=== PATIENT | male | born 1940 | race Caucasian/White ===

== ENCOUNTER 2016-05-06 09:00 | Outpatient (RCR) | payer MEDICARE ==
--- OUTSIDE RECORDS SUMMARY | 2016-03-03 15:03 | XMS REPORT | Continuity of Care Document ---
Author Author [facility] Organization [facility] Address Unknown Phone Unavailable Care Team Providers Care Plant Buyer Name Role Phone KALPANA ESTES MD PCP Insurance Providers Payer Name Policy Number Subscriber Name Relationship Wps Medicare [id number] Mikel Coronel 18 Self / Same As Patient [employer] Supp [id number] Mikel Coronel 18 Self / Same As Patient Advance Directives Directive Response Recorded Date/Time Advance Directives Yes 07/07/15 5:20am Health Care Power of Histologist Y LITTLE -- 07/07/15 5:20am Organ Donor No 07/07/15 5:20am Resuscitation Status Full Code 07/07/15 5:20am Chief Complaint and Reason for Visit Chief Complaint DILANTIN TOXICITY Reason for Visit Seizure disorder Problems Active Problems Medical Problem Onset Date Status Altered mental status Unknown Acute Chest wall pain Unknown Acute Leukocytosis Unknown Acute Leukocytosis Unknown Acute Malaise and fatigue Unknown Acute Nausea Unknown Acute Renal colic Unknown Acute Seizure disorder Unknown Acute Medications Current Home Medications Medication Dose Units Route Directions Days/Qty Instructions Start Date Sertraline Hcl 100 Mg 100 Mg Oral Daily 06/28/11 Docusate Sodium 100 Mg 100 Mg Oral Bedtime 02/21/14 Aspirin 81 Mg 81 Mg Oral Daily 02/14/15 Levetiracetam 500 Mg 500 Mg Oral Daily 02/14/15 Multivitamin W-Minerals/Lutein 1 Each 1 Each Oral Daily 02/14/15 Losartan Potassium 100 Mg 100 Mg Oral Daily 02/14/15 Lisinopril/Hydrochlorothiazide 1 Each 1 Each Oral Daily 02/14/15 Atorvastatin Calcium 20 Mg 20 Mg Oral Daily 30 07/07/15 Haloperidol 0.5 Mg 0.5 Mg Oral Twice A Day 180 07/07/15 Ranitidine Hcl (Ranitidine) 150 Mg 150 Mg Oral Daily as needed for Abdominal Pain 30 07/07/15 Lorazepam 1 Mg 1 Mg Oral Twice A Day 180 07/07/15 Phenytoin Sodium Extended 100 Mg 100 Mg Oral Twice A Day 30 Days 07/07 Past Home Medications Medication Directions Ordered Status Amoxicillin/Clavulanate Potassium 1 Tab Tablet, 1 Tab Oral Twice A Day Discontinued [Meloxican] , 11/20/10 Discontinued [Simvastatin ] , 11/20/10 Discontinued [Lisinpril] , 11/20/10 Discontinued Aspirin 325 Mg Tab, 325 Mg Oral Daily 06/28/11 Discontinued Clopidogrel Bisulfate 75 Mg Tablet, 75 Mg Oral Daily 06/28/11 Discontinued Acetaminophen/Hydrocodone Bitart 1 Ea Tab, 1 Ea Oral Q4hr Prn 06/28/11 Discontinued Ibuprofen 200 Mg Tab, 600 Mg Oral Bedtime 06/28/11 Discontinued Lorazepam 0.5 Mg Tablet, 1 Each Oral Q8hr Prn 06/28/11 Discontinued Mirtazapine 15 Mg Tab, 15 Mg Oral Bedtime 06/28/11 Discontinued Multivitamins W-Minerals 1 Each Tablet, 1 Tab Oral Daily 06/28/11 Discontinued Phenytoin 50 Mg Tab.chew, 200 Mg Oral Daily @ 0800 06/28/11 Discontinued Phenytoin 50 Mg Tab.chew, 300 Mg Oral Bedtime 06/28/11 Discontinued Hctz/Lisinopril (Zestoretic) 1 Tab Tablet, 20-25 Mg Oral Daily 06/28/11 Discontinued Nebivolol Hcl 20 Mg Tablet, 20 Mg Oral Daily 06/28/11 Discontinued Lorazepam (Ativan) 1 Mg Tablet, 1 Mg Oral Every 8HRS as needed for Anxiety Discontinued Phenytoin Sodium 100 Mg Cap, 200 Mg Oral Twice A Day 06/08/12 Discontinued Phenytoin Sodium 100 Mg Cap, 300 Mg Oral Bedtime 06/08/12 Discontinued Hydrocodone Bit/Acetaminophen 1 Tab Tablet, 1-2 Tab Oral Every 4HRS as needed for Pain 11/16/13 Discontinued Metoprolol Succinate 50 Mg Tab.sr.24h, 50 Mg Oral Daily 02/20/14 Discontinued Metoprolol Succinate (Toprol Xl) 50 Mg Tab.sr.24h, 50 Mg Oral Daily 02/21/14 Discontinued [I-Caps] , 1 Tab Oral Bedtime 02/21/14 Discontinued Potassium Gluconate 99 Mg Tablet.er, 99 Mg Oral Daily 02/21/14 Discontinued [Fluticasone Propionate] 1 [place] Naspr, 0 [place] Nasal Daily 02/24/14 Discontinued Levetiracetam 500 Mg Tab, 500 Mg Oral Twice A Day 02/24/14 Discontinued Haloperidol 0.5 Mg Tablet, 0.5 Mg Oral Twice A Day 07/07/15 Discontinued Ranitidine Hcl (Ranitidine) 150 Mg Tablet, 150 Mg Oral Daily for Abdominal Pain 07/07/15 Discontinued Social History Social History Problem Response Recorded Date/Time Alcohol Use Denies Use 07/07/2015 5:20am Recreational Drug Use No 07/07/2015 5:20am Recent Foreign Travel No 11/16/2013 1:56pm Recent Infectious Disease Exposure No 11/16/2013 1:56pm Hospitalization with Isolation Denies 11/16/2013 1:56pm Sexually Transmitted Disease No 07/07/2015 5:20am HIV/AIDS No 07/07/2015 5:20am Smoking Status Former Smoker 07/07/2015 5:20am Do you dip or chew tobacco? No 07/07/2015 2:30am Query Response Start Date Stop Date Smoking Status Former Smoker 02/14/2011 Hospital Discharge Instructions Patient Instructions Physician Instructions Patient Instructions/FollowUp: Follow PT/OT recommendations for fall risk prevention Patient Problems: Dilantin toxicity Falls Seizure d/o Dementia [facility] [place] DISCHARGE ORDERS Height (Feet): 5 Height (Inches): 11.00 Weight (Pounds): 240 Weight (Ounces): 3.0 Reason Pt Homebound Difficulty ambulating and fall risk I Have Seen Pt [id number]: Yes Date of Face to Face: July 08, 2015 Discharged To: Home Diagnosis/Conditions HH Order: Med administration PT/OT *I certify that based on my findings, the following services are medically necessary Home Health Services: Services: Nursing Services, Cake Winder-Evaluate & Treat, Physical Therapy-Evaluate & Treat My clinical findings support the need for the above services; see Diagnosis. Dicharge Diet: No Restrictions Daily Activity as Tolerated: Yes New, Converted, or Re-newed RX: Other (No new Rxes) I certify that this patient is under my care and that I, a nurse practitioner or a physician; a surgical services assistant working with me, had a face to face encounter that - meets the physician face to face encounter requirements with this patient as dated. Care Plan Patient Instructions:: Follow PT/OT recommendations for fall risk prevention Patient Problems: Dilantin toxicityFallsSeizure d/oDementiaHOH Plan of Care Discharge Date 07/08/15 12:46pm Disposition 01 HOME, SELF-CARE Instructions/Education Provided Epilepsy (GEN) Prescriptions See Medication Section Care Plan and Goals See Discharge Instructions Section Functional Status Query Response Date Recorded Patient Orientation Normal For Age July 07, 2015 11:04am Patient Orientation Person Place Situation July 08, 2015 12:50pm Comprehension Ability Understands Concepts July 08, 2015 8:00am Allergies, Adverse Reactions, Alerts No known allergies. Immunizations Name Given Type Date of Pneumonia Vaccine 06/10/12 Historical Hepatitis A No Historical Hepatitis B No Historical Tetanus Booster (TDap) Unknown Historical Vital Signs Acute Vital Signs Vital Response Date/Time Temperature (Fahrenheit) 97.5 degrees F (97.6 - 99.5) 07/08/2015 12:46pm Temperature (Calculated Celsius) 36.55557 degrees C (36.4 - 37.5) 07/08/2015 10:00am Temperature Source Tympanic 07/08/2015 12:46pm Pulse Rate (adult) 90 bpm (60 - 90) 07/08/2015 12:46pm Respiratory Rate 20 bpm (12 - 24) 07/08/2015 12:46pm O2 Sat by Pulse Oximetry 98 % (88 - 100) 07/08/2015 12:46pm Blood Pressure 117/74 mm Hg 07/08/2015 12:46pm Blood Pressure Mean 88 mm Hg 07/08/2015 10:00am Pain Pain Intensity 0 07/08/2015 10:00am Height (Feet) 5 feet 07/07/2015 5:20am Height (Inches) 11.00 inches 07/07/2015 5:20am Height (Calculated Centimeters) 180.130443 cm 07/07/2015 5:20am Weight (Pounds) 240 pounds 07/07/2015 5:20am Weight (Ounces) 3.0 oz 07/07/2015 5:20am Weight (Calculated Grams) 871442.218 gm 07/07/2015 5:20am Weight (Calculated Kilograms) 108.427617 kilograms 07/07/2015 5:20am Calculated BMI 33.5 07/07/2015 5:20am Results Laboratory Results Test Name Result Units Flags Reference Collection Date/Time Result Date/ Time Comments White Blood Count 10.4 10^3/uL 4.3-11.0 07/08/2015 5:08am 07/08/2015 5: 44am Red Blood Count 4.20 10^6/uL L 4.35-5.85 07/08/2015 5:08am 07/08/2015 5: 44am Hemoglobin 13.1 G/DL L 13.3-17.7 07/08/2015 5:08am 07/08/2015 5:44am Hematocrit 39 % L 40-54 07/08/2015 5:08am 07/08/2015 5:44am Mean Corpuscular Volume 92 FL 80-99 07/08/2015 5:08am 07/08/2015 5: 44am Mean Corpuscular Hemoglobin 31 PG 25-34 07/08/2015 5:08am 07/08/2015 5: 44am Mean Corpuscular Hemoglobin Concent 34 G/DL 32-36 07/08/2015 5:08am 5:44am Red Cell Distribution Width 13.4 % 10.0-14.5 07/08/2015 5:08am 2015 5:44am Platelet Count 179 10^3/uL 130-400 07/08/2015 5:08am 07/08/2015 5:44am Mean Platelet Volume 9.6 FL 7.4-10.4 07/08/2015 5:08am 07/08/2015 5: 44am Neutrophils (%) (Auto) 58 % 42-75 07/08/2015 5:08am 07/08/2015 5:44am Lymphocytes (%) (Auto) 22 % 12-44 07/08/2015 5:08am 07/08/2015 5:44am Monocytes (%) (Auto) 17 % H 0-12 07/08/2015 5:0807/08/2015 5:44am Eosinophils (%) (Auto) 4 % 0-10 07/08/2015 5:08am 07/08/2015 5:44am Basophils (%) (Auto) 0 % 0-10 07/08/2015 5:0807/08/2015 5:44am Neutrophils # (Auto) 6.0 X 10^3 1.8-7.8 07/08/2015 5:0807/08/2015 5: 44am Lymphocytes # (Auto) 2.3 X 10^3 1.0-4.0 07/08/2015 5:07/08/2015 5: 44am Monocytes # (Auto) 1.8 X 10^3 H 0.0-1.0 07/08/2015 5:07/08/2015 5: 44am Eosinophils # (Auto) 0.4 10^3/uL H 0.0-0.3 07/08/2015 5:07/08/2015 5 :44am Basophils # (Auto) 0.0 10^3/uL 0.0-0.1 07/08/2015 5:07/08/2015 5: 44am Neutrophils % (Manual) 83 % 07/07/2015 2:07/07/2015 2:53am Band Neutrophils 3 % 07/07/2015 2:07/07/2015 2:53am Lymphocytes % (Manual) 4 % 07/07/2015 2:07/07/2015 2:53am Monocytes % (Manual) 6 % 07/07/2015 2:07/07/2015 2:53am Eosinophils % (Manual) 0 % 07/07/2015 2:07/07/2015 2:53am Basophils % (Manual) 0 % 07/07/2015 2:07/07/2015 2:53am Reactive Lymphocytes 4 % 07/07/2015 2:07/07/2015 2:53am Blood Morphology Comment NORMAL 07/07/2015 2:07/07/2015 2: 53am Urine Color YELLOW 07/07/2015 4:00am 07/07/2015 4:21am Urine Clarity CLEAR 07/07/2015 4:00am 07/07/2015 4:21am Urine pH 5 5-9 07/07/2015 4:00am 07/07/2015 4:21am Urine Specific [place] 1.015 * 1.016-1.022 07/07/2015 4:00am 2015 4:21am Urine Protein NEGATIVE NEGATIVE 07/07/2015 4:00am 07/07/2015 4:21am Urine Glucose (UA) NEGATIVE NEGATIVE 07/07/2015 4:00am 07/07/2015 4: 21am Urine RBC (Auto) 2+ * NEGATIVE 07/07/2015 4:00am 07/07/2015 4:21am Urine Ketones NEGATIVE NEGATIVE 07/07/2015 4:00am 07/07/2015 4:21am Urine Nitrite NEGATIVE NEGATIVE 07/07/2015 4:00am 07/07/2015 4:21am Urine Bilirubin NEGATIVE NEGATIVE 07/07/2015 4:00am 07/07/2015 4: 21am Urine Urobilinogen NORMAL MG/DL NORMAL 07/07/2015 4:00am 07/07/2015 4: 21am Urine Leukocyte Esterase NEGATIVE NEGATIVE 07/07/2015 4:00am 2015 4:21am Urine RBC RARE /HPF 07/07/2015 4:00am 07/07/2015 4:21am Urine WBC NONE /HPF 07/07/2015 4:00am 07/07/2015 4:21am Urine Bacteria NEGATIVE /HPF 07/07/2015 4:00am 07/07/2015 4:21am Urine Squamous Epithelial Cells RARE /HPF 07/07/2015 4:00am 2015 4:21am Urine Crystals NONE /LPF 07/07/2015 4:00am 07/07/2015 4:21am Urine Casts NONE /LPF 07/07/2015 4:00am 07/07/2015 4:21am Urine Mucus NEGATIVE /LPF 07/07/2015 4:00am 07/07/2015 4:21am Urine Culture Indicated NO 07/07/2015 4:00am 07/07/2015 4:21am Sodium Level 139 MMOL/L 135-145 07/08/2015 5:08am 07/08/2015 6:53am Potassium Level 3.3 MMOL/L L 3.6-5.0 07/08/2015 5:08am 07/08/2015 6:53am Chloride Level 104 MMOL/L 98-107 07/08/2015 5:0807/08/2015 6:53am Carbon Dioxide Level 25 MMOL/L 21-32 07/08/2015 5:0807/08/2015 6: 53am Anion Gap 10 MMOL/L 5-14 07/08/2015 5:0807/08/2015 6:53am Blood Urea Nitrogen 14 MG/DL 7-18 07/08/2015 5:0807/08/2015 6:53am Creatinine 0.69 MG/DL 0.60-1.30 07/08/2015 5:0807/08/2015 6:53am BUN/Creatinine Ratio 20 07/08/2015 5:0807/08/2015 6:53am Estimat Glomerular Filtration Rate > 60 07/08/2015 5:082015 6:53am GFR INTERPRETIVE DATA UNITS FOR ESTIMATED GFR (eGFR): mL/min/1.73 M2 REFERENCE RANGE FOR ESTIMATED GFR (eGFR) eGFR NORMAL eGFR >60 MODERATELY DECREASED eGFR 30-59 SEVERLY DECREASED eGFR 15-29 KIDNEY FAILURE <15 (OR DIALYSIS) Glucose Level 122 MG/DL H 70-105 07/08/2015 5:0807/08/2015 6:53am Calcium Level 8.2 MG/DL L 8.5-10.1 07/08/2015 5:0807/08/2015 6:53am Total Bilirubin 0.5 MG/DL 0.1-1.0 07/08/2015 5:07/08/2015 6:53am Alkaline Phosphatase 115 U/L 40-136 07/08/2015 5:0807/08/2015 6: 53am Aspartate Amino Transf (AST/SGOT) 18 U/L 5-34 07/08/2015 5:082015 6:53am Alanine Aminotransferase (ALT/SGPT) 15 U/L 0-55 07/08/2015 5:0807/07 6:53am Total Protein 6.7 G/DL 6.4-8.2 07/08/2015 5:0807/08/2015 6:53am Albumin 3.9 G/DL 3.2-4.5 07/08/2015 5:0807/08/2015 6:53am Phenytoin (Dilantin) Level 15.2 UG/ML 10.0-20.0 07/08/2015 5:08am 07/07 6:53am Procedures No known history of procedures. Encounters Encounter Location Arrival/Admit Date Discharge/Depart Date Attending Provider Discharged Inpatient (obs) [facility] 07/07/15 4:35am 12:46pm SUNNI JENNINGS DO Recent Diagnosis Seizure disorder
[~2016-05-06 09:00] MED LIST: ACET-2267 PO; AGM875T PO; AMOX1TAB12 PO; ASP325T PO; ASPI81TA42 PO; ATOR20TA49 PO; ATOR20TA66 PO; CLOP75TA PO; CLPD75T PO; DCS100C PO; DIPH25TA65 PO; EYE VITAMINS; Fluticasone Propionate NS; HALO0.5T PO; HERB; HYDR-1231 PO; HYDR-2890 PO; HYDR-3720 PO; I-CAPS PO; IBP200T PO; LEVE500T PO; LEVE500T6 PO; LISI1TAB10 PO; LISINPRIL; LORA-794 PO; LORA1TAB PO; LOSA100T28 PO; MAGN400T6 PO; MELOXICAN; MENT396L TP; METO-272 PO; MIRT15TA6 PO; MRTZ15T PO; MULT-142 PO; MULT1TAB12 PO; NEBI20TA2 PO; OMG1KC PO; ONDA4TAB11 PO; PHEN-633 PO; PHEN100C11 PO; PHEN100C4 PO; PHEN50TA PO; PHN100C; POTA99TA13 PO; POTA99TA18 PO; RANI150T11 PO; RANI150T90 PO; SERT100T8 PO; SIMVASTATIN; SRTR100T PO; TAMS0.4C98 PO; [UNRECOGNIZED DRUG - OTHER]; [UNRECOGNIZED DRUG - OTHER]
== END 2016-06-01 | disposition home or self-care (01) ==
LOC: PULM 09:00
PROVIDERS: ATTEND Nurse Practitioner Family
DX: R06.02 Shortness of breath (principal)
CPT/HCPCS: 99211

== ENCOUNTER 2016-08-08 10:38 | Day surgery (SDC) | payer MEDICARE ==
[~2016-08-08] VITALS: Ht 180.3 cm; Wt 104.3 kg
--- OUTSIDE RECORDS SUMMARY | 2016-08-08 10:45 | XMS REPORT | Continuity of Care Document ---
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, COGNITIVE 10/01/2010 Ot 438.7 DISTURBANCES OF VISION 10/01/2010 Ot 719.41 JOINT PAIN-SHLDER 10/01/2010 Ot 780.39 OTHER CONVULSIONS 10/01/2010 Ot V57.1 PHYSICAL THERAPY NEC 10/01/2010 Ot V57.21 ENCOUNTER FOR OCCUPATIONAL THERAPY 10/01/2010 Ot V57.3 CARE INVOLVING SPEECH-LANGUAGE THERAPY 10/01/2010 Ot V58.69 OTH MED,LT,CURRENT USE 11/20/2010 Ot 272.4 HYPERLIPIDEMIA NEC/NOS 11/20/2010 Ot 368.8 VISUAL DISTURBANCES NEC 11/20/2010 Ot 401.9 HYPERTENSION NOS 11/20/2010 Ot 780.39 OTHER CONVULSIONS 11/20/2010 Ot 780.4 DIZZINESS AND GIDDINESS 11/20/2010 Ot V12.59 HX-CIRCULATORY SYST DIS,NEC 11/20/2010 Ot V58.69 OTH MED,LT,CURRENT USE 11/20/2010 Ot V76.44 SCREEN MAL NEOP-PROSTATE 01/01/2011 Ot 368.8 VISUAL DISTURBANCES NEC 01/01/2011 Ot 401.9 HYPERTENSION NOS 01/01/2011 Ot 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, COGNITIVE 01/01/2011 Ot 438.7 DISTURBANCES OF VISION 01/01/2011 Ot 719.41 JOINT PAIN-SHLDER 01/01/2011 Ot 780.39 OTHER CONVULSIONS 01/01/2011 Ot V57.1 PHYSICAL THERAPY NEC 01/01/2011 Ot V57.21 ENCOUNTER FOR OCCUPATIONAL THERAPY 01/01/2011 Ot V57.3 CARE INVOLVING SPEECH-LANGUAGE THERAPY 01/01/2011 Ot V58.69 OTH MED,LT,CURRENT USE 02/07/2011 Ot 368.8 VISUAL DISTURBANCES NEC 02/07/2011 Ot 401.9 HYPERTENSION NOS 02/07/2011 Ot 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, COGNITIVE 02/07/2011 Ot 438.7 DISTURBANCES OF VISION 02/07/2011 Ot 719.41 JOINT PAIN-SHLDER 02/07/2011 Ot 780.39 OTHER CONVULSIONS 02/07/2011 Ot V57.1 PHYSICAL THERAPY NEC 02/07/2011 Ot V57.21 ENCOUNTER FOR OCCUPATIONAL THERAPY 02/07/2011 Ot V57.3 CARE INVOLVING SPEECH-LANGUAGE THERAPY 02/07/2011 Ot V58.69 OTH MED,LT,CURRENT USE 06/26/2011 Ot 276.51 DEHYDRATION 06/26/2011 Ot 345.90 EPILEPSY UNSPEC W/O MENTION INTRACTABLE 06/26/2011 Ot 414.01 CORONARY ATHEROSCLEROSIS OF [place] CORON 06/26/2011 Ot 458.9 HYPOTENSION NOS 06/26/2011 Ot 719.46 JOINT PAIN-L/LEG 06/26/2011 Ot 780.79 OTH MALAISE FATIGUE 06/26/2011 Ot V03.82 PROPHYLACTIC VACC AGAINST STREPTOCOCCUS 06/26/2011 Ot V12.54 PERSONAL HX OF TIA, CEREBRAL INFARCTION 06/26/2011 Ot V15.82 HISTORY OF TOBACCO USE 06/26/2011 Ot V45.82 PERCUTANEOUS TRANSLUM CORON ANGIOPLASTY 06/28/2011 Ot 305.1 TOBACCO USE DISORDER 06/28/2011 Ot 311 DEPRESSIVE DISORDER NEC 06/28/2011 Ot 345.90 EPILEPSY UNSPEC W/O MENTION INTRACTABLE 06/28/2011 Ot 359.4 TOXIC MYOPATHY 06/28/2011 Ot 369.9 VISUAL LOSS NOS 06/28/2011 Ot 401.9 HYPERTENSION NOS 06/28/2011 Ot 414.01 CORONARY ATHEROSCLEROSIS OF [place] CORON 06/28/2011 Ot 438.7 DISTURBANCES OF VISION 06/28/2011 Ot 458.29 OTHER IATROGENIC HYPOTENSION 06/28/2011 Ot 562.10 DIVERTICULOSIS COLON (W/O MENT OF HEMORR 06/28/2011 Ot 715.36 LOC OSTEOARTH NOS-L/LEG 06/28/2011 Ot 780.79 OTH MALAISE FATIGUE 06/28/2011 Ot E942.2 ADV EFF ANTILIPEMICS 06/28/2011 Ot V45.82 PERCUTANEOUS TRANSLUM CORON ANGIOPLASTY 06/28/2011 Ot V57.1 PHYSICAL THERAPY NEC 06/28/2011 Ot V57.21 ENCOUNTER FOR OCCUPATIONAL THERAPY 06/12/2012 MEERA BROWN, KALPANA Mcdermott Ot 311 DEPRESSIVE DISORDER NEC 06/12/2012 KALPANA ESTES MD Ot 345.90 EPILEPSY UNSPEC W/O MENTION INTRACTABLE 06/12/2012 KALPANA ESTES MD Ot 401.9 HYPERTENSION NOS 06/12/2012 KALPANA ESTES MD Ot 414.01 CORONARY ATHEROSCLEROSIS OF [place] CORON 06/12/2012 KALPANA ESTES MD Ot 438.89 OTH LATE EFFECT-CEREBROVASCULAR DISEASE 06/12/2012 KALPANA ESTES MD Ot 486 PNEUMONIA, ORGANISM NOS 06/12/2012 KALPANA ESTES MD Ot 496 CHR AIRWAY OBSTRUCT NEC 06/12/2012 KALPANA ESTES MD Ot 518.0 PULMONARY COLLAPSE 06/12/2012 KALPANA ESTES MD Ot 781.99 NERV/MUSCULOSKEL SYS SYMP NEC 06/12/2012 KALPANA ESTES MD Ot V03.82 PROPHYLACTIC VACC AGAINST STREPTOCOCCUS 06/12/2012 KALPANA ESTES MD Ot V15.82 HISTORY OF TOBACCO USE 06/12/2012 KALPANA ESTES MD Ot V45.82 PERCUTANEOUS TRANSLUM CORON ANGIOPLASTY 11/16/2013 CLIFF ELI MD Ot 786.50 CHEST PAIN NOS 11/16/2013 CLIFF ELI MD Ot 786.52 PAINFUL RESPIRATION 02/23/2014 KALPANA ESTES MD Ot 272.0 02/23/2014 KALPANA ESTES MD Ot 278.00 02/23/2014 KALPANA ESTES MD Ot 293.0 02/23/2014 KALPANA ESTES MD Ot 294.20 02/23/2014 KALPANA ESTES MD Ot 311 02/23/2014 KALPANA ESETS MD Ot 345.90 02/23/2014 KALPANA ESTES MD Ot 366.9 02/23/2014 MEERA BROWN, KALPANA Mcdermott Ot 389.9 02/23/2014 MEERA BROWN, KALPANA Mcdermott Ot 401.9 02/23/2014 KALPANA ESTES MD Ot 414.01 02/23/2014 KALPANA ESTES MD Ot 496 02/23/2014 KALPANA ESTES MD Ot 602.9 02/23/2014 KALPANA ESTES MD Ot 696.1 02/23/2014 MEERA MD, KALPANA J Ot 715.36 02/23/2014 MEERA BROWN, KALPANA J Ot 788.30 02/23/2014 MEERA BROWN, KALPANA J Ot 995.93 02/23/2014 MEERA BROWN, KALPANA J Ot V12.54 02/23/2014 MEERA BROWN, KALPANA J Ot V12.79 02/23/2014 MEERA BROWN, KALPANA J Ot V15.52 02/23/2014 MEERA BROWN, KALPANA J Ot V15.82 02/23/2014 MEERA BROWN, KALPANA J Ot V45.82 02/23/2014 MEERA BROWN, KALPANA J Ot V45.89 02/23/2014 MEERA BROWN, KALPANA J Ot V85.31 02/24/2014 MEERA BROWN, KALPANA J Ot 272.0 02/24/2014 MEERA BROWN, KALPANA J Ot 278.00 02/24/2014 MEERA BROWN, KALPANA J Ot 293.0 02/24/2014 MEERA BROWN, KALPANA J Ot 294.20 02/24/2014 MEERA BROWN, KALPANA J Ot 311 02/24/2014 MEERA BROWN, KALPANA J Ot 345.90 02/24/2014 MEERA BROWN, KALPANA J Ot 366.9 02/24/2014 MEERA BROWN, KALPANA J Ot 389.9 02/24/2014 MEERA BROWN, KALPANA J Ot 401.9 02/24/2014 MEERA BROWN, KALPANA J Ot 414.01 02/24/2014 MEERA BROWN, KALPANA J Ot 496 02/24/2014 MEERA BROWN, KALPANA J Ot 602.9 02/24/2014 MEERA BROWN, KALPANA J Ot 696.1 02/24/2014 MEERA BROWN, KALPANA J Ot 715.36 02/24/2014 MEERA BROWN, KALPANA J Ot 788.30 02/24/2014 MEERA BROWN, KALPANA J Ot 995.93 02/24/2014 MEERA BROWN, KALPANA J Ot V12.54 02/24/2014 MEERA BROWN, KALPANA J Ot V12.79 02/24/2014 MEERA BROWN, KALPANA J Ot V15.52 02/24/2014 MEERA BROWN, KALPANA J Ot V15.82 02/24/2014 MEERA BROWN, KALPANA J Ot V45.82 02/24/2014 MEERA BROWN, KALPANA J Ot V45.89 02/24/2014 MEERA BROWN, KALPANA J Ot V85.31 02/24/2014 MEERA BROWN, KALPANA J Ot 272.0 PURE HYPERCHOLESTEROLEM 02/24/2014 KALPANA ESTES MD Ot 278.00 OBESITY, NOS 02/24/2014 KALPANA ESTES MD Ot 293.0 DELIRIUM DUE TO CONDITIONS CLASSIFIED EL 02/24/2014 KALPANA ESTES MD Ot 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, UNSPECIFIED, 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 02/24/2014 KALPANA ESTES MD Ot 311 DEPRESSIVE DISORDER NEC 02/24/2014 KALPANA ESTES MD Ot 345.90 EPILEPSY UNSPEC W/O MENTION INTRACTABLE 02/24/2014 KALPANA ESTES MD Ot 366.9 CATARACT NOS 02/24/2014 KALPANA ESTES MD Ot 389.9 HEARING LOSS NOS 02/24/2014 KALPANA ESTES MD Ot 401.9 HYPERTENSION NOS 02/24/2014 KALPANA ESTES MD Ot 414.01 CORONARY ATHEROSCLEROSIS OF [place] CORON 02/24/2014 KALPANA ESTES MD Ot 496 CHR AIRWAY OBSTRUCT NEC 02/24/2014 KALPANA ESTES MD Ot 602.9 PROSTATIC DISORDER NOS 02/24/2014 KALPANA ESTES MD Ot 696.1 OTHER PSORIASIS 02/24/2014 KALPANA ESTES MD Ot 715.36 LOC OSTEOARTH NOS-L/LEG 02/24/2014 KALPANA ESTES MD Ot 788.30 UNSPECIFIED URINARY INCONTINENCE 02/24/2014 KALPANA ESTES MD Ot 995.93 SIRS DUE TO NONINFECTIOUS PROCESS W/O AC 02/24/2014 KALPANA ESTES MD Ot V12.54 PERSONAL HX OF TIA, CEREBRAL INFARCTION 02/24/2014 KALPANA ESTES MD Ot V12.79 PERSONAL HISTORY OTH SPEC DIGESTIVE SYST 02/24/2014 KALPANA ESTES MD Ot V15.52 PERSONAL HISTORY OF TRAUMATIC BRAIN INJU 02/24/2014 KALPANA ESTES MD Ot V15.82 HISTORY OF TOBACCO USE 02/24/2014 KALPANA ESTES MD Ot V45.82 PERCUTANEOUS TRANSLUM CORON ANGIOPLASTY 02/24/2014 KALPANA ESTES MD Ot V45.89 POSTSURGICAL STATES NEC 02/24/2014 KALPANA ESTES MD Ot V85.31 BODY MASS INDEX 31.0-31.9, ADULT 07/17/2014 PAUL MCQUEEN ON AWAKE COUNSELOR Ot 780.79 OTH MALAISE FATIGUE 07/17/2014 PAUL MCQUEEN ON AWAKE COUNSELOR Ot 787.01 NAUSEA WITH VOMITING 08/02/2014 KALPANA ETSES MD Ot 345.90 08/02/2014 KALPANA ESTES MD Ot 780.79 08/02/2014 MEERA BROWN, KALPANA Mcdermott Ot 959.01 08/02/2014 MEERA BROWN, KALPANA Baldemar Ot E849.0 08/02/2014 MEERA BROWN, KALPANA Mcdermott Ot E888.9 08/04/2014 MEERA BROWN, KALPANA Mcdermott Ot 345.90 08/04/2014 MEERA BROWN, KALPANA Mcdermott Ot 780.79 08/04/2014 MEERA BROWN, KALPANA Mcdermott Ot 959.01 08/04/2014 MEERA BROWN, KALPANA Mcdermott Ot E849.0 08/04/2014 MEERA BROWN, KALPANA Mcdermott Ot E888.9 01/08/2015 MEERA BROWN, KALPANA Mcdermott Ot R06.00 01/08/2015 MEERA BROWN, KALPANA Mcdermott Ot R10.11 01/08/2015 MEERA BROWN, KALPANA Mcdermott Ot R11.0 01/08/2015 MEERA BROWN, KALPANA Mcdermott Ot R12 01/08/2015 KALPANA ESTES MD Ot R53.1 01/11/2015 MEERA BROWN, KALPANA Mcdermott Ot R06.00 01/11/2015 MEERA BROWN, KALPANA Mcdermott Ot R10.11 01/11/2015 MEERA BROWN, KALPANA Mcdermott Ot R11.0 01/11/2015 KALPANA ESTES MD Ot R12 01/11/2015 KALPANA ESTES MD Ot R53.1 01/12/2015 Ot 250.00 01/12/2015 Ot 401.9 01/12/2015 Ot 602.9 01/12/2015 Ot 780.4 01/12/2015 Ot 781.3 01/12/2015 Ot 785.0 01/12/2015 Ot 345.90 01/12/2015 Ot 401.9 01/12/2015 Ot 429.3 01/12/2015 Ot 518.0 01/12/2015 Ot 786.50 01/12/2015 Ot V12.54 01/12/2015 Ot V58.69 01/12/2015 Ot 397.0 01/12/2015 Ot 401.9 01/12/2015 Ot 424.0 01/12/2015 Ot 429.3 01/12/2015 Ot 401.9 01/12/2015 Ot 473.9 01/12/2015 Ot 368.9 01/12/2015 Ot 780.39 01/12/2015 Ot 780.4 01/12/2015 Ot V12.54 01/12/2015 Ot 272.4 01/12/2015 Ot 345.90 01/12/2015 Ot 401.9 01/12/2015 Ot 434.91 01/12/2015 Ot V58.69 01/12/2015 Ot V58.83 01/12/2015 Ot V76.44 01/12/2015 Ot 433.10 01/12/2015 Ot 434.91 01/12/2015 MEERA BROWN, KALPANA Mcdermott Ot 550.90 01/12/2015 MEERA BROWN, KALPANA Mcdermott Ot 562.10 01/12/2015 MEERA BROWN, KALPANA Mcdermott Ot 780.93 01/12/2015 MEERA BROWN, KALPANA Mcdermott Ot 786.2 01/12/2015 MEERA BROWN, KALPANA Mcdermott Ot 345.90 01/12/2015 MEERA BROWN, KALPANA Mcdermott Ot 780.79 01/12/2015 MEERA BROWN, KALPANA Mcdermott Ot 959.01 01/12/2015 MEERA BROWN, KALPANA Mcdermott Ot E849.0 01/12/2015 MEERA BROWN, KALPANA Mcdermott Ot E888.9 01/12/2015 MEERA BROWN, KALPANA Mcdermott Ot R06.00 01/12/2015 MEERA BROWN, KALPANA Mcdermott Ot R10.11 01/12/2015 MEERA BROWN, KALPANA Mcdermott Ot R11.0 01/12/2015 KALPANA ESTES MD Ot R12 01/12/2015 MEERA BROWN, KALPANA Mcdermott Ot R53.1 02/01/2015 KESHAV DERAS MD Ot I08.1 02/01/2015 KESHAV DERAS MD Ot I10 02/01/2015 KESHAV DERAS MD Ot I63.9 02/01/2015 KESHAV DERAS MD Ot I65.23 02/01/2015 KESHAV DERAS MD Ot R06.02 02/01/2015 KESHAV DERAS MD Ot R56.9 02/01/2015 KESHAV DERAS MD Ot R94.31 02/12/2015 KESHAV DERAS MD Ot I08.1 02/12/2015 KESHAV DERAS MD Ot I10 02/12/2015 KESHAV DERAS MD Ot I63.9 02/12/2015 KESHAV DERAS MD Ot I65.23 02/12/2015 KESHAV DERAS MD Ot R06.02 02/12/2015 KESHAV DERAS MD Ot R56.9 02/12/2015 KESHVA DERAS MD Ot R94.31 02/14/2015 KESHAV DERAS MD Ot I10 02/14/2015 KESHAV DERAS MD Ot I63.9 02/14/2015 KESHAV DERAS MD Ot R06.02 02/14/2015 KESHAV DERAS MD Ot R56.9 02/14/2015 KESHAV DERAS MD Ot R94.31 02/14/2015 KESHAV DERAS MD Ot E78.5 HYPERLIPIDEMIA, UNSPECIFIED 02/14/2015 KESHAV DERAS MD Ot H53.8 OTHER VISUAL DISTURBANCES 02/14/2015 KESHAV DERAS MD Ot I10 ESSENTIAL (PRIMARY) HYPERTENSION 02/14/2015 KESHAV DERAS MD Ot I25.10 ATHSCL HEART DISEASE OF [place] CORONARY 02/14/2015 KESHAV DERAS MD Ot 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 02/14/2015 KESHAV DERAS MD Ot I69.398 OTHER SEQUELAE OF CEREBRAL INFARCTION 02/14/2015 KESHAV DERAS MD Ot I70.201 UNSP ATHSCL [place] ARTERIES OF [facility] 02/14/2015 KESHAV DERAS MD Ot R94.39 ABNORMAL RESULT OF OTHER CARDIOVASCULAR 02/14/2015 KESHAV DERAS MD Ot Z79.899 OTHER CUSTODIAL (CURRENT) DRUG THERAPY 02/14/2015 KESHAV DERAS MD Ot Z87.891 PERSONAL HISTORY OF NICOTINE DEPENDENCE 02/14/2015 KESHAV DERAS MD Ot Z98.61 CORONARY ANGIOPLASTY STATUS 02/14/2015 KESHAV DERAS MD Ot I10 02/14/2015 KESHAV DERAS MD Ot I63.9 02/14/2015 KESHAV DERAS MD Ot R06.02 02/14/2015 KESHAV DERAS MD Ot R56.9 02/14/2015 KESHAV DERAS MD Ot R94.31 03/20/2015 Ot 250.00 03/20/2015 Ot 401.9 03/20/2015 Ot 602.9 03/20/2015 Ot 780.4 03/20/2015 Ot 781.3 03/20/2015 Ot 785.0 03/20/2015 Ot 345.90 03/20/2015 Ot 401.9 03/20/2015 Ot 429.3 03/20/2015 Ot 518.0 03/20/2015 Ot 786.50 03/20/2015 Ot V12.54 03/20/2015 Ot V58.69 03/20/2015 Ot 397.0 03/20/2015 Ot 401.9 03/20/2015 Ot 424.0 03/20/2015 Ot 429.3 03/20/2015 Ot 401.9 03/20/2015 Ot 473.9 03/20/2015 Ot 368.9 03/20/2015 Ot 780.39 03/20/2015 Ot 780.4 03/20/2015 Ot V12.54 03/20/2015 Ot 272.4 03/20/2015 Ot 345.90 03/20/2015 Ot 401.9 03/20/2015 Ot 434.91 03/20/2015 Ot V58.69 03/20/2015 Ot V58.83 03/20/2015 Ot V76.44 03/20/2015 Ot 433.10 03/20/2015 Ot 434.91 03/20/2015 MEERA BROWN, [facility] Ot 550.90 03/20/2015 MEERA BROWN, [facility] Ot 562.10 03/20/2015 MEERA BROWN, [facility] Ot 780.93 03/20/2015 MEERA BROWN, [facility] Ot 786.2 03/20/2015 MEERA BROWN, [facility] Ot 345.90 03/20/2015 MEERA BROWN, [facility] Ot 780.79 03/20/2015 MEERA BROWN, [facility] Ot 959.01 03/20/2015 MEERA BROWN, [facility] Ot E849.0 03/20/2015 MEERA BROWN, [facility] Ot E888.9 03/20/2015 MEERA BROWN, [facility] Ot R06.00 03/20/2015 MEERA BROWN, [facility] Ot R10.11 03/20/2015 MEERA BROWN, [facility] Ot R11.0 03/20/2015 MEERA BROWN, KALPANA J Ot R12 03/20/2015 MEERA BROWN, [facility] Ot R53.1 03/20/2015 BRAEDEN BROWN, KESHAV Mcdermott Ot I08.1 03/20/2015 BRAEDEN BROWN, KESHAV Mcdermott Ot I10 03/20/2015 KESHAV DERAS MD Ot I63.9 03/20/2015 KESHAV DERAS MD Ot I65.23 03/20/2015 KESHAV DERAS MD Ot R06.02 03/20/2015 BRAEDEN BROWN, KESHAV Mcdermott Ot R56.9 03/20/2015 BRAEDEN BROWN, KESHAV Mcdermott Ot R94.31 03/20/2015 BRAEDEN BROWN, KESHAV Mcdermott Ot I10 03/20/2015 BRAEDEN BROWN, KESHAV Mcdermott Ot I63.9 03/20/2015 BRAEDEN BROWN, KESHAV Mcdermott Ot R06.02 03/20/2015 BRAEDEN BROWN, KESHAV Mcdermott Ot R56.9 03/20/2015 BRAEDEN BROWN, KESHAV Mcdermott Ot R94.31 03/20/2015 GRISELDA RAMIREZ DO Ot G47.10 HYPERSOMNIA, UNSPECIFIED 03/20/2015 GRISELDA RAMIREZ DO Ot R06.83 SNORING 03/20/2015 GRISELDA RAMIREZ DO Ot Z86.73 PRSNL HX OF TIA (TIA), AND CEREB INFRC W 07/08/2015 SUNNI JENNINGS DO Ot E78.5 HYPERLIPIDEMIA, UNSPECIFIED 07/08/2015 SUNNI JENNINGS DO Ot F03.90 UNSPECIFIED DEMENTIA 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L 07/08/2015 SUNNI JENNINSG DO Ot G40.909 EPILEPSY, UNSP, NOT INTRACTABLE, WITHOUT 07/08/2015 SUNNI JENNINGS DO Ot I10 ESSENTIAL (PRIMARY) HYPERTENSION 07/08/2015 SUNNI JENNINGS DO Ot I25.10 ATHSCL HEART DISEASE OF [place] CORONARY 07/08/2015 SUNNI JENNINGS DO Ot R40.0 SOMNOLENCE 07/08/2015 SUNNI JENNINGS DO Ot R41.0 DISORIENTATION, UNSPECIFIED 07/08/2015 SUNNI JENNINGS DO Ot T42.0X5A ADVERSE EFFECT OF HYDANTOIN DERIVATIVES, 07/08/2015 SUNNI JENNINGS DO Ot Z95.5 PRESENCE OF CORONARY ANGIOPLASTY IMPLANT 09/12/2015 Ot 345.90 EPILEPSY UNSPEC W/O MENTION INTRACTABLE 09/12/2015 Ot 401.9 HYPERTENSION NOS 09/12/2015 Ot 429.3 CARDIOMEGALY 09/12/2015 Ot 518.0 PULMONARY COLLAPSE 09/12/2015 Ot 786.50 CHEST PAIN NOS 09/12/2015 Ot V12.54 PERSONAL HX OF TIA, CEREBRAL INFARCTION 09/12/2015 Ot V58.69 OTH MED,LT,CURRENT USE 09/12/2015 Ot 368.9 VISUAL DISTURBANCE NOS 09/12/2015 Ot 780.39 OTHER CONVULSIONS 09/12/2015 Ot 780.4 DIZZINESS AND GIDDINESS 09/12/2015 Ot V12.54 PERSONAL HX OF TIA, CEREBRAL INFARCTION 09/12/2015 Ot 272.4 HYPERLIPIDEMIA NEC/NOS 09/12/2015 Ot 345.90 EPILEPSY UNSPEC W/O MENTION INTRACTABLE 09/12/2015 Ot 401.9 HYPERTENSION NOS 09/12/2015 Ot 434.91 CEREBRAL ART OCCLUSION NOS W CEREBRAL IN 09/12/2015 Ot V58.69 OTH MED,LT,CURRENT USE 09/12/2015 Ot V58.83 ENCOUNTER FOR THERAPEUTIC DRUG MONITORIN 09/12/2015 Ot V76.44 SCREEN MAL NEOP-PROSTATE 09/12/2015 Ot 433.10 CAROTID ARTERY OCCLUSION W O CEREBRAL IN 09/12/2015 Ot 434.91 CEREBRAL ART OCCLUSION NOS W CEREBRAL IN 09/12/2015 MEERA BROWN, KALPANA Mcdermott Ot 550.90 UNILAT INGUINAL HERNIA 09/12/2015 KALPANA ESTES MD Ot 562.10 DIVERTICULOSIS COLON (W/O MENT OF HEMORR 09/12/2015 KALPANA ESTES MD Ot 780.93 MEMORY LOSS 09/12/2015 KALPANA ESTES MD Ot 786.2 COUGH 09/12/2015 KALPANA ESTES MD Ot 345.90 EPILEPSY UNSPEC W/O MENTION INTRACTABLE 09/12/2015 KALPANA ESTES MD Ot 780.79 OTH MALAISE FATIGUE 09/12/2015 MEERA BROWN, KALPANA Mcdermott Ot 959.01 HEAD INJURY, NOS 09/12/2015 KALPANA ESTES MD Ot E849.0 ACCIDENT IN HOME 09/12/2015 KALPANA ESTES MD Ot E888.9 FALL NOS 09/12/2015 KALPANA ESTES MD Ot R06.00 DYSPNEA, UNSPECIFIED 09/12/2015 KALPANA ESTES MD Ot R10.11 RIGHT UPPER QUADRANT PAIN 09/12/2015 KALPANA ESTES MD Ot R11.0 NAUSEA 09/12/2015 KALPANA ESTES MD Ot R12 HEARTBURN 09/12/2015 KALPANA ESTES MD Ot R53.1 WEAKNESS 09/12/2015 KESHAV DERAS MD Ot I08.1 RHEUMATIC DISORDERS OF BOTH [place] AND T 09/12/2015 KESHAV DERAS MD Ot I10 ESSENTIAL (PRIMARY) HYPERTENSION 09/12/2015 KESHAV DERAS MD Ot I63.9 CEREBRAL INFARCTION, UNSPECIFIED 09/12/2015 KESHAV DERAS MD Ot I65.23 OCCLUSION AND STENOSIS OF BILATERAL BLUE 09/12/2015 KESHAV DERAS MD Ot R06.02 SHORTNESS OF BREATH 09/12/2015 KESHAV DERAS MD Ot R56.9 UNSPECIFIED CONVULSIONS 09/12/2015 KESHAV DERAS MD Ot R94.31 ABNORMAL ELECTROCARDIOGRAM [ECG] [EKG] 09/12/2015 KESHAV DERAS MD Ot I10 ESSENTIAL (PRIMARY) HYPERTENSION 09/12/2015 KESHAV DERAS MD Ot I63.9 CEREBRAL INFARCTION, UNSPECIFIED 09/12/2015 KESHAV DERAS MD Ot R06.02 SHORTNESS OF BREATH 09/12/2015 KESHAV DERAS MD Ot R56.9 UNSPECIFIED CONVULSIONS 09/12/2015 KESHAV DERAS MD Ot R94.31 ABNORMAL ELECTROCARDIOGRAM [ECG] [EKG] 10/05/2015 GRISELDA RAMIREZ DO Ot R06.02 SHORTNESS OF BREATH 10/11/2015 GRISELDA RAMIREZ DO Ot R06.02 SHORTNESS OF BREATH 01/23/2016 Ot 345.90 EPILEPSY UNSPEC W/O MENTION INTRACTABLE 01/23/2016 Ot 401.9 HYPERTENSION NOS 01/23/2016 Ot 429.3 CARDIOMEGALY 01/23/2016 Ot 518.0 PULMONARY COLLAPSE 01/23/2016 Ot 786.50 CHEST PAIN NOS 01/23/2016 Ot V12.54 PERSONAL HX OF TIA, CEREBRAL INFARCTION 01/23/2016 Ot V58.69 OTH MED,LT,CURRENT USE 01/23/2016 Ot 368.9 VISUAL DISTURBANCE NOS 01/23/2016 Ot 780.39 OTHER CONVULSIONS 01/23/2016 Ot 780.4 DIZZINESS AND GIDDINESS 01/23/2016 Ot V12.54 PERSONAL HX OF TIA, CEREBRAL INFARCTION 01/23/2016 Ot 272.4 HYPERLIPIDEMIA NEC/NOS 01/23/2016 Ot 345.90 EPILEPSY UNSPEC W/O MENTION INTRACTABLE 01/23/2016 Ot 401.9 HYPERTENSION NOS 01/23/2016 Ot 434.91 CEREBRAL ART OCCLUSION NOS W CEREBRAL IN 01/23/2016 Ot V58.69 OTH MED,LT,CURRENT USE 01/23/2016 Ot V58.83 ENCOUNTER FOR THERAPEUTIC DRUG MONITORIN 01/23/2016 Ot V76.44 SCREEN MAL NEOP-PROSTATE 01/23/2016 Ot 433.10 CAROTID ARTERY OCCLUSION W O CEREBRAL IN 01/23/2016 Ot 434.91 CEREBRAL ART OCCLUSION NOS W CEREBRAL IN 01/23/2016 KALPANA ESTES MD Ot 550.90 UNILAT INGUINAL HERNIA 01/23/2016 KALPANA ESTES MD Ot 562.10 DIVERTICULOSIS COLON (W/O MENT OF HEMORR 01/23/2016 KALPANA ESTES MD Ot 780.93 MEMORY LOSS 01/23/2016 KALPANA ESTES MD Ot 786.2 COUGH 01/23/2016 KALPANA ESTES MD Ot 345.90 EPILEPSY UNSPEC W/O MENTION INTRACTABLE 01/23/2016 KALPANA ESTES MD Ot 780.79 OTH MALAISE FATIGUE 01/23/2016 KALPANA ESTES MD Ot 959.01 HEAD INJURY, NOS 01/23/2016 KALPANA ESTES MD Ot E849.0 ACCIDENT IN HOME 01/23/2016 KALPANA ESTES MD Ot E888.9 FALL NOS 01/23/2016 KALPANA ESTES MD Ot R06.00 DYSPNEA, UNSPECIFIED 01/23/2016 KALPANA ESTES MD Ot R10.11 RIGHT UPPER QUADRANT PAIN 01/23/2016 KALPANA ESTES MD Ot R11.0 NAUSEA 01/23/2016 KALPANA ESTES MD Ot R12 HEARTBURN 01/23/2016 KALPANA ESTES MD Ot R53.1 WEAKNESS 01/23/2016 KESHAV DERAS MD Ot I08.1 RHEUMATIC DISORDERS OF BOTH MITRAL AND T 01/23/2016 KESHAV DERAS MD Ot I10 ESSENTIAL (PRIMARY) HYPERTENSION 01/23/2016 KESHAV DERAS MD Ot I63.9 CEREBRAL INFARCTION, UNSPECIFIED 01/23/2016 KESHAV DERAS MD Ot I65.23 OCCLUSION AND STENOSIS OF BILATERAL BLUE 01/23/2016 KESHAV DERAS MD Ot R06.02 SHORTNESS OF BREATH 01/23/2016 KESHAV DERAS MD Ot R56.9 UNSPECIFIED CONVULSIONS 01/23/2016 KESHAV DERAS MD Ot R94.31 ABNORMAL ELECTROCARDIOGRAM [ECG] [EKG] 01/23/2016 KESHAV DERAS MD Ot I10 ESSENTIAL (PRIMARY) HYPERTENSION 01/23/2016 KESHAV DERAS MD Ot I63.9 CEREBRAL INFARCTION, UNSPECIFIED 01/23/2016 KESHAV DERAS MD Ot R06.02 SHORTNESS OF BREATH 01/23/2016 KESHAV DERAS MD Ot R56.9 UNSPECIFIED CONVULSIONS 01/23/2016 KESHAV DERAS MD Ot R94.31 ABNORMAL ELECTROCARDIOGRAM [ECG] [EKG] 01/23/2016 GRISELDA RAMIREZ DO Ot R06.02 SHORTNESS OF BREATH 01/29/2016 BRYANT WGANER MD Ot A41.9 SEPSIS, UNSPECIFIED ORGANISM 01/29/2016 BRYANT WAGNER MD Ot E78.00 PURE HYPERCHOLESTEROLEMIA, UNSPECIFIED 01/29/2016 BRYANT WAGNER MD Ot E83.42 HYPOMAGNESEMIA 01/29/2016 BRYANT WAGNER MD Ot E87.6 HYPOKALEMIA 01/29/2016 BRYANT WAGNER MD Ot F32.9 MAJOR DEPRESSIVE DISORDER, SINGLE EPISOD 01/29/2016 BRYANT WAGNER MD Ot G40.909 EPILEPSY, UNSP, NOT INTRACTABLE, WITHOUT 01/29/2016 BRYANT WAGNER MD Ot H54.7 UNSPECIFIED VISUAL LOSS 01/29/2016 BRYANT WAGNER MD Ot I11.0 HYPERTENSIVE HEART DISEASE WITH HEART FA 01/29/2016 BRYANT WAGNER MD Ot I25.10 ATHSCL HEART DISEASE OF [place] CORONARY 01/29/2016 BRYANT WAGNER MD Ot I50.9 HEART FAILURE, UNSPECIFIED 01/29/2016 BRYANT WAGNER MD Ot I69.398 OTHER SEQUELAE OF CEREBRAL INFARCTION 01/29/2016 BRYANT WAGNER MD Ot K40.00 BI INGUINAL HERNIA, W OBST, W/O GANGRENE 01/29/2016 BRYANT WAGNER MD Ot K42.9 UMBILICAL HERNIA WITHOUT OBSTRUCTION OR 01/29/2016 BRYANT WAGNER MD Ot K52.9 NONINFECTIVE GASTROENTERITIS AND COLITIS 01/29/2016 BRYANT WAGNER MD Ot N40.1 BENIGN PROSTATIC HYPERPLASIA WITH LOWER 01/29/2016 BRYANT WAGNER MD Ot R09.02 HYPOXEMIA 01/29/2016 BRYANT WAGNER MD Ot R33.9 RETENTION OF URINE, UNSPECIFIED 01/29/2016 BRYANT WAGNER MD Ot R35.0 FREQUENCY OF MICTURITION 01/29/2016 BRYANT WAGNER MD Ot R35.1 NOCTURIA 01/29/2016 BRYANT WAGNER MD Ot R39.198 OTHER DIFFICULTIES WITH MICTURITION 01/29/2016 BRYANT WAGNER MD Ot R53.1 WEAKNESS 01/29/2016 BRYANT WAGNER MD Ot S27.399S OTHER INJURIES OF LUNG, UNSPECIFIED, SEQ 01/29/2016 BRYANT WAGNER MD Ot T65.94XS TOXIC EFFECT OF UNSPECIFIED SUBSTANCE, U 01/29/2016 BRYANT WAGNER MD Ot Z23 ENCOUNTER FOR IMMUNIZATION 01/29/2016 BRYANT WAGNER MD Ot Z87.891 PERSONAL HISTORY OF NICOTINE DEPENDENCE 01/29/2016 BRYANT WAGNER MD Ot Z95.5 PRESENCE OF CORONARY ANGIOPLASTY IMPLANT 01/29/2016 BRYNAT WAGNER MD Ot Z99.81 DEPENDENCE ON SUPPLEMENTAL OXYGEN 03/04/2016 SANTOSH KINSEY APRN Ot R06.02 SHORTNESS OF BREATH 03/04/2016 SANTOSH KINSEY APRN Ot R06.02 SHORTNESS OF BREATH 04/02/2016 SANTOSH KINSEY APRN Ot R06.02 SHORTNESS OF BREATH 04/10/2016 SANTOSH KINSEY APRN Ot R06.02 SHORTNESS OF BREATH 06/01/2016 SANTOSH KINSEY APRN Ot R06.02 SHORTNESS OF BREATH Procedures Code Description Performed By Performed On 81.92 INJECTION INTO JOINT 06/25/2011 99.23 INJECT STEROID 03.31 SPINAL TAP 2014 Encounters ACCT No. Visit Date/Time Discharge Status Pt. Type Provider Facility Loc./Unit Complaint [id number] 05/06/2016 09:00:00 2016 00:01:00 DIS Outpatient SANTOSH KINSEY APRN [facility] PULM DYSPNEA [id number] 01/23/2016 21:05:00 2015 16:15:00 DIS Inpatient BRYANT WAGNER MD [facility] 4TH SEPSIS, COLITIS, URINARY OBSTRUCTION, [id number] 07/07/2015 04:35:00 2015 12:46:00 DIS Inpatient SUNNI JENNINGS DO [facility] 4TH DILANTIN TOXICITY [id number] 03/19/2015 19:40:00 2015 06:45:00 DIS Outpatient GRISELDA RAMIREZ DO [facility] SLEEP SNORING, EXCESSIVE DAYTIME SLEEPINESS [id number] 02/14/2015 06:55:00 2015 13:40:00 DIS Outpatient KESHAV DERAS MD [facility] CATH ABNORMAL STRESS TEST,CAD,HTN,HLP,SOB [id number] 12/13/2014 09:26:00 2014 23:59:59 CLS Outpatient KALPANA ESTES MD [facility] RAD NAUSEA,ABD PAIN,HEART BURN [id number] 07/17/2014 18:12:00 2014 20:51:00 DIS Emergency PAUL MCQUEEN APRN [facility] ER NAUSEA/VOMITING [id number] 07/13/2014 07:30:00 2014 23:59:59 CLS Outpatient KALPANA ESTES MD [facility] RAD RECENT HEAD TRAUMA [id number] 02/20/2014 18:45:00 2014 11:05:00 DIS Inpatient KALPANA ESTES MD [facility] 4TH ALTERED MENTAL STATUS;SEIZURE DISORDER [id number] 11/16/2013 13:43:00 2013 17:44:00 DIS Emergency SREEDHAR BROWN, CLIFF A [facility] ER SOA/RIGHT RIB PAIN [id number] 06/14/2013 07:24:00 2013 23:59:59 CLS Outpatient KALPANA ESTES MD [facility] RAD STOMACH DISCOMFORT, CHONIC COUGH, HX OF CVA [id number] 06/08/2012 13:03:00 2012 12:42:00 DIS Inpatient KALPANA ESTES MD [facility] 4TH PNEUMONIA,SEIZURE [id number] 06/02/2016 15:00:00 PEN Preadmit SANTOSH KINSEY APRN [facility] PULM DYSPNEA [id number] 09/12/2015 12:52:00 ACT Outpatient GRISELDA RAMIREZ DO [facility] RT DYSPNEA [id number] 01/22/2015 07:45:00 ACT Outpatient KESHAV DERAS MD [facility] CARD CVA,ABNORMAL EKG,HTN,SEIZURE, DYSPNEA [id number] 01/12/2015 13:50:00 ACT Outpatient BRAEDEN BROWN, KESHAV Mcdermott [facility] RAD CVA,ABNORMAL EKG,DYSPNEA,HTN,SEIZURE [id number] 04/12/2012 08:56:00 Document Registration [id number] 06/26/2011 10:30:00 Document Registration [id number] 06/22/2011 16:35:00 Document Registration [id number] 03/20/2011 09:04:00 Document Registration [id number] 01/13/2011 14:29:00 Document Registration [id number] 01/01/2011 13:44:00 Document Registration [id number] 11/20/2010 18:14:00 Document Registration [id number] 11/20/2010 13:43:00 Document Registration [id number] 11/20/2010 10:18:00 Document Registration [id number] 10/01/2010 12:53:00 Document Registration [id number] 01/15/2010 09:44:00 Document Registration [id number] 11/14/2009 09:15:00 Document Registration [id number] 11/13/2009 09:28:00 Document Registration [id number] 11/09/2009 09:49:00 Document Registration
--- NOTE | 2016-08-08 10:56 | ED GI ---
General Chief Complaint: Abdominal/GI Problems Stated Complaint: POSS RUPTURED HERNIA Source of Information: Patient Exam Limitations: No Limitations History of Present Illness Time Seen By Provider: 10:54 Initial Comments To ER with reports of a hernia. He states that he was on the toilet yesterday when he felt something bulge out in his left groin and it was a very painful burning sensation. Since then he's had a persistent bulge left side of the groin and is concerned that he may have a strain related hernia. He's not been passing any gas since yesterday. no nausea or vomiting or fevers. Timing/Duration: 12-24 Hours Severity/Quality: Moderate Location: LLQ Radiation: No Radiation Associated Symptoms: Denies Symptoms Allergies and Home Medications Allergies Coded Allergies: No Known Drug Allergies (Unverified , 02/24/14) Home Medications Acetaminophen 500 Mg Tablet, 500-1,000 MG PO HS PRN for PAIN, (Reported) Amoxicillin/Potassium Clav 1 Each Tablet, 875 MG PO BID WITH MEALS, #14 Prescribed by: BRYANT WAGNER on 01/29/16 1224 Aspirin 81 Mg Tab.chew, 81 MG PO DAILY, (Reported) Atorvastatin Calcium 20 Mg Tablet, 20 MG PO DAILY, (Reported) Docusate Sodium 100 Mg Cap, 100 MG PO HS, (Reported) Levetiracetam 500 Mg Tablet, 500 MG PO DAILY, (Reported) Losartan Potassium 100 Mg Tablet, 100 MG PO DAILY, (Reported) Magnesium Oxide 400 Mg Tablet, 400 MG PO BID, #30 Prescribed by: BRYANT WAGNER on 01/29/16 1224 Multivitamin W-Minerals/Lutein 1 Each Tablet, 1 TAB PO HS, (Reported) [place] 3 Polyunsat Fatty Acids 1,000 Mg Cap, 1,000 MG PO HS, (Reported) Ondansetron 4 Mg Tab.rapdis, 4 MG PO Q8H PRN for NAUSEA, #30 Ref 1 Prescribed by: BRYANT WAGNER on 01/29/16 1224 Phenytoin Sodium Extended 100 Mg Capsule, 200 MG PO BID, (Reported) TAKES 2 (100MG) CAPSULES Ranitidine HCl 150 Mg Tablet, 150 MG PO DAILY PRN for HEARTBURN, (Reported) Sertraline HCl 100 Mg Tablet, 100 MG PO DAILY, (Reported) Tamsulosin HCl 0.4 Mg Cap, 0.4 MG PO DAILY, #30 Ref 5 Prescribed by: BRYANT WAGNER on 01/29/16 1224 Review of Systems Constitutional: see HPI EENTM: No Symptoms Reported Respiratory: No Symptoms Reported Cardiovascular: No Symptoms Reported Gastrointestinal: See HPI, Abdominal Pain Genitourinary: No Symptoms Reported Musculoskeletal: no symptoms reported Skin: no symptoms reported Psychiatric/Neurological: No Symptoms Reported Endocrine: No Symptoms Reported Hematologic/Lymphatic: No Symptoms Reported Past Dkiykjj-Xyoshf-Fyzugu Hx Patient Social History Type Used: Pipe Former Smoker/When Quit: Feb 14, 2011 Recent Foreign Travel: No Contact w/Someone Who Travel: No Recent Hopitalizations: Yes Immunizations Up To Date Tetanus Booster (TDap): Unknown PED Vaccines UTD: No Date of Pneumonia Vaccine: June 10, 2012 Seasonal Allergies Seasonal Allergies: No Surgeries HX Surgeries: Yes (BOOP-LUNG SURGERY, CATARACTS, DETACHED RETINA) Surgeries: Coronary Stent, Eye Surgery, Tonsillectomy Respiratory Hx Respiratory Disorders: Yes Cardiovascular Hx Cardiac Disorders: Yes (STENT) Cardiac Disorders: Coronary Artery Disease, Hypertension Neurological Hx Neurological Disorders: Yes Neurological Disorders: Dementia, Seizure Disorder, Stroke Reproductive System Hx Reproductive Disorders: No Sexually Transmitted Disease: No HIV/AIDS: No Genitourinary Hx Genitourinary Disorders: Yes (pt admits to trouble urinating for years) Gastrointestinal Hx Gastrointestinal Disorders: No Musculoskeletal Hx Musculoskeletal Disorders: No Endocrine Hx Endocrine Disorders: No HEENT HX ENT Disorders: Yes (DETACHED RETINA HX, vision deficits from stroke) HEENT Disorders: Cataract Hearing Impairment: Bilateral Hearing Aide Cancer Hx Cancer: No Psychosocial Hx Psychiatric Problems: Yes Behavioral Health Disorders: Depression Integumentary HX Skin/Integumentary Disorder: Yes Skin/Integumentary Disorders: Psoriasis Blood Transfusions Hx Blood Disorders: No Adverse Reaction to a Blood Tr: No Family Medical History Significant Family History: CAD Over 55 Years Old Family Medial History: Cardiovascular disease 19 FATHER, Onset:Unknown Cataracts 19 MOTHER, Onset:Unknown FH: stomach cancer 19 MOTHER, Onset:Unknown Glaucoma 19 MOTHER, Onset:Unknown Physical Exam Vital Signs VS - Last 72 Hours, by Label 08/08/16 10:57 Temp 98.3 Pulse 84 Resp 16 B/P (MAP) 144/93 Pulse Ox 98 Capillary Refill : General Appearance: WD/WN, no apparent distress HEENT: PERRL/EOMI, normal ENT inspection Neck: non-tender, full range of motion Respiratory: no respiratory distress, no accessory muscle use Gastrointestinal: normal bowel sounds, soft, other (nonreducible left inguinal hernia) Extremities: normal range of motion, non-tender Neurologic/Psychiatric: alert, normal mood/affect, oriented x 3 Skin: normal color Progress/Results/Core Measures Results/Orders Lab Results Laboratory Tests Test 08/08/16 10:53 Range/Units White Blood Count 10.6 4.3-11.0 10^3/uL Red Blood Count 4.81 4.35-5.85 10^6/uL Hemoglobin 14.3 13.3-17.7 G/DL Hematocrit 44 40-54 % Mean Corpuscular Volume 91 80-99 FL Mean Corpuscular Hemoglobin 30 25-34 PG Mean Corpuscular Hemoglobin Concent 33 32-36 G/DL Red Cell Distribution Width 14.9 H 10.0-14.5 % Platelet Count 252 130-400 10^3/uL Mean Platelet Volume 9.3 7.4-10.4 FL Neutrophils (%) (Auto) 66 42-75 % Lymphocytes (%) (Auto) 18 12-44 % Monocytes (%) (Auto) 12 0-12 % Eosinophils (%) (Auto) 4 0-10 % Basophils (%) (Auto) 1 0-10 % Neutrophils # (Auto) 7.0 1.8-7.8 X 10^3 Lymphocytes # (Auto) 1.9 1.0-4.0 X 10^3 Monocytes # (Auto) 1.3 H 0.0-1.0 X 10^3 Eosinophils # (Auto) 0.4 H 0.0-0.3 10^3/uL Basophils # (Auto) 0.1 0.0-0.1 10^3/uL Sodium Level 139 135-145 MMOL/L Potassium Level 4.2 3.6-5.0 MMOL/L Chloride Level 108 H 98-107 MMOL/L Carbon Dioxide Level 21 21-32 MMOL/L Anion Gap 10 5-14 MMOL/L Blood Urea Nitrogen 10 7-18 MG/DL Creatinine 0.74 0.60-1.30 MG/DL Estimat Glomerular Filtration Rate > 60 BUN/Creatinine Ratio 14 Glucose Level 115 H 70-105 MG/DL Calcium Level 9.3 8.5-10.1 MG/DL My Orders Orders - PAUL MCQUEEN SENIOR EMBEDDED SOFTWARE ENGINEER Cbc With Automated Diff (08/08/16 10:53) Ua Culture If Indicated (08/08/16 10:53) Saline Lock/Iv-Start (08/08/16 10:53) Ct Abdomen/Pelvis W (08/08/16 10:53) Basic Metabolic Panel (08/08/16 10:53) Iohexol Injection (Omnipaque 350 Mg/Ml 1 (08/08/16 11:30) Ns (Ivpb) (Sodium Chloride 0.9% Ivpb Bag (08/08/16 11:30) Medications Given in ED Current Medications Medications Dose Ordered Sig/Destiny Route Start Time Stop Time Status Last Admin Dose Admin Iohexol 100 ml ONCE ONCE IV 08/08/16 11:30 08/08/16 11:31 DC 08/08/16 11:40 100 ML Sodium Chloride 100 ml ONCE ONCE IV 08/08/16 11:30 08/08/16 11:31 DC 08/08/16 11:40 80 ML Vital Signs/I&O Vital Sign - Last 12Hours 08/08/16 10:57 Temp 98.3 Pulse 84 Resp 16 B/P (MAP) 144/93 Pulse Ox 98 Diagnostic Imaging Diagonstic Imaging: CT Comments NAME: MIKEL SELF [facility] REC#: [id number] PT STATUS: REG [facility] [place] : 1940 PHYSICIAN: PAUL MCQUEEN APRN ADMIT DATE: 08/08/16/[facility] [place] Draft Date of Exam:08/08/16 CT ABDOMEN/PELVIS W PROCEDURE: CT abdomen and pelvis with contrast. TECHNIQUE: Multiple contiguous axial images were obtained through the abdomen and pelvis after administration of intravenous contrast. INDICATION: Hernia. 100 mL of Omnipaque 350 is administered intravenously. COMPARISON: 01/23/2016 exam. FINDINGS: The lung bases demonstrate mild scarring. The liver demonstrate multiple cysts up to 5 cm in size in the left hepatic lobe without significant change from the previous exam. There is also a hyper enhancing lesion in the right hepatic lobe that becomes isodense to the rest of the liver on delayed phase imaging presumably related to a flash filling hemangioma. Similar to prior exams 06/22/2011 demonstrate a hint of this lesion. The variable visibility is probably related to phase of contrast and not necessarily related to a true change. The gallbladder demonstrates no stones or evidence of cholecystitis. The spleen is not enlarged. The pancreas and the right adrenal gland appear unremarkable. The left adrenal gland demonstrate nodular thickening. 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 The abdominal aorta is normal in caliber. No para-aortic significantly enlarged lymph node is seen. The kidneys have symmetric enhancement and contrast excretion with no hydronephrosis. The urinary bladder appears unremarkable. There is no significant free fluid or fluid collection in the abdomen or pelvis. The prostate is upper limits of normal in size. There is a relatively large direct inguinal hernia with defect medial to the inferior epigastric vessels. It is associated with colonic contents. The hernia sac size is 8.5 x 6.7 CM and the defect is estimated to be at 4.4 x 4 CM. The hernia sac projects towards the left scrotum. There is a fat-containing small direct inguinal hernia on the right side. There is no bowel obstruction. There is fluid and fatty stranding in the hernia. The colon is involved with diverticulosis. Diverticulitis is a possibility although strangulation cannot be ruled out. There is no abscess. There are presumably reactive minimally prominent lymph nodes in the sigmoid mesocolon up to 9 mm in size. The osseous structures demonstrate prominent degenerative changes in the spine and hip joints. IMPRESSION: 1. There is a relatively large left inguinal hernia. Although it appears to have an extension towards the scrotum mimicking an indirect hernia, the defect is medial to the left inferior epigastric artery which is consistent with a direct hernia. 2. The hernia contains a loop of the sigmoid colon which demonstrates findings that may suggest diverticulitis incidentally involving the hernia. The CT findings could however overlap with hernia strangulation. Correlate clinically. 3. Nonspecific minimally prominent lymph nodes up to 9 mm seen in the sigmoid mesocolon. Findings were discussed with Paul HENDRICKS by Dr. Gonzalez at time of dictation. Dictated on workstation # [id number] Dict: 08/08/16 1200 Trans: 08/08/16 1245 [facility] [id number] Interpreted by: ALEKS GONZALEZ MD Electronically signed by: Departure Communication Progress Notes 1229- discussed case with Dr. Mcdonald. He has seen the patient and plans to go to the operating room. Impression Impression: Primary Impression: Incarcerated left inguinal hernia Disposition: ADMITTED INPATIENT Condition: Stable Decision to Admit Reason: Admit from ER (General) Decision to Admit/Date: Aug 08, 2016 Time/Decision to Admit Time: 12:29 Departure-Patient Inst. Referrals: BRYANT WAGENR MD (PCP/Family) Primary Care Physician Copy Copies To 1: BRYANT WAGNER MD, PETER J APRN Aug 08, 2016 10:56
[2016-08-08 11:03] LABS: BASOPHILS # (AUTO) 0.1 10^3/uL (0.0-0.1); BASOPHILS % (AUTO) 1 % (0-10); EOSINOPHILS # (AUTO) 0.4 10^3/uL (0.0-0.3); EOSINOPHILS % (AUTO) 4 % (0-10); LYMPHOCYTES # (AUTO) 1.9 X 10^3 (1.0-4.0); LYMPHOCYTES % (AUTO) 18 % (12-44); MEAN CORPUSCULAR HEMOGLOBIN 30 PG (25-34); MEAN CORPUSCULAR HGB CONC 33 G/DL (32-36); MEAN CORPUSCULAR VOLUME 91 FL (80-99); MEAN PLATELET VOLUME 9.3 FL (7.4-10.4); MONOCYTES # (AUTO) 1.3 X 10^3 (0.0-1.0); MONOCYTES % (AUTO) 12 % (0-12); NEUTROPHILS % (AUTO) 66 % (42-75); PLATELET COUNT 252 10^3/uL (130-400); RED BLOOD COUNT 4.81 10^6/uL (4.35-5.85); RED CELL DISTRIBUTION WIDTH 14.9 % (10.0-14.5); WHITE BLOOD COUNT 10.6 10^3/uL (4.3-11.0)
[2016-08-08 11:17] LABS: ANION GAP 10 MMOL/L (5-14); BLOOD UREA NITROGEN 10 MG/DL (7-18); BUN/CREATININE RATIO 14; CALCIUM 9.3 MG/DL (8.5-10.1); CARBON DIOXIDE 21 MMOL/L (21-32); CHLORIDE 108 MMOL/L (98-107); CREATININE SERUM 0.74 MG/DL (0.60-1.30); GFR ESTIMATED > 60; GLUCOSE 115 MG/DL (70-105); POTASSIUM 4.2 MMOL/L (3.6-5.0); SODIUM 139 MMOL/L (135-145)
[2016-08-08] MEDS ORDERED: IOHEXOL 350 MG/ML 100 ML (OMNIPAQUE 350) VIAL IV ONE (11:30)
[2016-08-08] MEDS ORDERED: NS 100 ML (IVPB) BAG IV ONE (11:30)
[2016-08-08] MEDS ORDERED: ONDANSETRON 4 MG/2 ML (SDV) Z0FRAN ONE (12:34)
[2016-08-08] MEDS ORDERED: LIDOCAINE PF 0.5% 50 ML (XYLOCAINE) VIAL ONE (12:34)
[2016-08-08] MEDS ORDERED: DEXAMETHASONE PF 10 MG/ML (DECADRON) VIAL ONE (12:34)
[2016-08-08] MEDS ORDERED: LACTATED RINGERS 1,000 ML IV ONE ×2 (12:34→14:20)
[2016-08-08] MEDS ORDERED: proPOfol 200 MG/20 ML (DIPRIVAN) VIAL IV ONE (12:34)
[2016-08-08] MEDS ORDERED: SEVOFLURANE (ULTANE) 15 ML INHAL SOLN ONE ×5 (12:34→14:20)
[2016-08-08] MEDS ORDERED: fentaNYL INJECTION 100 MCG/2 ML AMP ONE ×2 (12:35→13:50)
[2016-08-08] MEDS ORDERED: LIDOCAINE/EPI 1%-1:200,000 (XYLOCAINE) 30 ML VIAL ONE (12:37)
--- OUTSIDE RECORDS SUMMARY | 2016-08-08 12:37 | XMS REPORT | Continuity of Care Document ---
Author Author [facility] Organization [facility] Address Unknown Phone Unavailable Allergies Active Description Code Type Severity Reaction Onset Reported/Identified Relationship to Patient Clinical Status Yes NKDA NKDA Mild N/A 11/13/2008 Yes No Known Drug Allergies [id number] Drug Allergy Unknown N/ A 02/24/2014 Medications [...] INTRACTABLE 06/26/2011 Ot 414.01 CORONARY ATHEROSCLEROSIS OF [place] CORON 06/26/2011 Ot 458.9 HYPOTENSION NOS 06/26/2011 [...] NOS 06/28/2011 Ot 414.01 CORONARY ATHEROSCLEROSIS OF [place] CORON 06/28/2011 Ot 438.7 DISTURBANCES OF VISION [...] ESTES MD Ot 414.01 CORONARY ATHEROSCLEROSIS OF [place] CORON 06/12/2012 KALPANA ESTES MD Ot 438.89 [...] KALPANA ESTES MD Ot 311 02/23/2014 KALPANA ESTES MD Ot 345.90 02/23/2014 KALPANA ESTES MD [...] KALPANA J Ot V45.82 02/23/2014 MEERA BROWN, KAPLANA J Ot V45.89 02/23/2014 MEERA BROWN, KALPANA [...] ESTES MD Ot 414.01 CORONARY ATHEROSCLEROSIS OF [place] CORON 02/24/2014 KALPANA ESTES MD Ot 496 [...] MASS INDEX 31.0-31.9, ADULT 07/17/2014 PAUL MCQUEEN ADVERTISING DIRECTOR Ot 780.79 OTH MALAISE FATIGUE 07/17/2014 PAUL MCQUEEN ADVERTISING DIRECTOR Ot 787.01 NAUSEA WITH VOMITING 08/02/2014 KALPANA ESTES MD Ot 345.90 08/02/2014 KALPANA ESTES MD [...] 02/12/2015 KESHAV DERAS MD Ot R56.9 02/12/2015 KESHAV DERAS MD Ot R94.31 02/14/2015 KESHAV [...] MD Ot I25.10 ATHSCL HEART DISEASE OF [place] CORONARY 02/14/2015 KESHAV DERAS MD Ot 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 02/14/2015 KESHAV DERAS MD Ot I69.398 OTHER SEQUELAE OF CEREBRAL INFARCTION 02/14/2015 KESHAV DERAS MD Ot I70.201 UNSP ATHSCL [place] ARTERIES OF [facility] 02/14/2015 KESHAV DERAS MD Ot R94.39 ABNORMAL RESULT OF OTHER CARDIOVASCULAR 02/14/2015 KESHAV DERAS MD Ot Z79.899 OTHER USP (CURRENT) DRUG THERAPY 02/14/2015 KESHAV DERAS MD [...] 433.10 03/20/2015 Ot 434.91 03/20/2015 MEERA BROWN, [facility] Ot 550.90 03/20/2015 MEERA BROWN, [facility] Ot 562.10 03/20/2015 MEERA BROWN, [facility] Ot 780.93 03/20/2015 MEERA BROWN, [facility] Ot 786.2 03/20/2015 MEERA BROWN, [facility] Ot 345.90 03/20/2015 MEERA BROWN, [facility] Ot 780.79 03/20/2015 MEERA BROWN, [facility] Ot 959.01 03/20/2015 MEERA BROWN, [facility] Ot E849.0 03/20/2015 MEERA BROWN, [facility] Ot E888.9 03/20/2015 MEERA BROWN, [facility] Ot R06.00 03/20/2015 MEERA BROWN, [facility] Ot R10.11 03/20/2015 EMERA BROWN, [facility] Ot R11.0 03/20/2015 MEERA BROWN, KALPANA J Ot R12 03/20/2015 MEERA BROWN, [facility] Ot R53.1 03/20/2015 BRAEDEN BROWN, KESHAV Mcdermott [...] F03.90 UNSPECIFIED DEMENTIA 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L 07/08/2015 SUNNI JENNINGS DO Ot G40.909 EPILEPSY, UNSP, NOT INTRACTABLE, WITHOUT 07/08/2015 SUNNI JENNINGS DO Ot I10 ESSENTIAL (PRIMARY) HYPERTENSION 07/08/2015 SUNNI JENNINGS DO Ot I25.10 ATHSCL HEART DISEASE OF [place] CORONARY 07/08/2015 SUNNI JENNINGS DO Ot R40.0 [...] Ot R10.11 RIGHT UPPER QUADRANT PAIN 01/23/2016 AKLPANA ESTES MD Ot R11.0 NAUSEA 01/23/2016 KALPANA [...] Ot R06.02 SHORTNESS OF BREATH 01/29/2016 BRYANT WAGNER MD Ot A41.9 SEPSIS, UNSPECIFIED ORGANISM 01/29/2016 [...] MD Ot I25.10 ATHSCL HEART DISEASE OF [place] CORONARY 01/29/2016 BRYANT WAGNER MD Ot I50.9 [...] Z95.5 PRESENCE OF CORONARY ANGIOPLASTY IMPLANT 01/29/2016 BRYANT WAGNER MD Ot Z99.81 DEPENDENCE ON SUPPLEMENTAL OXYGEN 03/04/2016 SANTOSH KINSEY APRN Ot R06.02 SHORTNESS OF BREATH 03/04/2016 SANTOSH KINSEY APRN Ot R06.02 SHORTNESS OF BREATH 04/02/2016 SANTOSH KINSEY APRN Ot R06.02 SHORTNESS OF BREATH 04/10/2016 SANTOSH KINSEY APRN Ot R06.02 SHORTNESS OF BREATH 06/01/2016 SANTOSH KISNEY APRN Ot R06.02 SHORTNESS OF BREATH Procedures Code Description Performed By Performed On 81.92 INJECTION INTO JOINT 06/25/2011 99.23 INJECT STEROID 03.31 SPINAL TAP 2014 Encounters ACCT No. Visit Date/Time Discharge Status Pt. Type Provider Facility Loc./Unit Complaint [id number] 05/06/2016 09:00:00 2016 00:01:00 DIS Outpatient SANTOSH KINSEY APRN [facility] PULM DYSPNEA [id number] 01/23/2016 21:05:00 2015 16:15:00 DIS Inpatient BRYANT WAGNER MD [facility] 4TH SEPSIS, COLITIS, URINARY OBSTRUCTION, [id number] 07/07/2015 04:35:00 2015 12:46:00 DIS Inpatient SUNNI JENNINGS DO [facility] 4TH DILANTIN TOXICITY [id number] 03/19/2015 19:40:00 2015 06:45:00 DIS Outpatient GRISELDA RAMIREZ DO [facility] SLEEP SNORING, EXCESSIVE DAYTIME SLEEPINESS [id number] 02/14/2015 06:55:00 2015 13:40:00 DIS Outpatient KESHAV DERAS MD [facility] CATH ABNORMAL STRESS TEST,CAD,HTN,HLP,SOB [id number] 12/13/2014 09:26:00 2014 23:59:59 CLS Outpatient KALPANA ESTES MD [facility] RAD NAUSEA,ABD PAIN,HEART BURN [id number] 07/17/2014 18:12:00 2014 20:51:00 DIS Emergency PAUL MCQUEEN APRN [facility] ER NAUSEA/VOMITING [id number] 07/13/2014 07:30:00 2014 23:59:59 CLS Outpatient KALPANA ESTES MD [facility] RAD RECENT HEAD TRAUMA [id number] 02/20/2014 18:45:00 2014 11:05:00 DIS Inpatient KALPANA ESTES MD [facility] 4TH ALTERED MENTAL STATUS;SEIZURE DISORDER [id number] 11/16/2013 13:43:00 2013 17:44:00 DIS Emergency SREEDHAR BROWN, CLIFF A [facility] ER SOA/RIGHT RIB PAIN [id number] 06/14/2013 07:24:00 2013 23:59:59 CLS Outpatient KALPANA ESTES MD [facility] RAD STOMACH DISCOMFORT, CHONIC COUGH, HX OF CVA [id number] 06/08/2012 13:03:00 2012 12:42:00 DIS Inpatient KALPANA ESTES MD [facility] 4TH PNEUMONIA,SEIZURE [id number] 08/08/2016 11:12:00 Document Registration [id number] 06/02/2016 15:00:00 PEN Preadmit SANTOSH KINSEY APRN [facility] PULM DYSPNEA [id number] 09/12/2015 12:52:00 ACT Outpatient GRISELDA RAMIREZ DO [facility] RT DYSPNEA [id number] 01/22/2015 07:45:00 ACT Outpatient KESHAV DEARS MD [facility] CARD CVA,ABNORMAL EKG,HTN,SEIZURE, DYSPNEA [id number] 01/12/2015 13:50:00 ACT Outpatient KESHAV DERAS MD [facility] RAD CVA,ABNORMAL EKG,DYSPNEA,HTN,SEIZURE [id number] 04/12/2012 08:56:00 Document Registration [id number] 06/26/2011 10:30:00 Document Registration [id number] 06/22/2011 16:35:00 Document Registration [id number] 03/20/2011 09:04:00 Document Registration [id number] 01/13/2011 14:29:00 Document Registration [id number] 01/01/2011 13:44:00 Document Registration [id number] 11/20/2010 18:14:00 Document Registration [id number] 11/20/2010 13:43:00 Document Registration [id number] 11/20/2010 10:18:00 Document Registration [id number] 10/01/2010 12:53:00 Document Registration [id number] 01/15/2010 09:44:00 Document Registration [id number] 11/14/2009 09:15:00 Document Registration [id number] 11/13/2009 09:28:00 Document Registration [id number] 11/09/2009 09:49:00 Document Registration
[2016-08-08] MEDS ORDERED: MIDAZOLAM 2 MG/2 ML (VERSED) VIAL ONE (12:39)
--- NOTE | 2016-08-08 12:42 | History & Physical-Surgical ---
History of Present Illness History of Present Illness Reason for visit/HPI Surgery asked to see pt to rule out strangulate Left inguinal hernia HPI: Pt is a 76yo male who presents to ER with reports of a new onset bulge in left groin. He states that he was on the toilet yesterday when he felt something bulge out in his left groin and it was a very painful burning sensation. Since then he's had a persistent bulge left side of the groin and is concerned that he may have a strain related hernia. He's not been passing any gas since yesterday. Denies nausea or vomiting or fevers. He states no pain unless he moves, then it is "bad"....maybe 7 out of 10. Timing/Duration: 12-24 Hours Severity/Quality: Moderate Location: [facility] Radiation: No Radiation Associated Symptoms: Denies Symptoms CT read by radiologist as incarcerated, worrisome for strangulated bowel. Date of Admission 08/08/16 Time Seen by Provider: 12:17 I consulted on this patient on 08/08/16 12:17 Attending Physician Johnnie Keating DO Admitting Physician Consult Allergies and Home Medications Allergies Coded Allergies: No Known Drug Allergies (Unverified , 02/24/14) Home Medications Acetaminophen 500 Mg Tablet, 500-1,000 MG PO HS PRN for PAIN, (Reported) Amoxicillin/Potassium Clav 1 Each Tablet, 875 MG PO BID WITH MEALS, #14 Prescribed by: BRYANT WAGNER on 01/29/16 1224 Aspirin 81 Mg Tab.chew, 81 MG PO DAILY, (Reported) Atorvastatin Calcium 20 Mg Tablet, 20 MG PO DAILY, (Reported) Docusate Sodium 100 Mg Cap, 100 MG PO HS, (Reported) Levetiracetam 500 Mg Tablet, 500 MG PO DAILY, (Reported) Losartan Potassium 100 Mg Tablet, 100 MG PO DAILY, (Reported) Magnesium Oxide 400 Mg Tablet, 400 MG PO BID, #30 Prescribed by: BRYANT WAGNER on 01/29/16 1224 Multivitamin W-Minerals/Lutein 1 Each Tablet, 1 TAB PO HS, (Reported) [place] 3 Polyunsat Fatty Acids 1,000 Mg Cap, 1,000 MG PO HS, (Reported) Ondansetron 4 Mg Tab.rapdis, 4 MG PO Q8H PRN for NAUSEA, #30 Ref 1 Prescribed by: BRYANT WAGNER on 01/29/16 1224 Phenytoin Sodium Extended 100 Mg Capsule, 200 MG PO BID, (Reported) TAKES 2 (100MG) CAPSULES Ranitidine HCl 150 Mg Tablet, 150 MG PO DAILY PRN for HEARTBURN, (Reported) Sertraline HCl 100 Mg Tablet, 100 MG PO DAILY, (Reported) Tamsulosin HCl 0.4 Mg Cap, 0.4 MG PO DAILY, #30 Ref 5 Prescribed by: BRYANT WAGNER on 01/29/16 1224 Past Dxwpewu-Lqpzpc-Bixrko Hx Patient Social History Alcohol Use: Denies Use Recreational Drug Use: No Smoking Status: Never a Smoker Former Smoker/When Quit: Feb 14, 2011 Type Used: Pipe Recent Foreign Travel: No Contact w/Someone Who Travel: No Recent Infectious Disease Expo: No Recent Hopitalizations: Yes Immunizations Up To Date Tetanus Booster (TDap): Unknown PED Vaccines UTD: No Date of Pneumonia Vaccine: June 10, 2012 Seasonal Allergies Seasonal Allergies: No Surgeries HX Surgeries: Yes (BOOP-LUNG SURGERY, CATARACTS, DETACHED RETINA) Surgeries: Coronary Stent, Eye Surgery, Tonsillectomy Respiratory Hx Respiratory Disorders: Yes Cardiovascular Hx Cardiac Disorders: Yes (STENT) Cardiac Disorders: Coronary Artery Disease, Hypertension Neurological Hx Neurological Disorders: Yes Neurological Disorders: Dementia, Seizure Disorder, Stroke Reproductive System Hx Reproductive Disorders: No Sexually Transmitted Disease: No HIV/AIDS: No Genitourinary Hx Genitourinary Disorders: Yes (pt admits to trouble urinating for years) Gastrointestinal Hx Gastrointestinal Disorders: No Musculoskeletal Hx Musculoskeletal Disorders: No Endocrine Hx Endocrine Disorders: No HEENT HX ENT Disorders: Yes (DETACHED RETINA HX, vision deficits from stroke) HEENT Disorders: Cataract Hearing Impairment: Bilateral Hearing Aide Cancer Hx Cancer: No Psychosocial Hx Psychiatric Problems: Yes Behavioral Health Disorders: Depression Integumentary HX Skin/Integumentary Disorder: Yes Skin/Integumentary Disorders: Psoriasis Blood Transfusions Hx Blood Disorders: No Adverse Reaction to a Blood Tr: No Family Medical History Significant Family History: CAD Over 55 Years Old (brother and father) Family Medial History: Cardiovascular disease 19 FATHER, Onset:Unknown Cataracts 19 MOTHER, Onset:Unknown FH: stomach cancer 19 MOTHER, Onset:Unknown Glaucoma 19 MOTHER, Onset:Unknown Constitutional: No chills, No diaphoresis, No fever, No weight loss EENTM: hearing loss, vision loss, No blurred vision, No throat pain, No throat swelling Respiratory: No cough, No dyspnea on exertion, No hemoptysis, No phlegm Cardiovascular: No chest pain, No edema, No palpitations Gastrointestinal: abdominal pain, constipation, No diarrhea, No hematemesis Genitourinary: No dysuria, frequency, hesitancy Musculoskeletal: back pain, joint pain, muscle stiffness Skin: No change in color, No change in hair/nails Psychiatric/Neurological: Pre-Existing Deficit, Seizure, Tremors Other pt denies any abnormal bleeding or bruising, no swollen lymph nodes, no heat or cold intolerance Physical Exam Vital Signs Vital Sign - Last 12Hours 08/08/16 10:57 Temp 98.3 Pulse 84 Resp 16 B/P (MAP) 144/93 Pulse Ox 98 Capillary Refill : Less Than 3 Seconds General Appearance: No Apparent Distress, WD/WN Eyes: Bilateral Eye EOMI, Bilateral Eye PERRL HEENT: Pharynx Normal, No Scleral Icterus (L), No Scleral Icterus (R), No Tonsillar Exudate, Other (hard of hearing) Neck: Supple, No Thyromegaly Respiratory: Chest Non Tender, Lungs Clear, Normal Breath Sounds, No Accessory Muscle Use, No Respiratory Distress Cardiovascular: Regular Rate, Rhythm, No Edema, No Murmur Gastrointestinal: No Organomegaly, Abnormal Bowel Sounds (decreased), No Distended, No Guarding, Hernia (Large left inguinal -incarcerated, not reducible per ER physician), No Rebound Rectal: Deferred Back: No CVA Tenderness, No Vertebral Tenderness Extremity: Normal Capillary Refill, No Calf Tenderness, No Pedal Edema Neurologic/Psychiatric: Alert, Oriented x3, No Facial Droop, Other (tremor in right arm and leg) Skin: Normal Color, Warm/Dry Lymphatic: No Adenopathy (neck, axilla or groin) Data Review Labs Laboratory Tests 08/08/16 10:53: White Blood Count 10.6, Red Blood Count 4.81, Hemoglobin 14.3, Hematocrit 44, Mean Corpuscular Volume 91, Mean Corpuscular Hemoglobin 30, Mean Corpuscular Hemoglobin Concent 33, Red Cell Distribution Width 14.9H, Platelet Count 252, Mean Platelet Volume 9.3, Neutrophils (%) (Auto) 66, Lymphocytes (%) (Auto) 18, Monocytes (%) (Auto) 12, Eosinophils (%) (Auto) 4, Basophils (%) (Auto) 1, Neutrophils # (Auto) 7.0, Lymphocytes # (Auto) 1.9, Monocytes # (Auto) 1.3H, Eosinophils # (Auto) 0.4H, Basophils # (Auto) 0.1, Sodium Level 139, Potassium Level 4.2, Chloride Level 108H, Carbon Dioxide Level 21, Anion Gap 10, Blood Urea Nitrogen 10, Creatinine 0.74, Estimat Glomerular Filtration Rate > 60, BUN/ Creatinine Ratio 14, Glucose Level 115H, Calcium Level 9.3 Assessment/Plan Assessment/Plan Assessment/Plan Incarcerated LIH possible strangulated Dementia CAD, HTN, Hx of Stroke Plan is NPO, IV fluids, IV ABX just prior to OR, Pain control. Open Inguinal Herniarraphy, possible mesh placement, possible bowel resection. Discussed risks and complications with pt and his son; including but not limited to pain, bleeding, infection, scar, damage to intestine, possible GA and need for admission. Pt will most likely go home unless he needs bowel resection, then will be admitted. All questions answered to their satisfaction. JOHNNIE KEATING DO Aug 08, 2016 12:42
[2016-08-08] MEDS ORDERED: ceFAZolin 2 GM/50 ML NS 50 ML IV ONE (12:45)
--- NOTE | 2016-08-08 12:46 | Diagnostic Imaging Report ---
PROCEDURE: CT abdomen and pelvis with contrast. TECHNIQUE: Multiple contiguous axial images were obtained through the abdomen and pelvis after administration of intravenous contrast. INDICATION: Hernia. 100 mL of Omnipaque 350 is administered intravenously. COMPARISON: 01/23/2016 exam. FINDINGS: The lung bases demonstrate mild scarring. The liver demonstrate multiple cysts up to 5 cm in size in the left hepatic lobe without significant change from the previous exam. There is also a hyper enhancing lesion in the right hepatic lobe that becomes isodense to the rest of the liver on delayed phase imaging presumably related to a flash filling hemangioma. Similar to prior exams 06/22/2011 demonstrate a hint of this lesion. The variable visibility is probably related to phase of contrast and not necessarily related to a true change. The gallbladder demonstrates no stones or evidence of cholecystitis. The spleen is not enlarged. The pancreas and the right adrenal gland appear unremarkable. The left adrenal gland demonstrate nodular thickening. 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 The abdominal aorta is normal in caliber. No para-aortic significantly enlarged lymph node is seen. The kidneys have symmetric enhancement and contrast excretion with no hydronephrosis. The urinary bladder appears unremarkable. There is no significant free fluid or fluid collection in the abdomen or pelvis. The prostate is upper limits of normal in size. There is a relatively large direct inguinal hernia with defect medial to the inferior epigastric vessels. It is associated with colonic contents. The hernia sac size is 8.5 x 6.7 CM and the defect is estimated to be at 4.4 x 4 CM. The hernia sac projects towards the left scrotum. There is a fat-containing small direct inguinal hernia on the right side. There is no bowel obstruction. There is fluid and fatty stranding in the hernia. The colon is involved with diverticulosis. Diverticulitis is a possibility although strangulation cannot be ruled out. There is no abscess. There are presumably reactive minimally prominent lymph nodes in the sigmoid mesocolon up to 9 mm in size. The osseous structures demonstrate prominent degenerative changes in the spine and hip joints. IMPRESSION: 1. There is a relatively large left inguinal hernia. Although it appears to have an extension towards the scrotum mimicking an indirect hernia, the defect is medial to the left inferior epigastric artery which is consistent with a direct hernia. 2. The hernia contains a loop of the sigmoid colon which demonstrates findings that may suggest diverticulitis incidentally involving the hernia. The CT findings could however overlap with hernia strangulation. Correlate clinically. 3. Nonspecific minimally prominent lymph nodes up to 9 mm seen in the sigmoid mesocolon. Findings were discussed with ER PARobi by Dr. Gonzalez at time of dictation. Dictated by: Dictated on workstation # [id number]
[2016-08-08] MEDS: LACTATED RINGERS 1,000 ML IV PRN ×2 (13:35→14:10)
[2016-08-08] MEDS ORDERED: ceFAZolin 1,000 MG (ANCEF) VIAL ONE (13:39)
[2016-08-08] MEDS ORDERED: ceFAZolin 1,000 MG (ANCEF) VIAL IV ONE (14:00)
[2016-08-08] MEDS ORDERED: GLYCOPYRROLATE 0.2 MG/ML (ROBINUL) 2 ML VIAL ONE (14:20)
[2016-08-08] MEDS ORDERED: NEOSTIGMINE (BLOXIVERZ ) 1 MG/1ML 10 ML VIAL ONE (14:20)
--- NOTE | 2016-08-08 14:33 | Progress Note-Post Operative ---
Post-Operative Progess Note Surgeon (s)/Lap Winding Machine Operator (s) Surgeon RACHEL KEATING DO Lap Winding Machine Operator: Jitendra Pre-Operative Diagnosis Incarcerated LIH possible strangulation Post-Operative Diagnosis Incarcerated LIH with sigmoid colon, no strangulation Procedure & Operative Findings Date of Procedure 08/08/16 Procedure Performed/Findings LIH with mesh Excision cord lipoma Anesthesia Type GET Estimated Blood Loss Estimated blood loss (mL): less than 5ml Specimens/Packing Specimens Removed cord lipoma indirect hernia sac direct hernia sac RACHEL KEATING DO Aug 08, 2016 14:33
[2016-08-08] MEDS ORDERED: HYDR-3812 PO (14:34)
--- NOTE | 2016-08-08 14:36 | Discharge Inst-Surgical ---
Discharge Inst-Surgical Depart Medication/Instructions New, Converted or Re-Newed RX: RX Given to Pt/Family Patient Instructions Follow up Appt: Make appointment for 1 week. [phone] Instructions: No lifting greater than 10 pounds. No strenuous activity. May shower in 24 hours, no tub bath or soaking. Use incentive spirometer at home as directed. No Smoking Skin/Wound Care: May remove bandages in am. Dermabond will fall off on its own. Symptoms to Report: Appetite Changes, Extremity Discoloration, Numbness/Tingling, Swelling Increased , Bleeding Excessive, Eyesight Changes, Pain Increased, Urine Color Change, Constipation(Persistent), Fever over 101 degree F, Pain/Pressure in chest, Urinating Difficulty, Cough Up/Vomit Blood, Heart Beat Irreg/Pounding, Pain/ Pressure in jaw, Vaginal Bleeding Increase, Cramps in feet or legs, Lightheadedness, Pain/Pressure in shoulder, Diarrhea(Persistent), Memory Changes Suddenly, Questions/Concerns, Weight gain consecutive days, Dizziness/ Fainting, Nausea/Vomiting, Shortness of Breath, Weight gain over 2 pounds If questions or concerns contact your physician Or seek help at emergency department. Activity Activity Instructions: Avoid Stress to Incision Driving Instructions: No Driving/Refer to Diet Discharge Diet: No Restrictions Diet After 24 Hours: Clear Liquid if Nauseous If Any Problems/Questions/Issu: Contact Your Physician, Go to Emergency Room Skin/Wound Care Infection Signs and Symptoms: Increased Redness, Foul Odor of Wound, Increased Drainage, Skin Itchy or Has a Rash, Increased Swelling, Temperature Above 101 F Bathing Instructions: Shower Stitches/Karl/Dermabond Dis: Dermabond Ice Pack: Ice On and Off Site RACHEL KEATING DO Aug 08, 2016 14:36
[2016-08-08] MEDS ORDERED: ONDANSETRON 4 MG/2 ML (SDV) Z0FRAN IVP PRN (14:45)
[2016-08-08] MEDS ORDERED: morphine INJ 10 MG/ML 1ML (SYR OR VIAL) IVP PRN (14:45)
[2016-08-08 15:40] VITALS: BP 160/101
[2016-08-08 16:10] VITALS: BP 161/93
[2016-08-08 16:40] VITALS: BP 156/91
--- NOTE | 2016-08-09 17:08 | OPERATIVE REPORT ---
PROCEDURE PHYSICIAN: RACHEL ZHU DATE OF PROCEDURE: 08/08/2016 PREOPERATIVE DIAGNOSIS: Left inguinal hernia incarcerated, possible strangulated. POSTOPERATIVE DIAGNOSIS: 1. Left inguinal hernia incarcerated direct, large direct hernia with also an indirect sac. 2. Cord lipoma. SURGEON: Dr. Zhu TECHNICIAN BIOLOGICAL HEALTH: Dr. Ham. ANESTHESIA: General endotracheal tube. SPECIMEN: 1. Cord lipoma. 2. Indirect hernia sac. 3. Direct hernia sac. BLOOD LOSS: Scant. FLUIDS: Per anesthesia. POSTOPERATIVE: Stable. INDICATION FOR THE PROCEDURE: The patient is a 76-year-old male who came in with complaint of pain in the left inguinal region with a bulge. It is new onset of the last [address] showed incarcerated bowel with fluid and air worrisome for strangulation. FINDINGS: The patient had an incarcerated, what looked like sigmoid colon, did have some fluid in there. The color was a little bit dusky but pinked up once removed from the hernia and easily, pushed back up into the abdomen. PROCEDURE NOTE: After informed consent was obtained the patient brought to the operating room, placed on in the supine position. He was sterilely prepped and draped in the normal fashion. Local lidocaine used for perform ilioinguinal nerve block as well as pubic tubercle block and infiltrated the left inguinal region with local, then made an incision with a number 10 blade, carried down through skin to the subcutaneous tissue. The deepened down to the subcutaneous tissue with Bovie electrocautery down to the fascia of the external oblique ____ fashion then infiltrated with local and incised through the external inguinal ring with Bovie electrocautery, very large hernia sac. Carefully dissected through the hernia sac, opened it up and then am able to get the omentum and then pull intestine distally out of the hernia sac. Little bit dusky but then pinked up and then able to easily push this back up into the abdomen without any difficulty. There was some fluid but was not purulent and did not look necrotic, mostly just serous. This large hernia sac was then carefully dissected off the cord and cord structures. It was very hard to tell whether this was indirect or direct. I elected to close this with 0 Vicryl pursestring suture to close this. It closed nicely and then tied another 0 Vicryl and then cut this hernia sac off and passed off the table. There was a cord lipoma that was in our way. This was removed and passed off table as well, removed with Bovie electrocautery and found another hernia sac but I am not sure if this was direct or indirect. It looked like part of the floor so it most likely was direct. I elected to close the floor of the inguinal canal to help give this some support. Close with 0 Vicryl, 3 [id number] sutures and one simple suture incorporating part of the previous sac and then tied this sac with 0 Vicryl, ligating it and then cut this off with Bovie electrocautery. The floor of the inguinal canal now looked good. Cord and cord structures looked good. At this point I elected to place a left-sided parietex mesh. Sutured this in place to the pubic tubercle and encircled the cord with a precut hole and placed the rest of it up under the external oblique fascia. Trimmed a little bit of the lateral edge and it laid in very nicely. Copiously irrigated with normal saline, suctioned this out and then at this point then closed the external oblique fascia there by recreating the external inguinal ring. The inguinal ring had been removed and closed the floor and with the mesh. I then closed the Janine's fascia with 3-0 Vicryl with 3 interrupted sutures then closed the skin with 4-0 undyed Monocryl in running subcuticular fashion. The area was cleaned and dried and dermabond placed as well as postop bandage. The patient was then transferred to recover room in stable condition. Sponge, instrument and needle count were correct at the end of the case. Dr. Ham assisted in this case. His help was necessary in identifying anatomy and holding structures out of the way. Job ID: [id number] Dictated Date: 08/08/2016 14:56:24 Sight Effects Specialist Date: 08/09/2016 16:10:02 / [email or web address]
== END 2016-08-08 16:53 | disposition home or self-care (01) ==
LOC: EDUNIT# 10:38 → ER 10:40 → SDC 12:32
PROVIDERS: ATTEND Surgery
DX: K40.30 Unilateral inguinal hernia, with obstruction, without gangrene, not specified as recurrent (principal); D17.6 Benign lipomatous neoplasm of spermatic cord; I25.10 Atherosclerotic heart disease of native coronary artery without angina pectoris; I10 Essential (primary) hypertension; F03.90 Unspecified dementia, unspecified severity, without behavioral disturbance, psychotic disturbance, mood disturbance, and anxiety; F32.9 Major depressive disorder, single episode, unspecified; G40.909 Epilepsy, unspecified, not intractable, without status epilepticus; Z95.5 Presence of coronary angioplasty implant and graft; Z79.899 Other long term (current) drug therapy
CPT/HCPCS: 36415; 74177; 80048; 85025; 94664

== ENCOUNTER 2016-08-09 22:10 | Inpatient (IN) | payer MEDICARE ==
[~2016-08-09] VITALS: Ht 180.3 cm; Wt 103.6 kg
[~2016-08-09 22:10] MED LIST changes: +HYDR-3812 PO
[2016-08-09] MEDS ORDERED: LIDOCAINE UROJET 2% GEL 10 ML PKG TOP ONE (22:30)
--- NOTE | 2016-08-09 22:31 | ED General ---
General Chief Complaint: Abdominal/GI Problems Stated Complaint: ABD PAIN Nursing Triage Note: pt was brought to room by wheelchair. pt had emergency hernia surgery yesterday and pt son states pt hasn't been the same since. Nursing Sepsis Screen: Possible Severe Sepsis Risk Source of Information: Patient Exam Limitations: No Limitations (RAVIN MCCRACKEN MD) History of Present Illness Time Seen by Provider: 22:15 Initial Comments Here today with report of not acting right, markedly increased weakness and inability to walk due to weakness. Patient has had difficulty this evening going to the bathroom. [place] like he had to go to the bathroom and with moderate assistance from the family was taken to the bathroom multiple times. During this times, he has been unable to urinate. He was seen here yesterday after having a spontaneous left inguinal hernia with concerns for incarceration. He did have operative procedure done yesterday to reduce the hernia as well as some other procedures. He was doing fine last night but since this afternoon has had steady decline with increasing weakness. Does complain of pain near the inguinal hernia site. Timing/Duration: 12 Hours, Getting Worse Severity: Moderate Associated Systoms: No Chest Pain, No Cough, Fever/Chills, No Headaches, No Nausea/Vomiting, No Shortness of Air, Weakness (RAVIN MCCRACKEN MD) Allergies and Home Medications Allergies Coded Allergies: No Known Drug Allergies (Unverified , 02/24/14) Home Medications Acetaminophen 500 Mg Tablet, 500-1,000 MG PO HS PRN for PAIN, (Reported) Amoxicillin/Potassium Clav 1 Each Tablet, 875 MG PO BID WITH MEALS, #14 Prescribed by: BRYANT WAGNER on 01/29/16 1224 Aspirin 81 Mg Tab.chew, 81 MG PO DAILY, (Reported) Atorvastatin Calcium 20 Mg Tablet, 20 MG PO DAILY, (Reported) Docusate Sodium 100 Mg Cap, 100 MG PO HS, (Reported) Hydrocodone/Acetaminophen 1 Each Tablet, 1 TAB PO Q8H PRN, #20 Ref 0 Prescribed by: RACHEL KEATING on 08/08/16 1434 Levetiracetam 500 Mg Tablet, 500 MG PO DAILY, (Reported) Losartan Potassium 100 Mg Tablet, 100 MG PO DAILY, (Reported) Magnesium Oxide 400 Mg Tablet, 400 MG PO BID, #30 Prescribed by: BRYANT WAGENR on 01/29/16 1224 Multivitamin W-Minerals/Lutein 1 Each Tablet, 1 TAB PO HS, (Reported) [employer] [place] 3 Polyunsat Fatty Acids 1,000 Mg Cap, 1,000 MG PO HS, (Reported) Ondansetron 4 Mg Tab.rapdis, 4 MG PO Q8H PRN for NAUSEA, #30 Ref 1 Prescribed by: BRYANT WAGNER on 01/29/16 1224 Phenytoin Sodium Extended 100 Mg Capsule, 200 MG PO BID, (Reported) TAKES 2 (100MG) CAPSULES Ranitidine HCl 150 Mg Tablet, 150 MG PO DAILY PRN for HEARTBURN, (Reported) Sertraline HCl 100 Mg Tablet, 100 MG PO DAILY, (Reported) Tamsulosin HCl 0.4 Mg Cap, 0.4 MG PO DAILY, #30 Ref 5 Prescribed by: BRYANT WAGNER on 01/29/16 1224 Constitutional: see HPI, chills, No fever, weakness EENTM: no symptoms reported Respiratory: no symptoms reported, No cough, No short of breath Cardiovascular: No chest pain, No edema Gastrointestinal: abdominal pain (LLQ), No nausea, No vomiting Genitourinary: see HPI, decreased output, frequency, hesitancy Musculoskeletal: no symptoms reported Skin: no symptoms reported (RAVIN MCCRACKEN MD) All Other Systems Reviewed Negative Unless Noted: Yes (RAVIN MCCRACKEN MD) Past Loplsun-Jkavly-Lcobrz Hx Patient Social History Alcohol Use: Denies Use Recreational Drug Use: No Smoking Status: Former Smoker Type Used: Pipe Former Smoker/When Quit: Feb 14, 2011 Recent Foreign Travel: No Contact w/Someone Who Travel: No Recent Infectious Disease Expo: No Recent Hopitalizations: Yes (RAVIN MCCRACKEN MD) Immunizations Up To Date Tetanus Booster (TDap): Unknown PED Vaccines UTD: No Date of Pneumonia Vaccine: June 10, 2012 (RAVIN MCCRACKEN MD) Seasonal Allergies Seasonal Allergies: No (RAVIN MCCRACKEN MD) Surgeries HX Surgeries: Yes (BOOP-LUNG SURGERY, CATARACTS, DETACHED RETINA) Surgeries: Coronary Stent, Eye Surgery, Tonsillectomy (RAVIN MCCRACKEN MD) Respiratory Hx Respiratory Disorders: Yes (RAVIN MCCRACKEN MD) Cardiovascular Hx Cardiac Disorders: Yes (STENT) Cardiac Disorders: Coronary Artery Disease, Hypertension (RAVIN MCCRACKEN MD) Neurological Hx Neurological Disorders: Yes Neurological Disorders: Dementia, Seizure Disorder, Stroke (RAVIN MCCRACKEN MD) Reproductive System Hx Reproductive Disorders: No Sexually Transmitted Disease: No HIV/AIDS: No (RAVIN MCCRACKEN MD) Genitourinary Hx Genitourinary Disorders: Yes (pt admits to trouble urinating for years) (RAVIN MCCRACKEN MD) Gastrointestinal Hx Gastrointestinal Disorders: No (RAVIN MCCRACKEN MD) Musculoskeletal Hx Musculoskeletal Disorders: No (RAVIN MCCRACKEN MD) Endocrine Hx Endocrine Disorders: No (RAVIN MCCRACKEN MD) HEENT HX ENT Disorders: Yes (DETACHED RETINA HX, vision deficits from stroke) HEENT Disorders: Cataract Hearing Impairment: Bilateral Hearing Aide (RAVIN MCCRACKEN MD) Cancer Hx Cancer: No (RAVIN MCCRACKEN MD) Psychosocial Hx Psychiatric Problems: Yes Behavioral Health Disorders: Depression (RAVIN MCCRACKEN MD) Integumentary HX Skin/Integumentary Disorder: Yes Skin/Integumentary Disorders: Psoriasis (RAVIN MCCRACKEN MD) Blood Transfusions Hx Blood Disorders: No Adverse Reaction to a Blood Tr: No (RAVIN MCCRACKEN MD) Reviewed Nursing Assessment Reviewed/Agree w Nursing PMH: Yes (RAVIN MCCRACKEN MD) Family Medical History Significant Family History: CAD Over 55 Years Old Family Medial History: Cardiovascular disease 19 FATHER, Onset:Unknown Cataracts 19 MOTHER, Onset:Unknown FH: stomach cancer 19 MOTHER, Onset:Unknown Glaucoma 19 MOTHER, Onset:Unknown (RAVIN MCCRACKEN MD) Family Medial History: Cardiovascular disease 19 FATHER, Onset:Unknown Cataracts 19 MOTHER, Onset:Unknown FH: stomach cancer 19 MOTHER, Onset:Unknown Glaucoma 19 MOTHER, Onset:Unknown (PAUL MCQUEEN APRN) Physical Exam-Suspected Sepsis Physical Exam Vital Signs Vital Sign - Last 12Hours 08/09/16 22:18 Temp 99.1 Pulse 113 Resp 20 B/P (MAP) 165/104 Pulse Ox 92 O2 Delivery Room Air (PAUL MCQUEEN APRN) Vital Signs Capillary Refill : Less Than 3 Seconds (RAVIN MCCRACKEN MD) Blood Pressure Mean: 124 General Appearance: No Apparent Distress, WD/WN HEENT: PERRL/EOMI, Pharynx Normal Neck: Non Tender, Supple Respiratory: Lungs Clear, Normal Breath Sounds Cardiovascular: No Murmur, Tachycardia Gastrointestinal: Soft, Tenderness (left lower quadrant) Back: Normal Inspection, No CVA Tenderness, No Vertebral Tenderness Extremity: Normal Range of Motion, Non Tender Neurologic/Psychiatric: Alert, Oriented x3 Skin: normal color, warm/dry, other (surgical wounds to left inguinal area clean, dry and intact.) (RAVIN MCCRACKEN MD) Progress/Results/Core Measures Suspected Sepsis Recent Fever Within 48 Hours: Yes Infection Criteria Present: Suspected New Infection New/Unexplained Altered Menta: Yes Sepsis Screen: Possible Severe Sepsis Risk Sepsis Diagnosis: SIRS Temperature:99.1 Pulse: 113 Respiratory Rate: 20 Laboratory Tests 08/09/16 22:31: White Blood Count 18.2H Blood Pressure 165 /104 Mean: 124 Laboratory Tests 08/09/16 22:31: Platelet Count 255 08/09/16 23:09: Creatinine 0.72, INR Comment 1.2, Total Bilirubin 0.8 (RAVIN MCCRACKEN MD) Results/Orders Lab Results Laboratory Tests Test 08/09/16 22:31 Range/Units White Blood Count 18.2 H 4.3-11.0 10^3/uL Red Blood Count 4.71 4.35-5.85 10^6/uL Hemoglobin 13.9 13.3-17.7 G/DL Hematocrit 42 40-54 % Mean Corpuscular Volume 90 80-99 FL Mean Corpuscular Hemoglobin 30 25-34 PG Mean Corpuscular Hemoglobin Concent 33 32-36 G/DL Red Cell Distribution Width 14.9 H 10.0-14.5 % Platelet Count 255 130-400 10^3/uL Mean Platelet Volume 9.9 7.4-10.4 FL Neutrophils (%) (Auto) 77 H 42-75 % Lymphocytes (%) (Auto) 7 L 12-44 % Monocytes (%) (Auto) 14 H 0-12 % Eosinophils (%) (Auto) 1 0-10 % Basophils (%) (Auto) 0 0-10 % Neutrophils # (Auto) 14.1 H 1.8-7.8 X 10^3 Lymphocytes # (Auto) 1.3 1.0-4.0 X 10^3 Monocytes # (Auto) 2.5 H 0.0-1.0 X 10^3 Eosinophils # (Auto) 0.3 0.0-0.3 10^3/uL Basophils # (Auto) 0.1 0.0-0.1 10^3/uL (PAUL MCQUEEN APRN) My Orders Orders - PAUL MCQUEEN APRN Lidocaine 2% (Urojet) (Xylocaine Urojet) (08/09/16 22:30) (PALU MCQUEEN APRN) Medications Given in ED Current Medications Medications Dose Ordered Sig/Destiny Route Start Time Stop Time Status Last Admin Dose Admin Lidocaine HCl 10 ml ONCE ONCE TOP 08/09/16 22:30 08/09/16 22:31 DC 08/09/16 22:29 10 ML (PAUL MCQUEEN APRN) Vital Signs/I&O Vital Sign - Last 12Hours 08/09/16 22:18 Temp 99.1 Pulse 113 Resp 20 B/P (MAP) 165/104 Pulse Ox 92 O2 Delivery Room Air (PAUL MCQUEEN APRN) Vital Signs/I&O Capillary Refill : Less Than 3 Seconds (RAVIN MCCRACKEN MD) Blood Pressure Mean: 124 Progress Note : Progress Note Seen and evaluated. IV, labs, UA, Esteban catheter, normal saline 1 L bolus, blood cultures and lactic acid ordered. Monitor patient. 2355: CT abdomen pelvis ordered due to concerns of possible postoperative infection as UA and chest x-ray are negative. Zosyn 4.5 g IV ordered. Monitor patient. 0200: I discussed the case with Dr. Keating who accepts patient for admission, inpatient status. Agrees with Zosyn. Clear liquid diet okay. Consult Dr. Wagner placed as he is primary care physician. Dr. Wagner except patient in consult. Findings and concerns discussed with patient and family who agree with plan. Overall improved. Esteban catheter was placed due to persistent feeling of the need to urinate and the difficulty with sitting up and ambulating. (RAVIN MCCRACKEN MD) Diagnostic Imaging Diagonstic Imaging: CT Plain Films/CT/US/NM/MRI: abdomen, pelvis Comments Fat necrosis along the sigmoid colon from recent abdominal surgery versus acute sigmoid diverticulitis. Further clinical correlation and follow-up needed to differentiate. Several incidental findings. See report. Reviewed: Reviewed [place] Study, Reviewed by Me Diagonstic Imaging: Xray Plain Films/CT/US/NM/MRI: chest Comments No acute findings Reviewed: Reviewed by Me (RAVIN MCCRACKEN MD) Departure Communication Time/Spoke to Admitting Phy: 01:45 Time/Spoke to Consulting Physi: 01:55 (RAVIN MCCRACKEN MD) Progress Notes 2245-straight catheter done by me. 450 mL of giovanny colored urine drained from the bladder. (PAUL MCQUEEN APRN) Impression Impression: Primary Impression: Sigmoid diverticulitis Additional Impression: sigmoid fat necrosis Disposition: ADMITTED INPATIENT Condition: Stable Decision to Admit Reason: Admit from ER (General) Decision to Admit/Date: Aug 10, 2016 Time/Decision to Admit Time: 01:45 (RAVIN MCCRACKEN MD) Departure-Patient Inst. Referrals: BRYANT WAGNER MD (PCP/Family) Primary Care Physician RAVIN MCCRACKEN MD Aug 09, 2016 22:31 PAUL MCQUEEN APRN Aug 09, 2016 22:45
[2016-08-09 22:40] LABS: BASOPHILS # (AUTO) 0.1 10^3/uL (0.0-0.1); BASOPHILS % (AUTO) 0 % (0-10); EOSINOPHILS # (AUTO) 0.3 10^3/uL (0.0-0.3); EOSINOPHILS % (AUTO) 1 % (0-10); LYMPHOCYTES # (AUTO) 1.3 X 10^3 (1.0-4.0); LYMPHOCYTES % (AUTO) 7 % (12-44); MEAN CORPUSCULAR HEMOGLOBIN 30 PG (25-34); MEAN CORPUSCULAR HGB CONC 33 G/DL (32-36); MEAN CORPUSCULAR VOLUME 90 FL (80-99); MEAN PLATELET VOLUME 9.9 FL (7.4-10.4); MONOCYTES # (AUTO) 2.5 X 10^3 (0.0-1.0); MONOCYTES % (AUTO) 14 % (0-12); NEUTROPHILS # (AUTO) 14.1 X 10^3 (1.8-7.8); NEUTROPHILS % (AUTO) 77 % (42-75); PLATELET COUNT 255 10^3/uL (130-400); RED BLOOD COUNT 4.71 10^6/uL (4.35-5.85); RED CELL DISTRIBUTION WIDTH 14.9 % (10.0-14.5); WHITE BLOOD COUNT 18.2 10^3/uL (4.3-11.0)
[2016-08-09 22:55] LABS: BAND NEUTROPHILS 3 %; BASOPHILS % (MANUAL) 0 %; EOSINOPHILS % (MANUAL) 1 %; LYMPHOCYTES % (MANUAL) 11 %; NEUTROPHILS % (MANUAL) 80 %
[2016-08-09 23:21] LABS: BILIRUBIN,URINE NEGATIVE (NEGATIVE); KETONES,URINE NEGATIVE (NEGATIVE); LEUKOCYTE ESTERASE ,URINE 1+ (NEGATIVE); NITRITE,URINE NEGATIVE (NEGATIVE); PH,URINE 6 (5-9); PROTEIN,URINE 2+ (NEGATIVE); UROBILINOGEN,URINE NORMAL (NORMAL)
[2016-08-09 23:27] LABS: WBC,URINE 0-2 /HPF
[2016-08-09 23:27] LABS: INR 1.2 (0.8-1.4); PROTHROMBIN TIME PATIENT 15.2 SEC (12.2-14.7)
[2016-08-09 23:46] LABS: ALANINE AMINOTRANSFERASE 6 U/L (0-55); ALBUMIN 3.8 GM/DL (3.2-4.5); ANION GAP 12 MMOL/L (5-14); ASPARTATE AMINO TRANSFERASE 15 U/L (5-34); BILIRUBIN,TOTAL 0.8 MG/DL (0.1-1.0); BLOOD UREA NITROGEN 9 MG/DL (7-18); BUN/CREATININE RATIO 13; CALCIUM 8.9 MG/DL (8.5-10.1); CARBON DIOXIDE 21 MMOL/L (21-32); CHLORIDE 104 MMOL/L (98-107); CREATININE SERUM 0.72 MG/DL (0.60-1.30); GFR ESTIMATED > 60; GLUCOSE 138 MG/DL (70-105); POTASSIUM 3.7 MMOL/L (3.6-5.0); SODIUM 137 MMOL/L (135-145); TOTAL PROTEIN 7.4 GM/DL (6.4-8.2)
[2016-08-10] MEDS ORDERED: PIPERACILLIN/TAZO 4.5 GM VIAL (ZOSYN) IV ONE
[2016-08-10] MEDS ORDERED: NS (IVPB) 100 ML ONE (00:26)
[2016-08-10] MEDS ORDERED: IOHEXOL 350 MG/ML 100 ML (OMNIPAQUE 350) VIAL IV ONE (00:45)
[2016-08-10] MEDS ORDERED: NS 100 ML (IVPB) BAG IV ONE (00:45)
[2016-08-10] MEDS ORDERED: NS IV 1000 ML 1,000 ML ONE (06:09)
[2016-08-10 06:59] LABS: BASOPHILS % (AUTO) 0 % (0-10); EOSINOPHILS # (AUTO) 0.1 10^3/uL (0.0-0.3); EOSINOPHILS % (AUTO) 0 % (0-10); LYMPHOCYTES # (AUTO) 1.5 X 10^3 (1.0-4.0); LYMPHOCYTES % (AUTO) 9 % (12-44); MEAN CORPUSCULAR HEMOGLOBIN 30 PG (25-34); MEAN CORPUSCULAR HGB CONC 33 G/DL (32-36); MEAN CORPUSCULAR VOLUME 89 FL (80-99); MEAN PLATELET VOLUME 9.3 FL (7.4-10.4); MONOCYTES # (AUTO) 2.6 X 10^3 (0.0-1.0); MONOCYTES % (AUTO) 17 % (0-12); NEUTROPHILS # (AUTO) 11.4 X 10^3 (1.8-7.8); NEUTROPHILS % (AUTO) 73 % (42-75); PLATELET COUNT 218 10^3/uL (130-400); RED BLOOD COUNT 4.47 10^6/uL (4.35-5.85); RED CELL DISTRIBUTION WIDTH 14.8 % (10.0-14.5); WHITE BLOOD COUNT 15.6 10^3/uL (4.3-11.0)
[2016-08-10 07:19] LABS: ALANINE AMINOTRANSFERASE 11 U/L (0-55); ALBUMIN 3.6 GM/DL (3.2-4.5); ANION GAP 10 MMOL/L (5-14); ASPARTATE AMINO TRANSFERASE 13 U/L (5-34); BILIRUBIN,TOTAL 0.8 MG/DL (0.1-1.0); BLOOD UREA NITROGEN 7 MG/DL (7-18); BUN/CREATININE RATIO 10; CALCIUM 8.5 MG/DL (8.5-10.1); CARBON DIOXIDE 23 MMOL/L (21-32); CHLORIDE 104 MMOL/L (98-107); CREATININE SERUM 0.68 MG/DL (0.60-1.30); GFR ESTIMATED > 60; GLUCOSE 126 MG/DL (70-105); POTASSIUM 3.4 MMOL/L (3.6-5.0); SODIUM 137 MMOL/L (135-145); TOTAL PROTEIN 7.2 GM/DL (6.4-8.2)
[2016-08-10] MEDS ORDERED: ACETAMINOPHEN 500 MG TAB (TYLENOL) PO PRN (07:30)
[2016-08-10] MEDS: PIPERACILLIN/TAZOBACTAM 4.5 GM/NS100 ML IVPB IV SCH ×6 (07:48→22:56)
[2016-08-10] MEDS: NS IV 1000 ML 1,000 ML IV SCH ×2 (07:48→21:04)
[2016-08-10 08:00] VITALS: BP 140/85
--- NOTE | 2016-08-10 08:42 | Diagnostic Imaging Report ---
PROCEDURE: CT abdomen and pelvis with contrast. TECHNIQUE: Multiple contiguous axial images were obtained through the abdomen and pelvis after administration of intravenous contrast. INDICATION: Abdominal pain. History of hernia repair one day ago. Comparison with 08/08/2016. FINDINGS: Left inguinal hernia present. Surgical changes are noted. There is fluid and air extending into the hernia sac which does extend to the scrotum. There is no bowel within the hernia. Sigmoid colon does show diverticulosis. This does appear to be separate from the edema and air demonstrated in the inguinal hernia. The colon overall appears normal. Stomach and small bowel are normal. Liver shows multiple benign-appearing cysts. Gallbladder shows some sludge layering with no definite gallstones. Gallbladder wall not thickened. Bile ducts are not dilated. Pancreas and spleen are normal. The adrenal glands are normal. Kidneys appear normal. There is normal enhancement of the abdominal organs and vessels following IV contrast. Dense atherosclerotic change of the aorta without evidence of aneurysm. There is no free air or free fluid. IMPRESSION: Surgical changes left inguinal canal. The bowel has been removed from the hernia sac. There is edema and fluid with air in the hernia sac now. These findings most likely represent fat necrosis or inflammatory process. These do appear to be separate from the sigmoid colon which is now intraperitoneal within the abdominal cavity and does not appear inflamed. These findings are concordant with the preliminary report. Dictated by: Dictated on workstation # [id number]
--- NOTE | 2016-08-10 09:10 | Diagnostic Imaging Report ---
INDICATION: Recent hernia repair. COMPARISON: 09/12/2015. FINDINGS: There is bilateral basilar atelectasis. There are no acute infiltrates. The heart does appear prominent though this current exam is portable and lordotic probably causing distortion. No evidence of pulmonary edema. No pleural effusions. IMPRESSION: Bilateral basilar atelectasis with no other acute changes noted. Dictated by: Dictated on workstation # [id number]
--- NOTE | 2016-08-10 10:51 | Consultation ---
History of Present Illness History of Present Illness Patient Consulted On(bruno/time) 08/10/16 10:31 Date Seen by Provider: Aug 10, 2016 Time Seen by Provider: 09:45 Reason for Visit: consult for medical management on his chronic co-morbidities History of Present Illness 76 yo M admitted for increasing weakness. He was brought in by his son; his (usual personal carer was in [place] the last 5 days). Pt had undergone mesh repair of left inguinal incarcerated hernia on 08/08/16- his son reports yesterday evening Goyo became increasing weak- and needed to go to the bathroom but did not help. He and his son had to help him to the bathroom. Goyo does have a tendency to let his mood get in the way and he does not participate- and son are frustrated due to Goyo's lack of effort to do things for himself. No fevers or other signs of illness just abdominal discomfort. On admission pt was tachycardic and WBC was elevated. CT of abdomen though showed normal post- op changes - sigmoid colon normal- some edema and air in hernia sac. I was consulted for medical management of co-morbidities including history of seizures, htn, parkinson, depression, COPD. Allergies and Home Medications Allergies Coded Allergies: No Known Drug Allergies (Unverified , 02/24/14) Home Medications Acetaminophen 500 Mg Tablet, 500-1,000 MG PO HS PRN for PAIN, (Reported) Aspirin 81 Mg Tab.chew, 81 MG PO DAILY, (Reported) Benztropine Mesylate 1 Mg Tablet, 1 MG PO BID, (Reported) Haloperidol 2 Mg Tablet, 2 MG PO TID, (Reported) Hydrocodone/Acetaminophen 1 Each Tablet, 1 TAB PO Q8H PRN, #20 Ref 0 Prescribed by: RACHEL KEATING on 08/08/16 1434 Levetiracetam 500 Mg Tablet, 500 MG PO BID, (Reported) Losartan Potassium 100 Mg Tablet, 100 MG PO DAILY, (Reported) Montelukast Sodium 10 Mg Tablet, 10 MG PO DAILY, (Reported) Multivitamin W-Minerals/Lutein 1 Each Tablet, 1 TAB PO HS, (Reported) Phenytoin Sodium Extended 200 Mg Capsule, 200 MG PO DAILY, (Reported) Phenytoin Sodium Extended 300 Mg Capsule, 300 MG PO HS, (Reported) Sertraline HCl 100 Mg Tablet, 100 MG PO DAILY, (Reported) Past Jnqkifh-Ovzowp-Swhzyd Hx Patient Social History Alcohol Use: Denies Use Recreational Drug Use: No Smoking Status: Former Smoker Type Used: Pipe Former Smoker/When Quit: Feb 14, 2011 2nd Hand Smoke Exposure: No Recent Foreign Travel: No Contact w/Someone Who Travel: No Recent Infectious Disease Expo: No Recent Hopitalizations: Yes (emergency hernia repair august 08 2016) Physical Abuse Screen: No Sexual Abuse: No Immunizations Up To Date Tetanus Booster (TDap): Unknown PED Vaccines UTD: No Date of Pneumonia Vaccine: June 10, 2012 Seasonal Allergies Seasonal Allergies: No Surgeries HX Surgeries: Yes (BOOP-LUNG SURGERY, CATARACTS, DETACHED RETINA) Surgeries: Coronary Stent, Eye Surgery, Tonsillectomy Respiratory Hx Respiratory Disorders: Yes Cardiovascular Hx Cardiac Disorders: Yes (STENT) Cardiac Disorders: Coronary Artery Disease, Hypertension Neurological Hx Neurological Disorders: Yes Neurological Disorders: Dementia, Seizure Disorder, Stroke Reproductive System Hx Reproductive Disorders: No Sexually Transmitted Disease: No HIV/AIDS: No Genitourinary Hx Genitourinary Disorders: Yes (pt admits to trouble urinating for years) Gastrointestinal Hx Gastrointestinal Disorders: No Musculoskeletal Hx Musculoskeletal Disorders: No Endocrine Hx Endocrine Disorders: No HEENT HX ENT Disorders: Yes (DETACHED RETINA HX, vision deficits from stroke) HEENT Disorders: Cataract Hearing Impairment: Bilateral Hearing Aide Cancer Hx Cancer: No Psychosocial Hx Psychiatric Problems: Yes Behavioral Health Disorders: Depression Integumentary HX Skin/Integumentary Disorder: Yes Skin/Integumentary Disorders: Psoriasis Blood Transfusions Hx Blood Disorders: No Adverse Reaction to a Blood Tr: No Reviewed Nursing Assessment Reviewed/Agree w Nursing PMH: Yes Family Medical History Significant Family History: CAD Over 55 Years Old Family Medial History: Cardiovascular disease 19 FATHER, Onset:Unknown Cataracts 19 MOTHER, Onset:Unknown FH: stomach cancer 19 MOTHER, Onset:Unknown Glaucoma 19 MOTHER, Onset:Unknown Review of Systems Review of Systems Date Seen by Provider: Aug 10, 2016 Time Seen by Provider: 09:45 General: No Chills, No Night Sweats HEENT: No Head Aches, No Visual Changes Pulmonary: No Dyspnea, No Cough Cardiovascular: No: Chest Pain, Palpitations Gastrointestinal: Abdominal Pain, No: Nausea, Vomiting Genitourinary: Retention Musculoskeletal: No: neck pain, shoulder pain Neurological: Weakness All Other Systems Reviewed All Other Systems Reviewed: Yes Physical Exam Vital Signs Vital Sign - Last 12Hours 08/09/16 08/10/16 22:18 05:51 Temp 99.1 Pulse 113 Resp 20 B/P (MAP) 165/104 Pulse Ox 92 O2 Delivery Room Air O2 Flow Rate 2.00 Capillary Refill : Less Than 3 Seconds General Appearance: No Apparent Distress, WD/WN HEENT: PERRL/EOMI Neck: Full Range of Motion, Normal Inspection, Non Tender, Supple Respiratory: Chest Non Tender, Lungs Clear, Normal Breath Sounds, No Accessory Muscle Use, No Respiratory Distress Cardiovascular: Regular Rate, Rhythm, No Edema, No Murmur Gastrointestinal: Normal Bowel Sounds, Soft, Tenderness (LLQ) Rectal: Deferred Back: No CVA Tenderness Extremity: Normal Inspection, Non Tender Neurologic/Psychiatric: Alert, Oriented x3, Depressed Affect Skin: Normal Color, Warm/Dry Assessment/Plan Assessment/Plan Assessment/Plan 76 yo M Abdominal discomfort- fatty necrosis seen on CT - sigmoid colon appears normal. Left inguinal hernia- s/p reduction of incarceration 08/08/[address] Keating -post op changes noted on CT Leukocytosis- trending. urinary retention- owens in- did follow with Dr. Ledezma- pt has declined cystoscopy/intervention - remove owens- alfuzosin ordered. h/o seizures- will continue dilantin 100mg, keppra 500mg- COPD- on 2L oxygen, follows with Dr. Cornejo as outpt- Was fired from [facility] due to his poor effort and verbally abusing staff- hard of hearing- hearing aids Depression- continue home meds CAD- s/p stent, denies chest pain HTN- monitoring- h/o stroke- stable weakness- PT Dispo: monitor one more day- if leukocytes continue to trend down and no acute abdominal pain/changes result Dr. Keating plans on discharging tomorrow 08/11. remove owens today. PT to work with pt. Problems: Clinical Quality Measures DVT/VTE Risk/Contraindication: Risk Factor Score Per Nursin RFS Level Per Nursing on Admit: 4+=Very High BRYANT WAGNER MD Aug 10, 2016 10:51
[2016-08-10] MEDS ORDERED: PHEN200C3 PO (11:01)
[2016-08-10] MEDS ORDERED: PHEN300C4 PO (11:01)
[2016-08-10] MEDS ORDERED: MONT10TA24 PO (11:20)
[2016-08-10] MEDS ORDERED: BENZ1TAB6 PO (11:25)
[2016-08-10] MEDS ORDERED: HALO2TAB PO (11:25)
[2016-08-10] MEDS ORDERED: HYDROcodone/APAP 5 MG/325 MG (LORTAB) TAB PO PRN (11:45)
[2016-08-10] MEDS ORDERED: BENZTROPINE MESYLATE 1 MG (COGENTIN) TAB PO SCH (11:48)
[2016-08-10] MEDS ORDERED: LEVETIRACETAM 500 MG (KEPPRA) TAB PO SCH (11:49)
[2016-08-10 12:00] VITALS: BP 149/83
--- NOTE | 2016-08-10 12:01 | History & Physical-Surgical ---
History of Present Illness History of Present Illness Reason for visit/HPI I was called last night to admit this pt; who was (per ER) tachycardic, WBC of [address] read as possible infarcted epiploica vs acute Diverticulitis. HPI: Pt presented to ED with report (from son and ) of not acting right, markedly increased weakness and inability to walk due to weakness. Patient has had difficulty going to the bathroom. [place] like he had to go to the bathroom and with moderate assistance from the family was taken to the bathroom multiple times. During this times, he has been unable to urinate. He was seen on Thursday with a spontaneous left inguinal hernia with concerns for incarceration and had emergent LIH performed. He was doing fine thursday night but on Thursday afternoon had a steady decline with increasing weakness. Also complained of pain near the inguinal hernia site. Timing/Duration: 12 Hours, Getting Worse prior to coming into ED Severity: Moderate Associated Systoms: No Chest Pain, No Cough, Fever/Chills, No Headaches, No Nausea/Vomiting, No Shortness of Air, Weakness When seen this am he is lying in bed appears comfortable, complains that it hurts "whenever I move". His states that "he does this whenever he has a procedure, he almost gets depressed and just won't do anything for himself". The reread of CT per radiologist now states that bowel looks fine, no signs of diverticulitis, just inflammation possible fat necrosis and air "in hernia sac" on left. Date of Admission Aug 10, 2016 at 02:10 Time Seen by Provider: 10:41 I consulted on this patient on 08/10/16 11:54 Attending Physician Johnnie Keating DO Admitting Physician Oliver Mckeon MD Consult Allergies and Home Medications Allergies Coded Allergies: No Known Drug Allergies (Unverified , 02/24/14) Home Medications Acetaminophen 500 Mg Tablet, 500-1,000 MG PO HS PRN for PAIN, (Reported) Aspirin 81 Mg Tab.chew, 81 MG PO DAILY, (Reported) Benztropine Mesylate 1 Mg Tablet, 1 MG PO BID, (Reported) Haloperidol 2 Mg Tablet, 2 MG PO TID, (Reported) Hydrocodone/Acetaminophen 1 Each Tablet, 1 TAB PO Q8H PRN, #20 Ref 0 Prescribed by: JOHNNIE KEATING on 08/08/16 1434 Levetiracetam 500 Mg Tablet, 500 MG PO BID, (Reported) Losartan Potassium 100 Mg Tablet, 100 MG PO DAILY, (Reported) Montelukast Sodium 10 Mg Tablet, 10 MG PO DAILY, (Reported) Multivitamin W-Minerals/Lutein 1 Each Tablet, 1 TAB PO HS, (Reported) Phenytoin Sodium Extended 200 Mg Capsule, 200 MG PO DAILY, (Reported) Phenytoin Sodium Extended 300 Mg Capsule, 300 MG PO HS, (Reported) Sertraline HCl 100 Mg Tablet, 100 MG PO DAILY, (Reported) Past Bgyiaep-Nonzen-Ehexot Hx Patient Social History Alcohol Use: Denies Use Recreational Drug Use: No Smoking Status: Former Smoker Former Smoker/When Quit: Feb 14, 2011 Type Used: Pipe 2nd Hand Smoke Exposure: No Recent Foreign Travel: No Contact w/Someone Who Travel: No Recent Infectious Disease Expo: No Recent Hopitalizations: Yes (emergency hernia repair august 08 2016) Physical Abuse Screen: No Sexual Abuse: No Immunizations Up To Date Tetanus Booster (TDap): Unknown PED Vaccines UTD: No Date of Pneumonia Vaccine: June 10, 2012 Seasonal Allergies Seasonal Allergies: No Surgeries HX Surgeries: Yes (BOOP-LUNG SURGERY, CATARACTS, DETACHED RETINA) Surgeries: Coronary Stent, Eye Surgery, Tonsillectomy Respiratory Hx Respiratory Disorders: Yes Cardiovascular Hx Cardiac Disorders: Yes (STENT) Cardiac Disorders: Coronary Artery Disease, Hypertension Neurological Hx Neurological Disorders: Yes Neurological Disorders: Dementia, Seizure Disorder, Stroke Reproductive System Hx Reproductive Disorders: No Sexually Transmitted Disease: No HIV/AIDS: No Genitourinary Hx Genitourinary Disorders: Yes (pt admits to trouble urinating for years) Gastrointestinal Hx Gastrointestinal Disorders: No Musculoskeletal Hx Musculoskeletal Disorders: No Endocrine Hx Endocrine Disorders: No HEENT HX ENT Disorders: Yes (DETACHED RETINA HX, vision deficits from stroke) HEENT Disorders: Cataract Hearing Impairment: Bilateral Hearing Aide Cancer Hx Cancer: No Psychosocial Hx Psychiatric Problems: Yes Behavioral Health Disorders: Depression Integumentary HX Skin/Integumentary Disorder: Yes Skin/Integumentary Disorders: Psoriasis Blood Transfusions Hx Blood Disorders: No Adverse Reaction to a Blood Tr: No Reviewed Nursing Assessment Reviewed/Agree w Nursing PMH: Yes Family Medical History Significant Family History: CAD Over 55 Years Old Family Medial History: Cardiovascular disease 19 FATHER, Onset:Unknown Cataracts 19 MOTHER, Onset:Unknown FH: stomach cancer 19 MOTHER, Onset:Unknown Glaucoma 19 MOTHER, Onset:Unknown Constitutional: No chills, No diaphoresis, malaise, weakness EENTM: No blurred vision, No epistaxis, No mouth pain, No mouth swelling, No throat swelling Respiratory: No cough, No dyspnea on exertion Cardiovascular: No chest pain, No edema, No palpitations Gastrointestinal: LLQ, constipation, No jaundice, loss of appetite Genitourinary: decreased output, No hematuria, hesitancy Musculoskeletal: joint swelling, muscle stiffness Skin: No change in color, No change in hair/nails Psychiatric/Neurological: Anxiety, Depressed, Pre-Existing Deficit, Seizure, Tremors Physical Exam Vital Signs Vital Sign - Last 12Hours 08/09/16 08/10/16 22:18 05:51 Temp 99.1 Pulse 113 Resp 20 B/P (MAP) 165/104 Pulse Ox 92 O2 Delivery Room Air O2 Flow Rate 2.00 Capillary Refill : Less Than 3 Seconds General Appearance: WD/WN, Mild Distress Eyes: Bilateral Eye EOMI, Bilateral Eye PERRL HEENT: Pharynx Normal, No Scleral Icterus (L), No Scleral Icterus (R) Respiratory: Chest Non Tender, Lungs Clear, Normal Breath Sounds, No Accessory Muscle Use, No Respiratory Distress Cardiovascular: Regular Rate, Rhythm, No Edema, No Murmur Gastrointestinal: Normal Bowel Sounds, No Organomegaly, Soft, Other (incision is C/D/I, no erythema or signs of infection, tender to palpation) Back: No CVA Tenderness, No Vertebral Tenderness Extremity: Normal Capillary Refill, No Calf Tenderness Neurologic/Psychiatric: Alert, Oriented x3, Motor Weakness Skin: Normal Color, Warm/Dry Data Review Labs Laboratory Tests 08/09/16 22:31: White Blood Count 18.2H, Red Blood Count 4.71, Hemoglobin 13.9, Hematocrit 42, Mean Corpuscular Volume 90, Mean Corpuscular Hemoglobin 30, Mean Corpuscular Hemoglobin Concent 33, Red Cell Distribution Width 14.9H, Platelet Count 255, Mean Platelet Volume 9.9, Neutrophils (%) (Auto) 77H, Lymphocytes (%) (Auto) 7L , Monocytes (%) (Auto) 14H, Eosinophils (%) (Auto) 1, Basophils (%) (Auto) 0, Neutrophils # (Auto) 14.1H, Lymphocytes # (Auto) 1.3, Monocytes # (Auto) 2.5H, Eosinophils # (Auto) 0.3, Basophils # (Auto) 0.1, Neutrophils % (Manual) 80, Lymphocytes % (Manual) 11, Monocytes % (Manual) 5, Eosinophils % (Manual) 1, Basophils % (Manual) 0, Band Neutrophils 3, Blood Morphology Comment NORMAL 08/09/16 22:39: Urine Color AMBERH, Urine Clarity CLEAR, Urine pH 6, Urine Specific [place] 1.015L, Urine Protein 2+H, Urine Glucose (UA) NEGATIVE, Urine Ketones NEGATIVE, Urine Nitrite NEGATIVE, Urine Bilirubin NEGATIVE, Urine Urobilinogen NORMAL, Urine Leukocyte Esterase 1+H, Urine RBC (Auto) NEGATIVE, Urine RBC NONE, Urine WBC 0-2, Urine Crystals NONE, Urine Bacteria NONE, Urine Casts NONE, Urine Mucus NEGATIVE, Urine Culture Indicated NO 08/09/16 23:09: Prothrombin Time 15.2H, INR Comment 1.2, Activated Partial Thromboplast Time 39H , Sodium Level 137, Potassium Level 3.7, Chloride Level 104, Carbon Dioxide Level 21, Anion Gap 12, Blood Urea Nitrogen 9, Creatinine 0.72, Estimat Glomerular Filtration Rate > 60, BUN/Creatinine Ratio 13, Glucose Level 138H, Lactic Acid Level 1.44, Calcium Level 8.9, Total Bilirubin 0.8, Aspartate Amino Transf (AST/SGOT) 15, Alanine Aminotransferase (ALT/SGPT) 6, Alkaline Phosphatase 123, Total Protein 7.4, Albumin 3.8 08/10/16 06:50: White Blood Count 15.6H, Red Blood Count 4.47, Hemoglobin 13.2L, Hematocrit 40, Mean Corpuscular Volume 89, Mean Corpuscular Hemoglobin 30, Mean Corpuscular Hemoglobin Concent 33, Red Cell Distribution Width 14.8H, Platelet Count 218, Mean Platelet Volume 9.3, Neutrophils (%) (Auto) 73, Lymphocytes (%) (Auto) 9L, Monocytes (%) (Auto) 17H, Eosinophils (%) (Auto) 0, Basophils (%) (Auto) 0, Neutrophils # (Auto) 11.4H, Lymphocytes # (Auto) 1.5, Monocytes # (Auto) 2.6H, Eosinophils # (Auto) 0.1, Basophils # (Auto) 0.0, Sodium Level 137, Potassium Level 3.4L, Chloride Level 104, Carbon Dioxide Level 23, Anion Gap 10, Blood Urea Nitrogen 7, Creatinine 0.68, Estimat Glomerular Filtration Rate > 60, BUN/ Creatinine Ratio 10, Glucose Level 126H, Calcium Level 8.5, Total Bilirubin 0.8 , Aspartate Amino Transf (AST/SGOT) 13, Alanine Aminotransferase (ALT/SGPT) 11, Alkaline Phosphatase 116, Total Protein 7.2, Albumin 3.6 Assessment/Plan Assessment/Plan Assessment/Plan 1. Admitted secondary to Malaise and Weakness, R/O Acute Diverticulitis 2. Dehydration 3. S/P LIH repair with mesh CT - sigmoid colon appears normal and I believe all changes noted in Left groin are post-surgical. I also think his leukocytosis is just acute phase reactant from the surgery. He was very dehydrated and needed to be on fluids; was not drinking anything at home. Pt encouraged to eat more and ambulate with assist. He may benefit from some outpt PT/OT. Plan to continue IV fluids, d/c owens, and keep in hospital one more day. Check labs in am. Pain control as needed. h/o seizures- will continue dilantin 100mg, keppra 500mg- COPD- on 2L oxygen, follows with Dr. Cornejo as outpt- Was fired from [facility] due to his poor effort and verbally abusing staff- hard of hearing- hearing aids Depression- continue home meds CAD- s/p stent, denies chest pain HTN- monitoring- h/o stroke- stable Clinical Quality Measures DVT/VTE Risk/Contraindication: Risk Factor Score Per Nursin RFS Level Per Nursing on Admit: 4+=Very High JOHNNIE KEATING DO Aug 10, 2016 12:01
[2016-08-10] MEDS: ASPIRIN 81 MG CHEW (CHILDREN'S ASA) PO SCH (12:45)
[2016-08-10] MEDS: LOSARTAN 50 MG (COZAAR) TAB PO SCH (12:45)
[2016-08-10] MEDS: MONTELUKAST 10 MG (SINGULAIR) TAB PO SCH (12:45)
[2016-08-10] MEDS: SERTRALINE 100 MG (ZOLOFT) TAB PO SCH (12:46)
[2016-08-10] MEDS: LEVETIRACETAM 500 MG (KEPPRA) TAB PO SCH ×2 (12:46→21:04)
[2016-08-10] MEDS ORDERED: BENZTROPINE MESYLATE 1 MG (COGENTIN) TAB PO PRN (12:55)
[2016-08-10] MEDS ORDERED: HALOPERIDOL 2 MG (HALDOL) TABLET PO SCH (13:00)
[2016-08-10] MEDS ORDERED: HALOPERIDOL 2 MG (HALDOL) TABLET PO PRN (13:00)
[2016-08-10 15:25] VITALS: BP 141/80
[2016-08-10] MEDS ORDERED: ALFUZOSIN HCL 10 MG TAB (UROXATRAL) PO SCH (18:00)
[2016-08-10 20:30] VITALS: BP 123/71
[2016-08-10] MEDS ORDERED: PHENYTOIN 100 MG (DILANTIN) CAP PO SCH (21:00)
[2016-08-11] VITALS: BP 120/75
[2016-08-11 04:00] VITALS: BP 113/70
[2016-08-11 05:59] LABS: BASOPHILS % (AUTO) 0 % (0-10); EOSINOPHILS # (AUTO) 0.1 10^3/uL (0.0-0.3); EOSINOPHILS % (AUTO) 1 % (0-10); LYMPHOCYTES # (AUTO) 1.8 X 10^3 (1.0-4.0); LYMPHOCYTES % (AUTO) 16 % (12-44); MEAN CORPUSCULAR HEMOGLOBIN 29 PG (25-34); MEAN CORPUSCULAR HGB CONC 32 G/DL (32-36); MEAN CORPUSCULAR VOLUME 91 FL (80-99); MEAN PLATELET VOLUME 9.6 FL (7.4-10.4); MONOCYTES # (AUTO) 1.7 X 10^3 (0.0-1.0); MONOCYTES % (AUTO) 15 % (0-12); NEUTROPHILS # (AUTO) 7.5 X 10^3 (1.8-7.8); NEUTROPHILS % (AUTO) 68 % (42-75); PLATELET COUNT 202 10^3/uL (130-400); RED BLOOD COUNT 3.99 10^6/uL (4.35-5.85); RED CELL DISTRIBUTION WIDTH 14.8 % (10.0-14.5); WHITE BLOOD COUNT 11.1 10^3/uL (4.3-11.0)
[2016-08-11 06:37] LABS: ANION GAP 13 MMOL/L (5-14); BLOOD UREA NITROGEN 11 MG/DL (7-18); BUN/CREATININE RATIO 15; CALCIUM 8.1 MG/DL (8.5-10.1); CARBON DIOXIDE 20 MMOL/L (21-32); CHLORIDE 107 MMOL/L (98-107); CREATININE SERUM 0.72 MG/DL (0.60-1.30); GFR ESTIMATED > 60; GLUCOSE 108 MG/DL (70-105); POTASSIUM 3.1 MMOL/L (3.6-5.0); SODIUM 140 MMOL/L (135-145)
[2016-08-11] MEDS: PIPERACILLIN/TAZOBACTAM 4.5 GM/NS100 ML IVPB IV SCH ×2 (06:42)
[2016-08-11] MEDS: NS IV 1000 ML 1,000 ML IV SCH (06:42)
[2016-08-11] MEDS ORDERED: KCL 20 MEQ TAB (K-DUR) PO NR (07:30)
[2016-08-11 08:00] VITALS: BP 154/75
--- NOTE | 2016-08-11 08:51 | Progress Note (SOAP) ---
Subjective Subjective Date Seen by Provider: Aug 11, 2016 Time Seen by Provider: 08:45 76 yo M admitted for weakness, abdominal pain- he did not urinate overnight- bladder scan showed 200cc. Pt denies the urge to urinate at this time. He also reports he does not feel like he can go home yet. Still endorses LLQ discomfort. Review of Systems General: No Chills, No Night Sweats HEENT: No Head Aches, No Visual Changes Pulmonary: No Dyspnea, No Cough Cardiovascular: No: Chest Pain, Palpitations Gastrointestinal: Abdominal Pain (LLQ), No: Nausea, Vomiting Genitourinary: Retention Musculoskeletal: No: neck pain, shoulder pain Neurological: Weakness All Other Systems Reviewed All Other Systems Reviewed: Yes Objective Exam Vital Signs Vital Signs Date Time Temp Pulse Resp B/P (MAP) Pulse Ox O2 Delivery O2 Flow Rate FiO2 08/11/16 08:06 96 Nasal Cannula 2.00 08/11/16 04:00 96.6 96 20 113/70 96 Nasal Cannula 2.00 08/11/16 00:00 97.7 96 22 120/75 94 Nasal Cannula 2.00 08/10/16 21:00 Nasal Cannula 2.00 08/10/16 20:30 97.9 100 24 123/71 93 Nasal Cannula 2.00 08/10/16 19:08 96 Nasal Cannula 3.00 08/10/16 15:25 97.3 91 20 141/80 94 Nasal Cannula 2.00 08/10/16 15:05 Nasal Cannula 3.00 08/10/16 12:00 97 Nasal Cannula 3.00 08/10/16 12:00 97.3 80 20 149/83 96 Nasal Cannula 2.00 08/10/16 11:55 97 I & O 08/11/16 07:00 Intake Total 1700 ml Output Total 950 ml Balance 750 ml General Appearance: No Apparent Distress, WD/WN Eyes: Bilateral Eye EOMI, Bilateral Eye PERRL HEENT: Pharynx Normal, No Scleral Icterus (L), No Scleral Icterus (R) Neck: Full Range of Motion, Normal Inspection, Non Tender, Supple Respiratory: Chest Non Tender, Lungs Clear, Normal Breath Sounds, No Accessory Muscle Use, No Respiratory Distress Cardiovascular: Regular Rate, Rhythm, No Edema, No Murmur Gastrointestinal: Normal Bowel Sounds, No Organomegaly, Soft, Other (incision is C/D/I, no erythema or signs of infection, tender to palpation) Rectal: Deferred Back: No CVA Tenderness, No Vertebral Tenderness Extremity: Normal Capillary Refill, No Calf Tenderness Neurologic/Psychiatric: Alert, Oriented x3, Motor Weakness Skin: Normal Color, Warm/Dry Results Lab Laboratory Tests 08/11/16 05:33: White Blood Count 11.1H, Red Blood Count 3.99L, Hemoglobin 11.7L, Hematocrit 36L , Mean Corpuscular Volume 91, Mean Corpuscular Hemoglobin 29, Mean Corpuscular Hemoglobin Concent 32, Red Cell Distribution Width 14.8H, Platelet Count 202, Mean Platelet Volume 9.6, Neutrophils (%) (Auto) 68, Lymphocytes (%) (Auto) 16, Monocytes (%) (Auto) 15H, Eosinophils (%) (Auto) 1, Basophils (%) (Auto) 0, Neutrophils # (Auto) 7.5, Lymphocytes # (Auto) 1.8, Monocytes # (Auto) 1.7H, Eosinophils # (Auto) 0.1, Basophils # (Auto) 0.0, Sodium Level 140, Potassium Level 3.1L, Chloride Level 107, Carbon Dioxide Level 20L, Anion Gap 13, Blood Urea Nitrogen 11, Creatinine 0.72, Estimat Glomerular Filtration Rate > 60, BUN/ Creatinine Ratio 15, Glucose Level 108H, Calcium Level 8.1L Microbiology 08/09/16 Blood Culture - Preliminary, Resulted No growth Assessment/Plan Assessment/Plan Assessment/Plan 76 yo M Abdominal discomfort- fatty necrosis seen on CT - sigmoid colon appears normal. Left inguinal hernia- s/p reduction of incarceration 08/08/[address] Zhu -post op changes noted on CT Leukocytosis- trending down urinary retention- did follow with Dr. Ledezma- pt has declined cystoscopy/ intervention - alfuzosin restarted- IVF- pt should urinate before he goes home today. h/o seizures- will continue dilantin 100mg, keppra 500mg- COPD- at baseline- on 2L oxygen, follows with Dr. Cornejo as outpt- Was fired from [facility] due to his poor effort and verbally abusing staff- hard of hearing- hearing aids Depression- continue home meds CAD- s/p stent, denies chest pain HTN- monitoring- h/o stroke- stable weakness- PT Dispo: WBC trending down- no fevers or worsening abdominal pain- tolerating diet. If pt urinates today- Okay to discharge from my standpoint; keep follow up with Dr. Zhu. Follow up at [facility] in 2 weeks. Pt does this every admission and at home - he gets in a depressed mood and won' t do much for himself. Problems: Clinical Quality Measures DVT/VTE Risk/Contraindication: Risk Factor Score Per Nursin RFS Level Per Nursing on Admit: 4+=Very High BRYANT WAGNER MD Aug 11, 2016 08:51
[2016-08-11] MEDS: LEVETIRACETAM 500 MG (KEPPRA) TAB PO SCH (09:42)
[2016-08-11] MEDS: LOSARTAN 50 MG (COZAAR) TAB PO SCH (09:42)
[2016-08-11] MEDS: MONTELUKAST 10 MG (SINGULAIR) TAB PO SCH (09:42)
[2016-08-11] MEDS: SERTRALINE 100 MG (ZOLOFT) TAB PO SCH (09:42)
[2016-08-11] MEDS: ASPIRIN 81 MG CHEW (CHILDREN'S ASA) PO SCH (09:43)
[2016-08-11] MEDS ORDERED: PHEN100C11 PO (09:49)
[2016-08-11] MEDS ORDERED: OMG1KC PO (09:49)
[2016-08-11] MEDS ORDERED: HALO2TAB PO (09:49)
[2016-08-11] MEDS ORDERED: CARB1TAB19 PO (09:49)
[2016-08-11] MEDS ORDERED: HYDR-3812 PO (09:49)
--- NOTE | 2016-08-11 10:21 | Progress Note ---
Subjective Time Seen by Provider: 09:53 Subjective/Events-last exam Pt seen and examined, states he is too weak to go home. He has not voided since yesterday. Bladder scan showed only 250ml in bladder. He still has moderate pain. He is eating a little. Review of Systems General: No Chills, No Night Sweats Pulmonary: No Dyspnea, No Cough Cardiovascular: No: Chest Pain, Palpitations Gastrointestinal: No: Nausea, Vomiting Objective Exam Vital Signs Date Time Temp Pulse Resp B/P (MAP) Pulse Ox O2 Delivery O2 Flow Rate FiO2 08/11/16 08:06 96 Nasal Cannula 2.00 08/11/16 08:00 96.8 71 18 154/75 97 Nasal Cannula 2.00 08/11/16 04:00 96.6 96 20 113/70 96 Nasal Cannula 2.00 08/11/16 00:00 97.7 96 22 120/75 94 Nasal Cannula 2.00 08/10/16 21:00 Nasal Cannula 2.00 08/10/16 20:30 97.9 100 24 123/71 93 Nasal Cannula 2.00 08/10/16 19:08 96 Nasal Cannula 3.00 08/10/16 15:25 97.3 91 20 141/80 94 Nasal Cannula 2.00 08/10/16 15:05 Nasal Cannula 3.00 08/10/16 12:00 97 Nasal Cannula 3.00 08/10/16 12:00 97.3 80 20 149/83 96 Nasal Cannula 2.00 08/10/16 11:55 97 I & O 08/11/16 07:00 Intake Total 1700 ml Output Total 950 ml Balance 750 ml Capillary Refill : Less Than 3 Seconds General Appearance: No Apparent Distress, WD/WN HEENT: Pharynx Normal, No Scleral Icterus (L), No Scleral Icterus (R) Neck: Full Range of Motion, Normal Inspection, Non Tender, Supple Respiratory: Chest Non Tender, Lungs Clear, Normal Breath Sounds, No Accessory Muscle Use, No Respiratory Distress Cardiovascular: Regular Rate, Rhythm, No Edema, No Murmur Gastrointestinal: normal bowel sounds, soft, no organomegaly, other (incision c /d/i) Extremity: Normal Capillary Refill, No Calf Tenderness Neurologic/Psychiatric: Alert, Oriented x3, Motor Weakness Skin: Normal Color, Warm/Dry Results Lab Laboratory Tests 08/11/16 05:33: White Blood Count 11.1H, Red Blood Count 3.99L, Hemoglobin 11.7L, Hematocrit 36L , Mean Corpuscular Volume 91, Mean Corpuscular Hemoglobin 29, Mean Corpuscular Hemoglobin Concent 32, Red Cell Distribution Width 14.8H, Platelet Count 202, Mean Platelet Volume 9.6, Neutrophils (%) (Auto) 68, Lymphocytes (%) (Auto) 16, Monocytes (%) (Auto) 15H, Eosinophils (%) (Auto) 1, Basophils (%) (Auto) 0, Neutrophils # (Auto) 7.5, Lymphocytes # (Auto) 1.8, Monocytes # (Auto) 1.7H, Eosinophils # (Auto) 0.1, Basophils # (Auto) 0.0, Sodium Level 140, Potassium Level 3.1L, Chloride Level 107, Carbon Dioxide Level 20L, Anion Gap 13, Blood Urea Nitrogen 11, Creatinine 0.72, Estimat Glomerular Filtration Rate > 60, BUN/ Creatinine Ratio 15, Glucose Level 108H, Calcium Level 8.1L Microbiology 08/09/16 Blood Culture - Preliminary, Resulted No growth Assessment/Plan Assessment/Plan Assessment/Plan Malaise/Weakness Hypokalemia Urinary retention Plan is to dischage pt home with Home Health. Will get PT out and possible home health aid, straight cath as needed. I tried to explain to pt and his that we are not doing anything for pt in hospital that we can't do at home. If he stays in hospital he increases risk of getting Hospital aquired infection. They are ok to go home with help for at home. Abdominal discomfort- fatty necrosis seen on CT - sigmoid colon appears normal. Left inguinal hernia- s/p reduction of incarceration 08/08/[address] Zhu -post op changes noted on CT Leukocytosis- trending down urinary retention- did follow with Dr. Ledezma- pt has declined cystoscopy/ intervention - alfuzosin restarted- IVF- pt should urinate before he goes home today. h/o seizures- will continue dilantin 100mg, keppra 500mg- COPD- at baseline- on 2L oxygen, follows with Dr. Cornejo as outpt- Was fired from [facility] due to his poor effort and verbally abusing staff- hard of hearing- hearing aids Depression- continue home meds CAD- s/p stent, denies chest pain HTN- monitoring- h/o stroke- stable weakness- PT Clinical Quality Measures DVT/VTE Risk/Contraindication: Risk Factor Score Per Nursin RFS Level Per Nursing on Admit: 4+=Very High RACHEL ZHU DO Aug 11, 2016 10:20
--- NOTE | 2016-08-11 10:28 | D/C HH Face to Face Order ---
D/C Face to Face Orders Instructions for Patient Patient Instructions/FollowUp: See D/C Physician to follow Patient: Dr. Oliver Mckeon Discharge Diet for Home: Regular Diet Goals for Patient: increase strength Patient Data-Allergies,Ht & Wt Patient Allergies: Coded Allergies: No Known Drug Allergies (Unverified , 02/24/14) Height (Feet): 5 Height (Inches): 11.00 Weight (Pounds): 228 Weight (Ounces): 7.0 Home Health Need/Face to Face Date of Face to Face: Aug 11, 2016 Clinical Findings: Generalized weakness and fatigue, Instability, Muscle weakness, Non or partial weight bearing, Unsteady gait Urinary retention I have seen Pt [id number]: Yes Discharged To: Home Diagnosis/Conditions: Weakness, Depression, Seizures, Urinary retention Problems/Diagnosis/Condition: Patient is Homebound due to: [place] fall risk due to instabilty, Muscle weakness Homebound Status Due to the above stated illness, injury or surgical procedure (medical condition or diagnosis) and associated clinical findings, the patient is homebound because of his/her inability to leave home except with aid of a supportive device and/or person AND leaving the home requires a considerable and taxing effort or is medically contraindicated. Pt req the following assistanc: Aid of another person Home Health Nursing Orders Home Health Services Order: Nursing Services, Physical Therapy-Evaluate & Treat Straight Cath PRN Home Health Infusion Therapy Line Start Date: Aug 09, 2016 Therapy Orders Therapy Orders: Physical Therapy, PT to assess for OT Therapy Specific Orders: Teach strategies/cognitive deficits, Teach enviro modifications/safety, Increase strength/endurance Certify Stmt I certify that this patient is under my care and that I, a nurse practitioner or a physician; a showroom sales assistant working with me, had a face to face encounter that - meets the physician face to face encounter requirements with this patient as dated. RACHEL KEATING DO Aug 11, 2016 10:28
--- NOTE | 2016-08-11 10:29 | Discharge Inst-Surgical ---
Discharge Inst-Surgical Depart Medication/Instructions Patient Instructions Follow up Appt: Make appointment for 1 week. Instructions: No lifting greater than 10 pounds. No strenuous activity. May shower in 24 hours, no tub bath or soaking. Use incentive spirometer at home as directed. No Smoking Skin/Wound Care: Keep clean dry and intact. Symptoms to Report: Appetite Changes, Extremity Discoloration, Numbness/Tingling, Swelling Increased , Bleeding Excessive, Eyesight Changes, Pain Increased, Urine Color Change, Constipation(Persistent), Fever over 101 degree F, Pain/Pressure in chest, Urinating Difficulty, Cough Up/Vomit Blood, Heart Beat Irreg/Pounding, Pain/ Pressure in jaw, Vaginal Bleeding Increase, Cramps in feet or legs, Lightheadedness, Pain/Pressure in shoulder, Diarrhea(Persistent), Memory Changes Suddenly, Questions/Concerns, Weight gain consecutive days, Dizziness/ Fainting, Nausea/Vomiting, Shortness of Breath, Weight gain over 2 pounds If questions or concerns contact your physician Or seek help at emergency department. Diet Discharge Diet: No Restrictions If Any Problems/Questions/Issu: Contact Your Physician, Go to Emergency Room Skin/Wound Care Infection Signs and Symptoms: Increased Redness, Foul Odor of Wound, Increased Drainage, Skin Itchy or Has a Rash, Increased Swelling, Temperature Above 101 F Bathing Instructions: RACHEL Ruiz DO Aug 11, 2016 10:29
[2016-08-11] MEDS ORDERED: PHENYTOIN 100 MG (DILANTIN) CAP PO SCH (10:41)
[2016-08-11] MEDS: POTASSIUM CL 10MEQ/50ML IVPB 50 ML IV SCH ×4 (12:08→15:30)
--- NOTE | 2016-08-11 12:08 | Physical Therapy Evaluation ---
PT Evaluation-General Medical Diagnosis Admission Date Aug 10, 2016 at 02:10 Medical Diagnosis: diverticulitis Onset Date: Aug 10, 2016 Therapy Diagnosis Therapy Diagnosis: decreased mobility Height/Weight Height (Feet): 5 Height (Inches): 11.00 Weight (Pounds): 228 Weight (Ounces): 7.0 Precautions Precautions/Isolations: Seizure, Standard Precautions Referral Physician: Mike Reason for Referral: Evaluation/Treatment Medical History Pertinent Medical History: CAD, COPD, CVA, Dementia, HTN Additional Medical History s/p left inguinal hernia repair Current History ER with tachycardia decreased motivation with mobility (PLOF) Reviewed History: Yes Social History Home: Single Level Current Living Status: Spouse Prior/Core FIM Prior Level of Function Functional [place] Measure 0=Not Assessed/NA 4=Minimal Assistance 1=Total Assistance 5=Supervision or Setup 2=Maximal Assistance 6=Modified [place] 3=Moderate Assistance 7=Complete [place] Transfers (B,C,W/C) (FIM): 6 Gait: 6 patient sleeps in recliner PT Evaluation-Current Subjective Patient is very agitated and reluctantly agrees to PT. Pain Numeric Pain Scale: 0-No Pain Location: No Pain Reported Objective Patient Orientation: Confused Problem Solving: Poor Attachments: Oxygen, IV ROM/Strength ROM Lower Extremities bilateral LE WNL Strenght Lower Extremities bilateral LE WNL (no formal testing due to confusion and agitation) Integumentary/Posture Integumentary refer to nursing notes Bowel Incontinence: No Bladder Incontinence: No Posture hip flexed posture in stand Neuromuscular (Tone, Coordination, Reflexes) diminished coordination due to inactivity PLOF. Sensory Vision: Blind Legally Hearing: Impaired Sensation Right Lower Extremit: Impaired Sensation Left Lower Extremity: Impaired Transfers Functional [place] Measure 0=Not Assessed/NA 4=Minimal Assistance 1=Total Assistance 5=Supervision or Setup 2=Maximal Assistance 6=Modified [place] 3=Moderate Assistance 7=Complete [place] Transfers (B, C, W/C) (FIM): 5 Scootin Rollin Supine to/from Sit: 5 Sit to/from Stand: 5 Gait Mode of Locomotion: Walk Anticipated Mode of Locomotion: Walk Gait (FIM): 5 Distance (FIM): 3=150 ft Distance: 200' Gait Level of Assist: 5 Gait Persons Needed: 1 Gait Assistive Device: FWW Comments/Gait Description slow, functional with FWW Balance Sitting Static: Normal Sitting Dynamic: Normal Standing Static: Normal Standing Dynamic: Normal Assessment/Needs 76 y.o. male, will benefit from skilled PT to address functional strength and mobility. Patient self limits with activity and has done so, per spouse, for 20 yrs. Patient performs skills SBA, however require much encouragement to do so. Rehab Potential: Fair Post Rehab Potential-Barriers: motivation PT Warper [place]eler Goals Mcc Goals PT Mcc Goals Time Frame: Aug 15, 2016 Transfers (B,C,W/C) (FIM): 5 Gait (FIM): 5 Gait distance (FIM): 3=150 ft Distance: 225' Gait Level of Assist: 5 Gait Assistive Device: FWW PT Plan Problem List Problem List: Activity Tolerance, Functional Strength, Other (motivation) Treatment/Plan Treatment Plan: Continue Plan of Care Treatment Plan: Bed Mobility, Education, Functional Activity Roberto, Functional Strength, Gait, Safety, Therapeutic Exercise, Transfers Treatment Duration: Aug 15, 2016 # of days/week 5 Visits Per Week: 5 Pt/Family Agrees w/Plan: Yes Safety Risks/Education Patient Education: Safety Issues Teaching Recipient: Patient Teaching Methods: Discussion Response to Teaching: Reinforcement Needed Discharge Recommendations Therapy D/C Recommendations: Home w/ Family Support Time/GCodes Time In: 1015 Time Out: 1040 Total Billed Treatment Time: 25 [facility] PT Aug 11, 2016 12:08
[2016-08-11 12:28] VITALS: BP 145/75
[2016-08-11] MEDS ORDERED: MILK OF MAGNESIA 400 MG/5 ML 30 ML UDC PO NR (12:45)
[2016-08-11 16:05] VITALS: BP 155/73
[2016-08-11 16:40] VITALS: BP 155/73
== END 2016-08-11 16:40 | DRG 948 ==
LOC: EDUNIT# 22:10 → ER 22:12 → 4TH 08-10 02:10
PROVIDERS: ADMIT Surgery; ATTEND Surgery
DX: R53.1 Weakness (principal); E87.6 Hypokalemia; R33.9 Retention of urine, unspecified; I25.10 Atherosclerotic heart disease of native coronary artery without angina pectoris; I10 Essential (primary) hypertension; F03.90 Unspecified dementia, unspecified severity, without behavioral disturbance, psychotic disturbance, mood disturbance, and anxiety; G40.909 Epilepsy, unspecified, not intractable, without status epilepticus; J44.9 Chronic obstructive pulmonary disease, unspecified; F32.9 Major depressive disorder, single episode, unspecified; G20 Parkinson's disease; L40.9 Psoriasis, unspecified; I69.398 Other sequelae of cerebral infarction; Z95.5 Presence of coronary angioplasty implant and graft; Z87.891 Personal history of nicotine dependence
CPT/HCPCS: 36415; 51702; 71010; 74177; 80048; 80053; 81000; 82962; 83605; 85007; 85025; 85027; 85610; 85730; 87040; 94640; 94664; 94760; 96365

== ENCOUNTER 2016-08-17 19:46 | Inpatient (IN) | payer MEDICARE ==
[~2016-08-17] VITALS: Ht 180.3 cm; Wt 103.5 kg
[~2016-08-17 19:46] MED LIST changes: +BENZ1TAB6 PO; +CARB1TAB19 PO; +HALO2TAB PO; +MONT10TA24 PO; +PHEN200C3 PO; +PHEN300C4 PO
[2016-08-17] MEDS ORDERED: NS IV 1000 ML 1,000 ML IV ONE (21:31)
--- NOTE | 2016-08-17 21:34 | ED Neurological Problem ---
General Chief Complaint: Trauma-Non Activation Stated Complaint: FALL Nursing Triage Note: FALL X2 FROM STANDING POSITION TODAY, C/O BILATERAL LEG PAIN. NO REPORTED LOC/HEAD INJURY. URINARY RETENTION, INCREASED CONFUSION. Nursing Sepsis Screen: Possible Severe Sepsis Risk Source: patient, family, RN notes reviewed, old records Exam Limitations: clinical condition History of Present Illness Time seen by provider: 21:31 Initial Comments Patient brought to the ED p/ having 2 falls today while @ [facility] where he is for rehab from recent surgery for an incarcerated left inguinal hernia. He is c/o BLE leg weakness and pain. He is also reportedly more confused than normal as well. His primary concern to me is the swelling and pain he has of his testicles which he states has been present since his surgery. No reports of fever. Location Injury Occurred: [facility] [address] Timing/Duration: 24 hours Severity: moderate (his pain is reported to be 5/10; constant; achy) Associated Symptoms: confusion, trouble walking, weakness Allergies and Home Medications Allergies Coded Allergies: No Known Drug Allergies (Unverified , 02/24/14) Home Medications Acetaminophen 500 Mg Tablet, 500-1,000 MG PO HS PRN for PAIN-MILD, (Reported) Aspirin 81 Mg Tab.chew, 81 MG PO DAILY, (Reported) Benztropine Mesylate 1 Mg Tablet, 1 MG PO BID, (Reported) Carbidopa/Levodopa 1 Each Tablet, 1 TAB PO TID, (Reported) Haloperidol 2 Mg Tablet, 2 MG PO BID, (Reported) Haloperidol 2 Mg Tablet, 2 MG PO 1200 PRN for MOOD, (Reported) Hydrocodone/Acetaminophen 1 Each Tablet, 1 TAB PO Q8H PRN for PAIN-MODERATE, ( Reported) Levetiracetam 500 Mg Tablet, 500 MG PO BID, (Reported) Losartan Potassium 100 Mg Tablet, 100 MG PO DAILY, (Reported) Montelukast Sodium 10 Mg Tablet, 10 MG PO DAILY, (Reported) Multivitamin W-Minerals/Lutein 1 Each Tablet, 1 TAB PO HS, (Reported) [place] 3 Polyunsat Fatty Acids 1,000 Mg Cap, 1,000 MG PO DAILY, (Reported) Phenytoin Sodium Extended 100 Mg Capsule, 200 MG PO BID, (Reported) TAKES 2 (100MG) CAPSULES Sertraline HCl 100 Mg Tablet, 100 MG PO DAILY, (Reported) Constitutional: see HPI, weakness Genitourinary: see HPI, pain (and swelling of scrotum) Musculoskeletal: see HPI, other (also c/o BLE pain and weakness) Psychiatric/Neurological: See HPI (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) All Other Systems Reviewed Negative Unless Noted: Yes (Negative excepted noted.) Past Lwsgzcr-Sybedp-Cqmcsh Hx Patient Social History Alcohol Use: Denies Use Recreational Drug Use: No Type Used: Pipe Former Smoker/When Quit: Feb 14, 2011 2nd Hand Smoke Exposure: No Recent Foreign Travel: No Contact w/Someone Who Travel: No Recent Infectious Disease Expo: No Recent Hopitalizations: Yes (emergency hernia repair august 08 2016) Immunizations Up To Date Tetanus Booster (TDap): Less than 5yrs PED Vaccines UTD: No Date of Pneumonia Vaccine: June 10, 2012 Seasonal Allergies Seasonal Allergies: No Surgeries HX Surgeries: Yes (BOOP-LUNG SURGERY, CATARACTS, DETACHED RETINA) Surgeries: Coronary Stent, Eye Surgery, Tonsillectomy Respiratory Hx Respiratory Disorders: Yes Cardiovascular Hx Cardiac Disorders: Yes (STENT) Cardiac Disorders: Coronary Artery Disease, Hypertension Neurological Hx Neurological Disorders: Yes Neurological Disorders: Dementia, Seizure Disorder, Stroke Reproductive System Hx Reproductive Disorders: No Sexually Transmitted Disease: No HIV/AIDS: No Genitourinary Hx Genitourinary Disorders: Yes (pt admits to trouble urinating for years) Gastrointestinal Hx Gastrointestinal Disorders: No Musculoskeletal Hx Musculoskeletal Disorders: No Endocrine Hx Endocrine Disorders: No HEENT HX ENT Disorders: Yes (DETACHED RETINA HX, vision deficits from stroke) HEENT Disorders: Cataract Hearing Impairment: Bilateral Hearing Aide Cancer Hx Cancer: No Psychosocial Hx Psychiatric Problems: Yes Behavioral Health Disorders: Depression Integumentary HX Skin/Integumentary Disorder: Yes Skin/Integumentary Disorders: Psoriasis Blood Transfusions Hx Blood Disorders: No Adverse Reaction to a Blood Tr: No Family Medical History Significant Family History: CAD Over 55 Years Old Family Medial History: Cardiovascular disease 19 FATHER, Onset:Unknown Cataracts 19 MOTHER, Onset:Unknown FH: stomach cancer 19 MOTHER, Onset:Unknown Glaucoma 19 MOTHER, Onset:Unknown Physical Exam Vital Signs Vital Sign - Last 12Hours 08/17/16 20:34 Temp 99.2 Pulse 114 Resp 18 B/P (MAP) 164/93 Pulse Ox 94 O2 Delivery Room Air Capillary Refill : Less Than 3 Seconds General Appearance: WD/WN, no apparent distress HEENT: normal ENT inspection Neck: normal inspection Respiratory: lungs clear, no respiratory distress Cardiovascular: regular rate, rhythm, tachycardia Gastrointestinal: tenderness (LLQ) Genital/Rectal: other (penis/foreskin and scrotum are all swollen, but not warm , or hot.) Extremities: normal inspection Neurologic/Psychiatric: alert, other (confused to date and time @ present) Crainal Nerves: normal hearing, normal speech Skin: warm/dry Stroke Stroke Thrombolytic Exclusion Age 18 or Over: Yes Focused Exam Lactic Acid Level Laboratory Tests Test 08/17/16 23:43 Lactic Acid Level 0.72 MMOL/L (0.50-2.00) Progress/Results/Core Measures Results/Orders Lab Results Laboratory Tests Test 08/17/16 21:08 08/17/16 22:10 08/17/16 23:43 Range/Units White Blood Count 18.2 H 4.3-11.0 10^3/uL Red Blood Count 4.59 4.35-5.85 10^6/uL Hemoglobin 13.4 13.3-17.7 G/DL Hematocrit 41 40-54 % Mean Corpuscular Volume 89 80-99 FL Mean Corpuscular Hemoglobin 29 25-34 PG Mean Corpuscular Hemoglobin Concent 33 32-36 G/DL Red Cell Distribution Width 14.3 10.0-14.5 % Platelet Count 375 130-400 10^3/uL Mean Platelet Volume 9.7 7.4-10.4 FL Neutrophils (%) (Auto) 78 H 42-75 % Lymphocytes (%) (Auto) 9 L 12-44 % Monocytes (%) (Auto) 13 H 0-12 % Eosinophils (%) (Auto) 0 0-10 % Basophils (%) (Auto) 0 0-10 % Neutrophils # (Auto) 14.1 H 1.8-7.8 X 10^3 Lymphocytes # (Auto) 1.7 1.0-4.0 X 10^3 Monocytes # (Auto) 2.3 H 0.0-1.0 X 10^3 Eosinophils # (Auto) 0.1 0.0-0.3 10^3/uL Basophils # (Auto) 0.0 0.0-0.1 10^3/uL Neutrophils % (Manual) 81 % Lymphocytes % (Manual) 8 % Monocytes % (Manual) 6 % Eosinophils % (Manual) 0 % Basophils % (Manual) 0 % Band Neutrophils 1 % Reactive Lymphocytes 4 % Polychromasia SLIGHT Anisocytosis SLIGHT D-Dimer 2.76 H 0.00-0.49 UG/ML Sodium Level 135 135-145 MMOL/L Potassium Level 3.8 3.6-5.0 MMOL/L Chloride Level 98 98-107 MMOL/L Carbon Dioxide Level 23 21-32 MMOL/L Anion Gap 14 5-14 MMOL/L Blood Urea Nitrogen 10 7-18 MG/DL Creatinine 0.71 0.60-1.30 MG/DL Estimat Glomerular Filtration Rate > 60 BUN/Creatinine Ratio 14 Glucose Level 131 H 70-105 MG/DL Calcium Level 9.3 8.5-10.1 MG/DL Magnesium Level 2.1 1.8-2.4 MG/DL Total Bilirubin 0.6 0.1-1.0 MG/DL Aspartate Amino Transf (AST/SGOT) 24 5-34 U/L Alanine Aminotransferase (ALT/SGPT) 26 0-55 U/L Alkaline Phosphatase 122 40-136 U/L Total Protein 8.0 6.4-8.2 GM/DL Albumin 4.0 3.2-4.5 GM/DL Urine Color YELLOW Urine Clarity CLEAR Urine pH 7 5-9 Urine Specific [employer] 1.010 L 1.016-1.022 Urine Protein 2+ H NEGATIVE Urine Glucose (UA) NEGATIVE NEGATIVE Urine Ketones NEGATIVE NEGATIVE Urine Nitrite NEGATIVE NEGATIVE Urine Bilirubin NEGATIVE NEGATIVE Urine Urobilinogen NORMAL NORMAL MG/DL Urine Leukocyte Esterase NEGATIVE NEGATIVE Urine RBC (Auto) 1+ H NEGATIVE Urine RBC 0-2 /HPF Urine WBC RARE /HPF Urine Squamous Epithelial Cells RARE /HPF Urine Crystals NONE /LPF Urine Bacteria NEGATIVE /HPF Urine Casts NONE /LPF Urine Mucus SMALL H /LPF Urine Culture Indicated NO Lactic Acid Level 0.72 0.50-2.00 MMOL/L My Orders Orders - YOUSIF SIMPSON DO Cbc With Automated Diff (08/17/16 21:31) Comprehensive Metabolic Panel (08/17/16 21:31) Lactic Acid Analyzer (08/17/16 21:31) Magnesium (08/17/16 21:31) Ua Culture If Indicated (08/17/16 21:31) Blood Culture (08/17/16 21:31) Chest 1 View, Ap/Pa Only (08/17/16 21:31) Ns Iv 1000 Ml (Sodium Chloride 0.9%) (08/17/16 21:31) Ns Iv 1000 Ml (Sodium Chloride 0.9%) (08/17/16 21:38) Manual Differential (08/17/16 21:08) Ct Abdomen/Pelvis W (08/17/16 22:11) Iohexol Injection (Omnipaque 350 Mg/Ml 1 (08/17/16 22:30) Sodium Chloride Flush (Catheter Flush Sy (08/17/16 22:30) Ns (Ivpb) (Sodium Chloride 0.9% Ivpb Bag (08/17/16 22:30) Fibrin Degradation Products (08/18/16 00:03) Piperacillin Sodium/Tazobactam (Zosyn Vi (08/18/16 01:30) Enoxaparin Injection (Lovenox Injection) (08/18/16 01:30) Medications Given in ED Current Medications Medications Dose Ordered Sig/Destiny Route Start Time Stop Time Status Last Admin Dose Admin Enoxaparin Sodium 100 mg ONCE ONCE SC 08/18/16 01:30 08/18/16 01:31 DC 08/18/16 02:01 100 MG Iohexol 100 ml ONCE ONCE IV 08/17/16 22:30 08/17/16 22:31 DC 08/17/16 22:39 100 ML Piperacillin Sod/ Tazobactam Sod 4.5 gm/Sodium Chloride 100 ml @ 200 mls/hr ONCE ONCE IV 08/18/16 01:30 08/18/16 01:59 DC 08/18/16 02:01 200 MLS/HR Sodium Chloride 100 ml ONCE ONCE IV 08/17/16 22:30 08/17/16 22:31 DC 08/17/16 22:39 80 ML Sodium Chloride 1,000 ml @ 250 mls/hr Q4H ONCE IV 08/17/16 21:31 08/18/16 01:30 DC 08/17/16 21:44 250 MLS/HR Vital Signs/I&O Vital Sign - Last 12Hours 08/17/16 20:34 Temp 99.2 Pulse 114 Resp 18 B/P (MAP) 164/93 Pulse Ox 94 O2 Delivery Room Air Blood Pressure Mean: 116 Progress Note : Progress Note Patient has a markedly elevated d-dimer, but we have already done a contrasted CT abdomen-pelvis on him, so unable to do a CT angio on him @ present, although he really doesn't have any symptoms suggestive of a PE. Although his BLE pain may be suggestive of possible DVT. Went ahead and covered him c/ Lovenox x 12 hours and will get a venous US of his legs, as well as his scrotum first thing in the AM, 08/18. Going to cover him c/ some Zosyn as well in light of his WBC, low grade fever, and ? CT abdomen-pelvis findings until everything can get sorted out. Diagnostic Imaging Diagonstic Imaging: CT Plain Films/CT/US/NM/MRI: abdomen, pelvis Reviewed: Reviewed Night [facility] Study Departure Communication Time/Spoke to Admitting Phy: 02:21 Impression Impression: Primary Impression: Fall Additional Impressions: BLE pain/weakness Increased confusion Neutrophilic leukocytosis External gentalia swelling/pain Elevated d-dimer ? abnormal CT abdomen Disposition: ADMITTED INPATIENT Condition: Stable (ERASED) Decision to Admit Reason: Admit from ER (General) Decision to Admit/Date: Aug 18, 2016 Time/Decision to Admit Time: 02:21 Departure-Patient Inst. Referrals: BRYANT WAGNER MD (PCP/Family) Primary Care Physician YOUSIF SIMPSON DO Aug 17, 2016 21:33
[2016-08-17] MEDS ORDERED: NS IV 1000 ML 1,000 ML ONE (21:38)
[2016-08-17 21:43] LABS: BASOPHILS % (AUTO) 0 % (0-10); EOSINOPHILS # (AUTO) 0.1 10^3/uL (0.0-0.3); EOSINOPHILS % (AUTO) 0 % (0-10); LYMPHOCYTES # (AUTO) 1.7 X 10^3 (1.0-4.0); LYMPHOCYTES % (AUTO) 9 % (12-44); MEAN CORPUSCULAR HEMOGLOBIN 29 PG (25-34); MEAN CORPUSCULAR HGB CONC 33 G/DL (32-36); MEAN CORPUSCULAR VOLUME 89 FL (80-99); MEAN PLATELET VOLUME 9.7 FL (7.4-10.4); MONOCYTES # (AUTO) 2.3 X 10^3 (0.0-1.0); MONOCYTES % (AUTO) 13 % (0-12); NEUTROPHILS # (AUTO) 14.1 X 10^3 (1.8-7.8); NEUTROPHILS % (AUTO) 78 % (42-75); PLATELET COUNT 375 10^3/uL (130-400); RED BLOOD COUNT 4.59 10^6/uL (4.35-5.85); RED CELL DISTRIBUTION WIDTH 14.3 % (10.0-14.5); WHITE BLOOD COUNT 18.2 10^3/uL (4.3-11.0)
[2016-08-17 22:00] LABS: ANISOCYTOSIS SLIGHT; BAND NEUTROPHILS 1 %; BASOPHILS % (MANUAL) 0 %; EOSINOPHILS % (MANUAL) 0 %; LYMPHOCYTES % (MANUAL) 8 %; NEUTROPHILS % (MANUAL) 81 %; POLYCHROMASIA SLIGHT; REACTIVE LYMPHOCYTES 4 %
[2016-08-17 22:10] LABS: ALANINE AMINOTRANSFERASE 26 U/L (0-55); ANION GAP 14 MMOL/L (5-14); ASPARTATE AMINO TRANSFERASE 24 U/L (5-34); BILIRUBIN,TOTAL 0.6 MG/DL (0.1-1.0); BLOOD UREA NITROGEN 10 MG/DL (7-18); BUN/CREATININE RATIO 14; CALCIUM 9.3 MG/DL (8.5-10.1); CARBON DIOXIDE 23 MMOL/L (21-32); CHLORIDE 98 MMOL/L (98-107); CREATININE SERUM 0.71 MG/DL (0.60-1.30); GFR ESTIMATED > 60; GLUCOSE 131 MG/DL (70-105); MAGNESIUM 2.1 MG/DL (1.8-2.4); POTASSIUM 3.8 MMOL/L (3.6-5.0); SODIUM 135 MMOL/L (135-145)
[2016-08-17 22:26] LABS: BILIRUBIN,URINE NEGATIVE (NEGATIVE); KETONES,URINE NEGATIVE (NEGATIVE); LEUKOCYTE ESTERASE ,URINE NEGATIVE (NEGATIVE); NITRITE,URINE NEGATIVE (NEGATIVE); PH,URINE 7 (5-9); PROTEIN,URINE 2+ (NEGATIVE); UROBILINOGEN,URINE NORMAL (NORMAL)
[2016-08-17] MEDS ORDERED: CATHETER FLUSH 10 ML SYR IV PRN (22:30)
[2016-08-17] MEDS ORDERED: NS 100 ML (IVPB) BAG IV ONE (22:30)
[2016-08-17] MEDS ORDERED: IOHEXOL 350 MG/ML 100 ML (OMNIPAQUE 350) VIAL IV ONE (22:30)
[2016-08-17 22:32] LABS: SQUAMOUS EPITHELIAL CELL,UR RARE /HPF; WBC,URINE RARE /HPF
--- NOTE | 2016-08-17 23:26 | Diagnostic Imaging Report ---
INDICATION: Fall COMPARISON: August 09, 2016 TECHNIQUE: Single frontal radiograph of the chest dated August 17, 2016 FINDINGS: The cardiac silhouette is enlarged, though stable. Prominence and tortuosity of the thoracic aorta is again identified, appearing similar to 2015. Improved aeration of the lungs when compared to the prior examination from August 09, 2016. No new focal pulmonary opacity. No pleural effusion. No pneumothorax. No acute osseous abnormality. IMPRESSION: Cardiomegaly without overt congestive heart failure or additional superimposed acute cardiopulmonary abnormality. Dictated by: Dictated on workstation # [id number]
[2016-08-18] MEDS ORDERED: PIPERACILLIN SODIUM/TAZOBACTAM 4.5 GM in NS (IVPB) 100 ML IV ONE (01:30)
[2016-08-18] MEDS ORDERED: ENOXAPARIN 100 MG/1 ML (LOVENOX) SYR SC ONE (01:30)
[2016-08-18] MEDS: NS IV 1000 ML 1,000 ML IV SCH ×3 (03:27→23:20)
[2016-08-18 04:00] VITALS: BP 141/80
[2016-08-18] MEDS ORDERED: RT-ALBUTEROL SULF 2.5 MG/3 ML PRE-MIX VIAL IH PRN (04:00)
[2016-08-18 05:41] LABS: BASOPHILS % (AUTO) 0 % (0-10); EOSINOPHILS # (AUTO) 0.1 10^3/uL (0.0-0.3); EOSINOPHILS % (AUTO) 1 % (0-10); LYMPHOCYTES # (AUTO) 1.8 X 10^3 (1.0-4.0); LYMPHOCYTES % (AUTO) 14 % (12-44); MEAN CORPUSCULAR HEMOGLOBIN 29 PG (25-34); MEAN CORPUSCULAR HGB CONC 33 G/DL (32-36); MEAN CORPUSCULAR VOLUME 90 FL (80-99); MONOCYTES # (AUTO) 1.6 X 10^3 (0.0-1.0); MONOCYTES % (AUTO) 12 % (0-12); NEUTROPHILS # (AUTO) 9.2 X 10^3 (1.8-7.8); NEUTROPHILS % (AUTO) 72 % (42-75); PLATELET COUNT 318 10^3/uL (130-400); RED BLOOD COUNT 4.13 10^6/uL (4.35-5.85); RED CELL DISTRIBUTION WIDTH 14.3 % (10.0-14.5); WHITE BLOOD COUNT 12.7 10^3/uL (4.3-11.0)
[2016-08-18] MEDS: PIPERACILLIN/TAZOBACTAM 4.5 GM/NS100 ML IVPB IV SCH ×6 (07:05→23:20)
[2016-08-18 07:51] VITALS: BP 163/86
--- NOTE | 2016-08-18 08:17 | Diagnostic Imaging Report ---
PROCEDURE: CT abdomen and pelvis with contrast. TECHNIQUE: Multiple contiguous axial images were obtained through the abdomen and pelvis after administration of intravenous contrast. INDICATION: Multiple falls. Exam compared with study 08/10/2016. FINDINGS: Subcutaneous infiltration in the left lower quadrant has improved from the prior. Some thickening of the inferior left lower quadrant abdominal wall redemonstrated. Bubbles of extraluminal gas in the left inguinal canal present on the prior have resolved in the interim. There is some redemonstration of infiltration of fat within a left inguinal hernia, no herniated viscus. Sigmoid colon shows diverticula but no evidence for acute colonic pathology. There was no bowel, biliary, or urinary tract obstruction. Chronic degenerative changes to the bilateral hips and SI joints stable. Lumbar spondylosis stable. No fracture could be identified. The lung bases nonacute. Low-density bilobed nodularity in the right inferior pulmonary hilum unchanged when compared with prior, 2.9 x 1.3 cm. Stable benign hepatic cyst unchanged. The gallbladder negative. There is some low-density thickening of the left adrenal gland likely some hyperplasia. This is stable. Spleen unremarkable. There is no abdominal/ pelvic intra-or retroperitoneal free fluid or hematoma. No free air. There are nonaneurysmal aortic atherosclerotic calcifications. Celiac ectasia unruptured, atherosclerotic, and stable. Some chronic renal cysts stable. There is no hydronephrosis. IMPRESSION: There is redemonstration of infiltration of the fat along the left inguinal hernia, however, resolution of regional extraluminal gas and improvements in subcutaneous infiltration. No findings of herniated viscus. Diverticulated but otherwise unremarkable and nonacute sigmoid colon. Stable hepatorenal cysts and left adrenal hyperplasia. Degenerative changes to the osseous structures without fracture. No obstructive features. Dictated by: Dictated on workstation # [id number]
[2016-08-18] MEDS ORDERED: ASPI-983 PO (08:20)
[2016-08-18] MEDS ORDERED: MULT-1042 PO (08:20)
--- NOTE | 2016-08-18 08:24 | Diagnostic Imaging Report ---
EXAMINATION: Bilateral lower extremity duplex venous ultrasound. TECHNIQUE: DVT protocol. Multiple sonographic images with color Doppler and waveform interrogation were performed of the lower extremity veins, bilaterally, with compression and augmentation maneuvers. INDICATION: Bilateral leg injury. Multiple falls. FINDINGS: The lower extremity veins from the common femoral veins to below the knee veins were examined with normal color-flow, compressibility and normal waveform demonstrated. The great saphenous vein bilaterally is patent. IMPRESSION: No evidence of DVT in either lower extremity. Dictated by: Dictated on workstation # [id number]
[2016-08-18] MEDS ORDERED: PRIM50TA PO (09:11)
[2016-08-18] MEDS ORDERED: TAMS0.4C2 PO (09:11)
--- NOTE | 2016-08-18 09:20 | Diagnostic Imaging Report ---
Ultrasound of the scrotum. INDICATION: History of multiple falls and abnormality seen in the left inguinal canal on CT scan. FINDINGS: The right testicle is 4.0 x 3.2 x 3.1 cm. The left testicle is 4.3 x 3.0 x 3.0 cm. Both testicles have fairly homogeneous echotexture of the parenchyma and symmetric flow. There is no focal mass seen. Normal color Doppler vascularity and arterial waveforms over the testicles are noted. The epididymis on both sides appear unremarkable. In the left inguinal region there is soft tissue thickening and increased vascularity noted. This involves an area measuring 5.0 x 1.6 x 10.0 cm. No significant fluid collection in the left inguinal canal around this area. There is however bilateral small hydrocele in the scrotum. The patient was not able to cooperate and perform Valsalva maneuver during the exam to assess for possible hernia. No bowel loops are seen within the inguinal canal. IMPRESSION: Prominent soft tissue thickening with hyperemia seen in the left inguinal region suggestive of an inflammatory or infectious process. The patient was not able to cooperate and perform Valsalva maneuver during this exam; therefore, assessment for hernia is limited. Dictated by: Dictated on workstation # [id number]
[2016-08-18] MEDS ORDERED: HYDROcodone/APAP 5 MG/325 MG (LORTAB) TAB PO PRN (10:15)
[2016-08-18] MEDS: ENOXAPARIN 40 MG/0.4 ML (LOVENOX) SYR SC SCH (10:17)
[2016-08-18] MEDS: PHENYTOIN 100 MG (DILANTIN) CAP PO SCH ×2 (10:18→20:48)
[2016-08-18] MEDS: SERTRALINE 100 MG (ZOLOFT) TAB PO SCH (10:18)
[2016-08-18] MEDS: ASPIRIN E.C. 81 MG (ECOTRIN) TAB PO SCH (10:18)
[2016-08-18] MEDS: LEVETIRACETAM 500 MG (KEPPRA) TAB PO SCH ×2 (10:18→20:48)
[2016-08-18] MEDS: RT-ALBUTEROL/IPRATROPIUM 3 ML (DUONEB) VIAL INH SCH ×3 (10:21→19:27)
--- NOTE | 2016-08-18 11:33 | Physical Therapy Evaluation ---
PT Evaluation-General Medical Diagnosis Admission Date Aug 18, 2016 at 02:21 Medical Diagnosis: fall/weakness Onset Date: Aug 18, 2016 Therapy Diagnosis Therapy Diagnosis: debility/weakness Height/Weight Height (Feet): 5 Height (Inches): 11.00 Weight (Pounds): 228 Weight (Ounces): 2.0 Precautions Precautions/Isolations: Standard Precautions Referral Physician: Mike Reason for Referral: Evaluation/Treatment Medical History Pertinent Medical History: CAD, COPD, CVA, Dementia, HTN Current History increase confusion and fall x 2 at [place] (patient uses cane and not FWW with mobility per patient report. patient does have FWW) Reviewed History: Yes Social History Home: Assisted Living Prior/Core FIM Prior Level of Function Functional [place] Measure 0=Not Assessed/NA 4=Minimal Assistance 1=Total Assistance 5=Supervision or Setup 2=Maximal Assistance 6=Modified [place] 3=Moderate Assistance 7=Complete [place] Bed Mobility: 5 Transfers (B,C,W/C) (FIM): 5 Gait: 5 PT Evaluation-Current Subjective Patient agrees to PT. No c/o at this time. Pain Numeric Pain Scale: 0-No Pain Location: No Pain Reported Objective Patient Orientation: Confused Problem Solving: Fair Attachments: IV ROM/Strength ROM Lower Extremities bilateral LE WNL Strenght Lower Extremities 4/5 gross bilateral LE all planes Integumentary/Posture Integumentary refer to nursing notes Bowel Incontinence: No Bladder Incontinence: No Posture hip flexed posture in FWW Neuromuscular (Tone, Coordination, Reflexes) noted essential tremors bilateral UE's Sensory Vision: Wears Glasses Hearing: Impaired Sensation Right Lower Extremit: Impaired Sensation Left Lower Extremity: Impaired Transfers Functional [place] Measure 0=Not Assessed/NA 4=Minimal Assistance 1=Total Assistance 5=Supervision or Setup 2=Maximal Assistance 6=Modified [place] 3=Moderate Assistance 7=Complete [place] Transfers (B, C, W/C) (FIM): 5 Scootin Sit to/from Stand: 5 Gait Mode of Locomotion: Walk Anticipated Mode of Locomotion: Walk Gait (FIM): 5 Distance (FIM): 3=150 ft Distance: 225' Gait Level of Assist: 5 Gait Assistive Device: FWW Comments/Gait Description safe and functional with FWW with no deviation Balance Sitting Static: Normal Sitting Dynamic: Normal Standing Static: Normal Standing Dynamic: Normal Assessment/Needs 76 y.o. male, will benefit from short term skilled PT to address functional strength and mobility to improve or ensure continuation of current LOF. Rehab Potential: Fair Post Rehab Potential-Barriers: compliance PT Senior Living Goals Senior Living Goals PT Senior Living Goals Time Frame: Aug 25, 2016 Transfers (B,C,W/C) (FIM): 6 Gait (FIM): 5 Gait distance (FIM): 3=150 ft Gait Level of Assist: 5 Gait Assistive Device: FWW PT Plan Problem List Problem List: Activity Tolerance Treatment/Plan Treatment Plan: Continue Plan of Care Treatment Plan: Education, Functional Activity Roberto, Functional Strength, Gait , Safety, Therapeutic Exercise, Transfers Treatment Duration: Aug 25, 2016 Frequency: 6 times per week Estimated Hrs Per Day: .5 hour per day (or PRN) Patient and/or Family Agrees t: Yes Safety Risks/Education Patient Education: Safety Issues (using FWW vs cane) Discharge Recommendations Therapy D/C Recommendations: Assisted Living, [facility] Placement Time/GCodes Time In: 1100 Time Out: 1115 Total Billed Treatment Time: 15 Total Billed Treatment 1 visit EVLow 15 min G Codes Necessary: TANG Bach PT Aug 18, 2016 11:33
[2016-08-18 12:00] VITALS: BP 138/72
--- NOTE | 2016-08-18 13:14 | History & Physical ---
History of Present Illness History of Present Illness Reason for visit/HPI 76 yo M admitted overnight for 2 falls at [facility]- one was because he did not wait for help getting up and tripped on his oxygen tubing. The second fall- a little unclear on events- This am though pt's son said his dad was more confused overnight and that he was acting like he was post-ictal from a seizure. No known head trauma. Review of pt's medication chart from [facility] note pt was getting haldol scheduled instead of prn- this would increase his fall risk. I have corrected it to prn. Of note, Pt was admitted last week for acute onset weakness and abdominal pain. He did undergo left inguinal hernia repair 08/08/[address] Zhu due to acute incarceration. Previous and current evaluations demonstrate within normal limits of healing. Pt was admitted for further evaluation. Date of Admission Aug 18, 2016 at 02:21 Date Seen by Provider: Aug 18, 2016 Time Seen by Provider: 08:00 I consulted on this patient on 08/18/16 13:00 Attending Physician Oliver Wagner MD Admitting Physician Oliver Wagner MD Consult Allergies and Home Medications Allergies Coded Allergies: No Known Drug Allergies (Unverified , 02/24/14) Home Medications Acetaminophen 500 Mg Tablet, 500-1,000 MG PO HS PRN for PAIN-MILD, (Reported) Aspirin 81 Mg Tablet.dr, 81 MG PO DAILY, (Reported) Haloperidol 2 Mg Tablet, 2 MG PO 1200 PRN for MOOD, (Reported) Hydrocodone/Acetaminophen 1 Each Tablet, 1 TAB PO Q8H PRN for PAIN-MODERATE, ( Reported) Levetiracetam 500 Mg Tablet, 500 MG PO BID, (Reported) Losartan Potassium 50 Mg Tablet, 100 MG PO DAILY for 30 Days, #30 Ref 11 Prescribed by: OLIVER WAGNER on 08/20/16 0930 Montelukast Sodium 10 Mg Tablet, 10 MG PO DAILY, (Reported) Multivit-Min/Iron Fum/Folic AC 1 Each Tablet, 1 TAB PO HS, (Reported) [place] 3 Polyunsat Fatty Acids 1,000 Mg Cap, 1,000 MG PO DAILY, (Reported) Phenytoin Sodium Extended 100 Mg Capsule, 200 MG PO BID, (Reported) TAKES 2 (100MG) CAPSULES Primidone 50 Mg Tablet, 50 MG PO HS, (Reported) Sertraline HCl 100 Mg Tablet, 100 MG PO DAILY, (Reported) Tamsulosin HCl 0.4 Mg Cap.er.24h, 0.4 MG PO 1800, (Reported) Past Zxgcdan-Pirzvu-Aupzzt Hx Patient Social History Marrital Status: Alcohol Use: Denies Use Recreational Drug Use: No Smoking Status: Former Smoker Former smoker/When Quit: Feb 14, 2011 Type Used: Pipe 2nd Hand Smoke Exposure: No Physical Abuse Screen: No Sexual Abuse: No Recent Foreign Travel: No Contact w/other who traveled: No Recent Hopitalizations: Yes Recent Infectious Disease Expo: No Immunizations Up To Date Tetanus Booster (TDap): Less than 5yrs Date of Pneumonia Vaccine: June 10, 2012 Seasonal Allergies Seasonal Allergies: No Surgeries HX Surgeries: Yes (BOOP-LUNG SURGERY, CATARACTS, DETACHED RETINA) Surgeries: Coronary Stent, Eye Surgery, Tonsillectomy Respiratory Hx Respiratory Disorders: Yes Cardiovascular Hx Cardiovascular Disorders: Yes (STENT) Cardiac Disorders: Coronary Artery Disease, Hypertension Neurological Hx Neurological Disorders: Yes Neurological Disorders: Dementia, Seizure Disorder, Stroke Reproductive System Hx Reproductive Disorders: No Sexually Transmitted Disease: No HIV/AIDS: No Genitourinary Hx Genitourinary Disorders: Yes (pt admits to trouble urinating for years) Gastrointestinal Hx Gastrointestinal Disorders: No Gastrointestinal Disorders: Hiatal Hernia Musculoskeletal Hx Musculoskeletal Disorders: No Endocrine Hx Endocrine Disorders: No HEENT HX ENT Disorders: Yes (DETACHED RETINA HX, vision deficits from stroke) HEENT Disorders: Cataract, Eye Injury Loss of Vision: Bilateral Hearing Impairment: Hard of Hearing Cancer Hx Cancer: No Psychosocial Hx Psychiatric Problems: Yes Behavioral Health Disorders: Depression Integumentary HX Skin/Integumentary Disorder: Yes Skin/Integumentary Disorders: Psoriasis Blood Transfusions Hx Blood Disorders: No Adverse Reaction to a Blood Tr: No Family Medical History Significant Family History: CAD Over 55 Years Old Family Hx: Cardiovascular disease 19 FATHER, Onset:Unknown Cataracts 19 MOTHER, Onset:Unknown FH: stomach cancer 19 MOTHER, Onset:Unknown Glaucoma 19 MOTHER, Onset:Unknown Review of Systems Review of Systems General: No Chills, No Night Sweats HEENT: No Head Aches, No Visual Changes Pulmonary: Dyspnea, Cough Cardiovascular: No: Chest Pain, Orthopnea, Palpitations Gastrointestinal: Abdominal Pain, No: Nausea, Vomiting Genitourinary: No Dysuria, Frequency, Retention Musculoskeletal: back pain Neurological: Confusion, Seizures, Weakness All Other Systems Reviewed All Other Systems Reviewed: Yes (Negative excepted noted.) Physical Exam Vital Signs Vital Sign - Last 12Hours 08/17/16 08/18/16 20:34 02:45 Temp 99.2 Pulse 114 Resp 18 B/P (MAP) 164/93 Pulse Ox 94 O2 Delivery Room Air O2 Flow Rate 3.00 Capillary Refill : Less Than 3 Seconds General Appearance: No Apparent Distress, WD/WN HEENT: PERRL/EOMI Respiratory: Chest Non Tender, Lungs Clear, Normal Breath Sounds Cardiovascular: Regular Rate, Rhythm, No Murmur Gastrointestinal: Normal Bowel Sounds, Non Tender, Soft Rectal: Deferred Genital/Rectal: Other (edema of scrotum, penis) Back: No CVA Tenderness, No Vertebral Tenderness Extremity: Non Tender, No Calf Tenderness Neurologic/Psychiatric: Alert, No Motor/Sensory Deficits, Normal Mood/Affect ( for him- a little grumpy) Skin: Warm/Dry Lymphatic: No Adenopathy Assessment/Plan Assessment/Plan Assessment/Plan 76 yo M Frequent falls- multifactorial weakness, environmental, medications(pt was getting PRN haldol scheduled dosing), h/o seizures- will monitor and have PT work with pt. Left inguinal hernia- s/p reduction of incarceration 08/08/[address] Zhu -post op changes noted on CT- improving -scrotal U/S pending -Dr Zhu consulted elevated DDimer- LE u/s negative for DVT- lovenox 40mg dvt ppx. Leukocytosis- trending down urinary retention- did follow with Dr. Ledezma- pt has declined cystoscopy/ intervention - alfuzosin restarted- IVF- - pt urinated without difficulty this AM h/o seizures- will continue dilantin 100mg, keppra 500mg- possible had a seizure at [facility]- given AMS, confusion and elevated WBC now trending down. Will monitor inpt- COPD- at baseline- on 2L oxygen, follows with Dr. Cornejo as outpt- Was fired from [facility] due to his poor effort and verbally abusing staff- hard of hearing- hearing aids Depression- continue home meds CAD- denies chest pain HTN- monitoring- resume losartan tomorrow- as pt had CT w/ contrast. h/o stroke- stable weakness- PT Dispo: monitor today- stop zosyn (will wait until Dr. Zhu sees pt- I do not think he has a bacterial infection) rechecking labs in AM- if wbc trending down and no new issues develop- pt can continue PT at [facility] would like him to have a hospital bed as he will not sleep in the bed at [facility]. (odd request). Problems: Clinical Quality Measures DVT/VTE Risk/Contraindication: Risk Factor Score Per Nursin RFS Level Per Nursing on Admit: 4+=Very High OLIVER WAGNER MD Aug 18, 2016 13:14
--- NOTE | 2016-08-18 13:54 | Progress Note ---
Subjective Time Seen by Provider: 13:44 Subjective/Events-last exam Pt seen and examined. States he is not as sore as he was. In ER complained of swelling into penis and scrotum with pain. Review of Systems General: No Chills, No Night Sweats Cardiovascular: No: Chest Pain Neurological: No: Incoordination, Weakness Objective Exam Vital Signs Date Time Temp Pulse Resp B/P (MAP) Pulse Ox O2 Delivery O2 Flow Rate FiO2 08/18/16 12:00 97.1 82 20 138/72 99 Room Air 08/18/16 10:25 93 Room Air 08/18/16 07:51 97.6 81 20 163/86 90 Room Air 08/18/16 04:00 98.0 96 20 141/80 94 Room Air 08/18/16 03:50 95 08/18/16 02:49 94 Room Air 08/18/16 02:45 98.0 100 18 95 Nasal Cannula 3.00 08/17/16 20:34 99.2 114 18 164/93 94 Room Air I & O 08/18/16 07:00 Intake Total 1350 ml Output Total 150 ml Balance 1200 ml Capillary Refill : Less Than 3 Seconds General Appearance: No Apparent Distress, WD/WN Gastrointestinal: other (incision is c/d/I, no erythema. Moderate swelling in penis and scrotum) Results Lab Laboratory Tests 08/17/16 21:08: White Blood Count 18.2H, Red Blood Count 4.59, Hemoglobin 13.4, Hematocrit 41, Mean Corpuscular Volume 89, Mean Corpuscular Hemoglobin 29, Mean Corpuscular Hemoglobin Concent 33, Red Cell Distribution Width 14.3, Platelet Count 375, Mean Platelet Volume 9.7, Neutrophils (%) (Auto) 78H, Lymphocytes (%) (Auto) 9L , Monocytes (%) (Auto) 13H, Eosinophils (%) (Auto) 0, Basophils (%) (Auto) 0, Neutrophils # (Auto) 14.1H, Lymphocytes # (Auto) 1.7, Monocytes # (Auto) 2.3H, Eosinophils # (Auto) 0.1, Basophils # (Auto) 0.0, Neutrophils % (Manual) 81, Lymphocytes % (Manual) 8, Monocytes % (Manual) 6, Eosinophils % (Manual) 0, Basophils % (Manual) 0, Band Neutrophils 1, Reactive Lymphocytes 4, Polychromasia SLIGHT, Anisocytosis SLIGHT, D-Dimer 2.76H, Sodium Level 135, Potassium Level 3.8, Chloride Level 98, Carbon Dioxide Level 23, Anion Gap 14, Blood Urea Nitrogen 10, Creatinine 0.71, Estimat Glomerular Filtration Rate > 60 , BUN/Creatinine Ratio 14, Glucose Level 131H, Calcium Level 9.3, Magnesium Level 2.1, Total Bilirubin 0.6, Aspartate Amino Transf (AST/SGOT) 24, Alanine Aminotransferase (ALT/SGPT) 26, Alkaline Phosphatase 122, Total Protein 8.0, Albumin 4.0 08/17/16 22:10: Urine Color YELLOW, Urine Clarity CLEAR, Urine pH 7, Urine Specific Petty 1.010L, Urine Protein 2+H, Urine Glucose (UA) NEGATIVE, Urine Ketones NEGATIVE, Urine Nitrite NEGATIVE, Urine Bilirubin NEGATIVE, Urine Urobilinogen NORMAL, Urine Leukocyte Esterase NEGATIVE, Urine RBC (Auto) 1+H, Urine RBC 0-2, Urine WBC RARE, Urine Squamous Epithelial Cells RARE, Urine Crystals NONE, Urine Bacteria NEGATIVE, Urine Casts NONE, Urine Mucus SMALLH, Urine Culture Indicated NO 08/17/16 23:43: Lactic Acid Level 0.72 08/18/16 05:30: White Blood Count 12.7H, Red Blood Count 4.13L, Hemoglobin 12.1L, Hematocrit 37L , Mean Corpuscular Volume 90, Mean Corpuscular Hemoglobin 29, Mean Corpuscular Hemoglobin Concent 33, Red Cell Distribution Width 14.3, Platelet Count 318, Mean Platelet Volume 9.0, Neutrophils (%) (Auto) 72, Lymphocytes (%) (Auto) 14, Monocytes (%) (Auto) 12, Eosinophils (%) (Auto) 1, Basophils (%) (Auto) 0, Neutrophils # (Auto) 9.2H, Lymphocytes # (Auto) 1.8, Monocytes # (Auto) 1.6H, Eosinophils # (Auto) 0.1, Basophils # (Auto) 0.0 08/18/16 11:03: Glucometer 133H Assessment/Plan Assessment/Plan Assessment/Plan Post-Op LIH No signs of infection, all of this is normal post-op swelling. Went over radiology report. Looked at CT- appears to be improving compared to old one. No surgical care needed. Can try elevating scrotum and penis. Will sign off. Clinical Quality Measures DVT/VTE Risk/Contraindication: Risk Factor Score Per Nursin RFS Level Per Nursing on Admit: 4+=Very High RACHEL KEATING DO Aug 18, 2016 13:54
[2016-08-18 15:55] VITALS: BP 159/76
[2016-08-18] MEDS: ALFUZOSIN HCL 10 MG TAB (UROXATRAL) PO SCH (17:39)
[2016-08-18 19:05] VITALS: BP 146/64
[2016-08-18] MEDS: MONTELUKAST 10 MG (SINGULAIR) TAB PO SCH (20:48)
[2016-08-18] MEDS: PRIMIDONE 50 MG TAB (MYSOLINE) PO SCH (20:48)
[2016-08-19 00:15] VITALS: BP 137/76
[2016-08-19 03:27] VITALS: BP 153/85
[2016-08-19 05:04] LABS: BASOPHILS % (AUTO) 0 % (0-10); EOSINOPHILS # (AUTO) 0.2 10^3/uL (0.0-0.3); EOSINOPHILS % (AUTO) 2 % (0-10); LYMPHOCYTES # (AUTO) 1.8 X 10^3 (1.0-4.0); LYMPHOCYTES % (AUTO) 20 % (12-44); MEAN CORPUSCULAR HEMOGLOBIN 29 PG (25-34); MEAN CORPUSCULAR HGB CONC 32 G/DL (32-36); MEAN CORPUSCULAR VOLUME 91 FL (80-99); MEAN PLATELET VOLUME 9.3 FL (7.4-10.4); MONOCYTES % (AUTO) 12 % (0-12); NEUTROPHILS # (AUTO) 5.7 X 10^3 (1.8-7.8); NEUTROPHILS % (AUTO) 66 % (42-75); PLATELET COUNT 269 10^3/uL (130-400); RED BLOOD COUNT 3.82 10^6/uL (4.35-5.85); RED CELL DISTRIBUTION WIDTH 14.5 % (10.0-14.5); WHITE BLOOD COUNT 8.6 10^3/uL (4.3-11.0)
[2016-08-19 05:19] LABS: ALBUMIN 3.3 GM/DL (3.2-4.5); ANION GAP 11 MMOL/L (5-14); BLOOD UREA NITROGEN 9 MG/DL (7-18); BUN/CREATININE RATIO 15; CALCIUM 8.2 MG/DL (8.5-10.1); CARBON DIOXIDE 23 MMOL/L (21-32); CHLORIDE 106 MMOL/L (98-107); CREATININE SERUM 0.61 MG/DL (0.60-1.30); GFR ESTIMATED > 60; GLUCOSE 103 MG/DL (70-105); PHOSPHORUS 3.3 MG/DL (2.3-4.7); POTASSIUM 2.9 MMOL/L (3.6-5.0); SODIUM 140 MMOL/L (135-145)
[2016-08-19] MEDS: PIPERACILLIN/TAZOBACTAM 4.5 GM/NS100 ML IVPB IV SCH ×2 (06:42)
[2016-08-19] MEDS ORDERED: KCL 20 MEQ TAB (K-DUR) PO NR ×2 (07:30→14:30)
[2016-08-19] MEDS: RT-ALBUTEROL/IPRATROPIUM 3 ML (DUONEB) VIAL INH SCH ×3 (07:41→20:23)
[2016-08-19 08:00] VITALS: BP 143/94
[2016-08-19] MEDS: SERTRALINE 100 MG (ZOLOFT) TAB PO SCH (08:06)
[2016-08-19] MEDS: PHENYTOIN 100 MG (DILANTIN) CAP PO SCH ×2 (08:06→21:42)
[2016-08-19] MEDS: ASPIRIN E.C. 81 MG (ECOTRIN) TAB PO SCH (08:06)
[2016-08-19] MEDS: LEVETIRACETAM 500 MG (KEPPRA) TAB PO SCH ×2 (08:06→21:43)
[2016-08-19] MEDS: ENOXAPARIN 40 MG/0.4 ML (LOVENOX) SYR SC SCH (08:07)
--- NOTE | 2016-08-19 09:13 | Progress Note (SOAP) ---
Subjective Subjective Date Seen by Provider: Aug 19, 2016 Time Seen by Provider: 08:00 76 yo M with multiple falls noted to have scrotal/penile edema and elevated d- dimer on admission- no overnight events. Pt upset this AM because he could not eat his breakfast without any denture paste. Pt urinated last night 200cc. This AM was straight cathed for discomfort getting another 200+ cc urine. Pt did participate with PT this AM. Review of Systems General: No Chills, No Night Sweats Cardiovascular: No: Chest Pain Neurological: No: Incoordination, Weakness All Other Systems Reviewed All Other Systems Reviewed: Yes (Negative excepted noted.) Objective Exam Vital Signs Vital Sign - Last 12Hours 08/17/16 08/18/16 20:34 02:45 Temp 99.2 Pulse 114 Resp 18 B/P (MAP) 164/93 Pulse Ox 94 O2 Delivery Room Air O2 Flow Rate 3.00 Capillary Refill : Less Than 3 Seconds 08/19/2016 Temp 97F Resp 20 167/86 oxygen sat 94% room air pulse 90s General Appearance: No Apparent Distress, WD/WN HEENT: PERRL/EOMI Neck: Non Tender, Supple Respiratory: Chest Non Tender, Lungs Clear, Normal Breath Sounds, No Accessory Muscle Use, No Respiratory Distress Cardiovascular: Regular Rate, Rhythm, No Murmur Gastrointestinal: Normal Bowel Sounds, Non Tender, Soft Rectal: Deferred Genital/Rectal: Other (edema/swelling redness of scrotum, penis) Back: No CVA Tenderness, No Vertebral Tenderness Extremity: Normal Range of Motion, Non Tender, No Calf Tenderness Neurologic/Psychiatric: Alert Skin: Normal Color, Warm/Dry Results Lab Laboratory Tests 08/18/16 11:03: Glucometer 133H 08/19/16 04:37: White Blood Count 8.6, Red Blood Count 3.82L, Hemoglobin 11.1L, Hematocrit 35L, Mean Corpuscular Volume 91, Mean Corpuscular Hemoglobin 29, Mean Corpuscular Hemoglobin Concent 32, Red Cell Distribution Width 14.5, Platelet Count 269, Mean Platelet Volume 9.3, Neutrophils (%) (Auto) 66, Lymphocytes (%) (Auto) 20, Monocytes (%) (Auto) 12, Eosinophils (%) (Auto) 2, Basophils (%) (Auto) 0, Neutrophils # (Auto) 5.7, Lymphocytes # (Auto) 1.8, Monocytes # (Auto) 1.0, Eosinophils # (Auto) 0.2, Basophils # (Auto) 0.0, Sodium Level 140, Potassium Level 2.9L, Chloride Level 106, Carbon Dioxide Level 23, Anion Gap 11, Blood Urea Nitrogen 9, Creatinine 0.61, Estimat Glomerular Filtration Rate > 60, BUN/ Creatinine Ratio 15, Glucose Level 103, Calcium Level 8.2L, Phosphorus Level 3.3 , Albumin 3.3 Microbiology 08/17/16 Blood Culture - Preliminary, Resulted No growth Assessment/Plan Assessment/Plan Assessment/Plan 76 yo M Frequent falls- multifactorial weakness, environmental, medications(pt was getting PRN haldol scheduled dosing), h/o seizures- will monitor and have [facility] work with PT. Left inguinal hernia- s/p reduction of incarceration 08/08/[address] Zhu -post op changes noted on CT- improving -scrotal U/S edema -Dr Zhu consulted - signed off - normal post op eval. elevated DDimer- LE u/s negative for DVT- lovenox 40mg dvt ppx. Scrotal Edema- elevate, cool compresses. Leukocytosis- trending down urinary retention- did follow with Dr. Ledezma- pt has declined cystoscopy/ intervention - alfuzosin restarted- IVF- - continue to monitor h/o seizures- will continue dilantin 100mg, keppra 500mg- possible had a seizure at [facility]- given AMS, confusion and elevated WBC now trending down. Will monitor inpt- COPD- at baseline- on 2L oxygen, follows with Dr. Cornejo as outpt- Was fired from [facility] due to his poor effort and verbally abusing staff- hard of hearing- hearing aids Depression- continue home meds CAD- denies chest pain HTN- monitoring- resume losartan prior to discharge h/o stroke- stable weakness- PT hypokalemia- replacing. Dispo: d/c zosyn will monitor status today as well as urinary retention - if doing alright tomorrow plan to d/c and pt can continue PT at [facility]- need to get the swelling/edema reduced with is scrotum and penis as it is making urinating difficult. Replacing potassium as well. would like him to have a hospital bed as he will not sleep in the bed at [facility]. (odd request). - pt likely does not qualify. Problems: Clinical Quality Measures DVT/VTE Risk/Contraindication: Risk Factor Score Per Nursin RFS Level Per Nursing on Admit: 4+=Very High BRYANT WAGNER MD Aug 19, 2016 09:13
--- NOTE | 2016-08-19 09:26 | Physical Therapy Daily Note ---
PT Daily Note-Current Subjective Patient is agitated this a.m. but agrees to PT. Pain Numeric Pain Scale: 5-Moderate Pain Location: Soft Tissue Location Body Site: Genital Mental Status Patient Orientation: Confused Attachments: IV Transfers Functional [place] Measure 0=Not Assessed/NA 4=Minimal Assistance 1=Total Assistance 5=Supervision or Setup 2=Maximal Assistance 6=Modified [place] 3=Moderate Assistance 7=Complete IndependenceIRFPAI Quality Coding Scale 6 Independent with activity with or without an assistive device 5 Patient requires set up or clean up by helper. Patient completes activity by themselves 4 Supervision or touching assist (CGA). [place] provide cues , steadying assist 3 The helper provides less than half the effort to complete the activity 2 The helper provides more than half the effort to complete the activity 1 Dependent. The helper does all the effort to complete an activity 7 Patient refused to complete or attempt activity 9 The patient did not perform the activity before the current illness or injury 88 Not attempted due to Medical conditions or safety concerns Transfers (B, C, W/C) (FIM): 5 Scootin Sit to/from Stand: 5 Gait Training Gait (FIM): 5 Distance (FIM): 3=150 ft Distance: 250' Gait Level of Assist: 5 Gait Assistive Device: FWW slow, extended UE's with cues for body placement with FWW Exercises Seated Therapy Exercises: Ankle pumps, Long arc quads, Hip flexion Seated Reps: 15 Assessment Patient continues to be very agitated due to inability to urinate. Gait and exercises utilized to facilitate improvement in functional mobility. Patient instructed to use FWW when he returns to [place]. He voices understanding. PT Intermediate Goals Intermediate Goals PT Interactive Multimedia Designer Goals Time Frame: Aug 25, 2016 Transfers (B,C,W/C) (FIM): 6 Gait (FIM): 5 Gait distance (FIM): 3=150 ft Gait Level of Assist: 5 Gait Assistive Device: FWW PT Plan Treatment/Plan Treatment Plan: Continue Plan of Care Treatment Plan: Education, Functional Activity Roberto, Functional Strength, Gait , Safety, Therapeutic Exercise, Transfers Treatment Duration: Aug 25, 2016 Frequency: 6 times per week Estimated Hrs Per Day: .5 hour per day (or PRN) Patient and/or Family Agrees t: Yes Safety Risks/Education Patient Education: Safety Issues Teaching Recipient: Patient Teaching Methods: Discussion Response to Teaching: Verbalize Understanding Time/GCodes Time In: 850 Time Out: 915 Total Billed Treatment Time: 25 Total Billed Treatment 1 visit EX 10 min GT 15 min TANG [id number] PT Aug 19, 2016 09:26
[2016-08-19] MEDS: MAGNESIUM OXIDE (MAG-OX)400 MG TAB PO SCH ×2 (09:29→17:25)
[2016-08-19] MEDS: POTASSIUM CL 10MEQ/50ML IVPB 50 ML IV SCH ×4 (09:29→12:42)
[2016-08-19 11:51] VITALS: BP_SYST 132; BP_SYST 172; BP_DIAS 88; BP_DIAS 99
[2016-08-19 15:38] VITALS: BP 159/78
--- OUTSIDE RECORDS SUMMARY | 2016-08-19 16:30 | XMS REPORT | Continuity of Care Document ---
Author Author [facility] Organization [facility] Address Unknown Phone Unavailable Allergies Active Description Code Type Severity Reaction Onset Reported/Identified Relationship to Patient Clinical Status Yes NKDA NKDA Mild N/A 11/13/2008 Yes No Known Drug Allergies [id number] Drug Allergy Unknown N/ A 02/24/2014 Medications [...] INTRACTABLE 06/26/2011 Ot 414.01 CORONARY ATHEROSCLEROSIS OF [place] CORON 06/26/2011 Ot 458.9 HYPOTENSION NOS 06/26/2011 [...] NOS 06/28/2011 Ot 414.01 CORONARY ATHEROSCLEROSIS OF [place] CORON 06/28/2011 Ot 438.7 DISTURBANCES OF VISION [...] ESTES MD Ot 414.01 CORONARY ATHEROSCLEROSIS OF [place] CORON 06/12/2012 KALPANA ESTES MD Ot 438.89 OTH LATE EFFECT-CEREBROVASCULAR DISEASE 06/12/2012 KALPANA ESTES MD Ot 486 PNEUMONIA, ORGANISM NOS 06/12/2012 KALPANA ESTES MD Ot 496 CHR AIRWAY OBSTRUCT NEC 06/12/2012 KALPANA ESTES MD Ot 518.0 PULMONARY COLLAPSE 06/12/2012 KALPANA ESTES MD Ot 781.99 NERV/MUSCULOSKEL SYS SYMP NEC 06/12/2012 KALPANA ESTES MD Ot V03.82 PROPHYLACTIC VACC AGAINST STREPTOCOCCUS 06/12/2012 KALPANA ETSES MD Ot V15.82 HISTORY OF TOBACCO USE [...] ESTES MD Ot 414.01 CORONARY ATHEROSCLEROSIS OF [place] CORON 02/24/2014 KALPANA ESTES MD Ot 496 [...] MASS INDEX 31.0-31.9, ADULT 07/17/2014 PAUL MCQUEEN DESKTOP SUPPORT CONSULTANT Ot 780.79 OTH MALAISE FATIGUE 07/17/2014 PAUL MCQUEEN DESKTOP SUPPORT CONSULTANT Ot 787.01 NAUSEA WITH VOMITING 08/02/2014 KALPANA [...] MD Ot I25.10 ATHSCL HEART DISEASE OF [place] CORONARY 02/14/2015 KESHAV DERAS MD Ot 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 02/14/2015 KESHAV DERAS MD Ot I69.398 OTHER SEQUELAE OF CEREBRAL INFARCTION 02/14/2015 KESHAV DERAS MD Ot I70.201 UNSP ATHSCL [place] ARTERIES OF [facility] 02/14/2015 KESHAV DERAS MD Ot R94.39 ABNORMAL RESULT OF OTHER CARDIOVASCULAR 02/14/2015 KESHAV DERAS MD Ot Z79.899 OTHER [facility] (CURRENT) DRUG THERAPY 02/14/2015 KESHAV DERAS MD [...] 433.10 03/20/2015 Ot 434.91 03/20/2015 MEERA BROWN, [facility] Ot 550.90 03/20/2015 MEERA BROWN, [facility] Ot 562.10 03/20/2015 MEERA BROWN, [facility] Ot 780.93 03/20/2015 MEERA BROWN, [facility] Ot 786.2 03/20/2015 MEERA BROWN, [facility] Ot 345.90 03/20/2015 MEERA BROWN, [facility] Ot 780.79 03/20/2015 MEERA BROWN, [facility] Ot 959.01 03/20/2015 MEERA BROWN, [facility] Ot E849.0 03/20/2015 MEERA BROWN, [facility] Ot E888.9 03/20/2015 MEERA BROWN, [facility] Ot R06.00 03/20/2015 MEERA BROWN, [facility] Ot R10.11 03/20/2015 MEERA BROWN, [facility] Ot R11.0 03/20/2015 MEERA BROWN, KALPANA J Ot R12 03/20/2015 MEERA BROWN, [facility] Ot R53.1 03/20/2015 BRAEDEN BROWN, KESHAV Mcdermott [...] DO Ot I25.10 ATHSCL HEART DISEASE OF [place] CORONARY 07/08/2015 SUNNI JENNINGS DO Ot R40.0 [...] Ot E849.0 ACCIDENT IN HOME 09/12/2015 KALPANA ESTSE MD Ot E888.9 FALL NOS 09/12/2015 KALPANA [...] MD Ot I25.10 ATHSCL HEART DISEASE OF [place] CORONARY 01/29/2016 BRYANT WAGNER MD Ot I50.9 [...] Z23 ENCOUNTER FOR IMMUNIZATION 01/29/2016 BRYANT WAGNER MD, Ot Z87.891 PERSONAL HISTORY OF NICOTINE DEPENDENCE 01/29/2016 BRYANT WAGNER MD Ot Z95.5 PRESENCE OF CORONARY ANGIOPLASTY IMPLANT 01/29/2016 BRYANT WAGNER MD Ot Z99.81 DEPENDENCE ON SUPPLEMENTAL OXYGEN 03/04/2016 SATNOSH KINSEY APRN Ot R06.02 SHORTNESS OF BREATH 03/04/2016 SANTOSH KINSEY APRN Ot R06.02 SHORTNESS OF BREATH 04/02/2016 SANTOSH KINSEY APRN Ot R06.02 SHORTNESS OF BREATH 04/10/2016 SANTOSH KINSEY APRN Ot R06.02 SHORTNESS OF BREATH 06/01/2016 SANTOSH KINSEY APRN Ot R06.02 SHORTNESS OF BREATH 08/08/2016 RACHEL KEATING DO Ot 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 08/08/2016 RACHEL KEATING DO Ot F03.90 UNSPECIFIED DEMENTIA 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L 08/08/2016 RACHEL KEATING DO Ot F32.9 MAJOR DEPRESSIVE DISORDER, SINGLE EPISOD 08/08/2016 RACHEL KEATING DO Ot G40.909 EPILEPSY, UNSP, NOT INTRACTABLE, WITHOUT 08/08/2016 RACHEL KEATING DO Ot I10 ESSENTIAL (PRIMARY) HYPERTENSION 08/08/2016 RACHEL KEATING DO Ot I25.10 ATHSCL HEART DISEASE OF [place] CORONARY 08/08/2016 RACHEL KEATING DO Ot 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, W OBST, W/O GANGR, 08/08/2016 RACHEL KEATING DO Ot Z79.899 OTHER LEGAL EDITOR (CURRENT) DRUG THERAPY 08/08/2016 RACHEL KEATING DO Ot Z95.5 PRESENCE OF CORONARY ANGIOPLASTY IMPLANT 08/11/2016 RACHEL KEATING DO Ot 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 08/11/2016 RACHEL KEATING DO Ot F03.90 UNSPECIFIED DEMENTIA 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L 08/11/2016 RACHEL KEATING DO Ot F32.9 MAJOR DEPRESSIVE DISORDER, SINGLE EPISOD 08/11/2016 RACHEL KEATING DO Ot G40.909 EPILEPSY, UNSP, NOT INTRACTABLE, WITHOUT 08/11/2016 RACHEL KEATING DO Ot I10 ESSENTIAL (PRIMARY) HYPERTENSION 08/11/2016 RACHEL KEATING DO Ot I25.10 ATHSCL HEART DISEASE OF [place] CORONARY 08/11/2016 RACHEL KEATING DO Ot 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, W OBST, W/O GANGR, 08/11/2016 RACHEL KEATING DO Ot Z79.899 OTHER [facility] (CURRENT) DRUG THERAPY 08/11/2016 RACHEL KEATING DO Ot Z95.5 PRESENCE OF CORONARY ANGIOPLASTY IMPLANT 08/11/2016 RACHEL KEATING DO Ot E87.6 HYPOKALEMIA 08/11/2016 RACHEL KEATING DO Ot F03.90 UNSPECIFIED DEMENTIA 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L 08/11/2016 RACHEL KEATING DO Ot F32.9 MAJOR DEPRESSIVE DISORDER, SINGLE EPISOD 08/11/2016 RACHEL KEATING DO Ot G20 PARKINSON'S DISEASE 08/11/2016 RACHEL KEATING DO Ot G40.909 EPILEPSY, UNSP, NOT INTRACTABLE, WITHOUT 08/11/2016 RACHEL KEATING DO Ot I10 ESSENTIAL (PRIMARY) HYPERTENSION 08/11/2016 RACHEL KEATING DO Ot I25.10 ATHSCL HEART DISEASE OF [place] CORONARY 08/11/2016 RACHEL KEATING DO Ot I69.398 OTHER SEQUELAE OF CEREBRAL INFARCTION 08/11/2016 RACHEL KEATING DO Ot J44.9 CHRONIC OBSTRUCTIVE PULMONARY DISEASE, U 08/11/2016 RACHEL KEATING DO Ot L40.9 PSORIASIS, UNSPECIFIED 08/11/2016 RACHEL KEATING DO Ot R33.9 RETENTION OF URINE, UNSPECIFIED 08/11/2016 RACHEL KEATING DO Ot R53.1 WEAKNESS 08/11/2016 RACHEL KEATING DO Ot Z87.891 PERSONAL HISTORY OF NICOTINE DEPENDENCE 08/11/2016 RACHEL KEATING DO Ot Z95.5 PRESENCE OF CORONARY ANGIOPLASTY IMPLANT 08/15/2016 RACHEL KEATING DO Ot 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 08/15/2016 RACHEL KEATING DO Ot F03.90 UNSPECIFIED DEMENTIA 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L 08/15/2016 RACHEL KEATING DO Ot F32.9 MAJOR DEPRESSIVE DISORDER, SINGLE EPISOD 08/15/2016 RACHEL KEATING DO Ot G40.909 EPILEPSY, UNSP, NOT INTRACTABLE, WITHOUT 08/15/2016 RACHEL KEATING DO Ot I10 ESSENTIAL (PRIMARY) HYPERTENSION 08/15/2016 RACHEL KEATING DO Ot I25.10 ATHSCL HEART DISEASE OF [place] CORONARY 08/15/2016 RACHEL KAETING DO Ot 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, W OBST, W/O GANGR, 08/15/2016 RACHEL KEATING DO Ot Z79.899 OTHER LEGAL EDITOR (CURRENT) DRUG THERAPY 08/15/2016 RACHEL KEATING DO Ot Z95.5 PRESENCE OF CORONARY ANGIOPLASTY IMPLANT Procedures Code Description Performed By Performed On 81.92 INJECTION INTO JOINT 06/25/2011 99.23 INJECT STEROID 03.31 SPINAL TAP 2014 Encounters ACCT No. Visit Date/Time Discharge Status Pt. Type Provider Facility Loc./Unit Complaint [id number] 08/10/2016 02:10:00 2016 16:40:00 DIS Outpatient RACHEL KEATING DO [facility] 4TH DIVERTICULITIS, SIGMOID FATIGUE NEUROSIS [id number] 08/08/2016 12:32:00 2016 16:53:00 DIS Outpatient RACHEL KEATING DO Via [facility] INCARCINAL LEFT INGUINAL HERNIA [id number] 05/06/2016 09:00:00 2016 00:01:00 DIS Outpatient SANTOSH KINSEY APRN [facility] PULM DYSPNEA [id number] 01/23/2016 21:05:00 2015 16:15:00 DIS Inpatient KRISTY BROWN, BRYANT Lin [facility] 4TH SEPSIS, COLITIS, URINARY OBSTRUCTION, [id number] 07/07/2015 04:35:00 2015 12:46:00 DIS Inpatient SUNNI JENNINGS DO [facility] 4TH DILANTIN TOXICITY [id number] 03/19/2015 19:40:00 2015 06:45:00 DIS Outpatient JAMES DO GRISELDA Eligio [facility] SLEEP SNORING, EXCESSIVE DAYTIME SLEEPINESS [id number] 02/14/2015 06:55:00 2015 13:40:00 DIS Outpatient KESHAV DERAS MD [facility] CATH ABNORMAL STRESS TEST,CAD,HTN,HLP,SOB [id number] 12/13/2014 09:26:00 2014 23:59:59 CLS Outpatient KALPANA ESTES MD [facility] RAD NAUSEA,ABD PAIN,HEART BURN [id number] 07/17/2014 18:12:00 2014 20:51:00 DIS Emergency PAUL MCQUEEN DESKTOP SUPPORT CONSULTANT [facility] ER NAUSEA/VOMITING [id number] 07/13/2014 07:30:00 2014 23:59:59 CLS Outpatient KALPANA ESTES MD [facility] RAD RECENT HEAD TRAUMA [id number] 02/20/2014 18:45:00 2014 11:05:00 DIS Inpatient KALPANA ESTES MD [facility] 4TH ALTERED MENTAL STATUS;SEIZURE DISORDER [id number] 11/16/2013 13:43:00 2013 17:44:00 DIS Emergency CLIFF ELI MD [facility] ER SOA/RIGHT RIB PAIN [id number] 06/14/2013 07:24:00 2013 23:59:59 CLS Outpatient KALPANA ESTES MD [facility] RAD STOMACH DISCOMFORT, CHONIC COUGH, HX OF CVA [id number] 06/08/2012 13:03:00 2012 12:42:00 DIS Inpatient KALPANA ESTES MD [facility] 4TH PNEUMONIA,SEIZURE [id number] 06/02/2016 15:00:00 PEN Preadmit SANTOSH KINSEY DESKTOP SUPPORT CONSULTANT [facility] PULM DYSPNEA [id number] 09/12/2015 12:52:00 ACT Outpatient JAMES DOGRISELDA [facility] RT DYSPNEA [id number] 01/22/2015 07:45:00 ACT Outpatient KESHAV DERAS MD [facility] CARD CVA,ABNORMAL EKG,HTN,SEIZURE, DYSPNEA [id number] 01/12/2015 13:50:00 ACT Outpatient KESHAV DERAS MD [facility] RAD CVA,ABNORMAL EKG,DYSPNEA,HTN,SEIZURE [id number] 04/12/2012 08:56:00 Document Registration [id number] 06/26/2011 10:30:00 Document Registration [id number] 06/22/2011 16:35:00 Document Registration [id number] 03/20/2011 09:04:00 Document Registration [id number] 01/13/2011 14:29:00 Document Registration [id number] 01/01/2011 13:44:00 Document Registration [id number] 11/20/2010 18:14:00 Document Registration [id number] 11/20/2010 13:43:00 Document Registration [id number] 11/20/2010 10:18:00 Document Registration [id number] 10/01/2010 12:53:00 Document Registration [id number] 01/15/2010 09:44:00 Document Registration [id number] 11/14/2009 09:15:00 Document Registration [id number] 11/13/2009 09:28:00 Document Registration [id number] 11/09/2009 09:49:00 Document Registration
--- OUTSIDE RECORDS SUMMARY | 2016-08-19 17:09 | XMS REPORT | Continuity of Care Document ---
Author Author [facility] Organization [facility] Address Unknown Phone Unavailable Allergies Active Description Code Type Severity Reaction Onset Reported/Identified Relationship to Patient Clinical Status Yes NKDA NKDA Mild N/A 11/13/2008 Yes No Known Drug Allergies [id number] Drug Allergy Unknown N/ A 02/24/2014 Medications [...] INTRACTABLE 06/26/2011 Ot 414.01 CORONARY ATHEROSCLEROSIS OF [place] CORON 06/26/2011 Ot 458.9 HYPOTENSION NOS 06/26/2011 [...] NOS 06/28/2011 Ot 414.01 CORONARY ATHEROSCLEROSIS OF [place] CORON 06/28/2011 Ot 438.7 DISTURBANCES OF VISION [...] ESTES MD Ot 414.01 CORONARY ATHEROSCLEROSIS OF [place] CORON 06/12/2012 KALPANA ESTES MD Ot 438.89 [...] ESTES MD Ot 414.01 CORONARY ATHEROSCLEROSIS OF [place] CORON 02/24/2014 KALPANA ESTES MD Ot 496 [...] MASS INDEX 31.0-31.9, ADULT 07/17/2014 PAUL MCQUEEN MEAL ATTENDANT Ot 780.79 OTH MALAISE FATIGUE 07/17/2014 PAUL MCQUEEN MEAL ATTENDANT Ot 787.01 NAUSEA WITH VOMITING 08/02/2014 KALPANA [...] MD Ot I25.10 ATHSCL HEART DISEASE OF [place] CORONARY 02/14/2015 KESHAV DERAS MD Ot 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 02/14/2015 KESHAV DERAS MD Ot I69.398 OTHER SEQUELAE OF CEREBRAL INFARCTION 02/14/2015 KESHAV DERAS MD Ot I70.201 UNSP ATHSCL [place] ARTERIES OF [facility] 02/14/2015 KESHAV DERAS MD Ot R94.39 ABNORMAL RESULT OF OTHER CARDIOVASCULAR 02/14/2015 KESHAV DERAS MD Ot Z79.899 OTHER DETENTION (CURRENT) DRUG THERAPY 02/14/2015 KESHAV DERAS MD [...] 433.10 03/20/2015 Ot 434.91 03/20/2015 MEERA BROWN, [facility] Ot 550.90 03/20/2015 MEERA BROWN, [facility] Ot 562.10 03/20/2015 MEERA BROWN, [facility] Ot 780.93 03/20/2015 MEERA BROWN, [facility] Ot 786.2 03/20/2015 MEERA BROWN, [facility] Ot 345.90 03/20/2015 MEERA BROWN, [facility] Ot 780.79 03/20/2015 MEERA BROWN, [facility] Ot 959.01 03/20/2015 MEERA BROWN, [facility] Ot E849.0 03/20/2015 MEERA BROWN, [facility] Ot E888.9 03/20/2015 MEERA BROWN, [facility] Ot R06.00 03/20/2015 MEERA BROWN, [facility] Ot R10.11 03/20/2015 MEERA BROWN, [facility] Ot R11.0 03/20/2015 MEERA BROWN, KALPANA J Ot R12 03/20/2015 MEERA BROWN, [facility] Ot R53.1 03/20/2015 [...] DO Ot I25.10 ATHSCL HEART DISEASE OF [place] CORONARY 07/08/2015 SUNNI JENNINGS DO Ot R40.0 [...] OF BOTH [place] AND T 09/12/2015 KESHAV DREAS MD Ot I10 ESSENTIAL (PRIMARY) HYPERTENSION 09/12/2015 [...] MD Ot I25.10 ATHSCL HEART DISEASE OF [place] CORONARY 01/29/2016 BRYANT WAGNER MD Ot I50.9 [...] DO Ot I25.10 ATHSCL HEART DISEASE OF [place] CORONARY 08/08/2016 RACHEL KEATING DO Ot 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, W OBST, W/O GANGR, 08/08/2016 RACHEL KEATING DO Ot Z79.899 OTHER BOTTLING SUPERVISOR (CURRENT) DRUG THERAPY 08/08/2016 RACHEL KEATIGN DO Ot Z95.5 PRESENCE OF CORONARY ANGIOPLASTY [...] DO Ot I25.10 ATHSCL HEART DISEASE OF [place] CORONARY 08/11/2016 RACHEL KEATING DO Ot 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, W OBST, W/O GANGR, 08/11/2016 RACHEL KEATING DO Ot Z79.899 OTHER DETENTION (CURRENT) DRUG THERAPY 08/11/2016 RACHEL KEATING DO [...] DO Ot I25.10 ATHSCL HEART DISEASE OF [place] CORONARY 08/11/2016 RACHEL KEATING DO Ot I69.398 [...] DO Ot I25.10 ATHSCL HEART DISEASE OF [place] CORONARY 08/15/2016 RACHEL KEATING DO Ot 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, W OBST, W/O GANGR, 08/15/2016 RACHEL KEATING DO Ot Z79.899 OTHER BOTTLING SUPERVISOR (CURRENT) DRUG THERAPY 08/15/2016 RACHEL KEATING DO Ot Z95.5 PRESENCE OF CORONARY ANGIOPLASTY IMPLANT Procedures Code Description Performed By Performed On 81.92 INJECTION INTO JOINT 06/25/2011 99.23 INJECT STEROID 03.31 SPINAL TAP 2014 Encounters ACCT No. Visit Date/Time Discharge Status Pt. Type Provider Facility Loc./Unit Complaint [id number] 08/10/2016 02:10:00 2016 16:40:00 DIS Outpatient RACHEL KEATING DO [facility] 4TH DIVERTICULITIS, SIGMOID FATIGUE NEUROSIS [id number] 08/08/2016 12:32:00 2016 16:53:00 DIS Outpatient RACHEL KEATING DO [facility] INCARCINAL LEFT INGUINAL HERNIA [id number] 05/06/2016 09:00:00 2016 00:01:00 DIS Outpatient SANTOSH KINSEY APRN [facility] PULM DYSPNEA [id number] 01/23/2016 21:05:00 2015 16:15:00 DIS Inpatient KRISTY BROWN, BRYANT Lin [facility] 4TH SEPSIS, COLITIS, URINARY OBSTRUCTION, [id number] 07/07/2015 04:35:00 2015 12:46:00 DIS Inpatient SUNNI JENNINGS DO [facility] 4TH DILANTIN TOXICITY [id number] 03/19/2015 19:40:00 2015 06:45:00 DIS Outpatient JAMES DO GRISELDA Eligio [facility] SLEEP SNORING, EXCESSIVE DAYTIME SLEEPINESS [id number] 02/14/2015 06:55:00 2015 13:40:00 DIS Outpatient KESHAV DERAS MD [facility] CATH ABNORMAL STRESS TEST,CAD,HTN,HLP,SOB [id number] 12/13/2014 09:26:00 2014 23:59:59 CLS Outpatient KALPANA ESTES MD [facility] RAD NAUSEA,ABD PAIN,HEART BURN [id number] 07/17/2014 18:12:00 2014 20:51:00 DIS Emergency PAUL MCQUEEN MEAL ATTENDANT [facility] ER NAUSEA/VOMITING [id number] 07/13/2014 07:30:00 2014 23:59:59 CLS Outpatient KALPANA ESTES MD [facility] RAD RECENT HEAD TRAUMA [id number] 02/20/2014 18:45:00 2014 11:05:00 DIS Inpatient KALPANA ESTES MD [facility] 4TH ALTERED MENTAL STATUS;SEIZURE DISORDER [id number] 11/16/2013 13:43:00 2013 17:44:00 DIS Emergency CLIFF ELI MD [facility] ER SOA/RIGHT RIB PAIN [id number] 06/14/2013 07:24:00 2013 23:59:59 CLS Outpatient KALPANA ESTES MD [facility] RAD STOMACH DISCOMFORT, CHONIC COUGH, HX OF CVA [id number] 06/08/2012 13:03:00 2012 12:42:00 DIS Inpatient KALPANA ESTES MD [facility] 4TH PNEUMONIA,SEIZURE [id number] 06/02/2016 15:00:00 PEN Preadmit SANTOSH KINSEY MEAL ATTENDANT [facility] PULM DYSPNEA [id number] 09/12/2015 12:52:00 ACT Outpatient JAMES DOGRISELDA [facility] RT DYSPNEA [id number] 01/22/2015 07:45:00 ACT Outpatient KESHAV DERAS MD [facility] CARD CVA,ABNORMAL EKG,HTN,SEIZURE, DYSPNEA [id number] 01/12/2015 13:50:00 ACT Outpatient KESHAV DERAS MD [facility] RAD CVA,ABNORMAL EKG,DYSPNEA,HTN,SEIZURE [id number] 04/12/2012 08:56:00 Document Registration [id number] 06/26/2011 10:30:00 Document Registration [id number] 06/22/2011 16:35:00 Document Registration [id number] 03/20/2011 09:04:00 Document Registration [id number] 01/13/2011 14:29:00 Document Registration [id number] 01/01/2011 13:44:00 Document Registration [id number] 11/20/2010 18:14:00 Document Registration [id number] 11/20/2010 13:43:00 Document Registration [id number] 11/20/2010 10:18:00 Document Registration [id number] 10/01/2010 12:53:00 Document Registration [id number] 01/15/2010 09:44:00 Document Registration [id number] 11/14/2009 09:15:00 Document Registration [id number] 11/13/2009 09:28:00 Document Registration [id number] 11/09/2009 09:49:00 Document Registration
[2016-08-19] MEDS: ALFUZOSIN HCL 10 MG TAB (UROXATRAL) PO SCH (17:25)
[2016-08-19 19:57] VITALS: BP 167/86
[2016-08-19] MEDS: MONTELUKAST 10 MG (SINGULAIR) TAB PO SCH (21:43)
[2016-08-19] MEDS: PRIMIDONE 50 MG TAB (MYSOLINE) PO SCH (21:43)
[2016-08-20 00:22] VITALS: BP 163/83
[2016-08-20 04:15] VITALS: BP 178/85
[2016-08-20 04:42] LABS: BASOPHILS % (AUTO) 0 % (0-10); EOSINOPHILS # (AUTO) 0.3 10^3/uL (0.0-0.3); EOSINOPHILS % (AUTO) 4 % (0-10); LYMPHOCYTES # (AUTO) 1.9 X 10^3 (1.0-4.0); LYMPHOCYTES % (AUTO) 23 % (12-44); MEAN CORPUSCULAR HEMOGLOBIN 29 PG (25-34); MEAN CORPUSCULAR HGB CONC 32 G/DL (32-36); MEAN CORPUSCULAR VOLUME 91 FL (80-99); MEAN PLATELET VOLUME 9.3 FL (7.4-10.4); MONOCYTES # (AUTO) 0.8 X 10^3 (0.0-1.0); MONOCYTES % (AUTO) 10 % (0-12); NEUTROPHILS % (AUTO) 62 % (42-75); PLATELET COUNT 285 10^3/uL (130-400); RED BLOOD COUNT 4.21 10^6/uL (4.35-5.85); RED CELL DISTRIBUTION WIDTH 14.5 % (10.0-14.5); WHITE BLOOD COUNT 8.1 10^3/uL (4.3-11.0)
[2016-08-20 05:06] LABS: ALBUMIN 3.6 GM/DL (3.2-4.5); ANION GAP 9 MMOL/L (5-14); BLOOD UREA NITROGEN 5 MG/DL (7-18); BUN/CREATININE RATIO 9; CALCIUM 8.7 MG/DL (8.5-10.1); CARBON DIOXIDE 22 MMOL/L (21-32); CHLORIDE 106 MMOL/L (98-107); CREATININE SERUM 0.56 MG/DL (0.60-1.30); GFR ESTIMATED > 60; GLUCOSE 107 MG/DL (70-105); PHOSPHORUS 2.3 MG/DL (2.3-4.7); POTASSIUM 3.7 MMOL/L (3.6-5.0); SODIUM 137 MMOL/L (135-145)
[2016-08-20] MEDS: NS IV 1000 ML 1,000 ML IV SCH (06:45)
[2016-08-20 08:00] VITALS: BP 167/88
[2016-08-20] MEDS: ENOXAPARIN 40 MG/0.4 ML (LOVENOX) SYR SC SCH (08:16)
[2016-08-20] MEDS: SERTRALINE 100 MG (ZOLOFT) TAB PO SCH (08:20)
[2016-08-20] MEDS: MAGNESIUM OXIDE (MAG-OX)400 MG TAB PO SCH (08:20)
[2016-08-20] MEDS: LEVETIRACETAM 500 MG (KEPPRA) TAB PO SCH (08:20)
[2016-08-20] MEDS: PHENYTOIN 100 MG (DILANTIN) CAP PO SCH (08:20)
[2016-08-20] MEDS: ASPIRIN E.C. 81 MG (ECOTRIN) TAB PO SCH (08:21)
[2016-08-20] MEDS ORDERED: LOSARTAN 50 MG (COZAAR) TAB PO SCH (09:15)
--- NOTE | 2016-08-20 09:20 | Discharge Summary ---
Diagnosis/Chief Complaint Date of Admission Aug 18, 2016 at 02:21 Date of Discharge August 20, 2016 Admission Diagnosis Admission Diagnosis Frequent falls- Left inguinal hernia- elevated DDimer- Scrotal Edema- Leukocytosis- urinary retention- h/o seizures- COPD- hard of hearing- Depression- CAD- HTN- h/o stroke- weakness- hypokalemia- Discharge Diagnosis Frequent falls- Left inguinal hernia- elevated DDimer- Scrotal Edema- Leukocytosis- urinary retention- h/o seizures- COPD- hard of hearing- Dementia with behavioral disturbance (verbal) Depression- CAD- HTN- h/o stroke- weakness- hypokalemia- Reason Hospital Visit 76 yo M admitted overnight for 2 falls at [facility]- one was because he did not wait for help getting up and tripped on his oxygen tubing. The second fall- a little unclear on events- This am though pt's son said his dad was more confused overnight and that he was acting like he was post-ictal from a seizure. No known head trauma. Pt was admitted last week for acute onset weakness and abdominal pain. He did undergo left inguinal hernia repair 08/08/[address] Zhu due to acute incarceration. Discharge Summary Hospital Course Hospital Course 76 yo M admitted for frequent falls and concern by the ER for sepsis vs PE/DVT. On admission pt's WBC were elevated as was his D-Dimer- he was given a dose of lovenox 100mg. A CT chest-angio could not be done due to a CT with contrast of abdomen was already done- I do not think patient has a PE nor a DVT as u/s of lower extremities was normal; The elevation of WBC and D-Dimer attributed to patient possibly having a recent seizure. Pt's WBC returned to normal by day 2. Pt no longer has abdominal pain and his inguinal hernia surgery is healing well. I did keep pt on DVT prophylactic dosage of lovenox. Patient did not have any seizures during his hospital stay. We discontinued his zosyn as he does not have a current bacterial infection- no new issues developed. Physical therapy worked with patient with strength and gait training. As for his hypokalemia it was replaced with iv and po. His magnesium level was normal. With scrotal elevation and cool compresses- his genital edema resolved. He has since urinated 1100cc thusfar on day of discharge 08/20/16- no issue with urinary retention now. He will continue his flomax. It was noted pt had elevated blood pressure - likely because patient's had [facility] stop his losartan. Goyo will return to [facility] for physical therapy and nursing care for medication management- he will resume his losartan for blood pressure control. Labs Laboratory Tests 08/17/16 21:08: White Blood Count 18.2H, Neutrophils (%) (Auto) 78H, Lymphocytes (%) (Auto) 9L, Monocytes (%) (Auto) 13H, Neutrophils # (Auto) 14.1H, Monocytes # (Auto) 2.3H, D -Dimer 2.76H, Glucose Level 131H 08/17/16 22:10: Urine Specific [place] 1.010L, Urine Protein 2+H, Urine RBC (Auto) 1+H, Urine Mucus SMALLH 08/17/16 23:43: 08/18/16 05:30: White Blood Count 12.7H, Neutrophils # (Auto) 9.2H, Monocytes # (Auto) 1.6H, Red Blood Count 4.13L, Hemoglobin 12.1L, Hematocrit 37L 08/18/16 11:03: Glucometer 133H 08/19/16 04:37: Red Blood Count 3.82L, Hemoglobin 11.1L, Hematocrit 35L, Potassium Level 2.9L, Calcium Level 8.2L 08/20/16 04:25: Red Blood Count 4.21L, Hemoglobin 12.1L, Hematocrit 38L, Blood Urea Nitrogen 5L , Creatinine 0.56L, Glucose Level 107H Procedures None. Discharge Physical Examination Allergies: Coded Allergies: No Known Drug Allergies (Unverified , 02/24/14) Vitals & I&Os Vital Signs Date Time Temp Pulse Resp B/P (MAP) Pulse Ox O2 Delivery O2 Flow Rate FiO2 08/20/16 08:00 97.2 69 22 167/88 97 Room Air 08/18/16 02:45 3.00 General Appearance: Alert, Oriented X3, Cooperative HEENT: Atraumatic, PERRLA Respiratory: Clear to Auscultation Cardiovascular: Regular Rate Abdominal: Normal Bowel Sounds, Soft, Other (genitals- scrotal/penile edema nearly resolved, much improved.) Extremities: No Clubbing, No Cyanosis Skin: No Rashes Neuro: Normal Speech Psych/Mental Status: Mental Status NL, Mood NL Discharge Home Medications Reviewed and agree with Discharge Medication list on patient's Discharge Instruction sheet Condition at Discharge stable Instructions to Patient/Family Please see electronic discharge instructions given to patient. Clinical Quality Measures DVT/VTE Risk/Contraindication: Risk Factor Score Per Nursin RFS Level Per Nursing on Admit: 4+=Very High BRYANT WAGNER MD Aug 20, 2016 09:20
[2016-08-20] MEDS ORDERED: LOSA50TA36 PO (09:30)
--- NOTE | 2016-08-20 09:35 | Discharge Inst-Skilled Nursing ---
Discharge Inst-Skilled NF Patient Instructions Patient Problems: frequent falls weakness urinary retention dementia parkinson seizures Goal: Patient to regain strength to return home- his mood/agitation with mental decline may prevent this and he may be in a facility senior living. Patient Instructions: return to [facility] for physical therapy Consult/Follow Up/Orders Follow Up Appt.: follow up in 1-2 weeks at [facility]. Skilled NF Admit to: [facility] Certification (SNF) I certify that SNF services are required to be given on an inpatient basis because of the above named patient's need for group home care on a continuing basis for the conditions(s) for which he/she was receiving inpatient hospital services prior to his/her transfer to the SNF. Snf Facility Order: Nursing Services, [facility]-Evaluate & Treat, Physical Therapy-Evaluate & Treat Discharge Diet: Regular Diet Daily Activity as Tolerated: Yes New & Resume Previous Orders New & Resume Previous Orders resume previous orders -Continue physical therapy -restart losartan 100mg daily -review med rec sent with patient and update current med rec accordingly. Oliver Wagner Aug 20, 2016 09:31 OLIVER WAGNER MD Aug 20, 2016 09:35
--- NOTE | 2016-08-20 10:00 | D/C HH Face to Face Order ---
D/C Face to Face Orders Instructions for Patient Patient Instructions/FollowUp: Patient will go to [facility]- for nursing care- Physical Therapy Physician to follow Patient: Oliver Wagner MD Discharge Diet for Home: Regular Diet Goals for Patient: Possibly return home if he regains his strength- His cognitive decline and mood will be limiting factor. Patient Data-Allergies,Ht & Wt Patient Allergies: Coded Allergies: No Known Drug Allergies (Unverified , 02/24/14) Height (Feet): 5 Height (Inches): 11.00 Weight (Pounds): 228 Weight (Ounces): 2.0 Home Health Need/Face to Face Date of Face to Face: Aug 20, 2016 Clinical Findings: Generalized weakness and fatigue, Unsteady gait, Other-list in note (dementia, -poor vision, poor hearing- recent left inguinal hernia repair) I have seen Pt [id number]: Yes Discharged To: Other ([facility]) Diagnosis/Conditions: weakness recurrent falls dementia urinary retention seizure disorder hypokalemia- resolved Problems/Diagnosis/Condition: Patient is Homebound due to: CognItive deficits (vision impairment) Homebound Status Due to the above stated illness, injury or surgical procedure (medical condition or diagnosis) and associated clinical findings, the patient is homebound because of his/her inability to leave home except with aid of a supportive device and/or person AND leaving the home requires a considerable and taxing effort or is medically contraindicated. Pt req the following assistanc: Aid of another person, Walker Home Health Nursing Orders Home Health Services Order: Nursing Services, Resin Remover-Evaluate & Treat, Physical Therapy-Evaluate & Treat Home Health Infusion Therapy Line Start Date: Aug 19, 2016 Therapy Orders Therapy Orders: Physical Therapy Therapy Specific Orders: Eval assistive deivces, Teach strategies/cognitive deficits, Increase strength/endurance Certify Stmt I certify that this patient is under my care and that I, a nurse practitioner or a physician; a assistant clinical director working with me, had a face to face encounter that - meets the physician face to face encounter requirements with this patient as dated. OLIVER WAGNER MD Aug 20, 2016 10:00
[2016-08-20] MEDS: RT-ALBUTEROL/IPRATROPIUM 3 ML (DUONEB) VIAL INH SCH (10:48)
== END 2016-08-20 11:23 | disposition home health service (06) | DRG 815 ==
LOC: EDUNIT# 19:46 → ER 19:47 → 4TH 08-18 02:21
PROVIDERS: ADMIT Family Medicine; ATTEND Family Medicine
DX: D72.829 Elevated white blood cell count, unspecified (principal); R79.1 Abnormal coagulation profile; G40.909 Epilepsy, unspecified, not intractable, without status epilepticus; N50.89 Other specified disorders of the male genital organs; R33.9 Retention of urine, unspecified; F03.91 Unspecified dementia, unspecified severity, with behavioral disturbance; E87.6 Hypokalemia; R53.1 Weakness; M79.604 Pain in right leg; M79.605 Pain in left leg; R41.0 Disorientation, unspecified; J44.9 Chronic obstructive pulmonary disease, unspecified; I25.10 Atherosclerotic heart disease of native coronary artery without angina pectoris; I10 Essential (primary) hypertension; I69.898 Other sequelae of other cerebrovascular disease; H53.9 Unspecified visual disturbance; Z91.81 History of falling; Z98.890 Other specified postprocedural states; Z95.5 Presence of coronary angioplasty implant and graft
CPT/HCPCS: 36415; 71010; 74177; 76870; 80053; 80069; 81000; 82962; 83605; 83735; 85007; 85025; 85027; 85379; 87040; 93970; 94640; 94664; 94760; 96361; 96365; 96372

== ENCOUNTER 2016-08-30 21:52 | Emergency (ER) | payer MEDICARE ==
[~2016-08-30] VITALS: Ht 182.9 cm; Wt 81.6 kg
[~2016-08-30 21:52] MED LIST changes: +ASPI-983 PO; +LOSA50TA36 PO; +MULT-1042 PO; +PRIM50TA PO; +TAMS0.4C2 PO
[2016-08-30 22:14] LABS: BILIRUBIN,URINE NEGATIVE (NEGATIVE); KETONES,URINE NEGATIVE (NEGATIVE); LEUKOCYTE ESTERASE ,URINE 1+ (NEGATIVE); NITRITE,URINE NEGATIVE (NEGATIVE); PH,URINE 6 (5-9); PROTEIN,URINE NEGATIVE (NEGATIVE); UROBILINOGEN,URINE NORMAL (NORMAL)
--- NOTE | 2016-08-30 22:21 | ED GU-Male ---
General Chief Complaint: -Male Stated Complaint: URINATION DIFFICULTIES Nursing Triage Note: PT TO ED 10 PER EMS W/ C/O URINARY RETENTION ONSET X1 WK, WORSE TONIGHT. NO OTHER C/O VOICED Source: patient, EMS Exam Limitations: no limitations History of Present Illness Time seen by provider: 21:52 Initial Comments Here with report of urinary retention intermittently over the last week. He has had previous episodes of similar. Denies fever, chills or vomiting. Patient has advanced Parkinson disease and resides in the senior living. Main complaint tonight is urinary retention. Timing/Duration: week, getting worse, intermittent Severity/Quality: moderate, aching Location: suprapubic Radiation: none Activities at Onset: none Prior Genitourinary Problems: similar symptoms Sexual Moriarty History: not active Modifying Factors: Improves With Urinating Associated Symptoms: abdominal pain, No dysuria, No fever/chills, No nausea/ vomiting, No urinary frequency Allergies and Home Medications Allergies Coded Allergies: No Known Drug Allergies (Unverified , 02/24/14) Home Medications Acetaminophen 500 Mg Tablet, 500-1,000 MG PO HS PRN for PAIN-MILD, (Reported) Aspirin 81 Mg Tablet.dr, 81 MG PO DAILY, (Reported) Haloperidol 2 Mg Tablet, 2 MG PO 1200 PRN for MOOD, (Reported) Hydrocodone/Acetaminophen 1 Each Tablet, 1 TAB PO Q8H PRN for PAIN-MODERATE, ( Reported) Levetiracetam 500 Mg Tablet, 500 MG PO BID, (Reported) Losartan Potassium 50 Mg Tablet, 100 MG PO DAILY for 30 Days, #30 Ref 11 Prescribed by: BRYANT WAGNER on 08/20/16 0930 Montelukast Sodium 10 Mg Tablet, 10 MG PO DAILY, (Reported) Multivit-Min/Iron Fum/Folic AC 1 Each Tablet, 1 TAB PO HS, (Reported) [place] 3 Polyunsat Fatty Acids 1,000 Mg Cap, 1,000 MG PO DAILY, (Reported) Phenytoin Sodium Extended 100 Mg Capsule, 200 MG PO BID, (Reported) TAKES 2 (100MG) CAPSULES Primidone 50 Mg Tablet, 50 MG PO HS, (Reported) Sertraline HCl 100 Mg Tablet, 100 MG PO DAILY, (Reported) Tamsulosin HCl 0.4 Mg Cap.er.24h, 0.4 MG PO 1800, (Reported) Constitutional: see HPI, No chills, No fever Respiratory: no symptoms reported Cardiovascular: no symptoms reported Gastrointestinal: see HPI Genitourinary: see HPI, denies hematuria, pain Musculoskeletal: no symptoms reported Past Xsszfsr-Ijiwel-Fwyaub Hx Patient Social History Alcohol Use: Denies Use Recreational Drug Use: No Smoking Status: Former Smoker Type Used: Pipe Former Smoker/When Quit: Feb 14, 2011 2nd Hand Smoke Exposure: No Recent Foreign Travel: No Contact w/Someone Who Travel: No Recent Infectious Disease Expo: No Recent Hopitalizations: Yes Immunizations Up To Date Tetanus Booster (TDap): Less than 5yrs PED Vaccines UTD: No Date of Pneumonia Vaccine: June 10, 2012 Seasonal Allergies Seasonal Allergies: No Surgeries HX Surgeries: Yes (BOOP-LUNG SURGERY, CATARACTS, DETACHED RETINA) Surgeries: Coronary Stent, Eye Surgery, Tonsillectomy Respiratory Hx Respiratory Disorders: Yes Cardiovascular Hx Cardiac Disorders: Yes (STENT) Cardiac Disorders: Coronary Artery Disease, Hypertension Neurological Hx Neurological Disorders: Yes Neurological Disorders: Dementia, Seizure Disorder, Stroke Reproductive System Hx Reproductive Disorders: No Sexually Transmitted Disease: No HIV/AIDS: No Genitourinary Hx Genitourinary Disorders: Yes (pt admits to trouble urinating for years) Gastrointestinal Hx Gastrointestinal Disorders: No Gastrointestinal Disorders: Hiatal Hernia Musculoskeletal Hx Musculoskeletal Disorders: No Endocrine Hx Endocrine Disorders: No HEENT HX ENT Disorders: Yes (DETACHED RETINA HX, vision deficits from stroke) HEENT Disorders: Cataract, Eye Injury Loss of Vision: Bilateral Hearing Impairment: Hard of Hearing Cancer Hx Cancer: No Psychosocial Hx Psychiatric Problems: Yes Behavioral Health Disorders: Depression Integumentary HX Skin/Integumentary Disorder: Yes Skin/Integumentary Disorders: Psoriasis Blood Transfusions Hx Blood Disorders: No Adverse Reaction to a Blood Tr: No Reviewed Nursing Assessment Reviewed/Agree w Nursing PMH: Yes Family Medical History Significant Family History: CAD Over 55 Years Old Family Medial History: Cardiovascular disease 19 FATHER, Onset:Unknown Cataracts 19 MOTHER, Onset:Unknown FH: stomach cancer 19 MOTHER, Onset:Unknown Glaucoma 19 MOTHER, Onset:Unknown Physical Exam Vital Signs Vital Sign - Last 12Hours 08/30/16 21:54 Temp 97.1 Pulse 66 Resp 20 B/P (MAP) 153/89 Pulse Ox 95 O2 Delivery Room Air Capillary Refill : Less Than 3 Seconds General Appearance: WD/WN, no apparent distress Neck: full range of motion, supple Cardiovascular: regular rate, rhythm, no murmur Respiratory: lungs clear, normal breath sounds Gastrointestinal: soft, tenderness (suprapubic with bladder fullness noted.) Male: normal genitalia, No erythema Neurologic/Psychiatric: alert, oriented x 3 Skin: normal color, warm/dry Progress/Results/Core Measures Results/Orders Lab Results Laboratory Tests Test 08/30/16 22:05 Range/Units Urine Color YELLOW Urine Clarity CLEAR Urine pH 6 5-9 Urine Specific Nitro 1.015 L 1.016-1.022 Urine Protein NEGATIVE NEGATIVE Urine Glucose (UA) NEGATIVE NEGATIVE Urine Ketones NEGATIVE NEGATIVE Urine Nitrite NEGATIVE NEGATIVE Urine Bilirubin NEGATIVE NEGATIVE Urine Urobilinogen NORMAL NORMAL MG/DL Urine Leukocyte Esterase 1+ H NEGATIVE Urine RBC (Auto) NEGATIVE NEGATIVE Urine RBC NONE /HPF Urine WBC 0-2 /HPF Urine Crystals NONE /LPF Urine Bacteria NONE /HPF Urine Casts NONE /LPF Urine Mucus NEGATIVE /LPF Urine Culture Indicated NO My Orders Orders - RAVIN MCCRACKEN MD Catheter(Urinary) Insert & Ass 03,15 (08/30/16 22:00) Ua Culture If Indicated (08/30/16 22:00) Vital Signs/I&O Vital Sign - Last 12Hours 08/30/16 21:54 Temp 97.1 Pulse 66 Resp 20 B/P (MAP) 153/89 Pulse Ox 95 O2 Delivery Room Air Blood Pressure Mean: 110 Progress Note : Progress Note Seen and evaluated. Esteban catheter placed by nursing. UA ordered. Monitor patient. 1025: No acute finding on UA and patient feels much better after catheter insertion. He has a follow-up appointment with his urologist on Thursday and he will keep that. We will keep catheter in place until seen by the urologist. Discharged home with return precautions. Family will take patient back to senior living. Patient and family verbalize understanding instructions and agreement with plan. Departure Impression Impression: Primary Impression: Urinary retention Disposition: HOME, SELF-CARE Condition: Improved Departure-Patient Inst. Decision time for Depature: 22:28 Referrals: BRYANT WAGNER MD (PCP/Family) Primary Care Physician Patient Instructions: How to Care for Your Esteban Catheter, Male, Urinary Retention (DC) Add. Discharge Instructions: All discharge instructions reviewed with patient and/or family. Voiced understanding. Follow-up with Dr. Medrano on Wednesday as scheduled. Return for worse pain, fever, vomiting, weakness, breathing problems or other concerns as needed. Drink plenty of fluids. Copy Copies To 1: KRISTOPHER MEDRANO MD Copies To 2: BRYANT WAGNER MD, TIMOTHY D MD Aug 30, 2016 22:21
[2016-08-30 22:23] LABS: WBC,URINE 0-2 /HPF
[2016-08-30 22:35] VITALS: BP 0/0
== END 2016-08-30 22:35 | disposition home or self-care (01) ==
LOC: ER 21:52
DX: R33.9 Retention of urine, unspecified (principal); I25.10 Atherosclerotic heart disease of native coronary artery without angina pectoris; I10 Essential (primary) hypertension; F03.90 Unspecified dementia, unspecified severity, without behavioral disturbance, psychotic disturbance, mood disturbance, and anxiety; F32.9 Major depressive disorder, single episode, unspecified; G40.909 Epilepsy, unspecified, not intractable, without status epilepticus; Z82.49 Family history of ischemic heart disease and other diseases of the circulatory system; Z87.19 Personal history of other diseases of the digestive system; Z86.73 Personal history of transient ischemic attack (TIA), and cerebral infarction without residual deficits; Z79.82 Long term (current) use of aspirin; Z87.891 Personal history of nicotine dependence; Z95.5 Presence of coronary angioplasty implant and graft; Z90.89 Acquired absence of other organs
CPT/HCPCS: 51702; 81000

== ENCOUNTER 2016-09-01 09:53 | Inpatient (IN) | payer MEDICARE ==
[~2016-09-01] VITALS: Ht 177.8 cm; Wt 98.0 kg
--- NOTE | 2016-09-01 10:43 | ED Neurological Problem ---
General Chief Complaint: Neuro-Stroke Like Symptoms Stated Complaint: AMS Nursing Triage Note: Pt to ED 3 via [facility] from [facility]. Facility reports pt began "walking sideways" last night at 1800 and then began repeating his words and acting more confused this morning around 0600. Nursing Sepsis Screen: No Definite Risk Source: patient Exam Limitations: no limitations History of Present Illness Time seen by provider: 09:50 Initial Comments Here from [facility] with report of difficulty walking last night and confused talking this morning. Patient was seen a few days ago for urinary retention and had Esteban catheter placed. He has definite changes in mentation today. No report of fever. Denies nausea or vomiting. Patient is confused. Timing/Duration: 24 hours Severity: moderate Associated Symptoms: confusion, No fever/chills, No muscle spasms, No nausea/ vomiting, sleepy, trouble walking, weakness Allergies and Home Medications Allergies Coded Allergies: No Known Drug Allergies (Unverified , 02/24/14) Home Medications Acetaminophen 500 Mg Tablet, 500-1,000 MG PO HS PRN for PAIN-MILD, (Reported) Aspirin 81 Mg Tablet.dr, 81 MG PO DAILY, (Reported) Haloperidol 2 Mg Tablet, 2 MG PO 1200 PRN for MOOD, (Reported) Hydrocodone/Acetaminophen 1 Each Tablet, 1 TAB PO Q8H PRN for PAIN-MODERATE, ( Reported) Levetiracetam 500 Mg Tablet, 500 MG PO BID, (Reported) Losartan Potassium 50 Mg Tablet, 100 MG PO DAILY for 30 Days, #30 Ref 11 Prescribed by: BRYANT WAGNER on 08/20/16 0930 Montelukast Sodium 10 Mg Tablet, 10 MG PO DAILY, (Reported) Multivit-Min/Iron Fum/Folic AC 1 Each Tablet, 1 TAB PO HS, (Reported) [place] 3 Polyunsat Fatty Acids 1,000 Mg Cap, 1,000 MG PO DAILY, (Reported) Phenytoin Sodium Extended 100 Mg Capsule, 200 MG PO BID, (Reported) TAKES 2 (100MG) CAPSULES Primidone 50 Mg Tablet, 50 MG PO HS, (Reported) Sertraline HCl 100 Mg Tablet, 100 MG PO DAILY, (Reported) Tamsulosin HCl 0.4 Mg Cap.er.24h, 0.4 MG PO 1800, (Reported) Constitutional: see HPI, No chills, No fever Eyes: No Symptoms Reported Ears, Nose, Mouth, Throat: no symptoms reported Respiratory: no symptoms reported Cardiovascular: no symptoms reported, No chest pain, No palpitations Gastrointestinal: No nausea, No vomiting Genitourinary: see HPI, decreased output Musculoskeletal: no symptoms reported Psychiatric/Neurological: See HPI, Weakness All Other Systems Reviewed Negative Unless Noted: Yes Past Tscerzt-Ibswwf-Ubusda Hx Patient Social History Alcohol Use: Denies Use Recreational Drug Use: No Smoking Status: Former Smoker Type Used: Pipe Former Smoker/When Quit: Feb 14, 2011 2nd Hand Smoke Exposure: No Recent Foreign Travel: No Contact w/Someone Who Travel: No Recent Infectious Disease Expo: No Recent Hopitalizations: No Immunizations Up To Date Tetanus Booster (TDap): Less than 5yrs PED Vaccines UTD: No Date of Pneumonia Vaccine: June 10, 2012 Seasonal Allergies Seasonal Allergies: No Surgeries HX Surgeries: Yes (BOOP-LUNG SURGERY, CATARACTS, DETACHED RETINA) Surgeries: Coronary Stent, Eye Surgery, Tonsillectomy Respiratory Hx Respiratory Disorders: Yes Respiratory Disorders: COPD Cardiovascular Hx Cardiac Disorders: Yes (STENT) Cardiac Disorders: Coronary Artery Disease, Hypertension Neurological Hx Neurological Disorders: Yes Neurological Disorders: Dementia, Parkinson's Disease, Seizure Disorder, Stroke Reproductive System Hx Reproductive Disorders: No Sexually Transmitted Disease: No HIV/AIDS: No Genitourinary Hx Genitourinary Disorders: Yes (pt admits to trouble urinating for years) Gastrointestinal Hx Gastrointestinal Disorders: No Gastrointestinal Disorders: Hiatal Hernia Musculoskeletal Hx Musculoskeletal Disorders: No Endocrine Hx Endocrine Disorders: No HEENT HX ENT Disorders: Yes (DETACHED RETINA HX, vision deficits from stroke) HEENT Disorders: Cataract, Eye Injury Loss of Vision: Bilateral Hearing Impairment: Hard of Hearing Cancer Hx Cancer: No Psychosocial Hx Psychiatric Problems: Yes Behavioral Health Disorders: Depression Integumentary HX Skin/Integumentary Disorder: Yes Skin/Integumentary Disorders: Psoriasis Blood Transfusions Hx Blood Disorders: No Adverse Reaction to a Blood Tr: No Reviewed Nursing Assessment Reviewed/Agree w Nursing PMH: Yes Family Medical History Significant Family History: CAD Over 55 Years Old Family Medial History: Cardiovascular disease 19 FATHER, Onset:Unknown Cataracts 19 MOTHER, Onset:Unknown FH: stomach cancer 19 MOTHER, Onset:Unknown Glaucoma 19 MOTHER, Onset:Unknown Physical Exam Vital Signs Vital Sign - Last 12Hours 09/01/16 09/01/16 09:54 10:45 Temp 98.4 Pulse 104 Resp 24 B/P (MAP) 155/118 Pulse Ox 94 O2 Delivery Room Air O2 Flow Rate 2.00 Capillary Refill : Less Than 3 Seconds General Appearance: WD/WN, no apparent distress HEENT: PERRL/EOMI, pharynx normal Neck: full range of motion, supple Respiratory: lungs clear, normal breath sounds Cardiovascular: no murmur, tachycardia Gastrointestinal: non tender, soft Back: normal inspection, no CVA tenderness, no vertebral tenderness Extremities: non-tender, normal inspection Neurologic/Psychiatric: alert, other (disoriented to time but otherwise knows person and place.) Crainal Nerves: normal hearing, normal speech Coordination/Gait: other (globally weak) Motor/Sensory: no motor deficit Skin: normal color, warm/dry Stroke Onset of Symptoms Date of Onset of Symptoms: Aug 31, 2016 NIH Stroke Scale Assessment Level of Consciousness: 0=Alert Level of Consciousness-Questio: 1=Answers one question LOC Commands: 0=Performs both tasks Gaze: 0=Normal Visual Posada: 0=No visual loss Facial Movement (Facial Paresi: 0=Normal symmetrical mnt Motor Function-Arms Right: 1=Drift Motor Function-Arms Left: 0=No drift Motor Function-Legs Right: 2=Some effort/gravity Motor Function-Legs Left: 2=Some effort/gravity Limb Ataxia: 2=Present in two limbs Best Language: 2=Severe aphasia Dysarthria: 0=Normal Extinction & Inattention: 0=No abnormality Stroke Thrombolytic Exclusion Age 18 or Over: Yes Focused Exam Lactic Acid Level Laboratory Tests Test 09/01/16 12:11 Lactic Acid Level 1.44 MMOL/L (0.50-2.00) Progress/Results/Core Measures Results/Orders Lab Results Laboratory Tests Test 09/01/16 11:00 09/01/16 12:03 09/01/16 12:11 Range/Units White Blood Count 21.6 H 4.3-11.0 10^3/uL Red Blood Count 5.09 4.35-5.85 10^6/uL Hemoglobin 14.8 13.3-17.7 G/DL Hematocrit 46 40-54 % Mean Corpuscular Volume 90 80-99 FL Mean Corpuscular Hemoglobin 29 25-34 PG Mean Corpuscular Hemoglobin Concent 32 32-36 G/DL Red Cell Distribution Width 14.8 H 10.0-14.5 % Platelet Count 328 130-400 10^3/uL Mean Platelet Volume 9.6 7.4-10.4 FL Neutrophils (%) (Auto) 80 H 42-75 % Lymphocytes (%) (Auto) 8 L 12-44 % Monocytes (%) (Auto) 12 0-12 % Eosinophils (%) (Auto) 0 0-10 % Basophils (%) (Auto) 0 0-10 % Neutrophils # (Auto) 17.3 H 1.8-7.8 X 10^3 Lymphocytes # (Auto) 1.8 1.0-4.0 X 10^3 Monocytes # (Auto) 2.5 H 0.0-1.0 X 10^3 Eosinophils # (Auto) 0.0 0.0-0.3 10^3/uL Basophils # (Auto) 0.0 0.0-0.1 10^3/uL Neutrophils % (Manual) 78 % Lymphocytes % (Manual) 10 % Monocytes % (Manual) 11 % Eosinophils % (Manual) 1 % Blood Morphology Comment NORMAL Prothrombin Time 14.6 12.2-14.7 SEC INR Comment 1.2 0.8-1.4 Activated Partial Thromboplast Time 40 H 24-35 SEC D-Dimer 1.05 H 0.00-0.49 UG/ML Sodium Level 137 135-145 MMOL/L Potassium Level 3.8 3.6-5.0 MMOL/L Chloride Level 102 98-107 MMOL/L Carbon Dioxide Level 23 21-32 MMOL/L Anion Gap 12 5-14 MMOL/L Blood Urea Nitrogen 19 H 7-18 MG/DL Creatinine 0.80 0.60-1.30 MG/DL Estimat Glomerular Filtration Rate > 60 BUN/Creatinine Ratio 24 Glucose Level 129 H 70-105 MG/DL Calcium Level 9.5 8.5-10.1 MG/DL Total Bilirubin 1.0 0.1-1.0 MG/DL Aspartate Amino Transf (AST/SGOT) 19 5-34 U/L Alanine Aminotransferase (ALT/SGPT) 39 0-55 U/L Alkaline Phosphatase 145 H 40-136 U/L Troponin I < 0.30 <0.30 NG/ML Total Protein 8.0 6.4-8.2 GM/DL Albumin 4.3 3.2-4.5 GM/DL Urine Color YELLOW Urine Clarity VERY CLOUDY H Urine pH 5 5-9 Urine Specific [employer] Mdl 1.020 1.016-1.022 Urine Protein 3+ H NEGATIVE Urine Glucose (UA) NEGATIVE NEGATIVE Urine Ketones 1+ H NEGATIVE Urine Nitrite POSITIVE H NEGATIVE Urine Bilirubin 1+ H NEGATIVE Urine Urobilinogen 1 NORMAL MG/DL Urine Leukocyte Esterase 3+ H NEGATIVE Urine RBC (Auto) 5+ H NEGATIVE Urine RBC 25-50 H /HPF Urine WBC >100 H /HPF Urine Squamous Epithelial Cells 5-10 /HPF Urine Crystals NONE /LPF Urine Bacteria FEW H /HPF Urine Casts PRESENT /LPF Urine Hyaline Casts 5-10 H /LPF Urine Mucus NEGATIVE /LPF Urine Culture Indicated YES Lactic Acid Level 1.44 0.50-2.00 MMOL/L My Orders Orders - RAVIN MCCRACKEN MD Cbc With Automated Diff (09/01/16 09:57) Protime With Inr (09/01/16 09:57) Partial Thromboplastin Time (09/01/16 09:57) Comprehensive Metabolic Panel (09/01/16 09:57) Fibrin Degradation Products (09/01/16 09:57) Troponin I (09/01/16 09:57) Ua Culture If Indicated (09/01/16 09:57) Chest 1 View, Ap/Pa Only (09/01/16 09:57) Ekg Tracing (09/01/16 09:57) Nothing By Mouth (09/01/16 Lunch) Accucheck Stat ONCE (09/01/16 09:57) Saline Lock/Iv-Start (09/01/16 09:57) Vital Signs - Stroke Q15M (09/01/16 09:57) Ct Head Wo-R/O Stroke (09/01/16 09:57) O2 (09/01/16 09:57) Intake & Output 06,14,22 (09/01/16 09:57) Monitor-Rhythm Ecg Trace Only (09/01/16 09:57) Dysphagia Screening Tool (09/01/16 09:57) Lactic Acid Analyzer (09/01/16 09:57) Blood Culture (09/01/16 09:57) Sputum Culture (09/01/16 09:57) Vital Signs Adult Sepsis Patie Q1HR (09/01/16 09:57) Remove Rings In Anticipation O (09/01/16 09:57) Ns Iv 1000 Ml (Sodium Chloride 0.9%) (09/01/16 11:13) Manual Differential (09/01/16 11:00) Urine Culture (09/01/16 12:03) Ceftriaxone Injection (Rocephin Injectio (09/01/16 12:45) Medications Given in ED Current Medications Medications Dose Ordered Sig/Destiny Route Start Time Stop Time Status Last Admin Dose Admin Sodium Chloride 1,000 ml @ 0 mls/hr Q0M ONCE IV 09/01/16 11:13 09/01/16 11:14 DC 09/01/16 11:26 999 MLS/HR Vital Signs/I&O Vital Sign - Last 12Hours 09/01/16 09/01/16 09:54 10:45 Temp 98.4 Pulse 104 Resp 24 B/P (MAP) 155/118 Pulse Ox 94 90 O2 Delivery Room Air Nasal Cannula O2 Flow Rate 2.00 Blood Pressure Mean: 130 Progress Note : Progress Note Seen and evaluated on arrival by EMS. IV by EMS. Labs, UA, CT head, EKG and chest x-ray ordered. Blood cultures and lactic acid ordered. Patient has complex presentation. Unable to complete stroke screen due to altered mental status. Patient is not a candidate for TPA due to last known well time greater than 12 hours. Monitor patient. 1241: Patient has significant urinary tract infection with elevation of white blood cell count. Lactic acid is negative. Blood pressures have remained in the normal to elevated range. No indications of severe sepsis or septic shock and no indications for high volume fluid resuscitation. Patient did receive 1 L of normal saline and his heart rate has responded appropriately. On reevaluation, patient is mentating a little better but still sluggish from baseline. Admit, inpatient status. Case discussed with Dr. Wagner who accepts patient for admission. Patient and family agree with plan. ECG Initial ECG Impression Date: Sep 01, 2016 Initial ECG Impression Time: 09:57 Initial ECG Rate: 105 Initial ECG Rhythm: S.Tach Comment Sinus tachycardia with normal axis. No evidence of ST elevation [place]. Similar to previous of 02/14 and 16. Interpreted by me. Diagnostic Imaging Diagonstic Imaging: CT Plain Films/CT/US/NM/MRI: head [facility]. [place], [place] NAME: MIKEL SELF [facility] REC#: [id number] PT STATUS: REG ER : 1940 PHYSICIAN: RAVIN MCCRACKEN MD ADMIT DATE: 09/01/16/ER Draft Date of Exam:09/01/16 CT HEAD WO-R/O STROKE EXAMINATION: CT scan of the head without intravenous contrast. INDICATION: Abnormal gait. Altered mental status. 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 There is no intracranial hemorrhage. Periventricular and deep white matter hypodensities, compatible with chronic microvascular ischemic changes, are also seen. No hydrocephalus. The calvarium appears unremarkable. There is a radiopaque foreign body around the posterior aspect of the left globe which appears to be post surgical. IMPRESSION: No intracranial hemorrhage. Old ischemic changes. Dictated on workstation # [id number] Dict: 09/01/16 1035 Trans: 09/01/16 1046 [id number] Interpreted by: ALEKS GODOY MD Electronically signed by: Jovan Imaging: Xray Plain Films/CT/US/NM/MRI: chest Comments VIA [facility]. [place], [place] NAME: MIKEL SELF [facility] REC#: [id number] PT STATUS: REG ER : 1940 PHYSICIAN: RAVIN MCCRACKEN MD ADMIT DATE: 09/01/16/ER Draft Date of Exam:09/01/16 CHEST 1 VIEW, AP/PA ONLY EXAMINATION: Portable AP view of the chest. INDICATION: Altered mental status. FINDINGS: The lungs demonstrate low volumes with minimal bibasilar atelectasis suggested. Sutures projecting over the right suprahilar region are noted. The heart size is mildly enlarged. No effusion or pneumothorax. The mediastinum and dorian appear unremarkable. IMPRESSION: Mild cardiomegaly. Low lung volumes with minimal bibasilar atelectasis. Dictated on workstation # [id number] Dict: 09/01/16 1115 Trans: 09/01/16 1128 [facility] [id number] Interpreted by: ALEKS GODOY MD Electronically signed by: Departure Communication Time/Spoke to Admitting Phy: 12:40 Impression Impression: Primary Impression: Altered mental status Qualified Codes: R41.82 - Altered mental status, unspecified Additional Impression: Urinary tract infection Qualified Codes: N30.00 - Acute cystitis without hematuria Disposition: ADMITTED INPATIENT Condition: Stable Decision to Admit Reason: Admit from ER (General) Decision to Admit/Date: Sep 01, 2016 Time/Decision to Admit Time: 12:40 Departure-Patient Inst. Referrals: BRYANT WAGNER MD (PCP/Family) Primary Care Physician RAVIN MCCRACKEN MD Sep 01, 2016 10:43
--- NOTE | 2016-09-01 10:46 | Diagnostic Imaging Report ---
EXAMINATION: CT scan of the head without intravenous contrast. INDICATION: Abnormal gait. Altered mental status. 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 There is no intracranial hemorrhage. Periventricular and deep white matter hypodensities, compatible with chronic microvascular ischemic changes, are also seen. No hydrocephalus. The calvarium appears unremarkable. There is a radiopaque foreign body around the posterior aspect of the left globe which appears to be post surgical. IMPRESSION: No intracranial hemorrhage. Old ischemic changes. Dictated by: Dictated on workstation # [id number]
[2016-09-01] MEDS ORDERED: NS IV 1000 ML 1,000 ML IV ONE (11:13)
--- NOTE | 2016-09-01 11:28 | Diagnostic Imaging Report ---
EXAMINATION: Portable AP view of the chest. INDICATION: Altered mental status. FINDINGS: The lungs demonstrate low volumes with minimal bibasilar atelectasis suggested. Sutures projecting over the right suprahilar region are noted. The heart size is mildly enlarged. No effusion or pneumothorax. The mediastinum and dorian appear unremarkable. IMPRESSION: Mild cardiomegaly. Low lung volumes with minimal bibasilar atelectasis. Dictated by: Dictated on workstation # [id number]
[2016-09-01 11:36] LABS: BASOPHILS % (AUTO) 0 % (0-10); EOSINOPHILS % (AUTO) 0 % (0-10); LYMPHOCYTES # (AUTO) 1.8 X 10^3 (1.0-4.0); LYMPHOCYTES % (AUTO) 8 % (12-44); MEAN CORPUSCULAR HEMOGLOBIN 29 PG (25-34); MEAN CORPUSCULAR HGB CONC 32 G/DL (32-36); MEAN CORPUSCULAR VOLUME 90 FL (80-99); MEAN PLATELET VOLUME 9.6 FL (7.4-10.4); MONOCYTES # (AUTO) 2.5 X 10^3 (0.0-1.0); MONOCYTES % (AUTO) 12 % (0-12); NEUTROPHILS # (AUTO) 17.3 X 10^3 (1.8-7.8); NEUTROPHILS % (AUTO) 80 % (42-75); PLATELET COUNT 328 10^3/uL (130-400); RED BLOOD COUNT 5.09 10^6/uL (4.35-5.85); RED CELL DISTRIBUTION WIDTH 14.8 % (10.0-14.5); WHITE BLOOD COUNT 21.6 10^3/uL (4.3-11.0)
[2016-09-01 11:45] LABS: INR 1.2 (0.8-1.4); PROTHROMBIN TIME PATIENT 14.6 SEC (12.2-14.7)
[2016-09-01 11:52] LABS: ALANINE AMINOTRANSFERASE 39 U/L (0-55); ALBUMIN 4.3 GM/DL (3.2-4.5); ANION GAP 12 MMOL/L (5-14); ASPARTATE AMINO TRANSFERASE 19 U/L (5-34); BLOOD UREA NITROGEN 19 MG/DL (7-18); BUN/CREATININE RATIO 24; CALCIUM 9.5 MG/DL (8.5-10.1); CARBON DIOXIDE 23 MMOL/L (21-32); CHLORIDE 102 MMOL/L (98-107); GFR ESTIMATED > 60; GLUCOSE 129 MG/DL (70-105); POTASSIUM 3.8 MMOL/L (3.6-5.0); SODIUM 137 MMOL/L (135-145)
[2016-09-01 11:58] LABS: EOSINOPHILS % (MANUAL) 1 %; LYMPHOCYTES % (MANUAL) 10 %; NEUTROPHILS % (MANUAL) 78 %; TROPONIN I < 0.30 NG/ML (<0.30)
[2016-09-01 12:11] LABS: KETONES,URINE 1+ (NEGATIVE); LEUKOCYTE ESTERASE ,URINE 3+ (NEGATIVE); NITRITE,URINE POSITIVE (NEGATIVE); PH,URINE 5 (5-9); PROTEIN,URINE 3+ (NEGATIVE); UROBILINOGEN,URINE 1 MG/DL (NORMAL)
[2016-09-01 12:20] LABS: BILIRUBIN,URINE 1+ (NEGATIVE); WBC,URINE >100 /HPF
[2016-09-01] MEDS ORDERED: cefTRIAXone INJECTION 1,000 MG in NS (IVPB) 50 ML IV ONE (12:45)
[2016-09-01] MEDS ORDERED: CATHETER FLUSH 10 ML SYR IV PRN (14:30)
[2016-09-01] MEDS: NS IV 1000 ML 1,000 ML IV SCH ×2 (14:52→22:40)
[2016-09-01 15:55] VITALS: BP 159/90
[2016-09-01 16:00] VITALS: BP 146/77
[2016-09-01] MEDS ORDERED: VIT-8 PO (16:33)
[2016-09-01] MEDS ORDERED: RISP1TAB3 PO (16:33)
[2016-09-01] MEDS ORDERED: PROP40TA5 PO (16:33)
[2016-09-01] MEDS ORDERED: LOSA100T28 PO (16:33)
[2016-09-01 20:30] VITALS: BP 137/79
--- NOTE | 2016-09-01 20:48 | History & Physical ---
History of Present Illness History of Present Illness Reason for visit/HPI 76 yo M admitted for confusion and unstable gait- Pt's reported he fell multiple times trying to walk and he was confused with his speech- not making sense. Pt was seen over the weekend for urinary retention and a owens was placed with him returning to [facility]. Pt seemed okay without issue at that time but by Thursday morning he appeared ill to staff. Pt was brought by ambulance- urinalysis indicated UTI so he was started on antibiotics and IVF as he has not drank much liquid of any kind the past few days. Pt has been cussing at staff at [facility] so on Thursday08/29/16 I started him on risperdal to try and calm his behavior down- this may be contributing to his sedated state. Date of Admission Sep 01, 2016 at 12:45 Date Seen by Provider: Sep 01, 2016 Time Seen by Provider: 19:00 I consulted on this patient on 09/01/16 20:45 Attending Physician Oliver Wagner MD Admitting Physician Oliver Wagner MD Consult Allergies and Home Medications Allergies Coded Allergies: No Known Drug Allergies (Unverified , 09/01/16) Home Medications Acetaminophen 500 Mg Tablet, 1,000 MG PO HS PRN for PAIN-MILD, (Reported) TAKES 2 (500 MG) TABLETS Aspirin 81 Mg Tablet.dr, 81 MG PO DAILY, (Reported) Haloperidol 2 Mg Tablet, 2 MG PO TID PRN for MOOD, (Reported) TID (EVERY 6 HOURS) NEEDED Hydrocodone/Acetaminophen 1 Each Tablet, 1 TAB PO Q8H PRN for PAIN-MODERATE, ( Reported) Levetiracetam 500 Mg Tablet, 500 MG PO BID, (Reported) Losartan Potassium 100 Mg Tablet, 100 MG PO DAILY, (Reported) Montelukast Sodium 10 Mg Tablet, 10 MG PO DAILY, (Reported) Argyle 3 Polyunsat Fatty Acids 1,000 Mg Cap, 1,000 MG PO DAILY, (Reported) Phenytoin Sodium Extended 100 Mg Capsule, 200 MG PO BID, (Reported) TAKES 2 (100 MG) CAPSULES Propranolol HCl 40 Mg Tablet, 40 MG PO BID, (Reported) Risperidone 1 Mg Tablet, 1 MG PO BID, (Reported) Sertraline HCl 100 Mg Tablet, 100 MG PO DAILY, (Reported) Tamsulosin HCl 0.4 Mg Cap.er.24h, 0.4 MG PO 1800, (Reported) Vit A/C/E AC/Znox/Cupric Oxide 1 Each Tablet, 1 TAB PO HS, (Reported) Past Bqydtoa-Yflbje-Xlvjlp Hx Patient Social History Alcohol Use: Denies Use Recreational Drug Use: No Smoking Status: Former Smoker Former smoker/When Quit: Feb 14, 2011 Type Used: Pipe 2nd Hand Smoke Exposure: No Physical Abuse Screen: No Sexual Abuse: No Recent Foreign Travel: No Contact w/other who traveled: No Recent Hopitalizations: No Recent Infectious Disease Expo: No Immunizations Up To Date Tetanus Booster (TDap): Less than 5yrs Date of Pneumonia Vaccine: June 10, 2012 Seasonal Allergies Seasonal Allergies: No Surgeries HX Surgeries: Yes (BOOP-LUNG SURGERY, CATARACTS, DETACHED RETINA) Surgeries: Coronary Stent, Eye Surgery, Tonsillectomy Respiratory Hx Respiratory Disorders: Yes Cardiovascular Hx Cardiovascular Disorders: Yes (STENT) Cardiac Disorders: Coronary Artery Disease, Hypertension Neurological Hx Neurological Disorders: Yes Neurological Disorders: Dementia, Parkinson's Disease, Seizure Disorder, Stroke Reproductive System Hx Reproductive Disorders: No Sexually Transmitted Disease: No HIV/AIDS: No Genitourinary Hx Genitourinary Disorders: Yes (pt admits to trouble urinating for years) Gastrointestinal Hx Gastrointestinal Disorders: No Gastrointestinal Disorders: Hiatal Hernia Musculoskeletal Hx Musculoskeletal Disorders: No Endocrine Hx Endocrine Disorders: No HEENT HX ENT Disorders: Yes (DETACHED RETINA HX, vision deficits from stroke) HEENT Disorders: Cataract, Eye Injury Loss of Vision: Bilateral Hearing Impairment: Hard of Hearing Cancer Hx Cancer: No Psychosocial Hx Psychiatric Problems: Yes Behavioral Health Disorders: Depression Integumentary HX Skin/Integumentary Disorder: Yes Skin/Integumentary Disorders: Psoriasis Blood Transfusions Hx Blood Disorders: No Adverse Reaction to a Blood Tr: No Reviewed Nursing Assessment Reviewed/Agree w Nursing PMH: Yes Family Medical History Significant Family History: CAD Over 55 Years Old Family Hx: Cardiovascular disease 19 FATHER, Onset:Unknown Cataracts 19 MOTHER, Onset:Unknown FH: stomach cancer 19 MOTHER, Onset:Unknown Glaucoma 19 MOTHER, Onset:Unknown Review of Systems Review of Systems ROS Unable to Obtain: confused General: No Chills, No Night Sweats HEENT: No Head Aches Pulmonary: No Dyspnea, No Cough Cardiovascular: No: Chest Pain Gastrointestinal: Abdominal Pain, No: Nausea, Vomiting Genitourinary: Retention Musculoskeletal: No: arm pain, back pain, hand pain, neck pain, shoulder pain Neurological: Confusion, Incoordination, Weakness All Other Systems Reviewed All Other Systems Reviewed: Yes Physical Exam Vital Signs Vital Sign - Last 12Hours 09/01/16 09/01/16 09:54 10:45 Temp 98.4 Pulse 104 Resp 24 B/P (MAP) 155/118 Pulse Ox 94 O2 Delivery Room Air O2 Flow Rate 2.00 Capillary Refill : Less Than 3 Seconds General Appearance: Mild Distress HEENT: PERRL/EOMI Neck: Non Tender, Supple Respiratory: Chest Non Tender, Lungs Clear, Normal Breath Sounds, No Accessory Muscle Use, No Respiratory Distress Cardiovascular: Regular Rate, Rhythm, No Edema Gastrointestinal: Normal Bowel Sounds, Non Tender, Soft Rectal: Deferred Genital/Rectal: Other Back: No CVA Tenderness Extremity: Normal Inspection, Non Tender Neurologic/Psychiatric: Other (sedated, sleeping- wakes to talk but falls asleep) Skin: Normal Color, Warm/Dry Assessment/Plan Assessment/Plan Assessment/Plan 76 yo M Sepsis secondary to catheter associated urinary tract infection- IVF, rocephin, urine culture +e.coli -justification for urinary catheter placement 08/30/16 was urinary retention -pt had an appt with Dr. Ledezma later this week for follow up. will consult him for recommendations -monitor encephalopathy- will hold his risperdal and haldol urinary retention- owens catheter, consult Dr. Ledezma Leukocytosis- trending down Frequent falls- multifactorial: infection weakness, environmental, medications (respirdal, haldol) will monitor and have PT work with pt. Left inguinal hernia- stable h/o seizures- will continue dilantin 100mg, keppra 500mg- COPD- at baseline- on 2L oxygen, follows with Dr. Cornejo as outpt- Was fired from [facility] due to his poor effort and verbally abusing staff- hard of hearing- hearing aids Depression- continue home meds CAD- denies chest pain HTN- monitoring- resume losartan h/o stroke- stable weakness- PT Dispo: treating UTI, hold central acting medications. Problems: Clinical Quality Measures DVT/VTE Risk/Contraindication: Risk Factor Score Per Nursin RFS Level Per Nursing on Admit: 4+=Very High Stroke: Date of last known well: Aug 31, 2016 OLIVER WAGNER MD Sep 01, 2016 20:48
[2016-09-01] MEDS: LEVETIRACETAM 500 MG (KEPPRA) TAB PO SCH (21:31)
[2016-09-01] MEDS: risperiDONE 1 MG (RisperDAL) TAB PO SCH (21:31)
[2016-09-01] MEDS: PHENYTOIN 100 MG (DILANTIN) CAP PO SCH (21:31)
[2016-09-01] MEDS: ENOXAPARIN 40 MG/0.4 ML (LOVENOX) SYR SQ SCH (22:02)
[2016-09-02] VITALS: BP 141/76
[2016-09-02 04:30] VITALS: BP 158/86
[2016-09-02 05:08] LABS: BASOPHILS % (AUTO) 0 % (0-10); EOSINOPHILS # (AUTO) 0.2 10^3/uL (0.0-0.3); EOSINOPHILS % (AUTO) 2 % (0-10); LYMPHOCYTES # (AUTO) 2.3 X 10^3 (1.0-4.0); LYMPHOCYTES % (AUTO) 19 % (12-44); MEAN CORPUSCULAR HEMOGLOBIN 29 PG (25-34); MEAN CORPUSCULAR HGB CONC 32 G/DL (32-36); MEAN CORPUSCULAR VOLUME 92 FL (80-99); MEAN PLATELET VOLUME 9.8 FL (7.4-10.4); MONOCYTES # (AUTO) 1.7 X 10^3 (0.0-1.0); MONOCYTES % (AUTO) 14 % (0-12); NEUTROPHILS # (AUTO) 7.7 X 10^3 (1.8-7.8); NEUTROPHILS % (AUTO) 65 % (42-75); PLATELET COUNT 243 10^3/uL (130-400); RED BLOOD COUNT 4.31 10^6/uL (4.35-5.85); RED CELL DISTRIBUTION WIDTH 14.5 % (10.0-14.5); WHITE BLOOD COUNT 11.9 10^3/uL (4.3-11.0)
[2016-09-02 05:38] LABS: ALANINE AMINOTRANSFERASE 31 U/L (0-55); ALBUMIN 3.5 GM/DL (3.2-4.5); ANION GAP 13 MMOL/L (5-14); ASPARTATE AMINO TRANSFERASE 18 U/L (5-34); BILIRUBIN,TOTAL 0.6 MG/DL (0.1-1.0); BLOOD UREA NITROGEN 16 MG/DL (7-18); BUN/CREATININE RATIO 25; CALCIUM 8.3 MG/DL (8.5-10.1); CARBON DIOXIDE 18 MMOL/L (21-32); CHLORIDE 108 MMOL/L (98-107); CREATININE SERUM 0.64 MG/DL (0.60-1.30); GFR ESTIMATED > 60; GLUCOSE 101 MG/DL (70-105); MAGNESIUM 1.9 MG/DL (1.8-2.4); POTASSIUM 3.4 MMOL/L (3.6-5.0); SODIUM 139 MMOL/L (135-145); TOTAL PROTEIN 6.5 GM/DL (6.4-8.2)
[2016-09-02 08:00] VITALS: BP_SYST 156; BP_SYST 158; BP_DIAS 82; BP_DIAS 86
--- NOTE | 2016-09-02 08:29 | Progress Note (SOAP) ---
Subjective Subjective Date Seen by Provider: Sep 02, 2016 Time Seen by Provider: 12:35 76 yo M with UTI and urinary retention - doing much better- sitting up in chair - more alert and conversant- He reports he does not want to go back to [facility]- would like to go to [facility]. Review of Systems ROS Unable to Obtain: confused General: No Chills, No Night Sweats HEENT: No Head Aches Pulmonary: No Dyspnea, No Cough Cardiovascular: No: Chest Pain Gastrointestinal: Abdominal Pain, No: Nausea, Vomiting Genitourinary: Retention Musculoskeletal: No: arm pain, back pain, hand pain, neck pain, shoulder pain Neurological: Confusion, Incoordination, Weakness All Other Systems Reviewed All Other Systems Reviewed: Yes Objective Exam Vital Signs Vital Sign - Last 12Hours 09/01/16 09/01/16 09:54 10:45 Temp 98.4 Pulse 104 Resp 24 B/P (MAP) 155/118 Pulse Ox 94 O2 Delivery Room Air O2 Flow Rate 2.00 Capillary Refill : Less Than 3 Seconds General Appearance: Mild Distress (angry about not being able to pee on his own.) HEENT: PERRL/EOMI Neck: Non Tender, Supple Respiratory: Chest Non Tender, Lungs Clear, Normal Breath Sounds, No Accessory Muscle Use, No Respiratory Distress Cardiovascular: Regular Rate, Rhythm, No Edema Gastrointestinal: Normal Bowel Sounds, Non Tender, Soft Rectal: Deferred Genital/Rectal: Other Back: No CVA Tenderness Extremity: Normal Inspection, Non Tender Neurologic/Psychiatric: Other (sedated, sleeping- wakes to talk but falls asleep) Skin: Normal Color, Warm/Dry Results Lab Laboratory Tests 09/01/16 11:00: White Blood Count 21.6H, Red Blood Count 5.09, Hemoglobin 14.8, Hematocrit 46, Mean Corpuscular Volume 90, Mean Corpuscular Hemoglobin 29, Mean Corpuscular Hemoglobin Concent 32, Red Cell Distribution Width 14.8H, Platelet Count 328, Mean Platelet Volume 9.6, Neutrophils (%) (Auto) 80H, Lymphocytes (%) (Auto) 8L , Monocytes (%) (Auto) 12, Eosinophils (%) (Auto) 0, Basophils (%) (Auto) 0, Neutrophils # (Auto) 17.3H, Lymphocytes # (Auto) 1.8, Monocytes # (Auto) 2.5H, Eosinophils # (Auto) 0.0, Basophils # (Auto) 0.0, Neutrophils % (Manual) 78, Lymphocytes % (Manual) 10, Monocytes % (Manual) 11, Eosinophils % (Manual) 1, Blood Morphology Comment NORMAL, Prothrombin Time 14.6, INR Comment 1.2, Activated Partial Thromboplast Time 40H, D-Dimer 1.05H, Sodium Level 137, Potassium Level 3.8, Chloride Level 102, Carbon Dioxide Level 23, Anion Gap 12, Blood Urea Nitrogen 19H, Creatinine 0.80, Estimat Glomerular Filtration Rate > 60, BUN/Creatinine Ratio 24, Glucose Level 129H, Calcium Level 9.5, Total Bilirubin 1.0, Aspartate Amino Transf (AST/SGOT) 19, Alanine Aminotransferase ( ALT/SGPT) 39, Alkaline Phosphatase 145H, Troponin I < 0.30, Total Protein 8.0, Albumin 4.3 09/01/16 12:03: Urine Color YELLOW, Urine Clarity VERY CLOUDYH, Urine pH 5, Urine Specific [place] 1.020, Urine Protein 3+H, Urine Glucose (UA) NEGATIVE, Urine Ketones 1+H , Urine Nitrite POSITIVEH, Urine Bilirubin 1+H, Urine Urobilinogen 1, Urine Leukocyte Esterase 3+H, Urine RBC (Auto) 5+H, Urine RBC 25-50H, Urine WBC >100H , Urine Squamous Epithelial Cells 5-10, Urine Crystals NONE, Urine Bacteria FEWH , Urine Casts PRESENT, Urine Hyaline Casts 5-10H, Urine Mucus NEGATIVE, Urine Culture Indicated YES 09/01/16 12:11: Lactic Acid Level 1.44 09/02/16 04:20: White Blood Count 11.9H, Red Blood Count 4.31L, Hemoglobin 12.5L, Hematocrit 40 , Mean Corpuscular Volume 92, Mean Corpuscular Hemoglobin 29, Mean Corpuscular Hemoglobin Concent 32, Red Cell Distribution Width 14.5, Platelet Count 243, Mean Platelet Volume 9.8, Neutrophils (%) (Auto) 65, Lymphocytes (%) (Auto) 19, Monocytes (%) (Auto) 14H, Eosinophils (%) (Auto) 2, Basophils (%) (Auto) 0, Neutrophils # (Auto) 7.7, Lymphocytes # (Auto) 2.3, Monocytes # (Auto) 1.7H, Eosinophils # (Auto) 0.2, Basophils # (Auto) 0.0, Sodium Level 139, Potassium Level 3.4L, Chloride Level 108H, Carbon Dioxide Level 18L, Anion Gap 13, Blood Urea Nitrogen 16, Creatinine 0.64, Estimat Glomerular Filtration Rate > 60, BUN/ Creatinine Ratio 25, Glucose Level 101, Calcium Level 8.3L, Total Bilirubin 0.6 , Aspartate Amino Transf (AST/SGOT) 18, Alanine Aminotransferase (ALT/SGPT) 31, Alkaline Phosphatase 115, Total Protein 6.5, Albumin 3.5, Magnesium Level 1.9 Microbiology 09/01/16 Urine Culture - Preliminary, Resulted Escherichia Coli Assessment/Plan Assessment/Plan Assessment/Plan 76 yo M Urinary tract infection- IVF, rocephin, urine culture +e.coli -justification for urinary catheter placement 08/30/16 was urinary retention -pt had an appt with Dr. Ledezma later this week for follow up. will consult him for recommendations -monitor encephalopathy- improved- will hold his risperdal and haldol urinary retention- owens catheter, consult Dr. Ledezma Frequent falls- multifactorial: infection weakness, environmental, medications (respirdal, haldol) will monitor and have PT work with pt. Left inguinal hernia- stable h/o seizures- will continue dilantin 100mg, keppra 500mg- COPD- at baseline- on 2L oxygen, follows with Dr. Cornejo as outpt- Was fired from [facility] due to his poor effort and verbally abusing staff- hard of hearing- hearing aids Depression- continue home meds CAD- denies chest pain HTN- monitoring- resume losartan h/o stroke- stable weakness- PT hypokalemia- replacing Dispo: treating UTI, will switch to keflex on discharge- Case Management involved for placement. Problems: Clinical Quality Measures DVT/VTE Risk/Contraindication: Risk Factor Score Per Nursin RFS Level Per Nursing on Admit: 4+=Very High Stroke: Date of last known well: Aug 31, 2016 BRYANT WAGNER MD Sep 02, 2016 08:29
--- NOTE | 2016-09-02 09:19 | Physical Therapy Evaluation ---
PT Evaluation-General Medical Diagnosis Admission Date Sep 01, 2016 at 12:45 Medical Diagnosis: AMS/UTI Onset Date: Sep 01, 2016 Therapy Diagnosis Therapy Diagnosis: generalized weakness/debility Height/Weight Height (Feet): 5 Height (Inches): 10.00 Weight (Pounds): 216 Weight (Ounces): 0.0 Precautions Precautions/Isolations: Seizure, Fall Prevention, Standard Precautions Referral Physician: Mike Reason for Referral: Evaluation/Treatment Medical History Pertinent Medical History: CAD, COPD, CVA, Dementia, HTN Additional Medical History multiple hospital admits this year Current History falls at assisted living secondary to UTI and debility Reviewed History: Yes Social History Home: Assisted Living Prior/Core FIM Prior Level of Function Functional Weber Measure 0=Not Assessed/NA 4=Minimal Assistance 1=Total Assistance 5=Supervision or Setup 2=Maximal Assistance 6=Modified Weber 3=Moderate Assistance 7=Complete Weber Bed Mobility: 4 Transfers (B,C,W/C) (FIM): 4 Gait: 4 PT Evaluation-Current Subjective Patient is in bed and very confused. Agrees to PT. Pain Location: No Pain Reported Objective Patient Orientation: Confused Attachments: Oxygen, Esteban Catheter, IV ROM/Strength ROM Lower Extremities bilateral LE WNL Strenght Lower Extremities right knee flexion/extension 3/5; hip flexion 3/5; ankle dorsi/plantarflexion left knee flexion/extension 3/5; hip flexion 3/5; ankle/dorsi/plantarflexion Integumentary/Posture Integumentary refer to nursing notes Bladder Incontinence: Esteban Cath Posture trunk flexed posture Neuromuscular (Tone, Coordination, Reflexes) diminished coordination due to Parkinson's and general debility Sensory Vision: Blind Legally Hearing: Impaired Sensation Right Lower Extremit: Impaired Sensation Left Lower Extremity: Impaired Transfers Functional Weber Measure 0=Not Assessed/NA 4=Minimal Assistance 1=Total Assistance 5=Supervision or Setup 2=Maximal Assistance 6=Modified Weber 3=Moderate Assistance 7=Complete Weber Transfers (B, C, W/C) (FIM): 4 Scootin Rollin Supine to/from Sit: 4 Sit to/from Stand: 4 Gait Mode of Locomotion: Walk Anticipated Mode of Locomotion: Walk Gait (FIM): 4 Distance (FIM): 3=150 ft Distance: 200' Gait Level of Assist: 4 Gait Persons Needed: 1 Gait Assistive Device: FWW Comments/Gait Description slow, steady gait sequence Balance Sitting Static: Fair Sitting Dynamic: Fair Standing Static: Fair Standing Dynamic: Fair Assessment/Needs Patient has been seen by PT with hospital admits and home health. Patient has progressively decreased in functional mobility and strength. From a PT stand point, patient would benefit from LTCF due to patient's inability to comply with exercises and gross motor skills and for safety concerns. Patient is highly unaware of safety concerns/awareness. Rehab Potential: Fair Post Rehab Potential-Barriers: compliance PT [facility] Goals [employer] Superintendent Goals PT [facility] Goals Time Frame: Sep 08, 2016 Transfers (B,C,W/C) (FIM): 5 Gait (FIM): 5 Gait distance (FIM): 3=150 ft Gait Level of Assist: 5 Gait Assistive Device: FWW PT Plan Problem List Problem List: Activity Tolerance, Functional Strength, Safety, Balance, Gait, Transfer, Bed Mobility Treatment/Plan Treatment Plan: Continue Plan of Care Treatment Plan: Bed Mobility, Education, Functional Activity Roberto, Functional Strength, Gait, Safety, Therapeutic Exercise, Transfers Treatment Duration: Sep 08, 2016 Frequency: 6 times per week Estimated Hrs Per Day: .25 hour per day Patient and/or Family Agrees t: Yes Safety Risks/Education Patient Education: Safety Issues Teaching Recipient: Patient, Significant Other Teaching Methods: Discussion Discharge Recommendations Therapy D/C Recommendations: Group Home Placement Time/GCodes Time In: 820 Time Out: 845 Total Billed Treatment Time: 25 Total Billed Treatment 1 visit EVModC 25 min G Codes Necessary: TANG Bach PT Sep 02, 2016 09:19
[2016-09-02] MEDS: POTASSIUM CL 10MEQ/50ML IVPB 50 ML IV SCH ×2 (09:27→12:56)
[2016-09-02] MEDS: cefTRIAXone 1 GM/NS 50 ML IVPB IV SCH ×2 (09:27)
[2016-09-02] MEDS: ASPIRIN E.C. 81 MG (ECOTRIN) TAB PO SCH (09:30)
[2016-09-02] MEDS: SERTRALINE 100 MG (ZOLOFT) TAB PO SCH (09:31)
[2016-09-02] MEDS: MONTELUKAST 10 MG (SINGULAIR) TAB PO SCH (09:31)
[2016-09-02] MEDS: LOSARTAN 50 MG (COZAAR) TAB PO SCH (09:31)
[2016-09-02] MEDS: LEVETIRACETAM 500 MG (KEPPRA) TAB PO SCH ×2 (09:31→20:48)
[2016-09-02] MEDS: PHENYTOIN 100 MG (DILANTIN) CAP PO SCH ×2 (09:31→20:48)
[2016-09-02] MEDS: NS IV 1000 ML 1,000 ML IV SCH ×2 (10:47→17:58)
[2016-09-02 12:00] VITALS: BP 143/67
--- NOTE | 2016-09-02 13:03 | CONSULTATION REPORT ---
DATE OF CONSULTATION: 09/02/2016 REFERRING PHYSICIAN: Dr. Mckeon SUMMARY: 76-year-old white man known to me with BPH, retention, slowing of the stream, difficult urination with frequency and nocturia x3 was seen in my office on the of this month. His PAC was 0.76. He was scheduled to come back tomorrow for studies at the office; however, he was admitted. He first went to the emergency room with retention, catheter was inserted. Then he went back to [facility] and showed some changes of invasiveness and neurological changes. He was found to have a urinary tract infection and he was admitted by Dr. Mckeon; however, he was also on some psychotropic medication, which would have account to his neurological status. Today he is completely lucid. His labs are normal. He feels fine. His urine is clear in the catheter. He has been covered with Rocephin. IMPRESSION: BPH with retention and UTI. RECOMMENDATION: Continue the Rocephin and tomorrow consider discharging the patient to follow-up at the office as scheduled to complete his work-up and manage accordingly. Job ID: [id number] Dictated Date: 09/02/2016 11:23:50 Sales Store Checker Date: 09/02/2016 12:54:47/steffanie
[2016-09-02] MEDS: HYDROcodone/APAP 5 MG/325 MG (LORTAB) TAB PO PRN (15:03)
[2016-09-02 15:50] VITALS: BP 147/85
--- NOTE | 2016-09-02 17:01 | Occupational Therapy Eval ---
OT Evaluation-General/PLF Medical Diagnosis Admission Date Sep 01, 2016 at 12:45 Medical Diagnosis: AMS/UTI Onset Date: Sep 01, 2016 Therapy Diagnosis Therapy Diagnosis: Weakness Height/Weight Height (Feet): 5 Height (Inches): 10.00 Weight (Pounds): 216 Weight (Ounces): 0.0 Precautions Precautions/Isolations: Seizure, Fall Prevention, Standard Precautions Safety Interventions: Reorient-PRN Referral Physician: Mike Referral Reason: Activity Tolerance, Self Care, Evaluation/Treatment, Strengthening/ROM Medical History Pertinent Medical History: CAD, COPD, CVA, Dementia, HTN, Parkinson's Additional Medical History Seizure, Stroke, psoriasis Current History Pt. admitted for confusion with speech. Fell multiple times. Reviewed History: Yes Social History Home: Assisted Living Current Living Status: Spouse Entry Into Home: Level Entry ADL-Prior Level of Function ADL PLOF Comments Pt. has assist at times from spouse to bathe and dress as needed. States that he has not been able to see since his stroke. DME/Equipment: Bath Chair, Shower DME/Equipment Comments Walker OT Current Status Subjective No pain reported. Appearance Pt. is up in huynh with PT. OT took over for PT. Pt. states that he needs to sit down. Nurse tech got pt. chair in hallway. Mental Status/Objective Patient Orientation: Person Current Glasses/Contacts: Yes Hand Dominance: Right Upper Extremity ROM Pt. is able to flex bilateral shoulders to approximately 100 degrees. Upper Extremity Coordination Pt. demonstrates tremors and coordination issues in right UE. Upper Extremity Strength Pt. demonstrates 3/5 bilateral UE strength. ADL-Treatment Functional [place] Measure 0=Not Assessed/NA 4=Minimal Assistance 1=Total Assistance 5=Supervision or Setup 2=Maximal Assistance 6=Modified [place] 3=Moderate Assistance 7=Complete IndependenceIRFPAI Quality Coding Scale 6 Independent with activity with or without an assistive device 5 Patient requires set up or clean up by helper. Patient completes activity by themselves 4 Supervision or touching assist (CGA). [place] provide cues , steadying assist 3 The helper provides less than half the effort to complete the activity 2 The helper provides more than half the effort to complete the activity 1 Dependent. The helper does all the effort to complete an activity 7 Patient refused to complete or attempt activity 9 The patient did not perform the activity before the current illness or injury 88 Not attempted due to Medical conditions or safety concerns Eating (FIM): 3 (Spouse helps pt. eat as he can't see his plate. Pt. is able to hold his coffee.) Grooming (FIM): 5 (Pt. is able to comb hair after set up.) Bathing (FIM): 3 (Pt. requires assistance to wash feet and bilateral LE. Assistance to wash rear kale area.) Lower Body Dressing (FIM): 2 (Pt. requires assistance to don socks.) Transfers (B, C, W/C) (FIM): 4 (Min assist for sit-stand out of chair.) Other Treatments Pt. requires cues at times. States that he can't see well. Verbalizes needing assistance. Declines shower but agrees to spongebathe. Education OT Patient Education: Correct positioning, Modified ADL techniques, Progress toward Goal/Update tx plan, Purpose of tx/functional activities, Reviewed precautions, Rehab process, Transfer techniques Teaching Recipient: Patient Teaching Methods: Demonstration, Discussion Response to Teaching: Verbalize Understanding, Return Demonstration OT Short Term Goals Short Term Goals Time Frame: Sep 09, 2016 Eating(FIM): 5 Grooming(FIM): 4 Bathing(FIM): 4 Upper Body Dressing(FIM): 4 Lower Body Dressing(FIM): 4 Toileting(FIM): 4 Transfers (B,C,W/C) (FIM): 5 Toilet/Commode Transfer(FIM): 5 Shower Transfer(FIM): 4 Additional Short Term Goals: 1-Demonstrate ADL Tasks, 2-Verbalize Understanding , 3-ImproveStrength/Roberto 1=Demonstrate adherence to instructed precautions during ADL tasks. 2=Patient will verbalize/demonstrate understanding of assistive devices/ modifications for ADL. 3=Patient will improve strength/tolerance for activity to enable patient to perform ADL's. OT Group Home Goals Group Home Goals Time Frame: Sep 23, 2016 Eating (FIM): 6 Grooming(FIM): 5 Bathing(FIM): 5 Upper Body Dressing(FIM): 5 Lower Body Dressing(FIM): 5 Toileting(FIM): 5 Transfers (B,C,W/C) (FIM): 6 Toilet/Commode Transfer(FIM): 6 Shower Transfer(FIM): 5 Additional Goals: 1-Demonstrate ADL Tasks, 2-Verbalize Understanding, 3- ImproveStrength/Roberto 1=Demonstrate adherence to instructed precautions during ADL tasks. 2=Patient will verbalize/demonstrate understanding of assistive devices/ modifications for ADL. 3=Patient will improve strength/tolerance for activity to enable patient to perform ADL's. OT Education/Plan Problem List/Assessment Assessment: Decreased Activ Tolerance, Decreased UE Strength, Dependent Transfers, Impaired Bed Mobility, Impaired Coordination, Impaired Funct Balance , Impaired I ADL's, Impaired Self-Care Skills, Restricted Funct UE ROM Discharge Recommendations Plan/Recommendations: Continue POC Therapy D/C Recommendations: Assisted Living, Home w/ Family Support Treatment Plan/Plan of Care Patient would benefit from OT for education, treatment and training to promote independence in ADL's, mobility, safety and/or upper extremity function for ADL' s. Plan of Care: ADL Retraining, Caregiver Training, Functional Mobility, UE Funct Exercise/Act Treatment Duration: Sep 23, 2016 Frequency: Daily Estimated Hrs Per Day: .5 hour per day Agreement: Yes Rehab Potential: Fair Time/GCodes Start Time: 08:45 Stop Time: 09:20 Total Time Billed (hr/min): 35 Billed Treatment Time 1, EVM x 15minutes, ADL x 20minutes INDU LAUREANO OT Sep 02, 2016 17:01
[2016-09-02] MEDS: ALFUZOSIN HCL 10 MG TAB (UROXATRAL) PO SCH (18:02)
[2016-09-02 19:05] VITALS: BP 141/72
[2016-09-02] MEDS: ENOXAPARIN 40 MG/0.4 ML (LOVENOX) SYR SQ SCH (20:48)
[2016-09-02] MEDS: ACETAMINOPHEN 500 MG TAB (TYLENOL) PO PRN (20:52)
[2016-09-02] MEDS: HALOPERIDOL 2 MG (HALDOL) TABLET PO PRN (20:52)
[2016-09-03] VITALS: BP 156/79
[2016-09-03] MEDS: HYDROcodone/APAP 5 MG/325 MG (LORTAB) TAB PO PRN ×3 (01:15→16:51)
[2016-09-03 04:00] VITALS: BP 156/83
[2016-09-03] MEDS: NS IV 1000 ML 1,000 ML IV SCH ×2 (04:09→15:19)
[2016-09-03] MEDS: KCL 20 MEQ TAB (K-DUR) PO SCH (05:46)
--- NOTE | 2016-09-03 06:51 | Progress Note-Urology ---
Progress Note-Urology Progress Notes/Assess & Plan Progress/Assessment & Plan PLAN W.U AT OFFICE EITHER DISCHARGED OR ON PASS, PER DR WAGNER Final Diagnosis URINE RETENTION AND UTI KRISTOPHER MEDRANO MD Sep 03, 2016 6:51 am
[2016-09-03 07:02] LABS: BASOPHILS % (AUTO) 0 % (0-10); EOSINOPHILS # (AUTO) 0.3 10^3/uL (0.0-0.3); EOSINOPHILS % (AUTO) 4 % (0-10); LYMPHOCYTES # (AUTO) 1.6 X 10^3 (1.0-4.0); LYMPHOCYTES % (AUTO) 20 % (12-44); MEAN CORPUSCULAR HEMOGLOBIN 29 PG (25-34); MEAN CORPUSCULAR HGB CONC 32 G/DL (32-36); MEAN CORPUSCULAR VOLUME 92 FL (80-99); MEAN PLATELET VOLUME 9.4 FL (7.4-10.4); MONOCYTES # (AUTO) 1.1 X 10^3 (0.0-1.0); MONOCYTES % (AUTO) 14 % (0-12); NEUTROPHILS # (AUTO) 4.8 X 10^3 (1.8-7.8); NEUTROPHILS % (AUTO) 62 % (42-75); PLATELET COUNT 186 10^3/uL (130-400); RED BLOOD COUNT 3.93 10^6/uL (4.35-5.85); WHITE BLOOD COUNT 7.7 10^3/uL (4.3-11.0)
[2016-09-03 07:22] LABS: CARBON DIOXIDE 21 MMOL/L (21-32); CHLORIDE 109 MMOL/L (98-107); POTASSIUM 3.8 MMOL/L (3.6-5.0); SODIUM 139 MMOL/L (135-145)
[2016-09-03 07:23] LABS: ALBUMIN 3.4 GM/DL (3.2-4.5); ANION GAP 9 MMOL/L (5-14); BLOOD UREA NITROGEN 7 MG/DL (7-18); BUN/CREATININE RATIO 12; CALCIUM 8.1 MG/DL (8.5-10.1); CREATININE SERUM 0.57 MG/DL (0.60-1.30); GFR ESTIMATED > 60; GLUCOSE 103 MG/DL (70-105); MAGNESIUM 1.7 MG/DL (1.8-2.4); PHOSPHORUS 2.8 MG/DL (2.3-4.7)
[2016-09-03 08:00] VITALS: BP 130/77
[2016-09-03] MEDS: PHENYTOIN 100 MG (DILANTIN) CAP PO SCH ×2 (08:51→20:09)
[2016-09-03] MEDS: ASPIRIN E.C. 81 MG (ECOTRIN) TAB PO SCH (08:51)
[2016-09-03] MEDS: MONTELUKAST 10 MG (SINGULAIR) TAB PO SCH (08:51)
[2016-09-03] MEDS: LOSARTAN 50 MG (COZAAR) TAB PO SCH (08:51)
[2016-09-03] MEDS: SERTRALINE 100 MG (ZOLOFT) TAB PO SCH (08:51)
[2016-09-03] MEDS: LEVETIRACETAM 500 MG (KEPPRA) TAB PO SCH ×2 (08:51→20:09)
[2016-09-03] MEDS: HALOPERIDOL 2 MG (HALDOL) TABLET PO PRN ×2 (08:51→16:51)
[2016-09-03] MEDS: cefTRIAXone 1 GM/NS 50 ML IVPB IV SCH ×2 (08:52)
[2016-09-03] MEDS: risperiDONE 1 MG (RisperDAL) TAB PO SCH ×2 (08:55→20:09)
[2016-09-03] MEDS: MAGNESIUM OXIDE (MAG-OX)400 MG TAB PO SCH ×2 (10:16→18:31)
--- NOTE | 2016-09-03 12:04 | Progress Note (SOAP) ---
Subjective Subjective Date Seen by Provider: Sep 03, 2016 Time Seen by Provider: 11:30 76 yo M with UTI and urinary retention - doing much better- getting ready to participate with OT today. Pt appreciable to staff for their great care while in the hospital. CM working on placement as he has significantly declined in function due to repeat admissions. Review of Systems ROS Unable to Obtain: confused General: No Chills, No Night Sweats HEENT: No Head Aches Pulmonary: No Dyspnea, No Cough Cardiovascular: No: Chest Pain Gastrointestinal: Abdominal Pain, No: Nausea, Vomiting Genitourinary: Retention Musculoskeletal: No: arm pain, back pain, hand pain, neck pain, shoulder pain Neurological: Incoordination, Weakness, No: Confusion (resolved) All Other Systems Reviewed All Other Systems Reviewed: Yes Objective Exam Vital Signs Vital Signs Date Time Temp Pulse Resp B/P (MAP) Pulse Ox O2 Delivery O2 Flow Rate FiO2 09/03/16 08:35 Nasal Cannula 3.00 09/03/16 08:00 93 Nasal Cannula 3.00 09/03/16 04:00 95.6 63 18 156/83 93 Nasal Cannula 3.00 09/03/16 00:00 97.2 70 20 156/79 93 Nasal Cannula 3.00 09/02/16 21:00 Nasal Cannula 2.00 09/02/16 19:05 98.0 89 20 141/72 95 Nasal Cannula 3.00 09/02/16 15:50 98.0 69 18 147/85 96 Nasal Cannula 3.00 09/02/16 15:42 Nasal Cannula 2.00 I & O 09/03/16 07:00 Intake Total 4430 ml Output Total 3100 ml Balance 1330 ml General Appearance: Mild Distress (angry about not being able to pee on his own.) HEENT: PERRL/EOMI Neck: Non Tender, Supple Respiratory: Chest Non Tender, Lungs Clear, Normal Breath Sounds, No Accessory Muscle Use, No Respiratory Distress Cardiovascular: Regular Rate, Rhythm, No Edema Gastrointestinal: Normal Bowel Sounds, Non Tender, Soft Rectal: Deferred Genital/Rectal: Other Back: No CVA Tenderness Extremity: Normal Inspection, Non Tender Neurologic/Psychiatric: Alert, Oriented x3, Normal Mood/Affect (for him), Other (sedated, sleeping- wakes to talk but falls asleep) Skin: Normal Color, Warm/Dry Results Lab Laboratory Tests 09/03/16 06:50: Sodium Level 139, Potassium Level 3.8, Chloride Level 109H, Carbon Dioxide Level 21, Anion Gap 9, Blood Urea Nitrogen 7, Creatinine 0.57L, Estimat Glomerular Filtration Rate > 60, BUN/Creatinine Ratio 12, Glucose Level 103, Calcium Level 8.1L, Phosphorus Level 2.8, Magnesium Level 1.7L, Albumin 3.4 09/03/16 06:56: White Blood Count 7.7, Red Blood Count 3.93L, Hemoglobin 11.5L, Hematocrit 36L, Mean Corpuscular Volume 92, Mean Corpuscular Hemoglobin 29, Mean Corpuscular Hemoglobin Concent 32, Red Cell Distribution Width 14.0, Platelet Count 186, Mean Platelet Volume 9.4, Neutrophils (%) (Auto) 62, Lymphocytes (%) (Auto) 20, Monocytes (%) (Auto) 14H, Eosinophils (%) (Auto) 4, Basophils (%) (Auto) 0, Neutrophils # (Auto) 4.8, Lymphocytes # (Auto) 1.6, Monocytes # (Auto) 1.1H, Eosinophils # (Auto) 0.3, Basophils # (Auto) 0.0 Microbiology 09/01/16 Blood Culture - Preliminary, Resulted No growth 09/01/16 Urine Culture - Final, Complete Escherichia Coli Assessment/Plan Assessment/Plan Assessment/Plan 76 yo M Urinary tract infection- IVF, rocephin, urine culture +e.coli -justification for urinary catheter placement 08/30/16 was urinary retention -pt had an appt with Dr. Ledezma 09/10/16 for evaluation for his retention - keeping catheter until his appt. -monitor encephalopathy- improved- urinary retention- owens catheter, consult Dr. Ledezma Frequent falls- multifactorial: infection weakness, environmental, medications (respirdal, haldol) will monitor and have PT work with pt. Left inguinal hernia- stable h/o seizures- will continue dilantin 100mg, keppra 500mg- COPD- at baseline- on 2L oxygen, follows with Dr. Cornejo as outpt- Was fired from [facility] due to his poor effort and verbally abusing staff- hard of hearing- hearing aids Depression- continue home meds CAD- denies chest pain HTN- monitoring- resume losartan h/o stroke- stable weakness- PT hypokalemia- replacing Dispo: treating UTI, will treat one more day with IVF and IV antibiotics- monitor his urine output over next 24 hours- Continue PT/OT for weakness. Will switch to keflex on discharge for 4 more days.- Case Management involved for placement. Problems: Clinical Quality Measures DVT/VTE Risk/Contraindication: Risk Factor Score Per Nursin RFS Level Per Nursing on Admit: 4+=Very High Stroke: Date of last known well: Aug 31, 2016 BRYANT WAGNER MD Sep 03, 2016 12:04
--- NOTE | 2016-09-03 12:53 | Occupational Ther Daily Note ---
OT Current Status-Daily Note Subjective Pt seen in room, up in bed, agreeable to OT. No pain mentioned Appearance Alert, cooperative Mental Status/Objective Functional [place] Measure 0=Not Assessed/NA 4=Minimal Assistance 1=Total Assistance 5=Supervision or Setup 2=Maximal Assistance 6=Modified [place] 3=Moderate Assistance 7=Complete [place] Other Treatment Pt reported that he had lost his bed controls. Due to blindness, pt was oriented with physical assistance to location of head and foot of bed controls and nurse call button. Pt was also shown one exercise that he could do in bed to help with ROM and strengthening muscles used in transfers. he did 10 reps, with help counting reps. He did not recall orientation to bed control so was reoriented but he did recall the exercise and did 5 reps more. Pt left up in bed , 4 rails up. O2 was out of his nose so repositioned. All needs met. IV was pulled out of R hand but not bleeding - nurse notified. Education OT Patient Education: Exercise program, Modified ADL techniques, Purpose of tx/ functional activities Teaching Recipient: Patient Teaching Methods: Demonstration, Discussion Response to Teaching: Verbalize Understanding, Return Demonstration, Reinforcement Needed OT Short Term Goals Short Term Goals Time Frame: Sep 09, 2016 Eating(FIM): 5 Grooming(FIM): 4 Bathing(FIM): 4 Upper Body Dressing(FIM): 4 Lower Body Dressing(FIM): 4 Toileting(FIM): 4 Transfers (B,C,W/C) (FIM): 5 Toilet/Commode Transfer(FIM): 5 Shower Transfer(FIM): 4 Additional Short Term Goals: 1-Demonstrate ADL Tasks, 2-Verbalize Understanding , 3-ImproveStrength/Roberto 1=Demonstrate adherence to instructed precautions during ADL tasks. 2=Patient will verbalize/demonstrate understanding of assistive devices/ modifications for ADL. 3=Patient will improve strength/tolerance for activity to enable patient to perform ADL's. OT Care Home Goals [place] Supervisor Goals Time Frame: Sep 23, 2016 Eating (FIM): 6 Grooming(FIM): 5 Bathing(FIM): 5 Upper Body Dressing(FIM): 5 Lower Body Dressing(FIM): 5 Toileting(FIM): 5 Transfers (B,C,W/C) (FIM): 6 Toilet/Commode Transfer(FIM): 6 Shower Transfer(FIM): 5 Additional Goals: 1-Demonstrate ADL Tasks, 2-Verbalize Understanding, 3- ImproveStrength/Roberto 1=Demonstrate adherence to instructed precautions during ADL tasks. 2=Patient will verbalize/demonstrate understanding of assistive devices/ modifications for ADL. 3=Patient will improve strength/tolerance for activity to enable patient to perform ADL's. OT Education/Plan Discharge Recommendations Plan/Recommendations: Continue POC Treatment Plan/Plan of Care Patient would benefit from OT for education, treatment and training to promote independence in ADL's, mobility, safety and/or upper extremity function for ADL' s. Plan of Care: ADL Retraining, Caregiver Training, Functional Mobility, UE Funct Exercise/Act Treatment Duration: Sep 23, 2016 Frequency: Daily Estimated Hrs Per Day: .5 hour per day Agreement: Yes Rehab Potential: Fair Time/GCodes Start Time: 11:40 Stop Time: 11:55 Total Time Billed (hr/min): 15 Billed Treatment Time visit, ADL 10 min, exercise 5 minutes PRIETO ARIZA OT Sep 03, 2016 12:53
--- NOTE | 2016-09-03 15:32 | Physical Therapy Progress Note ---
Therapy Progress Note Pt laying Supine in bed upon arrival. Pt refused PT this morning for ambulation. PT asked to at least completed Supine Ex but pt refused and reported not sleeping well last night as well as being in too much pain. Pt didn't rate pain. PT explained benefits to PT but pt declined. 1 visit, no tx rendered JESS RUIZ EMBOSSING MACHINE OPERATOR HELPER Sep 03, 2016 15:32
[2016-09-03 15:42] VITALS: BP 163/72
[2016-09-03] MEDS: ACETAMINOPHEN 500 MG TAB (TYLENOL) PO PRN (16:52)
[2016-09-03] MEDS: ALFUZOSIN HCL 10 MG TAB (UROXATRAL) PO SCH (18:32)
[2016-09-03] MEDS: ENOXAPARIN 40 MG/0.4 ML (LOVENOX) SYR SQ SCH (20:09)
[2016-09-04] VITALS: BP 159/85
[2016-09-04] MEDS: NS IV 1000 ML 1,000 ML IV SCH ×2 (01:23→13:08)
[2016-09-04] MEDS: KCL 20 MEQ TAB (K-DUR) PO SCH (05:22)
[2016-09-04] MEDS: HYDROcodone/APAP 5 MG/325 MG (LORTAB) TAB PO PRN (05:22)
[2016-09-04 08:00] VITALS: BP 175/93
--- NOTE | 2016-09-04 08:23 | Discharge Summary ---
Diagnosis/Chief Complaint Date of Admission Sep 01, 2016 at 12:45 Date of Discharge September 04, 2016 Admission Diagnosis Admission Diagnosis Urinary tract infection- urinary retention- Frequent falls- Left inguinal hernia- h/o seizures- COPD- hard of hearing- Depression- CAD- HTN- h/o stroke- weakness- Discharge Diagnosis Urinary tract infection- urinary retention- Frequent falls- Left inguinal hernia- h/o seizures- COPD- hard of hearing- Depression- CAD- HTN- h/o stroke- weakness- hypokalemia- Reason Hospital Visit 76 yo M admitted for confusion and unstable gait- Pt's reported he fell multiple times trying to walk and he was confused with his speech- not making sense. Pt was seen over the weekend for urinary retention and a owens was placed with him returning to [facility]. Pt seemed okay without issue at that time but by Thursday morning he appeared ill to staff. Pt was brought by ambulance- urinalysis indicated UTI so he was started on antibiotics and IVF as he has not drank much liquid of any kind the past few days. Pt has been cussing at staff at [facility] so on Thursday08/29/16 I started him on risperdal to try and calm his behavior down- this may be contributing to his sedated state. Discharge Summary Hospital Course Hospital Course 76 year old male admitted for frequently falling due to Urinary tract infection - urine culture +e.coli and pt was treated with IV ceftriaxone- he was transitioned to keflex on discharge. -justification for urinary catheter placement 08/30/16 was urinary retention -with treatment of his UTI his encephalopathy- resolved. urinary retention- had resolved with a trial of urination. Frequent falls and weakness- Patient worked with physical therapy who recommended transfer to SNU for continued PT. Left inguinal hernia- stable h/o seizures- He was continued on his dilantin 100mg, keppra 500mg- COPD- at baseline- on 2L oxygen- no new issues. HTN- remained normotensive on losartan On day of discharge- Pt underwent cystoscopy with Dr. Ledezma and voided after- he was discharged to [facility] without a owens. He will complete his course of antibiotics (keflex) for his UTI. Pt is to work with PT/OT to regain his strength. Labs Laboratory Tests 09/03/16 06:50: Chloride Level 109H, Creatinine 0.57L, Calcium Level 8.1L, Magnesium Level 1.7L 09/03/16 06:56: Red Blood Count 3.93L, Hemoglobin 11.5L, Hematocrit 36L, Monocytes (%) (Auto) 14H, Monocytes # (Auto) 1.1H Procedures None. Consultations Dr. Ledezma Discharge Physical Examination Allergies: Coded Allergies: No Known Drug Allergies (Unverified , 09/01/16) Vitals & I&Os Vital Signs Date Time Temp Pulse Resp B/P (MAP) Pulse Ox O2 Delivery O2 Flow Rate FiO2 09/04/16 13:45 66 20 175/93 98 Nasal Cannula 2.00 09/04/16 08:00 96.4 General Appearance: Alert, Oriented X3, Cooperative HEENT: Atraumatic Respiratory: Clear to Auscultation Cardiovascular: Regular Rate Abdominal: Normal Bowel Sounds, Soft Skin: No Rashes, No Breakdown Neuro: Normal Speech, Strength at 5/5 X4 Ext Psych/Mental Status: Mental Status NL, Mood NL Discharge Home Medications Reviewed and agree with Discharge Medication list on patient's Discharge Instruction sheet Condition at Discharge stable Instructions to Patient/Family Please see electronic discharge instructions given to patient. Clinical Quality Measures DVT/VTE Risk/Contraindication: Risk Factor Score Per Nursin RFS Level Per Nursing on Admit: 4+=Very High Stroke: Date of last known well: Aug 31, 2016 BRYANT WAGNER MD Sep 04, 2016 08:23
[2016-09-04] MEDS ORDERED: MAGN400T6 PO (08:30)
[2016-09-04] MEDS ORDERED: HYDR-3812 PO (08:30)
[2016-09-04] MEDS ORDERED: POTA20TA8 PO (08:30)
[2016-09-04] MEDS ORDERED: CEPH500C PO (08:31)
--- NOTE | 2016-09-04 08:38 | Discharge Inst-Skilled Nursing ---
Discharge Inst-Skilled NF Chief Complaint altered mental status, frequent falls, urinary retention Patient Instructions Patient Problems: altered mental status, frequent falls, urinary retention, CAUTI, HTN, COPD, depression with angry outbursts. Goal: Increase pt's strength and gait Patient Instructions: Work with PT, OT complete 1 week course of cephalexin for UTI 30 days of Potassium supplement 10 day course of magnesium supplement Consult/Follow Up/Orders Follow Up Appt.: 2 weeks [facility]- Dr. Oliver Wagner Skilled NF Admit to: [facility] Certification (SNF) I certify that SNF services are required to be given on an inpatient basis because of the above named patient's need for nursing home care on a continuing basis for the conditions(s) for which he/she was receiving inpatient hospital services prior to his/her transfer to the SNF. Long-Term Facility Order: Nursing Services, Marketing Services Coordinator-Evaluate & Treat, Physical Therapy-Evaluate & Treat Discharge Diet: Eat Small Frequent Meals, Regular Diet Daily Activity as Tolerated: Yes New & Resume Previous Orders New & Resume Previous Orders Work with PT, OT complete 1 week course of cephalexin for UTI 30 days of Potassium supplement 10 day course of magnesium supplement Monitor urine output -check CBC, BMP, magnesium labs on 09/11/2016- Fax results to [facility] Oliver Wagner Sep 04, 2016 08:34 OLIVER WAGNER MD Sep 04, 2016 08:38
[2016-09-04] MEDS: ASPIRIN E.C. 81 MG (ECOTRIN) TAB PO SCH (08:57)
[2016-09-04] MEDS: risperiDONE 1 MG (RisperDAL) TAB PO SCH (08:57)
[2016-09-04] MEDS: MONTELUKAST 10 MG (SINGULAIR) TAB PO SCH (08:57)
[2016-09-04] MEDS: cefTRIAXone 1 GM/NS 50 ML IVPB IV SCH ×2 (08:57)
[2016-09-04] MEDS: MAGNESIUM OXIDE (MAG-OX)400 MG TAB PO SCH (08:57)
[2016-09-04] MEDS: LEVETIRACETAM 500 MG (KEPPRA) TAB PO SCH (08:57)
[2016-09-04] MEDS: HALOPERIDOL 2 MG (HALDOL) TABLET PO PRN (08:57)
[2016-09-04] MEDS: SERTRALINE 100 MG (ZOLOFT) TAB PO SCH (08:57)
[2016-09-04] MEDS: LOSARTAN 50 MG (COZAAR) TAB PO SCH (08:58)
[2016-09-04] MEDS: PHENYTOIN 100 MG (DILANTIN) CAP PO SCH (08:58)
[2016-09-04] MEDS ORDERED: LIDOCAINE UROJET 2% GEL 10 ML PKG ONE (09:29)
--- NOTE | 2016-09-04 10:58 | Physical Therapy Progress Note ---
Therapy Progress Note Attempted PT visit at this time. Nurse prepping for a bedside cysto to be performed by Dr. Ledezma and the [facility] No treatment rendered. visit only. DENICE CASTELLON PT Sep 04, 2016 10:58
[2016-09-04] MEDS ORDERED: ENOXAPARIN 40 MG/0.4 ML (LOVENOX) SYR SQ SCH ×2 (11:00→21:00)
--- NOTE | 2016-09-04 11:43 | Progress Note-Pre Operative ---
Pre-Operative Progress Note H&P Reviewed The H&P was reviewed, patient examined and no changes noted. Date Seen by Provider: Sep 04, 2016 Time Seen by Provider: 11:42 Date H&P Reviewed: Sep 04, 2016 Time H&P Reviewed: 11:42 Pre-Operative Diagnosis: urine retention KRISTOPHER MEDRANO MD Sep 04, 2016 11:43 am
--- NOTE | 2016-09-04 11:45 | Progress Note-Post Operative ---
Post-Operative Progess Note Surgeon (s)/Pavilion Cutter (s) Surgeon KRISTOPHER MEDRANO MD Pavilion Cutter: N/A Pre-Operative Diagnosis urine retention Post-Operative Diagnosis SAME Procedure & Operative Findings Date of Procedure 09/04/16 Procedure Performed/Findings CYSTOSCOPY Anesthesia Type LOCAL Estimated Blood Loss Estimated blood loss (mL): N/A Specimens/Packing Specimens Removed N/A Packing: N/A KRISTOPHER MEDRANO MD Sep 04, 2016 11:45 am
[2016-09-04 13:45] VITALS: BP 175/93
--- NOTE | 2016-09-05 10:03 | OPERATIVE REPORT ---
PROCEDURE PHYSICIAN: KRISTOPHER MEDRANO DATE OF PROCEDURE: 09/04/2016 PREOPERATIVE DIAGNOSIS: Urinary retention. POSTOPERATIVE DIAGNOSIS: Urinary retention. OPERATION: Cystoscopy. SURGEON: Dr. Medrano. ANESTHESIA: Local. COMPLICATIONS: None. PROCEDURE: With the patient supine in his bed, after removing the Esteban catheter, the genitalia were prepped and draped in the usual sterile fashion. The urethra was infiltrated with lidocaine jelly. Penile clamp was applied. This was then removed and a flexible cystoscope was introduced under vision. The anterior urethra was normal. The prostate revealed enlargement of the lateral lobe meeting in the midline causing bladder neck obstruction. The bladder was entered and revealed trabeculation and catheter cystitis. No foreign body, bladder tumor, stone visualized. Ureteric orifice is normal. Cystoscopy was confirmed in antegrade fashion and cystoscope was removed. The patient tolerated the procedure and anesthesia well. Remained in his bed in stable condition. After the cystoscope, immediately he voided the amount I left in through the cystoscope with no problem. PLAN: Trial of voiding and manage accordingly. Job ID: [id number] Dictated Date: 09/04/2016 11:44:52 Drafting Engineer Date: 09/05/2016 09:58:18 / steffanie
--- OUTSIDE RECORDS SUMMARY | 2016-09-11 13:06 | XMS REPORT | Continuity of Care Document ---
Author Author [facility] Organization [facility] Address Unknown Phone Unavailable Allergies Active Description Code Type Severity Reaction Onset Reported/Identified Relationship to Patient Clinical Status Yes NKDA NKDA Mild N/A 11/13/2008 Yes No Known Drug Allergies [id number] Drug Allergy Unknown N/ A 09/01/2016 Medications Problems Date Dx Coded Attending Type [...] INTRACTABLE 06/26/2011 Ot 414.01 CORONARY ATHEROSCLEROSIS OF [place] CORON 06/26/2011 Ot 458.9 HYPOTENSION NOS 06/26/2011 [...] NOS 06/28/2011 Ot 414.01 CORONARY ATHEROSCLEROSIS OF [place] CORON 06/28/2011 Ot 438.7 DISTURBANCES OF VISION [...] ESTES MD Ot 414.01 CORONARY ATHEROSCLEROSIS OF [place] CORON 06/12/2012 KALPANA ESTES MD Ot 438.89 [...] ESTES MD Ot 414.01 CORONARY ATHEROSCLEROSIS OF [place] CORON 02/24/2014 KALPANA ESTES MD Ot 496 [...] PERSONAL HISTORY OF TRAUMATIC BRAIN INJU 02/24/2014 KALPNAA ESTES MD Ot V15.82 HISTORY OF TOBACCO USE 02/24/2014 KALPANA ESTES MD Ot V45.82 PERCUTANEOUS TRANSLUM CORON ANGIOPLASTY 02/24/2014 KALPANA ESTES MD Ot V45.89 POSTSURGICAL STATES NEC 02/24/2014 KALPANA ESTES MD Ot V85.31 BODY MASS INDEX 31.0-31.9, ADULT 07/17/2014 PAUL MCQUEEN LOBBYIST Ot 780.79 OTH MALAISE FATIGUE 07/17/2014 PAUL MCQUEEN LOBBYIST Ot 787.01 NAUSEA WITH VOMITING 08/02/2014 KALPANA [...] MD Ot I25.10 ATHSCL HEART DISEASE OF [place] CORONARY 02/14/2015 KESHAV DERAS MD Ot 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 02/14/2015 KESHAV DERAS MD Ot I69.398 OTHER SEQUELAE OF CEREBRAL INFARCTION 02/14/2015 KESHAV DERAS MD Ot I70.201 UNSP ATHSCL [place] [facility] 02/14/2015 KESHAV DERAS MD Ot R94.39 ABNORMAL RESULT OF OTHER CARDIOVASCULAR 02/14/2015 KESHAV DERAS MD Ot Z79.899 OTHER SKILLED NURSING (CURRENT) DRUG THERAPY 02/14/2015 KESHAV DERAS MD [...] 433.10 03/20/2015 Ot 434.91 03/20/2015 MEERA BROWN, [facility] Ot 550.90 03/20/2015 MEERA BROWN, [facility] Ot 562.10 03/20/2015 MEERA BROWN, [facility] Ot 780.93 03/20/2015 MEERA BROWN, [facility] Ot 786.2 03/20/2015 MEERA BROWN, [facility] Ot 345.90 03/20/2015 MEERA BROWN, [facility] Ot 780.79 03/20/2015 MEEAR BROWN, [facility] Ot 959.01 03/20/2015 MEERA BROWN, [facility] Ot E849.0 03/20/2015 MEERA BROWN, [facility] Ot E888.9 03/20/2015 MEERA BROWN, [facility] Ot R06.00 03/20/2015 MEERA BROWN, [facility] Ot R10.11 03/20/2015 MEERA BROWN, [facility] Ot R11.0 03/20/2015 MEERA BROWN, KALPANA J Ot R12 03/20/2015 MEERA BROWN, [facility] Ot R53.1 03/20/2015 BRAEDEN BROWN, KESHAV [...] DO Ot I25.10 ATHSCL HEART DISEASE OF [place] CORONARY 07/08/2015 SUNNI JENNINGS DO Ot R40.0 [...] MD Ot E888.9 FALL NOS 01/23/2016 KALPANA ETSES MD Ot R06.00 DYSPNEA, UNSPECIFIED 01/23/2016 KALPANA [...] R94.31 ABNORMAL ELECTROCARDIOGRAM [ECG] [EKG] 01/23/2016 KESHAV EDRAS MD Ot I10 ESSENTIAL (PRIMARY) HYPERTENSION 01/23/2016 [...] MD Ot I25.10 ATHSCL HEART DISEASE OF [place] CORONARY 01/29/2016 BRYANT WAGNER MD Ot I50.9 [...] DO Ot I25.10 ATHSCL HEART DISEASE OF [place] CORONARY 08/08/2016 RACHEL KEATING DO Ot 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, W OBST, 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, 08/08/2016 RACHEL KEATING DO Ot Z79.899 OTHER RADIOLOGY RN (CURRENT) DRUG THERAPY 08/08/2016 RACHEL KEATING DO Ot Z95.5 PRESENCE OF CORONARY ANGIOPLASTY IMPLANT 08/08/2016 DELMAN DO, RACHEL B Ot 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 08/08/2016 KAYLEENICOLE DO RACHEL B Ot F03.90 UNSPECIFIED DEMENTIA 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L 08/08/2016 ZURI DOPURNIMAIC B Ot F32.9 MAJOR DEPRESSIVE DISORDER, SINGLE EPISOD 08/08/2016 ZURI DO RACHEL B Ot G40.909 EPILEPSY, UNSP, NOT INTRACTABLE, WITHOUT 08/08/2016 DELMAN DO, RACHEL B Ot I10 ESSENTIAL (PRIMARY) HYPERTENSION 08/08/2016 ZURI DOPURNIMAIC B Ot I25.10 ATHSCL HEART DISEASE OF [place] CORONARY 08/08/2016 ZURI DO RACHEL B Ot 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, W OBST, 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, 08/08/2016 ZURI DO RACHEL B Ot Z79.899 OTHER SKILLED NURSING (CURRENT) DRUG THERAPY 08/08/2016 ZURI DO RACHEL B Ot Z95.5 PRESENCE OF CORONARY ANGIOPLASTY IMPLANT 08/11/2016 ZURI DOPURNIMAIC B Ot 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 08/11/2016 ZURI DO RACHEL B Ot F03.90 UNSPECIFIED DEMENTIA 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L 08/11/2016 ZURI DOPURNIMAIC B Ot F32.9 MAJOR DEPRESSIVE DISORDER, SINGLE EPISOD 08/11/2016 ZURI DOPURNIMAIC B Ot G40.909 EPILEPSY, UNSP, NOT INTRACTABLE, WITHOUT 08/11/2016 DELMAN DO, RACHEL B Ot I10 ESSENTIAL (PRIMARY) HYPERTENSION 08/11/2016 ZURI DOPURNIMAIC B Ot I25.10 ATHSCL HEART DISEASE OF [place] CORONARY 08/11/2016 ZURI DOPURNIMAIC B Ot 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, W OBST, 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, 08/11/2016 ZURI DO RACHEL B Ot Z79.899 OTHER SKILLED NURSING (CURRENT) DRUG THERAPY 08/11/2016 ZURI DO RACHEL B Ot Z95.5 PRESENCE OF CORONARY ANGIOPLASTY IMPLANT 08/11/2016 ZURI DO RACHEL B Ot 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 08/11/2016 ZURI DO RACHEL B Ot E87.6 HYPOKALEMIA 08/11/2016 ZURI DO RACHEL B Ot F03.90 UNSPECIFIED DEMENTIA 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L 08/11/2016 RACHEL KEATING DO Ot F32.9 MAJOR DEPRESSIVE DISORDER, SINGLE EPISOD 08/11/2016 RACHEL KEATING DO Ot G20 PARKINSON'S DISEASE 08/11/2016 RACHEL KEATING DO Ot G40.909 EPILEPSY, UNSP, NOT INTRACTABLE, WITHOUT 08/11/2016 RACHEL KEATING DO Ot I10 ESSENTIAL (PRIMARY) HYPERTENSION 08/11/2016 RACHEL KEATING DO Ot I25.10 ATHSCL HEART DISEASE OF [place] CORONARY 08/11/2016 RACHEL KEATING DO Ot I69.398 OTHER SEQUELAE OF CEREBRAL INFARCTION 08/11/2016 RACHEL KEATING DO Ot J44.9 CHRONIC OBSTRUCTIVE PULMONARY DISEASE, U 08/11/2016 RACHEL KEATING DO Ot 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, W OBST, 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, 08/11/2016 RACHEL KEATING DO Ot L40.9 PSORIASIS, [...] DO Ot I25.10 ATHSCL HEART DISEASE OF [place] CORONARY 08/15/2016 RACHEL KEATING DO Ot 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, W OBST, 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, 08/15/2016 RACHEL KEATING DO Ot Z79.899 OTHER RADIOLOGY RN (CURRENT) DRUG THERAPY 08/15/2016 RACHEL KEATING DO Ot Z95.5 PRESENCE OF CORONARY ANGIOPLASTY IMPLANT 08/20/2016 BRYANT WAGNER MD Ot D72.829 ELEVATED WHITE BLOOD CELL COUNT, UNSPECI 08/20/2016 BRYANT WAGNER MD Ot E87.6 HYPOKALEMIA 08/20/2016 BRYANT WAGNER MD Ot F03.90 UNSPECIFIED DEMENTIA 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L 08/20/2016 BRYANT WAGNER MD Ot F03.91 UNSPECIFIED DEMENTIA WITH BEHAVIORAL DIS 08/20/2016 BRYANT WAGNER MD Ot G40.909 EPILEPSY, UNSP, NOT INTRACTABLE, WITHOUT 08/20/2016 BRYANT WAGENR MD Ot H53.9 UNSPECIFIED VISUAL DISTURBANCE 08/20/2016 BRYANT WAGNER MD, Ot I10 ESSENTIAL (PRIMARY) HYPERTENSION 08/20/2016 BRYANT WAGNER MD, Ot I25.10 ATHSCL HEART DISEASE OF [place] CORONARY 08/20/2016 BRYANT WAGNER MD Ot 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 08/20/2016 BRYANT WAGNER MD Ot J44.9 CHRONIC OBSTRUCTIVE PULMONARY DISEASE, U 08/20/2016 BRYANT WAGNER MD Ot M79.604 PAIN IN RIGHT LEG 08/20/2016 BRYANT WAGNER MD, Ot M79.605 PAIN IN LEFT LEG 08/20/2016 BRYANT WAGNER MD Ot N50.89 OTHER SPECIFIED DISORDERS OF THE MALE GE 08/20/2016 BRYANT WAGNER MD Ot R33.9 RETENTION OF URINE, UNSPECIFIED 08/20/2016 BRYANT WAGNER MD Ot R41.0 DISORIENTATION, UNSPECIFIED 08/20/2016 BRYANT WAGNER MD Ot R53.1 WEAKNESS 08/20/2016 BRYANT WAGNER MD Ot R79.1 ABNORMAL COAGULATION PROFILE 08/20/2016 BRYANT WAGNER MD Ot Z91.81 HISTORY OF FALLING 08/20/2016 BRYANT WAGNER MD Ot Z95.5 PRESENCE OF CORONARY ANGIOPLASTY IMPLANT 08/20/2016 BRYANT WAGNER MD Ot Z98.890 OTHER SPECIFIED POSTPROCEDURAL STATES 08/22/2016 RACHEL KEATING DO Ot 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 08/22/2016 RACHEL KEATING DO Ot F03.90 UNSPECIFIED DEMENTIA 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L 08/22/2016 RACHEL KEATING DO Ot F32.9 MAJOR DEPRESSIVE DISORDER, SINGLE EPISOD 08/22/2016 RACHEL KEATING DO B Ot G40.909 EPILEPSY, UNSP, NOT INTRACTABLE, WITHOUT 08/22/2016 RACHEL KEATING DO Ot I10 ESSENTIAL (PRIMARY) HYPERTENSION 08/22/2016 RACHEL KEATING DO Ot I25.10 ATHSCL HEART DISEASE OF [place] CORONARY 08/22/2016 RACHEL KEATING DO Ot 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, W OBST, 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, 08/22/2016 RACHEL KEATING DO Ot Z79.899 OTHER RADIOLOGY RN (CURRENT) DRUG THERAPY 08/22/2016 RACHEL KEATING DO Ot Z95.5 PRESENCE OF CORONARY ANGIOPLASTY IMPLANT 08/30/2016 RAVIN MCCRACKEN MD Ot F03.90 UNSPECIFIED DEMENTIA 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L 08/30/2016 RAVIN MCCRACKEN MD Ot F32.9 MAJOR DEPRESSIVE DISORDER, SINGLE EPISOD 08/30/2016 RAVIN MCCRACKEN MD, Ot G40.909 EPILEPSY, UNSP, NOT INTRACTABLE, WITHOUT 08/30/2016 RAVIN MCCRACKEN MD Ot I10 ESSENTIAL (PRIMARY) HYPERTENSION 08/30/2016 RAVIN MCCRACKEN MD Ot I25.10 ATHSCL HEART DISEASE OF [place] CORONARY 08/30/2016 RAVIN MCCRACKEN MD Ot R33.9 RETENTION OF URINE, UNSPECIFIED 08/30/2016 RAVIN MCCRACKEN MD Ot Z79.82 RADIOLOGY RN (CURRENT) USE OF ASPIRIN 08/30/2016 RAVIN MCCRACKEN MD Ot Z82.49 FAMILY HX OF ISCHEM HEART DIS AND OTH DI 08/30/2016 RAVIN MCCRACKEN MD Ot Z86.73 PRSNL HX OF TIA (TIA), AND CEREB INFRC W 08/30/2016 RAVIN MCCRACKEN MD Ot Z87.19 PERSONAL HISTORY OF OTHER DISEASES OF TH 08/30/2016 RAVIN MCCRACKEN MD Ot Z87.891 PERSONAL HISTORY OF NICOTINE DEPENDENCE 08/30/2016 RAVIN MCCRACKEN MD Ot Z90.89 ACQUIRED ABSENCE OF OTHER ORGANS 08/30/2016 RAVIN MCCRACKEN MD Ot Z95.5 PRESENCE OF CORONARY ANGIOPLASTY IMPLANT 09/01/2016 SANTOSH KINSEY APRN Ot R06.02 SHORTNESS OF BREATH 09/02/2016 RAVIN MCCRACKEN MD Ot F03.90 UNSPECIFIED DEMENTIA 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L 09/02/2016 RAVIN MCCRACKEN MD, Ot F32.9 MAJOR DEPRESSIVE DISORDER, SINGLE EPISOD 09/02/2016 RAVIN MCCRACKEN MD, Ot G40.909 EPILEPSY, UNSP, NOT INTRACTABLE, WITHOUT 09/02/2016 RAVIN MCCRACKEN MD Ot I10 ESSENTIAL (PRIMARY) HYPERTENSION 09/02/2016 RAVIN MCCRACKEN MD, Ot I25.10 ATHSCL HEART DISEASE OF [place] CORONARY 09/02/2016 RAVIN MCCRACKEN MD, Ot R33.9 RETENTION OF URINE, UNSPECIFIED 09/02/2016 RAVIN MCCRACKEN MD, Ot Z79.82 SKILLED NURSING (CURRENT) USE OF ASPIRIN 09/02/2016 RAVIN MCCRACKEN MD, Ot Z82.49 FAMILY HX OF I[place]HE[place] HEART DIS AND OTH DI 09/02/2016 RAVIN MCCRACKEN MD, Ot Z86.73 PRSNL HX OF TIA (TIA), AND CEREB INFRC W 09/02/2016 RAVIN MCCRACKEN MD Ot Z87.19 PERSONAL HISTORY OF OTHER DISEASES OF TH 09/02/2016 RAIVN MCCRACKEN MD, Ot Z87.891 PERSONAL HISTORY OF NICOTINE DEPENDENCE 09/02/2016 RAVIN MCCRACKEN MD Ot Z90.89 ACQUIRED ABSENCE OF OTHER ORGANS 09/02/2016 RAVIN MCCRACKEN MD Ot Z95.5 PRESENCE OF CORONARY ANGIOPLASTY IMPLANT 09/04/2016 BRYANT WAGNER MD Ot A41.51 SEPSIS DUE TO ESCHERICHIA COLI [E. COLI] 09/04/2016 BRYANT WAGNER MD Ot E87.6 HYPOKALEMIA 09/04/2016 BRYANT WAGNER MD Ot F02.80 DEMENTIA IN OTH DISEASES CLASSD ELSWHR W 09/04/2016 BRYANT WAGNER MD, Ot F32.9 MAJOR DEPRESSIVE DISORDER, SINGLE EPISOD 09/04/2016 BRYANT WAGNER MD Ot G20 PARKINSON'S DISEASE 09/04/2016 BRYANT WAGNER MD, Ot G40.909 EPILEPSY, UNSP, NOT INTRACTABLE, WITHOUT 09/04/2016 BRYANT WAGNER MD Ot G93.40 ENCEPHALOPATHY, UNSPECIFIED 09/04/2016 BRYANT WAGNER MD, Ot H53.9 UNSPECIFIED VISUAL DISTURBANCE 09/04/2016 BRYANT WAGNER MD, Ot H91.93 UNSPECIFIED HEARING LOSS, BILATERAL 09/04/2016 BRYANT WAGNRE MD, Ot I10 ESSENTIAL (PRIMARY) HYPERTENSION 09/04/2016 BRYANT WAGNER MD, Ot I25.10 ATHSCL HEART DISEASE OF [place] CORONARY 09/04/2016 BRYANT WAGNER MD, Ot 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 09/04/2016 BRYANT WAGNER MD, Ot J44.9 CHRONIC OBSTRUCTIVE PULMONARY DISEASE, U 09/04/2016 BRYANT WAGNER MD, Ot K40.90 UNIL INGUINAL HERNIA, W/O OBST OR GANGR, 09/04/2016 BRYANT WAGNER MD, Ot N39.0 URINARY TRACT INFECTION, SITE NOT SPECIF 09/04/2016 BRYANT WAGNER MD, Ot R26.0 ATAXIC GAIT 09/04/2016 BRYANT WAGNER MD, Ot R33.9 RETENTION OF URINE, UNSPECIFIED 09/04/2016 BRYANT WAGNER MD, Ot T83.511A I/I REACT D/T INDWELLING URETHRAL CATHET 09/04/2016 BRYANT WAGNER MD Ot Z87.891 PERSONAL HISTORY OF NICOTINE DEPENDENCE 09/04/2016 BRYANT WAGNER MD, Ot Z91.81 HISTORY OF FALLING 09/04/2016 BRYANT WAGNER MD Ot Z95.5 PRESENCE OF CORONARY ANGIOPLASTY IMPLANT 09/04/2016 BRYANT WAGNER MD, Ot A41.51 SEPSIS DUE TO ESCHERICHIA COLI [E. COLI] 09/04/2016 BRYANT WAGNER MD, Ot E87.6 HYPOKALEMIA 09/04/2016 BRYANT WAGNER MD Ot F02.80 DEMENTIA IN OT DISEASES CLASSD ELSWHR W 09/04/2016 BRYANT WAGNER MD, Ot F32.9 MAJOR DEPRESSIVE DISORDER, SINGLE EPISOD 09/04/2016 BRYANT WAGNER MD, Ot G20 PARKINSON'S DISEASE 09/04/2016 BRYANT WAGNER MD, Ot G40.909 EPILEPSY, UNSP, NOT INTRACTABLE, WITHOUT 09/04/2016 BRYANT WAGNER MD Ot G93.40 ENCEPHALOPATHY, UNSPECIFIED 09/04/2016 BRYANT WAGNER MD, Ot H53.9 UNSPECIFIED VISUAL DISTURBANCE 09/04/2016 BRYANT WAGNER MD, Ot H91.93 UNSPECIFIED HEARING LOSS, BILATERAL 09/04/2016 BRYANT WAGNER MD Ot I10 ESSENTIAL (PRIMARY) HYPERTENSION 09/04/2016 BRYANT WAGNER MD, Ot I25.10 ATHSCL HEART DISEASE OF [place] CORONARY 09/04/2016 BRYANT WAGNER MD Ot 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 09/04/2016 BRYANT WAGNER MD, Ot J44.9 CHRONIC OBSTRUCTIVE PULMONARY DISEASE, U 09/04/2016 BRYANT WAGNER MD Ot K40.90 UNIL INGUINAL HERNIA, W/O OBST OR GANGR, 09/04/2016 BRYANT WAGNER MD, Ot N39.0 URINARY TRACT INFECTION, SITE NOT SPECIF 09/04/2016 BRYANT WAGNER MD, Ot N40.1 BENIGN PROSTATIC HYPERPLASIA WITH LOWER 09/04/2016 BRYANT WAGNER MD, Ot R26.0 ATAXIC GAIT 09/04/2016 BRYANT WAGNER MD Ot R33.8 OTHER RETENTION OF URINE 09/04/2016 BRYANT WAGNER MD, Ot R33.9 RETENTION OF URINE, UNSPECIFIED 09/04/2016 BRYANT WAGNER MD Ot T83.511A I/I REACT D/T INDWELLING URETHRAL CATHET 09/04/2016 BRYANT WAGNER MD, Ot Z87.891 PERSONAL HISTORY OF NICOTINE DEPENDENCE 09/04/2016 BRYANT WAGNER MD Ot Z91.81 HISTORY OF FALLING 09/04/2016 BRYANT WAGNER MD, Ot Z95.5 PRESENCE OF CORONARY ANGIOPLASTY IMPLANT Procedures Code Description Performed By Performed On 81.92 INJECTION INTO JOINT 06/25/2011 99.23 INJECT STEROID 03.31 SPINAL TAP 2014 [id number] EXCISION OF LEFT SPERMATIC CORD, OPEN AP 08/08/2016 [id number] REPAIR LEFT INGUINAL REGION, OPEN APPROA 08/08/2016 [id number] INSPECTION OF BLADDER, ENDO 09/04/2016 Encounters ACCT No. Visit Date/Time Discharge Status Pt. Type Provider Facility Loc./Unit Complaint [id number] 09/01/2016 12:45:00 2016 14:00:00 DIS Outpatient BRYANT WAGNER MD [facility] 4TH AMS/UTI [id number] 08/30/2016 21:52:00 2016 22:35:00 DIS Emergency KAYKAY BROWN, RAVIN [place] [facility] ER URINATION DIFFICULTIES [id number] 08/18/2016 02:21:00 2016 11:23:00 DIS Inpatient BRYANT WAGNER MD [facility] 4TH FALL 2 TIMES; REPORTED LEG PAIN - WEAKNESS [id number] 08/10/2016 02:10:00 2016 16:40:00 DIS Inpatient RACHEL KEATING DO [facility] 4TH DIVERTICULITIS, SIGMOID FATIGUE NEUROSIS [id number] 08/08/2016 12:32:00 2016 16:53:00 DIS [facility] HERNIA [id number] 05/06/2016 09:00:00 2016 00:01:00 DIS Outpatient SANTOSH KINSEY APRN [facility] PULM DYSPNEA [id number] 01/23/2016 21:05:00 2015 16:15:00 DIS Inpatient BRYANT WAGNER MD Via [address] SEPSIS, COLITIS, URINARY OBSTRUCTION, [id number] 07/07/2015 04:35:00 2015 12:46:00 DIS Inpatient SUNNI JENNINGS DO [facility] 4TH DILANTIN TOXICITY [id number] 03/19/2015 19:40:00 2015 06:45:00 DIS Outpatient GRISELDA RAMIREZ DO [facility] SLEEP SNORING, EXCESSIVE DAYTIME SLEEPINESS [id number] 02/14/2015 06:55:00 2015 13:40:00 DIS Outpatient KESHAV DERAS MD [facility] CATH ABNORMAL STRESS TEST,CAD,HTN,HLP,SOB [id number] 12/13/2014 09:26:00 2014 23:59:59 CLS Outpatient KALPANA ESTES MD [facility] RAD NAUSEA,ABD PAIN,HEART BURN [id number] 07/17/2014 18:12:00 2014 20:51:00 DIS Emergency PAUL MCQUEEN LOBBYIST [facility] ER NAUSEA/VOMITING [id number] 07/13/2014 07:30:00 2014 23:59:59 CLS Outpatient KALPANA ESTES MD [facility] RAD RECENT HEAD TRAUMA [id number] 02/20/2014 18:45:00 2014 11:05:00 DIS Inpatient KALPANA ESTES MD [facility] 4TH ALTERED MENTAL STATUS;SEIZURE DISORDER [id number] 11/16/2013 13:43:00 2013 17:44:00 DIS Emergency CLIFF ELI MD [facility] ER SOA/RIGHT RIB PAIN [id number] 06/14/2013 07:24:00 2013 23:59:59 CLS Outpatient KALPANA ESTES MD [facility] RAD STOMACH DISCOMFORT, CHONIC COUGH, HX OF CVA [id number] 06/08/2012 13:03:00 2012 12:42:00 DIS Inpatient KALPANA ESTES MD [facility] 4TH PNEUMONIA,SEIZURE [id number] 06/02/2016 15:00:00 PEN Preadmit SANTOSH KINSEY LOBBYIST [facility] PULM DYSPNEA [id number] 09/12/2015 12:52:00 ACT Outpatient GRISELDA RAMIREZ DO [facility] RT DYSPNEA [id number] 01/22/2015 07:45:00 ACT Outpatient KESHAV DERAS MD [facility] CARD CVA,ABNORMAL EKG,HTN,SEIZURE, DYSPNEA [id number] 01/12/2015 13:50:00 ACT Outpatient KESHAV DERAS MD [facility] RAD CVA,ABNORMAL EKG,DYSPNEA,HTN,SEIZURE [id number] 04/12/2012 08:56:00 Document Registration [id number] 06/26/2011 10:30:00 Document Registration [id number] 06/22/2011 16:35:00 Document Registration [id number] 03/20/2011 09:04:00 Document Registration [id number] 01/13/2011 14:29:00 Document Registration [id number] 01/01/2011 13:44:00 Document Registration [id number] 11/20/2010 18:14:00 Document Registration [id number] 11/20/2010 13:43:00 Document Registration [id number] 11/20/2010 10:18:00 Document Registration [id number] 10/01/2010 12:53:00 Document Registration [id number] 01/15/2010 09:44:00 Document Registration [id number] 11/14/2009 09:15:00 Document Registration [id number] 11/13/2009 09:28:00 Document Registration [id number] 11/09/2009 09:49:00 Document Registration
--- OUTSIDE RECORDS SUMMARY | 2016-09-11 19:27 | XMS REPORT | Continuity of Care Document ---
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 06/28/2011 Ot 438.7 DISTURBANCES OF VISION [...] ESTES MD Ot 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 06/12/2012 KALPANA ESTES MD Ot 438.89 [...] ESTES MD Ot 278.00 OBESITY, NOS 02/24/2014 KAPLANA ESTES MD Ot 293.0 DELIRIUM DUE TO [...] ESTES MD Ot 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 02/24/2014 KALPANA ESTES MD Ot 496 [...] MASS INDEX 31.0-31.9, ADULT 07/17/2014 PAUL MCQUEEN RELOCATION COORDINATOR Ot 780.79 OTH MALAISE FATIGUE 07/17/2014 PAUL MCQUEEN RELOCATION COORDINATOR Ot 787.01 NAUSEA WITH VOMITING 08/02/2014 KALPANA [...] Mcdermott Ot 786.2 01/12/2015 MEERA BROWN, KALPANA Mdcermott Ot 345.90 01/12/2015 MEERA BROWN, KALPANA Mcdermott [...] MD Ot 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 02/14/2015 KESHAV DERAS MD Ot 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 02/14/2015 KESHAV DERAS MD Ot I69.398 OTHER SEQUELAE OF CEREBRAL INFARCTION 02/14/2015 KESHAV DERAS MD Ot I70.201 UNSP ATHSCL CIRCLE ARTERIES OF [facility] 02/14/2015 KESHAV DERAS MD Ot R94.39 ABNORMAL RESULT OF OTHER CARDIOVASCULAR 02/14/2015 KESHAV DERAS MD Ot Z79.899 OTHER JAIL (CURRENT) DRUG THERAPY 02/14/2015 KESHAV DERAS MD [...] 433.10 03/20/2015 Ot 434.91 03/20/2015 MEERA BROWN, [facility] Ot 550.90 03/20/2015 MEERA BROWN, [facility] Ot 562.10 03/20/2015 MEERA BROWN, [facility] Ot 780.93 03/20/2015 MEERA BROWN, [facility] Ot 786.2 03/20/2015 MEERA BROWN, [facility] Ot 345.90 03/20/2015 MEERA BROWN, [facility] Ot 780.79 03/20/2015 MEERA BROWN, [facility] Ot 959.01 03/20/2015 MEERA BROWN, [facility] Ot E849.0 03/20/2015 MEERA BROWN, [facility] Ot E888.9 03/20/2015 MEERA BROWN, [facility] Ot R06.00 03/20/2015 MEERA BROWN, [facility] Ot R10.11 03/20/2015 MEERA BROWN, [facility] Ot R11.0 03/20/2015 MEERA BROWN, KALPANA J Ot R12 03/20/2015 MEERA BROWN, [facility] Ot R53.1 03/20/2015 BRAEDEN BROWN, KESHAV [...] DO Ot 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 07/08/2015 SUNNI JENNINGS DO Ot R40.0 [...] KALPANA ESTES MD Ot R11.0 NAUSEA 01/23/2016 KLAPANA ESTES MD Ot R12 HEARTBURN 01/23/2016 KALPANA [...] MD Ot 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 01/29/2016 BRYANT WAGNER MD Ot I50.9 [...] Ot I10 ESSENTIAL (PRIMARY) HYPERTENSION 08/08/2016 RACHEL KEATNIG DO Ot 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 08/08/2016 RACHEL KEATING DO Ot 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, W OBST, W/O GANGR, 08/08/2016 RACHEL KEATING DO Ot Z79.899 OTHER ALODIZE MACHINE OPERATOR (CURRENT) DRUG THERAPY 08/08/2016 RACHEL KEATING DO [...] B Ot 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 08/08/2016 ZURI DO RACHEL B Ot 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, W OBST, W/O GANGR, 08/08/2016 ZURI DO RACHEL B Ot Z79.899 OTHER JAIL (CURRENT) DRUG THERAPY 08/08/2016 ZURI DO RACHEL [...] B Ot 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 08/11/2016 ZURI DOPURNIMAIC B Ot 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, W OBST, W/O GANGR, 08/11/2016 ZURI DO RACHEL B Ot Z79.899 OTHER JAIL (CURRENT) DRUG THERAPY 08/11/2016 ZURI DO RACHEL [...] DO Ot 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 08/11/2016 RACHEL KEATING DO Ot I69.398 [...] DO Ot 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 08/15/2016 RACHEL KEATING DO Ot 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, W OBST, W/O GANGR, 08/15/2016 RACHEL KEATING DO Ot Z79.899 OTHER ALODIZE MACHINE OPERATOR (CURRENT) DRUG THERAPY 08/15/2016 RACHEL KEATING DO Ot Z95.5 PRESENCE OF CORONARY ANGIOPLASTY IMPLANT 08/20/2016 BRYANT WAGNER MD Ot D72.829 ELEVATED WHITE BLOOD CELL COUNT, UNSPECI 08/20/2016 BRYANT WAGNER MD Ot E87.6 HYPOKALEMIA 08/20/2016 BRYANT WAGNER MD Ot F03.90 UNSPECIFIED DEMENTIA 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L 08/20/2016 BRYANT WANGER MD Ot F03.91 UNSPECIFIED DEMENTIA WITH BEHAVIORAL DIS 08/20/2016 BRYANT WAGNER MD Ot G40.909 EPILEPSY, UNSP, NOT INTRACTABLE, WITHOUT 08/20/2016 BRYANT WAGNER MD Ot H53.9 UNSPECIFIED VISUAL DISTURBANCE 08/20/2016 BRYANT WAGNER MD, Ot I10 ESSENTIAL (PRIMARY) HYPERTENSION 08/20/2016 BRYANT WAGNER MD, Ot 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 08/20/2016 BRYANT WAGNER MD Ot I69.898 [...] DO Ot 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 08/22/2016 RACHEL KEATING DO Ot 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, W OBST, W/O GANGR, 08/22/2016 RACHEL KEATING DO Ot Z79.899 OTHER ALODIZE MACHINE OPERATOR (CURRENT) DRUG THERAPY 08/22/2016 RACHEL KEATING DO [...] MD Ot 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 08/30/2016 RAVIN MCCRACKEN MD Ot R33.9 RETENTION OF URINE, UNSPECIFIED 08/30/2016 RAVIN MCCRACKEN MD Ot Z79.82 ALODIZE MACHINE OPERATOR (CURRENT) USE OF ASPIRIN 08/30/2016 RAVIN MCCRACKEN [...] MD, Ot 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 09/02/2016 RAVIN MCCRACKEN MD, Ot R33.9 RETENTION OF URINE, UNSPECIFIED 09/02/2016 RAVIN MCCRACKEN MD, Ot Z79.82 JAIL (CURRENT) USE OF ASPIRIN 09/02/2016 RAVIN MCCRACKEN MD, Ot Z82.49 FAMILY HX OF ISCHEM HEART DIS AND OTH DI 09/02/2016 RAVIN MCCRACKEN MD, Ot Z86.73 PRSNL HX OF TIA (TIA), AND CEREB INFRC W 09/02/2016 RAVIN MCCRACKEN MD Ot Z87.19 PERSONAL HISTORY OF OTHER DISEASES OF TH 09/02/2016 RAVIN MCCRACKEN MD, Ot Z87.891 PERSONAL HISTORY OF [...] UNSPECIFIED HEARING LOSS, BILATERAL 09/04/2016 BRYANT WAGNER MD, Ot I10 ESSENTIAL (PRIMARY) HYPERTENSION 09/04/2016 BRYANT WAGENR MD, Ot 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 Visit Date/Time Discharge Status Pt. Type Provider Facility Loc./Unit Complaint [id number] 09/01/2016 12:45:00 2016 14:00:00 DIS Outpatient BRYANT WAGNER MD [facility] 4TH AMS/UTI [id number] 08/30/2016 21:52:00 2016 22:35:00 DIS Emergency KAYKAY BROWN, R[place]IN [place] [facility] ER URINATION DIFFICULTIES [id number] 08/18/2016 02:21:00 2016 11:23:00 DIS Inpatient BRYANT WAGNER MD [facility] 4TH FALL 2 TIMES; REPORTED LEG PAIN - WEAKNESS [id number] 08/10/2016 02:10:00 2016 16:40:00 DIS Inpatient RACHEL KEATING DO [facility] 4TH DIVERTICULITIS, SIGMOID FATIGUE NEUROSIS [id number] 08/08/2016 12:32:00 2016 16:53:00 DIS [facility] HERNIA [id number] 05/06/2016 09:00:00 2016 00:01:00 DIS Outpatient SANTOSH KINSEY APRN [facility] PULM DYSPNEA [id number] 01/23/2016 21:05:00 2015 16:15:00 DIS Inpatient BRYANT WAGNER MD Via [address] SEPSIS, COLITIS, URINARY OBSTRUCTION, [id number] 07/07/2015 04:35:00 2015 12:46:00 DIS Inpatient SUNNI JENNINGS DO [facility] 4TH DILANTIN TOXICITY [id number] 03/19/2015 19:40:00 2015 06:45:00 DIS Outpatient GRISELDA RAMIREZ DO [facility] SLEEP SNORING, EXCESSIVE DAYTIME SLEEPINESS [id number] 02/14/2015 06:55:00 2015 13:40:00 DIS Outpatient KESHAV DERAS MD [facility] CATH ABNORMAL STRESS TEST,CAD,HTN,HLP,SOB [id number] 12/13/2014 09:26:00 2014 23:59:59 CLS Outpatient KALPANA ESTES MD [facility] RAD NAUSEA,ABD PAIN,HEART BURN [id number] 07/17/2014 18:12:00 2014 20:51:00 DIS Emergency PAUL MCQUEEN RELOCATION COORDINATOR [facility] ER NAUSEA/VOMITING [id number] 07/13/2014 07:30:00 2014 23:59:59 CLS Outpatient KALPANA ESTES MD [facility] RAD RECENT HEAD TRAUMA [id number] 02/20/2014 18:45:00 2014 11:05:00 DIS Inpatient KALPANA ESTES MD [facility] 4TH ALTERED MENTAL STATUS;SEIZURE DISORDER [id number] 11/16/2013 13:43:00 2013 17:44:00 DIS Emergency CLIFF ELI MD [facility] ER SOA/RIGHT RIB PAIN [id number] 06/14/2013 07:24:00 2013 23:59:59 CLS Outpatient KALPANA ESTES MD [facility] RAD STOMACH DISCOMFORT, CHONIC COUGH, HX OF CVA [id number] 06/08/2012 13:03:00 2012 12:42:00 DIS Inpatient KALPANA ESTES MD [facility] 4TH PNEUMONIA,SEIZURE [id number] 09/11/2016 08:53:00 Document Registration [id number] 06/02/2016 15:00:00 PEN Preadmit SANTOSH KINSEY APRN [facility] PULM DYSPNEA [id number] 09/12/2015 12:52:00 ACT Outpatient GRISELDA RAMIREZ DO [facility] RT DYSPNEA [id number] 01/22/2015 07:45:00 ACT Outpatient KESHAV DERAS MD [facility] CARD CVA,ABNORMAL EKG,HTN,SEIZURE, DYSPNEA [id number] 01/12/2015 13:50:00 ACT Outpatient KESHAV DERAS MD [facility] RAD CVA,ABNORMAL EKG,DYSPNEA,HTN,SEIZURE [id number] 04/12/2012 08:56:00 Document Registration [id number] 06/26/2011 10:30:00 Document Registration [id number] 06/22/2011 16:35:00 Document Registration [id number] 03/20/2011 09:04:00 Document Registration [id number] 01/13/2011 14:29:00 Document Registration [id number] 01/01/2011 13:44:00 Document Registration [id number] 11/20/2010 18:14:00 Document Registration [id number] 11/20/2010 13:43:00 Document Registration [id number] 11/20/2010 10:18:00 Document Registration [id number] 10/01/2010 12:53:00 Document Registration [id number] 01/15/2010 09:44:00 Document Registration [id number] 11/14/2009 09:15:00 Document Registration [id number] 11/13/2009 09:28:00 Document Registration [id number] 11/09/2009 09:49:00 Document Registration
[2016-10-28] MEDS ORDERED: METR500T21 PO (08:22)
[2016-10-28] MEDS ORDERED: VANC125C4 PO (08:32)
== END 2016-09-04 14:00 | DRG 698 ==
LOC: EDUNIT# 09:53 → ER 09:54 → 4TH 12:45
PROVIDERS: ADMIT Family Medicine; ATTEND Family Medicine
PROC: 0TJB8ZZ Inspection of Bladder, Via Natural or Artificial Opening Endoscopic (ICD-10-PCS; principal; 2016-09-04 11:15)
DX: T83.511A Infection and inflammatory reaction due to indwelling urethral catheter, initial encounter (principal); A41.51 Sepsis due to Escherichia coli [E. coli]; N39.0 Urinary tract infection, site not specified; G93.40 Encephalopathy, unspecified; N40.1 Benign prostatic hyperplasia with lower urinary tract symptoms; R33.8 Other retention of urine; E87.6 Hypokalemia; J44.9 Chronic obstructive pulmonary disease, unspecified; I25.10 Atherosclerotic heart disease of native coronary artery without angina pectoris; I10 Essential (primary) hypertension; R26.0 Ataxic gait; F02.80 Dementia in other diseases classified elsewhere, unspecified severity, without behavioral disturbance, psychotic disturbance, mood disturbance, and anxiety; G20 Parkinson's disease; G40.909 Epilepsy, unspecified, not intractable, without status epilepticus; I69.898 Other sequelae of other cerebrovascular disease; H53.9 Unspecified visual disturbance; F32.9 Major depressive disorder, single episode, unspecified; H91.93 Unspecified hearing loss, bilateral; K40.90 Unilateral inguinal hernia, without obstruction or gangrene, not specified as recurrent; Z95.5 Presence of coronary angioplasty implant and graft; Z87.891 Personal history of nicotine dependence; Z91.81 History of falling
CPT/HCPCS: 36415; 51702; 70450; 71010; 80053; 80069; 81000; 83605; 83735; 84153; 84484; 85007; 85025; 85027; 85379; 85610; 85730; 87040; 87088; 87186; 93005; 93041; 96361; 96365

== ENCOUNTER 2016-09-11 08:25 | Inpatient (IN) | payer MEDICARE ==
[~2016-09-11] VITALS: Ht 182.9 cm; Wt 100.0 kg
[2016-09-11] VITALS (14 sets, daily range): BP systolic 138–179; BP diastolic 79–116
[~2016-09-11 08:25] MED LIST changes: +CEPH500C PO; +POTA20TA8 PO; +PROP40TA5 PO; +RISP1TAB3 PO; +VIT-8 PO
[2016-09-11] MEDS ORDERED: NS IV 1000 ML 1,000 ML IV ONE (08:39)
[2016-09-11 08:46] LABS: KETONES,URINE 1+ (NEGATIVE); LEUKOCYTE ESTERASE ,URINE 3+ (NEGATIVE); NITRITE,URINE NEGATIVE (NEGATIVE); PH,URINE 5 (5-9); PROTEIN,URINE 3+ (NEGATIVE); UROBILINOGEN,URINE 1 MG/DL (NORMAL)
[2016-09-11 08:50] LABS: BASOPHILS % (AUTO) 0 % (0-10); EOSINOPHILS # (AUTO) 0.1 10^3/uL (0.0-0.3); EOSINOPHILS % (AUTO) 1 % (0-10); LYMPHOCYTES # (AUTO) 0.7 X 10^3 (1.0-4.0); LYMPHOCYTES % (AUTO) 3 % (12-44); MEAN CORPUSCULAR HEMOGLOBIN 29 PG (25-34); MEAN CORPUSCULAR HGB CONC 33 G/DL (32-36); MEAN CORPUSCULAR VOLUME 90 FL (80-99); MEAN PLATELET VOLUME 9.4 FL (7.4-10.4); MONOCYTES # (AUTO) 2.2 X 10^3 (0.0-1.0); MONOCYTES % (AUTO) 10 % (0-12); NEUTROPHILS % (AUTO) 86 % (42-75); PLATELET COUNT 233 10^3/uL (130-400); RED BLOOD COUNT 5.03 10^6/uL (4.35-5.85); RED CELL DISTRIBUTION WIDTH 14.6 % (10.0-14.5); WHITE BLOOD COUNT 22.1 10^3/uL (4.3-11.0)
[2016-09-11 08:55] LABS: BILIRUBIN,URINE 1+ (NEGATIVE)
[2016-09-11 09:03] LABS: INR 1.1 (0.8-1.4); PROTHROMBIN TIME PATIENT 14.2 SEC (12.2-14.7)
--- NOTE | 2016-09-11 09:07 | Diagnostic Imaging Report ---
CLINICAL INDICATION: Patient altered mental status. EXAM: Portable chest x-ray upright view. COMPARISON: Portable chest x-ray dated 09/01/2016. FINDINGS: Again seen slight low lung volumes with suspected mild bibasilar atelectasis. Stable cardiomegaly with no significant pulmonary vascular congestion. Stable curvilinear area overlying the right chest region and correlation for prior surgical change suggested. There is no pleural effusion or pneumothorax. There are degenerative spurs seen throughout the spine. IMPRESSION: 1.: Stable chest x-ray exam with cardiomegaly and no significant pulmonary vascular congestion. 2: Stable slight low lung volumes with suspected mild bibasilar atelectasis. Dictated by: Dictated on workstation # [id number]
[2016-09-11 09:13] LABS: ALANINE AMINOTRANSFERASE 42 U/L (0-55); ALBUMIN 4.2 GM/DL (3.2-4.5); ANION GAP 11 MMOL/L (5-14); ASPARTATE AMINO TRANSFERASE 20 U/L (5-34); BILIRUBIN,TOTAL 0.8 MG/DL (0.1-1.0); BLOOD UREA NITROGEN 10 MG/DL (7-18); BUN/CREATININE RATIO 15; CALCIUM 9.1 MG/DL (8.5-10.1); CARBON DIOXIDE 21 MMOL/L (21-32); CHLORIDE 101 MMOL/L (98-107); CREATININE SERUM 0.65 MG/DL (0.60-1.30); GFR ESTIMATED > 60; GLUCOSE 139 MG/DL (70-105); POTASSIUM 3.9 MMOL/L (3.6-5.0); SODIUM 133 MMOL/L (135-145); TOTAL PROTEIN 7.8 GM/DL (6.4-8.2)
[2016-09-11] MEDS ORDERED: cefTRIAXone INJECTION 1,000 MG in NS (IVPB) 50 ML IV ONE (09:15)
--- NOTE | 2016-09-11 09:34 | ED General ---
General Chief Complaint: Altered Mental Status Stated Complaint: AMS Nursing Triage Note: ARRIVED VIA EMS FROM [facility] FOR AMS. EMS STATES HE HAD A NEW CATH PLACED A COUPLE OF DAYS AGO. GROUP HOME REPORTS SLIGHTLY CONFUSED, UNABLE TO FOLLOW COMMANDS AND KEEPS SAYING "HELP ME". BROUGHT TO BEDSIDE SOON PT ARRIVED TO ER. Nursing Sepsis Screen: Possible Severe Sepsis Risk Source of Information: Patient Exam Limitations: No Limitations History of Present Illness Time Seen by Provider: 08:29 Initial Comments This patient presents to the emergency room via EMS from the longterm with altered mental status. He is normally talkative and up walking around. According to longterm staff he would not get up this morning and repeatedly stated "help me". He recently had a Esteban catheter replaced. He has had multiple admissions recently including admission for urinary tract infection. He is noted to be significantly tachycardic and hypertensive this morning. He also had a hernia repair in July. He has poor functional capacity at baseline due to Parkinson's disease and tremors. His primary care providers Dr. Oliver Wagner. His urologist is Dr. Ledezma. He is accompanied by his . Allergies and Home Medications Allergies Coded Allergies: No Known Drug Allergies (Unverified , 09/01/16) Home Medications Acetaminophen 500 Mg Tablet, 1,000 MG PO HS PRN for PAIN-MILD, (Reported) TAKES 2 (500 MG) TABLETS Aspirin 81 Mg Tablet.dr, 81 MG PO DAILY, (Reported) Cephalexin 500 Mg Capsule, 500 MG PO BID for 7 Days, (Reported) 7 DAY THERAPY START DATE 09-04-16 Hydrocodone/Acetaminophen 1 Each Tablet, 1 TAB PO Q8H PRN for PAIN-MODERATE, ( Reported) Levetiracetam 500 Mg Tablet, 500 MG PO BID, (Reported) Losartan Potassium 100 Mg Tablet, 100 MG PO DAILY, (Reported) Magnesium Oxide 400 Mg Tablet, 400 MG PO BID, (Reported) Montelukast Sodium 10 Mg Tablet, 10 MG PO DAILY, (Reported) Latta 3 Polyunsat Fatty Acids 1,000 Mg Cap, 1,000 MG PO DAILY, (Reported) Phenytoin Sodium Extended 100 Mg Capsule, 200 MG PO BID, (Reported) TAKES 2 (100 MG) CAPSULES Potassium Chloride 20 Meq Tablet.er, 20 MEQ PO DAILY, (Reported) Propranolol HCl 40 Mg Tablet, 40 MG PO BID, (Reported) Risperidone 1 Mg Tablet, 1 MG PO BID, (Reported) Sertraline HCl 100 Mg Tablet, 100 MG PO DAILY, (Reported) Tamsulosin HCl 0.4 Mg Cap.er.24h, 0.4 MG PO 1800, (Reported) Vit A/C/E AC/Znox/Cupric Oxide 1 Each Tablet, 1 TAB PO HS, (Reported) Constitutional: see HPI EENTM: no symptoms reported Respiratory: no symptoms reported Cardiovascular: see HPI Gastrointestinal: no symptoms reported Genitourinary: see HPI Musculoskeletal: no symptoms reported Skin: no symptoms reported Psychiatric/Neurological: See HPI Hematologic/Lymphatic: No Symptoms Reported Immunological/Allergic: no symptoms reported Past Cbxnvxx-Umpvkz-Wafxbc Hx Patient Social History Alcohol Use: Denies Use Recreational Drug Use: No Type Used: Pipe Former Smoker/When Quit: Feb 14, 2011 2nd Hand Smoke Exposure: No Recent Foreign Travel: No Contact w/Someone Who Travel: No Recent Infectious Disease Expo: No Recent Hopitalizations: No Immunizations Up To Date Tetanus Booster (TDap): Less than 5yrs PED Vaccines UTD: No Date of Pneumonia Vaccine: June 10, 2012 Seasonal Allergies Seasonal Allergies: No Surgeries HX Surgeries: Yes (BOOP-LUNG SURGERY, CATARACTS, DETACHED RETINA) Surgeries: Coronary Stent, Eye Surgery, Tonsillectomy Respiratory Hx Respiratory Disorders: Yes Respiratory Disorders: COPD Cardiovascular Hx Cardiac Disorders: Yes (STENT) Cardiac Disorders: Coronary Artery Disease, Hypertension Neurological Hx Neurological Disorders: Yes Neurological Disorders: Dementia, Parkinson's Disease, Seizure Disorder, Stroke Reproductive System Hx Reproductive Disorders: No Sexually Transmitted Disease: No HIV/AIDS: No Genitourinary Hx Genitourinary Disorders: Yes (pt admits to trouble urinating for years) Gastrointestinal Hx Gastrointestinal Disorders: No Gastrointestinal Disorders: Hiatal Hernia Musculoskeletal Hx Musculoskeletal Disorders: No Endocrine Hx Endocrine Disorders: No HEENT HX ENT Disorders: Yes (DETACHED RETINA HX, vision deficits from stroke) HEENT Disorders: Cataract, Eye Injury Loss of Vision: Bilateral Hearing Impairment: Hard of Hearing Cancer Hx Cancer: No Psychosocial Hx Psychiatric Problems: Yes Behavioral Health Disorders: Depression Integumentary HX Skin/Integumentary Disorder: Yes Skin/Integumentary Disorders: Psoriasis Blood Transfusions Hx Blood Disorders: No Adverse Reaction to a Blood Tr: No Family Medical History Significant Family History: CAD Over 55 Years Old Family Medial History: Cardiovascular disease 19 FATHER, Onset:Unknown Cataracts 19 MOTHER, Onset:Unknown FH: stomach cancer 19 MOTHER, Onset:Unknown Glaucoma 19 MOTHER, Onset:Unknown Physical Exam Vital Signs Vital Sign - Last 12Hours 09/11/16 09/11/16 08:25 10:47 Temp 98.2 Pulse 123 Resp 20 B/P (MAP) 178/119 Pulse Ox 93 O2 Delivery Room Air Capillary Refill : Less Than 3 Seconds General Appearance: WD/WN, Mild Distress HEENT: PERRL/EOMI, Normal ENT Inspection, Pharynx Normal Neck: Normal Inspection Respiratory: Lungs Clear, Normal Breath Sounds, No Accessory Muscle Use, No Respiratory Distress Cardiovascular: No Edema, No Murmur, Tachycardia (regular) Gastrointestinal: Normal Bowel Sounds, Non Tender, Soft Back: Normal Inspection Extremity: Normal Capillary Refill, Normal Inspection, No Pedal Edema Neurologic/Psychiatric: Alert, Motor Weakness, Other (disoriented to date and time. Oriented to person and place. Only follows some instructions. Tremor of the right upper extremity) Skin: Normal Color, Warm/Dry, Other (mottling of the abdomen and extremities which states is chronic and at baseline) Focused Exam Lactic Acid Level Progress/Results/Core Measures Results/Orders Lab Results Laboratory Tests Test 09/11/16 08:24 09/11/16 08:30 09/11/16 08:45 09/12/16 00:50 Range/Units White Blood Count 22.1 H 4.3-11.0 10^3/uL Red Blood Count 5.03 4.35-5.85 10^6/uL Hemoglobin 14.8 13.3-17.7 G/DL Hematocrit 45 40-54 % Mean Corpuscular Volume 90 80-99 FL Mean Corpuscular Hemoglobin 29 25-34 PG Mean Corpuscular Hemoglobin Concent 33 32-36 G/DL Red Cell Distribution Width 14.6 H 10.0-14.5 % Platelet Count 233 130-400 10^3/uL Mean Platelet Volume 9.4 7.4-10.4 FL Neutrophils (%) (Auto) 86 H 42-75 % Lymphocytes (%) (Auto) 3 L 12-44 % Monocytes (%) (Auto) 10 0-12 % Eosinophils (%) (Auto) 1 0-10 % Basophils (%) (Auto) 0 0-10 % Neutrophils # (Auto) 19.0 H 1.8-7.8 X 10^3 Lymphocytes # (Auto) 0.7 L 1.0-4.0 X 10^3 Monocytes # (Auto) 2.2 H 0.0-1.0 X 10^3 Eosinophils # (Auto) 0.1 0.0-0.3 10^3/uL Basophils # (Auto) 0.0 0.0-0.1 10^3/uL Neutrophils % (Manual) 88 % Lymphocytes % (Manual) 1 % Monocytes % (Manual) 8 % Band Neutrophils 3 % Blood Morphology Comment NORMAL Prothrombin Time 14.2 12.2-14.7 SEC INR Comment 1.1 0.8-1.4 Activated Partial Thromboplast Time 41 H 24-35 SEC Sodium Level 133 L 135-145 MMOL/L Potassium Level 3.9 3.6-5.0 MMOL/L Chloride Level 101 98-107 MMOL/L Carbon Dioxide Level 21 21-32 MMOL/L Anion Gap 11 5-14 MMOL/L Blood Urea Nitrogen 10 7-18 MG/DL Creatinine 0.65 0.60-1.30 MG/DL Estimat Glomerular Filtration Rate > 60 BUN/Creatinine Ratio 15 Glucose Level 139 H 70-105 MG/DL Lactic Acid Level 1.13 0.50-2.00 MMOL/L Calcium Level 9.1 8.5-10.1 MG/DL Total Bilirubin 0.8 0.1-1.0 MG/DL Aspartate Amino Transf (AST/SGOT) 20 5-34 U/L Alanine Aminotransferase (ALT/SGPT) 42 0-55 U/L Alkaline Phosphatase 168 H 40-136 U/L Total Protein 7.8 6.4-8.2 GM/DL Albumin 4.2 3.2-4.5 GM/DL Urine Color YELLOW Urine Clarity SLIGHTLY CLOUDY Urine pH 5 5-9 Urine Specific [place] 1.020 1.016-1.022 Urine Protein 3+ H NEGATIVE Urine Glucose (UA) NEGATIVE NEGATIVE Urine Ketones 1+ H NEGATIVE Urine Nitrite NEGATIVE NEGATIVE Urine Bilirubin 1+ H NEGATIVE Urine Urobilinogen 1 NORMAL MG/DL Urine Leukocyte Esterase 3+ H NEGATIVE Urine RBC (Auto) 5+ H NEGATIVE Urine RBC 10-25 H /HPF Urine WBC 10-25 H /HPF Urine Crystals NONE /LPF Urine Bacteria FEW H /HPF Urine Casts NONE /LPF Urine Mucus SMALL H /LPF Urine Culture Indicated YES C-Reactive Protein High Sensitivity 6.11 H 0.00-0.50 MG/DL Blood Gas Puncture Site L RAD Blood Gas Patient Temperature 98.6 Arterial Blood pH 7.47 H 7.37-7.43 Arterial Blood Partial Pressure CO2 27 L 35-45 MMHG Arterial Blood Partial Pressure O2 60 L 79-93 MMHG Arterial Blood HCO3 19 L 23-27 MMOL/L Arterial Blood Total CO2 20.2 L 21.0-31.0 MMOL/L Arterial Blood Oxygen Saturation 94 94-100 % Arterial Blood Base Excess -3.7 L -2.5-2.5 MMOL/L Nicholas Test YES-POS Blood Gas Ventilator Setting NO Blood Gas Inspired Oxygen RA Test 09/12/16 00:58 09/12/16 03:00 Range/Units Lactic Acid Level 2.04 *H 1.30 0.50-2.00 MMOL/L Lipase 9 8-78 U/L White Blood Count 25.6 H 4.3-11.0 10^3/uL Red Blood Count 4.45 4.35-5.85 10^6/uL Hemoglobin 13.1 L 13.3-17.7 G/DL Hematocrit 40 40-54 % Mean Corpuscular Volume 90 80-99 FL Mean Corpuscular Hemoglobin 29 25-34 PG Mean Corpuscular Hemoglobin Concent 33 32-36 G/DL Red Cell Distribution Width 14.8 H 10.0-14.5 % Platelet Count 199 130-400 10^3/uL Mean Platelet Volume 9.8 7.4-10.4 FL Neutrophils (%) (Auto) 85 H 42-75 % Lymphocytes (%) (Auto) 4 L 12-44 % Monocytes (%) (Auto) 11 0-12 % Eosinophils (%) (Auto) 0 0-10 % Basophils (%) (Auto) 0 0-10 % Neutrophils # (Auto) 21.7 H 1.8-7.8 X 10^3 Lymphocytes # (Auto) 1.1 1.0-4.0 X 10^3 Monocytes # (Auto) 2.8 H 0.0-1.0 X 10^3 Eosinophils # (Auto) 0.0 0.0-0.3 10^3/uL Basophils # (Auto) 0.0 0.0-0.1 10^3/uL Sodium Level 136 135-145 MMOL/L Potassium Level 3.1 L 3.6-5.0 MMOL/L Chloride Level 107 98-107 MMOL/L Carbon Dioxide Level 15 L 21-32 MMOL/L Anion Gap 14 5-14 MMOL/L Blood Urea Nitrogen 8 7-18 MG/DL Creatinine 0.63 0.60-1.30 MG/DL Estimat Glomerular Filtration Rate > 60 BUN/Creatinine Ratio 13 Glucose Level 147 H 70-105 MG/DL Calcium Level 7.8 L 8.5-10.1 MG/DL Phosphorus Level 2.0 L 2.3-4.7 MG/DL Magnesium Level 1.5 L 1.8-2.4 MG/DL Albumin 3.4 3.2-4.5 GM/DL Micro Results Microbiology 09/11/16 Blood Culture - Preliminary, Resulted No growth 09/11/16 Blood Culture - Preliminary, Resulted No growth 09/11/16 C. difficile GDH Antigen & Toxins - Final, Complete 09/11/16 Urine Culture - Preliminary, Resulted NO GROWTH My Orders Orders - JOEL DU MD Cbc With Automated Diff (09/11/16 08:39) Comprehensive Metabolic Panel (09/11/16 08:39) Lactic Acid Analyzer (09/11/16 08:39) Blood Culture (09/11/16 08:39) Sputum Culture (09/11/16 08:39) Ua Culture If Indicated (09/11/16 08:39) Protime With Inr (09/11/16 08:39) Partial Thromboplastin Time (09/11/16 08:39) Chest 1 View, Ap/Pa Only (09/11/16 08:39) O2 (09/11/16 08:39) Saline Lock/Iv-Start (09/11/16 08:39) Saline Lock/Iv-Start (09/11/16 08:39) Vital Signs Adult Sepsis Patie Q1HR (09/11/16 08:39) Remove Rings In Anticipation O (09/11/16 08:39) Ns Iv 1000 Ml (Sodium Chloride 0.9%) (09/11/16 08:39) Manual Differential (09/11/16 08:24) Urine Culture (09/11/16 08:30) Ceftriaxone Injection (Rocephin Injectio (09/11/16 09:15) Hs C Reactive Protein (09/11/16 09:10) Medications Given in ED Vital Signs/I&O Vital Sign - Last 12Hours 09/12/16 09/12/16 09/12/16 09/12/16 05:00 06:00 07:00 07:00 Pulse 110 110 107 105 Resp 29 31 27 B/P (MAP) 138/84 132/83 127/69 Pulse Ox 97 96 97 O2 Delivery Room Air Room Air Room Air 09/12/16 09/12/16 09/12/16 09/12/16 08:00 08:30 10:59 14:07 Temp 97.7 97.8 97.6 Pulse 105 87 84 Resp 29 20 18 B/P (MAP) 123/60 139/77 141/72 Pulse Ox 97 94 96 O2 Delivery Room Air Room Air Room Air 09/12/16 09/12/16 14:16 16:00 Temp 97.8 96.9 Pulse 87 85 Resp 18 18 B/P (MAP) 139/77 134/81 Pulse Ox 96 96 O2 Delivery Room Air Room Air Blood Pressure Mean: 138 Progress Note : Progress Note Sepsis was suspected on assessment. Appropriate labs were drawn. As soon as you a result was returned, Rocephin was initiated. Liter of IV normal saline was initiated because of tachycardia. reports patient is to be a DO NOT RESUSCITATE status. After case discussed with Dr. Wagner, patient was to be admitted to the ICU. He would like blood pressure monitored for now with no medications for treatment of hypertension to be administered yet at this point. Diagnostic Imaging Diagonstic Imaging: Xray Plain Films/CT/US/NM/MRI: chest Comments Chest x-ray viewed by me and report reviewed. See report below: NAME: MIKEL SELF [facility] REC#: [id number] PT STATUS: ADM IN : 1940 PHYSICIAN: JOEL DU MD ADMIT DATE: 09/11/16/ICU Signed Date of Exam: 09/11/16 CHEST 1 VIEW, AP/PA ONLY CLINICAL INDICATION: Patient altered mental status. EXAM: Portable chest x-ray upright view. COMPARISON: Portable chest x-ray dated 09/01/2016. FINDINGS: Again seen slight low lung volumes with suspected mild bibasilar atelectasis. Stable cardiomegaly with no significant pulmonary vascular congestion. Stable curvilinear area overlying the right chest region and correlation for prior surgical change suggested. There is no pleural effusion or pneumothorax. There are degenerative spurs seen throughout the spine. IMPRESSION: 1.: Stable chest x-ray exam with cardiomegaly and no significant pulmonary vascular congestion. 2: Stable slight low lung volumes with suspected mild bibasilar atelectasis. Dictated by: Dictated on workstation # [id number] Dict: 09/11/16 0903 Trans: 09/11/16 1202 Interpreted by: DURGA IBARRA MD Electronically signed by: DURGA IBARRA MD 09/11/16 1202 Departure Communication Time/Spoke to Admitting Phy: 09:[address] Oliver Wagner. He is agreeable to admission to the ICU. Because of patient's altered mental status and poor functional capacity at baseline, closer observation in the ICU is felt appropriate. Impression Impression: Primary Impression: Sepsis Qualified Codes: A41.9 - Sepsis, unspecified organism Additional Impressions: Urinary tract infection Qualified Codes: N39.0 - Urinary tract infection, site not specified; R31.9 - Hematuria, unspecified Altered mental status Qualified Codes: R41.82 - Altered mental status, unspecified Candidiasis, intertrigo Disposition: 09 ADMITTED INPATIENT Condition: Improved Decision to Admit Reason: Admit from ER (General) Decision to Admit/Date: Sep 11, 2016 Time/Decision to Admit Time: 09:10 Departure-Patient Inst. Referrals: OLIVER WAGNER MD (PCP/Family) Primary Care Physician JOEL DU MD Sep 11, 2016 09:33
[2016-09-11 09:37] LABS: BAND NEUTROPHILS 3 %; LYMPHOCYTES % (MANUAL) 1 %; NEUTROPHILS % (MANUAL) 88 %
[2016-09-11] MEDS ORDERED: MAGN400T39 PO (10:39)
[2016-09-11] MEDS ORDERED: POTA-51 PO (10:39)
[2016-09-11] MEDS ORDERED: CEPH500C PO (10:39)
[2016-09-11] MEDS ORDERED: HYDR-3812 PO (10:39)
[2016-09-11] MEDS ORDERED: CATHETER FLUSH 10 ML SYR IV PRN (11:15)
[2016-09-11] MEDS: D5 NS 1000 ML IV SOLUTION 1,000 ML IV SCH ×2 (11:37→18:07)
[2016-09-11] MEDS ORDERED: ACETAMINOPHEN 500 MG TAB (TYLENOL) ONE (11:56)
[2016-09-11] MEDS ORDERED: meTOprolol 5 MG/5 ML (LOPRESSOR) VIAL ONE (11:57)
[2016-09-11] MEDS ORDERED: meTOprolol 5 MG/5 ML (LOPRESSOR) VIAL IV SCH (12:00)
[2016-09-11] MEDS: ACETAMINOPHEN 500 MG TAB (TYLENOL) PO PRN (12:06)
[2016-09-11] MEDS: MICONAZOLE 2% POWDER (DESENEX AF) 90 GM TOP SCH ×2 (13:42→21:37)
[2016-09-11] MEDS ORDERED: meTOprolol 5 MG/5 ML (LOPRESSOR) VIAL IV PRN (14:15)
--- NOTE | 2016-09-11 21:31 | History & Physical ---
History of Present Illness History of Present Illness Reason for visit/HPI 76 yo M re-admitted for sepsis due to CAUTI - patient has struggled with urinary retention for years but recently over the past 6 months at least it has been worsening- flomax did help some initially- Pt has been seen by Dr. Ledezma who has recently performed cystoscopy and ordered catherization x3 with indwelling owens placed subsequently due to recurrent retention. Pt presents from [facility] with sepsis due to UTI. He was febrile with WBC 22K on admission. Pt is a little confused and not as verbally aggressive as he usually is (at times at least). Pt is frustrated that he has urinary retention. Onset 1-2 days- conditioning worsening Pt was on keflex outpt for his UTI so we will reculture and see what his infection is due to. Date of Admission Sep 11, 2016 at 09:27 Date Seen by Provider: Sep 11, 2016 Time Seen by Provider: 21:00 I consulted on this patient on 09/11/16 21:25 Attending Physician Oliver Mckeon MD Admitting Physician Oliver Mckeon MD Consult Allergies and Home Medications Allergies Coded Allergies: No Known Drug Allergies (Unverified , 09/01/16) Home Medications Acetaminophen 500 Mg Tablet, 1,000 MG PO HS PRN for PAIN-MILD, (Reported) TAKES 2 (500 MG) TABLETS Aspirin 81 Mg Tablet.dr, 81 MG PO DAILY, (Reported) Cephalexin 500 Mg Capsule, 500 MG PO BID for 7 Days, (Reported) 7 DAY THERAPY START DATE 09-04-16 Hydrocodone/Acetaminophen 1 Each Tablet, 1 TAB PO Q8H PRN for PAIN-MODERATE, ( Reported) Levetiracetam 500 Mg Tablet, 500 MG PO BID, (Reported) Losartan Potassium 100 Mg Tablet, 100 MG PO DAILY, (Reported) Magnesium Oxide 400 Mg Tablet, 400 MG PO BID, (Reported) Montelukast Sodium 10 Mg Tablet, 10 MG PO DAILY, (Reported) Lebeau 3 Polyunsat Fatty Acids 1,000 Mg Cap, 1,000 MG PO DAILY, (Reported) Phenytoin Sodium Extended 100 Mg Capsule, 200 MG PO BID, (Reported) TAKES 2 (100 MG) CAPSULES Potassium Chloride 20 Meq Tablet.er, 20 MEQ PO DAILY, (Reported) Propranolol HCl 40 Mg Tablet, 40 MG PO BID, (Reported) Risperidone 1 Mg Tablet, 1 MG PO BID, (Reported) Sertraline HCl 100 Mg Tablet, 100 MG PO DAILY, (Reported) Tamsulosin HCl 0.4 Mg Cap.er.24h, 0.4 MG PO 1800, (Reported) Vit A/C/E AC/Znox/Cupric Oxide 1 Each Tablet, 1 TAB PO HS, (Reported) Past Urwiccu-Jmtjvf-Nbqvwj Hx Patient Social History Alcohol Use: Denies Use Recreational Drug Use: No Smoking Status: Former Smoker Former smoker/When Quit: Feb 14, 2011 Type Used: Pipe 2nd Hand Smoke Exposure: No Physical Abuse Screen: No Sexual Abuse: No Recent Foreign Travel: No Contact w/other who traveled: No Recent Hopitalizations: No Recent Infectious Disease Expo: No Immunizations Up To Date Tetanus Booster (TDap): Less than 5yrs Date of Pneumonia Vaccine: June 10, 2012 Seasonal Allergies Seasonal Allergies: No Surgeries HX Surgeries: Yes (BOOP-LUNG SURGERY, CATARACTS, DETACHED RETINA) Surgeries: Coronary Stent, Eye Surgery, Tonsillectomy Respiratory Hx Respiratory Disorders: Yes Cardiovascular Hx Cardiovascular Disorders: Yes (STENT) Cardiac Disorders: Coronary Artery Disease, Hypertension Neurological Hx Neurological Disorders: Yes Neurological Disorders: Dementia, Parkinson's Disease, Seizure Disorder, Stroke Reproductive System Hx Reproductive Disorders: No Sexually Transmitted Disease: No HIV/AIDS: No Genitourinary Hx Genitourinary Disorders: Yes (pt admits to trouble urinating for years) Gastrointestinal Hx Gastrointestinal Disorders: No Gastrointestinal Disorders: Hiatal Hernia Musculoskeletal Hx Musculoskeletal Disorders: No Endocrine Hx Endocrine Disorders: No HEENT HX ENT Disorders: Yes (DETACHED RETINA HX, vision deficits from stroke) HEENT Disorders: Cataract, Eye Injury Loss of Vision: Bilateral Hearing Impairment: Hard of Hearing Cancer Hx Cancer: No Psychosocial Hx Psychiatric Problems: Yes Behavioral Health Disorders: Depression Integumentary HX Skin/Integumentary Disorder: Yes Skin/Integumentary Disorders: Psoriasis Blood Transfusions Hx Blood Disorders: No Adverse Reaction to a Blood Tr: No Family Medical History Significant Family History: CAD Over 55 Years Old Family Hx: Cardiovascular disease 19 FATHER, Onset:Unknown Cataracts 19 MOTHER, Onset:Unknown FH: stomach cancer 19 MOTHER, Onset:Unknown Glaucoma 19 MOTHER, Onset:Unknown Review of Systems Review of Systems ROS Unable to Obtain: dementia- confused- quiet- not wanting to answer questions- did recognize me as Dr. Mckeon. Physical Exam Vital Signs Vital Sign - Last 12Hours 8/3/17 8/3/17 08:25 10:47 Temp 98.2 Pulse 123 Resp 20 B/P (MAP) 178/119 Pulse Ox 93 O2 Delivery Room Air Capillary Refill : Less Than 3 Seconds General Appearance: WD/WN, Mild Distress Eyes: Bilateral Eye Normal Inspection HEENT: PERRL/EOMI Neck: Non Tender, Supple Respiratory: Chest Non Tender, Lungs Clear, Normal Breath Sounds, No Accessory Muscle Use, No Respiratory Distress Cardiovascular: Regular Rate, Rhythm, No Edema, No Murmur Gastrointestinal: Normal Bowel Sounds, Non Tender, Soft Rectal: Deferred Back: Normal Inspection, No CVA Tenderness Extremity: Non Tender, No Calf Tenderness, Other (right arm tremor) Neurologic/Psychiatric: Alert, Depressed Affect Skin: Normal Color, Warm/Dry Lymphatic: No Adenopathy Assessment/Plan Assessment/Plan Assessment/Plan 76 yo M Sepsis due to CAUTI- continue rocephin, monitor cultures- IVF- apap for fever blood pressure actually elevated to normotensive. hypertension- continue losartan- metoprolol 5mg IV prn SBP >160 DBP >110 - improved readings with new cuff/adjustment. urinary retention- continue indwelling catheter;consider consulting Dr. Ledezma Frequent falls and weakness- Patient to work with PT. Left inguinal hernia- stable h/o seizures- continue on his dilantin 100mg, keppra 500mg- COPD- at baseline- on 2L oxygen usually during sleeping- no new issues. diarrhea- Cdiff pending- has had 7 bowel movements since admission- and multiple antibiotics in last few weeks on multiple admissions. Dispo- await urine culture- monitor labs- Problems: Clinical Quality Measures DVT/VTE Risk/Contraindication: Risk Factor Score Per Nursin RFS Level Per Nursing on Admit: 4+=Very High OLIVER MCKEON MD Sep 11, 2016 21:31
[2016-09-12] VITALS (14 sets, daily range): BP systolic 123–156; BP diastolic 60–101
[2016-09-12 00:59] LABS: ABG BASE EXCESS -3.7 MMOL/L (-2.5-2.5); ABG HCO3 19 MMOL/L (23-27); ABG OXYGEN SATURATION 94 % (94-100); ABG PCO2 27 MMHG (35-45); ABG PH 7.47 (7.37-7.43); ABG PO2 60 MMHG (79-93); ABG TCO2 20.2 MMOL/L (21.0-31.0); ALLENS TEST YES-POS
[2016-09-12 01:00] LABS: PATIENT TEMP 98.6
[2016-09-12] MEDS: D5 NS 1000 ML IV SOLUTION 1,000 ML IV SCH ×4 (01:00→20:17)
[2016-09-12] MEDS ORDERED: NS IV 1000 ML 1,000 ML ONE (02:09)
[2016-09-12 03:34] LABS: BASOPHILS % (AUTO) 0 % (0-10); EOSINOPHILS % (AUTO) 0 % (0-10); LYMPHOCYTES # (AUTO) 1.1 X 10^3 (1.0-4.0); LYMPHOCYTES % (AUTO) 4 % (12-44); MEAN CORPUSCULAR HEMOGLOBIN 29 PG (25-34); MEAN CORPUSCULAR HGB CONC 33 G/DL (32-36); MEAN CORPUSCULAR VOLUME 90 FL (80-99); MEAN PLATELET VOLUME 9.8 FL (7.4-10.4); MONOCYTES # (AUTO) 2.8 X 10^3 (0.0-1.0); MONOCYTES % (AUTO) 11 % (0-12); NEUTROPHILS # (AUTO) 21.7 X 10^3 (1.8-7.8); NEUTROPHILS % (AUTO) 85 % (42-75); PLATELET COUNT 199 10^3/uL (130-400); RED BLOOD COUNT 4.45 10^6/uL (4.35-5.85); RED CELL DISTRIBUTION WIDTH 14.8 % (10.0-14.5); WHITE BLOOD COUNT 25.6 10^3/uL (4.3-11.0)
[2016-09-12 03:43] LABS: ALBUMIN 3.4 GM/DL (3.2-4.5); ANION GAP 14 MMOL/L (5-14); BLOOD UREA NITROGEN 8 MG/DL (7-18); BUN/CREATININE RATIO 13; CALCIUM 7.8 MG/DL (8.5-10.1); CARBON DIOXIDE 15 MMOL/L (21-32); CHLORIDE 107 MMOL/L (98-107); CREATININE SERUM 0.63 MG/DL (0.60-1.30); GFR ESTIMATED > 60; GLUCOSE 147 MG/DL (70-105); MAGNESIUM 1.5 MG/DL (1.8-2.4); POTASSIUM 3.1 MMOL/L (3.6-5.0); SODIUM 136 MMOL/L (135-145)
[2016-09-12] MEDS: POTASSIUM CL 10MEQ/50ML IVPB 50 ML IV SCH ×4 (04:40→09:49)
[2016-09-12] MEDS ORDERED: KCL 20 MEQ TAB (K-DUR) PO SCH (06:00)
[2016-09-12] MEDS ORDERED: POTASSIUM CL 10MEQ/50ML IVPB 50 ML IV SCH (06:00)
[2016-09-12] MEDS ORDERED: MAGNESIUM 1 GM/100 ML IVPB 100 ML IV SCH (06:00)
--- NOTE | 2016-09-12 07:55 | Progress Note (SOAP) ---
Subjective Subjective Date Seen by Provider: Sep 12, 2016 Time Seen by Provider: 07:50 76 yo M admitted for CAUTI, as he has been repeatly catherized multiple times over the past couple weeks with also a couple indwelling catheters : indication urinary retention. Pt has continued to have diarrhea, foul smelling- about qhour, awaiting c.diff testing. Starting metronidazole. Review of Systems ROS Unable to Obtain: dementia- confused- quiet- not wanting to answer questions- General: No Chills, No Night Sweats HEENT: No Head Aches, No Visual Changes Pulmonary: No Dyspnea, No Cough Cardiovascular: No: Chest Pain, Palpitations Gastrointestinal: Diarrhea, No: Nausea, Vomiting Genitourinary: No Dysuria, No Frequency Neurological: Weakness did recognize me as Dr. Mckeon. Objective Exam Vital Signs Vital Signs Date Time Temp Pulse Resp B/P (MAP) Pulse Ox O2 Delivery O2 Flow Rate FiO2 09/12/16 06:00 110 31 132/83 96 Room Air 09/12/16 05:00 110 29 138/84 97 Room Air 09/12/16 04:00 97 Room Air 09/12/16 04:00 112 32 156/85 96 Room Air 09/12/16 03:00 108 27 154/85 96 Room Air 09/12/16 02:00 112 27 125/74 Room Air 09/12/16 01:00 114 09/12/16 01:00 114 32 154/90 95 Room Air 09/12/16 00:00 98.8 09/12/16 00:00 97 Room Air 09/12/16 00:00 109 32 152/101 98 Room Air 09/11/16 23:00 110 23 138/79 94 Room Air 09/11/16 22:00 107 28 142/82 95 Room Air 09/11/16 21:00 105 31 146/84 98 Room Air 09/11/16 20:00 97 Room Air 09/11/16 20:00 108 37 162/90 93 Room Air 09/11/16 19:37 98.0 105 26 147/84 96 Room Air 09/11/16 19:00 102 09/11/16 19:00 101 34 177/116 96 Room Air 09/11/16 18:00 115 31 164/91 96 Room Air 09/11/16 17:21 98.9 09/11/16 17:00 113 30 179/101 93 Room Air 09/11/16 16:20 100.2 09/11/16 16:00 115 36 178/107 92 Room Air 09/11/16 15:00 112 31 172/88 95 Room Air 09/11/16 14:00 111 28 171/110 98 Room Air 09/11/16 13:10 98.2 09/11/16 13:10 98.2 09/11/16 13:00 105 28 164/100 96 Room Air 09/11/16 13:00 105 09/11/16 12:00 122 36 171/100 94 Room Air 09/11/16 11:35 100.8 09/11/16 11:04 122 09/11/16 10:50 Room Air 09/11/16 10:50 100.4 122 32 157/91 94 Room Air 09/11/16 10:47 100.8 116 20 96 Room Air 09/11/16 08:25 98.2 123 20 178/119 93 I & O 09/12/16 07:00 Intake Total 1170 ml Output Total 1350 ml Balance -180 ml General Appearance: WD/WN, Mild Distress Eyes: Bilateral Eye Normal Inspection HEENT: PERRL/EOMI Neck: Non Tender, Supple Respiratory: Chest Non Tender, Lungs Clear, Normal Breath Sounds, No Accessory Muscle Use, No Respiratory Distress Cardiovascular: Regular Rate, Rhythm, No Edema, No Murmur, Tachycardia Gastrointestinal: Normal Bowel Sounds, Non Tender, Soft Rectal: Deferred Back: Normal Inspection, No CVA Tenderness Extremity: Non Tender, No Calf Tenderness, Other (right arm tremor) Neurologic/Psychiatric: Alert, Depressed Affect Skin: Normal Color, Warm/Dry Lymphatic: No Adenopathy Results Lab Laboratory Tests 09/11/16 08:24: White Blood Count 22.1H, Red Blood Count 5.03, Hemoglobin 14.8, Hematocrit 45, Mean Corpuscular Volume 90, Mean Corpuscular Hemoglobin 29, Mean Corpuscular Hemoglobin Concent 33, Red Cell Distribution Width 14.6H, Platelet Count 233, Mean Platelet Volume 9.4, Neutrophils (%) (Auto) 86H, Lymphocytes (%) (Auto) 3L , Monocytes (%) (Auto) 10, Eosinophils (%) (Auto) 1, Basophils (%) (Auto) 0, Neutrophils # (Auto) 19.0H, Lymphocytes # (Auto) 0.7L, Monocytes # (Auto) 2.2H, Eosinophils # (Auto) 0.1, Basophils # (Auto) 0.0, Neutrophils % (Manual) 88, Lymphocytes % (Manual) 1, Monocytes % (Manual) 8, Band Neutrophils 3, Blood Morphology Comment NORMAL, Prothrombin Time 14.2, INR Comment 1.1, Activated Partial Thromboplast Time 41H, Sodium Level 133L, Potassium Level 3.9, Chloride Level 101, Carbon Dioxide Level 21, Anion Gap 11, Blood Urea Nitrogen 10, Creatinine 0.65, Estimat Glomerular Filtration Rate > 60, BUN/Creatinine Ratio 15, Glucose Level 139H, Lactic Acid Level 1.13, Calcium Level 9.1, Total Bilirubin 0.8, Aspartate Amino Transf (AST/SGOT) 20, Alanine Aminotransferase ( ALT/SGPT) 42, Alkaline Phosphatase 168H, Total Protein 7.8, Albumin 4.2 09/11/16 08:30: Urine Color YELLOW, Urine Clarity SLIGHTLY CLOUDY, Urine pH 5, Urine Specific Dennison 1.020, Urine Protein 3+H, Urine Glucose (UA) NEGATIVE, Urine Ketones 1+H , Urine Nitrite NEGATIVE, Urine Bilirubin 1+H, Urine Urobilinogen 1, Urine Leukocyte Esterase 3+H, Urine RBC (Auto) 5+H, Urine RBC 10-25H, Urine WBC 10-25H , Urine Crystals NONE, Urine Bacteria FEWH, Urine Casts NONE, Urine Mucus SMALLH , Urine Culture Indicated YES 09/11/16 08:45: C-Reactive Protein High Sensitivity 6.11H 09/12/16 00:50: Blood Gas Puncture Site L RAD, Blood Gas Patient Temperature 98.6, Arterial Blood pH 7.47H, Arterial Blood Partial Pressure CO2 27L, Arterial Blood Partial Pressure O2 60L, Arterial Blood HCO3 19L, Arterial Blood Total CO2 20.2L, Arterial Blood Oxygen Saturation 94, Arterial Blood Base Excess -3.7L, Nicholas Test YES-POS, Blood Gas Ventilator Setting NO, Blood Gas Inspired Oxygen RA 09/12/16 00:58: Lactic Acid Level 2.04*H, Lipase 9 09/12/16 03:00: Lactic Acid Level 1.30, White Blood Count 25.6H, Red Blood Count 4.45, Hemoglobin 13.1L, Hematocrit 40, Mean Corpuscular Volume 90, Mean Corpuscular Hemoglobin 29, Mean Corpuscular Hemoglobin Concent 33, Red Cell Distribution Width 14.8H, Platelet Count 199, Mean Platelet Volume 9.8, Neutrophils (%) (Auto ) 85H, Lymphocytes (%) (Auto) 4L, Monocytes (%) (Auto) 11, Eosinophils (%) (Auto ) 0, Basophils (%) (Auto) 0, Neutrophils # (Auto) 21.7H, Lymphocytes # (Auto) 1.1, Monocytes # (Auto) 2.8H, Eosinophils # (Auto) 0.0, Basophils # (Auto) 0.0, Sodium Level 136, Potassium Level 3.1L, Chloride Level 107, Carbon Dioxide Level 15L, Anion Gap 14, Blood Urea Nitrogen 8, Creatinine 0.63, Estimat Glomerular Filtration Rate > 60, BUN/Creatinine Ratio 13, Glucose Level 147H, Calcium Level 7.8L, Phosphorus Level 2.0L, Magnesium Level 1.5L, Albumin 3.4 Assessment/Plan Assessment/Plan Assessment/Plan 76 yo M Sepsis due to CAUTI- continue rocephin, monitor cultures- IVF- apap for fever blood pressure actually ranging from elevated to normotensive. hypertension- continue losartan- metoprolol 5mg IV prn SBP >160 DBP >110 - improved readings with new cuff/adjustment. Will not get too aggressive while septic. urinary retention- continue indwelling catheter;consider consulting Dr. Ledezma Frequent falls and weakness- Patient to work with PT. Left inguinal hernia- stable h/o seizures- continue on his dilantin 100mg, keppra 500mg- COPD- at baseline- on 2L oxygen usually during sleeping- no new issues. diarrhea- Cdiff pending- has had frequent diarrhea since admission- and multiple antibiotics in last few weeks on multiple admissions. starting metronidazole 500mg tid iv hypokalemia-replacing hypomagnesemia - replacing Dispo- await urine culture, cdiff testing- monitor labs- -transfer to the floor today. Will be here over the weekend. Possibly back to [facility] early next week. Problems: Clinical Quality Measures DVT/VTE Risk/Contraindication: Risk Factor Score Per Nursin RFS Level Per Nursing on Admit: 4+=Very High BRYANT MCKEON MD Sep 12, 2016 07:55
--- NOTE | 2016-09-12 08:09 | Diagnostic Imaging Report ---
Portable upright radiograph of the chest. INDICATION: Severe sepsis. FINDINGS: There is minimal right basilar atelectasis. The heart size is mildly enlarged. No significant effusion or pneumothorax. No evidence of vascular congestion. The mediastinum and dorian appear unremarkable. IMPRESSION: Minimal right basilar atelectasis. Dictated by: Dictated on workstation # [id number]
[2016-09-12] MEDS ORDERED: metroNIDAZOLE 500 MG (FLAGYL) TAB PO SCH (09:00)
--- NOTE | 2016-09-12 09:12 | Physical Therapy Evaluation ---
PT Evaluation-General Medical Diagnosis Admission Date Sep 11, 2016 at 09:27 Medical Diagnosis: UTI/sepsis/AMS Onset Date: Sep 11, 2016 Therapy Diagnosis Therapy Diagnosis: generalized weakness/debility Height/Weight Height (Feet): 6 Height (Inches): 10.00 Weight (Pounds): 220 Weight (Ounces): 9.0 Precautions Precautions/Isolations: Standard Precautions Referral Physician: Mike Reason for Referral: Evaluation/Treatment Medical History Pertinent Medical History: CAD, COPD, CVA, Dementia, HTN, Parkinson's Additional Medical History multiple hospital admits this year Current History AMS per [facility] staff and inability to get OOB (+) Cdiff Reviewed History: Yes Social History Home: Skilled Nursing Prior/Core FIM Prior Level of Function Functional [place] Measure 0=Not Assessed/NA 4=Minimal Assistance 1=Total Assistance 5=Supervision or Setup 2=Maximal Assistance 6=Modified [place] 3=Moderate Assistance 7=Complete [place] Bed Mobility: 4 Transfers (B,C,W/C) (FIM): 4 Gait: 4 PT Evaluation-Current Subjective Patient is in bed and incontinent BM. Patient is confused and requires verbal and tactile instruction for OOB activity. Pain Numeric Pain Scale: 0-No Pain Location: No Pain Reported Objective Patient Orientation: Confused Problem Solving: Poor Attachments: Esteban Catheter ROM/Strength ROM Lower Extremities bilateral LE WNL (rigid) Strenght Lower Extremities bilateral LE 4/5 grossly Integumentary/Posture Integumentary refer to nursing notes Bowel Incontinence: Yes Bladder Incontinence: Esteban Cath Posture WNL Neuromuscular (Tone, Coordination, Reflexes) Parkinson's, rigid (medication not issued this a.m.) Sensory Vision: Blind Legally Hearing: Impaired Sensation Right Lower Extremit: Impaired Sensation Left Lower Extremity: Impaired Transfers Functional [place] Measure 0=Not Assessed/NA 4=Minimal Assistance 1=Total Assistance 5=Supervision or Setup 2=Maximal Assistance 6=Modified [place] 3=Moderate Assistance 7=Complete [place] Transfers (B, C, W/C) (FIM): 2 Scootin Rollin Supine to/from Sit: 2 Sit to/from Stand: 2 bed t/f WC(FIM only if WC use): 2 Due to Parkinson's, patient requires tactile stimuli for all gross motor movement Gait Mode of Locomotion: Both Anticipated Mode of Locomotion: Both Gait (FIM): 1 Distance (FIM): 1=up to 49 ft Distance: 5' x 1 Gait Level of Assist: 2 Gait Persons Needed: 1 Gait Assistive Device: FWW Comments/Gait Description difficulty advancing LE's Balance Sitting Static: Poor Sitting Dynamic: Poor Standing Static: Poor Standing Dynamic: Poor Assessment/Needs 76 y.o. male, with multiple admits, will benefit from skilled PT to address functional mobility to improve current LOF. Patient is incontinent BM due to Cdiff and will be limited with in room activities. Rehab Potential: Guarded Post Rehab Potential-Barriers: multiple hospital admits PT News Writer Goals [facility] Goals PT News Writer Goals Time Frame: Sep 26, 2016 Transfers (B,C,W/C) (FIM): 4 Gait (FIM): 4 Gait distance (FIM): 3=150 ft Gait Level of Assist: 4 Gait Assistive Device: FWW PT Plan Problem List Problem List: Activity Tolerance, Functional Strength, Safety, Balance, Gait, Transfer, Bed Mobility Treatment/Plan Treatment Plan: Continue Plan of Care Treatment Plan: Bed Mobility, Education, Functional Activity Roberto, Functional Strength, Gait, Safety, Therapeutic Exercise, Transfers Treatment Duration: Sep 26, 2016 Frequency: 6 times per week Estimated Hrs Per Day: .25 hour per day Patient and/or Family Agrees t: Yes Discharge Recommendations Therapy D/C Recommendations: Skilled Nursing Placement Time/GCodes Time In: 800 Time Out: 835 Total Billed Treatment Time: 35 [facility] PT Sep 12, 2016 09:12
[2016-09-12] MEDS: metroNIDAZOLE 500MG/100ML IVPB 100 ML IV SCH ×3 (09:13→22:06)
[2016-09-12] MEDS: MAGNESIUM 1 GM/100 ML IVPB 100 ML IV SCH ×2 (09:13→10:06)
[2016-09-12] MEDS: cefTRIAXone 1 GM/NS 50 ML IVPB IV SCH ×2 (09:16)
[2016-09-12] MEDS: LOSARTAN 50 MG (COZAAR) TAB PO SCH (09:20)
[2016-09-12] MEDS: MICONAZOLE 2% POWDER (DESENEX AF) 90 GM TOP SCH ×2 (09:20→20:18)
[2016-09-12] MEDS: SERTRALINE 100 MG (ZOLOFT) TAB PO SCH (09:20)
[2016-09-12] MEDS: MAGNESIUM OXIDE (MAG-OX)400 MG TAB PO SCH ×2 (09:20→20:18)
[2016-09-12] MEDS: PHENYTOIN 100 MG (DILANTIN) CAP PO SCH ×2 (09:20→20:18)
[2016-09-12] MEDS: ASPIRIN E.C. 81 MG (ECOTRIN) TAB PO SCH (09:20)
[2016-09-12] MEDS: LEVETIRACETAM 500 MG (KEPPRA) TAB PO SCH ×2 (09:21→20:18)
[2016-09-12] MEDS: PROPRANOLOL 20 MG (INDERAL) TABLET PO SCH ×2 (09:22→20:18)
[2016-09-12] MEDS: ALFUZOSIN HCL 10 MG TAB (UROXATRAL) PO SCH (16:59)
[2016-09-13 00:46] VITALS: BP 132/69
[2016-09-13] MEDS: D5 NS 1000 ML IV SOLUTION 1,000 ML IV SCH ×3 (04:29→22:34)
[2016-09-13] MEDS: HYDROcodone/APAP 5 MG/325 MG (LORTAB) TAB PO PRN ×2 (05:21→20:41)
[2016-09-13] MEDS: metroNIDAZOLE 500MG/100ML IVPB 100 ML IV SCH ×3 (05:25→22:39)
[2016-09-13 05:38] LABS: BASOPHILS % (AUTO) 0 % (0-10); EOSINOPHILS # (AUTO) 0.1 10^3/uL (0.0-0.3); EOSINOPHILS % (AUTO) 0 % (0-10); LYMPHOCYTES # (AUTO) 0.9 X 10^3 (1.0-4.0); LYMPHOCYTES % (AUTO) 5 % (12-44); MEAN CORPUSCULAR HEMOGLOBIN 30 PG (25-34); MEAN CORPUSCULAR HGB CONC 33 G/DL (32-36); MEAN CORPUSCULAR VOLUME 91 FL (80-99); MEAN PLATELET VOLUME 9.8 FL (7.4-10.4); MONOCYTES # (AUTO) 1.9 X 10^3 (0.0-1.0); MONOCYTES % (AUTO) 10 % (0-12); NEUTROPHILS # (AUTO) 15.4 X 10^3 (1.8-7.8); NEUTROPHILS % (AUTO) 84 % (42-75); PLATELET COUNT 189 10^3/uL (130-400); RED BLOOD COUNT 4.14 10^6/uL (4.35-5.85); RED CELL DISTRIBUTION WIDTH 14.8 % (10.0-14.5); WHITE BLOOD COUNT 18.3 10^3/uL (4.3-11.0)
[2016-09-13 05:52] LABS: ALBUMIN 3.1 GM/DL (3.2-4.5); ANION GAP 12 MMOL/L (5-14); BLOOD UREA NITROGEN 8 MG/DL (7-18); BUN/CREATININE RATIO 14; CALCIUM 7.7 MG/DL (8.5-10.1); CARBON DIOXIDE 17 MMOL/L (21-32); CHLORIDE 108 MMOL/L (98-107); CREATININE SERUM 0.58 MG/DL (0.60-1.30); GFR ESTIMATED > 60; GLUCOSE 136 MG/DL (70-105); PHOSPHORUS 1.6 MG/DL (2.3-4.7); POTASSIUM 3.4 MMOL/L (3.6-5.0); SODIUM 137 MMOL/L (135-145)
[2016-09-13] MEDS: KCL 20 MEQ TAB (K-DUR) PO SCH (06:26)
[2016-09-13 08:00] VITALS: BP 131/73
--- NOTE | 2016-09-13 09:04 | Physical Therapy Progress Note ---
Therapy Progress Note Patient currently has a rectal catheter. No treatment per RN. TANG RODRIGUEZ PT Sep 13, 2016 09:04
[2016-09-13] MEDS: cefTRIAXone 1 GM/NS 50 ML IVPB IV SCH ×2 (09:45)
[2016-09-13] MEDS: LEVETIRACETAM 500 MG (KEPPRA) TAB PO SCH ×2 (09:45→20:41)
[2016-09-13] MEDS: MAGNESIUM OXIDE (MAG-OX)400 MG TAB PO SCH ×2 (09:45→20:40)
[2016-09-13] MEDS: LOSARTAN 50 MG (COZAAR) TAB PO SCH (09:45)
[2016-09-13] MEDS: PROPRANOLOL 20 MG (INDERAL) TABLET PO SCH ×2 (09:45→20:40)
[2016-09-13] MEDS: ASPIRIN E.C. 81 MG (ECOTRIN) TAB PO SCH (09:46)
[2016-09-13] MEDS: SERTRALINE 100 MG (ZOLOFT) TAB PO SCH (09:46)
[2016-09-13] MEDS: PHENYTOIN 100 MG (DILANTIN) CAP PO SCH ×2 (09:46→20:41)
[2016-09-13] MEDS: MICONAZOLE 2% POWDER (DESENEX AF) 90 GM TOP SCH ×2 (09:47→22:34)
[2016-09-13 12:00] VITALS: BP 115/61
[2016-09-13] MEDS: ONDANSETRON 4 MG/2 ML (SDV) Z0FRAN IV PRN (12:06)
--- NOTE | 2016-09-13 12:26 | Progress Note (SOAP) ---
Subjective Date Seen by Provider: Sep 13, 2016 Time Seen by Provider: 12:23 Subjective/Events-last exam Fwup Sepsis with CAUTI, Clostridium difficile colitis, COPD, seizure disorder, hypokalemia. Sitting up in chair. Still having diarrhea. Appetite good. Objective Exam Vital Signs Date Time Temp Pulse Resp B/P (MAP) Pulse Ox O2 Delivery O2 Flow Rate FiO2 09/13/16 08:00 99.3 69 18 131/73 96 Room Air 09/13/16 04:00 20 09/13/16 00:46 98.6 76 20 132/69 96 Room Air 09/12/16 19:06 97.1 92 22 134/75 93 Room Air 09/12/16 16:00 96.9 85 18 134/81 96 Room Air 09/12/16 14:16 97.8 87 18 139/77 96 Room Air 09/12/16 14:07 97.6 84 18 141/72 96 Room Air I & O 09/13/16 07:00 Intake Total 5050 ml Output Total 800 ml Balance 4250 ml Capillary Refill : Less Than 3 Seconds General Appearance: No Apparent Distress Neck: Supple Respiratory: Lungs Clear Cardiovascular: Regular Rate, Rhythm Gastrointestinal: normal bowel sounds, non tender, soft Neurologic/Psychiatric: Alert, Oriented x3 Results Lab Laboratory Tests 09/13/16 05:12: White Blood Count 18.3H, Red Blood Count 4.14L, Hemoglobin 12.4L, Hematocrit 38L , Mean Corpuscular Volume 91, Mean Corpuscular Hemoglobin 30, Mean Corpuscular Hemoglobin Concent 33, Red Cell Distribution Width 14.8H, Platelet Count 189, Mean Platelet Volume 9.8, Neutrophils (%) (Auto) 84H, Lymphocytes (%) (Auto) 5L , Monocytes (%) (Auto) 10, Eosinophils (%) (Auto) 0, Basophils (%) (Auto) 0, Neutrophils # (Auto) 15.4H, Lymphocytes # (Auto) 0.9L, Monocytes # (Auto) 1.9H, Eosinophils # (Auto) 0.1, Basophils # (Auto) 0.0, Sodium Level 137, Potassium Level 3.4L, Chloride Level 108H, Carbon Dioxide Level 17L, Anion Gap 12, Blood Urea Nitrogen 8, Creatinine 0.58L, Estimat Glomerular Filtration Rate > 60, BUN/ Creatinine Ratio 14, Glucose Level 136H, Calcium Level 7.7L, Phosphorus Level 1.6L, Magnesium Level 2.0, Albumin 3.1L Microbiology 09/11/16 Blood Culture - Preliminary, Resulted No growth 09/11/16 C. difficile GDH Antigen & Toxins - Final, Complete 09/11/16 Urine Culture - Preliminary, Resulted NO GROWTH Assessment/Plan Assessment/Plan Assess & Plan/Chief Complaint 1. Sepsis with CAUTI--continue rocephin, WBC count trending down 2. Clostridium Difficile Colitis--flagyl started 3. COPD--stable 4. Seizure Disorder--stable 5. Hypokalemia--replace potassium Clinical Quality Measures DVT/VTE Risk/Contraindication: Risk Factor Score Per Nursin RFS Level Per Nursing on Admit: 4+=Very High GUY VILLASEÑOR DO Sep 13, 2016 12:26
[2016-09-13] MEDS ORDERED: KCL 10 MEQ TAB (MICRO K) PO NR (12:30)
[2016-09-13 15:45] VITALS: BP 127/61
[2016-09-13] MEDS: ALFUZOSIN HCL 10 MG TAB (UROXATRAL) PO SCH (17:40)
[2016-09-13] MEDS: ALPRAZolam 0.25 MG (XANAX) TAB PO PRN ×2 (17:44→23:53)
[2016-09-13 20:05] VITALS: BP 127/73
[2016-09-13 23:52] VITALS: BP 120/62
[2016-09-14] MEDS ORDERED: ALPRAZolam 0.5 MG (XANAX) TAB PO STA (01:45)
[2016-09-14] MEDS: HYDROcodone/APAP 5 MG/325 MG (LORTAB) TAB PO PRN ×3 (03:27→18:48)
[2016-09-14 03:35] VITALS: BP 124/71
[2016-09-14 05:44] LABS: BASOPHILS # (AUTO) 0.1 10^3/uL (0.0-0.1); BASOPHILS % (AUTO) 1 % (0-10); EOSINOPHILS # (AUTO) 0.2 10^3/uL (0.0-0.3); EOSINOPHILS % (AUTO) 2 % (0-10); LYMPHOCYTES # (AUTO) 1.7 X 10^3 (1.0-4.0); LYMPHOCYTES % (AUTO) 14 % (12-44); MEAN CORPUSCULAR HEMOGLOBIN 30 PG (25-34); MEAN CORPUSCULAR HGB CONC 33 G/DL (32-36); MEAN CORPUSCULAR VOLUME 91 FL (80-99); MONOCYTES # (AUTO) 1.2 X 10^3 (0.0-1.0); MONOCYTES % (AUTO) 10 % (0-12); NEUTROPHILS # (AUTO) 8.6 X 10^3 (1.8-7.8); NEUTROPHILS % (AUTO) 73 % (42-75); PLATELET COUNT 189 10^3/uL (130-400); RED BLOOD COUNT 4.09 10^6/uL (4.35-5.85); RED CELL DISTRIBUTION WIDTH 13.9 % (10.0-14.5); WHITE BLOOD COUNT 11.7 10^3/uL (4.3-11.0)
[2016-09-14 06:11] LABS: ANION GAP 11 MMOL/L (5-14); BLOOD UREA NITROGEN 5 MG/DL (7-18); BUN/CREATININE RATIO 10; CALCIUM 7.4 MG/DL (8.5-10.1); CARBON DIOXIDE 15 MMOL/L (21-32); CHLORIDE 111 MMOL/L (98-107); CREATININE SERUM 0.52 MG/DL (0.60-1.30); GFR ESTIMATED > 60; GLUCOSE 116 MG/DL (70-105); MAGNESIUM 2.1 MG/DL (1.8-2.4); POTASSIUM 3.6 MMOL/L (3.6-5.0); SODIUM 137 MMOL/L (135-145)
[2016-09-14] MEDS: KCL 20 MEQ TAB (K-DUR) PO SCH (06:30)
[2016-09-14] MEDS: metroNIDAZOLE 500MG/100ML IVPB 100 ML IV SCH ×3 (06:30→21:17)
[2016-09-14] MEDS: ACETAMINOPHEN 500 MG TAB (TYLENOL) PO PRN ×2 (06:43→15:03)
[2016-09-14 08:00] VITALS: BP 160/84
[2016-09-14] MEDS: ONDANSETRON 4 MG/2 ML (SDV) Z0FRAN IV PRN (08:41)
[2016-09-14] MEDS: ASPIRIN E.C. 81 MG (ECOTRIN) TAB PO SCH (08:42)
[2016-09-14] MEDS: MAGNESIUM OXIDE (MAG-OX)400 MG TAB PO SCH ×2 (08:42→21:13)
[2016-09-14] MEDS: ALPRAZolam 0.25 MG (XANAX) TAB PO PRN ×2 (08:43→15:03)
[2016-09-14] MEDS: SERTRALINE 100 MG (ZOLOFT) TAB PO SCH (08:43)
[2016-09-14] MEDS: PROPRANOLOL 20 MG (INDERAL) TABLET PO SCH ×2 (08:43→21:13)
[2016-09-14] MEDS: PHENYTOIN 100 MG (DILANTIN) CAP PO SCH ×2 (08:43→21:12)
[2016-09-14] MEDS: LEVETIRACETAM 500 MG (KEPPRA) TAB PO SCH ×2 (08:43→21:13)
[2016-09-14] MEDS: LOSARTAN 50 MG (COZAAR) TAB PO SCH (08:43)
[2016-09-14] MEDS: MICONAZOLE 2% POWDER (DESENEX AF) 90 GM TOP SCH ×2 (08:44→21:13)
[2016-09-14] MEDS: cefTRIAXone 1 GM/NS 50 ML IVPB IV SCH ×2 (08:44)
[2016-09-14] MEDS: D5 NS 1000 ML IV SOLUTION 1,000 ML IV SCH ×3 (10:33→22:51)
--- NOTE | 2016-09-14 11:24 | Progress Note (SOAP) ---
Subjective Date Seen by Provider: Sep 14, 2016 Time Seen by Provider: 11:22 Subjective/Events-last exam Fwup Sepsis with CAUTI, Clostridium difficile colitis, COPD, seizure disorder, hypokalemia. Sitting up in chair. Still c/o diarrhea. Appetite good. Objective Exam Vital Signs Date Time Temp Pulse Resp B/P (MAP) Pulse Ox O2 Delivery O2 Flow Rate FiO2 09/14/16 09:16 Room Air 09/14/16 08:00 97.8 76 24 160/84 96 Room Air 09/14/16 03:35 96.5 72 20 124/71 95 Room Air 09/13/16 23:52 96.0 68 20 120/62 95 Room Air 09/13/16 20:35 Room Air 09/13/16 20:05 97.6 74 20 127/73 94 Room Air 09/13/16 15:45 97.0 69 20 127/61 96 Room Air 09/13/16 12:00 96.8 65 18 115/61 96 Room Air I & O 09/14/16 07:00 Intake Total 2290 ml Output Total 1600 ml Balance 690 ml Capillary Refill : Less Than 3 Seconds General Appearance: No Apparent Distress Neck: Supple Respiratory: Lungs Clear Cardiovascular: Regular Rate, Rhythm Gastrointestinal: normal bowel sounds, soft, distended, tenderness (mild RLQ) Extremity: Non Tender, No Calf Tenderness, Pedal Edema (1 plus) Neurologic/Psychiatric: Alert, Oriented x3, Other (tremor) Results Lab Laboratory Tests 09/14/16 05:20: White Blood Count 11.7H, Red Blood Count 4.09L, Hemoglobin 12.3L, Hematocrit 37L , Mean Corpuscular Volume 91, Mean Corpuscular Hemoglobin 30, Mean Corpuscular Hemoglobin Concent 33, Red Cell Distribution Width 13.9, Platelet Count 189, Mean Platelet Volume 11.0H, Neutrophils (%) (Auto) 73, Lymphocytes (%) (Auto) 14 , Monocytes (%) (Auto) 10, Eosinophils (%) (Auto) 2, Basophils (%) (Auto) 1, Neutrophils # (Auto) 8.6H, Lymphocytes # (Auto) 1.7, Monocytes # (Auto) 1.2H, Eosinophils # (Auto) 0.2, Basophils # (Auto) 0.1, Sodium Level 137, Potassium Level 3.6, Chloride Level 111H, Carbon Dioxide Level 15L, Anion Gap 11, Blood Urea Nitrogen 5L, Creatinine 0.52L, Estimat Glomerular Filtration Rate > 60, BUN /Creatinine Ratio 10, Glucose Level 116H, Calcium Level 7.4L, Magnesium Level 2.1 Microbiology 09/11/16 Blood Culture - Preliminary, Resulted No growth 09/11/16 C. difficile GDH Antigen & Toxins - Final, Complete 09/11/16 Urine Culture - Final, Complete NO GROWTH Assessment/Plan Assessment/Plan Assess & Plan/Chief Complaint 1. Sepsis with CAUTI--continue rocephin, WBC count trending down 2. Clostridium Difficile Colitis--continue flagyl 3. COPD--stable 4. Seizure Disorder--stable 5. Hypokalemia--improved after replacement 6. Hypophosphatemia--replace phosphorus Clinical Quality Measures DVT/VTE Risk/Contraindication: Risk Factor Score Per Nursin RFS Level Per Nursing on Admit: 4+=Very High GUY VILLASEÑOR DO Sep 14, 2016 11:24
[2016-09-14] MEDS ORDERED: POTASSIUM PHOSPHATE INJ 30 MM in NS (IVPB) 250 ML IV NR (11:30)
[2016-09-14 12:00] VITALS: BP 131/73
[2016-09-14 16:15] VITALS: BP 161/79
[2016-09-14] MEDS: ALFUZOSIN HCL 10 MG TAB (UROXATRAL) PO SCH (17:19)
[2016-09-14 20:18] VITALS: BP 149/73
[2016-09-15] VITALS: BP 146/74
[2016-09-15] MEDS: ALPRAZolam 0.25 MG (XANAX) TAB PO PRN ×3 (00:33→20:14)
[2016-09-15] MEDS: ACETAMINOPHEN 500 MG TAB (TYLENOL) PO PRN (00:44)
[2016-09-15 05:28] LABS: BASOPHILS % (AUTO) 0 % (0-10); EOSINOPHILS # (AUTO) 0.2 10^3/uL (0.0-0.3); EOSINOPHILS % (AUTO) 1 % (0-10); LYMPHOCYTES # (AUTO) 1.4 X 10^3 (1.0-4.0); LYMPHOCYTES % (AUTO) 8 % (12-44); MEAN CORPUSCULAR HEMOGLOBIN 30 PG (25-34); MEAN CORPUSCULAR HGB CONC 33 G/DL (32-36); MEAN CORPUSCULAR VOLUME 90 FL (80-99); MEAN PLATELET VOLUME 9.9 FL (7.4-10.4); MONOCYTES # (AUTO) 1.9 X 10^3 (0.0-1.0); MONOCYTES % (AUTO) 10 % (0-12); NEUTROPHILS # (AUTO) 15.4 X 10^3 (1.8-7.8); NEUTROPHILS % (AUTO) 81 % (42-75); PLATELET COUNT 229 10^3/uL (130-400); RED BLOOD COUNT 3.91 10^6/uL (4.35-5.85); RED CELL DISTRIBUTION WIDTH 14.3 % (10.0-14.5)
[2016-09-15] MEDS: ONDANSETRON 4 MG/2 ML (SDV) Z0FRAN IV PRN ×2 (05:32→17:11)
[2016-09-15] MEDS: metroNIDAZOLE 500MG/100ML IVPB 100 ML IV SCH (05:32)
[2016-09-15 05:42] LABS: BAND NEUTROPHILS 7 %; BASOPHILS % (MANUAL) 0 %; EOSINOPHILS % (MANUAL) 0 %; LYMPHOCYTES % (MANUAL) 9 %; NEUTROPHILS % (MANUAL) 80 %
[2016-09-15 05:43] LABS: ANISOCYTOSIS SLIGHT
[2016-09-15 06:03] LABS: ANION GAP 9 MMOL/L (5-14); BLOOD UREA NITROGEN 3 MG/DL (7-18); BUN/CREATININE RATIO 5; CALCIUM 7.8 MG/DL (8.5-10.1); CARBON DIOXIDE 21 MMOL/L (21-32); CHLORIDE 107 MMOL/L (98-107); CREATININE SERUM 0.55 MG/DL (0.60-1.30); GFR ESTIMATED > 60; GLUCOSE 125 MG/DL (70-105); MAGNESIUM 1.7 MG/DL (1.8-2.4); PHOSPHORUS 1.6 MG/DL (2.3-4.7); SODIUM 137 MMOL/L (135-145)
[2016-09-15] MEDS: KCL 20 MEQ TAB (K-DUR) PO SCH (06:23)
[2016-09-15 08:00] VITALS: BP 155/71
[2016-09-15] MEDS: MAGNESIUM 1 GM/100 ML IVPB 100 ML IV SCH ×2 (08:35→11:32)
[2016-09-15] MEDS: NS W/KCL 40 MEQ/L 1,000 ML IV SCH ×2 (08:36→22:38)
[2016-09-15] MEDS: PROPRANOLOL 20 MG (INDERAL) TABLET PO SCH ×2 (08:43→20:14)
[2016-09-15] MEDS: ASPIRIN E.C. 81 MG (ECOTRIN) TAB PO SCH (08:43)
[2016-09-15] MEDS: SERTRALINE 100 MG (ZOLOFT) TAB PO SCH (08:43)
[2016-09-15] MEDS: LEVETIRACETAM 500 MG (KEPPRA) TAB PO SCH ×2 (08:43→20:14)
[2016-09-15] MEDS: MAGNESIUM OXIDE (MAG-OX)400 MG TAB PO SCH ×2 (08:43→20:14)
[2016-09-15] MEDS: PHENYTOIN 100 MG (DILANTIN) CAP PO SCH ×2 (08:44→20:14)
--- NOTE | 2016-09-15 08:55 | Progress Note (SOAP) ---
Subjective Subjective Date Seen by Provider: Sep 15, 2016 Time Seen by Provider: 08:48 76 yo M admitted for CAUTI, found to have c.diff colitis as well. Pt is getting more verbal with staff, cussing, yelling- Pt was pleasant this AM with me as he usually is. Seems like he is more difficult when he is speaking to women. Pt would like his rectal tube out and the owens out- but historically when the owens is out he is hateful to nursing staff about not being able to pee and that he is being tortured and demands a owens. Review of Systems ROS Unable to Obtain: dementia- confused- quiet- reports he is hot to me then cold to nurse General: No Chills, No Night Sweats HEENT: No Head Aches, No Visual Changes Pulmonary: No Dyspnea, No Cough Cardiovascular: No: Chest Pain, Palpitations Gastrointestinal: Diarrhea, No: Nausea, Vomiting Genitourinary: No Dysuria, No Frequency Neurological: Weakness did recognize me as Dr. Mckeon. Objective Exam Vital Signs Vital Signs Date Time Temp Pulse Resp B/P (MAP) Pulse Ox O2 Delivery O2 Flow Rate FiO2 09/15/16 08:00 98.8 75 20 155/71 94 Room Air 09/15/16 00:00 97.3 70 20 146/74 95 Room Air 09/14/16 20:18 98.4 79 24 149/73 93 Room Air 09/14/16 16:15 96.9 74 20 161/79 94 Room Air 09/14/16 12:00 97.5 73 20 131/73 95 Room Air 09/14/16 09:16 Room Air I & O 09/15/16 07:00 Intake Total 4140 ml Output Total 1475 ml Balance 2665 ml General Appearance: No Apparent Distress Eyes: Bilateral Eye Normal Inspection HEENT: PERRL/EOMI, Normal ENT Inspection, Pharynx Normal Neck: Supple Respiratory: Lungs Clear Cardiovascular: Regular Rate, Rhythm Gastrointestinal: Normal Bowel Sounds, Non Tender, Soft, Distended (not firm) Rectal: Deferred Back: Normal Inspection Extremity: Non Tender, No Calf Tenderness, Pedal Edema (1 plus) Neurologic/Psychiatric: Alert, Oriented x3, Other (tremor) Skin: Normal Color, Warm/Dry, Other Lymphatic: No Adenopathy Results Lab Laboratory Tests 09/15/16 05:15: White Blood Count 19.0H, Red Blood Count 3.91L, Hemoglobin 11.6L, Hematocrit 35L , Mean Corpuscular Volume 90, Mean Corpuscular Hemoglobin 30, Mean Corpuscular Hemoglobin Concent 33, Red Cell Distribution Width 14.3, Platelet Count 229, Mean Platelet Volume 9.9, Neutrophils (%) (Auto) 81H, Lymphocytes (%) (Auto) 8L , Monocytes (%) (Auto) 10, Eosinophils (%) (Auto) 1, Basophils (%) (Auto) 0, Neutrophils # (Auto) 15.4H, Lymphocytes # (Auto) 1.4, Monocytes # (Auto) 1.9H, Eosinophils # (Auto) 0.2, Basophils # (Auto) 0.0, Neutrophils % (Manual) 80, Lymphocytes % (Manual) 9, Monocytes % (Manual) 3, Eosinophils % (Manual) 0, Basophils % (Manual) 0, Band Neutrophils 7, Toxic Granulation 1+, Anisocytosis SLIGHT, Sodium Level 137, Potassium Level 3.0L, Chloride Level 107, Carbon Dioxide Level 21, Anion Gap 9, Blood Urea Nitrogen 3L, Creatinine 0.55L, Estimat Glomerular Filtration Rate > 60, BUN/Creatinine Ratio 5, Glucose Level 125H, Calcium Level 7.8L, Phosphorus Level 1.6L, Magnesium Level 1.7L Microbiology 09/11/16 Blood Culture - Preliminary, Resulted No growth 09/11/16 C. difficile GDH Antigen & Toxins - Final, Complete 09/13/16 MRSA Screen - Final, Complete MRSA not isolated 09/11/16 Urine Culture - Final, Complete NO GROWTH Assessment/Plan Assessment/Plan Assessment/Plan 76 yo M Sepsis due to c.diff colitis, cauti- continue rocephin, metronidazole- IVF- apap for fever urine culture negative. hypertension- continue losartan- metoprolol 5mg IV prn SBP >160 DBP >110 - urinary retention- continue indwelling catheter; Dr. Ledezma says he may try a minimal invasive procedure in the future- to see if he can help with the retention but we both feel there is a cognitive component that surgery/medicine will not help. Frequent falls and weakness- Patient to work with PT. Left inguinal hernia- repaired- stable h/o seizures- continue on his dilantin 100mg, keppra 500mg- COPD- at baseline- on 2L oxygen usually during sleeping- no new issues. hypokalemia- due to losses- replacing NS +40KCl hypomagnesemia - replacing, iv, po Dispo- changing metronidazole to po today. Possibly back to [facility] in a day or two. will see how he does today and tomorrow. WBC increased today and electrolytes are off. Problems: Clinical Quality Measures DVT/VTE Risk/Contraindication: Risk Factor Score Per Nursin RFS Level Per Nursing on Admit: 4+=Very High BRYANT MCKEON MD Sep 15, 2016 08:55
[2016-09-15] MEDS: LOSARTAN 50 MG (COZAAR) TAB PO SCH (08:58)
[2016-09-15] MEDS: MICONAZOLE 2% POWDER (DESENEX AF) 90 GM TOP SCH ×2 (08:59→20:15)
[2016-09-15] MEDS: cefTRIAXone 1 GM/NS 50 ML IVPB IV SCH ×2 (10:39)
--- NOTE | 2016-09-15 10:41 | Physical Therapy Daily Note ---
PT Daily Note-Current Subjective Patient agrees to up in recliner. Patient is yelling in bed repeating "help". Nursing states this has been happening all night. Pain Numeric Pain Scale: 0-No Pain Location: No Pain Reported Mental Status Patient Orientation: Confused Attachments: Esteban Catheter, IV rectal tube Transfers Functional [place] Measure 0=Not Assessed/NA 4=Minimal Assistance 1=Total Assistance 5=Supervision or Setup 2=Maximal Assistance 6=Modified [place] 3=Moderate Assistance 7=Complete IndependenceIRFPAI Quality Coding Scale 6 Independent with activity with or without an assistive device 5 Patient requires set up or clean up by helper. Patient completes activity by themselves 4 Supervision or touching assist (CGA). [place] provide cues , steadying assist 3 The helper provides less than half the effort to complete the activity 2 The helper provides more than half the effort to complete the activity 1 Dependent. The helper does all the effort to complete an activity 7 Patient refused to complete or attempt activity 9 The patient did not perform the activity before the current illness or injury 88 Not attempted due to Medical conditions or safety concerns Transfers (B, C, W/C) (FIM): 3 Scootin Rollin Supine to/from Sit: 3 Sit to/from Stand: 3 Bed to/from Chair: 3 Patient required mod assist with all mobility on this date. Assessment Patient is up in recliner with breakfast in situ. Chair alarm activated. ORGANIC SEARCH LEAD present to assist with feeding. Patient is limited with mobility due to multiple attachments and precautions. PT to increase activity as patient's medical status improves. PT Business Solutions Director Goals Business Solutions Director Goals PT Business Solutions Director Goals Time Frame: Sep 26, 2016 Transfers (B,C,W/C) (FIM): 4 Gait (FIM): 4 Gait distance (FIM): 3=150 ft Gait Level of Assist: 4 Gait Assistive Device: FWW PT Plan Treatment/Plan Treatment Plan: Continue Plan of Care Treatment Plan: Bed Mobility, Education, Functional Activity Roberto, Functional Strength, Gait, Safety, Therapeutic Exercise, Transfers Treatment Duration: Sep 26, 2016 Frequency: 6 times per week Estimated Hrs Per Day: .25 hour per day Patient and/or Family Agrees t: Yes Time/GCodes Time In: 1016 Time Out: 1026 Total Billed Treatment Time: 10 Total Billed Treatment 1 visit FA 10 min TANG RODRIGUEZ PT Sep 15, 2016 10:41
[2016-09-15] MEDS: metroNIDAZOLE 500 MG (FLAGYL) TAB PO SCH ×2 (12:42→20:14)
[2016-09-15] MEDS: HYDROcodone/APAP 5 MG/325 MG (LORTAB) TAB PO PRN ×2 (12:43→23:30)
[2016-09-15 16:32] VITALS: BP 137/85
[2016-09-15] MEDS: ALFUZOSIN HCL 10 MG TAB (UROXATRAL) PO SCH (17:12)
[2016-09-15 23:20] VITALS: BP 160/80
[2016-09-16] MEDS: ONDANSETRON 4 MG/2 ML (SDV) Z0FRAN IV PRN (03:46)
[2016-09-16] MEDS: ACETAMINOPHEN 500 MG TAB (TYLENOL) PO PRN (04:36)
[2016-09-16] MEDS: KCL 20 MEQ TAB (K-DUR) PO SCH (06:08)
[2016-09-16 07:25] LABS: BASOPHILS % (AUTO) 0 % (0-10); EOSINOPHILS # (AUTO) 0.2 10^3/uL (0.0-0.3); EOSINOPHILS % (AUTO) 1 % (0-10); LYMPHOCYTES # (AUTO) 1.2 X 10^3 (1.0-4.0); LYMPHOCYTES % (AUTO) 8 % (12-44); MEAN CORPUSCULAR HEMOGLOBIN 30 PG (25-34); MEAN CORPUSCULAR HGB CONC 33 G/DL (32-36); MEAN CORPUSCULAR VOLUME 90 FL (80-99); MONOCYTES # (AUTO) 1.3 X 10^3 (0.0-1.0); MONOCYTES % (AUTO) 8 % (0-12); NEUTROPHILS % (AUTO) 83 % (42-75); PLATELET COUNT 271 10^3/uL (130-400); RED BLOOD COUNT 3.91 10^6/uL (4.35-5.85); RED CELL DISTRIBUTION WIDTH 14.1 % (10.0-14.5); WHITE BLOOD COUNT 15.8 10^3/uL (4.3-11.0)
[2016-09-16 07:41] LABS: ANION GAP 10 MMOL/L (5-14); BLOOD UREA NITROGEN 3 MG/DL (7-18); BUN/CREATININE RATIO 6; CALCIUM 7.6 MG/DL (8.5-10.1); CARBON DIOXIDE 20 MMOL/L (21-32); CHLORIDE 104 MMOL/L (98-107); CREATININE SERUM 0.53 MG/DL (0.60-1.30); GFR ESTIMATED > 60; GLUCOSE 147 MG/DL (70-105); MAGNESIUM 1.7 MG/DL (1.8-2.4); POTASSIUM 3.1 MMOL/L (3.6-5.0); SODIUM 134 MMOL/L (135-145)
[2016-09-16 08:00] VITALS: BP 177/84
[2016-09-16] MEDS: PHENYTOIN 100 MG (DILANTIN) CAP PO SCH ×2 (08:38→20:42)
[2016-09-16] MEDS: MAGNESIUM OXIDE (MAG-OX)400 MG TAB PO SCH ×2 (08:38→20:42)
[2016-09-16] MEDS: SERTRALINE 100 MG (ZOLOFT) TAB PO SCH (08:38)
[2016-09-16] MEDS: metroNIDAZOLE 500 MG (FLAGYL) TAB PO SCH ×3 (08:38→20:41)
[2016-09-16] MEDS: cefTRIAXone 1 GM/NS 50 ML IVPB IV SCH ×2 (08:38)
[2016-09-16] MEDS: LEVETIRACETAM 500 MG (KEPPRA) TAB PO SCH ×2 (08:38→20:41)
[2016-09-16] MEDS: ASPIRIN E.C. 81 MG (ECOTRIN) TAB PO SCH (08:38)
[2016-09-16] MEDS: PROPRANOLOL 20 MG (INDERAL) TABLET PO SCH ×2 (08:38→20:41)
[2016-09-16] MEDS: LOSARTAN 50 MG (COZAAR) TAB PO SCH (08:39)
[2016-09-16] MEDS: MICONAZOLE 2% POWDER (DESENEX AF) 90 GM TOP SCH ×2 (08:51→20:42)
[2016-09-16] MEDS: HYDROcodone/APAP 5 MG/325 MG (LORTAB) TAB PO PRN ×2 (09:00→17:48)
[2016-09-16] MEDS: ALPRAZolam 0.25 MG (XANAX) TAB PO PRN ×2 (10:13→20:41)
[2016-09-16] MEDS: KCL 10 MEQ TAB (MICRO K) PO SCH ×2 (10:13→17:44)
[2016-09-16] MEDS: MAGNESIUM 1 GM/100 ML IVPB 100 ML IV SCH ×2 (10:16→11:35)
--- NOTE | 2016-09-16 10:51 | Physical Therapy Daily Note ---
PT Daily Note-Current Subjective Patient is yelling, "help" and continues to repeat this. Pain Numeric Pain Scale: 10-Worst Possible Pain Location Body Site: Generalized Comment: FLACC Mental Status Patient Orientation: Confused Attachments: Esteban Catheter rectal tube Transfers Functional [place] Measure 0=Not Assessed/NA 4=Minimal Assistance 1=Total Assistance 5=Supervision or Setup 2=Maximal Assistance 6=Modified [place] 3=Moderate Assistance 7=Complete IndependenceIRFPAI Quality Coding Scale 6 Independent with activity with or without an assistive device 5 Patient requires set up or clean up by helper. Patient completes activity by themselves 4 Supervision or touching assist (CGA). [place] provide cues , steadying assist 3 The helper provides less than half the effort to complete the activity 2 The helper provides more than half the effort to complete the activity 1 Dependent. The helper does all the effort to complete an activity 7 Patient refused to complete or attempt activity 9 The patient did not perform the activity before the current illness or injury 88 Not attempted due to Medical conditions or safety concerns Transfers (B, C, W/C) (FIM): 3 Scootin Rollin Supine to/from Sit: 3 Sit to/from Stand: 3 Bed to/from Chair: 3 Patient is mod assist with all mobility due to Parkinson's and inability to follow direction with exercises. Sit to stand x 3 sets to position in chair with pillows to not collapse rectal tube. Gait Training Gait (FIM): 1 Distance (FIM): 1=up to 49 ft Distance: 5' x 2 Gait Level of Assist: 3 Gait Persons Needed: 1 Gait Assistive Device: None Parkinson's Assessment Patient is up in recliner with needs met. patient continues to yell, "help". RN in room to assist. PT Impregnating Tank Operator Goals Detention Goals PT Detention Goals Time Frame: Sep 26, 2016 Transfers (B,C,W/C) (FIM): 4 Gait (FIM): 4 Gait distance (FIM): 3=150 ft Gait Level of Assist: 4 Gait Assistive Device: FWW PT Plan Treatment/Plan Treatment Plan: Continue Plan of Care Treatment Plan: Bed Mobility, Education, Functional Activity Roberto, Functional Strength, Gait, Safety, Therapeutic Exercise, Transfers Treatment Duration: Sep 26, 2016 Frequency: 6 times per week Estimated Hrs Per Day: .25 hour per day Patient and/or Family Agrees t: Yes Time/GCodes Time In: 910 Time Out: 935 Total Billed Treatment Time: 25 Total Billed Treatment 1 visit FA x 2 25 min TANG RODRIGUEZ PT Sep 16, 2016 10:51
[2016-09-16] MEDS ORDERED: QUEtiapine 25 MG (SEROquel) TAB IMMEDIATE RELEASE PO NR (12:15)
[2016-09-16] MEDS: NS W/KCL 40 MEQ/L 1,000 ML IV SCH ×2 (12:23→22:00)
--- NOTE | 2016-09-16 12:50 | Progress Note (SOAP) ---
Subjective Subjective Date Seen by Provider: Sep 16, 2016 Time Seen by Provider: 12:43 76 yo M admitted for CAUTI, found to have c.diff colitis as well. Pt still verbal with staff- yelling out for help. He tells nursing staff he is in pain. Pt denies any pain when I saw him- says he is about the same as yesterday- even denies any diarrhea. Pt is difficult due to his underlying dementia, depression. Review of Systems ROS Unable to Obtain: dementia- yelling out when he is alone in his room General: No Chills, No Night Sweats HEENT: No Head Aches, No Visual Changes Pulmonary: No Dyspnea, No Cough Cardiovascular: No: Chest Pain, Palpitations Gastrointestinal: Diarrhea (denied today.), No: Nausea, Vomiting Genitourinary: No Dysuria, No Frequency Neurological: Weakness did recognize me as Dr. Mckeon. Objective Exam Vital Signs Vital Signs Date Time Temp Pulse Resp B/P (MAP) Pulse Ox O2 Delivery O2 Flow Rate FiO2 09/16/16 08:00 98.7 75 20 177/84 91 Room Air 09/16/16 08:00 98.7 09/15/16 23:20 98.5 67 20 160/80 94 Room Air 09/15/16 16:32 97.1 71 20 137/85 93 Room Air I & O 09/16/16 07:00 Intake Total 3800 ml Output Total 2300 ml Balance 1500 ml General Appearance: No Apparent Distress Eyes: Bilateral Eye Normal Inspection HEENT: PERRL/EOMI, Normal ENT Inspection, Pharynx Normal Neck: Supple Respiratory: Lungs Clear Cardiovascular: Regular Rate, Rhythm Gastrointestinal: Normal Bowel Sounds, Non Tender, Soft, Distended (not firm) Rectal: Deferred Back: Normal Inspection Extremity: Non Tender, No Calf Tenderness, Pedal Edema (1 plus) Neurologic/Psychiatric: Alert, Oriented x3, Other (tremor) Skin: Normal Color, Warm/Dry, Other Lymphatic: No Adenopathy Results Lab Laboratory Tests 09/16/16 07:12: White Blood Count 15.8H, Red Blood Count 3.91L, Hemoglobin 11.6L, Hematocrit 35L , Mean Corpuscular Volume 90, Mean Corpuscular Hemoglobin 30, Mean Corpuscular Hemoglobin Concent 33, Red Cell Distribution Width 14.1, Platelet Count 271, Mean Platelet Volume 10.0, Neutrophils (%) (Auto) 83H, Lymphocytes (%) (Auto) 8L , Monocytes (%) (Auto) 8, Eosinophils (%) (Auto) 1, Basophils (%) (Auto) 0, Neutrophils # (Auto) 13.0H, Lymphocytes # (Auto) 1.2, Monocytes # (Auto) 1.3H, Eosinophils # (Auto) 0.2, Basophils # (Auto) 0.0, Sodium Level 134L, Potassium Level 3.1L, Chloride Level 104, Carbon Dioxide Level 20L, Anion Gap 10, Blood Urea Nitrogen 3L, Creatinine 0.53L, Estimat Glomerular Filtration Rate > 60, BUN /Creatinine Ratio 6, Glucose Level 147H, Calcium Level 7.6L, Magnesium Level 1.7L Microbiology 09/11/16 Blood Culture - Preliminary, Resulted No growth 09/11/16 C. difficile GDH Antigen & Toxins - Final, Complete 09/13/16 MRSA Screen - Final, Complete MRSA not isolated 09/11/16 Urine Culture - Final, Complete NO GROWTH Assessment/Plan Assessment/Plan Assessment/Plan 76 yo M Sepsis due to c.diff colitis, cauti- continue rocephin, metronidazole- IVF- apap for fever urine culture negative. hypertension- continue losartan- metoprolol 5mg IV prn SBP >160 DBP >110 - urinary retention- continue indwelling catheter; Dr. Ledezma says he may try a minimal invasive procedure in the future- to see if he can help with the retention but we both feel there is a cognitive component that surgery/medicine will not help. Frequent falls and weakness- Patient to work with PT. Left inguinal hernia- repaired- stable h/o seizures- continue on his dilantin 100mg, keppra 500mg- COPD- at baseline- on 2L oxygen usually during sleeping- no new issues. hypokalemia- due to losses- replacing NS +40KCl hypomagnesemia - replacing, iv, po Dementia- progressing. Depression with behavior/verbal disturbance- starting seroquel 50mg qhs; will continue to reevaluate medication management. Also the fact that he can not see plays a role in his mood. Dispo- WBC trending down, afebrile- Plan to d/c back to [facility] 09/17/16. He will complete course of metronidazole for his C.diff. Problems: Clinical Quality Measures DVT/VTE Risk/Contraindication: Risk Factor Score Per Nursin RFS Level Per Nursing on Admit: 4+=Very High BRYANT MCKEON MD Sep 16, 2016 12:49
[2016-09-16 16:00] VITALS: BP 143/79
[2016-09-16] MEDS: ALFUZOSIN HCL 10 MG TAB (UROXATRAL) PO SCH (17:48)
[2016-09-16] MEDS ORDERED: QUEtiapine 25 MG (SEROquel) TAB IMMEDIATE RELEASE PO SCH (21:00)
[2016-09-17] VITALS: BP 165/95
[2016-09-17] MEDS: NS W/KCL 40 MEQ/L 1,000 ML IV SCH (02:47)
[2016-09-17] MEDS: ALPRAZolam 0.25 MG (XANAX) TAB PO PRN (02:52)
[2016-09-17] MEDS: ONDANSETRON 4 MG/2 ML (SDV) Z0FRAN IV PRN ×2 (04:12→07:39)
[2016-09-17] MEDS: HYDROcodone/APAP 5 MG/325 MG (LORTAB) TAB PO PRN (04:12)
[2016-09-17 05:45] LABS: BASOPHILS % (AUTO) 0 % (0-10); EOSINOPHILS # (AUTO) 0.2 10^3/uL (0.0-0.3); EOSINOPHILS % (AUTO) 1 % (0-10); LYMPHOCYTES # (AUTO) 1.5 X 10^3 (1.0-4.0); LYMPHOCYTES % (AUTO) 10 % (12-44); MEAN CORPUSCULAR HEMOGLOBIN 30 PG (25-34); MEAN CORPUSCULAR HGB CONC 33 G/DL (32-36); MEAN CORPUSCULAR VOLUME 91 FL (80-99); MEAN PLATELET VOLUME 10.4 FL (7.4-10.4); MONOCYTES % (AUTO) 12 % (0-12); NEUTROPHILS # (AUTO) 12.2 X 10^3 (1.8-7.8); NEUTROPHILS % (AUTO) 77 % (42-75); PLATELET COUNT 315 10^3/uL (130-400); RED CELL DISTRIBUTION WIDTH 14.3 % (10.0-14.5); WHITE BLOOD COUNT 15.8 10^3/uL (4.3-11.0)
[2016-09-17 06:06] LABS: ANION GAP 8 MMOL/L (5-14); BLOOD UREA NITROGEN 3 MG/DL (7-18); BUN/CREATININE RATIO 6; CALCIUM 7.6 MG/DL (8.5-10.1); CARBON DIOXIDE 23 MMOL/L (21-32); CHLORIDE 103 MMOL/L (98-107); GFR ESTIMATED > 60; GLUCOSE 119 MG/DL (70-105); MAGNESIUM 1.8 MG/DL (1.8-2.4); POTASSIUM 3.7 MMOL/L (3.6-5.0); SODIUM 134 MMOL/L (135-145)
[2016-09-17] MEDS: KCL 20 MEQ TAB (K-DUR) PO SCH (06:11)
[2016-09-17] MEDS: KCL 10 MEQ TAB (MICRO K) PO SCH (06:12)
[2016-09-17 07:44] VITALS: BP 172/86
[2016-09-17] MEDS ORDERED: CHOLESTYRAMINE 4 GM (QUESTRAN LITE, PREVALITE) PKT PO PRN (09:00)
[2016-09-17] MEDS ORDERED: HYDR-3812 PO (09:09)
[2016-09-17] MEDS ORDERED: ALPR0.254 PO (09:09)
[2016-09-17] MEDS ORDERED: QUET25TA73 PO (09:09)
[2016-09-17] MEDS ORDERED: METR500T21 PO (09:09)
[2016-09-17] MEDS ORDERED: MICO90PO TOP (09:09)
[2016-09-17] MEDS ORDERED: CHOL4PAC3 PO (09:09)
--- NOTE | 2016-09-17 09:14 | Discharge Inst-Skilled Nursing ---
Discharge Inst-Skilled NF Patient Instructions Patient Problems: c.diff colitis hypertension- urinary retention- Frequent falls and weakness- Patient to work with PT. h/o seizures- COPD- at baseline- on 2L oxygen usually during sleeping- hypomagnesemia - Dementia- progressing. Depression with behavior/verbal disturbance Consult/Follow Up/Orders Follow Up Appt.: Follow up in 1 week at [facility] Call Dr. Ledezma's office for recommendation on follow up. Skilled NF Admit to: [facility] Certification (SNF) I certify that SNF services are required to be given on an inpatient basis because of the above named patient's need for halfway care on a continuing basis for the conditions(s) for which he/she was receiving inpatient hospital services prior to his/her transfer to the SNF. Alf Facility Order: Nursing Services, [employer] Product Manager-Evaluate & Treat, Physical Therapy-Evaluate & Treat Discharge Diet: Regular Diet Daily Activity as Tolerated: Yes New & Resume Previous Orders New & Resume Previous Orders resume previous orders- noting risperdal d/c'd, keflex d/c'd Complete metronidazole course for clostridium difficile quetiapine added for his depression with outbursts. Oliver Mckeon Sep 17, 2016 09:10 OLIVER MCKEON MD Sep 17, 2016 09:14
--- NOTE | 2016-09-17 09:18 | Discharge Summary ---
Diagnosis/Chief Complaint Date of Admission Sep 11, 2016 at 09:27 Date of Discharge Sep 17, 2016 Admission Diagnosis Admission Diagnosis Sepsis due to c.diff colitis, cauti- hypertension- urinary retention- Frequent falls and weakness- Left inguinal hernia- repaired- stable h/o seizures- COPD- Dementia- progressing. Depression with behavior/verbal disturbance Discharge Diagnosis Sepsis due to c.diff colitis, cauti- hypertension- urinary retention- Frequent falls and weakness- Left inguinal hernia- repaired- stable h/o seizures- COPD- hypokalemia- hypomagnesemia - Dementia- progressing. Depression with behavior/verbal disturbance Reason Hospital Visit 76 yo M re-admitted for sepsis due to CAUTI - patient has struggled with urinary retention for years but recently over the past 6 months at least it has been worsening- flomax did help some initially- Pt has been seen by Dr. Ledezma who has recently performed cystoscopy and ordered catherization x3 with indwelling owens placed subsequently due to recurrent retention. Pt presents from [facility] with sepsis due to UTI. He was febrile with WBC 22K on admission. Pt is a little confused and not as verbally aggressive as he usually is (at times at least). Pt is frustrated that he has urinary retention. Onset 1-2 days- conditioning worsening Pt was on keflex outpt for his UTI so we will reculture and see what his infection is due to. Discharge Summary Hospital Course Hospital Course Sepsis due to c.diff colitis, cauti- continue rocephin, metronidazole- IVF- apap for fever urine culture negative. hypertension- continue losartan- metoprolol 5mg IV prn SBP >160 DBP >110 - urinary retention- continue indwelling catheter; Dr. Ledezma says he may try a minimal invasive procedure in the future- to see if he can help with the retention but we both feel there is a cognitive component that surgery/medicine will not help. Frequent falls and weakness- Patient to work with PT. Left inguinal hernia- repaired- stable h/o seizures- continue on his dilantin 100mg, keppra 500mg- COPD- at baseline- on 2L oxygen usually during sleeping- no new issues. hypokalemia- due to losses- replacing NS +40KCl hypomagnesemia - replacing, iv, po Dementia- progressing. Depression with behavior/verbal disturbance Labs Laboratory Tests 09/15/16 05:15: White Blood Count 19.0H, Red Blood Count 3.91L, Hemoglobin 11.6L, Hematocrit 35L , Neutrophils (%) (Auto) 81H, Lymphocytes (%) (Auto) 8L, Neutrophils # (Auto) 15.4H, Monocytes # (Auto) 1.9H, Potassium Level 3.0L, Blood Urea Nitrogen 3L, Creatinine 0.55L, Glucose Level 125H, Calcium Level 7.8L, Phosphorus Level 1.6L , Magnesium Level 1.7L 09/16/16 07:12: White Blood Count 15.8H, Red Blood Count 3.91L, Hemoglobin 11.6L, Hematocrit 35L , Neutrophils (%) (Auto) 83H, Lymphocytes (%) (Auto) 8L, Neutrophils # (Auto) 13.0H, Monocytes # (Auto) 1.3H, Potassium Level 3.1L, Blood Urea Nitrogen 3L, Creatinine 0.53L, Glucose Level 147H, Calcium Level 7.6L, Magnesium Level 1.7L, Sodium Level 134L, Carbon Dioxide Level 20L 09/17/16 04:59: White Blood Count 15.8H, Red Blood Count 4.00L, Hemoglobin 11.9L, Hematocrit 36L , Neutrophils (%) (Auto) 77H, Lymphocytes (%) (Auto) 10L, Neutrophils # (Auto) 12.2H, Monocytes # (Auto) 2.0H, Blood Urea Nitrogen 3L, Creatinine 0.50L, Glucose Level 119H, Calcium Level 7.6L, Sodium Level 134L Procedures None. Discharge Physical Examination Allergies: Coded Allergies: No Known Drug Allergies (Unverified , 09/01/16) Vitals & I&Os Vital Signs Date Time Temp Pulse Resp B/P (MAP) Pulse Ox O2 Delivery O2 Flow Rate FiO2 09/17/16 07:44 98.3 76 24 172/86 94 Room Air General Appearance: Alert, Oriented X3, Cooperative HEENT: Atraumatic Respiratory: Clear to Auscultation Cardiovascular: Regular Rate Abdominal: Normal Bowel Sounds, Soft, Other (distended- stable) Extremities: No Clubbing, No Cyanosis, Other (trace pitting edema LE) Skin: No Rashes Neuro: Sensation Intact Psych/Mental Status: Other (mood improved) Discharge Home Medications Reviewed and agree with Discharge Medication list on patient's Discharge Instruction sheet Condition at Discharge stable Instructions to Patient/Family Please see electronic discharge instructions given to patient. Clinical Quality Measures DVT/VTE Risk/Contraindication: Risk Factor Score Per Nursin RFS Level Per Nursing on Admit: 4+=Very High BRYANT WAGNER MD Sep 17, 2016 09:18
[2016-09-17] MEDS: PROPRANOLOL 20 MG (INDERAL) TABLET PO SCH (09:30)
[2016-09-17] MEDS: PHENYTOIN 100 MG (DILANTIN) CAP PO SCH (09:30)
[2016-09-17] MEDS: LOSARTAN 50 MG (COZAAR) TAB PO SCH (09:30)
[2016-09-17] MEDS: cefTRIAXone 1 GM/NS 50 ML IVPB IV SCH ×2 (09:30)
[2016-09-17] MEDS: MAGNESIUM OXIDE (MAG-OX)400 MG TAB PO SCH (09:30)
[2016-09-17] MEDS: SERTRALINE 100 MG (ZOLOFT) TAB PO SCH (09:30)
[2016-09-17] MEDS: metroNIDAZOLE 500 MG (FLAGYL) TAB PO SCH ×2 (09:30→12:38)
[2016-09-17] MEDS: LEVETIRACETAM 500 MG (KEPPRA) TAB PO SCH (09:30)
[2016-09-17] MEDS: ASPIRIN E.C. 81 MG (ECOTRIN) TAB PO SCH (09:30)
[2016-09-17] MEDS: MICONAZOLE 2% POWDER (DESENEX AF) 90 GM TOP SCH (10:49)
[2016-09-17 13:27] VITALS: BP 172/86
[2016-09-17] MEDS ORDERED: QUEtiapine 25 MG (SEROquel) TAB IMMEDIATE RELEASE PO SCH (21:00)
[2016-09-18] MEDS ORDERED: QUET25TA PO (08:12)
[2016-09-18] MEDS ORDERED: MAGN500T PO (08:12)
[2016-09-18] MEDS ORDERED: LACT1CAP39 PO (08:12)
== END 2016-09-17 13:02 | DRG 698 ==
LOC: EDUNIT# 08:25 → ER 08:27 → ICU 09:27 → 4TH 09-12 10:15
PROVIDERS: ADMIT Family Medicine; ATTEND Family Medicine
DX: T83.511A Infection and inflammatory reaction due to indwelling urethral catheter, initial encounter (principal); A41.9 Sepsis, unspecified organism; N39.0 Urinary tract infection, site not specified; R31.9 Hematuria, unspecified; R33.9 Retention of urine, unspecified; A04.7 Enterocolitis due to Clostridium difficile; G31.83 Neurocognitive disorder with Lewy bodies; I10 Essential (primary) hypertension; Z66 Do not resuscitate; J44.9 Chronic obstructive pulmonary disease, unspecified; I25.10 Atherosclerotic heart disease of native coronary artery without angina pectoris; F02.80 Dementia in other diseases classified elsewhere, unspecified severity, without behavioral disturbance, psychotic disturbance, mood disturbance, and anxiety; G40.909 Epilepsy, unspecified, not intractable, without status epilepticus; I69.998 Other sequelae following unspecified cerebrovascular disease; H54.7 Unspecified visual loss; K44.9 Diaphragmatic hernia without obstruction or gangrene; F32.9 Major depressive disorder, single episode, unspecified; B37.9 Candidiasis, unspecified; L30.4 Erythema intertrigo; L40.9 Psoriasis, unspecified; E87.6 Hypokalemia; E83.42 Hypomagnesemia; K40.90 Unilateral inguinal hernia, without obstruction or gangrene, not specified as recurrent; E83.39 Other disorders of phosphorus metabolism; Z95.5 Presence of coronary angioplasty implant and graft; Z87.891 Personal history of nicotine dependence
CPT/HCPCS: 36415; 71010; 80048; 80053; 80069; 81000; 82805; 83605; 83690; 83735; 84100; 85007; 85025; 85027; 85610; 85730; 86141; 87040; 87081; 87088; 87324; 87449; 96361; 96365

== ENCOUNTER 2016-09-18 03:57 | Day surgery (SDC) | payer MEDICARE ==
[~2016-09-18] VITALS: Ht 177.8 cm; Wt 90.7 kg
[~2016-09-18 03:57] MED LIST changes: +ALPR0.254 PO; +CHOL4PAC3 PO; +MAGN400T39 PO; +METR500T21 PO; +MICO90PO TOP; +POTA-51 PO; +QUET25TA73 PO
--- NOTE | 2016-09-18 04:33 | ED GU-Male ---
General Chief Complaint: Foreign Body Stated Complaint: CATHETER BROKE INSIDE PT Nursing Triage Note: PT TO ER VIA EMS FROM [facility]. HE REPORTEDLY STRETCHED HIS CATHETER UNTIL IT BROKE. REMAINING CATHETER UNABLE TO BE RETRIEVED. Source: EMS, [facility] records, old records History of Present Illness Time seen by provider: 04:04 Initial Comments [facility] PT WAS JUST DISMISSED FROM HOSPITAL--HAD UTI/ SEPSIS WITH C. DIF, AND MORA PLACED YESTERDAY FOR URINARY RETENTION ( HAD BEEN GETTING INTERMITTENT STRAIGHT CATHS) PT WAS TRYING TO GET OUT OF BED TONIGHT AND IT STRETCHED HIS CATHETER UNTIL IT BROKE. NURSING STAFF WERE NOT ABLE TO RETRIEVE THE INDWELLING PARTS OF THE CATHETER, AND PT ARRIVES WITH THE BROKEN CATHETER ( PLACED IN A BAG BY RETIREMENT STAFF ) , WHICH APPEARS TO BE BROKEN AT APPROXIMATELY MID-LENGTH. Allergies and Home Medications Allergies Coded Allergies: No Known Drug Allergies (Unverified , 09/01/16) Home Medications Acetaminophen 500 Mg Tablet, 1,000 MG PO HS PRN for PAIN-MILD, (Reported) TAKES 2 (500 MG) TABLETS Alprazolam 0.25 Mg Tablet, 0.25 MG PO Q6HR PRN for AGITATION, #30 Ref 5 Prescribed by: BRYANT WAGNER on 09/17/16908 Aspirin 81 Mg Tablet.dr, 81 MG PO DAILY, (Reported) Cholestyramine/Aspartame 4 Gm Powd.pack, 4 GM PO DAILY@1000 PRN for DIARRHEA, # 30 Prescribed by: BRYANT WAGNER on 09/17/16 09 Hydrocodone/Acetaminophen 1 Each Tablet, 1 TAB PO Q8H PRN for PAIN-MODERATE, #60 Prescribed by: BRYANT WAGNER on 09/17/16 09 Levetiracetam 500 Mg Tablet, 500 MG PO BID, (Reported) Losartan Potassium 100 Mg Tablet, 100 MG PO DAILY, (Reported) Magnesium Oxide 400 Mg Tablet, 400 MG PO BID, (Reported) Metronidazole 500 Mg Tablet, 500 MG PO TID for 6 Days, #18 Prescribed by: BRYANT WAGNER on 09/17/16 09 Miconazole Nitrate 90 Gm Powder, 1 GM TOP BID for 14 Days, #1 Prescribed by: BRYANT WAGNER on 09/17/16 09 Montelukast Sodium 10 Mg Tablet, 10 MG PO DAILY, (Reported) [place] 3 Polyunsat Fatty Acids 1,000 Mg Cap, 1,000 MG PO DAILY, (Reported) Phenytoin Sodium Extended 100 Mg Capsule, 200 MG PO BID, (Reported) TAKES 2 (100 MG) CAPSULES Potassium Chloride 20 Meq Tablet.er, 20 MEQ PO DAILY, (Reported) Propranolol HCl 40 Mg Tablet, 40 MG PO BID, (Reported) Quetiapine Fumarate 25 Mg Tablet, 50 MG PO HS, #60 Ref 5 Prescribed by: BRYANT WAGNER on 09/17/16 0909 Sertraline HCl 100 Mg Tablet, 100 MG PO DAILY, (Reported) Tamsulosin HCl 0.4 Mg Cap.er.24h, 0.4 MG PO 1800, (Reported) Vit A/C/E AC/Znox/Cupric Oxide 1 Each Tablet, 1 TAB PO HS, (Reported) Constitutional: no symptoms reported Past Sofwfiy-Sfmuyh-Dkmhjq Hx Patient Social History Alcohol Use: Denies Use Recreational Drug Use: No Smoking Status: Former Smoker Type Used: Pipe Former Smoker/When Quit: Feb 14, 2011 2nd Hand Smoke Exposure: No Recent Foreign Travel: No Contact w/Someone Who Travel: No Recent Infectious Disease Expo: No Recent Hopitalizations: No Immunizations Up To Date Tetanus Booster (TDap): Less than 5yrs PED Vaccines UTD: No Date of Pneumonia Vaccine: June 10, 2012 Seasonal Allergies Seasonal Allergies: No Surgeries HX Surgeries: Yes (BOOP-LUNG SURGERY, CATARACTS, DETACHED RETINA; HERNIA REPAIR ) Surgeries: Abdominal, Coronary Stent, Eye Surgery, Tonsillectomy Respiratory Hx Respiratory Disorders: Yes Respiratory Disorders: COPD Cardiovascular Hx Cardiac Disorders: Yes (STENT) Cardiac Disorders: Coronary Artery Disease, Hypertension Neurological Hx Neurological Disorders: Yes Neurological Disorders: Dementia, Parkinson's Disease, Seizure Disorder, Stroke Reproductive System Hx Reproductive Disorders: No Sexually Transmitted Disease: No HIV/AIDS: No Genitourinary Hx Genitourinary Disorders: Yes (pt admits to trouble urinating for years; URINARY RETENTION) Gastrointestinal Hx Gastrointestinal Disorders: Yes Gastrointestinal Disorders: Abdominal Hernia, Diverticulosis, C-Diff, Hiatal Hernia Musculoskeletal Hx Musculoskeletal Disorders: No Endocrine Hx Endocrine Disorders: No HEENT HX ENT Disorders: Yes (DETACHED RETINA HX, vision deficits from stroke) HEENT Disorders: Cataract, Eye Injury Loss of Vision: Bilateral Hearing Impairment: Hard of Hearing Cancer Hx Cancer: No Psychosocial Hx Psychiatric Problems: Yes Behavioral Health Disorders: Depression Integumentary HX Skin/Integumentary Disorder: Yes Skin/Integumentary Disorders: Psoriasis Blood Transfusions Hx Blood Disorders: No Adverse Reaction to a Blood Tr: No Family Medical History Significant Family History: CAD Over 55 Years Old Family Medial History: Cardiovascular disease 19 FATHER, Onset:Unknown Cataracts 19 MOTHER, Onset:Unknown FH: stomach cancer 19 MOTHER, Onset:Unknown Glaucoma 19 MOTHER, Onset:Unknown Physical Exam Vital Signs Vital Sign - Last 12Hours 09/18/16 04:08 Temp 98.5 Pulse 65 Resp 18 B/P (MAP) 162/86 O2 Delivery Room Air Capillary Refill : Less Than 3 Seconds General Appearance: WD/WN, no apparent distress Gastrointestinal: No tenderness, other (QUESTIONABLE MILD DISTENTION OF BLADDER. ) Male: other (MILD TO MODERATE SWELLING TO PENILE TISSUE, BUT EASILY RETRACTS. MEATUS WITH MILD INFLAMMATION AND EXCORIATION AT DORSAL ASPECT. NO BLOOD OR BRUISING NOTED. PT WITH CONSTANT MODERATE LEAKING OF URINE. UNABLE TO VISUALIZE OR PALPATE CATHETER TUBING. ) Neurologic/Psychiatric: alert, other (PT WITH DEMENTIA AND IS AT NORMAL BASELINE PER ) Skin: normal color, warm/dry Progress/Results/Core Measures Results/Orders Vital Signs/I&O Vital Sign - Last 12Hours 09/18/16 04:08 Temp 98.5 Pulse 65 Resp 18 B/P (MAP) 162/86 O2 Delivery Room Air Blood Pressure Mean: 111 Departure Communication Progress Notes 0410--SPOKE WITH DR. KEATING, SURGEON MEDICAL LABORATORY SPECIALIST. ( DR. MEDRANO IS OUT OF TOWN ) HE ACCEPTS PT FOR ADMIT. DISCUSSED WITH PT AND THAT PT WOULD NEED TO BE TRANSFERRED TO UROLOGIST IF DR. KEATING UNABLE TO RETRIEVE RETAINED CATHETER PARTS.THEY UNDERSTAND AND AGREE. Impression Impression: Primary Impression: BROKEN MORA CATHETER WITH RETAINED PARTS Additional Impressions: Urinary retention C. DIFFICILE Dementia Parkinson disease RECENT UTI WITH SEPSIS Disposition: ADMITTED INPATIENT Condition: Stable Decision to Admit Reason: Admit from ER (General) Decision to Admit/Date: Sep 18, 2016 Time/Decision to Admit Time: 04:10 Departure-Patient Inst. Referrals: BRYANT WAGNER MD (PCP/Family) Primary Care Physician ELINA JIMÉNEZ DO Sep 18, 2016 04:33
[2016-09-18 04:55] LABS: BASOPHILS % (AUTO) 0 % (0-10); EOSINOPHILS # (AUTO) 0.5 10^3/uL (0.0-0.3); EOSINOPHILS % (AUTO) 3 % (0-10); LYMPHOCYTES # (AUTO) 1.8 X 10^3 (1.0-4.0); LYMPHOCYTES % (AUTO) 12 % (12-44); MEAN CORPUSCULAR HEMOGLOBIN 30 PG (25-34); MEAN CORPUSCULAR HGB CONC 33 G/DL (32-36); MEAN CORPUSCULAR VOLUME 90 FL (80-99); MEAN PLATELET VOLUME 9.5 FL (7.4-10.4); MONOCYTES # (AUTO) 1.7 X 10^3 (0.0-1.0); MONOCYTES % (AUTO) 11 % (0-12); NEUTROPHILS # (AUTO) 11.1 X 10^3 (1.8-7.8); NEUTROPHILS % (AUTO) 73 % (42-75); PLATELET COUNT 366 10^3/uL (130-400); RED BLOOD COUNT 4.23 10^6/uL (4.35-5.85); RED CELL DISTRIBUTION WIDTH 14.5 % (10.0-14.5); WHITE BLOOD COUNT 15.1 10^3/uL (4.3-11.0)
[2016-09-18 05:11] LABS: ANION GAP 11 MMOL/L (5-14); BLOOD UREA NITROGEN 4 MG/DL (7-18); BUN/CREATININE RATIO 8; CARBON DIOXIDE 24 MMOL/L (21-32); CHLORIDE 101 MMOL/L (98-107); CREATININE SERUM 0.53 MG/DL (0.60-1.30); GFR ESTIMATED > 60; GLUCOSE 114 MG/DL (70-105); POTASSIUM 3.4 MMOL/L (3.6-5.0); SODIUM 136 MMOL/L (135-145)
[2016-09-18 05:15] VITALS: BP 171/91
[2016-09-18 08:00] VITALS: BP 166/88
[2016-09-18] MEDS ORDERED: LACT1CAP39 PO (08:12)
[2016-09-18] MEDS ORDERED: MAGN500T PO (08:12)
[2016-09-18] MEDS ORDERED: QUET25TA PO (08:12)
[2016-09-18] MEDS ORDERED: CATHETER FLUSH 10 ML SYR IV PRN (08:15)
--- NOTE | 2016-09-18 09:57 | Consultation ---
History of Present Illness History of Present Illness Patient Consulted On(bruno/time) 09/18/16 09:52 Time Seen by Provider: 09:28 History of Present Illness Surgery asked to consult regarding owens catheter that "broke off". HPI per ED: PT WAS JUST DISMISSED FROM HOSPITAL--HAD UTI/ SEPSIS WITH C. DIF, AND OWENS PLACED YESTERDAY FOR URINARY RETENTION ( HAD BEEN GETTING INTERMITTENT STRAIGHT CATHS) PT WAS TRYING TO GET OUT OF BED TONIGHT AND IT STRETCHED HIS CATHETER UNTIL IT BROKE. NURSING STAFF WERE NOT ABLE TO RETRIEVE THE INDWELLING PARTS OF THE CATHETER, AND PT ARRIVES WITH THE BROKEN CATHETER ( PLACED IN A BAG BY LONG-TERM STAFF ) , WHICH APPEARS TO BE BROKEN AT APPROXIMATELY MID-LENGTH. states she got a call at around 3am, to come get pt and go with him to ER. She thinks there was 5-6 inches of external owens. Pt doesn't really remember , stating he doesn't know why he had to wait so long to get this taken care of. He has minimal pain, does have urinary leakage from penis, no bleeding. Allergies and Home Medications Allergies Coded Allergies: No Known Drug Allergies (Unverified , 09/01/16) Home Medications Acetaminophen 500 Mg Tablet, 1,000 MG PO HS PRN for PAIN-MILD, (Reported) TAKES 2 (500 MG) TABLETS Alprazolam 0.25 Mg Tablet, 0.25 MG PO Q6HR PRN for AGITATION, #30 Ref 5 Prescribed by: BRYANT WAGNER on 09/17/16 09 Aspirin 81 Mg Tablet.dr, 81 MG PO DAILY, (Reported) Cholestyramine/Aspartame 4 Gm Powd.pack, 4 GM PO DAILY@1000 PRN for DIARRHEA, # 30 Prescribed by: BRYANT WAGNER on 09/17/16 09 Hydrocodone/Acetaminophen 1 Each Tablet, 1 TAB PO Q8H PRN for PAIN-MODERATE, #60 Prescribed by: BRYANT WAGNER on 09/17/16 09 Lactobacillus Rhamnosus GG 1 Each Capsule, 1 CAP PO BID, (Reported) Levetiracetam 500 Mg Tablet, 500 MG PO BID, (Reported) Losartan Potassium 100 Mg Tablet, 100 MG PO DAILY, (Reported) Magnesium Oxide 500 Mg Tablet, 500 MG PO BID, (Reported) Metronidazole 500 Mg Tablet, 500 MG PO TID for 6 Days, #18 Prescribed by: BRYANT WAGNER on 09/17/16 0909 Miconazole Nitrate 90 Gm Powder, 1 GM TOP BID for 14 Days, #1 Prescribed by: BRYANT WAGNER on 09/17/16 0909 Montelukast Sodium 10 Mg Tablet, 10 MG PO DAILY, (Reported) [place] 3 Polyunsat Fatty Acids 1,000 Mg Cap, 1,000 MG PO DAILY, (Reported) Phenytoin Sodium Extended 100 Mg Capsule, 200 MG PO BID, (Reported) TAKES 2 (100 MG) CAPSULES Potassium Chloride 20 Meq Tablet.er, 20 MEQ PO DAILY, (Reported) Propranolol HCl 40 Mg Tablet, 40 MG PO BID, (Reported) Quetiapine Fumarate 25 Mg Tablet, 25 MG PO HS, (Reported) Sertraline HCl 100 Mg Tablet, 100 MG PO DAILY, (Reported) Tamsulosin HCl 0.4 Mg Cap.er.24h, 0.4 MG PO 1800, (Reported) Vit A/C/E AC/Znox/Cupric Oxide 1 Each Tablet, 1 TAB PO HS, (Reported) Past Kafybsp-Ouekvu-Nxotqy Hx Patient Social History Alcohol Use: Denies Use Recreational Drug Use: No Smoking Status: Former Smoker Former Smoker/When Quit: Feb 14, 2011 Type Used: Pipe 2nd Hand Smoke Exposure: No Recent Foreign Travel: No Contact w/Someone Who Travel: No Recent Infectious Disease Expo: No Recent Hopitalizations: No Physical Abuse Screen: No Sexual Abuse: No Immunizations Up To Date Tetanus Booster (TDap): Less than 5yrs PED Vaccines UTD: No Date of Pneumonia Vaccine: June 10, 2012 Seasonal Allergies Seasonal Allergies: No Surgeries HX Surgeries: Yes (BOOP-LUNG SURGERY, CATARACTS, DETACHED RETINA; HERNIA REPAIR ) Surgeries: Abdominal, Coronary Stent, Eye Surgery, Tonsillectomy Respiratory Hx Respiratory Disorders: Yes Respiratory Disorders: COPD Cardiovascular Hx Cardiac Disorders: Yes (STENT) Cardiac Disorders: Coronary Artery Disease, Hypertension Neurological Hx Neurological Disorders: Yes Neurological Disorders: Dementia, Parkinson's Disease, Seizure Disorder, Stroke Reproductive System Hx Reproductive Disorders: No Sexually Transmitted Disease: No HIV/AIDS: No Genitourinary Hx Genitourinary Disorders: Yes (pt admits to trouble urinating for years; URINARY RETENTION) Gastrointestinal Hx Gastrointestinal Disorders: Yes Gastrointestinal Disorders: Abdominal Hernia, Diverticulosis, C-Diff, Hiatal Hernia Musculoskeletal Hx Musculoskeletal Disorders: No Endocrine Hx Endocrine Disorders: No HEENT HX ENT Disorders: Yes (DETACHED RETINA HX, vision deficits from stroke) HEENT Disorders: Cataract, Eye Injury Loss of Vision: Bilateral Hearing Impairment: Hard of Hearing Cancer Hx Cancer: No Psychosocial Hx Psychiatric Problems: Yes Behavioral Health Disorders: Depression Integumentary HX Skin/Integumentary Disorder: Yes Skin/Integumentary Disorders: Psoriasis Blood Transfusions Hx Blood Disorders: No Adverse Reaction to a Blood Tr: No Family Medical History Significant Family History: CAD Over 55 Years Old Family Medial History: Cardiovascular disease 19 FATHER, Onset:Unknown Cataracts 19 MOTHER, Onset:Unknown FH: stomach cancer 19 MOTHER, Onset:Unknown Glaucoma 19 MOTHER, Onset:Unknown Review of Systems-General Constitutional: No chills, No diaphoresis Respiratory: No cough, No dyspnea on exertion, No hemoptysis Cardiovascular: No chest pain, No palpitations Gastrointestinal: No abdominal pain, No hematemesis, No jaundice Genitourinary: dysuria, frequency, No hematuria, other (urinary retention) Psychiatric/Neurological: Pre-Existing Deficit, Tremors Physical Exam-General Problems Physical Exam Vital Signs Vital Sign - Last 12Hours 09/18/16 09/18/16 04:08 05:03 Temp 98.5 Pulse 65 Resp 18 B/P (MAP) 162/86 Pulse Ox 93 O2 Delivery Room Air Capillary Refill : Less Than 3 Seconds General Appearance: WD/WN, no apparent distress Eyes: Bilateral Eye EOMI, Bilateral Eye PERRL HEENT: pharynx normal, No scleral icterus (R), No scleral icterus (L) Respiratory: lungs clear, normal breath sounds, no respiratory distress, no accessory muscle use Cardiovascular: regular rate, rhythm, no murmur Gastrointestinal: non tender, soft, no organomegaly Genital/Rectal: normal genital exam, other (constant urinary leakage) Extremities: no pedal edema, no calf tenderness Skin: warm/dry, pallor Lymphatic: no adenopathy (neck, axilla or groin) Data Review Labs Laboratory Tests 09/18/16 04:30: White Blood Count 15.1H, Red Blood Count 4.23L, Hemoglobin 12.6L, Hematocrit 38L , Mean Corpuscular Volume 90, Mean Corpuscular Hemoglobin 30, Mean Corpuscular Hemoglobin Concent 33, Red Cell Distribution Width 14.5, Platelet Count 366, Mean Platelet Volume 9.5, Neutrophils (%) (Auto) 73, Lymphocytes (%) (Auto) 12, Monocytes (%) (Auto) 11, Eosinophils (%) (Auto) 3, Basophils (%) (Auto) 0, Neutrophils # (Auto) 11.1H, Lymphocytes # (Auto) 1.8, Monocytes # (Auto) 1.7H, Eosinophils # (Auto) 0.5H, Basophils # (Auto) 0.0, Sodium Level 136, Potassium Level 3.4L, Chloride Level 101, Carbon Dioxide Level 24, Anion Gap 11, Blood Urea Nitrogen 4L, Creatinine 0.53L, Estimat Glomerular Filtration Rate > 60, BUN /Creatinine Ratio 8, Glucose Level 114H, Calcium Level 8.0L Assessment/Plan Assessment/Plan Assessment/Plan Traumatically transected owens, retained in urethra, possible bladder. Urinary retention Plan is to take pt to OR for Cystoscopy with retrieval of foreign body (owens). It is possible that we may not be able to remove it, would send to a Urologist then for second attempt and then possibly open retrieval. Discussed risks and complications with pt and his ; not limited to pain, bleeding, infection, creation of false passage. All questions answered to their satisfaction. He will hopefully be sent back to SNF after procedure. Will start SCD's now. Clinical Quality Measures DVT/VTE Risk/Contraindication: Risk Factor Score Per Nursin RFS Level Per Nursing on Admit: 4+=Very High RACHEL KEATING DO Sep 18, 2016 09:57
[2016-09-18] MEDS ORDERED: LACTATED RINGERS 1,000 ML IV ONE (11:46)
[2016-09-18] MEDS ORDERED: ONDANSETRON 4 MG/2 ML (SDV) Z0FRAN ONE (11:46)
[2016-09-18] MEDS ORDERED: proPOfol 200 MG/20 ML (DIPRIVAN) VIAL IV ONE (11:46)
[2016-09-18] MEDS ORDERED: LIDOCAINE PF 2% 5 ML (XYLOCAINE) VIAL ONE (11:46)
[2016-09-18] MEDS ORDERED: SEVOFLURANE (ULTANE) 15 ML INHAL SOLN ONE ×2 (11:46→14:03)
[2016-09-18] MEDS ORDERED: MIDAZOLAM 2 MG/2 ML (VERSED) VIAL ONE (11:47)
[2016-09-18] MEDS ORDERED: fentaNYL INJECTION 100 MCG/2 ML AMP ONE (11:47)
[2016-09-18 12:00] VITALS: BP 190/90
[2016-09-18] MEDS ORDERED: CATHETER FLUSH 10 ML SYR IV SCH (14:00)
[2016-09-18] MEDS ORDERED: LACTATED RINGERS 1,000 ML IV PRN (14:06)
[2016-09-18] MEDS ORDERED: morphine INJ 10 MG/ML 1ML (SYR OR VIAL) IVP PRN (14:15)
[2016-09-18 15:43] VITALS: BP 174/97
--- NOTE | 2016-09-18 16:10 | Progress Note-Post Operative ---
Post-Operative Progess Note Surgeon (s)/Hotel General Manager (s) Surgeon RACHEL KEATING DO Hotel General Manager: none Pre-Operative Diagnosis retained foreign body in urethra Post-Operative Diagnosis same Procedure & Operative Findings Date of Procedure 09/18/16 Procedure Performed/Findings Removal of foreign body from urethra of penis Placement of owens catheter Anesthesia Type IV Sedation Estimated Blood Loss Estimated blood loss (mL): none Specimens/Packing Specimens Removed distal portion of owens catheter, not sent to pathology RACHEL KEATING DO Sep 18, 2016 16:10
--- NOTE | 2016-09-18 16:12 | Discharge Inst-Urology ---
Discharge Inst-Urology Discharge Medications New, Converted, or Re-newed RX: Other Patient Instructions/Follow Up Plan Esteban care. Increase oral fluids for 48 hours and then as needed. Diet and Activity as tolerated. If questions or concerns contact your physician Or seek help at emergency department. RACHEL KEATING DO Sep 18, 2016 16:12
[2016-09-18 17:26] VITALS: BP 174/97
--- NOTE | 2016-09-19 17:23 | OPERATIVE REPORT ---
DATE OF SERVICE: 09/18/2016 PREOPERATIVE DIAGNOSIS: Retained foreign body in the penis and urethra. POSTOPERATIVE DIAGNOSIS: Retained foreign body in the penis and urethra. PROCEDURES: 1. Removal of foreign body from the penis and urethra. 2. Placement of Esteban catheter. SURGEON: Johnnie Zhu DO. PUBLIC HEALTH NUTRITIONIST: None. ANESTHESIA: IV sedation by anesthesiologist. SPECIMEN: Distal portion of Esteban catheter, but was not sent to pathology. BLOOD LOSS: None. FLUIDS: Scant. INDICATION FOR PROCEDURE: The patient is a long term patient who apparently got out of bed and fell and broke the Esteban catheter off. Plan was to do a cystoscopy, but that was not necessary. FINDINGS: The patient had Esteban catheter removed and then had a new one placed. PROCEDURE NOTE: After informed consent was obtained, the patient was brought to the operating room. He was placed on table in the lithotomy position. Plan had been to do a cystoscopy to go and grab the Esteban; however, once the patient got into lithotomy position and was completely relaxed and the foreskin pulled back a little bit, actually the catheter came out of the tip of the penis. Just a very small portion was out, able to use then just a hemostat to grab this portion of the catheter and then pulled it out very easily and the rest of the catheter came completely out; therefore, did not have to do a cystoscopy on the patient, then sterilely prepped the penis and replaced a new Esteban catheter under sterile condition. The patient tolerated this procedure and he was transferred to recovery room in stable condition. Sponge and needle counts were correct at the end of the case. Job ID: [id number] DocumentID: [id number] Dictated Date: 09/18/2016 18:22:49 In Service Educator Date: 09/18/2016 23:49:09 Dictated By: JOHNNIE ZHU DO
[2016-10-28] MEDS ORDERED: METR500T21 PO (08:22)
[2016-10-28] MEDS ORDERED: VANC125C4 PO (08:32)
== END 2016-09-18 17:34 ==
LOC: EDUNIT# 03:57 → ER 03:58 → 4TH 04:10 → UNDOADMOB 04:10 → SDC 04:10 → 4TH 05:05 → SDC 17:34 → UNDODISOB 17:34
PROVIDERS: ATTEND Surgery
DX: T83.091A Other mechanical complication of indwelling urethral catheter, initial encounter (principal); W06.XXXA Fall from bed, initial encounter; Y92.122 Bedroom in nursing home as the place of occurrence of the external cause; I25.10 Atherosclerotic heart disease of native coronary artery without angina pectoris; I10 Essential (primary) hypertension; J44.9 Chronic obstructive pulmonary disease, unspecified; F02.80 Dementia in other diseases classified elsewhere, unspecified severity, without behavioral disturbance, psychotic disturbance, mood disturbance, and anxiety; G20 Parkinson's disease; G40.909 Epilepsy, unspecified, not intractable, without status epilepticus; Z86.73 Personal history of transient ischemic attack (TIA), and cerebral infarction without residual deficits; Z95.5 Presence of coronary angioplasty implant and graft; Z87.891 Personal history of nicotine dependence; Z79.899 Other long term (current) drug therapy
CPT/HCPCS: 36415; 80048; 85025; 99211; G0378

== ENCOUNTER 2016-10-18 19:03 | Inpatient (IN) | payer MEDICARE ==
[~2016-10-18] VITALS: Ht 177.8 cm; Wt 105.7 kg
[2016-10-18] VITALS (9 sets, daily range): BP systolic 97–153; BP diastolic 62–91
[~2016-10-18 19:03] MED LIST changes: +LACT1CAP39 PO; +MAGN500T PO; +QUET25TA PO
[2016-10-18] MEDS ORDERED: NS IV 1000 ML 1,000 ML IV PRN (19:06)
[2016-10-18] MEDS ORDERED: VANCOMYCIN INJECTION 1,000 MG in NS (IVPB) 250 ML IV SCH (19:15)
[2016-10-18] MEDS ORDERED: ONDANSETRON 4 MG/2 ML (SDV) Z0FRAN IVP PRN (19:15)
[2016-10-18] MEDS ORDERED: ACETAMINOPHEN 500 MG TAB (TYLENOL) PO PRN (19:15)
[2016-10-18] MEDS ORDERED: PHARMACY TO DOSE IV SCH (19:15)
[2016-10-18] MEDS ORDERED: NS IV 1000 ML 2,500 ML IV PRN (19:15)
[2016-10-18 22:24] LABS: BASOPHILS # (AUTO) 0.1 10^3/uL (0.0-0.1); BASOPHILS % (AUTO) 0 % (0-10); EOSINOPHILS % (AUTO) 0 % (0-10); LYMPHOCYTES # (AUTO) 1.4 X 10^3 (1.0-4.0); LYMPHOCYTES % (AUTO) 5 % (12-44); MEAN CORPUSCULAR HEMOGLOBIN 30 PG (25-34); MEAN CORPUSCULAR HGB CONC 32 G/DL (32-36); MEAN CORPUSCULAR VOLUME 91 FL (80-99); MEAN PLATELET VOLUME 9.9 FL (7.4-10.4); MONOCYTES # (AUTO) 2.7 X 10^3 (0.0-1.0); MONOCYTES % (AUTO) 9 % (0-12); NEUTROPHILS # (AUTO) 26.5 X 10^3 (1.8-7.8); NEUTROPHILS % (AUTO) 87 % (42-75); PLATELET COUNT 391 10^3/uL (130-400); RED BLOOD COUNT 4.65 10^6/uL (4.35-5.85); RED CELL DISTRIBUTION WIDTH 15.6 % (10.0-14.5)
[2016-10-18 22:27] LABS: WHITE BLOOD COUNT 30.6 10^3/uL (4.3-11.0)
[2016-10-18] MEDS ORDERED: LIDOCAINE UROJET 2% GEL 10 ML PKG ONE (22:28)
[2016-10-18 22:36] LABS: INR 1.1 (0.8-1.4); PROTHROMBIN TIME PATIENT 14.3 SEC (12.2-14.7)
[2016-10-18] MEDS: NS IV 1000 ML 1,000 ML IV SCH ×2 (22:40→23:40)
[2016-10-18 22:41] LABS: ALANINE AMINOTRANSFERASE 38 U/L (0-55); ALBUMIN 3.6 GM/DL (3.2-4.5); ANION GAP 13 MMOL/L (5-14); ASPARTATE AMINO TRANSFERASE 21 U/L (5-34); BLOOD UREA NITROGEN 16 MG/DL (7-18); BUN/CREATININE RATIO 21; CALCIUM 8.7 MG/DL (8.5-10.1); CARBON DIOXIDE 20 MMOL/L (21-32); CHLORIDE 101 MMOL/L (98-107); CREATININE SERUM 0.78 MG/DL (0.60-1.30); GFR ESTIMATED > 60; GLUCOSE 135 MG/DL (70-105); POTASSIUM 4.8 MMOL/L (3.6-5.0); SODIUM 134 MMOL/L (135-145); TOTAL PROTEIN 6.9 GM/DL (6.4-8.2)
[2016-10-18] MEDS ORDERED: VANCOMYCIN 2000 MG/NS 500 ML IVPB IV SCH ×2 (22:45)
[2016-10-18 22:46] LABS: BAND NEUTROPHILS 8 %; BASOPHILS % (MANUAL) 0 %; EOSINOPHILS % (MANUAL) 0 %; LYMPHOCYTES % (MANUAL) 4 %; NEUTROPHILS % (MANUAL) 79 %
[2016-10-18 22:47] LABS: POIKILOCYTOSIS SLIGHT
[2016-10-18] MEDS ORDERED: ASPIRIN 325 MG (5 GR) TABLET ONE (23:00)
[2016-10-18] MEDS ORDERED: PANTOPRAZOLE 40 MG/10 ML (PROTONIX) VIAL ONE (23:02)
[2016-10-18] MEDS ORDERED: AMIODARONE 150 MG/3 ML (CORDARONE) AMP IV ONE (23:03)
[2016-10-18] MEDS ORDERED: AMIODARONE 450 MG/9 ML (CORDARONE) VIAL IV ONE (23:03)
[2016-10-18] MEDS ORDERED: D5W IV SOLUTION (EXCEL) 250 ML IV ONE (23:03)
[2016-10-18 23:12] LABS: ABG BASE EXCESS -4.1 MMOL/L (-2.5-2.5); ABG HCO3 19 MMOL/L (23-27); ABG OXYGEN SATURATION 94 % (94-100); ABG PCO2 29 MMHG (35-45); ABG PH 7.44 (7.37-7.43); ABG PO2 73 MMHG (79-93); ABG TCO2 19.9 MMOL/L (21.0-31.0)
[2016-10-18 23:13] LABS: ALLENS TEST YES-POS; PATIENT TEMP 100.9
[2016-10-18] MEDS ORDERED: [UNRECOGNIZED DRUG - OTHER] IV ONE ×2 (23:15)
[2016-10-18] MEDS ORDERED: D5W IV ONE ×2 (23:15)
[2016-10-18] MEDS ORDERED: ASPIRIN 325 MG (5 GR) TABLET PO ONE (23:15)
[2016-10-18 23:17] LABS: BILIRUBIN,URINE NEGATIVE (NEGATIVE); KETONES,URINE 1+ (NEGATIVE); LEUKOCYTE ESTERASE ,URINE 1+ (NEGATIVE); NITRITE,URINE POSITIVE (NEGATIVE); PH,URINE 5 (5-9); PROTEIN,URINE 1+ (NEGATIVE); UROBILINOGEN,URINE NORMAL (NORMAL)
[2016-10-18 23:23] LABS: MAGNESIUM 1.8 MG/DL (1.8-2.4)
[2016-10-18] MEDS: ENOXAPARIN 40 MG/0.4 ML (LOVENOX) SYR SC SCH (23:24)
[2016-10-18] MEDS: PIPERACILLIN SODIUM/TAZOBACTAM 4.5 GM in NS (IVPB) 100 ML IV SCH (23:25)
[2016-10-18] MEDS: PANTOPRAZOLE 40 MG/10 ML (PROTONIX) VIAL IV SCH (23:28)
[2016-10-18 23:32] LABS: SQUAMOUS EPITHELIAL CELL,UR 0-2 /HPF
[2016-10-18 23:36] LABS: TROPONIN I < 0.30 NG/ML (<0.30)
[2016-10-18] MEDS ORDERED: D5W 100 ML IVPB 100 ML IV ONE (23:41)
[2016-10-18] MEDS ORDERED: meTOprolol 5 MG/5 ML (LOPRESSOR) VIAL IV PRN (23:45)
[2016-10-18] MEDS: ALPRAZolam 0.25 MG (XANAX) TAB PO PRN (23:53)
[2016-10-19] VITALS (41 sets, daily range): BP systolic 84–149; BP diastolic 53–87
[2016-10-19] MEDS: AMIODARONE 450 MG/D5W 250 ML (EXCEL) IV SCH ×4 (00:08→08:52)
[2016-10-19] MEDS: VANCOMYCIN ORAL SUSPENSION 60 ML BOTTLE PO SCH ×2 (00:08→01:43)
[2016-10-19] MEDS: NS IV 1000 ML 1,000 ML IV SCH ×6 (00:30→22:21)
[2016-10-19] MEDS: LEVETIRACETAM 500 MG (KEPPRA) TAB PO SCH ×3 (01:41→20:10)
[2016-10-19] MEDS: QUEtiapine 25 MG (SEROquel) TAB IMMEDIATE RELEASE PO SCH ×3 (01:42→20:10)
[2016-10-19] MEDS: DIVALPROX SPRINKLE 125 MG (DEPAKOTE) CAP PO SCH ×5 (01:42→23:21)
[2016-10-19] MEDS: PHENYTOIN 100 MG (DILANTIN) CAP PO SCH ×3 (01:42→20:10)
[2016-10-19] MEDS ORDERED: NS IV 1000 ML 1,000 ML IV SCH ×2 (02:45→05:30)
[2016-10-19] MEDS ORDERED: NS IV 500 ML 500 ML ONE (02:57)
[2016-10-19] MEDS ORDERED: VANCOMYCIN 1000 MG/VIAL ONE (02:57)
[2016-10-19] MEDS: HYDROCORTISONE 100 MG/2 ML (Solu-CORTEF) VIAL IV SCH ×4 (03:19→20:09)
[2016-10-19 04:55] LABS: BASOPHILS % (AUTO) 0 % (0-10); EOSINOPHILS % (AUTO) 0 % (0-10); LYMPHOCYTES # (AUTO) 0.8 X 10^3 (1.0-4.0); LYMPHOCYTES % (AUTO) 4 % (12-44); MEAN CORPUSCULAR HEMOGLOBIN 29 PG (25-34); MEAN CORPUSCULAR HGB CONC 32 G/DL (32-36); MEAN CORPUSCULAR VOLUME 92 FL (80-99); MEAN PLATELET VOLUME 9.4 FL (7.4-10.4); MONOCYTES # (AUTO) 2.1 X 10^3 (0.0-1.0); MONOCYTES % (AUTO) 11 % (0-12); NEUTROPHILS # (AUTO) 16.8 X 10^3 (1.8-7.8); NEUTROPHILS % (AUTO) 85 % (42-75); PLATELET COUNT 259 10^3/uL (130-400); RED BLOOD COUNT 4.11 10^6/uL (4.35-5.85); RED CELL DISTRIBUTION WIDTH 15.7 % (10.0-14.5); WHITE BLOOD COUNT 19.7 10^3/uL (4.3-11.0)
[2016-10-19 05:08] LABS: INR 1.3 (0.8-1.4); PROTHROMBIN TIME PATIENT 16.4 SEC (12.2-14.7)
[2016-10-19 05:17] LABS: ANION GAP 12 MMOL/L (5-14); BLOOD UREA NITROGEN 14 MG/DL (7-18); BUN/CREATININE RATIO 20; CALCIUM 7.3 MG/DL (8.5-10.1); CARBON DIOXIDE 15 MMOL/L (21-32); CHLORIDE 110 MMOL/L (98-107); CREATININE SERUM 0.69 MG/DL (0.60-1.30); GFR ESTIMATED > 60; GLUCOSE 131 MG/DL (70-105); MAGNESIUM 1.5 MG/DL (1.8-2.4); PHOSPHORUS 2.3 MG/DL (2.3-4.7); SODIUM 137 MMOL/L (135-145)
[2016-10-19 05:25] LABS: TROPONIN I < 0.30 NG/ML (<0.30)
[2016-10-19] MEDS: POTASSIUM CL 10MEQ/50ML IVPB 50 ML IV SCH (05:30)
[2016-10-19] MEDS: MAGNESIUM 1 GM/100 ML IVPB 100 ML IV SCH ×5 (05:30→12:50)
[2016-10-19] MEDS ORDERED: MAGNESIUM 1 GM/100 ML IVPB 100 ML IV SCH (05:30)
--- NOTE | 2016-10-19 05:39 | Diagnostic Imaging Report ---
EXAM: CHEST 1 VIEW, AP/PA ONLY INDICATION: Fever. Sepsis. COMPARISON: Chest radiograph 09/12/2016. FINDINGS: Low lung volumes. No focal pulmonary opacity, pleural effusion or pneumothorax. Calcified aorta. No acute osseous findings. IMPRESSION: Low lung volumes. Otherwise, no acute cardiopulmonary findings. Dictated by: Dictated on workstation # [id number]
[2016-10-19] MEDS: KCL 20 MEQ TAB (K-DUR) PO SCH (05:59)
[2016-10-19] MEDS: PIPERACILLIN SODIUM/TAZOBACTAM 4.5 GM in NS (IVPB) 100 ML IV SCH (06:12)
[2016-10-19] MEDS: OMEGA 3 (FISH OIL) 1000 MG CAP PO SCH (06:19)
[2016-10-19] MEDS: LACTOBACILLUS Acidoph/Bulgar (LACTINEX/FLORANEX) TAB PO SCH ×3 (06:19→14:44)
--- NOTE | 2016-10-19 06:26 | Pulmonary Consultation ---
History of Present Illness History of Present Illness Date of Consultation 10/19/16 06:20 Time Seen by Provider: 06:21 Date of Admission History of Present Illness 76yo with hx of dementia and is a poor historian transferred from [facility] secondary sepsis, sinus tach, fever, and found to have C DIFF. Found to have WBC of 30, LA 3. Pt was hypotensive however he has responded to IVF. He has had total of 4 liters. PT is currently on PO/IV vanco, Zosyn. Pt is on RA and CXR is clear. Pt has already been yang cultured. I am consulted for ICU management. Allergies and Home Medications Allergies Coded Allergies: No Known Drug Allergies (Unverified , 09/01/16) Home Medications Acetaminophen 500 Mg Tablet, 1,000 MG PO HS PRN for PAIN-MILD, (Reported) TAKES 2 (500 MG) TABLETS Alprazolam 0.25 Mg Tablet, 0.25 MG PO Q6H PRN for AGITATION, (Reported) Aspirin 81 Mg Tablet.dr, 81 MG PO DAILY, (Reported) Cholestyramine (with Sugar) 4 Gm Powd.pack, 4 GM PO BID, (Reported) Hydrocodone/Acetaminophen 1 Each Tablet, 1 TAB PO Q8H PRN for PAIN-MODERATE, ( Reported) Lactobacillus Rhamnosus GG 1 Each Capsule, 1 CAP PO BID, (Reported) Levetiracetam 500 Mg Tablet, 500 MG PO BID, (Reported) Losartan Potassium 100 Mg Tablet, 100 MG PO DAILY, (Reported) Magnesium Oxide 500 Mg Tablet, 500 MG PO BID, (Reported) Melatonin/Pyridoxine HCl (B6) 1 Each Tablet, 6 MG PO HS PRN for SLEEP, (Reported ) TAKES 2 (3 MG) TABLETS Montelukast Sodium 10 Mg Tablet, 10 MG PO DAILY, (Reported) Mv-Mn/FA/Vit K/Lycop/Lut/Zeaxa 1 Each Tablet, 1 TAB PO HS, (Reported) [place] 3 Polyunsat Fatty Acids 1,000 Mg Cap, 1,000 MG PO DAILY, (Reported) Phenytoin Sodium Extended 100 Mg Capsule, 200 MG PO BID, (Reported) TAKES 2 (100 MG) CAPSULES Potassium Chloride 20 Meq Tablet.er, 20 MEQ PO DAILY, (Reported) Propranolol HCl 40 Mg Tablet, 40 MG PO BID, (Reported) Quetiapine Fumarate 100 Mg Tablet, 100 MG PO HS, (Reported) Sertraline HCl 100 Mg Tablet, 100 MG PO DAILY, (Reported) Tamsulosin HCl 0.4 Mg Cap.er.24h, 0.4 MG PO 1800, (Reported) Past Eyhtoul-Unqxpo-Yarplm Hx Patient Social History Alcohol Use: Denies Use Recreational Drug Use: No Type Used: Pipe Former Smoker, Quit: Feb 14, 2011 2nd Hand Smoke Exposure: No Recent Foreign Travel: No Contact w/Someone Who Travel: No Recent Infectious Disease Expo: No Recent Hopitalizations: No Immunizations Up To Date Tetanus Booster (TDap): Less than 5yrs PED Vaccines UTD: No Date of Pneumonia Vaccine: June 10, 2012 Seasonal Allergies Seasonal Allergies: No Surgeries History of Surgeries: Yes (BOOP-LUNG SURGERY, CATARACTS, DETACHED RETINA; HERNIA REPAIR ) Surgeries: Abdominal, Coronary Stent, Eye Surgery, Tonsillectomy Respiratory History of Respiratory Disorde: Yes Respiratory Disorders: COPD Currently Using CPAP: No Currently Using BIPAP: No Cardiovascular History of Cardiac Disorders: Yes Cardiac Disorders: Coronary Artery Disease, Hypertension Neurological History of Neurological Disord: Yes Neurological Disorders: Dementia, Parkinson's Disease, Seizure Disorder, Stroke Reproductive System Hx Reproductive Disorders: No Sexually Transmitted Disease: No HIV/AIDS: No Genitourinary History of Genitourinary Disor: Yes (urinary retention) Gastrointestinal History of Gastrointestinal Di: Yes Gastrointestinal Disorders: Abdominal Hernia, Diverticulosis, C-Diff, Hiatal Hernia Musculoskeletal History of Musculoskeletal Dis: Yes Endocrine History of Endocrine Disorders: No HEENT History of HEENT Disorders: Yes HEENT Disorders: Cataract, Eye Injury Loss of Vision: Bilateral Hearing Impairment: Hard of Hearing Cancer History of Cancer: No Did You Recieve Any Treatments: No Psychosocial History of Psychiatric Problem: Yes Behavioral Health Disorders: Depression Integumentary History of Skin or Integumenta: Yes Skin/Integumentary Disorders: Psoriasis Blood Transfusions History of Blood Disorders: No Adverse Reaction to a Blood Tr: No Family Medical History Significant Family History: CAD Over 55 Years Old Family Medial History: Cardiovascular disease 19 FATHER, Onset:Unknown Cataracts 19 MOTHER, Onset:Unknown FH: stomach cancer 19 MOTHER, Onset:Unknown Glaucoma 19 MOTHER, Onset:Unknown Exam Exam Vital Signs Date Time Temp Pulse Resp B/P (MAP) Pulse Ox O2 Delivery O2 Flow Rate FiO2 10/19/16 06:11 100.9 10/19/16 05:00 101 23 115/64 100 Room Air 10/19/16 04:45 109 36 121/63 100 Room Air 10/19/16 04:30 110 24 119/73 100 Room Air 10/19/16 04:15 104 24 111/65 100 Room Air 10/19/16 04:00 105 23 113/78 99 Room Air 10/19/16 04:00 99.9 10/19/16 04:00 94 Room Air 10/19/16 03:45 109 29 113/66 98 Room Air 10/19/16 03:30 113 28 111/63 97 Room Air 10/19/16 03:15 117 24 107/59 98 Room Air 10/19/16 03:00 121 28 92/57 97 Room Air 10/19/16 02:45 128 32 94/60 97 Room Air 10/19/16 02:30 129 32 84/53 99 Room Air 10/19/16 02:15 129 30 100/56 100 Room Air 10/19/16 02:00 124 27 122/58 100 Room Air 10/19/16 01:45 123 36 146/76 100 Room Air 10/19/16 01:30 120 34 127/78 100 Room Air 10/19/16 01:15 115 25 100 Room Air 10/19/16 01:00 112 30 100 Room Air 10/19/16 01:00 112 10/19/16 00:45 113 31 121/70 100 Room Air 10/19/16 00:30 114 10 127/69 100 Room Air 10/19/16 00:15 112 28 122/70 100 Room Air 10/19/16 00:00 124 15 101/68 100 Room Air 10/19/16 00:00 96 Room Air 10/18/16 23:45 130 28 112/67 100 Room Air 10/18/16 23:30 131 15 110/71 100 Room Air 10/18/16 23:15 133 29 113/66 100 Room Air 10/18/16 23:00 137 25 111/65 98 Room Air 10/18/16 22:45 140 24 97/62 100 Room Air 10/18/16 22:30 138 27 105/67 100 Room Air 10/18/16 22:15 140 27 116/74 100 Room Air 10/18/16 22:00 141 34 126/79 100 Room Air 10/18/16 21:45 147 25 153/91 91 Room Air 10/18/16 21:45 147 10/18/16 21:40 97 Room Air General Appearance: Mild Distress, Obese Respiratory: Lungs Clear, No Accessory Muscle Use, No Respiratory Distress Cardiovascular: No JVD, No Murmur, Tachycardia Gastrointestinal: non tender, soft, distended, No guarding, No rebound, No tenderness Extremity: Normal Capillary Refill, Normal Inspection, Non Tender Neurologic/Psychiatric: Alert, No No Motor/Sensory Deficits Skin: Normal Color, Warm/Dry Lymphatic: No Adenopathy Results Lab Laboratory Tests 10/18/16 21:50 10/19/16 04:35 Assessment/Plan Assessment/Plan -Severe Sepsis -Pt is on severe sepsis protocol -Yang cultures pending CDiff colitis -repeat C diff -Change Zosyn to IV flagyl -Continue PO/IV vanco for now Metabolic lactic acidosis -IVF -Monitor Hx of seizures Poor historian/dementia 255 Clinical Quality Measures DVT/VTE Risk/Contraindication: Risk Factor Score Per Nursin RFS Level Per Nursing on Admit: 4+=Very High GRISELDA RAMIREZ DO Oct 19, 2016 06:26
[2016-10-19 08:39] LABS: ALANINE AMINOTRANSFERASE 24 U/L (0-55); ALBUMIN 2.7 GM/DL (3.2-4.5); ANION GAP 11 MMOL/L (5-14); ASPARTATE AMINO TRANSFERASE 13 U/L (5-34); BLOOD UREA NITROGEN 12 MG/DL (7-18); BUN/CREATININE RATIO 18; CALCIUM 6.8 MG/DL (8.5-10.1); CARBON DIOXIDE 15 MMOL/L (21-32); CHLORIDE 111 MMOL/L (98-107); CREATININE SERUM 0.65 MG/DL (0.60-1.30); GFR ESTIMATED > 60; GLUCOSE 156 MG/DL (70-105); POTASSIUM 3.7 MMOL/L (3.6-5.0); SODIUM 137 MMOL/L (135-145); TOTAL PROTEIN 4.7 GM/DL (6.4-8.2)
[2016-10-19] MEDS: ASPIRIN 81 MG CHEW (CHILDREN'S ASA) PO SCH (08:53)
[2016-10-19] MEDS: meTOprolol TARTRATE 25 MG (LOPRESSOR) TABLET PO SCH ×2 (08:54→20:08)
[2016-10-19] MEDS: SERTRALINE 100 MG (ZOLOFT) TAB PO SCH (08:55)
[2016-10-19] MEDS: MONTELUKAST 10 MG (SINGULAIR) TAB PO SCH (08:55)
[2016-10-19] MEDS: VANCOMYCIN ORAL 250 MG/5 ML 60 ML PO SCH ×8 (08:55→23:22)
--- NOTE | 2016-10-19 09:27 | Consultation ---
History of Present Illness History of Present Illness Patient Consulted On(bruno/time) 10/19/16 09:21 Date Seen by Provider: Oct 19, 2016 Time Seen by Provider: 09:22 History of Present Illness consult requested by Dr. Sandra for C. difficile Patient is a 76-year-old male who is transferred from [facility] adult behavioral unit. Patient with dementia. Patient was transferred to via [facility] due to patient having sepsis. Patient with long history of recurrent urinary tract infections. Multiple antibiotic usages. Patient has reportedly had C. difficile infection previously. Patient having multiple loose stools. patient while another facility became hypotensive and tachycardic with fever. He had a white count of 30,000 and a lactic acid of 3. He has responded to IV fluids. No family at bedside. Patient poor historian. Allergies and Home Medications Allergies Coded Allergies: No Known Drug Allergies (Unverified , 09/01/16) Home Medications Acetaminophen 500 Mg Tablet, 1,000 MG PO HS PRN for PAIN-MILD, (Reported) TAKES 2 (500 MG) TABLETS Alprazolam 0.25 Mg Tablet, 0.25 MG PO Q6HR PRN for AGITATION, #30 Ref 5 Prescribed by: BRYANT WAGNER on 09/17/16 09 Aspirin 81 Mg Tablet.dr, 81 MG PO DAILY, (Reported) Cholestyramine/Aspartame 4 Gm Powd.pack, 4 GM PO DAILY@1000 PRN for DIARRHEA, # 30 Prescribed by: BRYANT WAGNER on 09/17/16 09 Hydrocodone/Acetaminophen 1 Each Tablet, 1 TAB PO Q8H PRN for PAIN-MODERATE, #60 Prescribed by: BRYANT WAGNER on 09/17/16908 Lactobacillus Rhamnosus GG 1 Each Capsule, 1 CAP PO BID, (Reported) Levetiracetam 500 Mg Tablet, 500 MG PO BID, (Reported) Losartan Potassium 100 Mg Tablet, 100 MG PO DAILY, (Reported) Magnesium Oxide 500 Mg Tablet, 500 MG PO BID, (Reported) Metronidazole 500 Mg Tablet, 500 MG PO TID for 6 Days, #18 Prescribed by: BRYANT WAGNER on 09/17/16 09 Miconazole Nitrate 90 Gm Powder, 1 GM TOP BID for 14 Days, #1 Prescribed by: BRYANT WAGNER on 09/17/16 09 Montelukast Sodium 10 Mg Tablet, 10 MG PO DAILY, (Reported) [place] 3 Polyunsat Fatty Acids 1,000 Mg Cap, 1,000 MG PO DAILY, (Reported) Phenytoin Sodium Extended 100 Mg Capsule, 200 MG PO BID, (Reported) TAKES 2 (100 MG) CAPSULES Potassium Chloride 20 Meq Tablet.er, 20 MEQ PO DAILY, (Reported) Propranolol HCl 40 Mg Tablet, 40 MG PO BID, (Reported) Quetiapine Fumarate 25 Mg Tablet, 25 MG PO HS, (Reported) Sertraline HCl 100 Mg Tablet, 100 MG PO DAILY, (Reported) Tamsulosin HCl 0.4 Mg Cap.er.24h, 0.4 MG PO 1800, (Reported) Vit A/C/E AC/Znox/Cupric Oxide 1 Each Tablet, 1 TAB PO HS, (Reported) Past Zfhulae-Jrbbvx-Sqlezh Hx Patient Social History Alcohol Use: Denies Use Recreational Drug Use: No Former Smoker, Quit: Feb 14, 2011 Type Used: Pipe 2nd Hand Smoke Exposure: No Recent Foreign Travel: No Contact w/Someone Who Travel: No Recent Infectious Disease Expo: No Recent Hopitalizations: No Physical Abuse Screen: No Sexual Abuse: No Immunizations Up To Date Tetanus Booster (TDap): Less than 5yrs PED Vaccines UTD: No Date of Pneumonia Vaccine: June 10, 2012 Seasonal Allergies Seasonal Allergies: No Surgeries History of Surgeries: Yes (BOOP-LUNG SURGERY, CATARACTS, DETACHED RETINA; HERNIA REPAIR ) Surgeries: Abdominal, Coronary Stent, Eye Surgery, Tonsillectomy Respiratory History of Respiratory Disorde: Yes Respiratory Disorders: COPD Cardiovascular History of Cardiac Disorders: Yes Cardiac Disorders: Coronary Artery Disease, Hypertension Neurological History of Neurological Disord: Yes Neurological Disorders: Dementia, Parkinson's Disease, Seizure Disorder, Stroke Reproductive System Hx Reproductive Disorders: No Sexually Transmitted Disease: No HIV/AIDS: No Genitourinary History of Genitourinary Disor: Yes (urinary retention) Gastrointestinal History of Gastrointestinal Di: Yes Gastrointestinal Disorders: Abdominal Hernia, Diverticulosis, C-Diff, Hiatal Hernia Musculoskeletal History of Musculoskeletal Dis: Yes Endocrine History of Endocrine Disorders: No HEENT History of HEENT Disorders: Yes HEENT Disorders: Cataract, Eye Injury Loss of Vision: Bilateral Hearing Impairment: Hard of Hearing Cancer History of Cancer: No Psychosocial History of Psychiatric Problem: Yes Behavioral Health Disorders: Depression Integumentary History of Skin or Integumenta: Yes Skin/Integumentary Disorders: Psoriasis Blood Transfusions History of Blood Disorders: No Adverse Reaction to a Blood Tr: No Family Medical History Significant Family History: CAD Over 55 Years Old Family Medial History: Cardiovascular disease 19 FATHER, Onset:Unknown Cataracts 19 MOTHER, Onset:Unknown FH: stomach cancer 19 MOTHER, Onset:Unknown Glaucoma 19 MOTHER, Onset:Unknown Review of Systems-General ROS-Unable to Obtain: unable to provide due to dementia Physical Exam-General Problems Physical Exam Vital Signs Vital Sign - Last 12Hours 10/18/16 10/18/16 21:40 21:45 Pulse 147 Resp 25 B/P (MAP) 153/91 Pulse Ox 97 O2 Delivery Room Air Capillary Refill : General Appearance: no apparent distress HEENT: PERRL/EOMI Neck: supple Respiratory: normal breath sounds, no respiratory distress Cardiovascular: tachycardia Gastrointestinal: soft, no organomegaly, distended, No tenderness Rectal: other (flex tube in place) Back: no CVA tenderness Extremities: non-tender, normal inspection Neurologic/Psychiatric: alert, No oriented x 3 Skin: warm/dry Data Review Labs Laboratory Tests 10/18/16 21:50: White Blood Count 30.6*H, Red Blood Count 4.65, Hemoglobin 13.7, Hematocrit 42, Mean Corpuscular Volume 91, Mean Corpuscular Hemoglobin 30, Mean Corpuscular Hemoglobin Concent 32, Red Cell Distribution Width 15.6H, Platelet Count 391, Mean Platelet Volume 9.9, Neutrophils (%) (Auto) 87H, Lymphocytes (%) (Auto) 5L , Monocytes (%) (Auto) 9, Eosinophils (%) (Auto) 0, Basophils (%) (Auto) 0, Neutrophils # (Auto) 26.5H, Lymphocytes # (Auto) 1.4, Monocytes # (Auto) 2.7H, Eosinophils # (Auto) 0.0, Basophils # (Auto) 0.1, Neutrophils % (Manual) 79, Lymphocytes % (Manual) 4, Monocytes % (Manual) 9, Eosinophils % (Manual) 0, Basophils % (Manual) 0, Band Neutrophils 8, Hypersegmented Neutrophils SLIGHT, Toxic Granulation 1+, Clumped Platelets OCCASIONAL, Poikilocytosis SLIGHT, Elliptocytes SLIGHT, Prothrombin Time 14.3, INR Comment 1.1, Activated Partial Thromboplast Time 36H, Sodium Level 134L, Potassium Level 4.8, Chloride Level 101, Carbon Dioxide Level 20L, Anion Gap 13, Blood Urea Nitrogen 16, Creatinine 0.78, Estimat Glomerular Filtration Rate > 60, BUN/Creatinine Ratio 21, Glucose Level 135H, Lactic Acid Level 3.20*H, Calcium Level 8.7, Magnesium Level 1.8, Total Bilirubin 1.0, Aspartate Amino Transf (AST/SGOT) 21, Alanine Aminotransferase (ALT/SGPT) 38, Alkaline Phosphatase 141H, Troponin I < 0.30, Total Protein 6.9, Albumin 3.6 10/18/16 22:40: Urine Color YELLOW, Urine Clarity SLIGHTLY CLOUDY, Urine pH 5, Urine Specific [place] 1.015L, Urine Protein 1+H, Urine Glucose (UA) NEGATIVE, Urine Ketones 1+ H, Urine Nitrite POSITIVEH, Urine Bilirubin NEGATIVE, Urine Urobilinogen NORMAL , Urine Leukocyte Esterase 1+H, Urine RBC (Auto) 1+H, Urine RBC RARE, Urine WBC 2-5, Urine Squamous Epithelial Cells 0-2, Urine Renal Epithelial Cells NONE, Urine Crystals NONE, Urine Bacteria MODERATEH, Urine Casts PRESENT, Urine Hyaline Casts 2-5H, Urine Mucus MODERATEH, Urine Culture Indicated YES 10/18/16 23:00: Blood Gas Puncture Site LEFT RADIAL, Blood Gas Patient Temperature 100.9, Arterial Blood pH 7.44H, Arterial Blood Partial Pressure CO2 29L, Arterial Blood Partial Pressure O2 73L, Arterial Blood HCO3 19L, Arterial Blood Total CO2 19.9L, Arterial Blood Oxygen Saturation 94, Arterial Blood Base Excess -4.1L , Nicholas Test YES-POS, Blood Gas Ventilator Setting NO, Blood Gas Inspired Oxygen ROOM AIR 10/19/16 01:00: Lactic Acid Level 1.72 10/19/16 04:35: White Blood Count 19.7H, Red Blood Count 4.11L, Hemoglobin 12.1L, Hematocrit 38L , Mean Corpuscular Volume 92, Mean Corpuscular Hemoglobin 29, Mean Corpuscular Hemoglobin Concent 32, Red Cell Distribution Width 15.7H, Platelet Count 259, Mean Platelet Volume 9.4, Neutrophils (%) (Auto) 85H, Lymphocytes (%) (Auto) 4L , Monocytes (%) (Auto) 11, Eosinophils (%) (Auto) 0, Basophils (%) (Auto) 0, Neutrophils # (Auto) 16.8H, Lymphocytes # (Auto) 0.8L, Monocytes # (Auto) 2.1H, Eosinophils # (Auto) 0.0, Basophils # (Auto) 0.0, Prothrombin Time 16.4H, INR Comment 1.3, Activated Partial Thromboplast Time 43H, Sodium Level 137, Potassium Level 4.0, Chloride Level 110H, Carbon Dioxide Level 15L, Anion Gap 12 , Blood Urea Nitrogen 14, Creatinine 0.69, Estimat Glomerular Filtration Rate > 60, BUN/Creatinine Ratio 20, Glucose Level 131H, Lactic Acid Level 2.85*H, Calcium Level 7.3L, Phosphorus Level 2.3, Magnesium Level 1.5L, Troponin I < 0.30 10/19/16 08:10: Sodium Level 137, Potassium Level 3.7, Chloride Level 111H, Carbon Dioxide Level 15L, Anion Gap 11, Blood Urea Nitrogen 12, Creatinine 0.65, Estimat Glomerular Filtration Rate > 60, BUN/Creatinine Ratio 18, Glucose Level 156H, Lactic Acid Level 2.95*H, Calcium Level 6.8L, Troponin I < 0.30, Total Bilirubin 1.0, Aspartate Amino Transf (AST/SGOT) 13, Alanine Aminotransferase ( ALT/SGPT) 24, Alkaline Phosphatase 92, Total Protein 4.7L, Albumin 2.7L Microbiology 10/18/16 C. difficile GDH Antigen & Toxins - Final, Complete Assessment/Plan Assessment/Plan Assessment/Plan patient is a 76-year-old male with sepsis, C. difficile colitis, dementia. Patient responded to IV fluid resuscitation. Patient is on IV Flagyl and vancomycin and oral vancomycin. We'll continue this regimen at this time. White blood cell count down to 19.7 We'll get x-ray of the abdomen at this time, considering CT abd/pelvis but since no significant tenderness at this time will hold off. Will continue with current medical management. Clinical Quality Measures DVT/VTE Risk/Contraindication: Risk Factor Score Per Nursin RFS Level Per Nursing on Admit: 4+=Very High EULALIA NOONAN DO Oct 19, 2016 09:27
--- NOTE | 2016-10-19 09:41 | Diagnostic Imaging Report ---
INDICATION: Febrile. Comparison with 10/18/2016. Findings: There is some improvement in aeration on today's study. No infiltrates have developed. The portable chest is very lordotic showing lung apices well which are clear though the lung bases are not well seen. IMPRESSION: 1. Very lordotic chest showing upper lungs to be clear. Lung bases not well visualized. No significant changes noted from previous exam. Dictated by: Dictated on workstation # [id number]
--- NOTE | 2016-10-19 10:27 | Diagnostic Imaging Report ---
EXAM: ABDOMEN/KUB 1VIEW INDICATION: Abdominal distention. COMPARISON: CT abdomen and pelvis with IV contrast 08/17/2016. FINDINGS: Nonspecific bowel gas pattern. No large stool burden. Moderate to advanced spondylotic changes in the visualized spine. Advanced degenerative changes in the right hip. No acute osseous findings. IMPRESSION: Nonspecific bowel gas pattern. Dictated by: Dictated on workstation # [id number]
--- NOTE | 2016-10-19 10:33 | Consultation-Cardiology ---
HPI-Cardiology Cardiology Consultation Date of Consultation 10/19/16 Date of Admission Time Seen by Provider: 10:27 Indication: tachycardia, hypotensive shock HPI 76 years old gentleman with history of dementia, was in the geriatric behavioral unit, transferred due to sepsis and hypotension in addition to tachycardia, being treated for C. difficile colitis and recurrent UTI. He is unable to provide any history but fairly anxious and uncomfortable, was tachycardic with a heart rate 140, started on amiodarone drip and currently with a heart rate 70. Still hypotensive. Having abdominal distention and diminished bowel sounds. Home Medications & Allergies Allergies: Coded Allergies: No Known Drug Allergies (Unverified , 09/01/16) Home Medication List Reviewed: Yes YQE-Tzewhb-Qatnhe Hx Patient Social History Employed/Student: retired Alcohol Use: Denies Use Recreational Drug Use: No Former smoker/When Quit: Feb 14, 2011 Type Used: Pipe 2nd Hand Smoke Exposure: No Recent Foreign Travel: No Recent Infectious Disease Expo: No Recent Hopitalizations: No Physical Abuse Screen: No Sexual Abuse: No Immunizations Up To Date Tetanus Booster (TDap): Less than 5yrs Date of Pneumonia Vaccine: June 10, 2012 Past Medical History past medical history is discussed below Family Medical History Significant Family History: CAD Over 55 Years Old Family History: 19 FATHER Cardiovascular disease, Onset:Unknown 19 MOTHER Cataracts, Onset:Unknown FH: stomach cancer, Onset:Unknown Glaucoma, Onset:Unknown Constitutional: malaise, weakness, other (confused, not following command, unable to provide review of systems) Reviewed Test Results Reviewed Test Results Lab Laboratory Tests Test 10/18/16 21:50 10/18/16 22:40 10/18/16 23:00 10/19/16 01:00 Range/Units White Blood Count 30.6 *H 4.3-11.0 10^3/uL Red Blood Count 4.65 4.35-5.85 10^6/uL Hemoglobin 13.7 13.3-17.7 G/DL Hematocrit 42 40-54 % Mean Corpuscular Volume 91 80-99 FL Mean Corpuscular Hemoglobin 30 25-34 PG Mean Corpuscular Hemoglobin Concent 32 32-36 G/DL Red Cell Distribution Width 15.6 H 10.0-14.5 % Platelet Count 391 130-400 10^3/uL Mean Platelet Volume 9.9 7.4-10.4 FL Neutrophils (%) (Auto) 87 H 42-75 % Lymphocytes (%) (Auto) 5 L 12-44 % Monocytes (%) (Auto) 9 0-12 % Eosinophils (%) (Auto) 0 0-10 % Basophils (%) (Auto) 0 0-10 % Neutrophils # (Auto) 26.5 H 1.8-7.8 X 10^3 Lymphocytes # (Auto) 1.4 1.0-4.0 X 10^3 Monocytes # (Auto) 2.7 H 0.0-1.0 X 10^3 Eosinophils # (Auto) 0.0 0.0-0.3 10^3/uL Basophils # (Auto) 0.1 0.0-0.1 10^3/uL Neutrophils % (Manual) 79 % Lymphocytes % (Manual) 4 % Monocytes % (Manual) 9 % Eosinophils % (Manual) 0 % Basophils % (Manual) 0 % Band Neutrophils 8 % Hypersegmented Neutrophils SLIGHT Toxic Granulation 1+ Clumped Platelets OCCASIONAL Poikilocytosis SLIGHT Elliptocytes SLIGHT Prothrombin Time 14.3 12.2-14.7 SEC INR Comment 1.1 0.8-1.4 Activated Partial Thromboplast Time 36 H 24-35 SEC Sodium Level 134 L 135-145 MMOL/L Potassium Level 4.8 3.6-5.0 MMOL/L Chloride Level 101 98-107 MMOL/L Carbon Dioxide Level 20 L 21-32 MMOL/L Anion Gap 13 5-14 MMOL/L Blood Urea Nitrogen 16 7-18 MG/DL Creatinine 0.78 0.60-1.30 MG/DL Estimat Glomerular Filtration Rate > 60 BUN/Creatinine Ratio 21 Glucose Level 135 H 70-105 MG/DL Lactic Acid Level 3.20 *H 1.72 0.50-2.00 MMOL/L Calcium Level 8.7 8.5-10.1 MG/DL Magnesium Level 1.8 1.8-2.4 MG/DL Total Bilirubin 1.0 0.1-1.0 MG/DL Aspartate Amino Transf (AST/SGOT) 21 5-34 U/L Alanine Aminotransferase (ALT/SGPT) 38 0-55 U/L Alkaline Phosphatase 141 H 40-136 U/L Troponin I < 0.30 <0.30 NG/ML Total Protein 6.9 6.4-8.2 GM/DL Albumin 3.6 3.2-4.5 GM/DL Urine Color YELLOW Urine Clarity SLIGHTLY CLOUDY Urine pH 5 5-9 Urine Specific [place] 1.015 L 1.016-1.022 Urine Protein 1+ H NEGATIVE Urine Glucose (UA) NEGATIVE NEGATIVE Urine Ketones 1+ H NEGATIVE Urine Nitrite POSITIVE H NEGATIVE Urine Bilirubin NEGATIVE NEGATIVE Urine Urobilinogen NORMAL NORMAL MG/DL Urine Leukocyte Esterase 1+ H NEGATIVE Urine RBC (Auto) 1+ H NEGATIVE Urine RBC RARE /HPF Urine WBC 2-5 /HPF Urine Squamous Epithelial Cells 0-2 /HPF Urine Renal Epithelial Cells NONE /HPF Urine Crystals NONE /LPF Urine Bacteria MODERATE H /HPF Urine Casts PRESENT /LPF Urine Hyaline Casts 2-5 H /LPF Urine Mucus MODERATE H /LPF Urine Culture Indicated YES Blood Gas Puncture Site LEFT RADIAL Blood Gas Patient Temperature 100.9 Arterial Blood pH 7.44 H 7.37-7.43 Arterial Blood Partial Pressure CO2 29 L 35-45 MMHG Arterial Blood Partial Pressure O2 73 L 79-93 MMHG Arterial Blood HCO3 19 L 23-27 MMOL/L Arterial Blood Total CO2 19.9 L 21.0-31.0 MMOL/L Arterial Blood Oxygen Saturation 94 94-100 % Arterial Blood Base Excess -4.1 L -2.5-2.5 MMOL/L Nicholas Test YES-POS Blood Gas Ventilator Setting NO Blood Gas Inspired Oxygen ROOM AIR Test 10/19/16 04:35 10/19/16 08:10 Range/Units White Blood Count 19.7 H 4.3-11.0 10^3/uL Red Blood Count 4.11 L 4.35-5.85 10^6/uL Hemoglobin 12.1 L 13.3-17.7 G/DL Hematocrit 38 L 40-54 % Mean Corpuscular Volume 92 80-99 FL Mean Corpuscular Hemoglobin 29 25-34 PG Mean Corpuscular Hemoglobin Concent 32 32-36 G/DL Red Cell Distribution Width 15.7 H 10.0-14.5 % Platelet Count 259 130-400 10^3/uL Mean Platelet Volume 9.4 7.4-10.4 FL Neutrophils (%) (Auto) 85 H 42-75 % Lymphocytes (%) (Auto) 4 L 12-44 % Monocytes (%) (Auto) 11 0-12 % Eosinophils (%) (Auto) 0 0-10 % Basophils (%) (Auto) 0 0-10 % Neutrophils # (Auto) 16.8 H 1.8-7.8 X 10^3 Lymphocytes # (Auto) 0.8 L 1.0-4.0 X 10^3 Monocytes # (Auto) 2.1 H 0.0-1.0 X 10^3 Eosinophils # (Auto) 0.0 0.0-0.3 10^3/uL Basophils # (Auto) 0.0 0.0-0.1 10^3/uL Prothrombin Time 16.4 H 12.2-14.7 SEC INR Comment 1.3 0.8-1.4 Activated Partial Thromboplast Time 43 H 24-35 SEC Sodium Level 137 137 135-145 MMOL/L Potassium Level 4.0 3.7 3.6-5.0 MMOL/L Chloride Level 110 H 111 H 98-107 MMOL/L Carbon Dioxide Level 15 L 15 L 21-32 MMOL/L Anion Gap 12 11 5-14 MMOL/L Blood Urea Nitrogen 14 12 7-18 MG/DL Creatinine 0.69 0.65 0.60-1.30 MG/DL Estimat Glomerular Filtration Rate > 60 > 60 BUN/Creatinine Ratio 20 18 Glucose Level 131 H 156 H 70-105 MG/DL Lactic Acid Level 2.85 *H 2.95 *H 0.50-2.00 MMOL/L Calcium Level 7.3 L 6.8 L 8.5-10.1 MG/DL Phosphorus Level 2.3 2.3-4.7 MG/DL Magnesium Level 1.5 L 1.8-2.4 MG/DL Troponin I < 0.30 < 0.30 <0.30 NG/ML Total Bilirubin 1.0 0.1-1.0 MG/DL Aspartate Amino Transf (AST/SGOT) 13 5-34 U/L Alanine Aminotransferase (ALT/SGPT) 24 0-55 U/L Alkaline Phosphatase 92 40-136 U/L Total Protein 4.7 L 6.4-8.2 GM/DL Albumin 2.7 L 3.2-4.5 GM/DL Physical Exam Vital Signs Vital Sign - Last 12Hours 10/18/16 10/18/16 21:40 21:45 Pulse 147 Resp 25 B/P (MAP) 153/91 Pulse Ox 97 O2 Delivery Room Air Capillary Refill : General Appearance: WD/WN, Moderate Distress Eyes: Bilateral Eye Normal Inspection, Bilateral Eye PERRL, Bilateral Eye EOMI HEENT: Pharynx Normal Neck: Full Range of Motion, Normal Inspection Respiratory: Chest Non Tender, Crackles Cardiovascular: Regular Rate, Rhythm, No Edema, No Gallop, No JVD, Normal Peripheral Pulses Gastrointestinal: Abnormal Bowel Sounds, Distended Back: Normal Inspection Extremity: Normal Inspection, No Pedal Edema Neurologic/Psychiatric: Alert, Disoriented x3 Skin: Normal Color, Warm/Dry Lymphatic: No Adenopathy A/P-Cardiology Admission Diagnosis Severe sepsis Paroxysmal atrial flutter Hypotensive shock Metabolic acidosis Assessment/Plan Hypotensive shock, severe sepsis, patient is on protocol, receiving antibiotics. Continue with fluid support and monitor closely. Tachycardia, appeared to be paroxysmal atrial flutter with 2-1 conduction, significant artifacts on EKG. Currently back in sinus rhythm on amiodarone drip. I will stop the drip and continue with IV fluid and continue to monitor closely. Cannot tolerate beta blockers or calcium channel blockers at this time due to hypotension. UTI, yang cultures pending, patient is on Zosyn and oral vancomycin due to C. difficile colitis. C. difficile colitis, distended abdomen with diminished bowel sounds, managed by Dr. Ham. Metabolic acidosis, lactic acidosis, receiving IV fluid. Continue to monitor. Dementia, patient was on the behavioral health unit, unable to provide history. History of seizure disorder Dr. Blank is covering for me starting tomorrow Clinical Quality Measures DVT/VTE Risk/Contraindication: Risk Factor Score Per Nursin RFS Level Per Nursing on Admit: 4+=Very High KESHAV DERAS MD Oct 19, 2016 10:32
--- NOTE | 2016-10-19 12:27 | History & Physical-Hospitalist ---
HPI History of Present Illness: HPI/Chief Complaint CC: Severe sepsis due to C diff colitis recurrent type HPI: This is a 76-year-old white male patient of Dr. Oliver Mckeon whom I'm covering this weekend that was transferred over to [facility] higher-level care due to severe sepsis from C. difficile colitis recurrent type. He is known to me from prior [facility] unit admission for severe dementia related behaviors but he had just arrived on had just been completed on C. difficile colitis treatment had formed stools but began running a fever yesterday with low blood pressure and malodorous stools once again so patient was placed on IV fluids and transferred over to be a [facility] ICU with presumed C. difficile colitis that ultimately returned results from [facility] to be positive. I spoke with Dr. Moya and Dr. Ham in depth regarding this consultation and then I spoke with Dr. Cornejo in depth today. Patient has required 5 L of fluid thus far and placed on vancomycin IV and by mouth and lactic acid continues to rise. I did speak with his Mariam who knows me from prior medical care provided at the [facility] behavioral unit at [facility] and I did obtain a DO NOT RESUSCITATE order since the fact he is further declined and required reasonable treatment if he should have further critical illness decline and she was reasonable and obtain the DO NOT RESUSCITATE order. Patient is repeating help me help me as he was at the [facility] unit and currently he appears to be extremely ill and wyman and pale. Patient has a very poor prognosis at this current time. He has a history of urinary retention managed by urology and placed on multiple antibiotics in the past and the C. difficile is more severe now than prior. Source: RN/MD Exam Limitations: clinical condition Date Seen 10/19/16 Time Seen by Provider: 11:00 Attending Physician Oliver Mckeon MD PCP Oliver Mckeon MD Referring Physician Date of Admission Oct 18, 2016 at 21:32 Home Medications & Allergies Home Medications Reviewed patient Home Medication Reconciliation Form Allergies Allergies Coded Allergies No Known Drug Allergies (Unverified09/01/16) Past Dntxcpm-Ulcjaw-Gofmmb Hx Patient Social History Marrital Status: Employed/Student: retired Alcohol Use: Denies Use Recreational Drug Use: No Former Smoker, Quit: Feb 14, 2011 Type Used: Pipe 2nd Hand Smoke Exposure: No Physical Abuse Screen: No Sexual Abuse: No Recent Foreign Travel: No Contact w/other who traveled: No Recent Hopitalizations: No Recent Infectious Disease Expo: No Immunizations Up To Date Tetanus Booster (TDap): Less than 5yrs Pediatric: No Date of Pneumonia Vaccine: June 10, 2012 Seasonal Allergies Seasonal Allergies: No Surgeries Yes (BOOP-LUNG SURGERY, CATARACTS, DETACHED RETINA; HERNIA REPAIR ) Abdominal, Coronary Stent, Eye Surgery, Tonsillectomy Respiratory Yes Pneumonia Currently Using CPAP: No Currently Using BIPAP: No Cardiovascular Yes Coronary Artery Disease, Hypertension Neurological Yes Dementia, Parkinson's Disease, Seizure Disorder, Stroke Reproductive System Hx Reproductive Disorders: No Sexually Transmitted Disease: No HIV/AIDS: No Genitourinary Yes (urinary retention) Gastrointestinal Yes Abdominal Hernia, Diverticulosis, C-Diff, Hiatal Hernia Musculoskeletal Yes Endocrine History of Endocrine Disorders: No HEENT History of HEENT Disorders: Yes HEENT Disorders: Cataract, Eye Injury Loss of Vision: Bilateral Hearing Impairment: Hard of Hearing Cancer No Did You Recieve Any Treatments: No Psychosocial History of Psychiatric Problem: Yes Behavioral Health Disorders: Depression Integumentary History of Skin or Integumenta: Yes Skin/Integumentary Disorders: Psoriasis Blood Transfusions History of Blood Disorders: No Adverse Reaction to a Blood Tr: No Family Medical History Significant Family History: CAD Over 55 Years Old Family Hx: Cardiovascular disease 19 FATHER, Onset:Unknown Cataracts 19 MOTHER, Onset:Unknown FH: stomach cancer 19 MOTHER, Onset:Unknown Glaucoma 19 MOTHER, Onset:Unknown Review of Systems Constitutional: see HPI, dizziness, fever, malaise, weakness EENTM: no symptoms reported Respiratory: no symptoms reported Cardiovascular: palpitations Gastrointestinal: abdominal pain (LLQ), diarrhea, loss of appetite, nausea, vomiting Genitourinary: decreased output Musculoskeletal: no symptoms reported Skin: no symptoms reported Psychiatric/Neurological: Anxiety, Depressed, Emotional Problems Physical Exam Physical Exam Vital Signs Vital Sign - Last 12Hours 10/18/16 10/18/16 21:40 21:45 Pulse 147 Resp 25 B/P (MAP) 153/91 Pulse Ox 97 O2 Delivery Room Air Capillary Refill : General Appearance: WD/WN, Chronically ill, Mild Distress (due to abdominal discomfort) Eyes: Bilateral Eye Normal Inspection, Bilateral Eye PERRL HEENT: PERRL/EOMI, Normal ENT Inspection, Pharynx Normal Neck: Full Range of Motion, Normal Inspection, Non Tender, Supple, Carotid Bruit Respiratory: Chest Non Tender, Normal Breath Sounds, No Accessory Muscle Use, No Respiratory Distress, Decreased Breath Sounds Cardiovascular: No Edema, No Gallop, No JVD, No Murmur, Normal Peripheral Pulses, Irregularly Irregular Gastrointestinal: Normal Bowel Sounds, No Organomegaly, No Pulsatile Mass, Soft , Abnormal Bowel Sounds, Tenderness (generalized) Back: Normal Inspection, No CVA Tenderness, No Vertebral Tenderness Extremity: Normal Capillary Refill, Normal Inspection, Normal Range of Motion, Non Tender, No Calf Tenderness, No Pedal Edema Neurologic/Psychiatric: Alert, No Motor/Sensory Deficits, Normal Mood/Affect, Disoriented x3 Skin: Normal Color, Warm/Dry Lymphatic: No Adenopathy Results Results/Procedures Lab Laboratory Tests 10/18/16 21:50 10/19/16 04:35 10/19/16 08:10 Assessment/Plan Admission Diagnosis Assessment: 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 difficile colitis but very grave prognosis Pain control I appreciate general surgery, pulmonary critical care, cardiology consultations in this very complex medical patient DO NOT RESUSCITATE Update family if worsens Clinical Quality Measures DVT/VTE Risk/Contraindication: Risk Factor Score Per Nursin RFS Level Per Nursing on Admit: 4+=Very High SUNNI JENNINGS DO Oct 19, 2016 12:27
[2016-10-19] MEDS: VANCOMYCIN 1 GM/NS 250 ML IVPB IV SCH ×4 (12:51→20:09)
[2016-10-19] MEDS: PANTOPRAZOLE 40 MG/10 ML (PROTONIX) VIAL IV SCH ×2 (12:55→22:47)
[2016-10-19] MEDS: metroNIDAZOLE 500MG/100ML IVPB 100 ML IV SCH ×2 (14:44→22:14)
[2016-10-19] MEDS: NOREPINEPHRINE 4 MG in D5W 250 ML (IVPB) 250 ML IV SCH ×3 (14:45→22:46)
[2016-10-19] MEDS ORDERED: QUET100T69 PO (16:11)
[2016-10-19] MEDS ORDERED: HYDR-757 PO (16:11)
[2016-10-19] MEDS ORDERED: CHOL4PAC2 PO (16:11)
[2016-10-19] MEDS ORDERED: MV-M1TAB38 PO (16:11)
[2016-10-19] MEDS ORDERED: MELA1TAB27 PO (16:11)
[2016-10-19] MEDS ORDERED: ALPR0.254 PO (16:11)
[2016-10-19] MEDS: ALFUZOSIN HCL 10 MG TAB (UROXATRAL) PO SCH (18:26)
[2016-10-19] MEDS: ENOXAPARIN 40 MG/0.4 ML (LOVENOX) SYR SC SCH (18:26)
[2016-10-19] MEDS ORDERED: ALBUMIN 5% 12.5 GM/250 ML 250 ML IV SCH (22:15)
[2016-10-19 23:13] LABS: ALBUMIN 2.5 GM/DL (3.2-4.5); ANION GAP 9 MMOL/L (5-14); BLOOD UREA NITROGEN 12 MG/DL (7-18); BUN/CREATININE RATIO 20; CALCIUM 7.1 MG/DL (8.5-10.1); CARBON DIOXIDE 15 MMOL/L (21-32); CHLORIDE 112 MMOL/L (98-107); CREATININE SERUM 0.59 MG/DL (0.60-1.30); GFR ESTIMATED > 60; GLUCOSE 120 MG/DL (70-105); MAGNESIUM 2.1 MG/DL (1.8-2.4); POTASSIUM 3.6 MMOL/L (3.6-5.0); SODIUM 136 MMOL/L (135-145)
[2016-10-19 23:20] LABS: TROPONIN I < 0.30 NG/ML (<0.30)
[2016-10-20] VITALS (18 sets, daily range): BP systolic 94–140; BP diastolic 55–91
[2016-10-20] MEDS ORDERED: NS IV 500 ML 500 ML ONE (02:03)
[2016-10-20] MEDS: HYDROCORTISONE 100 MG/2 ML (Solu-CORTEF) VIAL IV SCH (02:20)
[2016-10-20] MEDS: VANCOMYCIN 1 GM/NS 250 ML IVPB IV SCH ×2 (03:17)
[2016-10-20] MEDS: NS IV 1000 ML 1,000 ML IV SCH ×3 (03:17→19:34)
[2016-10-20] MEDS: NOREPINEPHRINE 4 MG in D5W 250 ML (IVPB) 250 ML IV SCH (03:19)
[2016-10-20] MEDS ORDERED: NS IV 500 ML 500 ML IV SCH ×2 (03:45→05:15)
[2016-10-20 04:47] LABS: BASOPHILS % (AUTO) 0 % (0-10); EOSINOPHILS % (AUTO) 0 % (0-10); LYMPHOCYTES # (AUTO) 0.9 X 10^3 (1.0-4.0); LYMPHOCYTES % (AUTO) 8 % (12-44); MEAN CORPUSCULAR HEMOGLOBIN 29 PG (25-34); MEAN CORPUSCULAR HGB CONC 32 G/DL (32-36); MEAN CORPUSCULAR VOLUME 93 FL (80-99); MEAN PLATELET VOLUME 9.7 FL (7.4-10.4); MONOCYTES # (AUTO) 1.3 X 10^3 (0.0-1.0); MONOCYTES % (AUTO) 12 % (0-12); NEUTROPHILS # (AUTO) 8.4 X 10^3 (1.8-7.8); NEUTROPHILS % (AUTO) 80 % (42-75); PLATELET COUNT 176 10^3/uL (130-400); RED CELL DISTRIBUTION WIDTH 15.9 % (10.0-14.5); WHITE BLOOD COUNT 10.5 10^3/uL (4.3-11.0)
[2016-10-20 05:00] LABS: INR 1.6 (0.8-1.4); PROTHROMBIN TIME PATIENT 19.1 SEC (12.2-14.7)
[2016-10-20] MEDS: KCL 20 MEQ TAB (K-DUR) PO SCH (05:02)
[2016-10-20 05:05] LABS: ALANINE AMINOTRANSFERASE 15 U/L (0-55); ALBUMIN 2.5 GM/DL (3.2-4.5); ANION GAP 5 MMOL/L (5-14); ASPARTATE AMINO TRANSFERASE 7 U/L (5-34); BILIRUBIN,TOTAL 0.5 MG/DL (0.1-1.0); BLOOD UREA NITROGEN 11 MG/DL (7-18); BUN/CREATININE RATIO 20; CALCIUM 6.7 MG/DL (8.5-10.1); CARBON DIOXIDE 17 MMOL/L (21-32); CHLORIDE 115 MMOL/L (98-107); CREATININE SERUM 0.54 MG/DL (0.60-1.30); GFR ESTIMATED > 60; GLUCOSE 125 MG/DL (70-105); PHOSPHORUS 2.2 MG/DL (2.3-4.7); POTASSIUM 3.5 MMOL/L (3.6-5.0); SODIUM 137 MMOL/L (135-145); TOTAL PROTEIN 4.3 GM/DL (6.4-8.2)
[2016-10-20] MEDS: MAGNESIUM 1 GM/100 ML IVPB 100 ML IV SCH (06:05)
[2016-10-20] MEDS: OMEGA 3 (FISH OIL) 1000 MG CAP PO SCH (06:11)
[2016-10-20] MEDS: LACTOBACILLUS Acidoph/Bulgar (LACTINEX/FLORANEX) TAB PO SCH ×3 (06:11→16:25)
[2016-10-20] MEDS: POTASSIUM CL 10MEQ/50ML IVPB 50 ML IV SCH ×5 (06:11→12:35)
[2016-10-20] MEDS: DIVALPROX SPRINKLE 125 MG (DEPAKOTE) CAP PO SCH ×3 (06:11→18:41)
[2016-10-20] MEDS: VANCOMYCIN ORAL 250 MG/5 ML 60 ML PO SCH ×6 (06:11→18:40)
[2016-10-20] MEDS: metroNIDAZOLE 500MG/100ML IVPB 100 ML IV SCH ×3 (06:12→21:17)
[2016-10-20] MEDS ORDERED: NS IV 500 ML 500 ML IV ONE (06:45)
[2016-10-20] MEDS: meTOprolol TARTRATE 25 MG (LOPRESSOR) TABLET PO SCH ×2 (08:08→21:16)
[2016-10-20] MEDS: LEVETIRACETAM 500 MG (KEPPRA) TAB PO SCH ×2 (08:22→21:16)
[2016-10-20] MEDS: QUEtiapine 25 MG (SEROquel) TAB IMMEDIATE RELEASE PO SCH ×2 (08:22→21:15)
[2016-10-20] MEDS: PHENYTOIN 100 MG (DILANTIN) CAP PO SCH ×2 (08:22→21:15)
[2016-10-20] MEDS: MONTELUKAST 10 MG (SINGULAIR) TAB PO SCH (08:23)
[2016-10-20] MEDS: SERTRALINE 100 MG (ZOLOFT) TAB PO SCH (08:23)
[2016-10-20] MEDS: ASPIRIN 81 MG CHEW (CHILDREN'S ASA) PO SCH (08:23)
--- NOTE | 2016-10-20 08:26 | Pulmonary Progress Note ---
Subjective Time Seen by Provider: 08:26 Exam Exam Vital Signs Date Time Temp Pulse Resp B/P (MAP) Pulse Ox O2 Delivery O2 Flow Rate FiO2 10/20/16 07:00 73 10/20/16 06:00 75 15 100/62 100 Room Air 10/20/16 05:00 74 16 97/59 100 Room Air 10/20/16 04:14 97.0 10/20/16 04:00 Room Air 10/20/16 04:00 75 14 96/55 99 Room Air 10/20/16 03:00 80 13 97/58 100 Room Air 10/20/16 02:00 79 14 101/57 100 Room Air 10/20/16 01:00 83 10/20/16 01:00 82 15 94/56 100 Room Air 10/20/16 00:00 Room Air 10/20/16 00:00 84 15 100/58 100 Room Air 10/19/16 23:21 97.1 10/19/16 23:00 88 15 109/57 99 Room Air 10/19/16 22:00 92 19 111/61 99 Room Air 10/19/16 21:00 91 17 97/55 100 Room Air 10/19/16 20:14 97.8 92 20 96/57 100 Room Air 10/19/16 20:00 Room Air 10/19/16 20:00 89 16 99/64 100 Room Air 10/19/16 19:00 93 23 112/56 98 Room Air 10/19/16 19:00 93 10/19/16 18:00 81 15 106/58 100 Room Air 10/19/16 17:00 80 16 103/66 100 Room Air 10/19/16 16:34 97.6 10/19/16 16:30 Room Air 10/19/16 16:00 81 16 105/61 100 Room Air 10/19/16 15:00 80 20 99/64 100 Room Air 10/19/16 14:00 79 18 108/62 100 Room Air 10/19/16 13:00 79 10/19/16 13:00 97.7 80 18 97/59 100 Room Air 10/19/16 12:15 Room Air 10/19/16 09:16 98.0 10/19/16 09:00 101 19 113/87 99 Room Air I & O 10/21/16 07:00 Intake Total 650 ml Balance 650 ml General Appearance: Mild Distress, Obese HEENT: Pharynx Normal Neck: Full Range of Motion, Normal Inspection Respiratory: Lungs Clear, No Accessory Muscle Use, No Respiratory Distress Cardiovascular: No JVD, No Murmur, Tachycardia Gastrointestinal: non tender, soft, distended, No guarding, No rebound, No tenderness Extremity: Normal Capillary Refill, Normal Inspection, Non Tender Neurologic/Psychiatric: Alert, No No Motor/Sensory Deficits Skin: Normal Color, Warm/Dry Lymphatic: No Adenopathy Results Lab Laboratory Tests 10/18/16 21:50 10/19/16 04:35 10/19/16 08:10 10/19/16 22:46 10/20/16 04:32 Assessment/Plan Assessment/Plan -Severe Sepsis -Pt is on severe sepsis protocol -Hameed cultures pending CDiff colitis -repeat C diff - IV flagyl -Continue PO D/C /IV vanco Metabolic lactic acidosis -IVF -Monitor Hx of seizures Poor historian/dementia 233 Clinical Quality Measures DVT/VTE Risk/Contraindication: Risk Factor Score Per Nursin RFS Level Per Nursing on Admit: 4+=Very High GRISELDA RAMIREZ DO Oct 20, 2016 08:26
--- NOTE | 2016-10-20 08:40 | Progress Note (SOAP) ---
Subjective Subjective Date Seen by Provider: Oct 20, 2016 Time Seen by Provider: 08:10 76 yo M admitted/transferred from [facility]- for reoccurence of C.diff. Pt still having occurrences of hypotension- he was given IVF bolus and albumin. Continuing antibiotics. WBC normal. Lactic acid in normal range. Pt reports his belly hurts because he has to pee and poop. He is mad because we are not letting him get up. Review of Systems ROS Unable to Obtain: unable to provide due to dementia General: Chills, Fatigue, Appetite HEENT: No Head Aches Pulmonary: No Dyspnea, Cough Cardiovascular: No: Chest Pain, Palpitations Gastrointestinal: Abdominal Pain, Diarrhea, No: Nausea, Vomiting, Constipation Genitourinary: No Dysuria, Frequency, Incontinence Musculoskeletal: No: neck pain, shoulder pain Neurological: Weakness Objective Exam Vital Signs Vital Signs Date Time Temp Pulse Resp B/P (MAP) Pulse Ox O2 Delivery O2 Flow Rate FiO2 10/20/16 07:00 73 10/20/16 06:00 75 15 100/62 100 Room Air 10/20/16 05:00 74 16 97/59 100 Room Air 10/20/16 04:14 97.0 10/20/16 04:00 Room Air 10/20/16 04:00 75 14 96/55 99 Room Air 10/20/16 03:00 80 13 97/58 100 Room Air 10/20/16 02:00 79 14 101/57 100 Room Air 10/20/16 01:00 83 10/20/16 01:00 82 15 94/56 100 Room Air 10/20/16 00:00 Room Air 10/20/16 00:00 84 15 100/58 100 Room Air 10/19/16 23:21 97.1 10/19/16 23:00 88 15 109/57 99 Room Air 10/19/16 22:00 92 19 111/61 99 Room Air 10/19/16 21:00 91 17 97/55 100 Room Air 10/19/16 20:14 97.8 92 20 96/57 100 Room Air 10/19/16 20:00 Room Air 10/19/16 20:00 89 16 99/64 100 Room Air 10/19/16 19:00 93 23 112/56 98 Room Air 10/19/16 19:00 93 10/19/16 18:00 81 15 106/58 100 Room Air 10/19/16 17:00 80 16 103/66 100 Room Air 10/19/16 16:34 97.6 10/19/16 16:30 Room Air 10/19/16 16:00 81 16 105/61 100 Room Air 10/19/16 15:00 80 20 99/64 100 Room Air 10/19/16 14:00 79 18 108/62 100 Room Air 10/19/16 13:00 79 10/19/16 13:00 97.7 80 18 97/59 100 Room Air 10/19/16 12:15 Room Air 10/19/16 09:16 98.0 I & O 10/21/16 07:00 Intake Total 650 ml Balance 650 ml General Appearance: WD/WN, Mild Distress, Obese Eyes: Bilateral Eye Normal Inspection, Bilateral Eye PERRL, Bilateral Eye EOMI HEENT: PERRL/EOMI Neck: Full Range of Motion, Normal Inspection Respiratory: Lungs Clear, No Accessory Muscle Use, No Respiratory Distress Cardiovascular: Regular Rate, Rhythm, No JVD, No Murmur, Tachycardia Gastrointestinal: Abnormal Bowel Sounds, Distended Rectal: Deferred, Other (rectal tube) Back: Normal Inspection Extremity: Normal Capillary Refill, Normal Inspection, Non Tender Neurologic/Psychiatric: Alert, No No Motor/Sensory Deficits Skin: Normal Color, Warm/Dry Lymphatic: No Adenopathy Results Lab Laboratory Tests 10/19/16 12:30: Lactic Acid Level 3.26*H 10/19/16 12:57: Glucometer 139H 10/19/16 17:50: Lactic Acid Level 3.47*H 10/19/16 18:31: Glucometer 109 10/19/16 22:46: Hemoglobin 10.2L, Sodium Level 136, Potassium Level 3.6, Chloride Level 112H, Carbon Dioxide Level 15L, Anion Gap 9, Blood Urea Nitrogen 12, Creatinine 0.59L , Estimat Glomerular Filtration Rate > 60, BUN/Creatinine Ratio 20, Glucose Level 120H, Lactic Acid Level 2.14*H, Calcium Level 7.1L, Magnesium Level 2.1, Troponin I < 0.30, B-Type Natriuretic Peptide 97.1, Albumin 2.5L 10/20/16 01:03: Glucometer 114H 10/20/16 04:32: Hemoglobin 9.1L, Sodium Level 137, Potassium Level 3.5L, Chloride Level 115H, Carbon Dioxide Level 17L, Anion Gap 5, Blood Urea Nitrogen 11, Creatinine 0.54L , Estimat Glomerular Filtration Rate > 60, BUN/Creatinine Ratio 20, Glucose Level 125H, Lactic Acid Level 0.82, Calcium Level 6.7L, Magnesium Level 2.0, Albumin 2.5L, White Blood Count 10.5, Red Blood Count 3.10L, Hematocrit 29L, Mean Corpuscular Volume 93, Mean Corpuscular Hemoglobin 29, Mean Corpuscular Hemoglobin Concent 32, Red Cell Distribution Width 15.9H, Platelet Count 176, Mean Platelet Volume 9.7, Neutrophils (%) (Auto) 80H, Lymphocytes (%) (Auto) 8L , Monocytes (%) (Auto) 12, Eosinophils (%) (Auto) 0, Basophils (%) (Auto) 0, Neutrophils # (Auto) 8.4H, Lymphocytes # (Auto) 0.9L, Monocytes # (Auto) 1.3H, Eosinophils # (Auto) 0.0, Basophils # (Auto) 0.0, Prothrombin Time 19.1H, INR Comment 1.6H, Activated Partial Thromboplast Time 46H, Phosphorus Level 2.2L, Total Bilirubin 0.5, Aspartate Amino Transf (AST/SGOT) 7, Alanine Aminotransferase (ALT/SGPT) 15, Alkaline Phosphatase 63, Total Protein 4.3L Microbiology 10/18/16 Blood Culture - Preliminary, Resulted No growth 10/18/16 C. difficile GDH Antigen & Toxins - Final, Complete 10/18/16 MRSA Screen - Final, Complete MRSA not isolated 10/18/16 Urine Culture - Final, Complete Pseudomonas Aeruginosa Assessment/Plan Assessment/Plan Assessment/Plan 76 yo M Severe Sepsis due to reoccurence of c.diff colitis, UTI- continue IV metronidazole, po vancomycin- IVF- apap for fever urine culture + pseudomonas treating with ciprofloxacin c.diff colitis- continue metronidazole , vanc- rectal tube in due to output. hypotension- holding losartan- on solucortef urinary retention- catheter; Dr. Ledezma says he may try a minimal invasive procedure in the future- to see if he can help with the retention but we both feel there is a cognitive component that surgery/medicine will not help. Frequent falls and weakness- Patient to work with PT once stable. h/o seizures- continue dilantin 100mg, keppra 500mg- COPD- stable- on 2L oxygen usually during sleeping- no new issues. hypokalemia- due to losses- replacing h/o hypomagnesemia - replacing prn Dementia with behavioral disturbance- progressing. Depression with behavior/verbal disturbance- will continue to reevaluate medication management. Also the fact that he can not see plays a role in his mood. DVT ppx: lovenox. Dispo: continue ICU as pt is still having hypotension IV access is an issue- will order a PICC today- will have lorazepam 0.5-1mg IV pre-medication- -planning to stop IV vancomycin prognosis improving - but fpc prognosis due to co-morbidities not great- hospice? Problems: Clinical Quality Measures DVT/VTE Risk/Contraindication: Risk Factor Score Per Nursin RFS Level Per Nursing on Admit: 4+=Very High BRYANT WAGNER MD Oct 20, 2016 08:40
[2016-10-20] MEDS ORDERED: LORazepam INJ 2 MG/ML (ATIVAN) VIAL IVP NR (08:45)
[2016-10-20] MEDS ORDERED: CIPROFLOXACIN IV 400MG/200ML 200 ML IV SCH (09:00)
--- NOTE | 2016-10-20 09:37 | Diagnostic Imaging Report ---
EXAMINATION: Portable upright radiograph of the chest. INDICATION: Shortness of breath. COMPARISON: 10/19/2016. FINDINGS: The heart is mildly enlarged. There is pulmonary vascular congestion. There is mild right basilar atelectasis. No effusion or pneumothorax. The mediastinum and dorian appear unremarkable. IMPRESSION: Cardiomegaly with pulmonary vascular congestion. Mild right basilar atelectasis. Dictated by: Dictated on workstation # [id number]
--- NOTE | 2016-10-20 10:12 | Progress Note ---
Subjective Date Seen by Provider: Oct 20, 2016 Time Seen by Provider: 10:08 Subjective/Events-last exam Patient is alert not oriented. Patient with no family at bedside. Patient has flexed to per rectum with liquid stool. Patient white count down to normal range. Patient is on oral vancomycin and IV Flagyl. No concerns per nursing. Objective Exam Vital Signs Date Time Temp Pulse Resp B/P (MAP) Pulse Ox O2 Delivery O2 Flow Rate FiO2 10/20/16 08:00 72 133/75 100 Room Air 10/20/16 07:00 73 10/20/16 07:00 71 112/65 100 Room Air 10/20/16 06:00 75 15 100/62 100 Room Air 10/20/16 05:00 74 16 97/59 100 Room Air 10/20/16 04:14 97.0 10/20/16 04:00 Room Air 10/20/16 04:00 75 14 96/55 99 Room Air 10/20/16 03:00 80 13 97/58 100 Room Air 10/20/16 02:00 79 14 101/57 100 Room Air 10/20/16 01:00 83 10/20/16 01:00 82 15 94/56 100 Room Air 10/20/16 00:00 Room Air 10/20/16 00:00 84 15 100/58 100 Room Air 10/19/16 23:21 97.1 10/19/16 23:00 88 15 109/57 99 Room Air 10/19/16 22:00 92 19 111/61 99 Room Air 10/19/16 21:00 91 17 97/55 100 Room Air 10/19/16 20:14 97.8 92 20 96/57 100 Room Air 10/19/16 20:00 Room Air 10/19/16 20:00 89 16 99/64 100 Room Air 10/19/16 19:00 93 23 112/56 98 Room Air 10/19/16 19:00 93 10/19/16 18:00 81 15 106/58 100 Room Air 10/19/16 17:00 80 16 103/66 100 Room Air 10/19/16 16:34 97.6 10/19/16 16:30 Room Air 10/19/16 16:00 81 16 105/61 100 Room Air 10/19/16 15:00 80 20 99/64 100 Room Air 10/19/16 14:00 79 18 108/62 100 Room Air 10/19/16 13:00 79 10/19/16 13:00 97.7 80 18 97/59 100 Room Air 10/19/16 12:15 Room Air I & O 10/21/16 07:00 Intake Total 700 ml Balance 700 ml Capillary Refill : General Appearance: WD/WN HEENT: PERRL/EOMI Neck: Full Range of Motion, Normal Inspection Respiratory: Lungs Clear, No Accessory Muscle Use, No Respiratory Distress Cardiovascular: Regular Rate, Rhythm, No JVD, No Murmur, Tachycardia Gastrointestinal: non tender, soft, distended, No guarding, No rebound, No tenderness Extremity: Normal Capillary Refill, Normal Inspection, Non Tender Neurologic/Psychiatric: Alert, No No Motor/Sensory Deficits Skin: Normal Color, Warm/Dry Lymphatic: No Adenopathy Results Lab Laboratory Tests 10/19/16 12:30: Lactic Acid Level 3.26*H 10/19/16 12:57: Glucometer 139H 10/19/16 17:50: Lactic Acid Level 3.47*H 10/19/16 18:31: Glucometer 109 10/19/16 22:46: Hemoglobin 10.2L, Sodium Level 136, Potassium Level 3.6, Chloride Level 112H, Carbon Dioxide Level 15L, Anion Gap 9, Blood Urea Nitrogen 12, Creatinine 0.59L , Estimat Glomerular Filtration Rate > 60, BUN/Creatinine Ratio 20, Glucose Level 120H, Lactic Acid Level 2.14*H, Calcium Level 7.1L, Magnesium Level 2.1, Troponin I < 0.30, B-Type Natriuretic Peptide 97.1, Albumin 2.5L 10/20/16 01:03: Glucometer 114H 10/20/16 04:32: Hemoglobin 9.1L, Sodium Level 137, Potassium Level 3.5L, Chloride Level 115H, Carbon Dioxide Level 17L, Anion Gap 5, Blood Urea Nitrogen 11, Creatinine 0.54L , Estimat Glomerular Filtration Rate > 60, BUN/Creatinine Ratio 20, Glucose Level 125H, Lactic Acid Level 0.82, Calcium Level 6.7L, Magnesium Level 2.0, Albumin 2.5L, White Blood Count 10.5, Red Blood Count 3.10L, Hematocrit 29L, Mean Corpuscular Volume 93, Mean Corpuscular Hemoglobin 29, Mean Corpuscular Hemoglobin Concent 32, Red Cell Distribution Width 15.9H, Platelet Count 176, Mean Platelet Volume 9.7, Neutrophils (%) (Auto) 80H, Lymphocytes (%) (Auto) 8L , Monocytes (%) (Auto) 12, Eosinophils (%) (Auto) 0, Basophils (%) (Auto) 0, Neutrophils # (Auto) 8.4H, Lymphocytes # (Auto) 0.9L, Monocytes # (Auto) 1.3H, Eosinophils # (Auto) 0.0, Basophils # (Auto) 0.0, Prothrombin Time 19.1H, INR Comment 1.6H, Activated Partial Thromboplast Time 46H, Phosphorus Level 2.2L, Total Bilirubin 0.5, Aspartate Amino Transf (AST/SGOT) 7, Alanine Aminotransferase (ALT/SGPT) 15, Alkaline Phosphatase 63, Total Protein 4.3L Microbiology 10/18/16 Blood Culture - Preliminary, Resulted No growth 10/18/16 C. difficile GDH Antigen & Toxins - Final, Complete 10/18/16 MRSA Screen - Final, Complete MRSA not isolated 10/18/16 Urine Culture - Final, Complete Pseudomonas Aeruginosa Assessment/Plan Assessment/Plan Assessment/Plan C. difficile colitis, sepsis, dementia Patient white count continuing to improve in the normal range. Continue antibiotics Abdomen is still some slight distention but overall not worsening. We will continue to monitor. No surgical intervention at this time. Continue with medical management. Clinical Quality Measures DVT/VTE Risk/Contraindication: Risk Factor Score Per Nursin RFS Level Per Nursing on Admit: 4+=Very High EULALIA NOONAN DO Oct 20, 2016 10:12
--- NOTE | 2016-10-20 10:33 | Progress Note-Cardiology ---
Cardiology SOAP Progress Note Objective: I&O/Vital Signs Vital Sign - Last 12Hours 10/19/16 10/19/16 10/20/16 10/20/16 23:00 23:21 00:00 00:00 Temp 97.1 Pulse 88 84 Resp 15 15 B/P (MAP) 109/57 100/58 Pulse Ox 99 100 O2 Delivery Room Air Room Air Room Air 10/20/16 10/20/16 10/20/16 10/20/16 01:00 01:00 02:00 03:00 Pulse 82 83 79 80 Resp 15 14 13 B/P (MAP) 94/56 101/57 97/58 Pulse Ox 100 100 100 O2 Delivery Room Air Room Air Room Air 10/20/16 10/20/16 10/20/16 10/20/16 04:00 04:00 04:14 05:00 Temp 97.0 Pulse 75 74 Resp 14 16 B/P (MAP) 96/55 97/59 Pulse Ox 99 100 O2 Delivery Room Air Room Air Room Air 10/20/16 10/20/16 10/20/16 10/20/16 06:00 07:00 07:00 08:00 Pulse 75 71 73 72 Resp 15 B/P (MAP) 100/62 112/65 133/75 Pulse Ox 100 100 100 O2 Delivery Room Air Room Air Room Air 10/20/16 10/20/16 09:00 10:00 Pulse 74 73 Resp 16 16 B/P (MAP) 108/65 106/65 Pulse Ox 100 100 O2 Delivery Room Air Room Air Weight (Pounds): 235 Weight (Ounces): 0.0 Weight (Calculated Kilograms): 106.968843 Results/Procedures: Labs Laboratory Tests 10/19/16 12:30: Lactic Acid Level 3.26*H 10/19/16 12:57: Glucometer 139H 10/19/16 17:50: Lactic Acid Level 3.47*H 10/19/16 18:31: Glucometer 109 10/19/16 22:46: Hemoglobin 10.2L, Sodium Level 136, Potassium Level 3.6, Chloride Level 112H, Carbon Dioxide Level 15L, Anion Gap 9, Blood Urea Nitrogen 12, Creatinine 0.59L , Estimat Glomerular Filtration Rate > 60, BUN/Creatinine Ratio 20, Glucose Level 120H, Lactic Acid Level 2.14*H, Calcium Level 7.1L, Magnesium Level 2.1, Troponin I < 0.30, B-Type Natriuretic Peptide 97.1, Albumin 2.5L 10/20/16 01:03: Glucometer 114H 10/20/16 04:32: Hemoglobin 9.1L, Sodium Level 137, Potassium Level 3.5L, Chloride Level 115H, Carbon Dioxide Level 17L, Anion Gap 5, Blood Urea Nitrogen 11, Creatinine 0.54L , Estimat Glomerular Filtration Rate > 60, BUN/Creatinine Ratio 20, Glucose Level 125H, Lactic Acid Level 0.82, Calcium Level 6.7L, Magnesium Level 2.0, Albumin 2.5L, White Blood Count 10.5, Red Blood Count 3.10L, Hematocrit 29L, Mean Corpuscular Volume 93, Mean Corpuscular Hemoglobin 29, Mean Corpuscular Hemoglobin Concent 32, Red Cell Distribution Width 15.9H, Platelet Count 176, Mean Platelet Volume 9.7, Neutrophils (%) (Auto) 80H, Lymphocytes (%) (Auto) 8L , Monocytes (%) (Auto) 12, Eosinophils (%) (Auto) 0, Basophils (%) (Auto) 0, Neutrophils # (Auto) 8.4H, Lymphocytes # (Auto) 0.9L, Monocytes # (Auto) 1.3H, Eosinophils # (Auto) 0.0, Basophils # (Auto) 0.0, Prothrombin Time 19.1H, INR Comment 1.6H, Activated Partial Thromboplast Time 46H, Phosphorus Level 2.2L, Total Bilirubin 0.5, Aspartate Amino Transf (AST/SGOT) 7, Alanine Aminotransferase (ALT/SGPT) 15, Alkaline Phosphatase 63, Total Protein 4.3L Microbiology 10/18/16 Blood Culture - Preliminary, Resulted No growth 10/18/16 C. difficile GDH Antigen & Toxins - Final, Complete 10/18/16 MRSA Screen - Final, Complete MRSA not isolated 10/18/16 Urine Culture - Final, Complete Pseudomonas Aeruginosa A/P: Assessment: Hypotensive shock, severe sepsis - management per medical services Tachycardia, appeared to be paroxysmal atrial flutter with 2-1 conduction, significant artifacts on EKG. Converted to SR on Amiodarone gtt UTI, yang cultures pending, patient is on Zosyn and oral vancomycin due to C. difficile colitis. C. difficile colitis, distended abdomen with diminished bowel sounds, managed by Dr. Ham. Metabolic acidosis, lactic acidosis, receiving IV fluid Dementia, patient was on the behavioral health unit, unable to provide history. History of seizure disorder Plan: Not a suitable candidate for BB or CCB d/t hypotension ERNIE JAY Oct 20, 2016 10:33
[2016-10-20] MEDS ORDERED: TROUGH ORDER-PHARMACY XX NR (11:00)
[2016-10-20] MEDS ORDERED: FAMOTIDINE 20MG/2ML IV (PEPCID) ONE (12:19)
[2016-10-20] MEDS: PANTOPRAZOLE 40 MG/10 ML (PROTONIX) VIAL IV SCH (12:35)
[2016-10-20] MEDS: ALFUZOSIN HCL 10 MG TAB (UROXATRAL) PO SCH (18:41)
[2016-10-20] MEDS: ENOXAPARIN 40 MG/0.4 ML (LOVENOX) SYR SC SCH (18:42)
--- NOTE | 2016-10-20 18:52 | Progress Note-Cardiology ---
Cardiology SOAP Progress Note Subjective: Denies cp or palp or syncope or shortness of breath Objective: I&O/Vital Signs Vital Sign - Last 12Hours 10/20/16 10/20/16 10/20/16 10/20/16 07:00 07:00 08:00 08:00 Pulse 71 73 72 B/P (MAP) 112/65 133/75 Pulse Ox 100 100 O2 Delivery Room Air Room Air Room Air 10/20/16 10/20/16 10/20/16 10/20/16 08:00 09:00 10:00 11:00 Temp 97.4 Pulse 74 73 73 Resp 16 16 18 B/P (MAP) 108/65 106/65 Pulse Ox 100 100 100 O2 Delivery Room Air Room Air Room Air 10/20/16 10/20/16 10/20/16 10/20/16 12:00 12:00 12:00 13:00 Temp 97.0 Pulse 70 70 Resp 15 15 B/P (MAP) 130/80 117/73 Pulse Ox 99 100 O2 Delivery Room Air Room Air Room Air 10/20/16 10/20/16 10/20/16 10/20/16 13:00 14:00 15:00 16:00 Pulse 72 71 68 Resp 6 15 B/P (MAP) 102/91 119/75 Pulse Ox 97 100 O2 Delivery Room Air Room Air Room Air 10/20/16 10/20/16 10/20/16 16:00 16:00 17:00 Temp 97.6 Pulse 69 70 Resp 15 14 B/P (MAP) 112/74 123/73 Pulse Ox 100 100 O2 Delivery Room Air Room Air Intake and Output 10/21/16 00:00 Intake Total 170 ml Output Total 100 ml Balance 70 ml Weight (Pounds): 235 Weight (Ounces): 0.0 Weight (Calculated Kilograms): 106.287911 Constitutional: appears stated age, No apparent distress, well-developed, well- nourished Respiratory: No accessory muscle use, other (good bilat air entry; diminished at the bases) Cardiovascular: regular rate-rhythm, S1 and S2, systolic murmur (faint MALCOLM at card base) Gastrointestional: No tender, No guarding, No rebound, audible bowel sounds Extremities: No clubbing, No cyanosis, No significant edema Neurologic/Psychiatric: grossly intact, power is 5/5 both on sides Skin: No rash on exposed areas, No ulcerations on exposed areas Results/Procedures: Labs Laboratory Tests 10/19/16 22:46: Hemoglobin 10.2L, Sodium Level 136, Potassium Level 3.6, Chloride Level 112H, Carbon Dioxide Level 15L, Anion Gap 9, Blood Urea Nitrogen 12, Creatinine 0.59L , Estimat Glomerular Filtration Rate > 60, BUN/Creatinine Ratio 20, Glucose Level 120H, Lactic Acid Level 2.14*H, Calcium Level 7.1L, Magnesium Level 2.1, Troponin I < 0.30, B-Type Natriuretic Peptide 97.1, Albumin 2.5L 10/20/16 01:03: Glucometer 114H 10/20/16 04:32: Hemoglobin 9.1L, Sodium Level 137, Potassium Level 3.5L, Chloride Level 115H, Carbon Dioxide Level 17L, Anion Gap 5, Blood Urea Nitrogen 11, Creatinine 0.54L , Estimat Glomerular Filtration Rate > 60, BUN/Creatinine Ratio 20, Glucose Level 125H, Lactic Acid Level 0.82, Calcium Level 6.7L, Magnesium Level 2.0, Albumin 2.5L, White Blood Count 10.5, Red Blood Count 3.10L, Hematocrit 29L, Mean Corpuscular Volume 93, Mean Corpuscular Hemoglobin 29, Mean Corpuscular Hemoglobin Concent 32, Red Cell Distribution Width 15.9H, Platelet Count 176, Mean Platelet Volume 9.7, Neutrophils (%) (Auto) 80H, Lymphocytes (%) (Auto) 8L , Monocytes (%) (Auto) 12, Eosinophils (%) (Auto) 0, Basophils (%) (Auto) 0, Neutrophils # (Auto) 8.4H, Lymphocytes # (Auto) 0.9L, Monocytes # (Auto) 1.3H, Eosinophils # (Auto) 0.0, Basophils # (Auto) 0.0, Prothrombin Time 19.1H, INR Comment 1.6H, Activated Partial Thromboplast Time 46H, Phosphorus Level 2.2L, Total Bilirubin 0.5, Aspartate Amino Transf (AST/SGOT) 7, Alanine Aminotransferase (ALT/SGPT) 15, Alkaline Phosphatase 63, Total Protein 4.3L Microbiology 10/18/16 Blood Culture - Preliminary, Resulted No growth 10/18/16 C. difficile GDH Antigen & Toxins - Final, Complete 10/18/16 MRSA Screen - Final, Complete MRSA not isolated 10/18/16 Urine Culture - Final, Complete Pseudomonas Aeruginosa Laboratory Tests 10/18/16 21:50 10/19/16 04:35 10/19/16 08:10 10/19/16 22:46 10/20/16 04:32 A/P: Assessment: Septic shock, managed by Med and ICU services Tachycardia at presentation: sinus vs atrial flutter (treated with iv amidoarone ) UTI, yang cultures pending, patient is on Zosyn and oral vancomycin due to C. difficile colitis. C. difficile colitis, managed by Dr. Ham. Metabolic acidosis and lactic acidosis, being managed by the Med and ICU services Hypokalemia, being corrected Dementia, by history History of seizure disorder Plan: Monitor labs Monitor card rhythm Echo to eval LVEF and wall motion JONA RAGSDALE MD FACP [facility] CCDS Oct 20, 2016 18:51
[2016-10-20] MEDS: FAMOTIDINE 20 MG (PEPCID) TABLET PO SCH (21:16)
[2016-10-20] MEDS: ALPRAZolam 0.25 MG (XANAX) TAB PO PRN (22:54)
[2016-10-21] VITALS: BP 122/71
[2016-10-21] MEDS: DIVALPROX SPRINKLE 125 MG (DEPAKOTE) CAP PO SCH ×4 (00:45→17:27)
[2016-10-21] MEDS: VANCOMYCIN ORAL 250 MG/5 ML 60 ML PO SCH ×8 (00:46→17:32)
[2016-10-21 02:16] LABS: CALCIUM IONIZED 1.07 mmol/L (1.16-1.32); CORRECTED IONIZED CALCIUM 1.02 mmol/L (1.16-1.32)
[2016-10-21] MEDS: NS IV 1000 ML 1,000 ML IV SCH ×5 (02:59→22:05)
[2016-10-21 03:26] VITALS: BP 135/83
[2016-10-21 04:32] LABS: BASOPHILS % (AUTO) 0 % (0-10); EOSINOPHILS # (AUTO) 0.2 10^3/uL (0.0-0.3); EOSINOPHILS % (AUTO) 2 % (0-10); LYMPHOCYTES # (AUTO) 1.2 X 10^3 (1.0-4.0); LYMPHOCYTES % (AUTO) 10 % (12-44); MEAN CORPUSCULAR HEMOGLOBIN 30 PG (25-34); MEAN CORPUSCULAR HGB CONC 32 G/DL (32-36); MEAN CORPUSCULAR VOLUME 93 FL (80-99); MEAN PLATELET VOLUME 9.7 FL (7.4-10.4); MONOCYTES # (AUTO) 0.9 X 10^3 (0.0-1.0); MONOCYTES % (AUTO) 8 % (0-12); NEUTROPHILS # (AUTO) 9.6 X 10^3 (1.8-7.8); NEUTROPHILS % (AUTO) 80 % (42-75); PLATELET COUNT 174 10^3/uL (130-400); RED BLOOD COUNT 3.32 10^6/uL (4.35-5.85); RED CELL DISTRIBUTION WIDTH 15.7 % (10.0-14.5)
[2016-10-21 04:44] LABS: INR 1.5 (0.8-1.4); PROTHROMBIN TIME PATIENT 18.2 SEC (12.2-14.7)
[2016-10-21 04:52] LABS: ALANINE AMINOTRANSFERASE 12 U/L (0-55); ALBUMIN 2.6 GM/DL (3.2-4.5); ANION GAP 9 MMOL/L (5-14); ASPARTATE AMINO TRANSFERASE 8 U/L (5-34); BILIRUBIN,TOTAL 0.3 MG/DL (0.1-1.0); BLOOD UREA NITROGEN 6 MG/DL (7-18); BUN/CREATININE RATIO 12; CALCIUM 7.2 MG/DL (8.5-10.1); CARBON DIOXIDE 16 MMOL/L (21-32); CHLORIDE 114 MMOL/L (98-107); CREATININE SERUM 0.51 MG/DL (0.60-1.30); GFR ESTIMATED > 60; GLUCOSE 86 MG/DL (70-105); MAGNESIUM 1.7 MG/DL (1.8-2.4); PHOSPHORUS 1.2 MG/DL (2.3-4.7); POTASSIUM 3.2 MMOL/L (3.6-5.0); SODIUM 139 MMOL/L (135-145); TOTAL PROTEIN 4.6 GM/DL (6.4-8.2)
[2016-10-21] MEDS: KCL 20 MEQ TAB (K-DUR) PO SCH (05:54)
[2016-10-21] MEDS: OMEGA 3 (FISH OIL) 1000 MG CAP PO SCH (06:26)
[2016-10-21] MEDS: metroNIDAZOLE 500MG/100ML IVPB 100 ML IV SCH ×3 (06:26→22:07)
[2016-10-21] MEDS: LACTOBACILLUS Acidoph/Bulgar (LACTINEX/FLORANEX) TAB PO SCH ×3 (06:26→17:27)
[2016-10-21] MEDS: POTASSIUM CL 10MEQ/50ML IVPB 50 ML IV SCH ×5 (06:32→10:38)
[2016-10-21] MEDS: MAGNESIUM 1 GM/100 ML IVPB 100 ML IV SCH ×3 (06:32→08:58)
--- NOTE | 2016-10-21 07:05 | Pulmonary Progress Note ---
Subjective Time Seen by Provider: 07:05 Subjective/Events-last exam Denies abdominal pain and SOB. Exam Exam Vital Signs Date Time Temp Pulse Resp B/P (MAP) Pulse Ox O2 Delivery O2 Flow Rate FiO2 10/21/16 03:26 98.0 74 18 135/83 100 Room Air 10/21/16 01:00 77 10/21/16 00:00 Room Air 10/21/16 00:00 97.6 69 17 122/71 100 Room Air 10/20/16 20:00 97.8 10/20/16 20:00 Room Air 10/20/16 20:00 74 17 140/76 100 Room Air 10/20/16 19:00 73 10/20/16 17:00 70 14 123/73 100 Room Air 10/20/16 16:00 69 15 112/74 100 Room Air 10/20/16 16:00 97.6 10/20/16 16:00 Room Air 10/20/16 15:00 68 15 119/75 100 Room Air 10/20/16 14:00 71 6 102/91 97 Room Air 10/20/16 13:00 72 10/20/16 13:00 70 15 117/73 100 Room Air 10/20/16 12:00 70 15 130/80 99 Room Air 10/20/16 12:00 97.0 10/20/16 12:00 Room Air 10/20/16 11:00 73 18 100 Room Air 10/20/16 10:00 73 16 106/65 100 Room Air 10/20/16 09:00 74 16 108/65 100 Room Air 10/20/16 08:00 97.4 10/20/16 08:00 Room Air 10/20/16 08:00 72 133/75 100 Room Air General Appearance: WD/WN HEENT: PERRL/EOMI Neck: Full Range of Motion, Normal Inspection Respiratory: Lungs Clear, No Accessory Muscle Use, No Respiratory Distress Cardiovascular: Regular Rate, Rhythm, No JVD, No Murmur, Tachycardia Gastrointestinal: non tender, soft, distended, No guarding, No rebound, No tenderness Extremity: Normal Capillary Refill, Normal Inspection, Non Tender Neurologic/Psychiatric: Alert, No No Motor/Sensory Deficits Skin: Normal Color, Warm/Dry Lymphatic: No Adenopathy Results Lab Laboratory Tests 10/19/16 08:10 10/19/16 22:46 10/20/16 04:32 10/21/16 04:19 Assessment/Plan Assessment/Plan -Severe Sepsis -Pt is on severe sepsis protocol -Hameed cultures pending CDiff colitis - IV flagyl -Continue PO D/C /IV vanco Metabolic lactic acidosis -IVF -Monitor Hx of seizures Poor historian/dementia 232 Clinical Quality Measures DVT/VTE Risk/Contraindication: Risk Factor Score Per Nursin RFS Level Per Nursing on Admit: 4+=Very High GRISELDA RAMIREZ DO Oct 21, 2016 07:05
--- NOTE | 2016-10-21 07:14 | Diagnostic Imaging Report ---
INDICATION: Fever. COMPARISON: 10/20/2016 FINDINGS: Single frontal radiographic view of the chest was obtained and demonstrates interval decreased inspiratory volumes. There is increased airspace disease within the right upper lung. Some minimal patchy airspace disease is also noted within the medial left upper lung. Small right effusion cannot be excluded. There is no large effusion on the left. No pneumothorax is seen on either side. Cardiac silhouette is prominent. Pulmonary vasculature is within normal limits. IMPRESSION: 1. Increased airspace disease in the right upper lobe. Findings could be on the basis of atelectasis and related to shallow inspiratory volumes, although developing infiltrate cannot be excluded. Followup is recommended. 2. Persistent subtle patchy infiltrate type opacity within the left upper lung. 3. Suspect small effusion. 3. Cardiomegaly. Dictated by: Dictated on workstation # [id number]
[2016-10-21 08:00] LABS: CALCIUM PH 7.31
--- NOTE | 2016-10-21 08:49 | Progress Note-Cardiology ---
Cardiology SOAP Progress Note Subjective: In bed. States he feels better today. No c/o CP, dyspnea or palpitations. Objective: I&O/Vital Signs Vital Sign - Last 12Hours 10/21/16 10/21/16 10/21/16 10/21/16 07:16 08:00 09:05 12:52 Temp 97.3 97.1 Pulse 79 73 Resp 18 B/P (MAP) 136/66 Pulse Ox 94 O2 Delivery Room Air Room Air Intake and Output 10/22/16 00:00 Intake Total 400 ml Output Total 425 ml Balance -25 ml Weight (Pounds): 233 Weight (Ounces): 1.0 Weight (Calculated Kilograms): 105.256724 Constitutional: appears stated age, No apparent distress, well-developed, well- nourished Respiratory: No accessory muscle use, other (good bilat air entry; diminished at the bases) Cardiovascular: regular rate-rhythm, S1 and S2, systolic murmur (faint MALCOLM at card base) Gastrointestional: No tender, No guarding, No rebound, audible bowel sounds Extremities: No clubbing, No cyanosis, No significant edema Neurologic/Psychiatric: grossly intact, power is 5/5 both on sides Skin: No rash on exposed areas, No ulcerations on exposed areas Results/Procedures: Labs Laboratory Tests 10/21/16 04:19: White Blood Count 12.0H, Red Blood Count 3.32L, Hemoglobin 9.8L, Hematocrit 31L , Mean Corpuscular Volume 93, Mean Corpuscular Hemoglobin 30, Mean Corpuscular Hemoglobin Concent 32, Red Cell Distribution Width 15.7H, Platelet Count 174, Mean Platelet Volume 9.7, Neutrophils (%) (Auto) 80H, Lymphocytes (%) (Auto) 10L , Monocytes (%) (Auto) 8, Eosinophils (%) (Auto) 2, Basophils (%) (Auto) 0, Neutrophils # (Auto) 9.6H, Lymphocytes # (Auto) 1.2, Monocytes # (Auto) 0.9, Eosinophils # (Auto) 0.2, Basophils # (Auto) 0.0, Prothrombin Time 18.2H, INR Comment 1.5H, Activated Partial Thromboplast Time 37H, Sodium Level 139, Potassium Level 3.2L, Chloride Level 114H, Carbon Dioxide Level 16L, Anion Gap 9 , Blood Urea Nitrogen 6L, Creatinine 0.51L, Estimat Glomerular Filtration Rate > 60, BUN/Creatinine Ratio 12, Glucose Level 86, Calcium Level 7.2L, Phosphorus Level 1.2L, Magnesium Level 1.7L, Total Bilirubin 0.3, Aspartate Amino Transf ( AST/SGOT) 8, Alanine Aminotransferase (ALT/SGPT) 12, Alkaline Phosphatase 66, Total Protein 4.6L, Albumin 2.6L 10/21/16 12:56: Glucometer 85 Microbiology 10/18/16 Blood Culture - Preliminary, Resulted No growth 10/18/16 C. difficile GDH Antigen & Toxins - Final, Complete 10/18/16 MRSA Screen - Final, Complete MRSA not isolated 10/18/16 Urine Culture - Final, Complete Pseudomonas Aeruginosa A/P: Assessment: Septic shock, managed by Med and ICU services Tachycardia at presentation: sinus tach vs atrial flutter (treated with iv amidoarone) Echo on 10/21/16: LVEF 60-65%, grade I diastolic dysfunction, PASP approx 30 mmHg UTI, yang cultures pending, patient is on Zosyn and oral vancomycin due to C. difficile colitis. C. difficile colitis, managed by Dr. Ham. Metabolic acidosis and lactic acidosis, being managed by the Med and ICU services Hypokalemia, being corrected Dementia, by history History of seizure disorder Plan: Monitor labs Replace electrolytes Monitor card rhythm Echo to eval LVEF and wall motion Physician Assessment Physician Assessment Confused Lungs: good bilat air entry, but diminished at the bases Cor: reg Abd: distended Ext: no c/c; mild edema A&R * As documented in our note above that I updated (italics) and as noted below * Monitor labs * I spoke with his and answered CV-related questions ERNIE JAY [employer] Oct 21, 2016 08:49 JONA RAGSDALE MD [facility] CCDS Oct 21, 2016 17:13
[2016-10-21] MEDS: QUEtiapine 25 MG (SEROquel) TAB IMMEDIATE RELEASE PO SCH ×2 (08:59→20:34)
[2016-10-21] MEDS: ASPIRIN 81 MG CHEW (CHILDREN'S ASA) PO SCH (08:59)
[2016-10-21] MEDS: LEVETIRACETAM 500 MG (KEPPRA) TAB PO SCH ×2 (09:04→20:35)
[2016-10-21] MEDS: SERTRALINE 100 MG (ZOLOFT) TAB PO SCH (09:05)
[2016-10-21] MEDS: FAMOTIDINE 20 MG (PEPCID) TABLET PO SCH ×2 (09:05→20:35)
[2016-10-21] MEDS: meTOprolol TARTRATE 25 MG (LOPRESSOR) TABLET PO SCH ×2 (09:11→20:35)
[2016-10-21] MEDS: MONTELUKAST 10 MG (SINGULAIR) TAB PO SCH (09:47)
[2016-10-21] MEDS: PHENYTOIN 100 MG (DILANTIN) CAP PO SCH ×2 (09:47→20:35)
[2016-10-21 12:52] VITALS: BP 136/66
[2016-10-21 16:00] VITALS: BP 149/80
--- NOTE | 2016-10-21 16:25 | Progress Note ---
Subjective Date Seen by Provider: Oct 21, 2016 Time Seen by Provider: 16:20 Subjective/Events-last exam patient transferred to 4th floor. No new complaints. Wbc slightly up today. Coags increasing. Diarrhea through flex tube. Esteban catheter. Pseudomona in urine culture. Objective Exam Vital Signs Date Time Temp Pulse Resp B/P (MAP) Pulse Ox O2 Delivery O2 Flow Rate FiO2 10/21/16 12:52 97.1 73 18 136/66 94 Room Air 10/21/16 09:05 Room Air 10/21/16 08:00 97.3 10/21/16 07:16 79 10/21/16 03:26 98.0 74 18 135/83 100 Room Air 10/21/16 01:00 77 10/21/16 00:00 Room Air 10/21/16 00:00 97.6 69 17 122/71 100 Room Air 10/20/16 20:00 97.8 10/20/16 20:00 Room Air 10/20/16 20:00 74 17 140/76 100 Room Air 10/20/16 19:00 73 10/20/16 17:00 70 14 123/73 100 Room Air I & O 10/22/16 07:00 Intake Total 1800 ml Output Total 425 ml Balance 1375 ml Capillary Refill : General Appearance: WD/WN HEENT: PERRL/EOMI Neck: Full Range of Motion, Normal Inspection Respiratory: No Accessory Muscle Use, No Respiratory Distress Cardiovascular: Regular Rate, Rhythm, No JVD, No Murmur, Tachycardia Gastrointestinal: non tender, soft, distended, No guarding, No rebound, No tenderness Extremity: Normal Capillary Refill, Normal Inspection, Non Tender Neurologic/Psychiatric: Alert, No No Motor/Sensory Deficits Skin: Normal Color, Warm/Dry Lymphatic: No Adenopathy Results Lab Laboratory Tests 10/21/16 04:19: White Blood Count 12.0H, Red Blood Count 3.32L, Hemoglobin 9.8L, Hematocrit 31L , Mean Corpuscular Volume 93, Mean Corpuscular Hemoglobin 30, Mean Corpuscular Hemoglobin Concent 32, Red Cell Distribution Width 15.7H, Platelet Count 174, Mean Platelet Volume 9.7, Neutrophils (%) (Auto) 80H, Lymphocytes (%) (Auto) 10L , Monocytes (%) (Auto) 8, Eosinophils (%) (Auto) 2, Basophils (%) (Auto) 0, Neutrophils # (Auto) 9.6H, Lymphocytes # (Auto) 1.2, Monocytes # (Auto) 0.9, Eosinophils # (Auto) 0.2, Basophils # (Auto) 0.0, Prothrombin Time 18.2H, INR Comment 1.5H, Activated Partial Thromboplast Time 37H, Sodium Level 139, Potassium Level 3.2L, Chloride Level 114H, Carbon Dioxide Level 16L, Anion Gap 9 , Blood Urea Nitrogen 6L, Creatinine 0.51L, Estimat Glomerular Filtration Rate > 60, BUN/Creatinine Ratio 12, Glucose Level 86, Calcium Level 7.2L, Phosphorus Level 1.2L, Magnesium Level 1.7L, Total Bilirubin 0.3, Aspartate Amino Transf ( AST/SGOT) 8, Alanine Aminotransferase (ALT/SGPT) 12, Alkaline Phosphatase 66, Total Protein 4.6L, Albumin 2.6L 10/21/16 12:56: Glucometer 85 Microbiology 10/18/16 Blood Culture - Preliminary, Resulted No growth 10/18/16 C. difficile GDH Antigen & Toxins - Final, Complete 10/18/16 MRSA Screen - Final, Complete MRSA not isolated 10/18/16 Urine Culture - Final, Complete Pseudomonas Aeruginosa Assessment/Plan Assessment/Plan Assessment/Plan C. difficile colitis, sepsis, dementia, uti -pseudomonas Patient white count continuing to increased. discussed with dr tabor -will add vanc/zosyn due to pseudomonas Abdomen still with some slight distention but overall not worsening. We will continue to monitor. If wbc not improving tomorrow and no improvement will consider ct scan abd/pelvis but at this time i don't feel it has changed. No surgical intervention at this time. Continue with medical management. Clinical Quality Measures DVT/VTE Risk/Contraindication: Risk Factor Score Per Nursin RFS Level Per Nursing on Admit: 4+=Very High EULALIA NOONAN DO Oct 21, 2016 16:25
[2016-10-21] MEDS ORDERED: VANCOMYCIN INJECTION 0.1 MG in NS (IVPB) 250 ML IV SCH (16:30)
[2016-10-21] MEDS ORDERED: VANCOMYCIN 2000 MG/NS 500 ML IVPB IV NR ×2 (17:00)
[2016-10-21] MEDS: ALPRAZolam 0.25 MG (XANAX) TAB PO PRN (17:27)
[2016-10-21] MEDS: ALFUZOSIN HCL 10 MG TAB (UROXATRAL) PO SCH (17:27)
[2016-10-21] MEDS: ENOXAPARIN 40 MG/0.4 ML (LOVENOX) SYR SC SCH (17:31)
[2016-10-21 19:49] VITALS: BP 161/81
--- NOTE | 2016-10-21 22:50 | Progress Note (SOAP) ---
Subjective Subjective Date Seen by Provider: Oct 21, 2016 Time Seen by Provider: 08:05 76 yo M admitted/transferred from [facility]- for reoccurence of C.diff. Pt more alert and talkative this AM; but quickly became angry as the nurse was not holding his straw "correctly" for him to drink. He wants to be waited on and fed by nursing staff ( On previous admits I have seen his feed him). Review of Systems ROS Unable to Obtain: denies fever General: No Chills, Fatigue, Appetite HEENT: No Head Aches Pulmonary: No Dyspnea, Cough Cardiovascular: No: Chest Pain, Palpitations Gastrointestinal: Abdominal Pain, Diarrhea, No: Nausea, Vomiting, Constipation Genitourinary: No Dysuria, Frequency, Incontinence Musculoskeletal: No: neck pain, shoulder pain Neurological: Weakness Objective Exam Vital Signs Vital Signs Date Time Temp Pulse Resp B/P (MAP) Pulse Ox O2 Delivery O2 Flow Rate FiO2 10/21/16 21:20 Room Air 10/21/16 19:49 96.8 72 19 161/81 95 Room Air 10/21/16 16:00 96.9 70 19 149/80 94 Room Air 10/21/16 12:52 97.1 73 18 136/66 94 Room Air 10/21/16 09:05 Room Air 10/21/16 08:00 97.3 10/21/16 07:16 79 10/21/16 03:26 98.0 74 18 135/83 100 Room Air 10/21/16 01:00 77 10/21/16 00:00 Room Air 10/21/16 00:00 97.6 69 17 122/71 100 Room Air I & O 10/22/16 07:00 Intake Total 1900 ml Output Total 725 ml Balance 1175 ml General Appearance: WD/WN Eyes: Bilateral Eye Normal Inspection, Bilateral Eye PERRL, Bilateral Eye EOMI HEENT: PERRL/EOMI Neck: Full Range of Motion, Normal Inspection Respiratory: No Accessory Muscle Use, No Respiratory Distress Cardiovascular: Regular Rate, Rhythm, No Murmur, Tachycardia Gastrointestinal: Abnormal Bowel Sounds, Distended Rectal: Deferred, Other (rectal tube) Back: Normal Inspection Extremity: Normal Capillary Refill, Normal Inspection, Non Tender Neurologic/Psychiatric: Alert, No No Motor/Sensory Deficits Skin: Normal Color, Warm/Dry Lymphatic: No Adenopathy Results Lab Laboratory Tests 10/21/16 04:19: White Blood Count 12.0H, Red Blood Count 3.32L, Hemoglobin 9.8L, Hematocrit 31L , Mean Corpuscular Volume 93, Mean Corpuscular Hemoglobin 30, Mean Corpuscular Hemoglobin Concent 32, Red Cell Distribution Width 15.7H, Platelet Count 174, Mean Platelet Volume 9.7, Neutrophils (%) (Auto) 80H, Lymphocytes (%) (Auto) 10L , Monocytes (%) (Auto) 8, Eosinophils (%) (Auto) 2, Basophils (%) (Auto) 0, Neutrophils # (Auto) 9.6H, Lymphocytes # (Auto) 1.2, Monocytes # (Auto) 0.9, Eosinophils # (Auto) 0.2, Basophils # (Auto) 0.0, Prothrombin Time 18.2H, INR Comment 1.5H, Activated Partial Thromboplast Time 37H, Sodium Level 139, Potassium Level 3.2L, Chloride Level 114H, Carbon Dioxide Level 16L, Anion Gap 9 , Blood Urea Nitrogen 6L, Creatinine 0.51L, Estimat Glomerular Filtration Rate > 60, BUN/Creatinine Ratio 12, Glucose Level 86, Calcium Level 7.2L, Phosphorus Level 1.2L, Magnesium Level 1.7L, Total Bilirubin 0.3, Aspartate Amino Transf ( AST/SGOT) 8, Alanine Aminotransferase (ALT/SGPT) 12, Alkaline Phosphatase 66, Total Protein 4.6L, Albumin 2.6L 10/21/16 12:56: Glucometer 85 10/21/16 18:04: Glucometer 109 Microbiology 10/18/16 Blood Culture - Preliminary, Resulted No growth 10/18/16 C. difficile GDH Antigen & Toxins - Final, Complete 10/18/16 MRSA Screen - Final, Complete MRSA not isolated 10/18/16 Urine Culture - Final, Complete Pseudomonas Aeruginosa Assessment/Plan Assessment/Plan Assessment/Plan 76 yo M Severe Sepsis due to reoccurence of c.diff colitis, UTI- continue IV metronidazole, po vancomycin- IVF- apap for fever urine culture + pseudomonas c.diff colitis- continue metronidazole , vanc- rectal tube in due to output. urinary retention- catheter; Dr. Ledezma says he may try a minimal invasive procedure in the future- to see if he can help with the retention but we both feel there is a cognitive component that surgery/medicine will not help. Frequent falls and weakness- Patient to work with PT once stable. h/o seizures- continue dilantin 100mg, keppra 500mg- COPD- stable- on 2L oxygen usually during sleeping- no new issues. hypokalemia- due to losses- replacing hypomagnesemia - replacing prn Dementia with behavioral disturbance- progressing. Depression with behavior/verbal disturbance- will continue to reevaluate medication management. Also the fact that he can not see plays a role in his mood. DVT ppx: lovenox. Dispo: prognosis improving - but long term care phlebotomist prognosis due to co-morbidities not great- hospice? Problems: Clinical Quality Measures DVT/VTE Risk/Contraindication: Risk Factor Score Per Nursin RFS Level Per Nursing on Admit: 4+=Very High BRYANT WAGNER MD Oct 21, 2016 22:50
[2016-10-22] MEDS: DIVALPROX SPRINKLE 125 MG (DEPAKOTE) CAP PO SCH ×4 (00:01→17:29)
[2016-10-22] MEDS: NS IV 1000 ML 1,000 ML IV SCH (00:02)
[2016-10-22] MEDS: VANCOMYCIN ORAL 250 MG/5 ML 60 ML PO SCH ×8 (00:02→17:33)
[2016-10-22 00:51] VITALS: BP 156/78
[2016-10-22 04:00] VITALS: BP 148/82
[2016-10-22] MEDS ORDERED: VANCOMYCIN 1000 MG/VIAL ONE (04:13)
[2016-10-22] MEDS ORDERED: VANCOMYCIN 500 MG/VIAL IV ONE (04:13)
[2016-10-22] MEDS ORDERED: NS (IVPB) 250 ML ONE (04:14)
[2016-10-22 04:49] LABS: BASOPHILS % (AUTO) 0 % (0-10); EOSINOPHILS # (AUTO) 0.3 10^3/uL (0.0-0.3); EOSINOPHILS % (AUTO) 3 % (0-10); LYMPHOCYTES # (AUTO) 1.3 X 10^3 (1.0-4.0); LYMPHOCYTES % (AUTO) 12 % (12-44); MEAN CORPUSCULAR HEMOGLOBIN 30 PG (25-34); MEAN CORPUSCULAR HGB CONC 33 G/DL (32-36); MEAN CORPUSCULAR VOLUME 90 FL (80-99); MEAN PLATELET VOLUME 9.7 FL (7.4-10.4); MONOCYTES # (AUTO) 0.8 X 10^3 (0.0-1.0); MONOCYTES % (AUTO) 8 % (0-12); NEUTROPHILS # (AUTO) 7.8 X 10^3 (1.8-7.8); NEUTROPHILS % (AUTO) 77 % (42-75); PLATELET COUNT 212 10^3/uL (130-400); RED BLOOD COUNT 3.51 10^6/uL (4.35-5.85); RED CELL DISTRIBUTION WIDTH 15.3 % (10.0-14.5); WHITE BLOOD COUNT 10.2 10^3/uL (4.3-11.0)
[2016-10-22] MEDS ORDERED: VANCOMYCIN 1250 MG/NS 250 ML IVPB IV SCH ×2 (05:00)
[2016-10-22] MEDS: metroNIDAZOLE 500MG/100ML IVPB 100 ML IV SCH ×3 (05:00→22:19)
[2016-10-22] MEDS: LACTOBACILLUS Acidoph/Bulgar (LACTINEX/FLORANEX) TAB PO SCH ×3 (05:01→16:06)
[2016-10-22] MEDS: OMEGA 3 (FISH OIL) 1000 MG CAP PO SCH (05:10)
[2016-10-22 05:11] LABS: ANION GAP 6 MMOL/L (5-14); BLOOD UREA NITROGEN 2 MG/DL (7-18); BUN/CREATININE RATIO 4; CARBON DIOXIDE 22 MMOL/L (21-32); CHLORIDE 111 MMOL/L (98-107); CREATININE SERUM 0.48 MG/DL (0.60-1.30); GFR ESTIMATED > 60; GLUCOSE 87 MG/DL (70-105); MAGNESIUM 1.6 MG/DL (1.8-2.4); POTASSIUM 2.7 MMOL/L (3.6-5.0); SODIUM 139 MMOL/L (135-145)
[2016-10-22] MEDS: ALPRAZolam 0.25 MG (XANAX) TAB PO PRN ×2 (06:15→16:06)
--- NOTE | 2016-10-22 07:25 | Pulmonary Progress Note ---
Subjective Time Seen by Provider: 07:25 Subjective/Events-last exam No complications noted. Exam Exam Vital Signs Date Time Temp Pulse Resp B/P (MAP) Pulse Ox O2 Delivery O2 Flow Rate FiO2 10/22/16 04:00 97.4 81 18 148/82 95 Room Air 10/22/16 00:51 97.0 72 19 156/78 94 Room Air 10/21/16 21:20 Room Air 10/21/16 19:49 96.8 72 19 161/81 95 Room Air 10/21/16 16:00 96.9 70 19 149/80 94 Room Air 10/21/16 12:52 97.1 73 18 136/66 94 Room Air 10/21/16 09:05 Room Air 10/21/16 08:00 97.3 General Appearance: WD/WN HEENT: PERRL/EOMI Neck: Full Range of Motion, Normal Inspection Respiratory: Lungs Clear, No Accessory Muscle Use, No Respiratory Distress Cardiovascular: Regular Rate, Rhythm, No JVD, No Murmur, Tachycardia Gastrointestinal: non tender, soft, distended, No guarding, No rebound, No tenderness Extremity: Normal Capillary Refill, Normal Inspection, Non Tender Neurologic/Psychiatric: Alert, No No Motor/Sensory Deficits Skin: Normal Color, Warm/Dry Lymphatic: No Adenopathy Results Lab Laboratory Tests 10/21/16 04:19 10/22/16 04:37 Assessment/Plan Assessment/Plan -Severe Sepsis -- secondary to CDiff -- doubt PNA -Pt is on severe sepsis protocol -Hameed cultures pending -Yesterday pt had worsening leukocytosis vanco IV was added. Today leukocytosis is normal. -- This is a lab error - D/C IV Vanco Pulmonary infiltrates secondary to atelectasis possible pulmonary edema - doubt pneumonia -Check BNP -IS increase activity as tolerated CDiff colitis - IV flagyl -Continue PO D/C /IV vanco Metabolic lactic acidosis -IVF -Monitor Hx of seizures Poor historian/dementia 232 Clinical Quality Measures DVT/VTE Risk/Contraindication: Risk Factor Score Per Nursin RFS Level Per Nursing on Admit: 4+=Very High GRISELDA RAMIREZ DO Oct 22, 2016 07:25
[2016-10-22 08:00] VITALS: BP 165/79
[2016-10-22] MEDS: FAMOTIDINE 20 MG (PEPCID) TABLET PO SCH ×2 (08:18→21:20)
[2016-10-22] MEDS: meTOprolol TARTRATE 25 MG (LOPRESSOR) TABLET PO SCH ×2 (08:18→21:20)
[2016-10-22] MEDS: LEVETIRACETAM 500 MG (KEPPRA) TAB PO SCH ×2 (08:18→21:20)
[2016-10-22] MEDS: ASPIRIN 81 MG CHEW (CHILDREN'S ASA) PO SCH (08:18)
[2016-10-22] MEDS: MONTELUKAST 10 MG (SINGULAIR) TAB PO SCH (08:19)
[2016-10-22] MEDS: QUEtiapine 25 MG (SEROquel) TAB IMMEDIATE RELEASE PO SCH ×2 (08:19→21:20)
[2016-10-22] MEDS: PHENYTOIN 100 MG (DILANTIN) CAP PO SCH ×2 (08:19→21:20)
[2016-10-22] MEDS: SERTRALINE 100 MG (ZOLOFT) TAB PO SCH (08:19)
--- NOTE | 2016-10-22 08:39 | Progress Note (SOAP) ---
Subjective Subjective Date Seen by Provider: Oct 22, 2016 Time Seen by Provider: 09:00 76 yo M admitted/transferred from [facility]- for reoccurence of C.diff. Pt reports he is not doing alright this AM because he is tired. He didn't want to talk about much else. Blood pressure remaining elevated- resuming his losartan 100mg Review of Systems General: No Chills, Fatigue, Appetite HEENT: No Head Aches Pulmonary: No Dyspnea, Cough Cardiovascular: No: Chest Pain, Palpitations Gastrointestinal: Abdominal Pain, Diarrhea, No: Nausea, Vomiting, Constipation Genitourinary: No Dysuria, Frequency, Incontinence Musculoskeletal: No: neck pain, shoulder pain Neurological: Weakness No changes compared to yesterday Objective Exam Vital Signs Vital Signs Date Time Temp Pulse Resp B/P (MAP) Pulse Ox O2 Delivery O2 Flow Rate FiO2 10/22/16 08:00 96.8 68 22 165/79 94 Room Air 10/22/16 04:00 97.4 81 18 148/82 95 Room Air 10/22/16 00:51 97.0 72 19 156/78 94 Room Air 10/21/16 21:20 Room Air 10/21/16 19:49 96.8 72 19 161/81 95 Room Air 10/21/16 16:00 96.9 70 19 149/80 94 Room Air 10/21/16 12:52 97.1 73 18 136/66 94 Room Air 10/21/16 09:05 Room Air General Appearance: WD/WN Eyes: Bilateral Eye Normal Inspection, Bilateral Eye PERRL, Bilateral Eye EOMI HEENT: PERRL/EOMI Neck: Full Range of Motion, Normal Inspection Respiratory: Lungs Clear, No Accessory Muscle Use, No Respiratory Distress Cardiovascular: Regular Rate, Rhythm, No JVD, No Murmur, Tachycardia Gastrointestinal: Soft, Abnormal Bowel Sounds, Distended Rectal: Deferred, Other (rectal tube) Back: Normal Inspection Extremity: Normal Capillary Refill, Normal Inspection, Non Tender Neurologic/Psychiatric: Alert, No No Motor/Sensory Deficits Skin: Normal Color, Warm/Dry Lymphatic: No Adenopathy Results Lab Laboratory Tests 10/21/16 12:56: Glucometer 85 10/21/16 18:04: Glucometer 109 10/22/16 04:37: White Blood Count 10.2, Red Blood Count 3.51L, Hemoglobin 10.4L, Hematocrit 32L , Mean Corpuscular Volume 90, Mean Corpuscular Hemoglobin 30, Mean Corpuscular Hemoglobin Concent 33, Red Cell Distribution Width 15.3H, Platelet Count 212, Mean Platelet Volume 9.7, Neutrophils (%) (Auto) 77H, Lymphocytes (%) (Auto) 12 , Monocytes (%) (Auto) 8, Eosinophils (%) (Auto) 3, Basophils (%) (Auto) 0, Neutrophils # (Auto) 7.8, Lymphocytes # (Auto) 1.3, Monocytes # (Auto) 0.8, Eosinophils # (Auto) 0.3, Basophils # (Auto) 0.0, Sodium Level 139, Potassium Level 2.7L, Chloride Level 111H, Carbon Dioxide Level 22, Anion Gap 6, Blood Urea Nitrogen 2L, Creatinine 0.48L, Estimat Glomerular Filtration Rate > 60, BUN /Creatinine Ratio 4, Glucose Level 87, Calcium Level 7.0L, Magnesium Level 1.6L Microbiology 10/18/16 Blood Culture - Preliminary, Resulted No growth 10/18/16 C. difficile GDH Antigen & Toxins - Final, Complete 10/18/16 MRSA Screen - Final, Complete MRSA not isolated 10/18/16 Urine Culture - Final, Complete Pseudomonas Aeruginosa Assessment/Plan Assessment/Plan Assessment/Plan 76 yo M c.diff colitis- continue metronidazole , PO vanc- rectal tube in due to output - and decrease skin breakdown. urinary retention- catheter; Dr. Ledezma says he may try a minimally invasive procedure in the future- to see if he can help with the retention but we both feel there is a cognitive component that surgery/medicine will not help. Frequent falls and weakness- Patient to work with PT h/o seizures- continue dilantin 100mg, keppra 500mg- COPD- stable- on 2L oxygen prn- no new issues. hypokalemia- due to losses- replacing - added KCl to maintenance fluids hypomagnesemia - replacing prn Dementia with behavioral disturbance- verbal aggression progressing. Depression with behavior/verbal disturbance- will continue to reevaluate medication management. Also the fact that he can not see plays a role in his mood. HTN- resumed his losartan 10/22/16 DVT ppx: lovenox. Dispo: WBC back down to normal prognosis improving - but keno terminal operator prognosis due to co-morbidities not great- [facility] did not get much accomplished so plan to transfer back there when stable enough. Problems: Clinical Quality Measures DVT/VTE Risk/Contraindication: Risk Factor Score Per Nursin RFS Level Per Nursing on Admit: 4+=Very High BRYANT WAGNER MD Oct 22, 2016 08:38
--- NOTE | 2016-10-22 08:49 | Diagnostic Imaging Report ---
EXAMINATION: Portable upright radiograph of the chest. INDICATION: Fever. FINDINGS: There is a right PICC line with the tip at the SVC level seen. When compared to 10/21/2016, there is improvement in the lung expansion as well as in the bilateral perihilar and basilar infiltrates. The heart size is mildly enlarged. No effusion or pneumothorax. The mediastinum and dorian appear unremarkable. IMPRESSION: Improvement in pulmonary expansion and resolving perihilar and right basilar infiltrates. Dictated by: Dictated on workstation # [id number]
[2016-10-22] MEDS ORDERED: LOSARTAN 50 MG (COZAAR) TAB PO SCH (09:00)
[2016-10-22] MEDS: KCL 10 MEQ TAB (MICRO K) PO SCH (09:12)
[2016-10-22] MEDS: MAGNESIUM 1 GM/100 ML IVPB 100 ML IV SCH ×3 (09:12→11:15)
[2016-10-22] MEDS: POTASSIUM CL 10MEQ/50ML IVPB 50 ML IV SCH ×4 (09:12→12:15)
[2016-10-22] MEDS: NS W/KCL 40 MEQ/L 1,000 ML IV SCH ×2 (09:12→21:22)
--- NOTE | 2016-10-22 11:08 | Physical Therapy Evaluation ---
PT Evaluation-General Medical Diagnosis Admission Date Oct 18, 2016 at 21:32 Medical Diagnosis: sepsis Onset Date: Oct 18, 2016 Therapy Diagnosis Therapy Diagnosis: debility Height/Weight Height (Feet): 5 Height (Inches): 10.00 Weight (Pounds): 233 Weight (Ounces): 1.0 Precautions Precautions/Isolations: Seizure, Fall Prevention, Contact/Enteric Isolation Referral Physician: Oliver Mckeon Reason for Referral: Evaluation/Treatment Medical History Pertinent Medical History: CAD, COPD, CVA, Dementia, HTN, Parkinson's Additional Medical History recurrent Cdiff Current History transfer from [facility] rectal tube (C diff) confusion agitation Reviewed History: Yes Social History Home: [facility] Prior/Core [facility] Prior Level of Function Functional [place] Measure 0=Not Assessed/NA 4=Minimal Assistance 1=Total Assistance 5=Supervision or Setup 2=Maximal Assistance 6=Modified [place] 3=Moderate Assistance 7=Complete [place] Bed Mobility: 5 Transfers (B,C,W/C) (FIM): 4 PT Evaluation-Current Subjective Patient is in bed and yelling "Get me out of here." Pain Numeric Pain Scale: 10-Worst Possible Pain Location: Soft Tissue Location Body Site: Sacrum Pain Description: Pressure Objective Patient Orientation: Confused Problem Solving: Poor Attachments: Owens Catheter, IV rectal tube ROM/Strength ROM Lower Extremities bilateral LE WNL Strenght Lower Extremities bilateral LE 4/5 grossly (unable to formally test due to confusion, agitation, etc.) Integumentary/Posture Integumentary refer to nursing notes Bowel Incontinence: Yes (rectal tube) Bladder Incontinence: Owens Cath Posture WFL Neuromuscular (Tone, Coordination, Reflexes) diminished coordination due to illness, Parkinson's, etc Sensory Vision: Blind Legally Hearing: Impaired Sensation Right Lower Extremit: Impaired Sensation Left Lower Extremity: Impaired Transfers Functional [place] Measure 0=Not Assessed/NA 4=Minimal Assistance 1=Total Assistance 5=Supervision or Setup 2=Maximal Assistance 6=Modified [place] 3=Moderate Assistance 7=Complete [place] Transfers (B, C, W/C) (FIM): 3 Scootin Rollin Supine to/from Sit: 4 Sit to/from Stand: 3 bed t/f WC(FIM only if WC use): 3 sit to stand is mod assist with side stepping and SPT to commode. Patient instructed he has a rectal tube and ownes catheter for urination and BM, however , patient demands to sit on a commode for a BM. Gait Anticipated Mode of Locomotion: Walk Balance Sitting Static: Normal Sitting Dynamic: Normal Standing Static: Fair Standing Dynamic: Fair Assessment/Needs 76 y.o. male, will benefit from short term skilled PT to address functional mobility. Patient is currently limited to in room activity due to precautions, rectal tube, etc. Rehab Potential: Poor Post Rehab Potential-Barriers: recurrent hospital admits, confusion, disease process PT Plan Problem List Problem List: Activity Tolerance, Functional Strength, Safety, Balance, Gait, Transfer, Bed Mobility Treatment/Plan Treatment Plan: Continue Plan of Care Treatment Plan: Bed Mobility, Education, Functional Activity Roberto, Functional Strength, Gait, Safety, Therapeutic Exercise, Transfers Treatment Duration: Oct 31, 2016 Frequency: 5 times per week Estimated Hrs Per Day: .25 hour per day Patient and/or Family Agrees t: Yes Discharge Recommendations Therapy D/C Recommendations: [facility] Placement Time/GCodes Time In: 1025 Time Out: 1050 Total Billed Treatment Time: 25 Total Billed Treatment 1 visit EVMod 25 min G Codes Necessary: No TANG RODRIGUEZ PT Oct 22, 2016 11:08
[2016-10-22] MEDS: RT-ALBUTEROL/IPRATROPIUM 3 ML (DUONEB) VIAL INH SCH ×3 (11:11→21:00)
--- NOTE | 2016-10-22 11:44 | Progress Note-Cardiology ---
Cardiology SOAP Progress Note Subjective: Drowsy and confused. Does not provide any meaningful history Objective: I&O/Vital Signs Vital Sign - Last 12Hours 10/22/16 10/22/16 10/22/16 10/22/16 00:51 04:00 08:00 09:00 Temp 97.0 97.4 96.8 Pulse 72 81 68 Resp 19 18 22 B/P (MAP) 156/78 148/82 165/79 Pulse Ox 94 95 94 O2 Delivery Room Air Room Air Room Air Room Air 10/22/16 11:11 Pulse Ox 94 O2 Delivery Room Air Weight (Pounds): 233 Weight (Ounces): 1.0 Weight (Calculated Kilograms): 105.898792 Constitutional: appears stated age, No apparent distress, well-developed, well- nourished Respiratory: No accessory muscle use, other (good bilat air entry; diminished at the bases) Cardiovascular: regular rate-rhythm, S1 and S2, systolic murmur (faint MALCOLM at card base) Gastrointestional: No tender, No guarding, No rebound, audible bowel sounds Extremities: No clubbing, No cyanosis, No significant edema Neurologic/Psychiatric: grossly intact, power is 5/5 both on sides Skin: No rash on exposed areas, No ulcerations on exposed areas Results/Procedures: Labs Laboratory Tests 10/21/16 12:56: Glucometer 85 10/21/16 18:04: Glucometer 109 10/22/16 04:37: White Blood Count 10.2, Red Blood Count 3.51L, Hemoglobin 10.4L, Hematocrit 32L , Mean Corpuscular Volume 90, Mean Corpuscular Hemoglobin 30, Mean Corpuscular Hemoglobin Concent 33, Red Cell Distribution Width 15.3H, Platelet Count 212, Mean Platelet Volume 9.7, Neutrophils (%) (Auto) 77H, Lymphocytes (%) (Auto) 12 , Monocytes (%) (Auto) 8, Eosinophils (%) (Auto) 3, Basophils (%) (Auto) 0, Neutrophils # (Auto) 7.8, Lymphocytes # (Auto) 1.3, Monocytes # (Auto) 0.8, Eosinophils # (Auto) 0.3, Basophils # (Auto) 0.0, Sodium Level 139, Potassium Level 2.7L, Chloride Level 111H, Carbon Dioxide Level 22, Anion Gap 6, Blood Urea Nitrogen 2L, Creatinine 0.48L, Estimat Glomerular Filtration Rate > 60, BUN /Creatinine Ratio 4, Glucose Level 87, Calcium Level 7.0L, Magnesium Level 1.6L Microbiology 10/18/16 Blood Culture - Preliminary, Resulted No growth 10/18/16 C. difficile GDH Antigen & Toxins - Final, Complete 10/18/16 MRSA Screen - Final, Complete MRSA not isolated 10/18/16 Urine Culture - Final, Complete Pseudomonas Aeruginosa Laboratory Tests 10/21/16 04:19 10/22/16 04:37 A/P: Assessment: Septic shock, managed by Med and ICU services Tachycardia at presentation: sinus tach vs atrial flutter (treated with iv amidoarone) Echo on 10/21/16: LVEF 60-65%, grade I diastolic dysfunction, PASP approx 30 mmHg UTI, due to pseudomona C. difficile colitis, managed by Dr. Ham. Metabolic acidosis and lactic acidosis, being managed by the Med and ICU services Hypokalemia, being corrected Dementia, by history History of seizure disorder Plan: Monitor labs Replace electrolytes JONA RAGSDALE MD FACP FAC CCDS Oct 22, 2016 11:44
[2016-10-22 12:00] VITALS: BP 102/70
[2016-10-22] MEDS ORDERED: TROUGH ORDER-PHARMACY XX NR (16:00)
[2016-10-22 16:14] VITALS: BP 144/72
[2016-10-22] MEDS: fentaNYL INJECTION 100 MCG/2 ML AMP IVP PRN ×3 (17:22→22:19)
[2016-10-22] MEDS: ALFUZOSIN HCL 10 MG TAB (UROXATRAL) PO SCH (17:28)
[2016-10-22] MEDS: ENOXAPARIN 40 MG/0.4 ML (LOVENOX) SYR SC SCH (17:31)
[2016-10-22] MEDS ORDERED: QUEtiapine 25 MG (SEROquel) TAB IMMEDIATE RELEASE PO SCH (18:45)
[2016-10-22 20:00] VITALS: BP 143/60
--- NOTE | 2016-10-22 21:55 | Progress Note ---
Subjective Date Seen by Provider: Oct 22, 2016 Time Seen by Provider: 09:51 Subjective/Events-last exam Patient states he is tired. He does not have any abdominal pain. He feels like he has a bathroom doesn't realize that he has the rectal tube and Esteban catheter. Patient has no family at bedside. He has no new complaints. Denies any nausea vomiting fever sweats chills shortness of breath or chest pain. White blood cell count down today. Objective Exam Vital Signs Date Time Temp Pulse Resp B/P (MAP) Pulse Ox O2 Delivery O2 Flow Rate FiO2 10/22/16 20:00 97.6 65 20 143/60 95 Room Air 10/22/16 16:14 96.8 67 21 144/72 95 Room Air 10/22/16 12:00 96.6 72 20 102/70 93 Room Air 10/22/16 11:11 94 Room Air 10/22/16 09:00 Room Air 10/22/16 08:00 96.8 68 22 165/79 94 Room Air 10/22/16 04:00 97.4 81 18 148/82 95 Room Air 10/22/16 00:51 97.0 72 19 156/78 94 Room Air I & O 10/23/16 07:00 Intake Total 2010 ml Output Total 2475 ml Balance -465 ml Capillary Refill : General Appearance: WD/WN HEENT: PERRL/EOMI Neck: Full Range of Motion, Normal Inspection Respiratory: Lungs Clear, No Accessory Muscle Use, No Respiratory Distress Cardiovascular: Regular Rate, Rhythm, No JVD, No Murmur, Tachycardia Gastrointestinal: non tender, soft, distended, No guarding, No rebound, No tenderness Extremity: Normal Capillary Refill, Normal Inspection, Non Tender Neurologic/Psychiatric: Alert, No No Motor/Sensory Deficits Skin: Normal Color, Warm/Dry Lymphatic: No Adenopathy Results Lab Laboratory Tests 10/22/16 04:37: White Blood Count 10.2, Red Blood Count 3.51L, Hemoglobin 10.4L, Hematocrit 32L , Mean Corpuscular Volume 90, Mean Corpuscular Hemoglobin 30, Mean Corpuscular Hemoglobin Concent 33, Red Cell Distribution Width 15.3H, Platelet Count 212, Mean Platelet Volume 9.7, Neutrophils (%) (Auto) 77H, Lymphocytes (%) (Auto) 12 , Monocytes (%) (Auto) 8, Eosinophils (%) (Auto) 3, Basophils (%) (Auto) 0, Neutrophils # (Auto) 7.8, Lymphocytes # (Auto) 1.3, Monocytes # (Auto) 0.8, Eosinophils # (Auto) 0.3, Basophils # (Auto) 0.0, Sodium Level 139, Potassium Level 2.7L, Chloride Level 111H, Carbon Dioxide Level 22, Anion Gap 6, Blood Urea Nitrogen 2L, Creatinine 0.48L, Estimat Glomerular Filtration Rate > 60, BUN /Creatinine Ratio 4, Glucose Level 87, Calcium Level 7.0L, Magnesium Level 1.6L Microbiology 10/18/16 Blood Culture - Preliminary, Resulted No growth 10/18/16 C. difficile GDH Antigen & Toxins - Final, Complete 10/18/16 MRSA Screen - Final, Complete MRSA not isolated 10/18/16 Urine Culture - Final, Complete Pseudomonas Aeruginosa Assessment/Plan Assessment/Plan Assessment/Plan C. difficile colitis, dementia, depression with behavioral disturbance Patient labs improving. Patient by exam no change. His continued to have loose stools. Continue medical management Will follow no surgical intervention at this time Clinical Quality Measures DVT/VTE Risk/Contraindication: Risk Factor Score Per Nursin RFS Level Per Nursing on Admit: 4+=Very High EULALIA NOONAN DO Oct 22, 2016 21:55
[2016-10-23] VITALS: BP 155/77
[2016-10-23] MEDS: DIVALPROX SPRINKLE 125 MG (DEPAKOTE) CAP PO SCH ×2 (00:13→05:04)
[2016-10-23] MEDS: VANCOMYCIN ORAL 250 MG/5 ML 60 ML PO SCH ×4 (00:14→05:03)
[2016-10-23] MEDS: ALPRAZolam 0.25 MG (XANAX) TAB PO PRN (00:43)
[2016-10-23] MEDS: NS W/KCL 40 MEQ/L 1,000 ML IV SCH (01:59)
[2016-10-23] MEDS: fentaNYL INJECTION 100 MCG/2 ML AMP IVP PRN (02:25)
[2016-10-23] MEDS: metroNIDAZOLE 500MG/100ML IVPB 100 ML IV SCH (05:03)
[2016-10-23] MEDS: OMEGA 3 (FISH OIL) 1000 MG CAP PO SCH (05:04)
[2016-10-23] MEDS: KCL 10 MEQ TAB (MICRO K) PO SCH (05:04)
[2016-10-23] MEDS: LACTOBACILLUS Acidoph/Bulgar (LACTINEX/FLORANEX) TAB PO SCH (05:04)
[2016-10-23 05:15] LABS: BASOPHILS % (AUTO) 0 % (0-10); EOSINOPHILS # (AUTO) 0.4 10^3/uL (0.0-0.3); EOSINOPHILS % (AUTO) 4 % (0-10); LYMPHOCYTES # (AUTO) 1.3 X 10^3 (1.0-4.0); LYMPHOCYTES % (AUTO) 14 % (12-44); MEAN CORPUSCULAR HEMOGLOBIN 29 PG (25-34); MEAN CORPUSCULAR HGB CONC 33 G/DL (32-36); MEAN CORPUSCULAR VOLUME 90 FL (80-99); MEAN PLATELET VOLUME 9.4 FL (7.4-10.4); MONOCYTES # (AUTO) 1.3 X 10^3 (0.0-1.0); MONOCYTES % (AUTO) 14 % (0-12); NEUTROPHILS # (AUTO) 6.3 X 10^3 (1.8-7.8); NEUTROPHILS % (AUTO) 68 % (42-75); PLATELET COUNT 216 10^3/uL (130-400); RED BLOOD COUNT 3.76 10^6/uL (4.35-5.85); RED CELL DISTRIBUTION WIDTH 15.2 % (10.0-14.5); WHITE BLOOD COUNT 9.3 10^3/uL (4.3-11.0)
[2016-10-23 05:35] LABS: ANION GAP 7 MMOL/L (5-14); BLOOD UREA NITROGEN < 2 MG/DL (7-18); BUN/CREATININE RATIO 4; CARBON DIOXIDE 23 MMOL/L (21-32); CHLORIDE 108 MMOL/L (98-107); CREATININE SERUM 0.48 MG/DL (0.60-1.30); GFR ESTIMATED > 60; GLUCOSE 84 MG/DL (70-105); MAGNESIUM 1.6 MG/DL (1.8-2.4); SODIUM 138 MMOL/L (135-145)
[2016-10-23] MEDS: RT-ALBUTEROL/IPRATROPIUM 3 ML (DUONEB) VIAL INH SCH (06:41)
[2016-10-23] MEDS ORDERED: MAGNESIUM 1 GM/100 ML IVPB 100 ML IV SCH (08:15)
[2016-10-23] MEDS ORDERED: POTASSIUM CL 10MEQ/50ML IVPB 50 ML IV SCH (08:15)
--- NOTE | 2016-10-23 08:17 | Diagnostic Imaging Report ---
INDICATION: Fever. Frontal chest obtained at 3:50 a.m. and compared with 10/22/16. FINDINGS: There is cardiomegaly. There is mild central vascular prominence. There is some infiltrate or atelectasis in the right medial base which appears similar to the prior study. Left lung shows no acute finding. PICC line is stable. IMPRESSION: Cardiomegaly with poor inspiration. There is unchanged right medial basilar infiltrate versus atelectasis. Dictated by: Dictated on workstation # [id number]
--- NOTE | 2016-10-23 08:22 | Discharge Summary ---
Diagnosis/Chief Complaint Date of Admission Oct 18, 2016 at 21:32 Date of Discharge Oct 23, 2016 Admission Diagnosis Admission Diagnosis Severe Sepsis due to reoccurence of c.diff colitis, UTI- c.diff colitis- hypotension- urinary retention- Frequent falls and weakness- h/o seizures- COPD- hypokalemia- h/o hypomagnesemia - Dementia with behavioral disturbance- Depression with behavior/verbal disturbance- Discharge Diagnosis c.diff colitis- urinary retention- Frequent falls and weakness- h/o seizures- COPD- hypokalemia- hypomagnesemia - Dementia with behavioral disturbance- Depression with behavior/verbal disturbance- HTN- Reason Hospital Visit 76 yo M admitted to the ICU for severe sepsis due to a reoccurence of clostridium difficule colitis. Discharge Summary Hospital Course Hospital Course 76 yo male admitted to ICU for severe sepsis due to reoccurence of c.diff colitis- he was started on IV metronidazole and po vancomycin. Severe sepsis protocol was implemented with 30ml/kg followed by continued fluid resucitation. IV vasopressors were not required. The day after pt's blood pressure remained low but began to increase. A owens catheter was placed on admission for strict I/Os as well as pt has urinary retention usually requiring a catheterization. Pt is no longer septic- fever resolved, WBC trended down- Patient was transferred to 4th floor 10/21/16 PT was consulted to help with pt's weakness. Patient's dilantin and keppra were continued. As for his electrolyte derangement pt continued to require potassium and magnesium replacement. He did become hypertensive so his blood pressure medications were resumed. Through this hospital stay and recent ones in the past year have been complicated by patient's dementia and depression due to verbal and behavior disturbance. Patient does continue to require inpatient care he will be admitted to [facility]. Labs Laboratory Tests 10/23/16 05:00: Red Blood Count 3.76L, Hemoglobin 11.0L, Hematocrit 34L, Red Cell Distribution Width 15.2H, Monocytes (%) (Auto) 14H, Monocytes # (Auto) 1.3H, Eosinophils # ( Auto) 0.4H, Potassium Level 3.0L, Chloride Level 108H, Blood Urea Nitrogen < 2L , Creatinine 0.48L, Calcium Level 7.0L, Magnesium Level 1.6L 10/24/16 06:16: Red Blood Count 3.92L, Hemoglobin 11.5L, Hematocrit 35L, Red Cell Distribution Width 15.3H, Monocytes (%) (Auto) 16H, Monocytes # (Auto) 1.8H, Potassium Level 2.8L, Blood Urea Nitrogen 2L, Creatinine 0.46L, Calcium Level 7.2L, Magnesium Level 1.6L, White Blood Count 11.3H Procedures None. Discharge Physical Examination Allergies: Coded Allergies: No Known Drug Allergies (Unverified , 09/01/16) Vitals & I&Os Vital Signs Date Time Temp Pulse Resp B/P (MAP) Pulse Ox O2 Delivery O2 Flow Rate FiO2 10/23/16 06:42 95 Room Air 10/23/16 00:00 99.1 74 19 155/77 General Appearance: Alert HEENT: Atraumatic, PERRLA Respiratory: Clear to Auscultation Cardiovascular: Regular Rate Abdominal: Normal Bowel Sounds, Soft (distended) Extremities: No Clubbing Skin: No Rashes Neuro: Normal Speech Psych/Mental Status: Other (angry mood- yells out because he gets staff's attention.) Discharge Home Medications Reviewed and agree with Discharge Medication list on patient's Discharge Instruction sheet Condition at Discharge improved but still needing inpatient care- patient discharged 10/23/16 and [address] [facility]. Patient is still on metronidazole IV for his recurrent clostridium difficule colitis and needing IV potassium and magnesium replacement for electrolyte derangement. Instructions to Patient/Family Please see electronic discharge instructions given to patient. Clinical Quality Measures DVT/VTE Risk/Contraindication: Risk Factor Score Per Nursin RFS Level Per Nursing on Admit: 4+=Very High BRYANT WAGNER MD Oct 23, 2016 08:22
[2016-10-24 06:39] LABS: BASOPHILS % (AUTO) 0 % (0-10); EOSINOPHILS # (AUTO) 0.3 10^3/uL (0.0-0.3); EOSINOPHILS % (AUTO) 3 % (0-10); LYMPHOCYTES # (AUTO) 1.5 X 10^3 (1.0-4.0); LYMPHOCYTES % (AUTO) 13 % (12-44); MEAN CORPUSCULAR HEMOGLOBIN 29 PG (25-34); MEAN CORPUSCULAR HGB CONC 33 G/DL (32-36); MEAN CORPUSCULAR VOLUME 89 FL (80-99); MEAN PLATELET VOLUME 9.9 FL (7.4-10.4); MONOCYTES # (AUTO) 1.8 X 10^3 (0.0-1.0); MONOCYTES % (AUTO) 16 % (0-12); NEUTROPHILS # (AUTO) 7.7 X 10^3 (1.8-7.8); NEUTROPHILS % (AUTO) 68 % (42-75); PLATELET COUNT 261 10^3/uL (130-400); RED BLOOD COUNT 3.92 10^6/uL (4.35-5.85); RED CELL DISTRIBUTION WIDTH 15.3 % (10.0-14.5); WHITE BLOOD COUNT 11.3 10^3/uL (4.3-11.0)
[2016-10-24 06:53] LABS: ANION GAP 8 MMOL/L (5-14); BLOOD UREA NITROGEN 2 MG/DL (7-18); BUN/CREATININE RATIO 4; CALCIUM 7.2 MG/DL (8.5-10.1); CARBON DIOXIDE 24 MMOL/L (21-32); CHLORIDE 104 MMOL/L (98-107); CREATININE SERUM 0.46 MG/DL (0.60-1.30); GFR ESTIMATED > 60; GLUCOSE 96 MG/DL (70-105); MAGNESIUM 1.6 MG/DL (1.8-2.4); POTASSIUM 2.8 MMOL/L (3.6-5.0); SODIUM 136 MMOL/L (135-145)
[2016-10-26] MEDS ORDERED: HYDROCORTISONE 100 MG/2 ML (Solu-CORTEF) VIAL IV SCH (04:00)
[2016-10-28] MEDS ORDERED: HYDROCORTISONE 100 MG/2 ML (Solu-CORTEF) VIAL IV SCH (08:00)
[2016-10-31] MEDS ORDERED: HYDROCORTISONE 100 MG/2 ML (Solu-CORTEF) VIAL IV SCH (09:00)
== END 2016-10-23 08:24 | disposition swing bed (61) | DRG 871 ==
LOC: ICU 21:32 → 4TH 10-21 11:40
PROVIDERS: ADMIT Internal Medicine; ATTEND Family Medicine
PROC: 02HV33Z Insertion of Infusion Device into Superior Vena Cava, Percutaneous Approach (ICD-10-PCS; principal; 2016-10-22)
DX: A41.89 Other specified sepsis (principal); A04.7 Enterocolitis due to Clostridium difficile; R65.21 Severe sepsis with septic shock; N39.0 Urinary tract infection, site not specified; B96.5 Pseudomonas (aeruginosa) (mallei) (pseudomallei) as the cause of diseases classified elsewhere; I48.92 Unspecified atrial flutter; E87.4 Mixed disorder of acid-base balance; R33.9 Retention of urine, unspecified; Z66 Do not resuscitate; G20 Parkinson's disease; F02.81 Dementia in other diseases classified elsewhere, unspecified severity, with behavioral disturbance; J44.9 Chronic obstructive pulmonary disease, unspecified; G40.909 Epilepsy, unspecified, not intractable, without status epilepticus; I25.10 Atherosclerotic heart disease of native coronary artery without angina pectoris; I10 Essential (primary) hypertension; R53.1 Weakness; E87.6 Hypokalemia; E83.42 Hypomagnesemia; F32.9 Major depressive disorder, single episode, unspecified; F41.9 Anxiety disorder, unspecified; H91.90 Unspecified hearing loss, unspecified ear; H54.3 Unqualified visual loss, both eyes; E66.9 Obesity, unspecified; R29.6 Repeated falls; Z68.33 Body mass index [BMI] 33.0-33.9, adult; Z86.73 Personal history of transient ischemic attack (TIA), and cerebral infarction without residual deficits; Z95.5 Presence of coronary angioplasty implant and graft; Z87.891 Personal history of nicotine dependence
CPT/HCPCS: 36415; 36569; 71010; 74000; 76937; 80048; 80053; 81000; 82040; 82330; 82805; 82962; 83605; 83735; 83880; 84100; 84484; 85007; 85018; 85025; 85027; 85610; 85730; 87040; 87077; 87081; 87088; 87186; 87324; 87449; 93005; 93306; 94640; 94664; 94760

== ENCOUNTER 2016-10-23 08:25 | Inpatient (IN) | payer MEDICARE ==
[~2016-10-23] VITALS: Ht 177.8 cm; Wt 105.7 kg
[2016-10-23 08:00] VITALS: BP 154/84
[~2016-10-23 08:25] MED LIST changes: +CHOL4PAC2 PO; +HYDR-757 PO; +MELA1TAB27 PO; +MV-M1TAB38 PO; +QUET100T69 PO
[2016-10-23] MEDS: MAGNESIUM 1 GM/100 ML IVPB 100 ML IV SCH ×3 (09:03→12:17)
[2016-10-23] MEDS: POTASSIUM CL 10MEQ/50ML IVPB 50 ML IV SCH ×4 (09:03→12:17)
[2016-10-23] MEDS: ASPIRIN 81 MG CHEW (CHILDREN'S ASA) PO SCH (09:04)
[2016-10-23] MEDS: LOSARTAN 50 MG (COZAAR) TAB PO SCH (09:04)
[2016-10-23] MEDS: LEVETIRACETAM 500 MG (KEPPRA) TAB PO SCH ×2 (09:05→20:18)
[2016-10-23] MEDS: meTOprolol TARTRATE 25 MG (LOPRESSOR) TABLET PO SCH ×2 (09:05→20:18)
[2016-10-23] MEDS: PHENYTOIN 100 MG (DILANTIN) CAP PO SCH ×2 (09:05→20:18)
[2016-10-23] MEDS: QUEtiapine 25 MG (SEROquel) TAB IMMEDIATE RELEASE PO SCH ×2 (09:06→20:18)
[2016-10-23] MEDS: FAMOTIDINE 20 MG (PEPCID) TABLET PO SCH ×2 (09:06→20:18)
[2016-10-23] MEDS: SERTRALINE 100 MG (ZOLOFT) TAB PO SCH (09:07)
[2016-10-23] MEDS: MONTELUKAST 10 MG (SINGULAIR) TAB PO SCH (09:07)
--- NOTE | 2016-10-23 09:27 | Physical Therapy Progress Note ---
Therapy Progress Note Pt was attempted for tx this morning. Pt reluctantly agreed after staff educated on how Therapy helps pt get stronger to be able to discharge. PT got gown for pt so pt could stand and upon returning, pt changed his mind and didn' t want to be seen. Shortly after PT received order that pt is now SWB so will be seen be PT to evaluate. 1 visit, no tx Time: 825 JESS RUIZ CROSSTIE INSPECTOR Oct 23, 2016 09:27
[2016-10-23 10:02] VITALS: BP 154/84
--- NOTE | 2016-10-23 10:07 | Progress Note-Cardiology ---
Cardiology SOAP Progress Note Subjective: In bed. States he does not feel well all over. C/O abdominal discomfort. C/O some SOB. Objective: I&O/Vital Signs Vital Sign - Last 12Hours 10/23/16 10/23/16 10/23/16 10/23/16 08:00 11:01 12:00 14:47 Temp 97.5 97.9 Pulse 76 75 Resp 20 18 B/P (MAP) 154/84 165/85 Pulse Ox 93 95 94 95 O2 Delivery Room Air Nasal Cannula Room Air Nasal Cannula O2 Flow Rate 2.00 2.00 10/23/16 15:33 Temp 97.4 Pulse 86 Resp 20 B/P (MAP) 135/85 Pulse Ox 94 O2 Delivery Room Air Intake and Output 10/24/16 00:00 Intake Total 1000 ml Output Total 2350 ml Balance -1350 ml Weight (Pounds): 233 Weight (Ounces): 1.0 Weight (Calculated Kilograms): 105.761609 Respiratory: other (fair air entry) Cardiovascular: regular rate-rhythm, No JVD, S1 and S2, systolic murmur (soft MALCOLM) Gastrointestional: tender, round, distended Neurologic/Psychiatric: grossly intact Skin: No ulcerations A/P: Assessment: Septic shock, managed by Med services Tachycardia at presentation: sinus tach vs atrial flutter (treated with iv amidoarone) Echo on 10/21/16: LVEF 60-65%, grade I diastolic dysfunction, PASP approx 30 mmHg UTI, due to pseudomonas C. difficile colitis, managed by Dr. Ham. Metabolic acidosis and lactic acidosis, being managed by the Med and ICU services Hypokalemia, being corrected Dementia, by history History of seizure disorder Plan: Plan: Monitor labs Replace electrolytes Physician Assessment Physician Assessment Not able to provide any meaningful history. Notes gen discomfort Disoriented Lungs: good bilat air entry Cor: reg Ext: no c/c A&R * As documented in our note above that I updated (italics) and as noted below * No new card recs at this time ERNIE JAY GLOBAL ACCOUNT DIRECTOR Oct 23, 2016 10:07 JONA RAGSDALE MD FACP [facility] Oct 23, 2016 19:08
--- NOTE | 2016-10-23 10:32 | Physical Therapy Evaluation ---
PT Evaluation-General Medical Diagnosis Admission Date Oct 23, 2016 at 08:25 Medical Diagnosis: sepsis Onset Date: Oct 19, 2016 Therapy Diagnosis Therapy Diagnosis: generalized weakness/debility Height/Weight Height (Feet): 5 Height (Inches): 10.00 Weight (Pounds): 233 Weight (Ounces): 1.0 Precautions Precautions/Isolations: Standard Precautions, Contact/Enteric Isolation Referral Physician: Delia Mckeon Reason for Referral: Evaluation/Treatment Medical History Pertinent Medical History: CAD, COPD, CVA, Dementia, HTN, Parkinson's Additional Medical History increased confusion/dementia Current History SWB status Reviewed History: Yes Social History Home: Retirement Prior/Core FIM Prior Level of Function Functional [place] Measure 0=Not Assessed/NA 4=Minimal Assistance 1=Total Assistance 5=Supervision or Setup 2=Maximal Assistance 6=Modified [place] 3=Moderate Assistance 7=Complete [place] Bed Mobility: 3 Transfers (B,C,W/C) (FIM): 3 Gait: 1 PT Evaluation-Current Subjective Patient agrees to PT. Pain Numeric Pain Scale: 0-No Pain Location: No Pain Reported Objective Patient Orientation: Confused Problem Solving: Poor Attachments: IV ROM/Strength ROM Lower Extremities bilateral LE WNL Strenght Lower Extremities bilateral LE 3/5 grossly Integumentary/Posture Integumentary refer to nursing notes Bowel Incontinence: Yes (rectal tube) Bladder Incontinence: Esteban Cath Posture functional Neuromuscular (Tone, Coordination, Reflexes) slightly diminished Sensory Vision: Wears Glasses Hearing: Impaired Sensation Right Lower Extremit: Impaired Sensation Left Lower Extremity: Impaired Transfers Functional [place] Measure 0=Not Assessed/NA 4=Minimal Assistance 1=Total Assistance 5=Supervision or Setup 2=Maximal Assistance 6=Modified [place] 3=Moderate Assistance 7=Complete [place] Transfers (B, C, W/C) (FIM): 2 Scootin Rollin Supine to/from Sit: 2 Sit to/from Stand: 3 Sit to Lying (QC): 1 Lying to Sitting/Side of Bed(Q: 1 Sit to Stand (QC): 2 Gait Does the Patient Walk?: No and Walking Goal IS indicated Mode of Locomotion: Both Anticipated Mode of Locomotion: Both Gait Assistive Device: FWW Balance Sitting Static: Fair Sitting Dynamic: Fair Standing Static: Fair Standing Dynamic: Fair Treatment bilateral LE exercises AAROM 15 reps each AP, HS, SLR, ABD/ADD; patient became increasingly agitated and treatment ceased Assessment/Needs 76 y.o. male will benefit from short term skilled PT to address functional mobility and strength to improve current LOF. Patient is limited due to dementia, agitation and difficulty with following direction. Rehab Potential: Guarded PT Industrial Order Clerk Goals Snf Goals PT Snf Goals Time Frame: Oct 31, 2016 Transfers (B,C,W/C) (FIM): 4 Sit to Lying (QC): 3 Lying-Sitting on Side/Bed(QC): 3 Sit to Stand (QC): 3 Rollin Chair/[id number] Xfer(QC): 3 Does the Patient Walk: Yes Gait (FIM): 1 Gait distance (FIM): 1=up to 49 ft Distance: 15' Gait Assistive Device: FWW PT Plan Problem List Problem List: Activity Tolerance, Functional Strength, Safety, Balance, Gait, Transfer, Bed Mobility Treatment/Plan Treatment Plan: Continue Plan of Care Treatment Plan: Bed Mobility, Education, Functional Activity Roberto, Functional Strength, Gait, Safety, Therapeutic Exercise, Transfers Treatment Duration: Oct 31, 2016 Frequency: 6 times per week Estimated Hrs Per Day: .25 hour per day Patient and/or Family Agrees t: Yes Discharge Recommendations Therapy D/C Recommendations: Retirement Placement Time/GCodes Time In: 901 Time Out: 924 Total Billed Treatment Time: 23 Total Billed Treatment 1 visit Marycruz 8 min EX 15 min TANG RODRIGUEZ PT Oct 23, 2016 10:32
[2016-10-23] MEDS: RT-ALBUTEROL/IPRATROPIUM 3 ML (DUONEB) VIAL INH SCH ×3 (10:59→20:11)
[2016-10-23] MEDS: LACTOBACILLUS Acidoph/Bulgar (LACTINEX/FLORANEX) TAB PO SCH ×2 (11:15→18:01)
[2016-10-23 12:00] VITALS: BP 165/85
[2016-10-23] MEDS: DIVALPROX SPRINKLE 125 MG (DEPAKOTE) CAP PO SCH ×3 (12:17→23:41)
[2016-10-23] MEDS: VANCOMYCIN ORAL 250 MG/5 ML 60 ML PO SCH ×6 (12:18→23:41)
[2016-10-23] MEDS: metroNIDAZOLE 500MG/100ML IVPB 100 ML IV SCH ×2 (14:14→22:02)
--- NOTE | 2016-10-23 14:43 | Occupational Therapy Eval ---
OT Evaluation-General/PLF Medical Diagnosis Admission Date Oct 23, 2016 at 08:25 Medical Diagnosis: sepsis Onset Date: Oct 19, 2016 Therapy Diagnosis Therapy Diagnosis: Weakness Height/Weight Height (Feet): 5 Height (Inches): 10.00 Weight (Pounds): 233 Weight (Ounces): 1.0 Precautions Precautions/Isolations: Standard Precautions, Contact/Enteric Isolation Weight Bear Status Weight Bearing Restriction: Weight Bearing/Tolerated Referral Physician: Delia Mckeon Referral Reason: Activity Tolerance, Self Care, Evaluation/Treatment, Strengthening/ROM Medical History Pertinent Medical History: CAD, COPD, CVA, Dementia, HTN, Parkinson's Additional Medical History cataracts, detached retina, dementia, parkinsons, seizures Current History Pt. resident at [place]. Became septic. Rectal cath inserted. Pt. is unable to provide any history. Yells out during spongebath, and refuses to assist. States, "leave me alone, I'm cold." Reviewed History: Yes Social History Home: Shelter Current Living Status: Entry Into Home: Level Entry ADL-Prior Level of Function ADL PLOF Comments Pt. is unable to state any previous history. Confused. Drive Self: No OT Current Status Subjective Pt. yells. Refused to work with OT. Noted smell indicating rectal cath leakage. Nursing and OT assisted pt. with bed bath. Appearance OT encouraged throughout treatment for pt. do some things for himself, like assist with bed rolls, wash face, chest, etc......Pt. dabs at face but then refuses to assist with anything else. Yells at nursing and therapist while bed/ linen change and spongebath is being performed. Mental Status/Objective Patient Orientation: Confused Current Glasses/Contacts: Yes Pt. is unable to follow any commands to determine UE strength or ROM. ADL-Treatment Functional [place] Measure 0=Not Assessed/NA 4=Minimal Assistance 1=Total Assistance 5=Supervision or Setup 2=Maximal Assistance 6=Modified [place] 3=Moderate Assistance 7=Complete IndependenceIRFPAI Quality Coding Scale 6 Independent with activity with or without an assistive device 5 Patient requires set up or clean up by helper. Patient completes activity by themselves 4 Supervision or touching assist (CGA). [place] provide cues , steadying assist 3 The helper provides less than half the effort to complete the activity 2 The helper provides more than half the effort to complete the activity 1 Dependent. The helper does all the effort to complete an activity 7 Patient refused to complete or attempt activity 9 The patient did not perform the activity before the current illness or injury 88 Not attempted due to Medical conditions or safety concerns Bathing (FIM): 1 Toileting (FIM): 1 Other Treatments Pt. does not participate in bed bath. OT and nursing roll pt. side to side and cleanse all areas, and change bed linens while doing so. Pt. is encouraged to participate but continues to yell and is verbal. Becomes angry that OT is not getting him his pillow fast enough. Pt. is encouraged to attempt sitting up. Keeps eyes closed and yells, "no!" All needs are met in bed with nursing assist. Education OT Patient Education: Correct positioning, Modified ADL techniques, Progress toward Goal/Update tx plan, Purpose of tx/functional activities, Reviewed precautions, Rehab process, Transfer techniques Teaching Recipient: Patient Teaching Methods: Demonstration, Discussion Response to Teaching: Verbalize Understanding, Return Demonstration OT Short Term Goals Short Term Goals 1=Demonstrate adherence to instructed precautions during ADL tasks. 2=Patient will verbalize/demonstrate understanding of assistive devices/ modifications for ADL. 3=Patient will improve strength/tolerance for activity to enable patient to perform ADL's. OT Communications Equipment Installer Goals Group Home Goals Time Frame: Nov 06, 2016 Eating (FIM): 5 Eating (QC): 5 Groomin Oral Hygiene (QC): 4 Toileting(FIM): 4 Toileting Hygiene (QC): 4 Transfers (B,C,W/C) (FIM): 4 Toilet/Commode Transfer(FIM): 4 Toilet/Commode Transfer (QC): 4 Additional Goals: 1-Demonstrate ADL Tasks, 2-Verbalize Understanding, 3- ImproveStrength/Roberto 1=Demonstrate adherence to instructed precautions during ADL tasks. 2=Patient will verbalize/demonstrate understanding of assistive devices/ modifications for ADL. 3=Patient will improve strength/tolerance for activity to enable patient to perform ADL's. OT Education/Plan Problem List/Assessment Assessment: Decreased Activ Tolerance, Decreased Safety Aware, Decreased UE Strength, Dependent Transfers, Edema, Impaired Bed Mobility, Impaired Cognition , Impaired Coordination, Impaired Funct Balance, Impaired I ADL's, Impaired Self -Care Skills, Restricted Funct UE ROM Discharge Recommendations Plan/Recommendations: Continue POC Therapy D/C Recommendations: 24 hr Supervision Barriers to Progress Cognition, weakness Treatment Plan/Plan of Care Treatment,Training & Education: Yes Patient would benefit from OT for education, treatment and training to promote independence in ADL's, mobility, safety and/or upper extremity function for ADL' s. Plan of Care: ADL Retraining, Caregiver Training, Cognitive Retraining, Functional Mobility, UE Funct Exercise/Act Treatment Duration: Nov 06, 2016 Frequency: 5 times per week Estimated Hrs Per Day: .5 hour per day Agreement: Yes Rehab Potential: Guarded Time/GCodes Start Time: 09:25 Stop Time: 09:50 Total Time Billed (hr/min): 25 Billed Treatment Time 1, EVhigh x 10minutes, ADL x 15minutes INDU LAUREANO OT Oct 23, 2016 14:43
[2016-10-23 15:33] VITALS: BP 135/85
[2016-10-23] MEDS: ENOXAPARIN 40 MG/0.4 ML (LOVENOX) SYR SC SCH (18:01)
[2016-10-23] MEDS: ALFUZOSIN HCL 10 MG TAB (UROXATRAL) PO SCH (18:01)
[2016-10-23 20:16] VITALS: BP 159/85
[2016-10-23 20:17] VITALS: BP 159/85
[2016-10-24] VITALS (7 sets, daily range): BP systolic 128–177; BP diastolic 65–90
[2016-10-24] MEDS: LACTOBACILLUS Acidoph/Bulgar (LACTINEX/FLORANEX) TAB PO SCH ×3 (06:17→15:43)
[2016-10-24] MEDS: metroNIDAZOLE 500MG/100ML IVPB 100 ML IV SCH ×3 (06:17→21:46)
[2016-10-24] MEDS: DIVALPROX SPRINKLE 125 MG (DEPAKOTE) CAP PO SCH ×4 (06:17→23:52)
[2016-10-24] MEDS: VANCOMYCIN ORAL 250 MG/5 ML 60 ML PO SCH ×8 (06:18→23:52)
[2016-10-24] MEDS ORDERED: KCL 10 MEQ TAB (MICRO K) PO SCH (07:00)
[2016-10-24] MEDS: RT-ALBUTEROL/IPRATROPIUM 3 ML (DUONEB) VIAL INH SCH ×4 (08:43→19:50)
[2016-10-24] MEDS: PHENYTOIN 100 MG (DILANTIN) CAP PO SCH ×2 (09:01→20:24)
[2016-10-24] MEDS: ASPIRIN 81 MG CHEW (CHILDREN'S ASA) PO SCH (09:01)
[2016-10-24] MEDS: MONTELUKAST 10 MG (SINGULAIR) TAB PO SCH (09:01)
[2016-10-24] MEDS: LEVETIRACETAM 500 MG (KEPPRA) TAB PO SCH ×2 (09:01→20:20)
[2016-10-24] MEDS: LOSARTAN 50 MG (COZAAR) TAB PO SCH (09:02)
[2016-10-24] MEDS: SERTRALINE 100 MG (ZOLOFT) TAB PO SCH (09:02)
[2016-10-24] MEDS: FAMOTIDINE 20 MG (PEPCID) TABLET PO SCH ×2 (09:02→20:21)
[2016-10-24] MEDS: meTOprolol TARTRATE 25 MG (LOPRESSOR) TABLET PO SCH ×2 (09:02→20:20)
[2016-10-24] MEDS: QUEtiapine 25 MG (SEROquel) TAB IMMEDIATE RELEASE PO SCH ×2 (09:02→20:21)
--- NOTE | 2016-10-24 09:54 | Physical Therapy Daily Note ---
PT Daily Note-Current Subjective Patient is yelling "Help me...Help me." Mental Status Patient Orientation: Confused Transfers Functional [place] Measure 0=Not Assessed/NA 4=Minimal Assistance 1=Total Assistance 5=Supervision or Setup 2=Maximal Assistance 6=Modified [place] 3=Moderate Assistance 7=Complete IndependenceIRFPAI Quality Coding Scale 6 Independent with activity with or without an assistive device 5 Patient requires set up or clean up by helper. Patient completes activity by themselves 4 Supervision or touching assist (CGA). [place] provide cues , steadying assist 3 The helper provides less than half the effort to complete the activity 2 The helper provides more than half the effort to complete the activity 1 Dependent. The helper does all the effort to complete an activity 7 Patient refused to complete or attempt activity 9 The patient did not perform the activity before the current illness or injury 88 Not attempted due to Medical conditions or safety concerns Transfers (B, C, W/C) (FIM): 2 Scootin Roll Left to Right (QC): 1 Patient is unable to remain on task and follow simple direction on this date. Bed mobility exercises to change and cleanse patient. Exercises Supine Ex: Ankle pumps, Heel Slides Supine Reps: 15 Assessment Patient's abdomen appears distended today vs. yesterday. RN notified. Patient is supine in bed with needs met. PT Automatic Folder Seamer Goals Long-Term Goals PT Automatic Folder Seamer Goals Time Frame: Oct 31, 2016 Transfers (B,C,W/C) (FIM): 4 Sit to Lying (QC): 3 Lying-Sitting on Side/Bed(QC): 3 Sit to Stand (QC): 3 Rollin Chair/[id number]-[id number] Xfer(QC): 3 Does the Patient Walk: Yes Gait (FIM): 1 Gait distance (FIM): 1=up to 49 ft Distance: 15' Gait Assistive Device: FWW PT Plan Treatment/Plan Treatment Plan: Continue Plan of Care Treatment Plan: Bed Mobility, Education, Functional Activity Roberto, Functional Strength, Gait, Safety, Therapeutic Exercise, Transfers Treatment Duration: Oct 31, 2016 Frequency: 6 times per week Estimated Hrs Per Day: .25 hour per day Patient and/or Family Agrees t: Yes Time/GCodes Time In: 820 Time Out: 835 Total Billed Treatment Time: 15 Total Billed Treatment 1 visit FA 15 min TANG RODRIGUEZ PT Oct 24, 2016 09:54
[2016-10-24] MEDS ORDERED: CHOLESTYRAMINE 4 GM (QUESTRAN LITE, PREVALITE) PKT PO PRN (10:00)
--- NOTE | 2016-10-24 10:13 | Occupational Ther Daily Note ---
OT Current Status-Daily Note Subjective Pt seen in room, up in bed, agreeable to OT. No pain mentioned. Mental Status/Objective Functional [place] Measure 0=Not Assessed/NA 4=Minimal Assistance 1=Total Assistance 5=Supervision or Setup 2=Maximal Assistance 6=Modified [place] 3=Moderate Assistance 7=Complete [place] ADL-Treatment Pt had just toileted with nursing. Required two people to transfer him to [facility] and to manage clothing and hygiene. Pt needed setup for breakfast, physical help to take bites 75% of the time, able to put food in his mouth when already on fork or spoon. Able to hold straw and cup but still with 50% help to get a drink. Pt c/o feeling "sick" and refused to eat. Pt did wash mouth off with washcloth with setup but refused to wash rest of face. Pt left in bed, 4 rails up, telesitter, call light present. Functional [place] Measure 0=Not Assessed/NA 4=Minimal Assistance 1=Total Assistance 5=Supervision or Setup 2=Maximal Assistance 6=Modified [place] 3=Moderate Assistance 7=Complete IndependenceIRFPAI Quality Coding Scale 6 Independent with activity with or without an assistive device 5 Patient requires set up or clean up by helper. Patient completes activity by themselves 4 Supervision or touching assist (CGA). [place] provide cues , steadying assist 3 The helper provides less than half the effort to complete the activity 2 The helper provides more than half the effort to complete the activity 1 Dependent. The helper does all the effort to complete an activity 7 Patient refused to complete or attempt activity 9 The patient did not perform the activity before the current illness or injury 88 Not attempted due to Medical conditions or safety concerns Eating (FIM): 2 Eating (QC): 2 Toileting (FIM): 1 Toileting Hygiene (QC): 1 Toilet/Commode Transfer (FIM): 1 Toilet Transfer (QC): 1 Education OT Patient Education: Purpose of tx/functional activities Teaching Recipient: Patient Teaching Methods: Discussion Response to Teaching: Reinforcement Needed OT Short Term Goals Short Term Goals 1=Demonstrate adherence to instructed precautions during ADL tasks. 2=Patient will verbalize/demonstrate understanding of assistive devices/ modifications for ADL. 3=Patient will improve strength/tolerance for activity to enable patient to perform ADL's. OT Senior Care Goals Senior Care Goals Time Frame: Nov 06, 2016 Eating (FIM): 5 Eating (QC): 5 Groomin Oral Hygiene (QC): 4 Toileting(FIM): 4 Toileting Hygiene (QC): 4 Transfers (B,C,W/C) (FIM): 4 Toilet/Commode Transfer(FIM): 4 Toilet/Commode Transfer (QC): 4 Additional Goals: 1-Demonstrate ADL Tasks, 2-Verbalize Understanding, 3- ImproveStrength/Roberto 1=Demonstrate adherence to instructed precautions during ADL tasks. 2=Patient will verbalize/demonstrate understanding of assistive devices/ modifications for ADL. 3=Patient will improve strength/tolerance for activity to enable patient to perform ADL's. OT Education/Plan Discharge Recommendations Plan/Recommendations: Continue POC Treatment Plan/Plan of Care Patient would benefit from OT for education, treatment and training to promote independence in ADL's, mobility, safety and/or upper extremity function for ADL' s. Plan of Care: ADL Retraining, Caregiver Training, Cognitive Retraining, Functional Mobility, UE Funct Exercise/Act Treatment Duration: Nov 06, 2016 Frequency: 5 times per week Estimated Hrs Per Day: .5 hour per day Agreement: Yes Rehab Potential: Guarded Time/GCodes Start Time: 09:45 Stop Time: 10:00 Total Time Billed (hr/min): 15 Billed Treatment Time visit, 15 minutes ADL PRIETO ARIZA OT Oct 24, 2016 10:13
[2016-10-24] MEDS: MAGNESIUM 1 GM/100 ML IVPB 100 ML IV SCH (10:38)
[2016-10-24] MEDS: KCL 20 MEQ TAB (K-DUR) PO SCH (10:38)
[2016-10-24] MEDS: POTASSIUM CL 10MEQ/50ML IVPB 50 ML IV SCH ×3 (10:38→13:21)
--- NOTE | 2016-10-24 14:18 | Progress Note (SOAP) ---
Subjective Subjective Date Seen by Provider: Oct 24, 2016 Time Seen by Provider: 07:55 76 yo M with c.diff colitis- continues to yell out for help- in the past ativan and haldol have made pt worse- have not tried either this stay. Seroquel does help some. Rectal tube removed yesterday as stools are a little more formed. No overnight events. Review of Systems General: No Chills, No Night Sweats HEENT: No Head Aches, No Visual Changes Pulmonary: No Dyspnea, No Cough Cardiovascular: No: Chest Pain, Palpitations Gastrointestinal: Diarrhea, No: Nausea, Vomiting, Abdominal Pain Genitourinary: Dysuria, Frequency, Incontinence Neurological: Weakness Objective Exam Vital Signs Vital Sign - Last 12Hours 10/23/16 10/23/16 08:00 11:01 Temp 97.5 Pulse 76 Resp 20 B/P (MAP) 154/84 Pulse Ox 93 O2 Delivery Room Air O2 Flow Rate 2.00 Capillary Refill : General Appearance: Mild Distress HEENT: PERRL/EOMI Neck: Non Tender, Supple Respiratory: Chest Non Tender, Lungs Clear, Normal Breath Sounds, No Accessory Muscle Use, No Respiratory Distress Cardiovascular: Regular Rate, Rhythm Gastrointestinal: Non Tender, Soft Rectal: Deferred Back: No CVA Tenderness Extremity: Non Tender, No Calf Tenderness Neurologic/Psychiatric: Alert Skin: Warm/Dry Assessment/Plan Assessment/Plan Assessment/Plan 76 yo M changed to swing bed 10/23/16 c.diff colitis- continue IV metronidazole , PO vanc- urinary retention- catheter; Dr. Ledezma says he may try a minimally invasive procedure in the future- to see if he can help with the retention but we both feel there is a cognitive component that surgery/medicine will not help. Frequent falls and weakness- Patient to work with PT/OT h/o seizures- continue dilantin 100mg, keppra 500mg- COPD- stable- on 2L oxygen prn- no new issues. currently on room air hypokalemia- due to GI losses- replacing - KCl to maintenance fluids hypomagnesemia - replacing prn Dementia with behavioral disturbance- verbal aggression progressing. Depression with behavior/verbal disturbance- will continue to reevaluate medication management. Also the fact that he can not see plays a role in his mood. HTN- resumed his losartan 10/22/16 DVT ppx: lovenox. Dispo: prognosis improving - but [facility]entiary prognosis due to co-morbidities not great- [facility] did not get much accomplished so plan to transfer back there on Thursday10/27/16 -monitor / replace electrolytes over the weekend. Problems: Clinical Quality Measures DVT/VTE Risk/Contraindication: Risk Factor Score Per Nursin BRYANT WAGNER MD Oct 24, 2016 14:18
--- NOTE | 2016-10-24 15:09 | Progress Note-Cardiology ---
Cardiology SOAP Progress Note Subjective: In bed, states he does not feel well in general. No c/o SOB, CP. Objective: I&O/Vital Signs Vital Sign - Last 12Hours 10/24/16 10/24/16 10/24/16 10/24/16 07:00 08:00 08:43 10:53 Temp 97.6 Pulse 79 84 Resp 28 B/P (MAP) 142/68 Pulse Ox 94 94 92 O2 Delivery Room Air Room Air Room Air 10/24/16 10/24/16 10/24/16 11:22 15:34 15:45 Temp 98.3 98.6 Pulse 89 89 Resp 24 20 B/P (MAP) 128/65 154/90 Pulse Ox 89 93 93 O2 Delivery Room Air Room Air Room Air Intake and Output 10/25/16 00:00 Intake Total 1100 ml Output Total 700 ml Balance 400 ml Weight (Pounds): 233 Weight (Ounces): 1.0 Weight (Calculated Kilograms): 105.543215 Respiratory: other (fair air entry) Cardiovascular: regular rate-rhythm, No JVD, S1 and S2, systolic murmur (soft MALCOL[place]) Gastrointestional: tender, round, distended Genital/Rectal: other (scrotal and penile edema) Neurologic/Psychiatric: grossly intact Skin: No ulcerations A/P: Assessment: Septic shock, managed by Med services Tachycardia at presentation: sinus tach vs atrial flutter (treated with iv amidoarone) Echo on 10/21/16: LVEF 60-65%, grade I diastolic dysfunction, PASP approx 30 mmHg UTI, due to pseudomonas C. difficile colitis, managed by Dr. Ham. Metabolic acidosis and lactic acidosis, being managed by the Med and ICU services Hypokalemia, being corrected Dementia, by history History of seizure disorder Plan: Plan: Continue current medication regimen Monitor labs Replace electrolytes Physician Assessment Physician Assessment Not able to provide any meaningful history Lungs: fair air entry, diminished at the bases Cor: reg Ext: no c/c A&R * As documented in our note above that I updated (italics) and as noted below * No new cardiac recs at this time ERNIE JAY QUILL WORKER Oct 24, 2016 15:09 JONA RAGSDALE MD [facility] Oct 24, 2016 18:04
[2016-10-24] MEDS: ALPRAZolam 0.25 MG (XANAX) TAB PO PRN (15:43)
[2016-10-24] MEDS: ALFUZOSIN HCL 10 MG TAB (UROXATRAL) PO SCH (17:37)
[2016-10-24] MEDS: ENOXAPARIN 40 MG/0.4 ML (LOVENOX) SYR SC SCH (18:12)
[2016-10-25] MEDS: DIVALPROX SPRINKLE 125 MG (DEPAKOTE) CAP PO SCH ×3 (05:18→17:49)
[2016-10-25] MEDS: metroNIDAZOLE 500MG/100ML IVPB 100 ML IV SCH ×3 (05:18→20:51)
[2016-10-25] MEDS: VANCOMYCIN ORAL 250 MG/5 ML 60 ML PO SCH ×6 (05:18→17:49)
[2016-10-25] MEDS: LACTOBACILLUS Acidoph/Bulgar (LACTINEX/FLORANEX) TAB PO SCH ×4 (05:19→17:48)
[2016-10-25] MEDS: KCL 20 MEQ TAB (K-DUR) PO SCH ×4 (05:19→20:50)
[2016-10-25] MEDS: ONDANSETRON 4 MG/2 ML (SDV) Z0FRAN IVP PRN ×3 (05:31→20:54)
[2016-10-25 05:48] LABS: BASOPHILS % (AUTO) 0 % (0-10); EOSINOPHILS # (AUTO) 0.2 10^3/uL (0.0-0.3); EOSINOPHILS % (AUTO) 2 % (0-10); LYMPHOCYTES # (AUTO) 1.6 X 10^3 (1.0-4.0); LYMPHOCYTES % (AUTO) 13 % (12-44); MEAN CORPUSCULAR HEMOGLOBIN 29 PG (25-34); MEAN CORPUSCULAR HGB CONC 33 G/DL (32-36); MEAN CORPUSCULAR VOLUME 89 FL (80-99); MEAN PLATELET VOLUME 10.2 FL (7.4-10.4); MONOCYTES # (AUTO) 2.5 X 10^3 (0.0-1.0); MONOCYTES % (AUTO) 20 % (0-12); NEUTROPHILS # (AUTO) 7.9 X 10^3 (1.8-7.8); NEUTROPHILS % (AUTO) 65 % (42-75); PLATELET COUNT 277 10^3/uL (130-400); RED BLOOD COUNT 3.87 10^6/uL (4.35-5.85); RED CELL DISTRIBUTION WIDTH 15.4 % (10.0-14.5); WHITE BLOOD COUNT 12.2 10^3/uL (4.3-11.0)
[2016-10-25 06:00] VITALS: BP 158/83
[2016-10-25 06:11] LABS: ALANINE AMINOTRANSFERASE 8 U/L (0-55); ALBUMIN 2.5 GM/DL (3.2-4.5); ANION GAP 8 MMOL/L (5-14); ASPARTATE AMINO TRANSFERASE 12 U/L (5-34); BILIRUBIN,TOTAL 0.4 MG/DL (0.1-1.0); BLOOD UREA NITROGEN < 2 MG/DL (7-18); BUN/CREATININE RATIO 4; CALCIUM 7.2 MG/DL (8.5-10.1); CARBON DIOXIDE 26 MMOL/L (21-32); CHLORIDE 102 MMOL/L (98-107); CREATININE SERUM 0.48 MG/DL (0.60-1.30); GFR ESTIMATED > 60; GLUCOSE 104 MG/DL (70-105); MAGNESIUM 1.6 MG/DL (1.8-2.4); POTASSIUM 2.8 MMOL/L (3.6-5.0); SODIUM 136 MMOL/L (135-145); TOTAL PROTEIN 4.5 GM/DL (6.4-8.2)
[2016-10-25 06:18] LABS: BAND NEUTROPHILS 3 %; EOSINOPHILS % (MANUAL) 2 %; LYMPHOCYTES % (MANUAL) 14 %; NEUTROPHILS % (MANUAL) 67 %
[2016-10-25] MEDS: RT-ALBUTEROL/IPRATROPIUM 3 ML (DUONEB) VIAL INH SCH ×4 (07:34→19:00)
[2016-10-25] MEDS: LOSARTAN 50 MG (COZAAR) TAB PO SCH (09:54)
[2016-10-25] MEDS: PHENYTOIN 100 MG (DILANTIN) CAP PO SCH ×2 (09:54→20:50)
[2016-10-25] MEDS: LEVETIRACETAM 500 MG (KEPPRA) TAB PO SCH ×2 (09:54→20:51)
[2016-10-25] MEDS: meTOprolol TARTRATE 25 MG (LOPRESSOR) TABLET PO SCH ×2 (09:54→20:51)
[2016-10-25] MEDS: MONTELUKAST 10 MG (SINGULAIR) TAB PO SCH (09:55)
[2016-10-25] MEDS: FAMOTIDINE 20 MG (PEPCID) TABLET PO SCH ×2 (09:55→20:50)
[2016-10-25] MEDS: QUEtiapine 25 MG (SEROquel) TAB IMMEDIATE RELEASE PO SCH ×2 (09:55→20:50)
[2016-10-25] MEDS: SERTRALINE 100 MG (ZOLOFT) TAB PO SCH (09:55)
[2016-10-25] MEDS: ASPIRIN 81 MG CHEW (CHILDREN'S ASA) PO SCH (09:55)
--- NOTE | 2016-10-25 09:57 | Physical Therapy Daily Note ---
PT Daily Note-Current Subjective Pt in bed yelling out "Help me Miguel." Pt answers this MANAGER DIVERSITY but keeps his eyes closed. Pt agreeable to treatment. Pt did not rate pain Mental Status Patient Orientation: Person, Place, Situation Transfers Functional [place] Measure 0=Not Assessed/NA 4=Minimal Assistance 1=Total Assistance 5=Supervision or Setup 2=Maximal Assistance 6=Modified [place] 3=Moderate Assistance 7=Complete IndependenceIRFPAI Quality Coding Scale 6 Independent with activity with or without an assistive device 5 Patient requires set up or clean up by helper. Patient completes activity by themselves 4 Supervision or touching assist (CGA). [place] provide cues , steadying assist 3 The helper provides less than half the effort to complete the activity 2 The helper provides more than half the effort to complete the activity 1 Dependent. The helper does all the effort to complete an activity 7 Patient refused to complete or attempt activity 9 The patient did not perform the activity before the current illness or injury 88 Not attempted due to Medical conditions or safety concerns Treatments Pt seen for PROM (B) LE all joints, all planes. Assessment Current Status: Poor Progress Pt did not participated despite prompting. Pt eyes washed with wet washcloth and pt said "thank you" but did not open eyes. Pt occasionally yells out "help me". Pt present and feels he does not look good. Pt resting in bed with present post therapy. PT Paper Products Machine Operator Goals Paper Products Machine Operator Goals PT Paper Products Machine Operator Goals Time Frame: Oct 31, 2016 Transfers (B,C,W/C) (FIM): 4 Sit to Lying (QC): 3 Lying-Sitting on Side/Bed(QC): 3 Sit to Stand (QC): 3 Rollin Chair/Bzb-ef-Wdgsv Xfer(QC): 3 Does the Patient Walk: Yes Gait (FIM): 1 Gait distance (FIM): 1=up to 49 ft Distance: 15' Gait Assistive Device: FWW PT Plan Treatment/Plan Treatment Plan: Continue Plan of Care Treatment Plan: Bed Mobility, Education, Functional Activity Roberto, Functional Strength, Gait, Safety, Therapeutic Exercise, Transfers Treatment Duration: Oct 31, 2016 Frequency: 6 times per week Estimated Hrs Per Day: .25 hour per day Patient and/or Family Agrees t: Yes Time/GCodes Time In: 900 Time Out: 930 Total Billed Treatment Time: 30 Total Billed Treatment 1, ther ex 30min PIETER,MIRIAN CPTA Oct 25, 2016 09:57
[2016-10-25] MEDS: ALPRAZolam 0.25 MG (XANAX) TAB PO PRN ×2 (10:12→20:51)
[2016-10-25] MEDS: ENOXAPARIN 40 MG/0.4 ML (LOVENOX) SYR SC SCH (17:48)
[2016-10-25] MEDS: ALFUZOSIN HCL 10 MG TAB (UROXATRAL) PO SCH (17:49)
[2016-10-25 18:13] VITALS: BP 146/83
[2016-10-26] MEDS: DIVALPROX SPRINKLE 125 MG (DEPAKOTE) CAP PO SCH ×5 (00:09→16:54)
[2016-10-26] MEDS: VANCOMYCIN ORAL 250 MG/5 ML 60 ML PO SCH ×10 (00:09→16:55)
[2016-10-26] MEDS: LACTOBACILLUS Acidoph/Bulgar (LACTINEX/FLORANEX) TAB PO SCH ×3 (05:38→16:54)
[2016-10-26] MEDS: metroNIDAZOLE 500MG/100ML IVPB 100 ML IV SCH ×3 (05:38→21:07)
[2016-10-26 06:17] VITALS: BP 152/81
[2016-10-26] MEDS: RT-ALBUTEROL/IPRATROPIUM 3 ML (DUONEB) VIAL INH SCH ×4 (07:28→19:42)
[2016-10-26] MEDS: meTOprolol TARTRATE 25 MG (LOPRESSOR) TABLET PO SCH ×2 (08:35→21:06)
[2016-10-26] MEDS: QUEtiapine 25 MG (SEROquel) TAB IMMEDIATE RELEASE PO SCH ×2 (08:35→21:06)
[2016-10-26] MEDS: LEVETIRACETAM 500 MG (KEPPRA) TAB PO SCH ×2 (08:35→21:06)
[2016-10-26] MEDS: PHENYTOIN 100 MG (DILANTIN) CAP PO SCH ×2 (08:36→21:06)
[2016-10-26] MEDS: ALPRAZolam 0.25 MG (XANAX) TAB PO PRN ×2 (08:36→17:40)
[2016-10-26] MEDS: KCL 20 MEQ TAB (K-DUR) PO SCH ×4 (08:36→21:06)
[2016-10-26] MEDS: SERTRALINE 100 MG (ZOLOFT) TAB PO SCH (08:36)
[2016-10-26] MEDS: FAMOTIDINE 20 MG (PEPCID) TABLET PO SCH ×2 (08:36→21:06)
[2016-10-26] MEDS: MONTELUKAST 10 MG (SINGULAIR) TAB PO SCH (08:36)
[2016-10-26] MEDS: LOSARTAN 50 MG (COZAAR) TAB PO SCH (08:36)
[2016-10-26] MEDS: ASPIRIN 81 MG CHEW (CHILDREN'S ASA) PO SCH (08:36)
[2016-10-26 13:59] LABS: ANION GAP 9 MMOL/L (5-14); BLOOD UREA NITROGEN 4 MG/DL (7-18); BUN/CREATININE RATIO 8; CALCIUM 7.4 MG/DL (8.5-10.1); CARBON DIOXIDE 24 MMOL/L (21-32); CHLORIDE 102 MMOL/L (98-107); CREATININE SERUM 0.48 MG/DL (0.60-1.30); GFR ESTIMATED > 60; GLUCOSE 92 MG/DL (70-105); POTASSIUM 3.8 MMOL/L (3.6-5.0); SODIUM 135 MMOL/L (135-145)
--- NOTE | 2016-10-26 14:11 | Progress Note-Hospitalist ---
Standard Progress Note Progress Notes/Assess & Plan Date Seen 10/26/16 Time Seen by Provider: 14:08 Assess & Plan/Chief Complaint The patient is very confused. The jail reports show that he had 13 stools yesterday. He has no opinion about that. The potassium yesterday was 2.8. His oral potassium supplements were increased. His BMP shows the potassium to have climbed to 3.8 today. Questran was added as a thickener for his stools and for the potential of absorbing toxin. Physical exam: Lungs are clear to auscultation. CV was regular. Abdomen was soft and nontender. Impression: Significant diarrhea/C. difficile positive. Plan continue present regimen and add Questran. Labs Laboratory Tests 10/25/16 05:34 10/26/16 13:34 NGUYỄN SMITH MD Oct 26, 2016 14:11
[2016-10-26] MEDS: ACETAMINOPHEN 500 MG TAB (TYLENOL) PO PRN (15:33)
[2016-10-26] MEDS: ALFUZOSIN HCL 10 MG TAB (UROXATRAL) PO SCH (16:54)
[2016-10-26] MEDS: ENOXAPARIN 40 MG/0.4 ML (LOVENOX) SYR SC SCH (16:54)
[2016-10-26] MEDS: ONDANSETRON 4 MG/2 ML (SDV) Z0FRAN IVP PRN (17:40)
[2016-10-26 17:58] VITALS: BP 161/84
[2016-10-26] MEDS: CHOLESTYRAMINE 4 GM (QUESTRAN LITE, PREVALITE) PKT PO SCH (21:06)
[2016-10-27] MEDS: ALPRAZolam 0.25 MG (XANAX) TAB PO PRN ×4 (01:02→23:34)
[2016-10-27] MEDS: VANCOMYCIN ORAL 250 MG/5 ML 60 ML PO SCH ×10 (01:02→23:34)
[2016-10-27] MEDS: ONDANSETRON 4 MG/2 ML (SDV) Z0FRAN IVP PRN ×2 (01:02→13:51)
[2016-10-27] MEDS: DIVALPROX SPRINKLE 125 MG (DEPAKOTE) CAP PO SCH ×5 (01:02→23:34)
[2016-10-27 06:23] VITALS: BP 158/82
[2016-10-27] MEDS: metroNIDAZOLE 500MG/100ML IVPB 100 ML IV SCH ×2 (06:43→13:52)
[2016-10-27] MEDS: LACTOBACILLUS Acidoph/Bulgar (LACTINEX/FLORANEX) TAB PO SCH ×3 (06:44→16:11)
[2016-10-27] MEDS: RT-ALBUTEROL/IPRATROPIUM 3 ML (DUONEB) VIAL INH SCH ×4 (07:45→19:04)
[2016-10-27] MEDS: QUEtiapine 25 MG (SEROquel) TAB IMMEDIATE RELEASE PO SCH ×2 (09:01→21:17)
[2016-10-27] MEDS: CHOLESTYRAMINE 4 GM (QUESTRAN LITE, PREVALITE) PKT PO SCH ×2 (09:01→21:17)
[2016-10-27] MEDS: ASPIRIN 81 MG CHEW (CHILDREN'S ASA) PO SCH (09:02)
[2016-10-27] MEDS: PHENYTOIN 100 MG (DILANTIN) CAP PO SCH ×2 (09:02→21:17)
[2016-10-27] MEDS: FAMOTIDINE 20 MG (PEPCID) TABLET PO SCH ×2 (09:02→21:17)
[2016-10-27] MEDS: MONTELUKAST 10 MG (SINGULAIR) TAB PO SCH (09:02)
[2016-10-27] MEDS: LEVETIRACETAM 500 MG (KEPPRA) TAB PO SCH ×2 (09:02→21:17)
[2016-10-27] MEDS: SERTRALINE 100 MG (ZOLOFT) TAB PO SCH (09:02)
[2016-10-27] MEDS: KCL 20 MEQ TAB (K-DUR) PO SCH ×4 (09:02→21:17)
[2016-10-27] MEDS: meTOprolol TARTRATE 25 MG (LOPRESSOR) TABLET PO SCH ×2 (09:04→21:17)
[2016-10-27] MEDS: LOSARTAN 50 MG (COZAAR) TAB PO SCH (09:04)
--- NOTE | 2016-10-27 09:11 | Cardiology Progress Note ---
Subjective Date Seen by Provider: Oct 27, 2016 Time Seen by Provider: 09:09 Subjective/Events-last exam Patient in bed. Denies any CP or dyspnea. Review of Systems General: No Chills, No Night Sweats, Fatigue, Malaise, No Appetite, No Other HEENT: No Visual Changes, No Dysphasia Pulmonary: No Dyspnea, No Cough Cardiovascular: No: Chest Pain, Palpitations Gastrointestinal: No: Nausea, Vomiting, Abdominal Pain Genitourinary: No Dysuria, No Frequency Musculoskeletal: No: neck pain Neurological: Weakness Objective-Cardiology Exam Last Set of Vital Signs Vital Signs 10/23/16 10/27/16 14:47 06:23 Temp 98.9 Pulse 92 Resp 18 B/P (MAP) 158/82 Pulse Ox 94 O2 Delivery Room Air O2 Flow Rate 2.00 Capillary Refill : I&O Intake and Output 10/28/16 00:00 Intake Total 300 ml Output Total 950 ml Balance -650 ml Intake Oral 300 ml Output Urine Total 950 ml General: Alert, No Acute Distress Neck: Supple, No JVD Lungs: Clear to Auscultation, Normal Air Movement Heart: Regular Rate, Normal S1, Normal S2 Abdomen: Normal Bowel Sounds, Soft Extremities: No Edema Skin: No Rashes, No Significant Lesion Neuro: Normal Speech Psych/Mental Status: Mental Status NL, Mood NL Results Lab Laboratory Tests 10/26/16 13:34 A/P-Cardiology Admission Diagnosis Tachycardia Septic shock UTI C-diff Assessment/Plan Septic shock, managed by Med services, improving. Tachycardia at presentation: sinus tach vs atrial flutter (treated with iv amidoarone). Currently SR. Continue to monitor. Echo on 10/21/16: LVEF 60-65%, grade I diastolic dysfunction, PASP approx 30 mmHg UTI, due to pseudomonas, management by medical services. C. difficile colitis, managed by Dr. Ham. Metabolic acidosis and lactic acidosis, being managed by the Med and ICU services Hypokalemia, replaced, improved. Continue to monitor. Hypomagnesemia- recheck lab, replace if needed. Dementia, by history History of seizure disorder Clinical Quality Measures DVT/VTE Risk/Contraindication: Risk Factor Score Per Nursin JEF BUTTS Oct 27, 2016 09:11
--- NOTE | 2016-10-27 09:27 | Cardiology Progress Note ---
Subjective Date Seen by Provider: Oct 27, 2016 Time Seen by Provider: 09:23 Subjective/Events-last exam patient is laying down in bed, still confused, complaining of generalized body ache and lethargic and fatigue. Review of Systems General: No Chills, No Night Sweats, No Fatigue, No Malaise, No Appetite, No Other HEENT: No Head Aches, No Visual Changes, No Eye Pain, No Ear Pain, No Dysphasia , No Sinus Congestion, No Post Nasal Drip, No Sore Throat, No Other Pulmonary: No Dyspnea, No Cough, No Pleuritic Chest Pain, No Other Cardiovascular: Edema, No: Chest Pain, Palpitations, Orthopnea, Paroxysmal Noc. Dyspnea, Lt Headedness, Other Objective-Cardiology Exam Last Set of Vital Signs Vital Signs 10/23/16 10/27/16 14:47 06:23 Temp 98.9 Pulse 92 Resp 18 B/P (MAP) 158/82 Pulse Ox 94 O2 Delivery Room Air O2 Flow Rate 2.00 Capillary Refill : I&O Intake and Output 10/28/16 00:00 Intake Total 300 ml Output Total 950 ml Balance -650 ml Intake Oral 300 ml Output Urine Total 950 ml General: Alert, No Acute Distress Neck: Supple, No JVD Lungs: Clear to Auscultation, Normal Air Movement Heart: Regular Rate, Normal S1, Normal S2 Abdomen: Normal Bowel Sounds, Soft Extremities: Other (mild pedal edema) Skin: No Rashes, No Significant Lesion Neuro: Normal Speech Psych/Mental Status: Mental Status NL, Mood NL Results Lab Laboratory Tests 10/26/16 13:34 A/P-Cardiology Admission Diagnosis Tachycardia Septic shock UTI C-diff Assessment/Plan Status post septic shock, managed by Med services, improving. C. difficile colitis, still in isolation, managed by Dr. Hma Tachycardia at presentation: sinus tach vs atrial flutter (treated with iv amidoarone). improved after starting beta blockers, we'll increase Lopressor to 25 mg twice daily and monitor her tolerance and response. Hypertension, status post hypotension, restarted on losartan and Lopressor, I will decrease his Lopressor dose and monitor tolerance and response Echo on 10/21/16: LVEF 60-65%, grade I diastolic dysfunction, PASP approx 30 mmHg , continue to monitor UTI, due to pseudomonas, management by medical services. Metabolic acidosis and lactic acidosis, being managed by the Med and ICU services Hypokalemia, replaced, improved. Continue to monitor. Hypomagnesemia- recheck lab, replace if needed. Dementia, by history History of seizure disorder Clinical Quality Measures DVT/VTE Risk/Contraindication: Risk Factor Score Per Nursin KESHAV DERAS MD Oct 27, 2016 09:27
--- NOTE | 2016-10-27 11:03 | Occupational Ther Daily Note ---
OT Current Status-Daily Note Subjective Pt seen in room, up in bed. Yells out, "Help me. help me." but, when questioned , doesn't know what he wants. Appearance Confused Mental Status/Objective Functional [place] Measure 0=Not Assessed/NA 4=Minimal Assistance 1=Total Assistance 5=Supervision or Setup 2=Maximal Assistance 6=Modified [place] 3=Moderate Assistance 7=Complete [place] ADL-Treatment Pt needed assist to get food to hand (torres) but could get food to mouth ( vision is limited). With placing can in his hand, he could take a drink from a straw. Maximum encouragement needed. Nursing reported that they have been using a bedpan with him for BM because his transfers have been unsafe but he has generally been incontinent. Esteban in place Other Treatment Pt's R hand is edematous but he refused to move it more than once or twice. R hand left fisted on chest. Pt yelled to leave him alone. Pt left up in bed, telesitter present, call light present, 4 rails up. OT Short Term Goals Short Term Goals 1=Demonstrate adherence to instructed precautions during ADL tasks. 2=Patient will verbalize/demonstrate understanding of assistive devices/ modifications for ADL. 3=Patient will improve strength/tolerance for activity to enable patient to perform ADL's. OT Molder Hand Goals Fdc Goals Time Frame: Nov 06, 2016 Eating (FIM): 5 Grooming(FIM): 4 Toileting(FIM): 4 Transfers (B,C,W/C) (FIM): 4 Toilet/Commode Transfer(FIM): 4 Additional Goals: 1-Demonstrate ADL Tasks, 2-Verbalize Understanding, 3- ImproveStrength/Roberto 1=Demonstrate adherence to instructed precautions during ADL tasks. 2=Patient will verbalize/demonstrate understanding of assistive devices/ modifications for ADL. 3=Patient will improve strength/tolerance for activity to enable patient to perform ADL's. OT Education/Plan Discharge Recommendations Plan/Recommendations: Continue POC Treatment Plan/Plan of Care Patient would benefit from OT for education, treatment and training to promote independence in ADL's, mobility, safety and/or upper extremity function for ADL' s. Plan of Care: ADL Retraining, Caregiver Training, Cognitive Retraining, Functional Mobility, UE Funct Exercise/Act Treatment Duration: Nov 06, 2016 Frequency: 5 times per week Estimated Hrs Per Day: .5 hour per day Agreement: Yes Rehab Potential: Guarded Time/GCodes Start Time: 10:20 Stop Time: 10:35 Total Time Billed (hr/min): 15 Billed Treatment Time visit, 15 minutes PRIETO HOPKINS OT Oct 27, 2016 11:02
--- NOTE | 2016-10-27 11:44 | Physical Therapy Daily Note ---
PT Daily Note-Current Subjective Patient is confused and yelling "Help me." Spouse is present and steps out. Pain Numeric Pain Scale: 0-No Pain Location: No Pain Reported Mental Status Patient Orientation: Confused Attachments: Esteban Catheter Transfers Functional [place] Measure 0=Not Assessed/NA 4=Minimal Assistance 1=Total Assistance 5=Supervision or Setup 2=Maximal Assistance 6=Modified [place] 3=Moderate Assistance 7=Complete IndependenceIRFPAI Quality Coding Scale 6 Independent with activity with or without an assistive device 5 Patient requires set up or clean up by helper. Patient completes activity by themselves 4 Supervision or touching assist (CGA). [place] provide cues , steadying assist 3 The helper provides less than half the effort to complete the activity 2 The helper provides more than half the effort to complete the activity 1 Dependent. The helper does all the effort to complete an activity 7 Patient refused to complete or attempt activity 9 The patient did not perform the activity before the current illness or injury 88 Not attempted due to Medical conditions or safety concerns Transfers (B, C, W/C) (FIM): 2 Scootin Roll Left to Right (QC): 2 Supine to/from Sit: 2 Sit to/from Stand: 2 Sit to Lying (QC): 2 Sit to Stand (QC): 2 Chair/Lfc-ix-Xwrbc Xfer(QC): 2 Bed to/from Chair: 2 max assist with all mobility in bed and to commode with dependent assist to cleanse after BM Assessment Patient returned to bed dependent assist with pillow repositioning to sidelying right. MATERIAL ASSEMBLER in for assistance. PT Ladle Cleaner Goals Ladle Cleaner Goals PT Retirement Goals Time Frame: Oct 31, 2016 Transfers (B,C,W/C) (FIM): 4 Sit to Lying (QC): 3 Lying-Sitting on Side/Bed(QC): 3 Sit to Stand (QC): 3 Rollin Chair/Jyy-yw-Ffslr Xfer(QC): 3 Does the Patient Walk: Yes Gait (FIM): 1 Gait distance (FIM): 1=up to 49 ft Distance: 15' Gait Assistive Device: FWW PT Plan Treatment/Plan Treatment Plan: Continue Plan of Care Treatment Plan: Bed Mobility, Education, Functional Activity Roberto, Functional Strength, Gait, Safety, Therapeutic Exercise, Transfers Treatment Duration: Oct 31, 2016 Frequency: 6 times per week Estimated Hrs Per Day: .25 hour per day Patient and/or Family Agrees t: Yes Time/GCodes Time In: 1040 Time Out: 1055 Total Billed Treatment Time: 15 Total Billed Treatment 1 visit FA 15 min TANG RODRIGUEZ PT Oct 27, 2016 11:44
[2016-10-27] MEDS: ACETAMINOPHEN 500 MG TAB (TYLENOL) PO PRN (13:52)
[2016-10-27 18:14] VITALS: BP 162/84
[2016-10-27] MEDS: ENOXAPARIN 40 MG/0.4 ML (LOVENOX) SYR SC SCH (18:15)
[2016-10-27] MEDS: ALFUZOSIN HCL 10 MG TAB (UROXATRAL) PO SCH (18:15)
[2016-10-27] MEDS: metroNIDAZOLE 500 MG (FLAGYL) TAB PO SCH (21:17)
[2016-10-28] MEDS: DIVALPROX SPRINKLE 125 MG (DEPAKOTE) CAP PO SCH (05:31)
[2016-10-28] MEDS: LACTOBACILLUS Acidoph/Bulgar (LACTINEX/FLORANEX) TAB PO SCH (05:31)
[2016-10-28] MEDS: VANCOMYCIN ORAL 250 MG/5 ML 60 ML PO SCH ×2 (05:31)
[2016-10-28 05:49] LABS: MEAN PLATELET VOLUME 9.3 FL (7.4-10.4); RED BLOOD COUNT 3.79 10^6/uL (4.35-5.85); RED CELL DISTRIBUTION WIDTH 16.3 % (10.0-14.5); WHITE BLOOD COUNT 19.2 10^3/uL (4.3-11.0)
[2016-10-28 06:23] LABS: ALANINE AMINOTRANSFERASE 6 U/L (0-55); ALBUMIN 2.7 GM/DL (3.2-4.5); ANION GAP 9 MMOL/L (5-14); ASPARTATE AMINO TRANSFERASE 10 U/L (5-34); BILIRUBIN,TOTAL 0.3 MG/DL (0.1-1.0); BLOOD UREA NITROGEN 3 MG/DL (7-18); BUN/CREATININE RATIO 6; CALCIUM 7.8 MG/DL (8.5-10.1); CARBON DIOXIDE 24 MMOL/L (21-32); CHLORIDE 100 MMOL/L (98-107); CREATININE SERUM 0.52 MG/DL (0.60-1.30); GFR ESTIMATED > 60; GLUCOSE 93 MG/DL (70-105); MAGNESIUM 1.5 MG/DL (1.8-2.4); POTASSIUM 4.4 MMOL/L (3.6-5.0); SODIUM 133 MMOL/L (135-145); TOTAL PROTEIN 4.8 GM/DL (6.4-8.2)
[2016-10-28 06:36] VITALS: BP 135/76
[2016-10-28] MEDS: RT-ALBUTEROL/IPRATROPIUM 3 ML (DUONEB) VIAL INH SCH ×2 (06:42→10:52)
--- NOTE | 2016-10-28 08:21 | Cardiology Progress Note ---
Subjective Date Seen by Provider: Oct 28, 2016 Time Seen by Provider: 08:20 Subjective/Events-last exam Patient asleep, easily awakens to answer questions. Denies any CP or dyspnea. Review of Systems General: No Night Sweats, No Fatigue, No Malaise HEENT: No Visual Changes, No Dysphasia Pulmonary: No Dyspnea, No Cough Cardiovascular: No: Chest Pain, Palpitations, Paroxysmal Noc. Dyspnea, Edema Gastrointestinal: No: Nausea, Vomiting, Abdominal Pain Genitourinary: No Dysuria, No Frequency Musculoskeletal: No: neck pain, back pain Neurological: No: Weakness, Numbness, Change in speech, Confusion Objective-Cardiology Exam Last Set of Vital Signs Vital Signs 10/23/16 10/28/16 10/28/16 14:47 06:36 06:42 Temp 98.1 Pulse 84 Resp 18 B/P (MAP) 135/76 Pulse Ox 90 O2 Delivery Room Air O2 Flow Rate 2.00 Capillary Refill : I&O Intake and Output 10/29/16 00:00 Intake Total 600 ml Output Total 550 ml Balance 50 ml Intake Oral 600 ml Output Urine Total 550 ml # Bowel Movements 3 General: Alert, No Acute Distress Neck: Supple, No JVD Lungs: Clear to Auscultation, Normal Air Movement Heart: Regular Rate, Normal S1, Normal S2 Abdomen: Normal Bowel Sounds, Soft Extremities: Other (mild pedal edema) Skin: No Rashes, No Significant Lesion Neuro: Normal Speech Psych/Mental Status: Mental Status NL, Mood NL Results Lab Laboratory Tests 10/28/16 05:37 A/P-Cardiology Admission Diagnosis Tachycardia Septic shock UTI C-diff Assessment/Plan Status post septic shock, managed by Med services, improving. C. difficile colitis, still in isolation, managed by Dr. Ham Tachycardia at presentation: sinus tach vs atrial flutter (treated with iv amidoarone). improved after starting beta blockers, continue to monitor his tolerance and response. Hypertension, status post hypotension, restarted on losartan and Lopressor, blood pressure well controlled. Continue to monitor. Echo on 10/21/16: LVEF 60-65%, grade I diastolic dysfunction, PASP approx 30 mmHg , continue to monitor UTI, due to pseudomonas, management by medical services. Metabolic acidosis and lactic acidosis, being managed by the Med and ICU services Hypokalemia, replaced, improved. Continue to monitor. Hypomagnesemia- replace, continue to monitor. Dementia, by history History of seizure disorder Clinical Quality Measures DVT/VTE Risk/Contraindication: Risk Factor Score Per Nursin JEF BUTTS Oct 28, 2016 08:21
[2016-10-28] MEDS ORDERED: METR500T21 PO (08:22)
--- NOTE | 2016-10-28 08:27 | Discharge Inst-Skilled Nursing ---
Discharge Inst-Skilled NF Chief Complaint diarrhea Patient Instructions Patient Problems: c. diff colitis- improved keep in contact isolation until patient has completed course of metronidazole and vancomycin - has 6 days remaining. weakness- work with PT/OT Consult/Follow Up/Orders Follow Up Appt.: follow up with Dr Oliver Wagner in 2 weeks Skilled NF Admit to: [facility] Certification (SNF) I certify that SNF services are required to be given on an inpatient basis because of the above named patient's need for usp care on a continuing basis for the conditions(s) for which he/she was receiving inpatient hospital services prior to his/her transfer to the SNF. Snf Facility Order: Nursing Services, Rotary Surface Grinder-Evaluate & Treat, Physical Therapy-Evaluate & Treat Discharge Diet: Regular Diet Daily Activity as Tolerated: Yes New & Resume Previous Orders New & Resume Previous Orders resume previous orders see med rec for medication changes- primarily- vancomycin, metronidazole Oliver Wagner Oct 28, 2016 08:25 OLIVER WAGNER MD Oct 28, 2016 08:27
[2016-10-28] MEDS ORDERED: MAGNESIUM 1 GM/100 ML IVPB 100 ML IV NR (08:30)
[2016-10-28] MEDS ORDERED: VANC125C4 PO (08:32)
[2016-10-28] MEDS: CHOLESTYRAMINE 4 GM (QUESTRAN LITE, PREVALITE) PKT PO SCH (09:09)
[2016-10-28] MEDS: LEVETIRACETAM 500 MG (KEPPRA) TAB PO SCH (09:10)
[2016-10-28] MEDS: metroNIDAZOLE 500 MG (FLAGYL) TAB PO SCH (09:10)
[2016-10-28] MEDS: FAMOTIDINE 20 MG (PEPCID) TABLET PO SCH (09:10)
[2016-10-28] MEDS: SERTRALINE 100 MG (ZOLOFT) TAB PO SCH (09:10)
[2016-10-28] MEDS: QUEtiapine 25 MG (SEROquel) TAB IMMEDIATE RELEASE PO SCH (09:10)
[2016-10-28] MEDS: PHENYTOIN 100 MG (DILANTIN) CAP PO SCH (09:10)
[2016-10-28] MEDS: LOSARTAN 50 MG (COZAAR) TAB PO SCH (09:10)
[2016-10-28] MEDS: MONTELUKAST 10 MG (SINGULAIR) TAB PO SCH (09:10)
[2016-10-28] MEDS: ASPIRIN 81 MG CHEW (CHILDREN'S ASA) PO SCH (09:10)
[2016-10-28] MEDS: KCL 20 MEQ TAB (K-DUR) PO SCH (09:10)
[2016-10-28] MEDS: meTOprolol TARTRATE 25 MG (LOPRESSOR) TABLET PO SCH (09:10)
--- NOTE | 2016-10-28 09:45 | Therapy Team Discharge Summary ---
Therapy Discharge Summary Discharge Recommendations Date of Discharge Therapy D/C Recommendations: 24 hr Supervision Physical Therapy Patient to dismiss to [place] on this date for continued care. Patient continues to be dependent assist with all gross motor skills and ADL's. Goals not attained. PT Veneer Puller Goals Veneer Puller Goals PT Veneer Puller Goals Time Frame: Oct 31, 2016 Transfers (B,C,W/C) (FIM): 4 Sit to Lying (QC): 3 Lying-Sitting on Side/Bed(QC): 3 Sit to Stand (QC): 3 Rollin Chair/Caf-ou-Ejqgn Xfer(QC): 3 Does the Patient Walk: Yes Gait (FIM): 1 Gait distance (FIM): 1=up to 49 ft Distance: 15' Gait Assistive Device: FWW OT Veneer Puller Goals Mcfp Goals Time Frame: Nov 06, 2016 Eating (FIM): 5 Eating (QC): 5 Groomin Oral Hygiene (QC): 4 Toileting(FIM): 4 Toileting Hygiene (QC): 4 Transfers (B,C,W/C) (FIM): 4 Toilet/Commode Transfer(FIM): 4 Toilet/Commode Transfer (QC): 4 Additional Goals: 1-Demonstrate ADL Tasks, 2-Verbalize Understanding, 3- ImproveStrength/Roberto 1=Demonstrate adherence to instructed precautions during ADL tasks. 2=Patient will verbalize/demonstrate understanding of assistive devices/ modifications for ADL. 3=Patient will improve strength/tolerance for activity to enable patient to perform ADL's. TANG RODRIGUEZ PT Oct 28, 2016 09:45
--- NOTE | 2016-10-28 10:21 | Occupational Ther Daily Note ---
OT Current Status-Daily Note Subjective Pt seen in room, up in bed, asleep. Could not wake him to brush teeth but he would talk to OT and say, "Not today. Leave me alone". No pain reported. Mental Status/Objective Functional [place] Measure 0=Not Assessed/NA 4=Minimal Assistance 1=Total Assistance 5=Supervision or Setup 2=Maximal Assistance 6=Modified [place] 3=Moderate Assistance 7=Complete [place] ADL-Treatment Functional [place] Measure 0=Not Assessed/NA 4=Minimal Assistance 1=Total Assistance 5=Supervision or Setup 2=Maximal Assistance 6=Modified [place] 3=Moderate Assistance 7=Complete IndependenceIRFPAI Quality Coding Scale 6 Independent with activity with or without an assistive device 5 Patient requires set up or clean up by helper. Patient completes activity by themselves 4 Supervision or touching assist (CGA). [place] provide cues , steadying assist 3 The helper provides less than half the effort to complete the activity 2 The helper provides more than half the effort to complete the activity 1 Dependent. The helper does all the effort to complete an activity 7 Patient refused to complete or attempt activity 9 The patient did not perform the activity before the current illness or injury 88 Not attempted due to Medical conditions or safety concerns Eating (FIM): 2 (Confirmed with nursing, pt is able to feed himself some finger foods but needs help to find the food and place it in his hand. He can usually get finger food to his mouth but sometimes needs help. He can get a drink but needs help to find class and often to hold it and palce straw. He has decreased vision. He is generally unable to scoop or stab food because he can't find it) Eating (QC): 2 Grooming (FIM): 1 (Pt refused to brush his teeth or wash his face today. Nursing reported that he is total care with grooming and does not initiate tasks. ) Oral Hygiene (QC): 1 (Total care per nursing) Toileting (FIM): 1 (He needs two and sometimes three people to help with toileting, including clothing management and hygiene) Toileting Hygiene (QC): 1 Toilet/Commode Transfer (FIM): 1 (Requires two and sometimes three people to transfer on and off BSC) Toilet Transfer (QC): 1 Pt left up in bed, 4 rails up, bed alarm on and telesitter in place. Pt to be discharged to [facility] today. OT Short Term Goals Short Term Goals 1=Demonstrate adherence to instructed precautions during ADL tasks. 2=Patient will verbalize/demonstrate understanding of assistive devices/ modifications for ADL. 3=Patient will improve strength/tolerance for activity to enable patient to perform ADL's. OT Guard Captain Goals Snf Goals Time Frame: Nov 06, 2016 Eating (FIM): 5 (not met 10-28-16) Eating (QC): 5 (not met 10-28-16) Groomin (not met 10-28-16) Oral Hygiene (QC): 4 (not met 10-28-16) Toileting(FIM): 4 (not met 10-28-16) Toileting Hygiene (QC): 4 (not met 10-28-16) Transfers (B,C,W/C) (FIM): 4 (not met 10-28-16) Toilet/Commode Transfer(FIM): 4 (not met 10-28-16) Toilet/Commode Transfer (QC): 4 (not met 10-28-16) Additional Goals: 1-Demonstrate ADL Tasks, 2-Verbalize Understanding, 3- ImproveStrength/Roberto 1=Demonstrate adherence to instructed precautions during ADL tasks. 2=Patient will verbalize/demonstrate understanding of assistive devices/ modifications for ADL. 3=Patient will improve strength/tolerance for activity to enable patient to perform ADL's. OT Education/Plan Discharge Recommendations Plan/Recommendations: Discharge/Goals Met (see tx plan for specifics) Treatment Plan/Plan of Care Patient would benefit from OT for education, treatment and training to promote independence in ADL's, mobility, safety and/or upper extremity function for ADL' s. Plan of Care: ADL Retraining, Caregiver Training, Cognitive Retraining, Functional Mobility, UE Funct Exercise/Act Treatment Duration: Nov 06, 2016 Frequency: 5 times per week Estimated Hrs Per Day: .5 hour per day Agreement: Yes Rehab Potential: Guarded Time/GCodes Start Time: 10:05 Stop Time: 10:15 Total Time Billed (hr/min): 10 Billed Treatment Time visit, 10 minutes ADL PRIETO ARIZA OT Oct 28, 2016 10:21
--- NOTE | 2016-10-28 10:27 | Therapy Team Discharge Summary ---
Therapy Discharge Summary Discharge Recommendations Date of Discharge October 28, 2016 Therapy D/C Recommendations: 24 hr Supervision Occupational Therapy Pt seen for skilled OT to increase his independence in basic self care and to decrease caregiver burden. On admission he needed max assist to eat and was dependant with toileting and toilet transfers. On discharge he still needs max assist to eat (limited by decreases vision), was dependant with grooming and was dependant with toileting and toilet transfers, sometimes requiring 2-3 people for safety. See tx plan for goals met. DC OT PT Residential Goals Residential Goals PT Residential Goals Time Frame: Oct 31, 2016 Transfers (B,C,W/C) (FIM): 4 Sit to Lying (QC): 3 Lying-Sitting on Side/Bed(QC): 3 Sit to Stand (QC): 3 Rollin Chair/Frc-fe-Anckj Xfer(QC): 3 Does the Patient Walk: Yes Gait (FIM): 1 Gait distance (FIM): 1=up to 49 ft Distance: 15' Gait Assistive Device: FWW OT Ladle Liner Helper Goals Residential Goals Time Frame: Nov 06, 2016 Eating (FIM): 5 (not met -19-17) Eating (QC): 5 (not met -19-17) Groomin (not met --17) Oral Hygiene (QC): 4 (not met --17) Toileting(FIM): 4 (not met -19-17) Toileting Hygiene (QC): 4 (not met -19-17) Transfers (B,C,W/C) (FIM): 4 (not met --17) Toilet/Commode Transfer(FIM): 4 (not met -19-17) Toilet/Commode Transfer (QC): 4 (not met -19-17) Additional Goals: 1-Demonstrate ADL Tasks, 2-Verbalize Understanding, 3- ImproveStrength/Roberto 1=Demonstrate adherence to instructed precautions during ADL tasks. 2=Patient will verbalize/demonstrate understanding of assistive devices/ modifications for ADL. 3=Patient will improve strength/tolerance for activity to enable patient to perform ADL's. PRIETO ARIZA OT Oct 28, 2016 10:27
--- NOTE | 2016-10-29 09:18 | Discharge Summary ---
Diagnosis/Chief Complaint Date of Admission Oct 23, 2016 at 08:25 Date of Discharge Oct 28, 2016 at 11:36 Discharge Date: Oct 28, 2016 Reason Hospital Visit 76 yo M admitted to swing bed due to continued issues with weakness and clostridium difficule colitis. He was still requiring IV metronidazole. Discharge Summary Hospital Course Labs Laboratory Tests 10/26/16 13:34: Blood Urea Nitrogen 4L, Creatinine 0.48L, Calcium Level 7.4L 10/28/16 05:37: Blood Urea Nitrogen 3L, Creatinine 0.52L, Calcium Level 7.8L, White Blood Count 19.2H, Red Blood Count 3.79L, Hemoglobin 11.1L, Hematocrit 34L, Red Cell Distribution Width 16.3H, Sodium Level 133L, Magnesium Level 1.5L, Total Protein 4.8L, Albumin 2.7L Procedures None. Discharge Physical Examination Allergies: Coded Allergies: No Known Drug Allergies (Unverified , 09/01/16) Vitals & I&Os Vital Signs Date Time Temp Pulse Resp B/P (MAP) Pulse Ox O2 Delivery O2 Flow Rate FiO2 10/28/16 11:36 10/28/16 06:42 90 Room Air 10/28/16 06:36 98.1 84 18 10/23/16 14:47 2.00 Discharge Home Medications Reviewed and agree with Discharge Medication list on patient's Discharge Instruction sheet Instructions to Patient/Family Please see electronic discharge instructions given to patient. Clinical Quality Measures DVT/VTE Risk/Contraindication: Risk Factor Score Per Nursin BRYANT WAGNER MD Oct 29, 2016 09:18
== END 2016-10-28 11:36 | DRG 871 ==
LOC: 4TH 08:25
PROVIDERS: ADMIT Family Medicine; ATTEND Family Medicine
DX: A41.89 Other specified sepsis (principal); A04.7 Enterocolitis due to Clostridium difficile; R65.21 Severe sepsis with septic shock; N39.0 Urinary tract infection, site not specified; B96.5 Pseudomonas (aeruginosa) (mallei) (pseudomallei) as the cause of diseases classified elsewhere; I48.92 Unspecified atrial flutter; E87.4 Mixed disorder of acid-base balance; R33.9 Retention of urine, unspecified; Z66 Do not resuscitate; G20 Parkinson's disease; F02.81 Dementia in other diseases classified elsewhere, unspecified severity, with behavioral disturbance; J44.9 Chronic obstructive pulmonary disease, unspecified; G40.909 Epilepsy, unspecified, not intractable, without status epilepticus; I25.10 Atherosclerotic heart disease of native coronary artery without angina pectoris; I10 Essential (primary) hypertension; R53.1 Weakness; E87.6 Hypokalemia; E83.42 Hypomagnesemia; F32.9 Major depressive disorder, single episode, unspecified; F41.9 Anxiety disorder, unspecified; H91.90 Unspecified hearing loss, unspecified ear; H54.3 Unqualified visual loss, both eyes; E66.9 Obesity, unspecified; R29.6 Repeated falls; Z68.33 Body mass index [BMI] 33.0-33.9, adult; Z86.73 Personal history of transient ischemic attack (TIA), and cerebral infarction without residual deficits; Z95.5 Presence of coronary angioplasty implant and graft; Z87.891 Personal history of nicotine dependence
CPT/HCPCS: 36415; 80048; 80053; 83735; 85007; 85027; 94640; 94760

== ENCOUNTER → 2016-11-23 | Outpatient (CLI) | payer MEDICARE ==
[~2016-11-23] MED LIST changes: +VANC125C4 PO
--- NOTE | 2016-11-25 08:57 | Physician Query-Final Dx ---
VICKIE SHARIF 11/25/16 0857: Clinic Account Progress/Dx Physician Query: Please give diagnosis need dx for C-Diff test Date of Service Nov 23, 2016 at 14:26 BRYANT WAGNER MD 11/25/16 0903: Clinic Account Progress/Dx Physician Query: Please give diagnosis DIAGNOSIS: Diagnosis A04.7 Enterocolitis due to Clostridium difficile VICKIE SHARIF Nov 25, 2016 08:57 BRYANT WAGNER MD Nov 25, 2016 09:03
== END ==
PROVIDERS: ATTEND Family Medicine
DX: A04.72 Enterocolitis due to Clostridium difficile, not specified as recurrent (principal)
CPT/HCPCS: 87449

== ENCOUNTER 2017-04-06 11:38 | Emergency (ER) | payer MEDICARE ==
[~2017-04-06] VITALS: Ht 177.8 cm; Wt 105.7 kg
[~2017-04-06 11:38] MED LIST changes: +ACHD5005 PO; -HYDR-3812 PO
[2017-04-06 12:19] LABS: BILIRUBIN,URINE NEGATIVE (NEGATIVE); CLARITY,URINE CLEAR; COLOR,URINE YELLOW; GLUCOSE, URINE (UA) NEGATIVE (NEGATIVE); KETONES,URINE NEGATIVE (NEGATIVE); LEUKOCYTE ESTERASE ,URINE NEGATIVE (NEGATIVE); NITRITE,URINE NEGATIVE (NEGATIVE); PH,URINE 5 (5-9); PROTEIN,URINE NEGATIVE (NEGATIVE); UROBILINOGEN,URINE NORMAL (NORMAL)
[2017-04-06 12:28] LABS: BACTERIA,URINE NEGATIVE /HPF
[2017-04-06 12:51] LABS: BASOPHILS # (AUTO) 0.1 10^3/uL (0.0-0.1); BASOPHILS % (AUTO) 0 % (0-10); EOSINOPHILS # (AUTO) 0.5 10^3/uL (0.0-0.3); EOSINOPHILS % (AUTO) 5 % (0-10); HEMATOCRIT 45 % (40-54); HEMOGLOBIN 15.1 G/DL (13.3-17.7); LYMPHOCYTES # (AUTO) 1.3 X 10^3 (1.0-4.0); LYMPHOCYTES % (AUTO) 11 % (12-44); MEAN CORPUSCULAR HEMOGLOBIN 32 PG (25-34); MEAN CORPUSCULAR HGB CONC 34 G/DL (32-36); MEAN CORPUSCULAR VOLUME 93 FL (80-99); MEAN PLATELET VOLUME 9.5 FL (7.4-10.4); MONOCYTES # (AUTO) 1.1 X 10^3 (0.0-1.0); MONOCYTES % (AUTO) 9 % (0-12); NEUTROPHILS # (AUTO) 8.6 X 10^3 (1.8-7.8); NEUTROPHILS % (AUTO) 75 % (42-75); PLATELET COUNT 198 10^3/uL (130-400); RED CELL DISTRIBUTION WIDTH 13.8 % (10.0-14.5); WHITE BLOOD COUNT 11.6 10^3/uL (4.3-11.0)
[2017-04-06] MEDS ORDERED: NS IV 1000 ML 1,000 ML IV ONE (12:54)
--- NOTE | 2017-04-06 12:56 | Diagnostic Imaging Report ---
INDICATION: Seizure-like activity. COMPARISON: 10/23/2016 FINDINGS: Single frontal view of the chest demonstrates normal heart size and pulmonary vascularity. The lungs show low inspiratory volumes, but are otherwise clear. No large pleural effusion or pneumothorax is seen. The visualized osseous structures show no acute abnormalities. IMPRESSION: 1. Low lung volumes, but otherwise no acute cardiopulmonary process. Dictated by: Dictated on workstation # [id number]
[2017-04-06 13:01] LABS: INR 1.1 (0.8-1.4); PROTHROMBIN TIME PATIENT 14.5 SEC (12.2-14.7)
[2017-04-06 13:11] LABS: ALANINE AMINOTRANSFERASE 12 U/L (0-55); ALBUMIN 4.1 GM/DL (3.2-4.5); ALKALINE PHOSPHATASE 106 U/L (40-136); BILIRUBIN,TOTAL 0.6 MG/DL (0.1-1.0); BUN/CREATININE RATIO 17; CALCIUM 8.9 MG/DL (8.5-10.1); CARBON DIOXIDE 19 MMOL/L (21-32); CHLORIDE 109 MMOL/L (98-107); CREATINE KINASE 75 U/L (30-200); CREATININE SERUM 0.66 MG/DL (0.60-1.30); GFR ESTIMATED > 60; GLUCOSE 99 MG/DL (70-105); POTASSIUM 4.5 MMOL/L (3.6-5.0); SODIUM 137 MMOL/L (135-145); TOTAL PROTEIN 7.5 GM/DL (6.4-8.2)
--- NOTE | 2017-04-06 13:14 | Diagnostic Imaging Report ---
PROCEDURE: CT head without contrast. TECHNIQUE: Multiple contiguous axial images were obtained through the brain without the use of intravenous contrast. INDICATION: Seizure. COMPARISON: 09/01/2016. FINDINGS: No acute intracranial hemorrhage, mass effect, or edema is seen. An area of encephalomalacia in the right occipital and posterior temporal lobe is unchanged. Areas of hypodensity in the periventricular white matter are also unchanged and probably related to chronic microvascular ischemic disease. No new focal abnormality is suspected. The ventricles appear normal. The paranasal sinuses and mastoids are clear as visualized. IMPRESSION: No evidence of an acute intracranial abnormality. No interval change from the prior study with chronic senescent changes as described. Dictated by: Dictated on workstation # [id number]
[2017-04-06 13:32] LABS: CREATINE KINASE MB 2.8 NG/ML (<6.6); MYOGLOBIN SERUM 77.4 NG/ML (10.0-92.0)
[2017-04-06] MEDS ORDERED: KETOROLAC 30 MG/ML VIAL IVP STA (14:03)
--- NOTE | 2017-04-06 14:12 | ED Neurological Problem ---
General Chief Complaint: Neurological Problems Stated Complaint: SEIZURE ACTIVITY Nursing Triage Note: Possible seizure at home. Source: patient, spouse Exam Limitations: physical impairment (patient unable to provide history or answer questions due to dementia/chronic confusion. Repeatedly exclaims " helped me. Help me!" reports this is normal for patient to repeat.) History of Present Illness Date Seen by Provider: Apr 06, 2017 Time Seen by Provider: 11:45 Initial Comments 76-year-old male patient presents to the emergency Department with reports of possible seizure at home. Denies tremors or shaking. States they were able to get him onto his side and a wrap him and blankets. reports this is similar to previous seizures. reports the last time patient had a seizure he had a urinary tract infection. 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 Patient does take seizure medications at home, but is unsure of the exact names. Denies missing any doses of his medications. States she forgot to grab his wallet at home which has the medication list in it. denies patient having a fever or vomiting. Reports seizure did not "last that long" and was postictal. States patient was rolling around on the floor. She has noticed him being more confused recently. Patient was discharged from [facility] on February 23 to home. Denies having home health care or any assistance at home and caring for the patient. Timing/Duration: other (just prior to arrival) Allergies and Home Medications Allergies Coded Allergies: No Known Drug Allergies (Unverified , 09/01/16) Home Medications Acetaminophen 500 Mg Tablet, 1,000 MG PO HS PRN for PAIN-MILD, (Reported) TAKES 2 (500 MG) TABLETS Alprazolam 0.25 Mg Tablet, 0.25 MG PO Q6H PRN for AGITATION, (Reported) Aspirin 81 Mg Tablet.dr, 81 MG PO DAILY, (Reported) Cholestyramine (with Sugar) 4 Gm Powd.pack, 4 GM PO BID, (Reported) Hydrocodone/Acetaminophen 1 Each Tablet, 1 TAB PO Q8H PRN for PAIN-MODERATE, ( Reported) Lactobacillus Rhamnosus GG 1 Each Capsule, 1 CAP PO BID, (Reported) Levetiracetam 500 Mg Tablet, 500 MG PO BID, (Reported) Losartan Potassium 100 Mg Tablet, 100 MG PO DAILY, (Reported) Magnesium Oxide 500 Mg Tablet, 500 MG PO BID, (Reported) Melatonin/Pyridoxine HCl (B6) 1 Each Tablet, 6 MG PO HS PRN for SLEEP, (Reported ) TAKES 2 (3 MG) TABLETS Metronidazole 500 Mg Tablet, 500 MG PO TID Prescribed by: OLIVER WAGNER on 10/28/16 0822 Montelukast Sodium 10 Mg Tablet, 10 MG PO DAILY, (Reported) Mv-Mn/FA/Vit K/Lycop/Lut/Zeaxa 1 Each Tablet, 1 TAB PO HS, (Reported) [place] 3 Polyunsat Fatty Acids 1,000 Mg Cap, 1,000 MG PO DAILY, (Reported) Phenytoin Sodium Extended 100 Mg Capsule, 200 MG PO BID, (Reported) TAKES 2 (100 MG) CAPSULES Potassium Chloride 20 Meq Tablet.er, 20 MEQ PO DAILY, (Reported) Propranolol HCl 40 Mg Tablet, 40 MG PO BID, (Reported) Quetiapine Fumarate 100 Mg Tablet, 100 MG PO HS, (Reported) Sertraline HCl 100 Mg Tablet, 100 MG PO DAILY, (Reported) Tamsulosin HCl 0.4 Mg Cap.er.24h, 0.4 MG PO 1800, (Reported) Vancomycin HCl 125 Mg Capsule, 125 MG PO Q6H Prescribed by: OLIVER WAGNER on 10/28/16 0832 Constitutional: No diaphoresis, No fever, other (review of systems per spouse. Patient unable to provide review of systems. Repeatedly states "helped me. Help me" reports this is normal for patient to repeat.) Respiratory: No cough, No short of breath, No wheezing Gastrointestinal: No abdominal pain, No constipation, No diarrhea, No vomiting Psychiatric/Neurological: See HPI All Other Systems Reviewed Negative Unless Noted: Yes (Negative excepted noted.) Past Xxhhfbi-Ssigms-Uefozp Hx Patient Social History Type Used: Pipe Former Smoker, Quit: Feb 14, 2011 2nd Hand Smoke Exposure: No Recent Foreign Travel: No Contact w/Someone Who Travel: No Recent Hopitalizations: No Immunizations Up To Date Tetanus Booster (TDap): Less than 5yrs PED Vaccines UTD: No Date of Pneumonia Vaccine: June 10, 2012 Seasonal Allergies Seasonal Allergies: No Surgeries History of Surgeries: Yes (BOOP-LUNG SURGERY, CATARACTS, DETACHED RETINA; HERNIA REPAIR ) Surgeries: Abdominal, Coronary Stent, Eye Surgery, Tonsillectomy Respiratory History of Respiratory Disorde: Yes Respiratory Disorders: COPD Currently Using CPAP: No Currently Using BIPAP: No Cardiovascular History of Cardiac Disorders: Yes Cardiac Disorders: Coronary Artery Disease, Hypertension Neurological History of Neurological Disord: Yes Neurological Disorders: Dementia, Parkinson's Disease, Seizure Disorder, Stroke Reproductive System Hx Reproductive Disorders: No Sexually Transmitted Disease: No HIV/AIDS: No Genitourinary History of Genitourinary Disor: Yes (urinary retention) Gastrointestinal History of Gastrointestinal Di: Yes Gastrointestinal Disorders: Abdominal Hernia, Diverticulosis, C-Diff, Hiatal Hernia Musculoskeletal History of Musculoskeletal Dis: Yes Endocrine History of Endocrine Disorders: No HEENT History of HEENT Disorders: Yes HEENT Disorders: Cataract, Eye Injury Loss of Vision: Bilateral Hearing Impairment: Hard of Hearing Cancer History of Cancer: No Did You Recieve Any Treatments: No Psychosocial History of Psychiatric Problem: Yes Behavioral Health Disorders: Depression Integumentary History of Skin or Integumenta: Yes Skin/Integumentary Disorders: Psoriasis Blood Transfusions History of Blood Disorders: No Adverse Reaction to a Blood Tr: No Reviewed Nursing Assessment Reviewed/Agree w Nursing PMH: Yes Family Medical History Significant Family History: CAD Over 55 Years Old Family Medial History: Cardiovascular disease 19 FATHER, Onset:Unknown Cataracts 19 MOTHER, Onset:Unknown FH: stomach cancer 19 MOTHER, Onset:Unknown Glaucoma 19 MOTHER, Onset:Unknown Physical Exam Vital Signs Vital Signs - First Documented 04/06/17 11:39 Temp 96.5 Pulse 95 Resp 18 B/P (MAP) 170/93 (118) Pulse Ox 99 Capillary Refill : General Appearance: WD/WN, no apparent distress (patient pleasantly confused. Patient does intermittently repeat "help me, help me." Or "Mariam, help me.") HEENT: PERRL/EOMI, normal ENT inspection, TMs normal, pharynx normal Neck: non-tender, full range of motion, supple, normal inspection, No carotid bruit Respiratory: lungs clear, normal breath sounds, no respiratory distress, no accessory muscle use Cardiovascular: normal peripheral pulses, regular rate, rhythm, no murmur, other (1+ pedal edema bilaterally) Peripheral Pulses: 2+ Carotid (R), 2+ Carotid (L), 2+ Dorsalis Pedis (R), 2+ Left Dors-Pedis (L), 2+ Radial Pulses (R), 2+ Radial Pulses (L) Gastrointestinal: normal bowel sounds, non tender, soft, no organomegaly, No distended Back: normal inspection Extremities: no calf tenderness, normal capillary refill, pedal edema (one plus pedal edema bilaterally) Neurologic/Psychiatric: wiring mechanic II-XII nml as tested, no motor/sensory deficits, alert, depressed affect, other (oriented to self) [place] Nerves: normal hearing, normal speech (no evidence of slurred speech. Patient does repeatedly asked "help me, help me" or "Mariam, help me."), PERRL Coordination/Gait: other (patient is a 1 person assist with transfer from the wheelchair to the exam bed. Unable to follow commands on finger to nose and Romberg test.) Motor/Sensory: no motor deficit (patient is moving all 4 extremities without difficulty.), no sensory deficit Skin: normal color, warm/dry Stroke Stroke Thrombolytic Exclusion Age 18 or Over: Yes Progress/Results/Core Measures Results/Orders Lab Results Laboratory Tests Test 04/06/17 12:09 04/06/17 12:43 Range/Units Urine Color YELLOW Urine Clarity CLEAR Urine pH 5 5-9 Urine Specific [place] 1.015 L 1.016-1.022 Urine Protein NEGATIVE NEGATIVE Urine Glucose (UA) NEGATIVE NEGATIVE Urine Ketones NEGATIVE NEGATIVE Urine Nitrite NEGATIVE NEGATIVE Urine Bilirubin NEGATIVE NEGATIVE Urine Urobilinogen NORMAL NORMAL MG/DL Urine Leukocyte Esterase NEGATIVE NEGATIVE Urine RBC (Auto) NEGATIVE NEGATIVE Urine RBC NONE /HPF Urine WBC NONE /HPF Urine Squamous Epithelial Cells NONE /HPF Urine Crystals NONE /LPF Urine Bacteria NEGATIVE /HPF Urine Casts NONE /LPF Urine Mucus NEGATIVE /LPF Urine Culture Indicated NO White Blood Count 11.6 H 4.3-11.0 10^3/uL Red Blood Count 4.80 4.35-5.85 10^6/uL Hemoglobin 15.1 13.3-17.7 G/DL Hematocrit 45 40-54 % Mean Corpuscular Volume 93 80-99 FL Mean Corpuscular Hemoglobin 32 25-34 PG Mean Corpuscular Hemoglobin Concent 34 32-36 G/DL Red Cell Distribution Width 13.8 10.0-14.5 % Platelet Count 198 130-400 10^3/uL Mean Platelet Volume 9.5 7.4-10.4 FL Neutrophils (%) (Auto) 75 42-75 % Lymphocytes (%) (Auto) 11 L 12-44 % Monocytes (%) (Auto) 9 0-12 % Eosinophils (%) (Auto) 5 0-10 % Basophils (%) (Auto) 0 0-10 % Neutrophils # (Auto) 8.6 H 1.8-7.8 X 10^3 Lymphocytes # (Auto) 1.3 1.0-4.0 X 10^3 Monocytes # (Auto) 1.1 H 0.0-1.0 X 10^3 Eosinophils # (Auto) 0.5 H 0.0-0.3 10^3/uL Basophils # (Auto) 0.1 0.0-0.1 10^3/uL Prothrombin Time 14.5 12.2-14.7 SEC INR Comment 1.1 0.8-1.4 Activated Partial Thromboplast Time 30 24-35 SEC Sodium Level 137 135-145 MMOL/L Potassium Level 4.5 3.6-5.0 MMOL/L Chloride Level 109 H 98-107 MMOL/L Carbon Dioxide Level 19 L 21-32 MMOL/L Anion Gap 9 5-14 MMOL/L Blood Urea Nitrogen 11 7-18 MG/DL Creatinine 0.66 0.60-1.30 MG/DL Estimat Glomerular Filtration Rate > 60 BUN/Creatinine Ratio 17 Glucose Level 99 70-105 MG/DL Calcium Level 8.9 8.5-10.1 MG/DL Total Bilirubin 0.6 0.1-1.0 MG/DL Aspartate Amino Transf (AST/SGOT) 15 5-34 U/L Alanine Aminotransferase (ALT/SGPT) 12 0-55 U/L Alkaline Phosphatase 106 40-136 U/L Total Creatine Kinase 75 30-200 U/L Creatine Kinase MB 2.8 <6.6 NG/ML Myoglobin 77.4 10.0-92.0 NG/ML Troponin I < 0.30 <0.30 NG/ML C-Reactive Protein High Sensitivity 0.76 H 0.00-0.50 MG/DL Total Protein 7.5 6.4-8.2 GM/DL Albumin 4.1 3.2-4.5 GM/DL Free Thyroxine 0.90 0.70-1.48 NG/DL TSH [place] Testing 0.20 L 0.35-4.94 UIU/ML Phenytoin (Dilantin) Level 14.5 10.0-20.0 mg/L Levetiracetam (Keppra) Level 15 ug/mL My Orders Orders - GIACOMO GALLEGOS Cbc With Automated Diff (04/06/17 11:48) Comprehensive Metabolic Panel (04/06/17 11:48) Creatine Kinase (04/06/17 11:48) Creatine Kinase Mb (04/06/17 11:48) Hs C Reactive Protein (04/06/17 11:48) Protime With Inr (04/06/17 11:48) Partial Thromboplastin Time (04/06/17 11:48) Thyroid Analyzer (04/06/17 11:48) Troponin I (04/06/17 11:48) Ua Culture If Indicated (04/06/17 11:48) Myoglobin Serum (04/06/17 11:48) Saline Lock/Iv-Start (04/06/17 11:48) Ekg Tracing (04/06/17 11:48) Monitor-Rhythm Ecg Trace Only (04/06/17 11:48) Chest 1 View, Ap/Pa Only (04/06/17 11:48) Ct Head Wo (04/06/17 11:48) Ns Iv 1000 Ml (Sodium Chloride 0.9%) (04/06/17 12:54) Free T4 (Free Thyroxine) (04/06/17 12:43) Dilantin (Phenytoin) (04/06/17 13:34) Levetiracetam Level (Keppra) (04/06/17 13:34) Ketorolac Injection (Toradol Injection) (04/06/17 14:03) Medications Given in ED Vital Signs/I&O Vital Sign - Last 12Hours 04/06/17 04/06/17 11:39 15:18 Temp 96.5 96.5 Pulse 95 56 Resp 18 18 B/P (MAP) 170/93 (118) 156/92 (118) Pulse Ox 99 96 ECG Initial ECG Impression Date: Apr 06, 2017 Initial ECG Impression Time: 13:25 Initial ECG Rate: 54 Initial ECG Rhythm: A Fib/Flutter Initial ECG Comparisson: Unchanged Comment Atrial flutter with left bundle branch block. No STEMI noted. ECG reviewed with Dr. Terrell. Diagnostic Imaging Diagonstic Imaging: CT Plain Films/CT/US/NM/MRI: head Comments FINDINGS: No acute intracranial hemorrhage, mass effect, or edema is seen. An area of encephalomalacia in the right occipital and posterior temporal lobe is unchanged. Areas of hypodensity in the periventricular white matter are also unchanged and probably related to chronic microvascular ischemic disease. No new focal abnormality is suspected. The ventricles appear normal. The paranasal sinuses and mastoids are clear as visualized. IMPRESSION: No evidence of an acute intracranial abnormality. No interval change from the prior study with chronic senescent changes as described. Dictated by: Dictated on workstation # [id number] Reviewed: Reviewed by Me (radiology report reviewed by me) Diagonstic Imaging: Xray Plain Films/CT/US/NM/MRI: chest Comments FINDINGS: Single frontal view of the chest demonstrates normal heart size and pulmonary vascularity. The lungs show low inspiratory volumes, but are otherwise clear. No large pleural effusion or pneumothorax is seen. The visualized osseous structures show no acute abnormalities. IMPRESSION: 1. Low lung volumes, but otherwise no acute cardiopulmonary process. Dictated on workstation # [id number] Reviewed: Reviewed by Me (radiology report reviewed by me) Departure Communication (Admissions) Progress Notes 1400 I have contacted Oliver Wagner, will await return phone call. 1420 return call from Oliver Wagner. All history, vital signs, laboratory findings, diagnostic study findings, and exam findings discussed with Dr. Wagner. Recommendations by Dr. Wagner are for discharge to home with follow- up as an outpatient in his office. All laboratory findings, diagnostic study findings, and recommendations by Dr. Oliver Wagner discussed with the patient's . verbalizes understanding and agrees with the treatment plan. Patient case discussed with Dr. Terrell, he agrees with the plan of care. Impression Impression: Primary Impression: Seizure disorder Additional Impression: History of atrial fibrillation Disposition: HOME, SELF-CARE Condition: Improved Departure-Patient Inst. Decision time for Depature: 14:26 Referrals: OLIVER WAGNER MD (PCP/Family) Primary Care Physician Patient Instructions: Seizures, Adult (DC) Add. Discharge Instructions: All discharge instructions reviewed with patient and/or family. Voiced understanding. Continue usual home medications. Drink plenty of fluids. Follow-up with Dr. Wagner as an outpatient for recheck, call for appointment time. Return to the emergency department for worsened symptoms, recurrent seizure, chest pain, vomiting, or any other concerns. GIACOMO GALLEGOS Apr 06, 2017 14:12
[2017-04-06 15:18] VITALS: BP 156/92
== END 2017-04-06 15:18 | disposition home or self-care (01) ==
LOC: EDUNIT# 11:38 → ER 11:40
DX: G40.909 Epilepsy, unspecified, not intractable, without status epilepticus (principal); I48.91 Unspecified atrial fibrillation; F32.9 Major depressive disorder, single episode, unspecified; J44.9 Chronic obstructive pulmonary disease, unspecified; F03.90 Unspecified dementia, unspecified severity, without behavioral disturbance, psychotic disturbance, mood disturbance, and anxiety; G20 Parkinson's disease; I10 Essential (primary) hypertension; I25.10 Atherosclerotic heart disease of native coronary artery without angina pectoris; Z86.73 Personal history of transient ischemic attack (TIA), and cerebral infarction without residual deficits; Z95.5 Presence of coronary angioplasty implant and graft; Z90.89 Acquired absence of other organs; Z87.891 Personal history of nicotine dependence; Z79.82 Long term (current) use of aspirin
CPT/HCPCS: 36415; 70450; 71045; 80053; 80177; 80185; 81000; 82550; 82553; 83874; 84439; 84443; 84484; 85025; 85610; 85730; 86141; 93005; 93041

== ENCOUNTER 2017-12-15 00:26 | Inpatient (IN) | payer MEDICARE ==
[~2017-12-15] VITALS: Ht 182.9 cm; Wt 99.8 kg
[~2017-12-15 00:26] MED LIST changes: -ASPI81TA42 PO; +ASPI81TA64 PO; +HYDR-4226 PO; -HYDR-757 PO; -LOSA100T28 PO; +LOSA100T8 PO; -LOSA50TA36 PO; +LOSA50TA7 PO; +METR-197 PO; -METR500T21 PO
[2017-12-15 00:43] LABS: BASOPHILS % (AUTO) 0 % (0-10); EOSINOPHILS # (AUTO) 0.1 10^3/uL (0.0-0.3); EOSINOPHILS % (AUTO) 1 % (0-10); HEMATOCRIT 44 % (40-54); HEMOGLOBIN 14.8 G/DL (13.3-17.7); LYMPHOCYTES # (AUTO) 1.6 X 10^3 (1.0-4.0); LYMPHOCYTES % (AUTO) 11 % (12-44); MEAN CORPUSCULAR HEMOGLOBIN 31 PG (25-34); MEAN CORPUSCULAR HGB CONC 34 G/DL (32-36); MEAN CORPUSCULAR VOLUME 92 FL (80-99); MEAN PLATELET VOLUME 9.3 FL (7.4-10.4); MONOCYTES # (AUTO) 1.1 X 10^3 (0.0-1.0); MONOCYTES % (AUTO) 8 % (0-12); NEUTROPHILS # (AUTO) 11.6 X 10^3 (1.8-7.8); NEUTROPHILS % (AUTO) 80 % (42-75); PLATELET COUNT 236 10^3/uL (130-400); RED BLOOD COUNT 4.74 10^6/uL (4.35-5.85); RED CELL DISTRIBUTION WIDTH 13.8 % (10.0-14.5); WHITE BLOOD COUNT 14.4 10^3/uL (4.3-11.0)
[2017-12-15] MEDS ORDERED: ONDANSETRON 4 MG/2 ML (SDV) Z0FRAN ONE (00:44)
[2017-12-15] MEDS ORDERED: ONDANSETRON 4 MG/2 ML (SDV) Z0FRAN IVP ONE (00:45)
[2017-12-15 00:54] LABS: INR 1.1 (0.8-1.4); PROTHROMBIN TIME PATIENT 14.2 SEC (12.2-14.7)
[2017-12-15 01:01] LABS: ALANINE AMINOTRANSFERASE 15 U/L (0-55); ALBUMIN 4.3 GM/DL (3.2-4.5); ALKALINE PHOSPHATASE 166 U/L (40-136); BILIRUBIN,TOTAL 0.5 MG/DL (0.1-1.0); BUN/CREATININE RATIO 12; CALCIUM 9.2 MG/DL (8.5-10.1); CARBON DIOXIDE 16 MMOL/L (21-32); CHLORIDE 102 MMOL/L (98-107); CREATININE SERUM 0.76 MG/DL (0.60-1.30); GFR ESTIMATED > 60; GLUCOSE 159 MG/DL (70-105); MAGNESIUM 2.9 MG/DL (1.8-2.4); POTASSIUM 4.6 MMOL/L (3.6-5.0); SODIUM 134 MMOL/L (135-145); TOTAL PROTEIN 8.1 GM/DL (6.4-8.2)
[2017-12-15 01:15] LABS: BILIRUBIN,URINE NEGATIVE (NEGATIVE); CLARITY,URINE CLEAR; COLOR,URINE YELLOW; GLUCOSE, URINE (UA) NEGATIVE (NEGATIVE); KETONES,URINE NEGATIVE (NEGATIVE); LEUKOCYTE ESTERASE ,URINE NEGATIVE (NEGATIVE); NITRITE,URINE NEGATIVE (NEGATIVE); PH,URINE 5 (5-9); PROTEIN,URINE 2+ (NEGATIVE); UROBILINOGEN,URINE NORMAL (NORMAL)
[2017-12-15 01:20] LABS: TSH (THYROID ANALYZER) 1.09 UIU/ML (0.35-4.94)
[2017-12-15 01:20] LABS: AMORPHOUS SEDIMENT,UR RARE AMOR URATES /LPF; BACTERIA,URINE NEGATIVE /HPF; SQUAMOUS EPITHELIAL CELL,UR 0-2 /HPF
--- NOTE | 2017-12-15 01:24 | ED Neurological Problem ---
General Chief Complaint: Neuro-Stroke Like Symptoms Stated Complaint: SEIZURE Nursing Triage Note: PT TO ROOM #6 VIA [facility] CART FROM HOME. PT ALERT TO PERSON AND PLACE. WHEN ASKED WHY PT IS HERE PT STATES "I HAD A STROKE." PT NOTED TO HAVE REPEPTIVIE SPEECH STATING "OH PLEASE, OH PLEASE." EMS REPORTS REPORTS PT WAS FINE BEFORE SEIZURE AT 2000 THIS EVENING AND HASNT BEEN THE SAME SINCE. EMS REPORTS PT HX OF STROKE. UPON ARRIVAL TO ED INITIAL NIH STROKE SCALE PREFORMED. PT UNABLE TO FOLLOW VERBAL COMMANDS. PT NOTED TO BE PALE WITH BILAT EYELIDS DROOPING. [facility] PLACED 22G IV TO RT WRIST IN TRANSIT TO FACILITY. 2MM PERRLA. 2L 02 VIA NC APPLIED UPON ARRIVAL DT O2 SAT 92% RA. O2 SAT MARIO TO 96% AFTER 2 MIN. SKIN ABRASIONS NOTED TO RT KNEE. ON WAY TO ED. PT DENIES PAIN. Nursing Sepsis Screen: No Definite Risk Source: EMS, spouse ( IS LIMITED HISTORIAN) Exam Limitations: clinical condition (PT UNABLE TO ANSWER MOST QUESTIONS OR TO FOLLOW ANY COMMANDS) History of Present Illness Date Seen by Provider: Dec 15, 2017 Time Seen by Provider: 00:25 Initial Comments PT ARRIVES VIA EMS FROM HOME REPORTS THAT PT HAD SEIZURE AT 1900 / THURSDAY 12/14 AND ANOTHER ONE AROUND 2029--EACH LASTED 5 MINUTES OR LESS CALLED EMS BECAUSE HE "HASN'T COME OUT OF IT LIKE HE NORMALLY DOES" --PT IS STILL CONFUSED, AND IS REPEATING HIMSELF STATES HE HAS BEEN CONFUSED SINCE THURSDAY EVENING 12/13/17 AND HAS HAD INCREASED CONFUSION ALL DAY ON THURSDAY 12/14 STATES HE SOMETIMES FORGETS TO TAKE HIS MEDICATIONS, BUT THINKS HE TOOK THEM ON THURSDAY, BUT IS NOT SURE IF HE TOOK THEM THURSDAY OR THURSDAY NO REPORTED INJURY FROM EITHER SEIZURE STATES HIS LAST SEIZURE WAS OVER A YEAR AGO. PT ALSO HAS HISTORY OF CVA- IN 2010-LOST MOST OF HIS EYESIGHT IN LEFT EYE, IS UNCLEAR IF HE HAD ANY PARALYSIS/WEAKNESS OR RESIDUAL MEMORY/COGNITION PROBLEMS GIVES SOME CONFLICTING/UNCLEAR INFORMATION--STATES THAT NORMALLY HE IS ALERT AND ORIENTED X 4 AND IS NOT CONFUSED, BUT ACCORDING TO OLD RECORDS, PT HAS HISTORY OF SEVERE DEMENTIA AND BEHAVIORAL DISTURBANCE WITH MULTIPLE ADMITS TO [facility]. PER OLD RECORDS PT WAS HOSPITALIZED 07/2016 FOR HERNIA REPAIR, AND SUBSEQUENT UTI, THEN DEVELOPED C. DIFFICILE WITH SEPSIS. AND ENDED UP AT [facility] FROM JULY 2017 UNTIL 02/23/17 REPORTS NO SEIZURES SINCE BEFORE HE WAS HOSPITALIZED STATES HE HAS NOT BEEN ILL RECENTLY ACCUCHECK 130 BY EMS. PCP: DR. BRYANT WAGNER--LAST VISIT WAS A COUPLE OF MONTHS AGO HAS SEEN NEUROLOGIST; DR. JOHNSON, A COUPLE OF TIMES, BUT NOT FOR A LONG TIME Allergies and Home Medications Allergies Coded Allergies: No Known Drug Allergies (Unverified , 09/01/16) Home Medications Acetaminophen 500 Mg Tablet, 1,000 MG PO HS PRN for PAIN-MILD, (Reported) TAKES 2 (500 MG) TABLETS Alprazolam 0.25 Mg Tablet, 0.25 MG PO Q6H PRN for AGITATION, (Reported) Aspirin 81 Mg Tablet.dr, 81 MG PO DAILY, (Reported) Cholestyramine (with Sugar) 4 Gm Powd.pack, 4 GM PO BID, (Reported) Hydrocodone/Acetaminophen 1 Each Tablet, 1 TAB PO Q8H PRN for PAIN-MODERATE, ( Reported) Lactobacillus Rhamnosus GG 1 Each Capsule, 1 CAP PO BID, (Reported) Levetiracetam 500 Mg Tablet, 500 MG PO BID, (Reported) Losartan Potassium 100 Mg Tablet, 100 MG PO DAILY, (Reported) Magnesium Oxide 500 Mg Tablet, 500 MG PO BID, (Reported) Melatonin/Pyridoxine HCl (B6) 1 Each Tablet, 6 MG PO HS PRN for SLEEP, (Reported ) TAKES 2 (3 MG) TABLETS Metronidazole 500 Mg Tablet, 500 MG PO TID Prescribed by: BRYANT WAGNER on 10/28/16821 Montelukast Sodium 10 Mg Tablet, 10 MG PO DAILY, (Reported) Mv-Mn/FA/Vit K/Lycop/Lut/Zeaxa 1 Each Tablet, 1 TAB PO HS, (Reported) [place] 3 Polyunsat Fatty Acids 1,000 Mg Cap, 1,000 MG PO DAILY, (Reported) Phenytoin Sodium Extended 100 Mg Capsule, 200 MG PO BID, (Reported) TAKES 2 (100 MG) CAPSULES Potassium Chloride 20 Meq Tablet.er, 20 MEQ PO DAILY, (Reported) Propranolol HCl 40 Mg Tablet, 40 MG PO BID, (Reported) Quetiapine Fumarate 100 Mg Tablet, 100 MG PO HS, (Reported) Sertraline HCl 100 Mg Tablet, 100 MG PO DAILY, (Reported) Tamsulosin HCl 0.4 Mg Cap.er.24h, 0.4 MG PO 1800, (Reported) Vancomycin HCl 125 Mg Capsule, 125 MG PO Q6H Prescribed by: BRYANT WAGNER on 10/28/16 0832 Patient Home Medication List Home Medication List Reviewed: Yes Review of Systems Review of Systems Constitutional: other (PT UNABLE TO ANSWER QUESTIONS) Psychiatric/Neurological: See HPI Past Kscywdx-Fmekoq-Mpsavt Hx Patient Social History Alcohol Use: Denies Use Recreational Drug Use: No Smoking Status: Former Smoker Type Used: Pipe Former Smoker, Quit: Feb 14, 2011 2nd Hand Smoke Exposure: No Recent Foreign Travel: No Contact w/Someone Who Travel: No Recent Infectious Disease Expo: No Recent Hopitalizations: No Immunizations Up To Date Tetanus Booster (TDap): Less than 5yrs PED Vaccines UTD: No Date of Pneumonia Vaccine: June 10, 2012 Seasonal Allergies Seasonal Allergies: No Past Medical History Surgeries: Yes (BOOP-LUNG SURGERY, CATARACTS, DETACHED RETINA; HERNIA REPAIR ) Abdominal, Cardiac, Coronary Stent, Eye Surgery, Tonsillectomy Respiratory: Yes COPD Currently Using CPAP: No Currently Using BIPAP: No Cardiac: Yes Coronary Artery Disease, Hypertension Neurological: Yes (DEMENTIA WITH BEHAVIOR DISTURBANCE) Dementia, Parkinson's Disease, Seizure Disorder, Stroke Reproductive Disorders: No Sexually Transmitted Disease: No HIV/AIDS: No Genitourinary: Yes (urinary retention) Prostate Problems Gastrointestinal: Yes Abdominal Hernia, Diverticulosis, C-Diff, Hiatal Hernia Musculoskeletal: Yes (GENERALIZED WEAKNESS AND FALLS) Arthritis Endocrine: No HEENT: Yes (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) Cataract, Eye Injury Loss of Vision: Bilateral Hearing Impairment: Hard of Hearing Cancer: No Did You Recieve Any Treatments: No Psychosocial: Yes Depression Integumentary: Yes Psoriasis Blood Disorders: No Adverse Reaction/Blood Tranf: No Family Medical History Cardiovascular disease 19 FATHER, Onset:Unknown Cataracts 19 MOTHER, Onset:Unknown FH: stomach cancer 19 MOTHER, Onset:Unknown Glaucoma 19 MOTHER, Onset:Unknown CAD Over 55 Years Old Physical Exam Vital Signs Vital Signs - First Documented 12/15/17 00:26 Temp 96.9 Pulse 82 Resp 16 B/P (MAP) 149/100 (116) Pulse Ox 96 O2 Delivery Nasal Cannula O2 Flow Rate 2.00 Capillary Refill : Less Than 3 Seconds Height, Weight, BMI Height: 6'0" Weight: 220lbs. 1.0oz. [id number]; 28.0 BMI Method:Estimated General Appearance: no apparent distress, obese, other (SOMEWHAT LETHARGIC, PT REPEATING " OH. PLEASE. OH, PLEASE" AND "HELP ME" PT ANSWERS "I DON'T KNOW TO MOST QUESTIONS" PT IS UNABLE TO FOLLOW ANY COMMANDS) HEENT: other (EDENTULOUS) Neck: normal inspection Respiratory: decreased breath sounds (LEFT BASE), rales (RIGHT BASE), other ( POOR INSPIRATORY EFFORT--UNABLE TO FOLLOW COMMANDS) Cardiovascular: regular rate, rhythm, no edema, no murmur Gastrointestinal: non tender, soft Extremities: normal capillary refill Neurologic/Psychiatric: other (AWAKE AND CONSTANTLY REPEATING " OH, PLEASE" AND "HELP ME" PT ABLE TO STATE HIS FIRST NAME MIKEL, BUT WHEN ASKED WHAT HIS LAST NAME WAS, HE STATES "I DON'T KNOW" PT KNOWS HE IS AT "[facility]" BUT IS UNABLE TO STATE WHAT TOWN HE IS IN. KNOWS WHO PRESIDENT IS, BUT DOES NOT KNOW WHAT YEAR, DATE/DAY OF WEEK OR MONTH.PT UNABLE TO FOLLOW ANY COMMANDS, INCLUDING UNABLE TO TRACK ANY OBJECT WITH EYES. DOES APPEAR TO HAVE A LITTLE MOVEMENT IN ALL OF HIS EXTREMITIES BUT UNABLE TO PERFORM ANY TASK AT ALL. PT UNABLE TO STATE 'S NAME ON ARRIVAL. ) Skin: normal color, warm/dry Stroke NIH Stroke Scale Assessment Level of Consciousness-Questions: 2=Answer neither question (2), LOC Commands: 0=Performs both tasks (0), Visual [place]ada: 2=Complete hemianopia (2), Facial Movement (Facial Paresis): 2=Partial paralysis (2), Motor Function-Arms Right: 2 =Some effort/gravity (2), Motor Function-Arms Left: 2=Some effort/gravity (2), Motor Function-Legs Right: 3=No effort/gravity (3), Motor Function-Legs Left: 3= No effort/gravity (3), Limb Ataxia: 2=Present in two limbs (2), Sensory: 0= Normal:no loss (0), Best Language: 2=Severe aphasia (2), Dysarthria: 1=Mild to moderate loss (1), Extinction & Inattention: 1=Visual,tactile,auditory (1), Total: Stroke Thrombolytic Exclusion Age 18 or Over: Yes Focused Exam Lactate Level 12/15/17 00:30: Lactic Acid Level 1.68 Lactic Acid Level Laboratory Tests Test 12/15/17 00:30 Lactic Acid Level 1.68 MMOL/L (0.50-2.00) Progress/Results/Core Measures Results/Orders Lab Results Laboratory Tests Test 12/15/17 00:30 12/15/17 00:50 Range/Units White Blood Count 14.4 H 4.3-11.0 10^3/uL Red Blood Count 4.74 4.35-5.85 10^6/uL Hemoglobin 14.8 13.3-17.7 G/DL Hematocrit 44 40-54 % Mean Corpuscular Volume 92 80-99 FL Mean Corpuscular Hemoglobin 31 25-34 PG Mean Corpuscular Hemoglobin Concent 34 32-36 G/DL Red Cell Distribution Width 13.8 10.0-14.5 % Platelet Count 236 130-400 10^3/uL Mean Platelet Volume 9.3 7.4-10.4 FL Neutrophils (%) (Auto) 80 H 42-75 % Lymphocytes (%) (Auto) 11 L 12-44 % Monocytes (%) (Auto) 8 0-12 % Eosinophils (%) (Auto) 1 0-10 % Basophils (%) (Auto) 0 0-10 % Neutrophils # (Auto) 11.6 H 1.8-7.8 X 10^3 Lymphocytes # (Auto) 1.6 1.0-4.0 X 10^3 Monocytes # (Auto) 1.1 H 0.0-1.0 X 10^3 Eosinophils # (Auto) 0.1 0.0-0.3 10^3/uL Basophils # (Auto) 0.0 0.0-0.1 10^3/uL Prothrombin Time 14.2 12.2-14.7 SEC INR Comment 1.1 0.8-1.4 Activated Partial Thromboplast Time 38 H 24-35 SEC Sodium Level 134 L 135-145 MMOL/L Potassium Level 4.6 3.6-5.0 MMOL/L Chloride Level 102 98-107 MMOL/L Carbon Dioxide Level 16 L 21-32 MMOL/L Anion Gap 16 H 5-14 MMOL/L Blood Urea Nitrogen 9 7-18 MG/DL Creatinine 0.76 0.60-1.30 MG/DL Estimat Glomerular Filtration Rate > 60 BUN/Creatinine Ratio 12 Glucose Level 159 H 70-105 MG/DL Lactic Acid Level 1.68 0.50-2.00 MMOL/L Calcium Level 9.2 8.5-10.1 MG/DL Corrected Calcium 9.0 8.5-10.1 MG/DL Magnesium Level 2.9 H 1.8-2.4 MG/DL Total Bilirubin 0.5 0.1-1.0 MG/DL Aspartate Amino Transf (AST/SGOT) 21 5-34 U/L Alanine Aminotransferase (ALT/SGPT) 15 0-55 U/L Alkaline Phosphatase 166 H 40-136 U/L Troponin I < 0.30 <0.30 NG/ML Total Protein 8.1 6.4-8.2 GM/DL Albumin 4.3 3.2-4.5 GM/DL TSH Mchen[place] Testing 1.09 0.35-4.94 UIU/ML Urine Color YELLOW Urine Clarity CLEAR Urine pH 5 5-9 Urine Specific [place] 1.015 L 1.016-1.022 Urine Protein 2+ H NEGATIVE Urine Glucose (UA) NEGATIVE NEGATIVE Urine Ketones NEGATIVE NEGATIVE Urine Nitrite NEGATIVE NEGATIVE Urine Bilirubin NEGATIVE NEGATIVE Urine Urobilinogen NORMAL NORMAL MG/DL Urine Leukocyte Esterase NEGATIVE NEGATIVE Urine RBC (Auto) 2+ H NEGATIVE Urine RBC 2-5 H /HPF Urine WBC NONE /HPF Urine Squamous Epithelial Cells 0-2 /HPF Urine Crystals PRESENT H /LPF Urine Amorphous Sediment RARE PETE URATES H /LPF Urine Bacteria NEGATIVE /HPF Urine Casts NONE /LPF Urine Mucus NEGATIVE /LPF Urine Culture Indicated NO Micro Results Microbiology 12/15/17 Influenza Types A,B Antigen (KHOA) - Final, Complete My Orders Orders - ELINA JIMÉNEZ DO Saline Lock/Iv-Start (12/15/17 00:33) Ekg Tracing (12/15/17 00:33) O2 (12/15/17 00:33) Monitor-Rhythm Ecg Trace Only (12/15/17 00:33) Straight Cath For Spec.-Adult (12/15/17 00:33) Ct Head Wo-R/O Stroke (12/15/17 00:33) Cbc With Automated Diff (12/15/17 00:33) Comprehensive Metabolic Panel (12/15/17 00:33) Lactic Acid Analyzer (12/15/17 00:33) Magnesium (12/15/17 00:33) Protime With Inr (12/15/17 00:33) Partial Thromboplastin Time (12/15/17 00:33) Thyroid Analyzer (12/15/17 00:33) Troponin I (12/15/17 00:33) Ua Culture If Indicated (12/15/17 00:33) Blood Culture (12/15/17 00:33) Influenza A And B Antigens (12/15/17 00:33) Chest 1 View, Ap/Pa Only (12/15/17 00:33) Ondansetron Injection (Zofran Injectio (12/15/17 00:45) Ondansetron Injection (Zofran Injectio (12/15/17 00:44) Dilantin (Phenytoin) (12/15/17 01:12) Ct Angio Head/Neck (12/15/17 01:23) Lorazepam Injection (Ativan Injection) (12/15/17 02:00) Iohexol Injection (Omnipaque 350 Mg/Ml 1 (12/15/17 02:30) Ns (Ivpb) (Sodium Chloride 0.9%) (12/15/17 02:30) Ceftriaxone For Iv Use (Rocephin For I (12/15/17 03:15) Medications Given in ED Current Medications Medications Dose Ordered Sig/Destiny Route Start Time Stop Time Status Last Admin Dose Admin Iohexol 75 ml ONCE ONCE IV 12/15/17 02:30 12/15/17 02:40 DC 12/15/17 02:31 75 ML Ondansetron HCl 8 mg ONCE ONCE IVP 12/15/17 00:45 12/15/17 00:46 DC 12/15/17 00:45 8 MG Sodium Chloride 80 ml ONCE ONCE IV 12/15/17 02:30 12/15/17 02:40 DC 12/15/17 02:31 80 ML Vital Signs/I&O 12/15/17 12/15/17 00:26 00:26 Temp 96.9 Pulse 82 Resp 16 B/P (MAP) 149/100 (116) Pulse Ox 96 96 O2 Delivery Nasal Cannula Nasal Cannula O2 Flow Rate 2.00 2.00 Blood Pressure Mean: 116 Progress Progress Note : Progress Note HAD SOME NAUSEA AND DRY HEAVES ON RETURN FROM INITIAL CT--GIVEN ZOFRAN, WITH APPARENT RELIEF PT HAD SOME INCREASING AGITATION DURING IV STICKS AND CATHETER INSERTION,-- YELLING " OH, PLEASE" AND "HELP ME" THEN PT CALMED WHEN LEFT ALONE O2 SATS 92-93% ON ROOM AIR --UP TO 96% ON 2L/NC NO DETERIORATION IN PT'S CONDITION DURING ER STAY LEFT BEFORE TEST RESULTS WERE BACK Initial ECG Impression Date: Dec 15, 2017 Initial ECG Impression Time: 00:45 Initial ECG Rate: 84 Initial ECG Rhythm: Normal Sinus Initial ECG Impression: Nonspecific Changes, 1st Degree AV Block Diagnostic Imaging Comments CXR--BIBASILAR ATELECTASIS AND /OR INFILTRATES. POOR INSPIRATION --PENDING RADIOLOGIST REVIEW CT HEAD--NO ACUTE PROCESS, OLD ENCEPHALOMALACIA. PER [facility] VIA FAX @ CT ANGIOGRAM HEAD/NECK--OCCLUSION OF V3 AND V4 SEGMENTS OF LEFT VERTEBRAL ARTERY WITH COLLATERAL FLOW, NO OCCLUSION TO [place] OF RIBEIRO. 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 CANTU'S CELL PHONE 0310--SPOKE WITH DR. WAGNER, ACCEPTS PT FOR ADMIT. DOES REPORT THAT PT HAS SOME BASELINE CONFUSION, BUT DOES GET VERY CONFUSED WITH INFECTIONS, IN THE PAST. HE IS NOT A CANDIDATE FOR ANY TYPE OF SURGERY OR AGGRESSIVE TREATMENTS. HE ALSO CONFIRMS THAT PT IS DNR/DNI. Impression Primary Impression: Altered mental status Additional Impressions: Seizure disorder Leukocytosis History of CVA (cerebrovascular accident) Dementia Parkinson disease Carotid artery disease Disposition: ADMITTED INPATIENT Condition: Stable/Unchanged Admissions Decision to Admit Reason: Admit from ER (General) Decision to Admit/Date: Dec 15, 2017 Time/Decision to Admit Time: 03:10 Departure-Patient Inst. Referrals: BRYANT WAGNER MD (PCP/Family) Primary Care Physician ELINA JIMÉNEZ DO Dec 15, 2017 01:23
[2017-12-15] MEDS ORDERED: LORazepam INJ 2 MG/ML (ATIVAN) VIAL IVP ONE (02:00)
[2017-12-15] MEDS ORDERED: NS 250 ML (IVPB) BAG IV ONE (02:30)
[2017-12-15] MEDS ORDERED: IOHEXOL 350 MG/ML 100 ML (OMNIPAQUE 350) VIAL IV ONE (02:30)
[2017-12-15] MEDS ORDERED: cefTRIAXone FOR IV USE 1,000 MG in NS (IVPB) 50 ML IV ONE (03:15)
[2017-12-15] MEDS ORDERED: LORazepam INJ 2 MG/ML (ATIVAN) VIAL IV PRN ×2 (04:30→04:45)
[2017-12-15] MEDS: AZITHROMYCIN 500 MG/NS 250 ML IVPB IV SCH ×2 (04:46)
[2017-12-15] MEDS: D5 1/2 NS 1000 ML IV SOLUTION 1,000 ML IV SCH ×3 (04:46→20:03)
[2017-12-15 06:11] VITALS: BP 153/84
[2017-12-15 06:23] LABS: BASOPHILS # (AUTO) 0.1 10^3/uL (0.0-0.1); BASOPHILS % (AUTO) 0 % (0-10); EOSINOPHILS % (AUTO) 0 % (0-10); HEMATOCRIT 44 % (40-54); HEMOGLOBIN 14.7 G/DL (13.3-17.7); LYMPHOCYTES # (AUTO) 2.3 X 10^3 (1.0-4.0); LYMPHOCYTES % (AUTO) 15 % (12-44); MEAN CORPUSCULAR HEMOGLOBIN 32 PG (25-34); MEAN CORPUSCULAR HGB CONC 34 G/DL (32-36); MEAN CORPUSCULAR VOLUME 94 FL (80-99); MEAN PLATELET VOLUME 9.5 FL (7.4-10.4); MONOCYTES % (AUTO) 13 % (0-12); NEUTROPHILS # (AUTO) 10.6 X 10^3 (1.8-7.8); NEUTROPHILS % (AUTO) 71 % (42-75); PLATELET COUNT 247 10^3/uL (130-400); RED BLOOD COUNT 4.66 10^6/uL (4.35-5.85); RED CELL DISTRIBUTION WIDTH 13.8 % (10.0-14.5)
[2017-12-15 06:44] LABS: ALANINE AMINOTRANSFERASE 14 U/L (0-55); ALBUMIN 4.3 GM/DL (3.2-4.5); ALKALINE PHOSPHATASE 162 U/L (40-136); BILIRUBIN,TOTAL 0.5 MG/DL (0.1-1.0); BUN/CREATININE RATIO 11; CALCIUM 9.3 MG/DL (8.5-10.1); CARBON DIOXIDE 16 MMOL/L (21-32); CHLORIDE 105 MMOL/L (98-107); CREATININE SERUM 0.79 MG/DL (0.60-1.30); GFR ESTIMATED > 60; GLUCOSE 121 MG/DL (70-105); POTASSIUM 4.3 MMOL/L (3.6-5.0); SODIUM 137 MMOL/L (135-145); TOTAL PROTEIN 7.8 GM/DL (6.4-8.2)
--- NOTE | 2017-12-15 08:41 | Diagnostic Imaging Report ---
Indication: Altered mental status. Portable chest 12:41 AM There is cardiomegaly. Pulmonary vascularity is mildly increased. Lungs are clear. Impression: Cardiomegaly with mild pulmonary venous hypertension. Dictated by: Dictated on workstation # [id number]
[2017-12-15 08:45] VITALS: BP 127/69
--- NOTE | 2017-12-15 09:26 | Diagnostic Imaging Report ---
INDICATION: Altered mental status, seizure. COMPARISON: 04/06/2017. TECHNIQUE: Unenhanced CT imaging of the head was performed. FINDINGS: Stable large area of encephalomalacia in the right occipital lobe from old ENGINEERING SPECIALIST TECHNICIAN territory infarct. No hyperdense hemorrhage or space-occupying mass. Periventricular white matter hypoattenuation is unchanged and chronic microvascular ischemic disease. No CT features of acute ischemia. No acute calvarial abnormality. Paranasal sinuses and mastoid air cells are clear. IMPRESSION: 1. No acute intracranial process by CT. 2. Stable old right ENGINEERING SPECIALIST TECHNICIAN territorial infarct. 3. Findings are in agreement with the preliminary report. Dictated by: Dictated on workstation # [id number]
[2017-12-15] MEDS ORDERED: POTA20TA8 PO (09:30)
--- NOTE | 2017-12-15 09:47 | Diagnostic Imaging Report ---
PROCEDURE: CT angiography of the head and CT angiography of the neck with and without contrast. TECHNIQUE: Contiguous noncontrast images were obtained from the skull base through the vertex. After intravenous contrast administration, helical CT angiography of the neck was performed. Source data was reformatted into multiple 2D MIP projections. Delayed post contrast acquisition was also obtained. INDICATION: Altered mental status and seizure. Comparison: Head performed one hour prior. Findings: CTA neck: Conventional three-vessel branching pattern of the aortic arch. The bilateral common carotid arteries are patent. Atherosclerotic plaquing is present at the bilateral carotid bulbs. On the left, this results in approximately 75% stenosis of the proximal internal carotid artery per NASCET criteria. Atherosclerotic plaquing results in approximately 50% luminal narrowing of the right proximal internal carotid artery. The cervical portions of the bilateral internal carotid arteries are otherwise widely patent. The origins of the vertebral arteries are patent. Right vertebral artery is patent throughout its extraosseous and intraosseous portions and is normal in caliber. Left vertebral artery is diminutive throughout its entirety. There are multifocal tandem areas of complete occlusion within its distal intraosseous segments. No cervical lymphadenopathy. Lung apices are clear. Thyroid is normal. Multilevel degenerative changes of the cervical spine. CTA head: Distal internal carotid arteries are patent. Bilateral M1 and M2 divisions of the middle cerebral arteries are symmetric and patent. M3 and M4 divisions are grossly normal allowing for small size. Bilateral anterior cerebral arteries are patent. No saccular aneurysm within the anterior circulation. Basilar artery is supplied by the right vertebral artery. Left posterior cerebral artery is patent. The inferior division of the right posterior cerebral artery is diminutive in nature and likely chronically occluded associated with the infarct. Impression: 1. Approximately 75% stenosis of the left proximal internal carotid artery due to atherosclerotic plaquing. 2. Approximately 50% stenosis of the right proximal artery secondary to atherosclerotic plaquing. 3. 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 Right vertebral artery is dominant and supplies the basilar artery, which is patent. 4. No acute intracranial large vessel occlusion. 5. Findings are in agreement with the preliminary report. Dictated by: Dictated on workstation # [id number]
--- NOTE | 2017-12-15 12:37 | Diagnostic Imaging Report ---
INDICATION: Altered mental status Portable chest 12:13 PM Heart size and pulmonary vascularity are normal. Lungs are clear. There are no effusions or pneumothoraces. IMPRESSION: No acute abnormalities in the chest. Dictated by: Dictated on workstation # [id number]
--- NOTE | 2017-12-15 14:31 | ST Dysphagia Evaluation ---
Speech Evaluation-General Medical Diagnosis Neuro - Stroke like symtoms/ siezures Onset Date: Dec 13, 2017 Therapy Diagnosis Therapy Diagnosis: Dysphagia Precautions Precautions/Isolations: Seizure, Fall Prevention, Standard Precautions, Pressure Ulcer Referral Referring Physician: Dr. Oliver Mckeon Reason for Referral: Evaluation/Treatment Medical History Pertinent Medical History: CAD, COPD, CVA, Dementia, HTN, Parkinson's Speech PLF/Current-Dysphagia Prior Level of Function Pt living at home with . Hx of Dementia. Subjective Pt in bed sleeping. Woke pt up to perform assessment. Cognitive Status Patient Orientation: Person Oral Motor Skills Denture Type: Full- Upper & Lower Ability to Follow Directions: Fair Oral Expression Ability: No Impairment Voice Voice Phonatory-Based Quality: Normal Voice Pitch: Normal Voice Loudness: Normal Face Facial Symmetry: Symmetrical Dysphagia Evaluation Consistencies Presented: Regular, Thin Liquid, Mechanical Soft, Pureed WFL WFL Dietary Recommendations: Regular Liquid Recommendations: Thin Dysphagia 3 with thin liquids. Dysphagia Evaluation Summary Pt appears to have a safe oropharyngeal swallow with no signs/symptoms of aspiration. Nursing was informed of recommended diet level. Speech Short Term Goals Short Term Goals Short Term Goals Pt will tolerate recommended diet with no s/s of aspiration. Time Frame-ST week Speech Microbiology Laboratory Manager Goals Longterm Goals Pt will tolerate least restrictive diet with no s/s of aspiration. Time Frame: 1 week Speech-Plan Patient/Family Goals Patient/Family Goals: pt unable to state goal Treatment Plan Speech Therapy Treatment Plan: Modify Plan, See Comments (Skilled ST to assess safety of diet.) Skilled ST to follow to determine safety of diet. Frequency: 2 times per week Estimated Hrs Per Day: .25 hour per day Rehab Potential: Fair Pt/Family Agrees to Plan: Yes Safety Risks/Education Teaching Recipient: Patient Teaching Methods: Discussion Response to Teaching: Verbalize Understanding Time Speech Therapy Time In: 14:10 Speech Therapy Time Out: 14:30 Total Billed Time: 20 Billed Treatment Time 1, ELE Ding Dec 15, 2017 14:31
--- NOTE | 2017-12-15 16:09 | History & Physical ---
History of Present Illness History of Present Illness Reason for visit/HPI 77-year-old male admitted for altered mental status of multiple days duration. Patient's reports he said a couple seizures lately and he just hasn't came out of them as he usually does, so she decided to bring him to the ER. he reports taking his seizure medication as prescribed but is unsure about the medicine the past day. Of note patient does have altered mental status when he gets a urinary tract infection. Urinalysis on this admission though did not indicate an infection. White blood cells are elevated which may be related to his recent seizures. Patient is not following commands very well and yells out at staff on occasion. Patient does have a history of COPD of which he is on 2 L of oxygen at baseline but does not always wear it. patient was placed on Rocephin and azithromycin to cover community-acquired pneumonia. patient was admitted for further evaluation and monitoring. Overall though patient has been doing well at home with his as primary caregiver prior to this he was at [facility] but due to financial reasons his brought him home and he has actually done better than when he was at [facility]. 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 Date of Admission Dec 15, 2017 at 03:26 Date Seen by a Provider: Dec 15, 2017 Time Seen by a Provider: 08:35 I consulted on this patient on 12/15/17 16:09 Attending Physician Oliver Wagner MD Admitting Physician Oliver Wagner MD Consult Allergies and Home Medications Allergies Coded Allergies: No Known Drug Allergies (Unverified , 09/01/16) Home Medications Cholestyramine (with Sugar) 4 Gm Powd.pack, 4 GM PO BID PRN for DIARRHEA, ( Reported) Levetiracetam 500 Mg Tablet, 500 MG PO BID, (Reported) Losartan Potassium 100 Mg Tablet, 100 MG PO DAILY, (Reported) Phenytoin Sodium Extended 100 Mg Capsule, 200 MG PO BID, (Reported) TAKES 2 (100 MG) CAPSULES Potassium Chloride 20 Meq Tablet.er, 20 MEQ PO DAILY, (Reported) Potassium Chloride 20 Meq Tab.er.prt, 20 MEQ PO DAILY, (Reported) Propranolol HCl 40 Mg Tablet, 40 MG PO BID, (Reported) Quetiapine Fumarate 100 Mg Tablet, 100 MG PO HS, (Reported) Sertraline HCl 100 Mg Tablet, 100 MG PO DAILY, (Reported) Tamsulosin HCl 0.4 Mg Cap.er.24h, 0.4 MG PO DAILY, (Reported) Patient Home Medication List Home Medication List Reviewed: Yes Past Brldysi-Glqzjr-Wpmkbk Hx Patient Social History Alcohol Use: Denies Use Recreational Drug Use: No Smoking Status: Former Smoker Former Smoker, Quit: Feb 14, 2011 Type Used: Cigarettes, Pipe 2nd Hand Smoke Exposure: No Physical Abuse Screen: No Sexual Abuse: No Recent Foreign Travel: No Contact w/other who traveled: No Recent Hopitalizations: No Recent Infectious Disease Expo: No Immunizations Up To Date Tetanus Booster (TDap): Less than 5yrs Pediatric: No Date of Pneumonia Vaccine: June 10, 2012 Seasonal Allergies Seasonal Allergies: No Surgeries Yes (BOOP-LUNG SURGERY, CATARACTS, DETACHED RETINA; HERNIA REPAIR ) Abdominal, Cardiac, Coronary Stent, Eye Surgery, Tonsillectomy Respiratory Yes Pneumonia Currently Using CPAP: No Currently Using BIPAP: No Cardiovascular Yes Coronary Artery Disease, Hypertension Neurological Yes (DEMENTIA WITH BEHAVIOR DISTURBANCE) Dementia, Parkinson's Disease, Seizure Disorder, Stroke Reproductive System Hx Reproductive Disorders: No Sexually Transmitted Disease: No HIV/AIDS: No Genitourinary Yes (urinary retention) Prostate Problems Gastrointestinal Yes Abdominal Hernia, Diverticulosis, C-Diff, Hiatal Hernia Musculoskeletal Yes (GENERALIZED WEAKNESS AND FALLS) Arthritis Endocrine History of Endocrine Disorders: No HEENT History of HEENT Disorders: Yes (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) HEENT Disorders: Cataract, Eye Injury Loss of Vision: Bilateral Hearing Impairment: Hard of Hearing Cancer No Did You Recieve Any Treatments: No Psychosocial History of Psychiatric Problem: Yes Behavioral Health Disorders: Depression Integumentary History of Skin or Integumenta: Yes Skin/Integumentary Disorders: Psoriasis Blood Transfusions History of Blood Disorders: No Adverse Reaction to a Blood Tr: No Family Medical History Significant Family History: CAD Over 55 Years Old Family Hx: Cardiovascular disease 19 FATHER, Onset:Unknown Cataracts 19 MOTHER, Onset:Unknown FH: stomach cancer 19 MOTHER, Onset:Unknown Glaucoma 19 MOTHER, Onset:Unknown Review of Systems Review of Systems ROS Unable to Obtain: unreliable historian- pt fell back asleep during interview. HEENT: No Head Aches Physical Exam Vital Signs Vital Signs - First Documented 12/15/17 00:26 Temp 96.9 Pulse 82 Resp 16 B/P (MAP) 149/100 (116) Pulse Ox 96 O2 Delivery Nasal Cannula O2 Flow Rate 2.00 Capillary Refill : Less Than 3 Seconds Height, Weight, BMI Height: 6'0.00" Weight: 220lbs. 0.0oz. [id number]; 29.8 BMI Method:Estimated General Appearance: No Apparent Distress, WD/WN HEENT: PERRL/EOMI Neck: Supple Respiratory: Chest Non Tender; No Crackles; Decreased Breath Sounds (left base) ; No Stridor, No Wheezing Cardiovascular: Regular Rate, Rhythm, No Edema Gastrointestinal: Normal Bowel Sounds, Non Tender, Soft Rectal: Deferred Back: No CVA Tenderness, No Vertebral Tenderness Extremity: Normal Capillary Refill, Non Tender, No Calf Tenderness Neurologic/Psychiatric: Depressed Affect (somnolent) Skin: Normal Color, Warm/Dry Assessment/Plan Assessment/Plan Admission Dx altered mental status pneumonia- left lower lung field seizure Admission Status: Inpatient Order (span 2 midnights) Reason for Inpatient Admission: nonimproving altered mental status at home with after have 2 seizures in past 24 hours. He usually returns to baseline quickly but reports he has not. Also admitted for suspected infection- pneumonia Assessment and Plan Altered mental status- suspect from the 2 seizures and pneumonia- LLL Pneumonia- on rocephin and azithromycin seizures- 2 prior to admission per - will continue dilantin 100mg, keppra 500mg- COPD- at baseline- on 2L oxygen, follows with Dr. Cornejo as outpt- Was fired from [facility] due to his poor effort and verbally abusing staff- hard of hearing- hearing aids Depression- continue home meds CAD- denies chest pain HTN- monitoring- continue home meds. h/o stroke- stable, no new neurological findings. weakness- PT ordered recurrent C.diff- last bout was in 2017 - consider starting flagyl Dispo: monitor for improvement- monitor for any more seizures. Clinical Quality Measures DVT/VTE Risk/Contraindication: Risk Factor Score Per Nursin RFS Level Per Nursing on Admit: 4+=Very High OLIVER WAGNER MD Dec 15, 2017 16:09
[2017-12-15 16:15] VITALS: BP 116/73
[2017-12-15] MEDS ORDERED: CATHETER FLUSH 10 ML SYR IV PRN (16:30)
[2017-12-15] MEDS: ACETAMINOPHEN 325 MG TABLET PO PRN (17:05)
[2017-12-15 19:43] VITALS: BP 119/74
[2017-12-15] MEDS ORDERED: NON-FORMULARY MEDICATION 1 EA EA (Levetiracetam 500 MG) PO SCH (21:00)
[2017-12-15] MEDS ORDERED: NON-FORMULARY MEDICATION 1 EA EA (Quetiapine Fumarate 100 MG) PO SCH (21:00)
[2017-12-15] MEDS ORDERED: NON-FORMULARY MEDICATION 1 EA EA (Phenytoin Sodium Extended 200 MG) PO SCH (21:00)
[2017-12-15] MEDS ORDERED: NON-FORMULARY MEDICATION 1 EA EA (Propranolol HCl 40 MG) PO SCH (21:00)
[2017-12-15] MEDS: QUEtiapine 100 MG (SEROquel) TAB IMMEDIATE RELEASE PO SCH (21:53)
[2017-12-15] MEDS: PHENYTOIN 100 MG (DILANTIN) CAP PO SCH (21:53)
[2017-12-15] MEDS: LEVETIRACETAM 500 MG (KEPPRA) TAB PO SCH (21:53)
[2017-12-15] MEDS: PROPRANOLOL 20 MG (INDERAL) TABLET PO SCH (21:53)
[2017-12-15 23:45] VITALS: BP 115/63
[2017-12-16] MEDS: cefTRIAXone 1 GM/NS 50 ML IVPB IV SCH ×2 (03:11)
[2017-12-16 04:00] VITALS: BP 109/63
[2017-12-16] MEDS: AZITHROMYCIN 500 MG/NS 250 ML IVPB IV SCH ×2 (05:40)
[2017-12-16 07:47] VITALS: BP 113/60
[2017-12-16] MEDS ORDERED: NON-FORMULARY MEDICATION 1 EA EA (Potassium Chloride 20 MEQ) PO SCH (09:00)
[2017-12-16] MEDS: TAMSULOSIN 0.4 MG (FLOMAX) CAP PO SCH (09:42)
[2017-12-16] MEDS: LOSARTAN 100 MG (COZAAR) TABLET PO SCH (09:42)
[2017-12-16] MEDS: LEVETIRACETAM 500 MG (KEPPRA) TAB PO SCH ×2 (09:42→21:31)
[2017-12-16] MEDS: SERTRALINE 100 MG (ZOLOFT) TAB PO SCH (09:42)
[2017-12-16] MEDS: PHENYTOIN 100 MG (DILANTIN) CAP PO SCH ×2 (09:42→21:31)
[2017-12-16] MEDS: KCL 20 MEQ TAB (K-DUR) PO SCH (09:42)
[2017-12-16] MEDS: PROPRANOLOL 20 MG (INDERAL) TABLET PO SCH ×2 (09:43→21:32)
[2017-12-16 11:42] VITALS: BP 121/65
--- NOTE | 2017-12-16 12:26 | Progress Note (SOAP) ---
Subjective Subjective Date Seen by Provider: Dec 16, 2017 Time Seen by Provider: 12:20 77-year-old man admitted with altered mental status. No overnight events his mental status is improved he passed a swallow study and is eating well. patient would like to go home and he does not have any concerns at this time. No fever overnight. No seizure activity witnessed. Oxygen NC was [facility] off his face today and no issues breathing- may try to titrate to room air. Review of Systems General: No Chills, No Night Sweats HEENT: No Head Aches Pulmonary: No Dyspnea, No Cough Cardiovascular: No: Chest Pain, Palpitations Gastrointestinal: No: Nausea, Vomiting, Abdominal Pain Genitourinary: No Dysuria Neurological: Weakness Objective Exam Vital Signs Vital Signs Date Time Temp Pulse Resp B/P (MAP) Pulse Ox O2 Delivery O2 Flow Rate FiO2 12/16/17 11:42 97.0 65 20 121/65 (83) 92 Nasal Cannula 2.00 12/16/17 08:43 Nasal Cannula 2.00 12/16/17 08:00 96 Nasal Cannula 2.00 12/16/17 07:47 97.2 63 20 113/60 (77) 96 Nasal Cannula 2.00 12/16/17 07:00 57 12/16/17 04:00 55 20 109/63 (78) 97 Nasal Cannula 2.00 12/16/17 01:00 71 12/16/17 00:29 97.2 12/15/17 23:45 96.5 68 20 115/63 (80) 96 Nasal Cannula 2.00 12/15/17 20:00 Nasal Cannula 2.00 12/15/17 19:43 97.8 76 22 119/74 (89) 93 Nasal Cannula 2.00 12/15/17 19:00 80 12/15/17 16:15 97.3 71 18 116/73 (87) 96 Nasal Cannula 2.00 12/15/17 14:32 Nasal Cannula 2.00 12/15/17 13:00 62 I & O 12/16/17 07:00 Intake Total 1292 ml Output Total 725 ml Balance 567 ml General Appearance: No Apparent Distress, WD/WN HEENT: PERRL/EOMI Neck: Supple Respiratory: Chest Non Tender; No Crackles; Decreased Breath Sounds (left base) ; No Stridor, No Wheezing Cardiovascular: Regular Rate, Rhythm, No Edema Gastrointestinal: Normal Bowel Sounds, Non Tender, Soft Rectal: Deferred Back: No CVA Tenderness, No Vertebral Tenderness Extremity: Normal Capillary Refill, Non Tender, No Calf Tenderness Neurologic/Psychiatric: Alert, Oriented x3, Normal Mood/Affect; No Depressed Affect Skin: Normal Color, Warm/Dry Results Lab Microbiology 12/15/17 Blood Culture - Preliminary, Resulted No growth 12/15/17 Influenza Types A,B Antigen (KHOA) - Final, Complete Assessment/Plan Assessment/Plan Admission Dx altered mental status pneumonia- left lower lung field seizure Assessment and Plan Altered mental status- suspect from the 2 seizures and pneumonia- improved- pt at baseline. LLL Pneumonia- on rocephin and azithromycin -pt will complete azithromycin. will stop ceftriaxone after 3rd dose. seizures- 2 prior to admission per - will continue dilantin 100mg, keppra 500mg- COPD- at baseline- on 2L oxygen, follows with Dr. Cornejo as outpt- hard of hearing- hearing aids Depression- continue home meds CAD- denies chest pain HTN- monitoring- continue home meds. h/o stroke- stable, no new neurological findings. weakness- PT ordered history of recurrent C.diff- last bout was in 2017 - consider starting flagyl Dispo: monitor for improvement- monitor for any more seizures. Will plan on discharge 12/17/17 to home pending any changes today. d/c tele- d/c owens- monitor UOP as he has history of urinary retention. DVT ppx: lovenox Admission Dx altered mental status pneumonia- left lower lung field seizure Clinical Quality Measures Admission Status Admission Dx altered mental status pneumonia- left lower lung field seizure DVT/VTE Risk/Contraindication: Risk Factor Score Per Nursin RFS Level Per Nursing on Admit: 4+=Very High BRYANT WAGNER MD Dec 16, 2017 12:25
[2017-12-16] MEDS ORDERED: ENOXAPARIN 40 MG/0.4 ML (LOVENOX) SYR SQ SCH (12:30)
--- NOTE | 2017-12-16 14:41 | Speech Therapy Progress Note ---
Therapy Progress Note Attempted to see pt in morning. Pt was sleeping. Spoke with Arun MAYS, who reported he witnessed the pt eating his meal. He reported that he did not observe any signs/symptoms of aspiration such as coughing or choking. 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 ELE FLYNN Dec 16, 2017 14:41
--- NOTE | 2017-12-16 16:03 | Physical Therapy Evaluation ---
PT Evaluation-General Medical Diagnosis Admission Date Dec 15, 2017 at 03:26 Medical Diagnosis: Neuro - Stroke like symtoms/ siezures Onset Date: Dec 13, 2017 Therapy Diagnosis Therapy Diagnosis: weakness; abn gait Height/Weight Height (Feet): 6 Height (Inches): 0.00 Weight (Pounds): 220 Weight (Ounces): 0.0 Precautions Precautions/Isolations: Seizure, Fall Prevention, Standard Precautions Weight Bear Status Right Lower Extremity: Right Weight Bearing/Tolerated Left Lower Extremity: Left Weight Bearing/Tolerated Referral Physician: Oliver Mock Reason for Referral: Evaluation/Treatment Medical History Pertinent Medical History: CAD, COPD, CVA, Dementia, HTN, Parkinson's Current History Pt admitted to hospital after a few days at home with AMS. Reviewed History: Yes Social History Home: Single Level Current Living Status: Spouse Entry Into Home: Stairs With Railing Prior/Core FIM Prior Level of Function Functional [place] Measure 0=Not Assessed/NA 4=Minimal Assistance 1=Total Assistance 5=Supervision or Setup 2=Maximal Assistance 6=Modified [place] 3=Moderate Assistance 7=Complete IndependenceIRFPAI Quality Coding Scale 6 Independent with activity with or without an assistive device 5 Patient requires set up or clean up by helper. Patient completes activity by themselves 4 Supervision or touching assist (CGA). [place] provide cues , steadying assist 3 The helper provides less than half the effort to complete the activity 2 The helper provides more than half the effort to complete the activity 1 Dependent. The helper does all the effort to complete an activity 7 Patient refused to complete or attempt activity 9 The patient did not perform the activity before the current illness or injury 88 Not attempted due to Medical conditions or safety concerns Bed Mobility: 6 (typically sleeps in his reclinr) Transfers (B,C,W/C) (FIM): 6 Gait: 6 PT Evaluation-Current Subjective agrees to PT. hopes to go home tomorrow. Pain Numeric Pain Scale: 0-No Pain Location: No Pain Reported Objective Patient Orientation: Person, Place, Time, Situation Problem Solving: Fair ROM/Strength ROM Lower Extremities WNL Strength Lower Extremities WNL Integumentary/Posture Integumentary Intact Bowel Incontinence: No Bladder Incontinence: No Posture slightly rounded shoulders Neuromuscular (Tone, Coordination, Reflexes) WFL Sensory Vision: impaired but functional Hearing: Impaired Hand Dominance: Right Sensation Right Lower Extremit: Intact Sensation Left Lower Extremity: Intact Transfers Functional [place] Measure 0=Not Assessed/NA 4=Minimal Assistance 1=Total Assistance 5=Supervision or Setup 2=Maximal Assistance 6=Modified [place] 3=Moderate Assistance 7=Complete [place] Transfers (B, C, W/C) (FIM): 5 Supine to/from Sit: 5 Sit to/from Stand: 5 Takes extra time to complete transfers but does not require assist. Gait Comments/Gait Description Pt stood with FWW and transferred from bed to chair taking 5-6 steps with CGA and sat in chair. Balance Sitting Static: Good Sitting Dynamic: Good Standing Static: Fair Standing Dynamic: Fair Treatment Pt up in chair post treatment with oxygen in situ and chair alarm activated. Assessment/Needs Pt presents with decreased functional strength and mobility. He will benefit from short term PT to work on safety to allow him to return home at his PLOF. Rehab Potential: Good PT Halfway Goals Halfway Goals PT Halfway Goals Time Frame: Dec 21, 2017 Transfers (B,C,W/C) (FIM): 6 Gait (FIM): 6 PT Plan Problem List Problem List: Activity Tolerance, Functional Strength, Safety, Balance, Gait, Transfer Treatment/Plan Treatment Plan: Continue Plan of Care Treatment Plan: Bed Mobility, Education, Functional Activity Roberto, Functional Strength, Gait, Safety, Therapeutic Exercise, Transfers Treatment Duration: Dec 21, 2017 Frequency: 6 times per week Estimated Hrs Per Day: .25 hour per day Patient and/or Family Agrees t: Yes Safety Risks/Education Patient Education: Transfer Techniques, Safety Issues Teaching Recipient: Patient Teaching Methods: Discussion Response to Teaching: Reinforcement Needed Time/GCodes Time In: 1538 Time Out: 1600 Total Billed Treatment Time: 22 Total Billed Treatment visit EVL 22 DENICE CASTELLON PT Dec 16, 2017 16:03
[2017-12-16 16:59] VITALS: BP 138/75
[2017-12-16 19:24] VITALS: BP 136/76
[2017-12-16] MEDS: ACETAMINOPHEN 325 MG TABLET PO PRN (19:32)
[2017-12-16] MEDS: QUEtiapine 100 MG (SEROquel) TAB IMMEDIATE RELEASE PO SCH (21:31)
[2017-12-17] VITALS: BP 139/72
[2017-12-17] MEDS: cefTRIAXone 1 GM/NS 50 ML IVPB IV SCH ×2 (02:58)
[2017-12-17 04:00] VITALS: BP 140/74
[2017-12-17 04:30] LABS: BASOPHILS % (AUTO) 0 % (0-10); EOSINOPHILS # (AUTO) 0.5 10^3/uL (0.0-0.3); EOSINOPHILS % (AUTO) 4 % (0-10); HEMATOCRIT 40 % (40-54); HEMOGLOBIN 13.3 G/DL (13.3-17.7); LYMPHOCYTES # (AUTO) 2.1 X 10^3 (1.0-4.0); LYMPHOCYTES % (AUTO) 21 % (12-44); MEAN CORPUSCULAR HEMOGLOBIN 32 PG (25-34); MEAN CORPUSCULAR HGB CONC 33 G/DL (32-36); MEAN CORPUSCULAR VOLUME 96 FL (80-99); MEAN PLATELET VOLUME 9.3 FL (7.4-10.4); MONOCYTES # (AUTO) 1.3 X 10^3 (0.0-1.0); MONOCYTES % (AUTO) 13 % (0-12); NEUTROPHILS # (AUTO) 6.5 X 10^3 (1.8-7.8); NEUTROPHILS % (AUTO) 62 % (42-75); PLATELET COUNT 168 10^3/uL (130-400); RED BLOOD COUNT 4.19 10^6/uL (4.35-5.85); WHITE BLOOD COUNT 10.4 10^3/uL (4.3-11.0)
[2017-12-17] MEDS: AZITHROMYCIN 500 MG/NS 250 ML IVPB IV SCH ×2 (04:33)
[2017-12-17 05:08] LABS: BUN/CREATININE RATIO 19; CALCIUM 8.7 MG/DL (8.5-10.1); CARBON DIOXIDE 17 MMOL/L (21-32); CHLORIDE 110 MMOL/L (98-107); CREATININE SERUM 0.75 MG/DL (0.60-1.30); GFR ESTIMATED > 60; GLUCOSE 96 MG/DL (70-105); POTASSIUM 3.6 MMOL/L (3.6-5.0); SODIUM 140 MMOL/L (135-145)
[2017-12-17 08:00] VITALS: BP 156/82
[2017-12-17] MEDS ORDERED: AZIT250T12 PO (08:17)
--- NOTE | 2017-12-17 08:24 | D/C HH Face to Face Order ---
D/C Face to Face Orders Instructions for Patient [facility] Patient Instructions/FollowUp: ----complete azithromycin prescription ---resume home medications ---monitor for any new seizures ---participate in PT/OT with Home Health Physician to follow Patient: Oliver Wagner MD Discharge Diet for Home: Regular Diet Patient Problems: weakness debility fall risk pneumonia seizures poor vision Patient Data-Allergies,Ht & Wt Patient Allergies: Coded Allergies: No Known Drug Allergies (Unverified , 09/01/16) Height (Feet): 6 Height (Inches): 0.00 Weight (Pounds): 220 Weight (Ounces): 0.0 Home Health Need/Face to Face Date of Face to Face: Dec 17, 2017 Clinical Findings: Generalized weakness and fatigue, Instability, Muscle weakness, Unsteady gait I have seen Pt [id number]: Yes Discharged To: Home Diagnosis/Conditions: weakness debility fall risk pneumonia seizures poor vision Problems/Diagnosis/Condition: (1) Malaise and fatigue (2) History of CVA (cerebrovascular accident) (3) Altered mental status (4) Seizure disorder Patient is Homebound due to: [place] fall risk due to instabilty, Muscle weakness poor vision Homebound Status Due to the above stated illness, injury or surgical procedure (medical condition or diagnosis) and associated clinical findings, the patient is homebound because of his/her inability to leave home except with aid of a supportive device and/or person AND leaving the home requires a considerable and taxing effort or is medically contraindicated. Pt req the following assistanc: Aid of another person, Walker Home Health Nursing Orders Home Health Services Order: Nursing Services, Clinical Team Lead-Evaluate & Treat (bathing aid 3x weekly), Physical Therapy-Evaluate & Treat Home Health Infusion Therapy Line Start Date: Dec 16, 2017 Line Start Time: 0543 Line Type: none- d/c iv on discharge from hospital Site Location: Therapy Orders Therapy Orders: OT (must have SN or PT order), Physical Therapy Therapy Specific Orders: Gait training, Increase strength/endurance Certify Stmt I certify that this patient is under my care and that I, a nurse practitioner or a physician; a social research assistant working with me, had a face to face encounter that - meets the physician face to face encounter requirements with this patient as dated. OLIVER WAGNER MD Dec 17, 2017 08:24
--- NOTE | 2017-12-17 08:31 | Discharge Summary ---
Diagnosis/Chief Complaint Date of Admission Dec 15, 2017 at 03:26 Date of Discharge Dec 17 2017 Admission Diagnosis Admission Diagnosis Altered mental status- LLL Pneumonia- seizures- COPD- hard of hearing- Depression- CAD- HTN- h/o stroke- weakness- Discharge Diagnosis Altered mental status- LLL Pneumonia- seizures- COPD- hard of hearing- Depression- CAD- HTN- h/o stroke- weakness- Reason Hospital Visit 77-year-old male admitted for altered mental status of multiple days duration. Patient's reports he said a couple seizures lately and he just hasn't came out of them as he usually does, so she decided to bring him to the ER. he reports taking his seizure medication as prescribed but is unsure about the medicine the past day. Of note patient does have altered mental status when he gets a urinary tract infection. Urinalysis on this admission though did not indicate an infection. White blood cells are elevated which may be related to his recent seizures. Patient is not following commands very well and yells out at staff on occasion. Patient does have a history of COPD of which he is on 2 L of oxygen at baseline but does not always wear it. patient was placed on Rocephin and azithromycin to cover community-acquired pneumonia. patient was admitted for further evaluation and monitoring. Overall though patient has been doing well at home with his as primary caregiver prior to this he was at medical [facility] but due to financial reasons his brought him home and he has actually done better than when he was at [facility]. 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 Discharge Summary Hospital Course Labs Laboratory Tests 12/15/17 00:30: White Blood Count 14.4H, Neutrophils (%) (Auto) 80H, Lymphocytes (%) (Auto) 11L , Neutrophils # (Auto) 11.6H, Monocytes # (Auto) 1.1H, Activated Partial Thromboplast Time 38H, Sodium Level 134L, Carbon Dioxide Level 16L, Anion Gap 16H, Glucose Level 159H, Magnesium Level 2.9H, Alkaline Phosphatase 166H 12/15/17 00:50: Urine Specific [place] 1.015L, Urine Protein 2+H, Urine RBC (Auto) 2+H, Urine RBC 2-5H, Urine Crystals PRESENTH, Urine Amorphous Sediment RARE PETE URATESH 12/15/17 05:36: White Blood Count 15.0H, Neutrophils # (Auto) 10.6H, Monocytes # (Auto) 2.0H, Monocytes (%) (Auto) 13H 12/15/17 05:56: Carbon Dioxide Level 16L, Anion Gap 16H, Glucose Level 121H, Alkaline Phosphatase 162H 12/17/17 04:15: Red Blood Count 4.19L, Monocytes (%) (Auto) 13H, Monocytes # (Auto) 1.3H, Eosinophils # (Auto) 0.5H, Chloride Level 110H, Carbon Dioxide Level 17L Procedures None. Discharge Physical Examination Allergies: Coded Allergies: No Known Drug Allergies (Unverified , 09/01/16) Vitals & I&Os Vital Signs Date Time Temp Pulse Resp B/P (MAP) Pulse Ox O2 Delivery O2 Flow Rate FiO2 12/17/17 07:19 Nasal Cannula 2.00 12/17/17 04:00 97.8 58 18 140/74 (96) 93 Discharge Home Medications Reviewed and agree with Discharge Medication list on patient's Discharge Instruction sheet Instructions to Patient/Family Please see electronic discharge instructions given to patient. Clinical Quality Measures DVT/VTE Risk/Contraindication: Risk Factor Score Per Nursin RFS Level Per Nursing on Admit: 4+=Very High BRYANT WAGNER MD Dec 17, 2017 08:31
[2017-12-17] MEDS: SERTRALINE 100 MG (ZOLOFT) TAB PO SCH (09:31)
[2017-12-17] MEDS: TAMSULOSIN 0.4 MG (FLOMAX) CAP PO SCH (09:32)
[2017-12-17] MEDS: LOSARTAN 100 MG (COZAAR) TABLET PO SCH (09:32)
[2017-12-17] MEDS: LEVETIRACETAM 500 MG (KEPPRA) TAB PO SCH (09:32)
[2017-12-17] MEDS: KCL 20 MEQ TAB (K-DUR) PO SCH (09:32)
[2017-12-17] MEDS: PROPRANOLOL 20 MG (INDERAL) TABLET PO SCH (09:33)
[2017-12-17] MEDS: PHENYTOIN 100 MG (DILANTIN) CAP PO SCH (09:38)
[2017-12-17] MEDS ORDERED: FLU QUADRIvalent (5+ YOA) 2018-2019 (AFLURIA) 0.5 ML IM ONE ×2 (10:34→10:45)
--- NOTE | 2017-12-17 10:47 | Physical Therapy Daily Note ---
PT Daily Note-Current Subjective PT awake in recliner when PT arrived. Goyo reported he just finished his shower and that he was ready to get up and walk with PT. Pain Numeric Pain Scale: 0-No Pain Location: No Pain Reported Mental Status Patient Orientation: Normal For Age Transfers Functional [place] Measure 0=Not Assessed/NA 4=Minimal Assistance 1=Total Assistance 5=Supervision or Setup 2=Maximal Assistance 6=Modified [place] 3=Moderate Assistance 7=Complete IndependenceIRFPAI Quality Coding Scale 6 Independent with activity with or without an assistive device 5 Patient requires set up or clean up by helper. Patient completes activity by themselves 4 Supervision or touching assist (CGA). [place] provide cues , steadying assist 3 The helper provides less than half the effort to complete the activity 2 The helper provides more than half the effort to complete the activity 1 Dependent. The helper does all the effort to complete an activity 7 Patient refused to complete or attempt activity 9 The patient did not perform the activity before the current illness or injury 88 Not attempted due to Medical conditions or safety concerns Transfers (B, C, W/C) (FIM): 4 Supine to/from Sit: 4 Weight Bearing Right Lower Extremity: Right Weight Bearing/Tolerated Left Lower Extremity: Left Weight Bearing/Tolerated Gait Training Gait (FIM): 4 Distance (FIM): 3=150 ft Distance: 150' Gait Level of Assist: 4 Gait Persons Needed: 1 Gait Assistive Device: FWW Assessment Pt was able to ambulate for 150' with a FWW requiring CGA. Patient stated that the distance was a little far for him but did not show any signs of distress when returning to his room. PT Ball Warper Tender Goals Mcfp Goals PT Ball Warper Tender Goals Time Frame: Dec 21, 2017 Transfers (B,C,W/C) (FIM): 6 Gait (FIM): 6 PT Plan Treatment/Plan Treatment Plan: Discontinue PT Treatment Plan: Bed Mobility, Education, Functional Activity Roberto, Functional Strength, Gait, Safety, Therapeutic Exercise, Transfers Treatment Duration: Dec 21, 2017 Frequency: 6 times per week Estimated Hrs Per Day: .25 hour per day Patient and/or Family Agrees t: Yes Time/GCodes Time In: 1016 Time Out: 1028 Total Billed Treatment Time: 12 Total Billed Treatment 1 visit FA - 12' TANG RODRIGUEZ PT Dec 17, 2017 10:47
[2017-12-17 11:08] VITALS: BP 153/77
--- NOTE | 2017-12-17 14:37 | Speech Therapy Daily Note ---
Speech Daily Progress Note Subjective Date Seen by Provider: Dec 17, 2017 Time Seen by Provider: 09:05 Pt in bed eating. Pain Numeric Pain Scale: 0-No Pain Objective Clinical observation of pt eating breakfast. Did not observe any signs/ symptoms of aspiration. Did not observe any unsafe eating behaviors. Assessment Assessment Current Status: Good Progress Treatment Plan Discontinue ST (Pt was discharged today.) Speech Short Term Goals Short Term Goals Short Term Goals Pt will tolerate recommended diet with no s/s of aspiration. MET 12/17/2017 Time Frame-ST week Speech Merchandise Flow Manager Goals Merchandise Flow Manager Goals Pt will tolerate least restrictive diet with no s/s of aspiration. NOT 2017. Pt was discharged today. Time Frame: 1 week Speech-Plan Patient/Family Goals Patient/Family Goals: to go home Treatment Plan Speech Therapy Treatment Plan: Discontinue ST Saw pt for only session of skilled ST. Pt was discharged today. Frequency: Modified Program (IRF) (0) Estimated Hrs Per Day: Other Rehab Potential: Good Time Speech Therapy Time In: 09:05 Speech Therapy Time Out: 09:20 Total Billed Time: 15 Billed Treatment Time 1, DYST ELE Richter Dec 17, 2017 14:37
== END 2017-12-17 12:05 | disposition home health service (06) | DRG 194 ==
LOC: EDUNIT# 00:26 → ER 00:27 → 4TH 03:26
PROVIDERS: ADMIT Family Medicine; ATTEND Family Medicine
DX: J18.1 Lobar pneumonia, unspecified organism (principal); R41.82 Altered mental status, unspecified; G40.909 Epilepsy, unspecified, not intractable, without status epilepticus; I69.398 Other sequelae of cerebral infarction; H54.7 Unspecified visual loss; F03.91 Unspecified dementia, unspecified severity, with behavioral disturbance; G20 Parkinson's disease; I65.23 Occlusion and stenosis of bilateral carotid arteries; Z66 Do not resuscitate; J44.9 Chronic obstructive pulmonary disease, unspecified; I25.10 Atherosclerotic heart disease of native coronary artery without angina pectoris; I10 Essential (primary) hypertension; R33.9 Retention of urine, unspecified; K44.9 Diaphragmatic hernia without obstruction or gangrene; M19.91 Primary osteoarthritis, unspecified site; F32.9 Major depressive disorder, single episode, unspecified; L40.9 Psoriasis, unspecified; Z95.5 Presence of coronary angioplasty implant and graft; Z87.891 Personal history of nicotine dependence; Z23 Encounter for immunization
CPT/HCPCS: 36415; 51701; 70450; 70496; 70498; 71045; 80048; 80053; 80185; 81000; 82962; 83605; 83735; 84443; 84484; 85025; 85610; 85730; 87040; 87804; 90471; 90686; 93005; 93041; 96365; 96375

== ENCOUNTER 2017-12-24 08:42 | Emergency (ER) | payer MEDICARE ==
[~2017-12-24] VITALS: Ht 180.3 cm; Wt 95.3 kg
[~2017-12-24 08:42] MED LIST changes: +AZIT250T12 PO
[2017-12-24] MEDS ORDERED: NS IV 1000 ML 1,000 ML IV ONE ×2 (08:51→10:54)
[2017-12-24 09:26] LABS: BASOPHILS % (AUTO) 0 % (0-10); EOSINOPHILS # (AUTO) 0.4 10^3/uL (0.0-0.3); EOSINOPHILS % (AUTO) 3 % (0-10); HEMATOCRIT 43 % (40-54); HEMOGLOBIN 14.1 G/DL (13.3-17.7); LYMPHOCYTES # (AUTO) 1.2 X 10^3 (1.0-4.0); LYMPHOCYTES % (AUTO) 10 % (12-44); MEAN CORPUSCULAR HEMOGLOBIN 32 PG (25-34); MEAN CORPUSCULAR HGB CONC 33 G/DL (32-36); MEAN CORPUSCULAR VOLUME 96 FL (80-99); MEAN PLATELET VOLUME 9.5 FL (7.4-10.4); MONOCYTES # (AUTO) 1.5 X 10^3 (0.0-1.0); MONOCYTES % (AUTO) 12 % (0-12); NEUTROPHILS # (AUTO) 9.2 X 10^3 (1.8-7.8); NEUTROPHILS % (AUTO) 75 % (42-75); PLATELET COUNT 210 10^3/uL (130-400); RED BLOOD COUNT 4.47 10^6/uL (4.35-5.85); RED CELL DISTRIBUTION WIDTH 14.2 % (10.0-14.5); WHITE BLOOD COUNT 12.3 10^3/uL (4.3-11.0)
--- NOTE | 2017-12-24 09:32 | ED GI ---
General Chief Complaint: Abdominal/GI Problems Stated Complaint: DIARRHEA Nursing Triage Note: PT ASSISTED OUT OF CAR BY STAFF ET TAKEN TO ROOM 10 BY W/C. PT HAS HAD DIARRHEA FOR 2 WEEKS ET ABD PAIN STARTED THIS AM. Sepsis Screen: No Definite Risk Source of Information: Patient Exam Limitations: No Limitations History of Present Illness Date Seen by Provider: Dec 24, 2017 Time Seen by Provider: 09:15 Initial Comments Here with report of diarrhea on and off for the last couple weeks but reports synagogue over the last couple days. States that he had 3 or 4 episodes yesterday and one today. Arrives weak. Denies nausea or vomiting. Denies fever. Currently on metronidazole for concerns for C. difficile. Denies chest pain or breathing problems. Timing/Duration: 1 Week, Changing Over Time, Getting Worse Severity/Quality: Moderate, Cramping, Other (also complains of hunger pain) Location: Generalized Abdomen Radiation: No Radiation Activities at Onset: None Modifying Factors: Worsens With Defecating Associated Symptoms: No Back Pain, No Chest Pain, No Fever/Chills; Nausea/ Vomiting; No Shortness of Air, No Swelling/Mass in Abdomen, No Weakness Allergies and Home Medications Allergies Coded Allergies: No Known Drug Allergies (Unverified , 09/01/16) Home Medications Azithromycin 250 Mg Tablet, 250 MG PO DAILY Prescribed by: BRYANT WAGNER on 12/17/17 0817 Cholestyramine (with Sugar) 4 Gm Powd.pack, 4 GM PO BID PRN for DIARRHEA, ( Reported) Levetiracetam 500 Mg Tablet, 500 MG PO BID, (Reported) Losartan Potassium 100 Mg Tablet, 100 MG PO DAILY, (Reported) Phenytoin Sodium Extended 100 Mg Capsule, 200 MG PO BID, (Reported) TAKES 2 (100 MG) CAPSULES Potassium Chloride 20 Meq Tablet.er, 20 MEQ PO DAILY, (Reported) Propranolol HCl 40 Mg Tablet, 40 MG PO BID, (Reported) Quetiapine Fumarate 100 Mg Tablet, 100 MG PO HS, (Reported) Sertraline HCl 100 Mg Tablet, 100 MG PO DAILY, (Reported) Tamsulosin HCl 0.4 Mg Cap.er.24h, 0.4 MG PO DAILY, (Reported) Patient Home Medication List Home Medication List Reviewed: Yes Review of Systems Review of Systems Constitutional: see HPI; No chills, No fever EENTM: No Symptoms Reported Respiratory: No Symptoms Reported Cardiovascular: Denies Chest Pain, Denies Lightheadedness (is) Gastrointestinal: Denies Abdominal Pain; Nausea; Denies Vomiting Musculoskeletal: no symptoms reported Skin: no symptoms reported Psychiatric/Neurological: Anxiety; Denies Headache All Other Systems Reviewed Negative Unless Noted: Yes Past Fwflofj-Irhzzb-Itghxh Hx Past Med/Social Hx: Reviewed Nursing Past Med/Soc Hx Patient Social History Type Used: Cigarettes, Pipe Former Smoker, Quit: Feb 14, 2011 2nd Hand Smoke Exposure: No Recent Foreign Travel: No Contact w/Someone Who Travel: No Recent Infectious Disease Expo: No Recent Hopitalizations: No Physical Abuse: No Sexual Abuse: No Immunizations Up To Date Tetanus Booster (TDap): Less than 5yrs PED Vaccines UTD: No Date of Pneumonia Vaccine: June 10, 2012 Date of Influenza Vaccine: Nov 09, 2016 Seasonal Allergies Seasonal Allergies: No Past Medical History Surgeries: Yes (BOOP-LUNG SURGERY, CATARACTS, DETACHED RETINA; HERNIA REPAIR ) Abdominal, Cardiac, Coronary Stent, Eye Surgery, Tonsillectomy Respiratory: Yes COPD Currently Using CPAP: No Currently Using BIPAP: No Cardiac: Yes Coronary Artery Disease, Hypertension Neurological: Yes (DEMENTIA WITH BEHAVIOR DISTURBANCE) Dementia, Parkinson's Disease, Seizure Disorder, Stroke Reproductive Disorders: No Sexually Transmitted Disease: No HIV/AIDS: No Genitourinary: Yes (urinary retention) Prostate Problems Gastrointestinal: Yes Abdominal Hernia, Diverticulosis, C-Diff, Hiatal Hernia Musculoskeletal: Yes (GENERALIZED WEAKNESS AND FALLS) Arthritis Endocrine: No HEENT: Yes (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) Cataract, Eye Injury Loss of Vision: Bilateral Hearing Impairment: Hard of Hearing Cancer: No Did You Recieve Any Treatments: No Psychosocial: Yes Depression Integumentary: Yes Psoriasis Blood Disorders: No Adverse Reaction/Blood Tranf: No Family Medical History Reviewed Nursing Family Hx Cardiovascular disease 19 FATHER, Onset:Unknown Cataracts 19 MOTHER, Onset:Unknown FH: stomach cancer 19 MOTHER, Onset:Unknown Glaucoma 19 MOTHER, Onset:Unknown CAD Over 55 Years Old Physical Exam Vital Signs Vital Signs - First Documented 12/24/17 08:42 Temp 96.8 Pulse 65 Resp 24 B/P (MAP) 166/91 (116) Pulse Ox 94 O2 Delivery Room Air Capillary Refill : Less Than 3 Seconds Height/Weight/BMI Height: 5'11.00" Weight: 210lbs. 0.0oz. 95.068750ei; 29.8 BMI Method:Estimated General Appearance: WD/WN, no apparent distress HEENT: PERRL/EOMI, pharynx normal Neck: non-tender, full range of motion, supple, normal inspection Respiratory: lungs clear, normal breath sounds Cardiovascular: regular rate, rhythm, no murmur Peripheral Pulses: 2+ Dorsalis Pedis (R), 2+ Left Dors-Pedis (L), 2+ Radial Pulses (R), 2+ Radial Pulses (L) Gastrointestinal: non tender, soft Extremities: non-tender, normal inspection Back: normal inspection, no CVA tenderness, no vertebral tenderness Neurologic/Psychiatric: alert, normal mood/affect Skin: normal color, warm/dry Progress/Results/Core Measures Results/Orders Lab Results Laboratory Tests Test 12/24/17 09:10 12/24/17 12:10 Range/Units White Blood Count 12.3 H 4.3-11.0 10^3/uL Red Blood Count 4.47 4.35-5.85 10^6/uL Hemoglobin 14.1 13.3-17.7 G/DL Hematocrit 43 40-54 % Mean Corpuscular Volume 96 80-99 FL Mean Corpuscular Hemoglobin 32 25-34 PG Mean Corpuscular Hemoglobin Concent 33 32-36 G/DL Red Cell Distribution Width 14.2 10.0-14.5 % Platelet Count 210 130-400 10^3/uL Mean Platelet Volume 9.5 7.4-10.4 FL Neutrophils (%) (Auto) 75 42-75 % Lymphocytes (%) (Auto) 10 L 12-44 % Monocytes (%) (Auto) 12 0-12 % Eosinophils (%) (Auto) 3 0-10 % Basophils (%) (Auto) 0 0-10 % Neutrophils # (Auto) 9.2 H 1.8-7.8 X 10^3 Lymphocytes # (Auto) 1.2 1.0-4.0 X 10^3 Monocytes # (Auto) 1.5 H 0.0-1.0 X 10^3 Eosinophils # (Auto) 0.4 H 0.0-0.3 10^3/uL Basophils # (Auto) 0.0 0.0-0.1 10^3/uL Sodium Level 138 135-145 MMOL/L Potassium Level 4.4 3.6-5.0 MMOL/L Chloride Level 109 H 98-107 MMOL/L Carbon Dioxide Level 18 L 21-32 MMOL/L Anion Gap 11 5-14 MMOL/L Blood Urea Nitrogen 10 7-18 MG/DL Creatinine 0.76 0.60-1.30 MG/DL Estimat Glomerular Filtration Rate > 60 BUN/Creatinine Ratio 13 Glucose Level 98 70-105 MG/DL Calcium Level 8.8 8.5-10.1 MG/DL Corrected Calcium 8.7 8.5-10.1 MG/DL Total Bilirubin 0.5 0.1-1.0 MG/DL Aspartate Amino Transf (AST/SGOT) 23 5-34 U/L Alanine Aminotransferase (ALT/SGPT) 18 0-55 U/L Alkaline Phosphatase 147 H 40-136 U/L Total Protein 7.7 6.4-8.2 GM/DL Albumin 4.1 3.2-4.5 GM/DL Urine Color YELLOW Urine Clarity SLIGHTLY CLOUDY Urine pH 6 5-9 Urine Specific [place] 1.015 L 1.016-1.022 Urine Protein NEGATIVE NEGATIVE Urine Glucose (UA) NEGATIVE NEGATIVE Urine Ketones NEGATIVE NEGATIVE Urine Nitrite NEGATIVE NEGATIVE Urine Bilirubin NEGATIVE NEGATIVE Urine Urobilinogen NORMAL NORMAL MG/DL Urine Leukocyte Esterase 2+ H NEGATIVE Urine RBC (Auto) 1+ H NEGATIVE Urine RBC RARE /HPF Urine WBC 0-2 /HPF Urine Squamous Epithelial Cells 2-5 /HPF Urine Crystals NONE /LPF Urine Bacteria NEGATIVE /HPF Urine Casts NONE /LPF Urine Mucus NEGATIVE /LPF Urine Culture Indicated NO My Orders Orders - RAVIN MCCRACKEN MD Cbc With Automated Diff (12/24/17 08:51) Comprehensive Metabolic Panel (12/24/17 08:51) Ua Culture If Indicated (12/24/17 08:51) Saline Lock/Iv-Start (12/24/17 08:51) Ns Iv 1000 Ml (Sodium Chloride 0.9%) (12/24/17 08:51) Saline Lock/Iv-Start (12/24/17 10:54) Ns Iv 1000 Ml (Sodium Chloride 0.9%) (12/24/17 10:54) Ns Iv 1000 Ml (Sodium Chloride 0.9%) (12/24/17 10:55) Medications Given in ED Current Medications Medications Dose Ordered Sig/Destiny Route Start Time Stop Time Status Last Admin Dose Admin Sodium Chloride 1,000 ml @ 0 mls/hr Q0M ONCE IV 12/24/17 08:51 12/24/17 08:53 DC 12/24/17 09:08 1,000 MLS/HR Sodium Chloride 1,000 ml @ 0 mls/hr Q0M ONCE IV 12/24/17 10:54 12/24/17 10:55 DC 12/24/17 10:59 1,000 MLS/HR Vital Signs/I&O 12/24/17 08:42 Temp 96.8 Pulse 65 Resp 24 B/P (MAP) 166/91 (116) Pulse Ox 94 O2 Delivery Room Air Blood Pressure Mean: 116 Progress Progress Note : Progress Note Seen and evaluated. IV, labs, UA and normal saline 1 L bolus ordered. Monitor patient. 1130: Patient unable to provide urine. Repeat normal saline 1 L bolus has been ordered. Monitor patient. 1253: Repeat peak normal saline complete. Patient has not had any diarrhea within the timeframe of the ER visit. UA completed and there is likely some concentration but no infection. Overall no significant findings. No indication for admission. Patient will continue outpatient treatment of his diarrhea with currently prescribed medications. Discharged home with return precautions. Patient and family verbalize understanding instructions and agreement with plan. Departure Impression Primary Impression: Diarrhea Qualified Codes: R19.7 - Diarrhea, unspecified Additional Impression: Dehydration Disposition: 01 HOME, SELF-CARE Condition: Improved Departure-Patient Inst. Decision time for Depature: 12:55 Referrals: BRYANT WAGNER MD (PCP/Family) Primary Care Physician Patient Instructions: Acute Abdomen (Belly Pain), Adult (DC), Dehydration, Adult (DC), Diarrhea in Adolescents and Adults Add. Discharge Instructions: All discharge instructions reviewed with patient and/or family. Voiced understanding. Drink plenty of fluids. You may use water down Gatorade, Sprite or mely sherrie are similar to keep hydrated at home. Clear liquid diet and/or light diet and you may advance as tolerated. Follow up with your doctor later this week for recheck and further evaluation. Return for worse pain, fever, vomiting, weakness, breathing problems or other concerns as needed. Copy Copies To 1: BRYANT WAGNER MD, TIMOTHY D MD Dec 24, 2017 09:32
[2017-12-24 09:45] LABS: ALANINE AMINOTRANSFERASE 18 U/L (0-55); ALBUMIN 4.1 GM/DL (3.2-4.5); ALKALINE PHOSPHATASE 147 U/L (40-136); BILIRUBIN,TOTAL 0.5 MG/DL (0.1-1.0); BUN/CREATININE RATIO 13; CALCIUM 8.8 MG/DL (8.5-10.1); CARBON DIOXIDE 18 MMOL/L (21-32); CHLORIDE 109 MMOL/L (98-107); CREATININE SERUM 0.76 MG/DL (0.60-1.30); GFR ESTIMATED > 60; GLUCOSE 98 MG/DL (70-105); POTASSIUM 4.4 MMOL/L (3.6-5.0); SODIUM 138 MMOL/L (135-145); TOTAL PROTEIN 7.7 GM/DL (6.4-8.2)
[2017-12-24] MEDS ORDERED: NS IV 1000 ML 1,000 ML ONE (10:55)
[2017-12-24 12:24] LABS: BILIRUBIN,URINE NEGATIVE (NEGATIVE); CLARITY,URINE SLIGHTLY CLOUDY; COLOR,URINE YELLOW; GLUCOSE, URINE (UA) NEGATIVE (NEGATIVE); KETONES,URINE NEGATIVE (NEGATIVE); LEUKOCYTE ESTERASE ,URINE 2+ (NEGATIVE); NITRITE,URINE NEGATIVE (NEGATIVE); PH,URINE 6 (5-9); PROTEIN,URINE NEGATIVE (NEGATIVE); UROBILINOGEN,URINE NORMAL (NORMAL)
[2017-12-24 12:41] LABS: BACTERIA,URINE NEGATIVE /HPF; RBC,URINE RARE /HPF; WBC,URINE 0-2 /HPF
[2017-12-24 13:08] VITALS: BP 166/91
== END 2017-12-24 13:13 | disposition home or self-care (01) ==
LOC: EDUNIT# 08:42 → ER 08:43
DX: R19.7 Diarrhea, unspecified (principal); E86.0 Dehydration; J44.9 Chronic obstructive pulmonary disease, unspecified; I25.10 Atherosclerotic heart disease of native coronary artery without angina pectoris; I10 Essential (primary) hypertension; G20 Parkinson's disease; F03.90 Unspecified dementia, unspecified severity, without behavioral disturbance, psychotic disturbance, mood disturbance, and anxiety; G40.909 Epilepsy, unspecified, not intractable, without status epilepticus; F32.9 Major depressive disorder, single episode, unspecified; Z87.448 Personal history of other diseases of urinary system; Z86.73 Personal history of transient ischemic attack (TIA), and cerebral infarction without residual deficits; Z82.49 Family history of ischemic heart disease and other diseases of the circulatory system; Z80.0 Family history of malignant neoplasm of digestive organs; Z87.891 Personal history of nicotine dependence; Z87.19 Personal history of other diseases of the digestive system; Z98.890 Other specified postprocedural states
CPT/HCPCS: 36415; 80053; 81000; 85025

== ENCOUNTER 2018-01-20 18:58 | Emergency (ER) | payer MEDICARE ==
[~2018-01-20] VITALS: Ht 180.3 cm; Wt 99.8 kg
[2018-01-20 20:01] LABS: BASOPHILS # (AUTO) 0.1 10^3/uL (0.0-0.1); BASOPHILS % (AUTO) 1 % (0-10); EOSINOPHILS # (AUTO) 0.6 10^3/uL (0.0-0.3); EOSINOPHILS % (AUTO) 6 % (0-10); HEMATOCRIT 45 % (40-54); HEMOGLOBIN 14.8 G/DL (13.3-17.7); LYMPHOCYTES # (AUTO) 1.8 X 10^3 (1.0-4.0); LYMPHOCYTES % (AUTO) 16 % (12-44); MEAN CORPUSCULAR HEMOGLOBIN 31 PG (25-34); MEAN CORPUSCULAR HGB CONC 33 G/DL (32-36); MEAN CORPUSCULAR VOLUME 96 FL (80-99); MEAN PLATELET VOLUME 9.4 FL (7.4-10.4); MONOCYTES # (AUTO) 1.1 X 10^3 (0.0-1.0); MONOCYTES % (AUTO) 11 % (0-12); NEUTROPHILS # (AUTO) 7.2 X 10^3 (1.8-7.8); NEUTROPHILS % (AUTO) 67 % (42-75); PLATELET COUNT 257 10^3/uL (130-400); RED BLOOD COUNT 4.72 10^6/uL (4.35-5.85); RED CELL DISTRIBUTION WIDTH 14.1 % (10.0-14.5); WHITE BLOOD COUNT 10.8 10^3/uL (4.3-11.0)
--- NOTE | 2018-01-20 20:11 | ED General ---
General Chief Complaint: Cardiac/General Problems Stated Complaint: HYPERTENSION Nursing Triage Note: PT PRESENTS TO ER WITH COMPLAINT OF HIGH BLOOD PRESSURE. STATES IT WAS 114/104, TAKEN BY HOME HEALTH NURSE. Nursing Sepsis Screen: No Definite Risk Source of Information: Patient, Family Exam Limitations: No Limitations History of Present Illness Date Seen by Provider: Jan 20, 2018 Time Seen by Provider: 19:20 Initial Comments This 77-year-old gentleman presents to the emergency room with complaints of hypertension. A home caregiver noted the hypertension and called his nurse. He was deferred to the emergency room. His also notes that he has had some shortness of breath recently. He is generally weak and has trouble transferring to and from the wheelchair. He is afebrile. He believes he has been taking his medications appropriately. Oliver Wagner is his primary care provider. Allergies and Home Medications Allergies Coded Allergies: No Known Drug Allergies (Unverified , 09/01/16) Home Medications Azithromycin 250 Mg Tablet, 250 MG PO DAILY Prescribed by: OLIVER WAGNER on 12/17/17 0817 Cholestyramine (with Sugar) 4 Gm Powd.pack, 4 GM PO BID PRN for DIARRHEA, ( Reported) Levetiracetam 500 Mg Tablet, 500 MG PO BID, (Reported) Losartan Potassium 100 Mg Tablet, 100 MG PO DAILY, (Reported) Phenytoin Sodium Extended 100 Mg Capsule, 200 MG PO BID, (Reported) TAKES 2 (100 MG) CAPSULES Potassium Chloride 20 Meq Tablet.er, 20 MEQ PO DAILY, (Reported) Propranolol HCl 40 Mg Tablet, 40 MG PO BID, (Reported) Quetiapine Fumarate 100 Mg Tablet, 100 MG PO HS, (Reported) Sertraline HCl 100 Mg Tablet, 100 MG PO DAILY, (Reported) Tamsulosin HCl 0.4 Mg Cap.er.24h, 0.4 MG PO DAILY, (Reported) Patient Home Medication List Home Medication List Reviewed: Yes Review of Systems Review of Systems Constitutional: see HPI, weakness EENTM: no symptoms reported Respiratory: see HPI Cardiovascular: see HPI Gastrointestinal: no symptoms reported Genitourinary: no symptoms reported Musculoskeletal: see HPI Skin: no symptoms reported Psychiatric/Neurological: No Symptoms Reported Hematologic/Lymphatic: No Symptoms Reported Immunological/Allergic: no symptoms reported Past Hfetxbj-Vdqelw-Tppnru Hx Past Med/Social Hx: Reviewed Nursing Past Med/Soc Hx Patient Social History Alcohol Use: Denies Use Recreational Drug Use: No Type Used: Cigarettes, Pipe Former Smoker, Quit: Feb 14, 2011 2nd Hand Smoke Exposure: No Recent Foreign Travel: No Contact w/Someone Who Travel: No Recent Infectious Disease Expo: No Recent Hopitalizations: No Physical Abuse: No Sexual Abuse: No Immunizations Up To Date Tetanus Booster (TDap): Less than 5yrs PED Vaccines UTD: No Date of Pneumonia Vaccine: June 10, 2012 Date of Influenza Vaccine: Nov 09, 2016 Seasonal Allergies Seasonal Allergies: No Past Medical History Surgeries: Yes (BOOP-LUNG SURGERY, CATARACTS, DETACHED RETINA; HERNIA REPAIR ) Abdominal, Cardiac, Coronary Stent, Eye Surgery, Tonsillectomy Respiratory: Yes COPD Currently Using CPAP: No Currently Using BIPAP: No Cardiac: Yes Coronary Artery Disease, Hypertension Neurological: Yes (DEMENTIA WITH BEHAVIOR DISTURBANCE) Dementia, Parkinson's Disease, Seizure Disorder, Stroke Reproductive Disorders: No Sexually Transmitted Disease: No HIV/AIDS: No Genitourinary: Yes (urinary retention) Prostate Problems Gastrointestinal: Yes Abdominal Hernia, Diverticulosis, C-Diff, Hiatal Hernia Musculoskeletal: Yes (GENERALIZED WEAKNESS AND FALLS) Arthritis Endocrine: No HEENT: Yes (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) Cataract, Eye Injury Loss of Vision: Bilateral Hearing Impairment: Hard of Hearing Cancer: No Did You Recieve Any Treatments: No Psychosocial: Yes Depression Integumentary: Yes Psoriasis Blood Disorders: No Adverse Reaction/Blood Tranf: No Family Medical History Reviewed Nursing Family Hx Cardiovascular disease 19 FATHER, Onset:Unknown Cataracts 19 MOTHER, Onset:Unknown FH: stomach cancer 19 MOTHER, Onset:Unknown Glaucoma 19 MOTHER, Onset:Unknown CAD Over 55 Years Old Physical Exam Vital Signs Vital Signs - First Documented 01/20/18 19:04 Temp 97.3 Pulse 76 Resp 20 B/P (MAP) 161/92 (115) Pulse Ox 96 O2 Delivery Room Air Capillary Refill : Less Than 3 Seconds Height, Weight, BMI Height: 5'11.00" Weight: 220lbs. 0.0oz. 99.402354hw; 29.8 BMI Method:Stated General Appearance: No Apparent Distress, WD/WN, Other (Weak) HEENT: PERRL/EOMI, Normal ENT Inspection, Pharynx Normal Neck: Normal Inspection Respiratory: Lungs Clear, No Accessory Muscle Use, No Respiratory Distress, Decreased Breath Sounds Cardiovascular: Regular Rate, Rhythm, No Murmur, Other (Mild to moderate LE edema) Gastrointestinal: Non Tender, Soft Extremity: Normal Inspection, Non Tender, Swelling Neurologic/Psychiatric: Alert, Oriented x3, No Motor/Sensory Deficits, Normal Mood/Affect, family literacy coordinator II-XII Norm as Tested Skin: Normal Color, Warm/Dry Progress/Results/Core Measures Suspected Sepsis Recent Fever Within 48 Hours: No Infection Criteria Present: None New/Unexplained Altered Menta: No Sepsis Screen: No Definite Risk SIRS Temperature:97.3 Pulse: 76 Respiratory Rate: 20 Laboratory Tests 01/20/18 19:53: White Blood Count 10.8 Blood Pressure 161 /92 Mean: 115 Laboratory Tests 01/20/18 19:53: Creatinine 0.93, Platelet Count 257, Total Bilirubin 0.5 Results/Orders Lab Results Laboratory Tests Test 01/20/18 19:53 01/20/18 21:26 Range/Units White Blood Count 10.8 4.3-11.0 10^3/uL Red Blood Count 4.72 4.35-5.85 10^6/uL Hemoglobin 14.8 13.3-17.7 G/DL Hematocrit 45 40-54 % Mean Corpuscular Volume 96 80-99 FL Mean Corpuscular Hemoglobin 31 25-34 PG Mean Corpuscular Hemoglobin Concent 33 32-36 G/DL Red Cell Distribution Width 14.1 10.0-14.5 % Platelet Count 257 130-400 10^3/uL Mean Platelet Volume 9.4 7.4-10.4 FL Neutrophils (%) (Auto) 67 42-75 % Lymphocytes (%) (Auto) 16 12-44 % Monocytes (%) (Auto) 11 0-12 % Eosinophils (%) (Auto) 6 0-10 % Basophils (%) (Auto) 1 0-10 % Neutrophils # (Auto) 7.2 1.8-7.8 X 10^3 Lymphocytes # (Auto) 1.8 1.0-4.0 X 10^3 Monocytes # (Auto) 1.1 H 0.0-1.0 X 10^3 Eosinophils # (Auto) 0.6 H 0.0-0.3 10^3/uL Basophils # (Auto) 0.1 0.0-0.1 10^3/uL Sodium Level 141 135-145 MMOL/L Potassium Level 4.1 3.6-5.0 MMOL/L Chloride Level 106 98-107 MMOL/L Carbon Dioxide Level 24 21-32 MMOL/L Anion Gap 11 5-14 MMOL/L Blood Urea Nitrogen 13 7-18 MG/DL Creatinine 0.93 0.60-1.30 MG/DL Estimat Glomerular Filtration Rate > 60 BUN/Creatinine Ratio 14 Glucose Level 98 70-105 MG/DL Calcium Level 8.9 8.5-10.1 MG/DL Corrected Calcium 8.7 8.5-10.1 MG/DL Total Bilirubin 0.5 0.1-1.0 MG/DL Aspartate Amino Transf (AST/SGOT) 17 5-34 U/L Alanine Aminotransferase (ALT/SGPT) 18 0-55 U/L Alkaline Phosphatase 159 H 40-136 U/L Troponin I < 0.30 <0.30 NG/ML C-Reactive Protein High Sensitivity 1.62 H 0.00-0.50 MG/DL B-Type Natriuretic Peptide 55.8 <100.0 PG/ML Total Protein 7.5 6.4-8.2 GM/DL Albumin 4.3 3.2-4.5 GM/DL TSH [place] Testing 0.99 0.35-4.94 UIU/ML Urine Color YELLOW Urine Clarity CLEAR Urine pH 6 5-9 Urine Specific [place] 1.020 1.016-1.022 Urine Protein 1+ H NEGATIVE Urine Glucose (UA) NEGATIVE NEGATIVE Urine Ketones NEGATIVE NEGATIVE Urine Nitrite NEGATIVE NEGATIVE Urine Bilirubin NEGATIVE NEGATIVE Urine Urobilinogen NORMAL NORMAL MG/DL Urine Leukocyte Esterase NEGATIVE NEGATIVE Urine RBC (Auto) 1+ H NEGATIVE Urine RBC 0-2 /HPF Urine WBC RARE /HPF Urine Crystals NONE /LPF Urine Bacteria NEGATIVE /HPF Urine Casts NONE /LPF Urine Mucus NEGATIVE /LPF Urine Culture Indicated NO My Orders Orders - JOEL DU MD BNP (01/20/18 19:31) Cbc With Automated Diff (01/20/18 19:) Comprehensive Metabolic Panel (01/20/18:) Thyroid Analyzer (01/20/18:) Troponin I (01/20/18:31) Ua Culture If Indicated (01/20/18:31) Saline Lock/Iv-Start (01/20/18 19:) Ekg Tracing (01/20/18:) Monitor-Rhythm Ecg Trace Only (01/20/18 19:31) Dilantin (Phenytoin) (01/20/18 19:34) Chest 1 View, Ap/Pa Only (01/20/18 20:29) Hs C Reactive Protein (01/20/18 20:33) Bladder Scan (01/20/18 21:30) Vital Signs/I&O Capillary Refill : Less Than 3 Seconds Blood Pressure Mean: 115 Progress Note #1: Time: 21:29 Progress Note Patient's blood pressure has improved some. He has not yet taken his evening blood pressure medications according to his . Workup has been fairly unremarkable so far. UA is still pending. Patient had receive a straight catheter to obtain a urine specimen. Progress Note #2: Time: 22:03 Progress Note Because patient had difficulty urinating, urine was collected by straight catheter. About 200 mL was drained during the catheter. Because there was concern that obstruction might be contributing to his hypertension, the straight catheter was followed by a bladder scan. Minimal residual urine was found. Patient was dismissed home with instructions to take his blood pressure medications immediately upon returning home. ECG Initial ECG Impression Date: Jan 20, 2018 Initial ECG Impression Time: 19:47 Initial ECG Rate: 70 Initial ECG Rhythm: Normal Sinus Initial ECG Impression: Normal Comment Normal sinus rhythm with no ST elevation or depression. Artifact in V1. No significant abnormal intervals or axis deviation. Diagnostic Imaging Diagonstic Imaging: Xray Plain Films/CT/US/NM/MRI: chest Comments Chest x-ray viewed by me and report reviewed. See report below: NAME: MIKEL SELF [facility] REC#: [id number] PT STATUS: REG ER : 1940 PHYSICIAN: JOEL DU MD ADMIT DATE: 01/20/18/ER Draft Date of Exam:01/20/18 CHEST 1 VIEW, AP/PA ONLY Examination: Single view of the chest Indication: Elevated blood pressure. Comparison: Multiple priors, most recent on 12/15/2017. Findings: There is mild linear atelectasis or scarring in the right midlung and left lung base. There is chronic blunting of the right costophrenic angle. The lungs are otherwise clear and the pulmonary vasculature is normal. Low lung volumes are demonstrated. No pneumothorax or significant pleural effusion. The cardiomediastinal silhouette is unchanged. No acute osseous abnormality. Impression: Mild atelectasis in both lungs. Otherwise, no acute chest disease. Dictated on workstation # [id number] Dict: 01/20/182108 Trans: 01/20/182113 [place] [id number] Interpreted by: EDISON LAM DO Departure Impression Primary Impression: Hypertension Qualified Codes: I10 - Essential (primary) hypertension Additional Impressions: Dry skin Pruritus Disposition: HOME, SELF-CARE Condition: Improved Departure-Patient Inst. Decision time for Depature: 21:48 Referrals: OLIVER WAGNER MD (PCP/Family) Primary Care Physician Patient Instructions: High Blood Pressure (DC) Add. Discharge Instructions: Take your blood pressure medications immediately upon returning home. Contact your primary care provider tomorrow morning if your blood pressure is still significantly elevated. Return to care if you experience other significant problems or concerns. For your dry itchy skin, try a moisturizing lotion 2 or 3 times a day. If this is not helpful, you may try a hydrocortisone cream. Discuss with your doctor soon if these measures do not improve your symptoms. All discharge instructions reviewed with patient and/or family. Voiced understanding. Copy Copies To 1: OLIVER WAGNER MD, JOSHUA T MD Jan 20, 2018 20:11
[2018-01-20 20:20] LABS: ALANINE AMINOTRANSFERASE 18 U/L (0-55); ALBUMIN 4.3 GM/DL (3.2-4.5); ALKALINE PHOSPHATASE 159 U/L (40-136); BILIRUBIN,TOTAL 0.5 MG/DL (0.1-1.0); BUN/CREATININE RATIO 14; CALCIUM 8.9 MG/DL (8.5-10.1); CARBON DIOXIDE 24 MMOL/L (21-32); CHLORIDE 106 MMOL/L (98-107); CREATININE SERUM 0.93 MG/DL (0.60-1.30); GFR ESTIMATED > 60; GLUCOSE 98 MG/DL (70-105); POTASSIUM 4.1 MMOL/L (3.6-5.0); SODIUM 141 MMOL/L (135-145); TOTAL PROTEIN 7.5 GM/DL (6.4-8.2)
[2018-01-20 20:39] LABS: TSH (THYROID ANALYZER) 0.99 UIU/ML (0.35-4.94)
--- NOTE | 2018-01-20 21:15 | Diagnostic Imaging Report ---
Examination: Single view of the chest Indication: Elevated blood pressure. Comparison: Multiple priors, most recent on 12/15/2017. Findings: There is mild linear atelectasis or scarring in the right midlung and left lung base. There is chronic blunting of the right costophrenic angle. The lungs are otherwise clear and the pulmonary vasculature is normal. Low lung volumes are demonstrated. No pneumothorax or significant pleural effusion. The cardiomediastinal silhouette is unchanged. No acute osseous abnormality. Impression: Mild atelectasis in both lungs. Otherwise, no acute chest disease. Dictated by: Dictated on workstation # [id number]
[2018-01-20 21:32] LABS: BILIRUBIN,URINE NEGATIVE (NEGATIVE); CLARITY,URINE CLEAR; COLOR,URINE YELLOW; GLUCOSE, URINE (UA) NEGATIVE (NEGATIVE); KETONES,URINE NEGATIVE (NEGATIVE); LEUKOCYTE ESTERASE ,URINE NEGATIVE (NEGATIVE); NITRITE,URINE NEGATIVE (NEGATIVE); PH,URINE 6 (5-9); PROTEIN,URINE 1+ (NEGATIVE); UROBILINOGEN,URINE NORMAL (NORMAL)
[2018-01-20 21:44] LABS: RBC,URINE 0-2 /HPF; WBC,URINE RARE /HPF
[2018-01-20 21:45] LABS: BACTERIA,URINE NEGATIVE /HPF
[2018-01-20 22:10] VITALS: BP 178/102
== END 2018-01-20 22:08 | disposition home or self-care (01) ==
LOC: EDUNIT# 18:58 → ER 19:00
DX: I10 Essential (primary) hypertension (principal); L29.9 Pruritus, unspecified; J44.9 Chronic obstructive pulmonary disease, unspecified; I25.10 Atherosclerotic heart disease of native coronary artery without angina pectoris; G20 Parkinson's disease; F03.91 Unspecified dementia, unspecified severity, with behavioral disturbance; F32.9 Major depressive disorder, single episode, unspecified; G40.909 Epilepsy, unspecified, not intractable, without status epilepticus; Z86.73 Personal history of transient ischemic attack (TIA), and cerebral infarction without residual deficits; Z87.448 Personal history of other diseases of urinary system; Z82.49 Family history of ischemic heart disease and other diseases of the circulatory system; Z80.0 Family history of malignant neoplasm of digestive organs; Z87.891 Personal history of nicotine dependence; Z98.890 Other specified postprocedural states; Z87.19 Personal history of other diseases of the digestive system; Z95.5 Presence of coronary angioplasty implant and graft; Z90.89 Acquired absence of other organs
CPT/HCPCS: 36415; 71045; 80053; 80185; 81000; 83880; 84443; 84484; 85025; 86141; 93005; 93041

== ENCOUNTER 2018-03-12 06:33 | Emergency (ER) | payer MEDICARE ==
[~2018-03-12] VITALS: Ht 180.3 cm; Wt 99.8 kg
[~2018-03-12 06:33] MED LIST changes: +LOSA100T57 PO; -LOSA100T8 PO; +LOSA50TA63 PO; -LOSA50TA7 PO; +METR-145 PO; -METR-197 PO
[2018-03-12] MEDS ORDERED: RT-ALBUTEROL/IPRATROPIUM 3 ML (DUONEB) VIAL ONE (06:38)
[2018-03-12] MEDS ORDERED: RT-ALBUTEROL/IPRATROPIUM 3 ML (DUONEB) VIAL INH ONE (06:45)
[2018-03-12] MEDS ORDERED: LIDOCAINE PF 1% 5 ML (XYLOCAINE) AMP ONE (06:55)
[2018-03-12] MEDS ORDERED: LIDOCAINE BOLUS 100 MG/5 ML (IMS) SYR ONE (06:55)
[2018-03-12 07:08] LABS: BASOPHILS # (AUTO) 0.1 10^3/uL (0.0-0.1); BASOPHILS % (AUTO) 0 % (0-10); EOSINOPHILS # (AUTO) 0.6 10^3/uL (0.0-0.3); EOSINOPHILS % (AUTO) 2 % (0-10); HEMATOCRIT 53 % (40-54); LYMPHOCYTES # (AUTO) 4.2 X 10^3 (1.0-4.0); LYMPHOCYTES % (AUTO) 16 % (12-44); MEAN CORPUSCULAR HEMOGLOBIN 32 PG (25-34); MEAN CORPUSCULAR HGB CONC 34 G/DL (32-36); MEAN CORPUSCULAR VOLUME 93 FL (80-99); MEAN PLATELET VOLUME 9.7 FL (7.4-10.4); MONOCYTES # (AUTO) 1.7 X 10^3 (0.0-1.0); MONOCYTES % (AUTO) 6 % (0-12); NEUTROPHILS # (AUTO) 19.9 X 10^3 (1.8-7.8); NEUTROPHILS % (AUTO) 75 % (42-75); PLATELET COUNT 364 10^3/uL (130-400); RED CELL DISTRIBUTION WIDTH 13.6 % (10.0-14.5); WHITE BLOOD COUNT 26.4 10^3/uL (4.3-11.0)
[2018-03-12] MEDS ORDERED: DIPH25TA31 PO (07:17)
[2018-03-12] MEDS ORDERED: NS IV 1000 ML 1,000 ML ONE (07:18)
[2018-03-12 07:29] LABS: ALANINE AMINOTRANSFERASE 19 U/L (0-55); ALBUMIN 4.8 GM/DL (3.2-4.5); ALKALINE PHOSPHATASE 163 U/L (40-136); BILIRUBIN,TOTAL 0.3 MG/DL (0.1-1.0); BUN/CREATININE RATIO 13; CALCIUM 9.3 MG/DL (8.5-10.1); CARBON DIOXIDE 13 MMOL/L (21-32); CHLORIDE 103 MMOL/L (98-107); CREATINE KINASE 125 U/L (30-200); CREATININE SERUM 0.85 MG/DL (0.60-1.30); GFR ESTIMATED > 60; GLUCOSE 222 MG/DL (70-105); POTASSIUM 4.7 MMOL/L (3.6-5.0); SODIUM 137 MMOL/L (135-145)
[2018-03-12] MEDS ORDERED: PIPERACILLIN SODIUM/TAZOBACTAM 4.5 GM in NS (IVPB) 100 ML IV ONE (07:30)
--- NOTE | 2018-03-12 07:37 | ED Neurological Problem ---
General Chief Complaint: Neuro-Stroke Like Symptoms Stated Complaint: SEIZURE Nursing Triage Note: brought in by [facility], found on ground by mailman approx. 0600 ems reports 2 seizures. pt with brouwn fluid om mouth. last known well time per family [id number]/11/[id number] Nursing Sepsis Screen: No Definite Risk Source: family, EMS, old records Exam Limitations: clinical condition History of Present Illness Date Seen by Provider: Mar 12, 2018 Time Seen by Provider: 06:35 Initial Comments This 77-year-old man is brought to the emergency room via EMS after being found on the ground outside his home by the mailman. Temperature outside at the time of EMS activation was around 45-50. The mailman came to the family's door to notify them and EMS was activated. It is thought that he left the house sometime after 02:00 which is when his grandson went to bed. Last time patient was seen well was 22:30. Family reports he was relatively well yesterday, although he has complained of some recent dizziness. His reports he has had a stroke in 2010. She reports he has some vision deficits related to that stroke. He does have some mild dementia but is normally conversational and functional. Review of his chart notes he has had some serious illnesses in the past including admissions for sepsis. He is also had C. difficile and continues to have intermittent diarrhea. He was recently prescribed Flagyl. He was previously admitted to a [place] [facility] but family brought him back home. His CODE STATUS is DO NOT RESUSCITATE up according to his . Patient is hypothermic with an initial temperature of 93.5. There was no witnessed fall or identified injury but c-collar was placed as a precaution. Fingerstick blood sugar was noted to be 313 during assessment. Patient had a seizure for EMS in route. He appears postictal upon arrival. His reports he has not taken his morning medications including Keppra and Dilantin. Allergies and Home Medications Allergies Coded Allergies: No Known Drug Allergies (Unverified , 09/01/16) Home Medications Levetiracetam 500 Mg Tablet, 500 MG PO BID, (Reported) Losartan Potassium 100 Mg Tablet, 100 MG PO DAILY, (Reported) Phenytoin Sodium Extended 100 Mg Capsule, 200 MG PO BID, (Reported) TAKES 2 (100 MG) CAPSULES Potassium Chloride 20 Meq Tablet.er, 20 MEQ PO DAILY, (Reported) Propranolol HCl 40 Mg Tablet, 40 MG PO BID, (Reported) Quetiapine Fumarate 100 Mg Tablet, 100 MG PO HS, (Reported) Sertraline HCl 100 Mg Tablet, 100 MG PO DAILY, (Reported) Tamsulosin HCl 0.4 Mg Cap.er.24h, 0.4 MG PO DAILY, (Reported) Patient Home Medication List Home Medication List Reviewed: Yes Review of Systems Review of Systems Constitutional: see HPI Eyes: No Symptoms Reported Ears, Nose, Mouth, Throat: no symptoms reported Respiratory: no symptoms reported Cardiovascular: no symptoms reported Gastrointestinal: no symptoms reported Genitourinary: no symptoms reported Musculoskeletal: no symptoms reported Skin: no symptoms reported Psychiatric/Neurological: See HPI Endocrine: No Symptoms Reported Hematologic/Lymphatic: No Symptoms Reported Past Qunmkld-Daittb-Hhqmwb Hx Past Med/Social Hx: Reviewed Nursing Past Med/Soc Hx Patient Social History Alcohol Use: Denies Use Recreational Drug Use: No Smoking Status: Former Smoker Type Used: Cigarettes, Pipe Former Smoker, Quit: Feb 14, 2011 2nd Hand Smoke Exposure: No Recent Foreign Travel: No Contact w/Someone Who Travel: No Recent Infectious Disease Expo: No Recent Hopitalizations: No Immunizations Up To Date Tetanus Booster (TDap): Less than 5yrs PED Vaccines UTD: No Date of Pneumonia Vaccine: June 10, 2012 Date of Influenza Vaccine: Nov 09, 2016 Seasonal Allergies Seasonal Allergies: No Past Medical History Surgeries: Yes (BOOP-LUNG SURGERY, CATARACTS, DETACHED RETINA; HERNIA REPAIR ) Abdominal, Cardiac, Coronary Stent, Eye Surgery, Tonsillectomy Respiratory: Yes COPD Currently Using CPAP: No Currently Using BIPAP: No Cardiac: Yes Coronary Artery Disease, Hypertension Neurological: Yes (DEMENTIA WITH BEHAVIOR DISTURBANCE) Dementia, Parkinson's Disease, Seizure Disorder, Stroke Reproductive Disorders: No Sexually Transmitted Disease: No HIV/AIDS: No Genitourinary: Yes (urinary retention) Prostate Problems Gastrointestinal: Yes Abdominal Hernia, Diverticulosis, C-Diff, Hiatal Hernia Musculoskeletal: Yes (GENERALIZED WEAKNESS AND FALLS) Arthritis Endocrine: No HEENT: Yes (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) Cataract, Eye Injury Loss of Vision: Bilateral Hearing Impairment: Hard of Hearing Cancer: No Did You Recieve Any Treatments: No Psychosocial: Yes Depression Integumentary: Yes Psoriasis Blood Disorders: No Adverse Reaction/Blood Tranf: No Family Medical History Reviewed Nursing Family Hx Cardiovascular disease 19 FATHER, Onset:Unknown Cataracts 19 MOTHER, Onset:Unknown FH: stomach cancer 19 MOTHER, Onset:Unknown Glaucoma 19 MOTHER, Onset:Unknown CAD Over 55 Years Old Physical Exam Vital Signs Vital Signs - First Documented 03/12/18 06:35 Temp 93.9 Pulse 124 Resp 29 B/P (MAP) 200/144 (162) Pulse Ox 97 O2 Delivery Non Rebreather O2 Flow Rate 15.00 Capillary Refill : Less Than 3 Seconds Height, Weight, BMI Height: 5'11.00" Weight: 220lbs. 0.0oz. 99.131832xp; 29.8 BMI Method:Stated General Appearance: WD/WN, no apparent distress HEENT: PERRL/EOMI, normal ENT inspection, pharynx normal, other (dry blood near the nostrils) Neck: non-tender, normal inspection Respiratory: no respiratory distress, no accessory muscle use, wheezing, other (increased expiratory effort) Cardiovascular: regular rate, rhythm, no edema, no murmur Gastrointestinal: normal bowel sounds, non tender, soft Extremities: non-tender, no pedal edema, other (lower extremities initially mottled for warming and fluid resuscitation) Neurologic/Psychiatric: alert (to voice), other (cognition significantly dulled. Patient answers a few questions with one or 2 words. He will not follow directions well. He does move all 4 extremities to stimulation. Left upper extremity appears weaker than right) Crainal Nerves: normal hearing, PERRL Skin: cool, mottled, pallor Stroke NIH Stroke Scale Assessment Select: Initial inaccurate NIH could not be obtained due to patient's inability to cooperate with instructions Total: Stroke Thrombolytic Exclusion Age 18 or Over: Yes Focused Exam Reason for ruling out sepsis: no source of infection was found Lactate Level 03/12/18 08:52: Lactic Acid Level 2.58*H 03/12/18 13:18: Lactic Acid Level 2.71*H Time of Focused Exam: 11:00 Respiratory: Lungs Clear, Normal Breath Sounds Cardiovascular: Regular Rate, Rhythm, No Edema, No Murmur, Normal Peripheral Pulses Capillary Refill: Less Than 3 Seconds Skin: normal color, warm/dry Lactic Acid Level Laboratory Tests Test 03/12/18 08:52 03/12/18 13:18 Lactic Acid Level 2.58 MMOL/L (0.50-2.00) *H 2.71 MMOL/L (0.50-2.00) *H Progress/Results/Core Measures Results/Orders Lab Results Laboratory Tests Test 03/12/18 06:40 03/12/18 06:55 03/12/18 08:15 03/12/18 08:52 Range/Units Glucometer 313 H 70-110 MG/DL White Blood Count 26.4 H 4.3-11.0 10^3/uL Red Blood Count 5.66 4.35-5.85 10^6/uL Hemoglobin 18.0 H 13.3-17.7 G/DL Hematocrit 53 40-54 % Mean Corpuscular Volume 93 80-99 FL Mean Corpuscular Hemoglobin 32 25-34 PG Mean Corpuscular Hemoglobin Concent 34 32-36 G/DL Red Cell Distribution Width 13.6 10.0-14.5 % Platelet Count 364 130-400 10^3/uL Mean Platelet Volume 9.7 7.4-10.4 FL Neutrophils (%) (Auto) 75 42-75 % Lymphocytes (%) (Auto) 16 12-44 % Monocytes (%) (Auto) 6 0-12 % Eosinophils (%) (Auto) 2 0-10 % Basophils (%) (Auto) 0 0-10 % Neutrophils # (Auto) 19.9 H 1.8-7.8 X 10^3 Lymphocytes # (Auto) 4.2 H 1.0-4.0 X 10^3 Monocytes # (Auto) 1.7 H 0.0-1.0 X 10^3 Eosinophils # (Auto) 0.6 H 0.0-0.3 10^3/uL Basophils # (Auto) 0.1 0.0-0.1 10^3/uL Neutrophils % (Manual) 73 % Lymphocytes % (Manual) 0 % Monocytes % (Manual) 1 % Eosinophils % (Manual) 3 % Basophils % (Manual) 0 % Band Neutrophils 4 % Reactive Lymphocytes 19 % Blood Morphology Comment NORMAL Sodium Level 137 135-145 MMOL/L Potassium Level 4.7 3.6-5.0 MMOL/L Chloride Level 103 98-107 MMOL/L Carbon Dioxide Level 13 L 21-32 MMOL/L Anion Gap 21 H 5-14 MMOL/L Blood Urea Nitrogen 11 7-18 MG/DL Creatinine 0.85 0.60-1.30 MG/DL Estimat Glomerular Filtration Rate > 60 BUN/Creatinine Ratio 13 Glucose Level 222 H 70-105 MG/DL Calcium Level 9.3 8.5-10.1 MG/DL Corrected Calcium 8.5-10.1 MG/DL Total Bilirubin 0.3 0.1-1.0 MG/DL Aspartate Amino Transf (AST/SGOT) 32 5-34 U/L Alanine Aminotransferase (ALT/SGPT) 19 0-55 U/L Alkaline Phosphatase 163 H 40-136 U/L Total Creatine Kinase 125 30-200 U/L Troponin I < 0.028 <0.028 NG/ML Total Protein 9.0 H 6.4-8.2 GM/DL Albumin 4.8 H 3.2-4.5 GM/DL Serum Alcohol < 10 <10 MG/DL Urine Color YELLOW Urine Clarity CLEAR Urine pH 6 5-9 Urine Specific [place] 1.015 L 1.016-1.022 Urine Protein 2+ H NEGATIVE Urine Glucose (UA) 1+ H NEGATIVE Urine Ketones NEGATIVE NEGATIVE Urine Nitrite NEGATIVE NEGATIVE Urine Bilirubin NEGATIVE NEGATIVE Urine Urobilinogen NORMAL NORMAL MG/DL Urine Leukocyte Esterase NEGATIVE NEGATIVE Urine RBC (Auto) 2+ H NEGATIVE Urine RBC 5-10 H /HPF Urine WBC NONE /HPF Urine Squamous Epithelial Cells NONE /HPF Urine Crystals NONE /LPF Urine Bacteria NEGATIVE /HPF Urine Casts NONE /LPF Urine Mucus NEGATIVE /LPF Urine Culture Indicated NO Urine Opiates Screen NEGATIVE NEGATIVE Urine Oxycodone Screen NEGATIVE NEGATIVE Urine Methadone Screen NEGATIVE NEGATIVE Urine Propoxyphene Screen NEGATIVE NEGATIVE Urine Barbiturates Screen POSITIVE H NEGATIVE Ur Tricyclic Antidepressants Screen NEGATIVE NEGATIVE Urine Phencyclidine Screen NEGATIVE NEGATIVE Urine Amphetamines Screen NEGATIVE NEGATIVE Urine Methamphetamines Screen NEGATIVE NEGATIVE Urine Benzodiazepines Screen NEGATIVE NEGATIVE Urine Cocaine Screen NEGATIVE NEGATIVE Urine Cannabinoids Screen NEGATIVE NEGATIVE Prothrombin Time 14.6 12.2-14.7 SEC INR Comment 1.1 0.8-1.4 Activated Partial Thromboplast Time 29 24-35 SEC D-Dimer 11.92 H 0.00-0.49 UG/ML Lactic Acid Level 2.58 *H 0.50-2.00 MMOL/L Test 03/12/18 13:18 03/12/18 14:30 Range/Units Lactic Acid Level 2.71 *H 0.50-2.00 MMOL/L CSF Tube Number 4 CSF Appearance SLT BLDY CSF Color RED CSF WBC 1 0-5 CELLS CSF RBC 5500 H 0-0 CELLS CSF Lymphocytes % CSF Mononuclear WBCs % CSF Polynuclear WBCs % CSF Glucose 102 H 50-80 MG/DL CSF Total Protein 134 H 15-40 MG/DL Micro Results Microbiology 03/12/18 Gram Stain - Final, Resulted 03/12/18 CSF Culture, Resulted Pending My Orders Orders - JOEL DU MD Cbc With Automated Diff (03/12/18 06:41) Protime With Inr (03/12/18 06:41) Partial Thromboplastin Time (03/12/18 06:41) Comprehensive Metabolic Panel (03/12/18 06:41) Fibrin Degradation Products (03/12/18 06:41) Troponin I (03/12/18 06:41) Ua Culture If Indicated (03/12/18 06:41) Chest 1 View, Ap/Pa Only (03/12/18 06:41) Catheter(Urinary) Insert & Ass 03,15 (03/12/18 06:41) Ekg Tracing (03/12/18 06:41) Nothing By Mouth (03/12/18 Lunch) Accucheck Stat ONCE (03/12/18 06:41) Saline Lock/Iv-Start (03/12/18 06:41) Saline Lock/Iv-Start (03/12/18 06:41) Vital Signs Stroke Patient Q15M (03/12/18 06:41) Ct Head Wo-R/O Stroke (03/12/18 06:41) O2 (03/12/18 06:41) Intake & Output 06,14,22 (03/12/18 06:41) Monitor-Rhythm Ecg Trace Only (03/12/18 06:41) Dysphagia Screening Tool (03/12/18 06:41) Post Thrombolytic Adminstratio (03/12/18 06:41) Albuterol/Ipra Inhalation Soln (Duoneb I (03/12/18 06:45) Svn Small Volume Nebulizer (03/12/18 06:41) Alcohol (03/12/18 06:41) Creatine Kinase (03/12/18 06:41) Drug Screen Stat (Urine) (03/12/18 06:41) Ct Cervical Spine Wo (03/12/18 06:42) Albuterol/Ipra Inhalation Soln (Duoneb I (03/12/18 06:38) Levetiracetam Injection (Keppra Injectio (03/12/18 09:00) Dilantin (Phenytoin) (03/12/18 06:44) Lidocaine Pf 1% 5 Ml Injection (Xylocain (03/12/18 06:55) Lidocaine 2% Bolus Syringe (Xylocaine Chris (03/12/18 06:55) Ct Thoracic/Lumbar Spine Wo (03/12/18 07:09) Blood Culture (03/12/18 07:09) Lactic Acid Analyzer (03/12/18 07:09) Manual Differential (03/12/18 06:55) Ns Iv 1000 Ml (Sodium Chloride 0.9%) (03/12/18 07:18) Piperacillin Sodium/Tazobactam (Zosyn Vi (03/12/18 07:30) Ct Angio Head/Neck (03/12/18 08:36) Phenytoin Injection (Dilantin Injection) (03/12/18 08:45) Chest 1 View, Ap/Pa Only (03/12/18 09:03) Ct Head Perfusion W/ Contrast (03/12/18 09:26) Iohexol Injection (Omnipaque 350 Mg/Ml 1 (03/12/18 10:30) Contrast Received (Contrast Received) (03/12/18 10:30) Ns (Ivpb) (Sodium Chloride 0.9% Ivpb Bag (03/12/18 10:30) Ns Iv 1000 Ml (Sodium Chloride 0.9%) (03/12/18 11:00) Lorazepam Injection (Ativan Injection) (03/12/18 13:12) Csf Cell Count (03/12/18 13:22) Csf Glucose (03/12/18 13:22) Csf Total Protein (03/12/18 13:22) Csf Culture (03/12/18 13:22) Lidocaine 1% Inj 20 Ml (Xylocaine 1% Inj (03/12/18 13:24) Ceftriaxone For Iv Use (Rocephin For I (03/12/18 14:15) Vancomycin Injection (Vancomycin Injecti (03/12/18 14:15) Medications Given in ED Current Medications Medications Dose Ordered Sig/Destiny Route Start Time Stop Time Status Last Admin Dose Admin Albuterol/ Ipratropium 3 ml STK-MED ONCE .ROUTE 03/12/18 06:38 03/12/18 06:43 DC 03/12/18 07:13 3 ML Iohexol 150 ml ONCE ONCE IV 03/12/18 10:30 03/12/18 10:31 DC 03/12/18 10:30 150 ML Levetiracetam 500 mg/Sodium Chloride 105 ml @ 210 mls/hr BID ONCE IV 03/12/18 09:00 03/12/18 09:29 DC 03/12/18 07:10 210 MLS/HR Lidocaine HCl 100 mg STK-MED ONCE .ROUTE 03/12/18 06:55 03/12/18 07:00 DC 03/12/18 07:10 100 MG Phenytoin Sodium 100 mg ONCE ONCE IV 03/12/18 08:45 03/12/18 08:46 DC 03/12/18 10:26 100 MG Piperacillin Sod/ Tazobactam Sod 4.5 gm/Sodium Chloride 100 ml @ 200 mls/hr ONCE ONCE IV 03/12/18 07:30 03/12/18 07:59 DC 03/12/18 10:26 200 MLS/HR Sodium Chloride 100 ml ONCE ONCE IV 03/12/18 10:30 03/12/18 10:31 DC 03/12/18 10:30 150 ML Sodium Chloride 1,000 ml @ 150 mls/hr Q6H40M ONCE IV 03/12/18 11:00 03/12/18 15:14 DC 03/12/18 12:09 150 MLS/HR Sodium Chloride 1,000 ml @ ud STK-MED ONCE .ROUTE 03/12/18 07:18 03/12/18 07:22 DC 03/12/18 07:10 999 MLS/HR Vital Signs/I&O 03/12/18 03/12/18 03/12/18 06:35 06:35 07:14 Temp 93.9 Pulse 124 Resp 29 B/P (MAP) 200/144 (162) Pulse Ox 97 95 O2 Delivery Non Rebreather Non Rebreather Non Rebreather O2 Flow Rate 15.00 15.00 15.00 Blood Pressure Mean: 162 FSBG Bedside Testing Finger Stick Blood Glucose: 313 Blood Glucose Action Taken: erp notified Progress Progress Note #1: Time: 08:48 Progress Note Stroke activation was paged during initial assessment. Patient's hypothermia was treated with warm fluids and a bear hugger blanket. CT of the head showed no acute bleed. Patient was given Keppra 5 her milligrams IV as he has not yet had his morning medications. A dose of Dilantin will also be given. Patient had a white count of 26,000. A DuoNeb was administered which improved the increased expiratory effort. Patient has a right tibial IO area and IV access has not yet been established. Dr. Ham is presently placing a central line. I discussed the case with Dr. Samuel, stroke neurologist at [facility], at 08:30. He believes there is some benefit to CT angiogram and CT perfusion scan. Patient's level of alertness has improved but he is only mumbling. He is not speaking comprehensively. He also will not move his lower extremities on command. Sepsis has also been suspected. Zosyn has been ordered and will be initiated after central line placement. Progress Note #2: Time: 14:15 Progress Note Patient's mentation gradually improved throughout his ER stay. However, he eventually had another seizure lasted 1-2 minutes. He received Ativan 1.5 mg at the conclusion of the seizure. He was again significant only post ictal with gradual improvement after that seizure. There was ongoing discussion with Dr. Samuel at [facility]. Patient had been initially given Zosyn for empiric antibiotic therapy due to the leukocytosis. Dr. Samuel recommended a lumbar puncture. This was performed by anesthesia. Opening pressures were less than 10 mmHg. The CSF was unremarkable for signs of infection. Prior to CSF results , Rocephin and vancomycin were ordered as further empiric therapy. IV fluids were continued. Transfer to a tertiary care center with comprehensive stroke care was felt the most appropriate in this case due to patient's complex presentation and lack of return to baseline in regard to his neurologic status. Due to his history and complexity of his care, he was transferred to [facility] under the except and so Dr. Samuel. CT perfusion scan showed no evidence of ischemic stroke or penumbra. However, there were some significant flow deficits in the vertebral and carotid arteries. See reports for details. Progress Note #3: Progress Note Patient was ultimately transferred via [facility] in stable condition. Initial ECG Impression Date: Mar 12, 2018 Initial ECG Impression Time: 07:48 Initial ECG Rate: 114 Initial ECG Rhythm: S.Tach Comment Sinus tachycardia with no ST elevation or depression. Significant artifact on the study. Diagnostic Imaging Diagonstic Imaging: CT Plain Films/CT/US/NM/MRI: head Comments CT head viewed by me and report reviewed. See report below: NAME: MIKEL SELF [facility] REC#: [id number] PT STATUS: REG ER : 1940 PHYSICIAN: JOEL DU MD ADMIT DATE: 03/12/18/ER Draft Date of Exam:03/12/18 CT HEAD WO-R/O STROKE PROCEDURE: CT head wo r/o stroke. TECHNIQUE: Multiple contiguous axial images were obtained through the brain without the use of intravenous contrast. INDICATION: Found down in driveway. Hypothermia. Seizure. CORRELATION STUDY: 12/15/2017 FINDINGS: Atrophic changes with prominence of the ventricles and sulci again demonstrated. Scattered areas of decreased attenuation while nonspecific favor changes of small vessel ischemic disease. Old right posterior cerebral artery territory infarct is again noted with encephalomalacia involving the large portion of the right occipital lobe. Definitive new area of decreased attenuation does not appear to be suggested. No midline shift or mass effect. No intracranial hemorrhage. Prior surgical changes of the left globe. There is moderate mucosal thickening of the right maxillary sinus. IMPRESSION: 1. Generally stable appearing noncontrast CT imaging of the head. No acute intracranial abnormality is suggested. 2. Generalized atrophic changes with likely changes of small vessel ischemic disease. Findings compatible with previous right IRONER HAND regional area of infarct. Dictated on workstation # [id number] Dict: 03/12/18725 Trans: 03/12/18 0739 SOCRATES [id number] Interpreted by: RUTH ANN SANTIAGO DO Diagonstic Imaging: CT Plain Films/CT/US/NM/MRI: c-spine Comments CT cervical spine viewed by me and report reviewed. See report below: NAME: MIKEL SELF [facility] REC#: [id number] PT STATUS: REG ER : 1940 PHYSICIAN: JOEL DU MD ADMIT DATE: 03/12/18/ER Draft Date of Exam:03/12/18 CT CERVICAL SPINE WO PROCEDURE: CT cervical spine without contrast. TECHNIQUE: Multiple contiguous axial images were obtained through the cervical spine without the use of intravenous contrast. Sagittal and coronal reformations were then performed. INDICATION: Found down in driveway, hypothermia. Seizures. CORRELATION STUDY: CTA head and neck 12/15/2017 FINDINGS: The patient appears to be slightly asymmetrically positioned at time of imaging. Given this, the cervical spinal alignment relatively anatomic. The cervical vertebral body heights demonstrate minimal anterior wedging particularly at the C3, C4 and C5 levels. An acute-appearing compression fracture does not appear to be present. The posterior elements demonstrate various degrees of hypertrophic facet arthropathy. There is bony fusion across the facet joints asymmetrically on the left at C2 and C3 level. Odontoid intact. Lateral masses C1 and C2 aligned. Multilevel disc space narrowing. Reactive endplate osteophyte formations noted at multiple levels. No high-degrees osseous narrowing of neuroforamina and/or spinal canal. Lung apices appear unremarkable. Paraspinal soft tissues unremarkable. IMPRESSION: 1. Negative for acute fracture or traumatic subluxation of the cervical spine. 2. Advanced multilevel cervical spondylosis is present. Dictated on workstation # [id number] Dict: 03/12/18 0741 Trans: 03/12/18 0811 CV [id number] Interpreted by: RUTH ANN SANTIAGO DO Diagonstic Imaging: Xray Plain Films/CT/US/NM/MRI: chest Comments NAME: MIKEL SELF MED REC#: [id number] PT STATUS: REG ER : 1940 PHYSICIAN: JOEL DU MD ADMIT DATE: 03/12/18/ER Signed Date of Exam: 03/12/18 CHEST 1 VIEW, AP/PA ONLY INDICATION: Found down in driveway, hypothermia.. TECHNIQUE: Single view chest 7:30 AM. CORRELATION STUDY: 01/20/2018 FINDINGS: Limited depth of inspiration. Heart size is enlarged. Mediastinum is prominent and widened. This appears likely relatively stable given difference of technique from prior imaging. Vascular overall within normal limits. Lung morelos with chronic type changes. No definitive infiltrate. IMPRESSION: 1. Cardiac enlargement likely relatively stable given difference in technique. No evidence for overt failure. 2. Abnormally widened, prominent mediastinum. This appears likely relatively stable. Dictated by: Dictated on workstation # [id number] Dict: 03/12/18 0739 Trans: 03/12/18 1158 Interpreted by: RUTH ANN SANTIAGO DO Electronically signed by: RUTH ANN SANTIAGO DO 03/12/18 1158 Diagonstic Imaging: CT Plain Films/CT/US/NM/MRI: other (spine) Comments NAME: MIKEL SELF [facility] REC#: [id number] PT STATUS: REG ER : 1940 PHYSICIAN: JOEL DU MD ADMIT DATE: 03/12/18/ER Signed Date of Exam: 03/12/18 CT THORACIC/LUMBAR SPINE WO INDICATION: Patient found down, possible seizures. CT of the thoracic and lumbar spine obtained with axial slices without contrast and sagittal and coronal reconstructions. There is diffuse degenerative change throughout the thoracolumbar spine with disc space narrowing and osteophyte formation at essentially all levels. There is no acute fracture or acute bony abnormality seen. There is no paraspinal hematoma or mass. There is no overt bony canal narrowing. IMPRESSION: Multilevel degenerative changes throughout the thoracolumbar spine with no acute bony abnormality seen. Dictated by: Dictated on workstation # [id number] Dict: 03/12/18 0815 Trans: 03/12/18 1107 Interpreted by: JAMEL CHO MD Electronically signed by: JAMEL CHO MD 03/12/18 1107 Diagonstic Imaging: CT Plain Films/CT/US/NM/MRI: other (angiogram head and neck) Comments NAME: MIKEL SELF MED REC#: [id number] PT STATUS: REG ER : 1940 PHYSICIAN: JOEL DU MD ADMIT DATE: 03/12/18/ER Signed Date of Exam: 03/12/18 CT ANGIO HEAD/NECK PROCEDURE: CT angiography of the head and CT angiography of the neck with and without contrast. TECHNIQUE: Contiguous noncontrast images were obtained from the skull base through the vertex. After intravenous contrast administration, helical CT angiography of the neck was performed. Source data was reformatted into multiple MIP projections. Delayed post contrast acquisition was also obtained. INDICATION: Found down in driveway, hypothermic, seizures. FINDINGS: There is good opacification of the level of the aorta's arch and common carotid arteries. The more distal that level systemic intraluminal arterial opacification is gradually diminished with poor opacification of the distal internal carotids and intracranial vessels. Branching pattern of the great vessels was unremarkable. The right vertebral is dominant, left is of relatively small caliber on a congenital basis however shows multifocal areas of stenoses including at the C3-C4 disc space level, at the C2 inferior vertebral body level and at the C6-C7 disc space level. No focal stenosis in the right vertebral. The bilateral common carotid arteries were patent. There is a mixed soft and hard plaque at the left carotid bifurcation extending into the proximal left ICA with its lumen stenosed by about 70%. Right side showed more mild diffuse plaque without hemodynamically significant stenosis. At the level of the skull base the carotid arterial opacification is poor. CT angio head: There is calcified eccentric plaque involving the cavernous segments of the intracranial ICAs. Given the suboptimal luminal opacification, no convincing evidence for significant stenosis. There is at least some opacification of the anterior cerebral arteries bilaterally. The M1 and M2 middle cerebral arterial segments were grossly unremarkable more distally, branch opacification is poor. No identifiable intraluminal thrombus or large vessel occlusion. There is severe stenosis of the left distal intrathecal vertebral artery/V4 segment where I cannot confirm any intraluminal flow. Beyond that level, there is a small caliber vessel with some luminal enhancement. The intrathecal right vertebral is dominant and unremarkable. The basilar appeared nonfocal. The bilateral P1 segments are opacified. Beyond the P1 segments, luminal opacification is very poor and the distal IRONER HAND segments of patency cannot be addressed. We again note an old infarct in the left parietal-occipital cortex in a IRONER HAND distribution. There is atrophy, white matter disease and chronic small vessel sequelae. There is prior left orbital scleral banding, membrane thickening and trace fluid within the right maxillary sinus. IMPRESSION: 1. Limited by bolus timing and suboptimal arterial opacification, reveals multifocal stenoses of the cervical vertebral artery on the left as well as severe left vertebral intrathecal stenoses and/or segmental occlusion. 2. A hemodynamically significant stenosis, left carotid bifurcation and proximal ICA owing to the basis of soft and hard plaque narrowed by about 70% diameter. Right side showed no substantial stenosis. CT angiogram head: Central intracranial arterial vessels were patent but the distal branch opacification is poor. No visualized large vessel occlusion, aneurysm or vascular malformation. Old ischemic infarct and chronic senescent changes with right maxillary sinus disease. Dictated by: Dictated on workstation # [id number] Dict: 03/12/18 1012 Trans: 03/12/181407 Interpreted by: LORELEI HENAO Electronically signed by: LORELEI HENAO 03/12/181407 Diagonstic Imaging: Xray Plain Films/CT/US/NM/MRI: chest Comments NAME: MIKEL SELF [employer] REC#: [id number] PT STATUS: REG ER : 1940 PHYSICIAN: JOEL DU MD ADMIT DATE: 03/12/18/ER Signed Date of Exam: 03/12/18 CHEST 1 VIEW, AP/PA ONLY INDICATION: Central line FINDINGS: Catheter via the right neck has its tip inferiorly oriented in the mid to lower SVC in good position. There is no pneumothorax. Chronic chest wall calcifications on the left incidental, cardiomegaly unchanged. There is some mild prominence of interstitial lung markings suggestive of mild interstitial edema. There may be a tiny amount of left pleural fluid. IMPRESSION: Central line placed. Cardiomegaly. Likely mild interstitial edema and a tiny left effusion. No pneumothorax. Dictated by: Dictated on workstation # [id number] Dict: 03/12/18 09 Trans: 03/12/181407 Interpreted by: OLRELEI HENAO Electronically signed by: LORELEI HENAO 03/12/181407 Diagonstic Imaging: CT Plain Films/CT/US/NM/MRI: head (CT perfusion scan) Comments NAME: MIKEL SELF [employer] REC#: [id number] PT STATUS: REG ER : 1940 PHYSICIAN: JOEL DU MD ADMIT DATE: 03/12/18/ER Signed Date of Exam: 02/01/19 CT HEAD PERFUSION W/ CONTRAST INDICATION: Patient found down, stroke symptoms. TECHNIQUE: The CT perfusion study was performed with sequential imaging of the brain with IV contrast bolus followed by reconstructed images via the Rapid protocol. COMPARISON: Correlation is made to the noncontrast CT and CTA studies. FINDINGS: There is diminished cerebral blood volume and blood flow in the area of the large old infarct in the right posterior temporal and occipital region noted on the noncontrast study. There are no other focal areas of asymmetry. Given the threshold of cerebral blood volume of 30%, there is no acute ischemic core. Using the T-MAX threshold of greater than 6 seconds, there is no ischemic penumbra. IMPRESSION: Old infarct noted in the right posterior temporal and occipital region. No evidence of acute ischemic core or ischemic penumbra. Dictated by: Dictated on workstation # [id number] Dict: 03/12/18 1010 Trans: 03/12/18 1107 Interpreted by: JAMEL CHO MD Electronically signed by: JAMEL CHO MD 03/12/18 1107 Departure Impression Primary Impression: Altered mental status Qualified Codes: R41.82 - Altered mental status, unspecified Additional Impressions: Seizure disorder Carotid stenosis Qualified Codes: I65.22 - Occlusion and stenosis of left carotid artery Leukocytosis Qualified Codes: D72.829 - Elevated white blood cell count, unspecified Accidental hypothermia Qualified Codes: T68.XXXA - Hypothermia, initial encounter Hyperglycemia Disposition: XFER SHT-TRM HOSP Condition: Stable Transfer Time Spoke to Accepting Phy: 08:05 Transfer Time: 14:49 Transfer Facility: [facility] to Dr. Samuel by [facility] Method of Transfer: Air Departure-Patient Inst. Referrals: BRYANT WAGNER MD (PCP/Family) Primary Care Physician JOEL DU MD Mar 12, 2018 07:37
--- NOTE | 2018-03-12 07:40 | Diagnostic Imaging Report ---
PROCEDURE: CT head wo r/o stroke. TECHNIQUE: Multiple contiguous axial images were obtained through the brain without the use of intravenous contrast. INDICATION: Found down in driveway. Hypothermia. Seizure. CORRELATION STUDY: 12/15/2017 FINDINGS: Atrophic changes with prominence of the ventricles and sulci again demonstrated. Scattered areas of decreased attenuation while nonspecific favor changes of small vessel ischemic disease. Old right posterior cerebral artery territory infarct is again noted with encephalomalacia involving the large portion of the right occipital lobe. Definitive new area of decreased attenuation does not appear to be suggested. No midline shift or mass effect. No intracranial hemorrhage. Prior surgical changes of the left globe. There is moderate mucosal thickening of the right maxillary sinus. IMPRESSION: 1. Generally stable appearing noncontrast CT imaging of the head. No acute intracranial abnormality is suggested. 2. Generalized atrophic changes with likely changes of small vessel ischemic disease. 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 Dictated by: Dictated on workstation # [id number]
--- NOTE | 2018-03-12 07:43 | Diagnostic Imaging Report ---
INDICATION: Found down in driveway, hypothermia.. TECHNIQUE: Single view chest 7:30 AM. CORRELATION STUDY: 01/20/2018 FINDINGS: Limited depth of inspiration. Heart size is enlarged. Mediastinum is prominent and widened. This appears likely relatively stable given difference of technique from prior imaging. Vascular overall within normal limits. Lung morelos with chronic type changes. No definitive infiltrate. IMPRESSION: 1. Cardiac enlargement likely relatively stable given difference in technique. No evidence for overt failure. 2. Abnormally widened, prominent mediastinum. This appears likely relatively stable. Dictated by: Dictated on workstation # [id number]
[2018-03-12 07:53] LABS: BAND NEUTROPHILS 4 %; BASOPHILS % (MANUAL) 0 %; EOSINOPHILS % (MANUAL) 3 %; LYMPHOCYTES % (MANUAL) 0 %; MONOCYTES % (MANUAL) 1 %; NEUTROPHILS % (MANUAL) 73 %
[2018-03-12 07:54] LABS: RBC MORPH NORMAL; REACTIVE LYMPHOCYTES 19 %
--- NOTE | 2018-03-12 08:12 | Diagnostic Imaging Report ---
PROCEDURE: CT cervical spine without contrast. TECHNIQUE: Multiple contiguous axial images were obtained through the cervical spine without the use of intravenous contrast. Sagittal and coronal reformations were then performed. INDICATION: Found down in driveway, hypothermia. Seizures. CORRELATION STUDY: CTA head and neck 12/15/2017 FINDINGS: The patient appears to be slightly asymmetrically positioned at time of imaging. Given this, the cervical spinal alignment relatively anatomic. The cervical vertebral body heights demonstrate minimal anterior wedging particularly at the C3, C4 and C5 levels. An acute-appearing compression fracture does not appear to be present. The posterior elements demonstrate various degrees of hypertrophic facet arthropathy. There is bony fusion across the facet joints asymmetrically on the left at C2 and C3 level. Odontoid intact. Lateral masses C1 and C2 aligned. Multilevel disc space narrowing. Reactive endplate osteophyte formations noted at multiple levels. No high-degrees osseous narrowing of neuroforamina and/or spinal canal. Lung apices appear unremarkable. Paraspinal soft tissues unremarkable. IMPRESSION: 1. Negative for acute fracture or traumatic subluxation of the cervical spine. 2. Advanced multilevel cervical spondylosis is present. Dictated by: Dictated on workstation # [id number]
[2018-03-12 08:19] LABS: BILIRUBIN,URINE NEGATIVE (NEGATIVE); CLARITY,URINE CLEAR; COLOR,URINE YELLOW; GLUCOSE, URINE (UA) 1+ (NEGATIVE); KETONES,URINE NEGATIVE (NEGATIVE); LEUKOCYTE ESTERASE ,URINE NEGATIVE (NEGATIVE); NITRITE,URINE NEGATIVE (NEGATIVE); PH,URINE 6 (5-9); PROTEIN,URINE 2+ (NEGATIVE); UROBILINOGEN,URINE NORMAL (NORMAL)
--- NOTE | 2018-03-12 08:28 | Diagnostic Imaging Report ---
INDICATION: Patient found down, possible seizures. CT of the thoracic and lumbar spine obtained with axial slices without contrast and sagittal and coronal reconstructions. There is diffuse degenerative change throughout the thoracolumbar spine with disc space narrowing and osteophyte formation at essentially all levels. There is no acute fracture or acute bony abnormality seen. There is no paraspinal hematoma or mass. There is no overt bony canal narrowing. IMPRESSION: Multilevel degenerative changes throughout the thoracolumbar spine with no acute bony abnormality seen. Dictated by: Dictated on workstation # [id number]
[2018-03-12 08:32] LABS: BACTERIA,URINE NEGATIVE /HPF
[2018-03-12] MEDS ORDERED: PHENYTOIN 100 MG/2 ML IV ONE (08:45)
[2018-03-12 08:50] LABS: AMPHETAMINE SCREEN, URINE NEGATIVE (NEGATIVE); BARBITURATE SCREEN URINE POSITIVE (NEGATIVE); BENZODIAZEPINES SCREEN URINE NEGATIVE (NEGATIVE); CANNABINOID SCREEN, URINE NEGATIVE (NEGATIVE); COCAINE SCREEN URINE NEGATIVE (NEGATIVE); METHADONE STAT NEGATIVE (NEGATIVE); METHAMPHETAMINE SCREEN URINE S NEGATIVE (NEGATIVE); OPIATE SCREEN URINE NEGATIVE (NEGATIVE); OXYCODONE STAT NEGATIVE (NEGATIVE); PROPOXYPHENE STAT NEGATIVE (NEGATIVE); TRICYCLIC ANTIDEPRESSANTS SCRE NEGATIVE (NEGATIVE)
[2018-03-12] MEDS ORDERED: LEVETIRACETAM INJECTION 500 MG in NS (IVPB) 100 ML IV ONE (09:00)
[2018-03-12 09:26] LABS: FIBRIN DEGRADATION PRODUCTS 11.92 UG/ML (0.00-0.49); INR 1.1 (0.8-1.4); PROTHROMBIN TIME PATIENT 14.6 SEC (12.2-14.7)
--- NOTE | 2018-03-12 09:56 | Diagnostic Imaging Report ---
INDICATION: Central line FINDINGS: Catheter via the right neck has its tip inferiorly oriented in the mid to lower SVC in good position. There is no pneumothorax. Chronic chest wall calcifications on the left incidental, cardiomegaly unchanged. There is some mild prominence of interstitial lung markings suggestive of mild interstitial edema. There may be a tiny amount of left pleural fluid. IMPRESSION: Central line placed. Cardiomegaly. Likely mild interstitial edema and a tiny left effusion. No pneumothorax. Dictated by: Dictated on workstation # [id number]
[2018-03-12] MEDS ORDERED: IOHEXOL 350 MG/ML 150 ML (OMNIPAQUE 350) VIAL IV ONE (10:30)
[2018-03-12] MEDS ORDERED: NS 100 ML (IVPB) BAG IV ONE (10:30)
[2018-03-12] MEDS ORDERED: RECEIVED CONTRAST (Hold Metformin) IV SCH (10:30)
--- NOTE | 2018-03-12 10:38 | Diagnostic Imaging Report ---
PROCEDURE: CT angiography of the head and CT angiography of the neck with and without contrast. TECHNIQUE: Contiguous noncontrast images were obtained from the skull base through the vertex. After intravenous contrast administration, helical CT angiography of the neck was performed. Source data was reformatted into multiple MIP projections. Delayed post contrast acquisition was also obtained. INDICATION: Found down in driveway, hypothermic, seizures. FINDINGS: There is good opacification of the level of the aorta's arch and common carotid arteries. The more distal that level systemic intraluminal arterial opacification is gradually diminished with poor opacification of the distal internal carotids and intracranial vessels. Branching pattern of the great vessels was unremarkable. The right vertebral is dominant, left is of relatively small caliber on a congenital basis however shows multifocal areas of stenoses including at the C3-C4 disc space level, at the C2 inferior vertebral body level and at the C6-C7 disc space level. No focal stenosis in the right vertebral. The bilateral common carotid arteries were patent. There is a mixed soft and hard plaque at the left carotid bifurcation extending into the proximal left ICA with its lumen stenosed by about 70%. Right side showed more mild diffuse plaque without hemodynamically significant stenosis. At the level of the skull base the carotid arterial opacification is poor. CT angio head: There is calcified eccentric plaque involving the cavernous segments of the intracranial ICAs. Given the suboptimal luminal opacification, no convincing evidence for significant stenosis. There is at least some opacification of the anterior cerebral arteries bilaterally. The M1 and M2 middle cerebral arterial segments were grossly unremarkable more distally, branch opacification is poor. No identifiable intraluminal thrombus or large vessel occlusion. There is severe stenosis of the left distal intrathecal vertebral artery/V4 segment where I cannot confirm any intraluminal flow. Beyond that level, there is a small caliber vessel with some luminal enhancement. The intrathecal right vertebral is dominant and unremarkable. The basilar appeared nonfocal. The bilateral P1 segments are opacified. Beyond the P1 segments, luminal opacification is very poor and the distal MOP HANDLE ASSEMBLER segments of patency cannot be addressed. We again note an old infarct in the left parietal-occipital cortex in a MOP HANDLE ASSEMBLER distribution. There is atrophy, white matter disease and chronic small vessel sequelae. There is prior left orbital scleral banding, membrane thickening and trace fluid within the right maxillary sinus. IMPRESSION: 1. Limited by bolus timing and suboptimal arterial opacification, reveals multifocal stenoses of the cervical vertebral artery on the left as well as severe left vertebral intrathecal stenoses and/or segmental occlusion. 2. A hemodynamically significant stenosis, left carotid bifurcation and proximal ICA owing to the basis of soft and hard plaque narrowed by about 70% diameter. Right side showed no substantial stenosis. CT angiogram head: Central intracranial arterial vessels were patent but the distal branch opacification is poor. No visualized large vessel occlusion, aneurysm or vascular malformation. Old ischemic infarct and chronic senescent changes with right maxillary sinus disease. Dictated by: Dictated on workstation # [id number]
--- NOTE | 2018-03-12 10:44 | Diagnostic Imaging Report ---
INDICATION: Patient found down, stroke symptoms. TECHNIQUE: The CT perfusion study was performed with sequential imaging of the brain with IV contrast bolus followed by reconstructed images via the Rapid protocol. COMPARISON: Correlation is made to the noncontrast CT and CTA studies. FINDINGS: There is diminished cerebral blood volume and blood flow in the area of the large old infarct in the right posterior temporal and occipital region noted on the noncontrast study. There are no other focal areas of asymmetry. Given the threshold of cerebral blood volume of 30%, there is no acute ischemic core. Using the T-MAX threshold of greater than 6 seconds, there is no ischemic penumbra. IMPRESSION: Old infarct noted in the right posterior temporal and occipital region. No evidence of acute ischemic core or ischemic penumbra. Dictated by: Dictated on workstation # [id number]
[2018-03-12] MEDS ORDERED: NS IV 1000 ML 1,000 ML IV ONE (11:00)
--- NOTE | 2018-03-12 11:00 | NUR ---
EMPTIED 1600ML OF URINE FROM [facility].
[2018-03-12] MEDS ORDERED: LORazepam INJ 2 MG/ML (ATIVAN) VIAL ONE (13:12)
--- NOTE | 2018-03-12 13:20 | NUR ---
PT HAD A SEIZURE THAT LASTED APPROXIMATELY 1 MINUTE. PT GIVEN 1.5MG OF ATIVAN.
[2018-03-12] MEDS ORDERED: LIDOCAINE 1% INJ 20 ML 20 ML VIAL ONE (13:24)
[2018-03-12] MEDS ORDERED: cefTRIAXone FOR IV USE 2,000 MG in NS (IVPB) 50 ML IV ONE (14:15)
[2018-03-12] MEDS ORDERED: VANCOMYCIN INJECTION 1,000 MG in NS (IVPB) 250 ML IV ONE (14:15)
[2018-03-12 14:49] VITALS: BP 149/113
--- NOTE | 2018-03-12 15:09 | Anesthesia-Procedure Note ---
Procedures/Interventions Procedure Start/Stop/Diagnosis Date of Procedure: Mar 12, 2018 Start Time: 13:15 Referring Physician: Ro Stop Time: 14:35 Lumbar Puncture Discussed Risk,Benefits: Yes (By ED Physician) Patient Consents: Yes (By ED Physician) Position: Lying, Left Sterile Technique: Yes Opening Pressure: 9.5 Fluid Color: red tinged Spinal Needle Used: 20g Quinke 3 1/2inch Procedure Notes Called to ED for Lumbar Puncture. Brief review of patient history obtained in chart and from physician. Medications reviewed in room. Patient not responsive. VSS. at bedside. Asked is she wished to stay or step out for the procedure, she chose to step out to the waiting room. Patient assisted to Left lying position with assistance from 2 ed RN's and myself. Unable to get patient in a good curled position which is best for procedure. Back Prepped and draped in sterile fashion with Iodine x 3 and fenestrated drape placed. Multiple attempts with both 22g pencil point and 20g cutting needle at multiple level and both midline and paramedian approaches. Multiple hem returns. Ultrasound used to confirm midline of vertebral processes. Obtained CSF at L5/S1. Blood returned after pop of what was assumed to be Dura, blood returned for approx 15 seconds then cleared to what appeared to be blood tinged CSF. 4 containers of assumed CSF collected at 1426, 1427, 1428, and 1430. Needle removed. Back cleaned, antibiotic ointment placed with 4x[address] on back. Assisted RN's to put patient supine. Care to ER staff. BOB BURNS CRNA Mar 12, 2018 15:09
[2018-03-12 15:14] LABS: APPEARANCE,CSF SLT BLDY; COLOR,CSF RED; RED BLOOD CELL,CSF 5500 CELLS (0-0); WHITE BLOOD CELL,CSF 1 CELLS (0-5)
[2018-03-12 15:15] LABS: CSF TUBE NUMBER 4
[2018-03-12 15:17] LABS: CSF GLUCOSE 102 MG/DL (50-80); CSF TOTAL PROTEIN 134 MG/DL (15-40)
[2018-03-12] MEDS ORDERED: LORazepam INJ 2 MG/ML (ATIVAN) VIAL IVP PRN (16:15)
--- NOTE | 2018-03-13 10:16 | Consultation ---
History of Present Illness History of Present Illness Patient Consulted On(bruno/time) 03/12/18 08:10 Date Seen by Provider: Mar 12, 2018 Time Seen by Provider: 08:10 History of Present Illness Consult requested by Dr. Starr for patient found down and need central line placement. Seen and evaluated in ED. Patient is a 77 year old male who was found down by mailman this morning. Patient was brought by EMS and had seizure in route to emergency department. Patient has confusion. Has History of stroke. Found to be hypothermic and receiving warm IV fluids and bear hugger. Patient unable to give any information. Had ct head and neck done without any new acute traumatic brain injury. there is multi level cervical spondylosis, no traumatic injury to neck. Patient needing IV access, has I/o. Allergies and Home Medications Allergies Coded Allergies: No Known Drug Allergies (Unverified , 09/01/16) Home Medications Levetiracetam 500 Mg Tablet, 500 MG PO BID, (Reported) Losartan Potassium 100 Mg Tablet, 100 MG PO DAILY, (Reported) Phenytoin Sodium Extended 100 Mg Capsule, 200 MG PO BID, (Reported) TAKES 2 (100 MG) CAPSULES Potassium Chloride 20 Meq Tablet.er, 20 MEQ PO DAILY, (Reported) Propranolol HCl 40 Mg Tablet, 40 MG PO BID, (Reported) Quetiapine Fumarate 100 Mg Tablet, 100 MG PO HS, (Reported) Sertraline HCl 100 Mg Tablet, 100 MG PO DAILY, (Reported) Tamsulosin HCl 0.4 Mg Cap.er.24h, 0.4 MG PO DAILY, (Reported) Patient Home Medication List Home Medication List Reviewed: Yes Past Rjcmurx-Njxrvg-Lkwujc Hx Patient Social History Alcohol Use: Denies Use Recreational Drug Use: No Smoking Status: Former Smoker Former Smoker, Quit: Feb 14, 2011 Type Used: Cigarettes, Pipe 2nd Hand Smoke Exposure: No Recent Foreign Travel: No Contact w/Someone Who Travel: No Recent Infectious Disease Expo: No Recent Hopitalizations: No Immunizations Up To Date Tetanus Booster (TDap): Less than 5yrs PED Vaccines UTD: No Date of Pneumonia Vaccine: June 10, 2012 Date of Influenza Vaccine: Nov 09, 2016 Seasonal Allergies Seasonal Allergies: No Surgeries History of Surgeries: Yes (BOOP-LUNG SURGERY, CATARACTS, DETACHED RETINA; HERNIA REPAIR ) Surgeries: Abdominal, Cardiac, Coronary Stent, Eye Surgery, Tonsillectomy Respiratory History of Respiratory Disorde: Yes Respiratory Disorders: COPD Cardiovascular History of Cardiac Disorders: Yes Cardiac Disorders: Coronary Artery Disease, Hypertension Neurological History of Neurological Disord: Yes (DEMENTIA WITH BEHAVIOR DISTURBANCE) Neurological Disorders: Dementia, Parkinson's Disease, Seizure Disorder, Stroke Reproductive System Hx Reproductive Disorders: No Sexually Transmitted Disease: No HIV/AIDS: No Genitourinary History of Genitourinary Disor: Yes (urinary retention) Genitourinary Disorders: Prostate Problems Gastrointestinal History of Gastrointestinal Di: Yes Gastrointestinal Disorders: Abdominal Hernia, Diverticulosis, C-Diff, Hiatal Hernia Musculoskeletal History of Musculoskeletal Dis: Yes (GENERALIZED WEAKNESS AND FALLS) Musculoskeletal Disorders: Arthritis Endocrine History of Endocrine Disorders: No HEENT History of HEENT Disorders: Yes (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) HEENT Disorders: Cataract, Eye Injury Loss of Vision: Bilateral Hearing Impairment: Hard of Hearing Cancer History of Cancer: No Psychosocial History of Psychiatric Problem: Yes Behavioral Health Disorders: Depression Integumentary History of Skin or Integumenta: Yes Skin/Integumentary Disorders: Psoriasis Blood Transfusions History of Blood Disorders: No Adverse Reaction to a Blood Tr: No Family Medical History Significant Family History: CAD Over 55 Years Old Family Medial History: Cardiovascular disease 19 FATHER, Onset:Unknown Cataracts 19 MOTHER, Onset:Unknown FH: stomach cancer 19 MOTHER, Onset:Unknown Glaucoma 19 MOTHER, Onset:Unknown Review of Systems-General ROS-Unable to Obtain: unable to provide due to patient condition Physical Exam-General Problems Physical Exam Vital Signs Vital Signs - First Documented 03/12/18 06:35 Temp 93.9 Pulse 124 Resp 29 B/P (MAP) 200/144 (162) Pulse Ox 97 O2 Delivery Non Rebreather O2 Flow Rate 15.00 Capillary Refill : Less Than 3 Seconds General Appearance: no apparent distress HEENT: PERRL/EOMI Neck: supple Respiratory: chest non-tender, no respiratory distress, no accessory muscle use Gastrointestinal: non tender, soft, distended Rectal: deferred Back: normal inspection Extremities: normal inspection Neurologic/Psychiatric: alert; No oriented x 3 Skin: pallor (slight erythema on abdomen, may be from rewarming) Lymphatic: no adenopathy Data Review Labs Laboratory Tests 03/12/18 13:18: Lactic Acid Level 2.71*H 03/12/18 14:30: CSF Tube Number 4, CSF Appearance SLT BLDY, CSF Color RED, CSF WBC 1, CSF RBC 5500H, CSF Lymphocytes , CSF Mononuclear WBCs , CSF Polynuclear WBCs , CSF Glucose 102H, CSF Total Protein 134H Microbiology 03/12/18 Gram Stain - Final, Resulted 03/12/18 CSF Culture - Preliminary, Resulted No growth Assessment/Plan Assessment/Plan Assessment/Plan Found down outside hypothermia no venous access seizure history of stroke patient c spine ct no acute fracture or trauma, removed collar in emergency dept. needing central line place, consent was obtained and will be placed. further workup pending for stroke, which Dr. Starr has been in contact with [facility] stroke team. Right IJ central line place with u/s guidance (see dictation), chest x ray to evaluate placement and make sure no pneumothorax. EULALIA NOONAN DO Mar 13, 2018 10:15
--- NOTE | 2018-03-13 14:43 | OPERATIVE REPORT ---
DATE OF SERVICE: 03/12/2018 PREOPERATIVE DIAGNOSIS: Need for venous access. POSTOPERATIVE DIAGNOSIS: Need for venous access. PROCEDURE: Ultrasound-guided right internal jugular vein central line placement. ANESTHESIA: 1% lidocaine. SURGEON: Eulalia Ham DO. ESTIMATED BLOOD LOSS: Minimal. COMPLICATIONS: None. INDICATIONS: The patient is a 77-year-old male with hypothermia who was found down outside and seizure. He does not have venous access. He has an IO. It is requested that a central line will be placed. Consent was already signed and was in the chart. DESCRIPTION OF PROCEDURE: The patient was prepped and draped in sterile fashion. Timeout was performed. The right internal jugular vein was visualized with ultrasound. Using ultrasound guidance, the right internal jugular vein was accessed, dark nonpulsatile blood was withdrawn. Guidewire was inserted through the needle and the needle was removed. An 11 blade scalpel was used to make a stab incision and a dilator was advanced over the guidewire and removed. The triple lumen catheter was advanced over the guidewire and the wire was removed. All three ports were accessed and flushed without difficulty. The triple lumen catheter was then secured using 3-0 silk suture. The area was then washed and dried, sterile bandage was applied. The patient tolerated procedure well without any complications. Chest x-ray is pending. Job ID: [id number] DocumentID: [id number] Dictated Date: 03/13/2018 10:28:14 Masonry Instructor Date: 03/13/2018 14:42:49 Dictated By: EULALIA HAM DO
== END 2018-03-12 14:49 | disposition short-term general hospital (02) ==
LOC: EDUNIT# 06:33 → ER 06:35
DX: T68.XXXA Hypothermia, initial encounter (principal); R41.82 Altered mental status, unspecified; G40.909 Epilepsy, unspecified, not intractable, without status epilepticus; I65.22 Occlusion and stenosis of left carotid artery; D72.829 Elevated white blood cell count, unspecified; R73.9 Hyperglycemia, unspecified; J44.9 Chronic obstructive pulmonary disease, unspecified; I25.10 Atherosclerotic heart disease of native coronary artery without angina pectoris; I10 Essential (primary) hypertension; F03.90 Unspecified dementia, unspecified severity, without behavioral disturbance, psychotic disturbance, mood disturbance, and anxiety; G20 Parkinson's disease; F32.9 Major depressive disorder, single episode, unspecified; Z87.19 Personal history of other diseases of the digestive system; Z87.448 Personal history of other diseases of urinary system; Z86.73 Personal history of transient ischemic attack (TIA), and cerebral infarction without residual deficits; Z90.89 Acquired absence of other organs; Z82.49 Family history of ischemic heart disease and other diseases of the circulatory system; Z98.890 Other specified postprocedural states; Z95.5 Presence of coronary angioplasty implant and graft; X31.XXXA Exposure to excessive natural cold, initial encounter
CPT/HCPCS: 0042T; 36415; 36556; 36680; 51702; 70450; 70496; 70498; 71045; 72125; 72128; 72131; 80053; 80185; 80306; 80320; 81000; 82550; 82945; 82962; 83605; 84157; 84484; 85007; 85027; 85379; 85610; 85730; 87040; 87070; 87205; 89051; 93005; 93041; 94640

== ENCOUNTER 2018-07-06 17:03 | Inpatient (IN) | payer MEDICARE ==
[~2018-07-06] VITALS: Ht 180.3 cm; Wt 100.4 kg
[~2018-07-06 17:03] MED LIST changes: +DIPH25TA31 PO; -VANC125C4 PO; +VANC125C5 PO
--- OUTSIDE RECORDS SUMMARY | 2018-07-06 17:09 | XMS REPORT | Clinical Summary ---
Author Author [facility] Organization [facility] Address Unknown Phone Unavailable Care Team Providers Care Brake Operator Sheet Metal Name Role Phone Oliver Mckeon MD PCP Source Comments Some departments are not documenting in the electronic medical record. If you d o not see the information that you expected, contact [facility] Information Management department at [phone] for further assistan ce in locating additional records.[facility] Allergies No Known Allergies Medications End Date Status Medication Sig Dispensed Refills Start Date Active propranolol (INDERAL) 40 Take 40 mg by 0 mg tablet mouth twice daily. Active potassium chloride SR Take 20 mEq 0 (K-DUR) 20 mEq tablet by mouth daily. Take with a meal and a full glass of water. Active phenytoin SR (DILANTIN) Take 200 mg 0 100 mg capsule by mouth twice daily. Active QUEtiapine (SEROQUEL) 100 Take 100 mg 0 mg tablet by mouth at bedtime daily. Active tamsulosin (FLOMAX) 0.4 Take 0.4 mg 0 mg capsule by mouth daily. Do not crush, chew or open capsules. Take 30 minutes following the same meal each day. Active losartan(+) (COZAAR) 100 Take 100 mg 0 mg tablet by mouth daily. Active ibuprofen (ADVIL) 200 mg Take 200 mg 0 tablet by mouth every 6 hours as needed for Pain. Take with food. Active levETIRAcetam (KEPPRA) Take one 60 tablet 3 750 mg tablet tablet by 9 mouth twice daily. Active Problems Problem Noted Date Seizure 03/16/2018 History of right ACCOUNTANT TAX stroke 03/16/2018 Essential hypertension 03/16/2018 COPD (chronic obstructive pulmonary disease) 03/16/2018 Resolved Problems Problem Noted Date Resolved Date Altered mental state 03/12/2018 03/16/2018 Social History Date Tobacco Use Types Packs/Day Years Used Quit: 06/09/2010 Former Smoker Pipe Smokeless Tobacco: Never Used Sex Assigned at Date Recorded Not on file Industry Job Start Date Occupation Not on file Not on file Not on file Travel End Travel History Travel Start No recent travel history available. 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 Blood Pressure 161/99 03/16/2018 9:30 AM SENIOR UI [employer]X DEVELOPER Pulse 67 03/16/2018 9:30 AM SENIOR UI UX DEVELOPER Temperature 36.5 C (97.7 F) - Respiratory Rate - 03/16/2018 9:30 AM SENIOR UI UX DEVELOPER Oxygen Saturation 94% - Inhaled Oxygen - Concentration 03/12/2018 4:09 PM SENIOR UI UX DEVELOPER Weight 104 kg (229 lb 4.5 oz) 03/12/2018 4:09 PM SENIOR UI UX DEVELOPER Height 182.9 cm (6') 03/12/2018 4:09 PM SENIOR UI UX DEVELOPER Body Mass Index 31.1 Plan of Treatment Health Maintenance Due Date Last Done Comments PHYSICAL (COMPREHENSIVE) 05/22/1947 EXAM DTAP/TDAP VACCINES (1 - 1958 Tdap) SHINGLES RECOMBINANT 1990 VACCINE (1 of 2) PNEUMONIA (PCV13/PPSV23) 2005 VACCINES (1 of 2 - PCV13) INFLUENZA VACCINE 11/09/2018 12/17/2017 Results Not on filefrom Last 3 Months Insurance Type Payer Benefit Subscriber ID Effective Phone Address Plan / Dates Group Medicare MEDICARE MEDICARE xxxxxxxxxxx 2005-P PART A AND resent B Medicare BS [place] BCBS xxxxxxxxxxxx 2018-P SUPPLEMENT resent Advance Directives Patient has advance care planning documents, and code status on file. For more i nformation, please contact: [facility] [address] [place] [address] Date Inactivated Comments Code Status Date Activated 03/16/2018 1:58 PM Full Code 03/12/2018 5:06 PM Provider has discussed Code Status No, more discussion w/Patient or Family? needed
[2018-07-06] MEDS ORDERED: LACTATED RINGERS 1,000 ML IV ONE (17:18)
--- NOTE | 2018-07-06 17:42 | ED General ---
General Chief Complaint: General Problems/Pain Stated Complaint: WEAKNESS Nursing Triage Note: PT ARRIVES VIA EMS WITH C/O GENERALIZED WEAKNESS AND FEELING "WORN OUT" PT DENIES ANY RECENT ILLNESS. PT LIVES AT HOME WITH HIS . TOOK PT OUT OF [facility] AND MOVED HIM HOME. PT HAS HISTORY OF BEING CONFUSED Nursing Sepsis Screen: No Definite Risk Source of Information: Patient Exam Limitations: Physical Impairments (RAVIN MCCRACKEN MD) History of Present Illness Date Seen by Provider: July 06, 2018 Time Seen by Provider: 17:14 Initial Comments Here by EMS report of weakness and just feeling worn out. Patient has baseline confusion. He apparently has become more confused and weak and thus EMS was called. No specific complaint but just feels worn out. arrives and reports that over the last 2-3 days he's had increasing weakness and difficulty with even standing or walking to the bathroom. Currently he is more than she can't even handle and she is concerned about his health. He does have significant seizure disorder. He has had his evening meds for his seizures already. Timing/Duration: 2-3 Days, Getting Worse Severity: Moderate Associated Systoms: No Chest Pain, No Cough, No Fever/Chills, No Nausea/Vomitin g, No Shortness of Air; Weakness (RAVIN MCCRACKEN MD) Allergies and Home Medications Allergies Coded Allergies: No Known Drug Allergies (Unverified , 09/01/16) Home Medications Levetiracetam 500 Mg Tablet, 500 MG PO BID, (Reported) Losartan Potassium 100 Mg Tablet, 100 MG PO DAILY, (Reported) Phenytoin Sodium Extended 100 Mg Capsule, 200 MG PO BID, (Reported) TAKES 2 (100 MG) CAPSULES Potassium Chloride 20 Meq Tablet.er, 20 MEQ PO DAILY, (Reported) Propranolol HCl 40 Mg Tablet, 40 MG PO BID, (Reported) Quetiapine Fumarate 100 Mg Tablet, 100 MG PO HS, (Reported) Sertraline HCl 100 Mg Tablet, 100 MG PO DAILY, (Reported) Tamsulosin HCl 0.4 Mg Cap.er.24h, 0.4 MG PO DAILY, (Reported) Patient Home Medication List Home Medication List Reviewed: Yes (RAVIN MCCRACKEN MD) Review of Systems Review of Systems Constitutional: see HPI; No chills, No fever; weakness EENTM: no symptoms reported Respiratory: No cough, No short of breath Cardiovascular: No chest pain, No edema Gastrointestinal: No abdominal pain, No nausea, No vomiting Genitourinary: no symptoms reported Musculoskeletal: no symptoms reported Psychiatric/Neurological: See HPI (RAVIN MCCRACKEN MD) All Other Systems Reviewed Negative Unless Noted: Yes (RAVIN MCCRACKEN MD) Past Vfvdciy-Jjjwjq-Lxvaaz Hx Past Med/Social Hx: Reviewed Nursing Past Med/Soc Hx (RAVIN MCCRACKEN MD) Patient Social History Alcohol Use: Denies Use Recreational Drug Use: No Type Used: Cigarettes, Pipe Former Smoker, Quit: Feb 14, 2011 2nd Hand Smoke Exposure: No Recent Foreign Travel: No Contact w/Someone Who Travel: No Recent Infectious Disease Expo: No Recent Hopitalizations: No (RAVIN MCCRACKEN MD) Immunizations Up To Date Tetanus Booster (TDap): Less than 5yrs PED Vaccines UTD: No Date of Pneumonia Vaccine: June 10, 2012 Date of Influenza Vaccine: Nov 09, 2016 (RAVIN MCCRACKEN MD) Seasonal Allergies Seasonal Allergies: No (RAVIN MCCRACKEN MD) Past Medical History Surgeries: Yes (BOOP-LUNG SURGERY, CATARACTS, DETACHED RETINA; HERNIA REPAIR ) Abdominal, Cardiac, Coronary Stent, Eye Surgery, Tonsillectomy Respiratory: Yes COPD Currently Using CPAP: No Currently Using BIPAP: No Cardiac: Yes Coronary Artery Disease, Hypertension Neurological: Yes (DEMENTIA WITH BEHAVIOR DISTURBANCE) Dementia, Parkinson's Disease, Seizure Disorder, Stroke Reproductive Disorders: No Sexually Transmitted Disease: No HIV/AIDS: No Genitourinary: Yes (urinary retention) Prostate Problems Gastrointestinal: Yes Abdominal Hernia, Diverticulosis, C-Diff, Hiatal Hernia Musculoskeletal: Yes (GENERALIZED WEAKNESS AND FALLS) Arthritis Endocrine: No HEENT: Yes (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) Cataract, Eye Injury Loss of Vision: Bilateral Hearing Impairment: Hard of Hearing Cancer: No Did You Recieve Any Treatments: No Psychosocial: Yes Depression Integumentary: Yes Psoriasis Blood Disorders: No Adverse Reaction/Blood Tranf: No (RAVIN MCCRACKEN MD) Family Medical History Reviewed Nursing Family Hx (RAVIN MCCRACKEN MD) Cardiovascular disease 19 FATHER, Onset:Unknown Cataracts 19 MOTHER, Onset:Unknown FH: stomach cancer 19 MOTHER, Onset:Unknown Glaucoma 19 MOTHER, Onset:Unknown CAD Over 55 Years Old (RAVIN MCCRACKEN MD) Physical Exam-Suspected Sepsis Physical Exam Vital Signs Vital Signs - First Documented 07/06/18 07/06/18 17:09 17:39 Temp 98.7 Pulse 70 Resp 18 B/P (MAP) 167/92 (117) Pulse Ox 100 O2 Delivery Room Air (JOEL DU MD) Vital Signs Capillary Refill : Less Than 3 Seconds (RAVIN MCCRACKEN MD) Blood Pressure Mean: 117 Height, Weight, BMI Height: 5'11.00" Weight: 220lbs. 0.0oz. 99.903442ok; 29.8 BMI Method:Stated General Appearance: WD/WN, Mild Distress HEENT: PERRL/EOMI, Pharynx Normal Neck: Non Tender, Supple Respiratory: Lungs Clear, Normal Breath Sounds Cardiovascular: Regular Rate, Rhythm, No Murmur Gastrointestinal: Non Tender, Soft Back: Normal Inspection, No CVA Tenderness, No Vertebral Tenderness Extremity: Normal Range of Motion, Non Tender Neurologic/Psychiatric: Alert, Oriented x3 Skin: normal color, warm/dry (RAVIN MCCRACKEN MD) Focused Exam Lactate Level 07/06/18 18:01: Lactic Acid Level 1.40 (JOEL DU MD) Procedures/Interventions Progress After informed consent was obtained verbally after reviewing risks and benefits of procedure, aspiration of the right knee was performed. Skin was cleaned with alcohol. Approximately 2 mL of lidocaine was injected into the insertion site for local anesthetic. Betadine prep was applied. Aspiration was then performed with sterile gloves and equipment. A 16-gauge needle was inserted into the joint space from a lateral suprapatellar approach. About 10 ML of cloudy synovial fluid was aspirated. This was sent to lab for processing. Patient tolerated the procedure well. (JOEL DU MD) Progress/Results/Core Measures Suspected Sepsis Recent Fever Within 48 Hours: No Infection Criteria Present: None New/Unexplained Altered Menta: No Sepsis Screen: No Definite Risk SIRS Temperature:98.7 Pulse: 70 Respiratory Rate: 18 Laboratory Tests 07/06/18 17:35: Blood Pressure 167 /92 Mean: 117 07/06/18 17:35: Laboratory Tests 07/06/18 17:26: 07/06/18 17:35: (RAVIN MCCRACKEN MD) Results/Orders Lab Results Laboratory Tests Test 07/06/18 17:26 07/06/18 17:35 07/06/18 18:00 07/06/18 18:01 Range/Units Prothrombin Time 15.0 H 12.2-14.7 SEC INR Comment 1.1 0.8-1.4 Activated Partial Thromboplast Time 33 24-35 SEC White Blood Count 14.0 H 4.3-11.0 10^3/uL Red Blood Count 4.71 4.35-5.85 10^6/uL Hemoglobin 14.3 13.3-17.7 G/DL Hematocrit 43 40-54 % Mean Corpuscular Volume 91 80-99 FL Mean Corpuscular Hemoglobin 30 25-34 PG Mean Corpuscular Hemoglobin Concent 33 32-36 G/DL Red Cell Distribution Width 13.8 10.0-14.5 % Platelet Count 231 130-400 10^3/uL Mean Platelet Volume 9.5 7.4-10.4 FL Neutrophils (%) (Auto) 71 42-75 % Lymphocytes (%) (Auto) 14 12-44 % Monocytes (%) (Auto) 13 H 0-12 % Eosinophils (%) (Auto) 2 0-10 % Basophils (%) (Auto) 0 0-10 % Neutrophils # (Auto) 9.9 H 1.8-7.8 X 10^3 Lymphocytes # (Auto) 1.9 1.0-4.0 X 10^3 Monocytes # (Auto) 1.9 H 0.0-1.0 X 10^3 Eosinophils # (Auto) 0.2 0.0-0.3 10^3/uL Basophils # (Auto) 0.0 0.0-0.1 10^3/uL Sodium Level 136 135-145 MMOL/L Potassium Level 4.4 3.6-5.0 MMOL/L Chloride Level 104 98-107 MMOL/L Carbon Dioxide Level 25 21-32 MMOL/L Anion Gap 7 5-14 MMOL/L Blood Urea Nitrogen 10 7-18 MG/DL Creatinine 0.73 0.60-1.30 MG/DL Estimat Glomerular Filtration Rate > 60 BUN/Creatinine Ratio 14 Glucose Level 109 H 70-105 MG/DL Uric Acid 3.4 2.6-7.2 MG/DL Calcium Level 8.8 8.5-10.1 MG/DL Corrected Calcium 8.7 8.5-10.1 MG/DL Total Bilirubin 0.8 0.1-1.0 MG/DL Aspartate Amino Transf (AST/SGOT) 15 5-34 U/L Alanine Aminotransferase (ALT/SGPT) 11 0-55 U/L Alkaline Phosphatase 148 H 40-136 U/L Troponin I < 0.028 <0.028 NG/ML Total Protein 7.2 6.4-8.2 GM/DL Albumin 4.1 3.2-4.5 GM/DL Urine Color YELLOW Urine Clarity CLEAR Urine pH 5 5-9 Urine Specific Jerome 1.015 L 1.016-1.022 Urine Protein NEGATIVE NEGATIVE Urine Glucose (UA) NEGATIVE NEGATIVE Urine Ketones NEGATIVE NEGATIVE Urine Nitrite NEGATIVE NEGATIVE Urine Bilirubin NEGATIVE NEGATIVE Urine Urobilinogen 1 NORMAL MG/DL Urine Leukocyte Esterase 1+ H NEGATIVE Urine RBC (Auto) NEGATIVE NEGATIVE Urine RBC NONE /HPF Urine WBC NONE /HPF Urine Squamous Epithelial Cells RARE /HPF Urine Crystals NONE /LPF Urine Bacteria TRACE /HPF Urine Casts NONE /LPF Urine Mucus NEGATIVE /LPF Urine Culture Indicated CULTURE PENDING Lactic Acid Level 1.40 0.50-2.00 MMOL/L C-Reactive Protein High Sensitivity 9.63 H 0.00-0.50 MG/DL Test 07/06/18 19:45 Range/Units Body Fluid Source SYNOVIAL Body Fluid Color PALE YELLOW Body Fluid Appearance MKD CLDY Body Fluid WBC 37956 /uL Body Fluid RBC 250 /uL Body Fluid Polynuclear WBCs 83 % Body Fluid Mononuclear WBCs 4 % Body Fluid Lymphocytes 14 % Body Fluid Other Cells % Body Fluid Crystals NOT SEEN (JOEL DU MD) My Orders Orders - JOEL DU MD Hs C Reactive Protein (07/06/18 18:51) Uric Acid (07/06/18 19:31) Body Fluid Cell Count (07/06/18 19:31) Crystals,Body Fluid (07/06/18 19:31) Body Fluid Culture (07/06/18 19:31) Knee, Right, 2 Views (07/06/18 20:02) Ceftriaxone For Iv Use (Rocephin For I (07/06/18 22:00) (JOEL DU MD) Medications Given in ED Current Medications Medications Dose Ordered Sig/Destiny Route Start Time Stop Time Status Last Admin Dose Admin Ceftriaxone Sodium 1000 mg/ Sterile Water 10 ml @ 200 mls/hr ONCE ONCE IV 07/06/18 22:00 07/06/18 22:02 DC 07/06/18 22:08 200 MLS/HR Lactated Ringer's 1,000 ml @ 0 mls/hr Q0M ONCE IV 07/06/18 17:18 07/06/18 17:21 DC 07/06/18 17:42 0 MLS/HR (JOEL DU MD) Vital Signs/I&O 07/06/18 07/06/18 07/06/18 07/06/18 17:09 17:39 18:07 22:34 Temp 98.7 98.7 98.7 Pulse 70 70 70 Resp 18 18 18 B/P (MAP) 167/92 (117) 167/92 (117) 167/92 (117) Pulse Ox 100 100 100 O2 Delivery Room Air Room Air Room Air Room Air 07/06/18 07/06/18 07/07/18 22:52 23:39 00:02 Temp 97.6 97.6 Pulse 63 62 Resp 20 17 B/P (MAP) 140/74 152/83 (106) Pulse Ox 94 94 94 O2 Delivery Room Air Room Air Room Air 07/07/18 00:00 Intake Total 1000 ml Balance 1000 ml (JOEL DU MD) Vital Signs/I&O Capillary Refill : Less Than 3 Seconds (RAVIN MCCRACKEN MD) Blood Pressure Mean: 117 Progress Note : Progress Note Seen and evaluated. IV, labs, blood cultures and lactic acid ordered. Normal saline 1 L bolus. Chest x-ray and UA ordered. UA to be obtained via straight catheter. EKG ordered. Monitor patient. (RAVIN MCCRACKEN MD) Progress Note : Progress Note Care of this patient was assumed from Dr. Mccracken at shift change. Labs were reviewed. Patient was found to have leukocytosis. CRP was also moderately elevated. No source of infection was initially found on septic workup. Patient complained of right knee pain. Examination of right knee revealed swelling, warmth, and mild erythema. The knee was painful to flexion. Risks and benefits of aspiration were discussed with the patient. He elected to proceed with aspiration. Synovial fluid revealed a WBC of less than 12,000. Case was discussed with Dr. Carvajal. We both agree septic arthritis is unlikely given a WBC count of less than 50,000. After discussion with Dr. Oliver Wagner as well, and per antibiotic therapy with Rocephin was administered. Patient had received a liter of IV fluid as well. I did attempt to stand patient. He was so weak that he could not even sit on his own power. Patient was admitted for generalized weakness, altered mental status, and leukocytosis. Dr. Carvajal agreed to see the patient in consultation. (JOEL DU MD) ECG Initial ECG Impression Date: July 06, 2018 Initial ECG Impression Time: 17:25 Initial ECG Rate: 69 Initial ECG Rhythm: Normal Sinus Comment Sinus rhythm with nonspecific intraventricular conduction delay. Left axis deviation. PVC noted. Similar to previous of 01/20/18. No evidence of ST elevation [place]. Interpreted by me. (RAVIN MCCRACKEN MD) Diagnostic Imaging Diagonstic Imaging: Xray Plain Films/CT/US/NM/MRI: chest Comments Chest x-ray viewed by me and report reviewed. See report below: NAME: MIKEL SELF [facility] REC#: [id number] PT STATUS: REG ER : 1940 PHYSICIAN: RAVIN MCCRACKEN MD ADMIT DATE: 07/06/18/ER Signed Date of Exam: 07/06/18 CHEST 1 VIEW, AP/PA ONLY INDICATION: Weakness and shortness of air. TIME OF EXAM: 05:49 p.m. COMPARISON: Correlation is made with prior study from 03/12/2018. FINDINGS: The heart is enlarged. Lungs are clear. There is no infiltrate or failure. No effusion or pneumothorax is seen. IMPRESSION: No acute cardiopulmonary process is detected. Dictated by: Dictated on workstation # [id number] Dict: 07/06/18 1753 Trans: 07/06/18 1800 Interpreted by: NESTOR MESA MD Electronically signed by: NESTOR MESA MD 07/06/18 1800 Diagonstic Imaging: Xray Plain Films/CT/US/NM/MRI: knee Comments Right knee x-ray viewed by me and report reviewed. See report below: NAME: MIKEL SELF REC#: [id number] PT STATUS: REG ER : 1940 PHYSICIAN: JOEL DU MD ADMIT DATE: 07/06/18/ER Signed Date of Exam: 07/06/18 KNEE, RIGHT, 2 VIEWS INDICATION: Right knee pain. Two views were obtained. FINDINGS: The alignment is normal. There are degenerative changes. There is no fracture or dislocation. Soft tissues are unremarkable. IMPRESSION: Degenerative changes, however, no acute fracture or dislocation. If there is high clinical concern for infection, further evaluation with MRI should be considered. Dictated by: Dictated on workstation # [id number] Dict: 07/06/182038 Trans: 07/06/182112 Interpreted by: IVETH STONE MD Electronically signed by: IVETH STONE MD 07/06/182112 (JOEL DU MD) Departure Communication (Admissions) Time/Spoke to Admitting Phy: 22:00 Dr. Oliver Wagner Time/Spoke to Consulting Phy: 21:12 Dr. Carvajal (JOEL DU MD) Impression Primary Impression: Generalized weakness Additional Impressions: Leukocytosis Qualified Codes: D72.829 - Elevated white blood cell count, unspecified Arthralgia Qualified Codes: M25.561 - Pain in right knee Altered mental status Qualified Codes: R41.82 - Altered mental status, unspecified Seizure disorder Disposition: ADMITTED INPATIENT Condition: Improved Admissions Decision to Admit Reason: Admit from ER (General) Decision to Admit/Date: July 06, 2018 Time/Decision to Admit Time: 21:12 (JOEL DU MD) Departure-Patient Inst. Referrals: OLIVER WAGNER MD (PCP/Family) Primary Care Physician RAVIN MCCRACKEN MD July 06, 2018 17:42 JOEL DU MD July 06, 2018 22:09
[2018-07-06 17:44] LABS: INR 1.1 (0.8-1.4)
[2018-07-06 17:46] LABS: BASOPHILS % (AUTO) 0 % (0-10); EOSINOPHILS # (AUTO) 0.2 10^3/uL (0.0-0.3); EOSINOPHILS % (AUTO) 2 % (0-10); HEMATOCRIT 43 % (40-54); HEMOGLOBIN 14.3 G/DL (13.3-17.7); LYMPHOCYTES # (AUTO) 1.9 X 10^3 (1.0-4.0); LYMPHOCYTES % (AUTO) 14 % (12-44); MEAN CORPUSCULAR HEMOGLOBIN 30 PG (25-34); MEAN CORPUSCULAR HGB CONC 33 G/DL (32-36); MEAN CORPUSCULAR VOLUME 91 FL (80-99); MEAN PLATELET VOLUME 9.5 FL (7.4-10.4); MONOCYTES # (AUTO) 1.9 X 10^3 (0.0-1.0); MONOCYTES % (AUTO) 13 % (0-12); NEUTROPHILS # (AUTO) 9.9 X 10^3 (1.8-7.8); NEUTROPHILS % (AUTO) 71 % (42-75); PLATELET COUNT 231 10^3/uL (130-400); RED CELL DISTRIBUTION WIDTH 13.8 % (10.0-14.5)
--- NOTE | 2018-07-06 17:57 | Diagnostic Imaging Report ---
INDICATION: Weakness and shortness of air. TIME OF EXAM: 05:49 p.m. COMPARISON: Correlation is made with prior study from 03/12/2018. FINDINGS: The heart is enlarged. Lungs are clear. There is no infiltrate or failure. No effusion or pneumothorax is seen. IMPRESSION: No acute cardiopulmonary process is detected. Dictated by: Dictated on workstation # [id number]
[2018-07-06 18:05] LABS: ALANINE AMINOTRANSFERASE 11 U/L (0-55); ALBUMIN 4.1 GM/DL (3.2-4.5); ALKALINE PHOSPHATASE 148 U/L (40-136); BILIRUBIN,TOTAL 0.8 MG/DL (0.1-1.0); BUN/CREATININE RATIO 14; CALCIUM 8.8 MG/DL (8.5-10.1); CARBON DIOXIDE 25 MMOL/L (21-32); CHLORIDE 104 MMOL/L (98-107); CREATININE SERUM 0.73 MG/DL (0.60-1.30); GFR ESTIMATED > 60; GLUCOSE 109 MG/DL (70-105); POTASSIUM 4.4 MMOL/L (3.6-5.0); SODIUM 136 MMOL/L (135-145); TOTAL PROTEIN 7.2 GM/DL (6.4-8.2)
[2018-07-06 18:07] VITALS: BP 167/92
[2018-07-06 18:11] LABS: BILIRUBIN,URINE NEGATIVE (NEGATIVE); CLARITY,URINE CLEAR; COLOR,URINE YELLOW; GLUCOSE, URINE (UA) NEGATIVE (NEGATIVE); KETONES,URINE NEGATIVE (NEGATIVE); LEUKOCYTE ESTERASE ,URINE 1+ (NEGATIVE); NITRITE,URINE NEGATIVE (NEGATIVE); PH,URINE 5 (5-9); PROTEIN,URINE NEGATIVE (NEGATIVE); UROBILINOGEN,URINE 1 MG/DL (NORMAL)
[2018-07-06 18:30] LABS: BACTERIA,URINE TRACE /HPF; SQUAMOUS EPITHELIAL CELL,UR RARE /HPF
[2018-07-06 20:38] LABS: BODY FLUID SOURCE SYNOVIAL
[2018-07-06 20:39] LABS: BODY FLUID APPEARENCE MKD CLDY; BODY FLUID RBC COUNT 250 /uL; BODY FLUID WBC TOTAL COUNT 11775 /uL; LYMPHOCYTES,BODY FLUID 14 %
[2018-07-06 20:43] LABS: BODY FLUID COLOR PALE YELLOW
--- NOTE | 2018-07-06 20:45 | Diagnostic Imaging Report ---
INDICATION: Right knee pain. Two views were obtained. FINDINGS: The alignment is normal. There are degenerative changes. There is no fracture or dislocation. Soft tissues are unremarkable. IMPRESSION: Degenerative changes, however, no acute fracture or dislocation. If there is high clinical concern for infection, further evaluation with MRI should be considered. Dictated by: Dictated on workstation # [id number]
[2018-07-06] MEDS ORDERED: cefTRIAXone FOR IV USE 1,000 MG in WATER (STERILE) FOR INJECTION 10 ML IV ONE (22:00)
[2018-07-06 22:52] VITALS: BP 140/74
--- NOTE | 2018-07-06 22:53 | NUR ---
MIKEL SELF admitted to room 432-1, with an admitting diagnosis of WEAKNESS, on 07/06/18 from ED via [facility], accompanied by STAFF.MIKEL SELF introduced to surroundings, call light, bed controls, phone, TV, temperature control, lights, meal times, smoking policy, visitor policy, side rail policy, bathrooms and showers. Patient Rights given to patient in the handbook. MIKEL SELF verbalizes understanding that [facility] is not responsible for the loss or damage to any personal effects or valuables that are kept in the patients posession during their hospitalization. MIKEL SELF verbalizes understanding of Interdisciplinary Patient Education. Patient and/or family were informed about the Rapid Response Team and its purpose.
[2018-07-07 00:02] VITALS: BP 152/83
[2018-07-07 04:00] VITALS: BP 161/83
--- NOTE | 2018-07-07 05:35 | NUR ---
PATIENT WAS NOT ABLE TO URINATE, BLADDER SCAN WAS DONE AND SHOWED 725ML. DR. WAGNER CALLED BUT NO ANSWER, WILL CALL BACK.
[2018-07-07 05:54] LABS: BASOPHILS % (AUTO) 0 % (0-10); EOSINOPHILS # (AUTO) 0.2 10^3/uL (0.0-0.3); EOSINOPHILS % (AUTO) 2 % (0-10); HEMATOCRIT 41 % (40-54); HEMOGLOBIN 13.5 G/DL (13.3-17.7); LYMPHOCYTES # (AUTO) 1.5 X 10^3 (1.0-4.0); LYMPHOCYTES % (AUTO) 12 % (12-44); MEAN CORPUSCULAR HEMOGLOBIN 30 PG (25-34); MEAN CORPUSCULAR HGB CONC 33 G/DL (32-36); MEAN CORPUSCULAR VOLUME 91 FL (80-99); MEAN PLATELET VOLUME 9.7 FL (7.4-10.4); MONOCYTES # (AUTO) 1.9 X 10^3 (0.0-1.0); MONOCYTES % (AUTO) 16 % (0-12); NEUTROPHILS # (AUTO) 8.5 X 10^3 (1.8-7.8); NEUTROPHILS % (AUTO) 70 % (42-75); PLATELET COUNT 205 10^3/uL (130-400); RED CELL DISTRIBUTION WIDTH 13.9 % (10.0-14.5); WHITE BLOOD COUNT 12.1 10^3/uL (4.3-11.0)
--- NOTE | 2018-07-07 06:22 | NUR ---
PATIENT HAD OUTPUT OF 100ML USING URINAL. WILL REPORT TO DAY SHIFT AND CONTINUE TO MONITOR.
[2018-07-07 06:33] LABS: ALANINE AMINOTRANSFERASE 11 U/L (0-55); ALBUMIN 3.8 GM/DL (3.2-4.5); ALKALINE PHOSPHATASE 135 U/L (40-136); BILIRUBIN,TOTAL 0.8 MG/DL (0.1-1.0); BUN/CREATININE RATIO 14; CALCIUM 8.8 MG/DL (8.5-10.1); CARBON DIOXIDE 20 MMOL/L (21-32); CHLORIDE 107 MMOL/L (98-107); CREATININE SERUM 0.65 MG/DL (0.60-1.30); GFR ESTIMATED > 60; GLUCOSE 105 MG/DL (70-105); POTASSIUM 3.8 MMOL/L (3.6-5.0); SODIUM 139 MMOL/L (135-145); TOTAL PROTEIN 6.9 GM/DL (6.4-8.2)
[2018-07-07 08:00] VITALS: BP 135/87
--- NOTE | 2018-07-07 08:41 | Physical Therapy Evaluation ---
PT Evaluation-General Medical Diagnosis Admission Date July 06, 2018 at 22:00 Medical Diagnosis: weakness Onset Date: July 06, 2018 Therapy Diagnosis Therapy Diagnosis: impaired mobility, strength, endurance Height/Weight Height (Feet): 5 Height (Inches): 11.00 Weight (Pounds): 221 Weight (Ounces): 6.0 Precautions Precautions/Isolations: Seizure, Fall Prevention, Standard Precautions Referral Physician: Basim Espinosa MD Reason for Referral: Evaluation/Treatment Medical History Pertinent Medical History: CAD, COPD, CVA, Dementia, HTN, Parkinson's Additional Medical History Past Medical History Surgeries: Yes (BOOP-LUNG SURGERY, CATARACTS, DETACHED RETINA; HERNIA REPAIR ) Abdominal, Cardiac, Coronary Stent, Eye Surgery, Tonsillectomy Respiratory: Yes COPD Currently Using CPAP: No Currently Using BIPAP: No Cardiac: Yes Coronary Artery Disease, Hypertension Neurological: Yes (DEMENTIA WITH BEHAVIOR DISTURBANCE) Dementia, Parkinson's Disease, Seizure Disorder, Stroke Reproductive Disorders: No Sexually Transmitted Disease: No HIV/AIDS: No Genitourinary: Yes (urinary retention) Prostate Problems Gastrointestinal: Yes Abdominal Hernia, Diverticulosis, C-Diff, Hiatal Hernia Musculoskeletal: Yes (GENERALIZED WEAKNESS AND FALLS) Arthritis Endocrine: No HEENT: Yes (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 Prior/Core FIM Prior Level of Function Therapy Code Descriptions/Definitions Functional [place] Measure: 0=Not Assessed/NA 4=Minimal Assistance 1=Total Assistance 5=Supervision or Setup 2=Maximal Assistance 6=Modified [place] 3=Moderate Assistance 7=Complete [place] Therapy Quality Codes: 6 Independent with activity with or without an assistive device 5 Patient requires set up or clean up by helper. Patient completes activity by themselves 4 Supervision or touching assist (CGA). [place] provide cues , steadying assist 3 The helper provides less than half the effort to complete the activity 2 The helper provides more than half the effort to complete the activity 1 Dependent. The helper does all the effort to complete an activity 7 Patient refused to complete or attempt activity 9 The patient did not perform the activity before the current illness or injury 88 Not attempted due to Medical conditions or safety concerns Functional Abilities and Goals: Independent: Patient completed the activities by him/herself, with or without an assistive device, with no assistance from a helper. Needed Some Help: Patient needed partial assistance from another person to complete activities. Dependent: A helper completed the activities for the patient. Unknown: Not Applicable: Bed Mobility: 6 Transfers (B,C,W/C) (FIM): 6 Gait: 6 Stairs: 6 Indoor Mobility (Ambulation): Independent Stairs: Independent Unsure of the accuracy of previous level of function, patient is confused. PT Evaluation-Current Subjective Patient in bed pre tx, agrees to PT reluctantly, has unrated pain in right knee. Patient refuses to get out of bed but he does agree to at least sit on the edge of the bed. Pt/Family Goals none stated Objective Patient Orientation: Person, Confused ROM/Strength ROM Lower Extremities WNL Strength Lower Extremities unable to test correctly due to patient confusion but he appears to have about 4/5 gross BLE Neuromuscular (Tone, Coordination, Reflexes) NT Sensory Hearing: Impaired Sensation Right Lower Extremit: Intact Sensation Left Lower Extremity: Intact Transfers Therapy Code Descriptions/Definitions Functional [place] Measure: 0=Not Assessed/NA 4=Minimal Assistance 1=Total Assistance 5=Supervision or Setup 2=Maximal Assistance 6=Modified [place] 3=Moderate Assistance 7=Complete [place] Transfers (B, C, W/C) (FIM): 3 Scootin Rollin Supine to/from Sit: 3 Mod assist for supine <-> sit. He was only willing to sit for about 5 min be fore stating he needed to lay back down. Balance Sitting Static: Fair Sitting Dynamic: Fair Treatment seated exercises x15 LAQ Assessment/Needs Patient has impaired mobility, strength, endurance. He is very tired and participated minimally in PT. Patient BTB post tx with nurse call, phone, tray, all needs met, bed alarm on. Rehab Potential: Fair PT Short Term Goals Short Term Goals Time Frame: Jul 14, 2018 Transfers (B,C,W/C) (FIM): 4 Gait (FIM): 1 Gait Distance Comment: 20' Gait Level of Assist: 4 Gait Assistive Device: FWW PT Plan Problem List Problem List: Activity Tolerance, Functional Strength, Safety, Balance, Gait, Transfer, Bed Mobility Treatment/Plan Treatment Plan: Continue Plan of Care Treatment Plan: Bed Mobility, Concurrent Therapy, Education, Functional Activity Roberto, Functional Strength, Gait, Safety, Therapeutic Exercise, Transfers Treatment Duration: Jul 14, 2018 Frequency: 6 times per week Estimated Hrs Per Day: .25 hour per day (15-30') Patient and/or Family Agrees t: Yes Safety Risks/Education Patient Education: Transfer Techniques, Correct Positioning, Safety Issues Teaching Recipient: Patient Teaching Methods: Demonstration, Discussion Response to Teaching: Reinforcement Needed Discharge Recommendations Plan Patient will perform bed mobility and transfer training, balance and endurance training, functional strengthening, stair training, gait training, and education, to improve functional mobility and independence at home. Therapy D/C Recommendations: Home w/ Family Support, Long-Term (TCU/NH) Time/GCodes Time In: 821 Time Out: 0835 Total Billed Treatment Time: 13 Total Billed Treatment 1 visit JAE 13' NAREN GEORGE PT July 07, 2018 08:41
[2018-07-07] MEDS ORDERED: TAMS0.4C98 PO (08:57)
[2018-07-07] MEDS ORDERED: LEVE750T5 PO (08:57)
--- NOTE | 2018-07-07 09:00 | NUR ---
SPOKE WITH THE PATIENTS ABOUT MEDICATIONS. WE WENT OVER THE EXT MED HX AND SHE VERIFIED HOW HE TAKES THEM. HE IS NOT CURRENTLY TAKING FLOMAX. HE TAKES BENADRYL OTC BID FOR ITCHING.
[2018-07-07] MEDS: PHENYTOIN 100 MG (DILANTIN) CAP PO SCH ×2 (09:22→20:54)
[2018-07-07] MEDS: PROPRANOLOL 20 MG (INDERAL) TABLET PO SCH ×2 (09:22→20:53)
[2018-07-07] MEDS: LEVETIRACETAM 500 MG (KEPPRA) TAB PO SCH ×2 (09:22→20:53)
[2018-07-07] MEDS: LOSARTAN 100 MG (COZAAR) TABLET PO SCH (09:23)
--- NOTE | 2018-07-07 09:31 | History & Physical ---
History of Present Illness History of Present Illness Reason for visit/HPI 78 yo M admitted last night for progressing weakness and worsening knee pain. He does have a history of seizures and has been compliant with his medicine; (he did have a seizure in March due to not taking his medicine). No recent seizures. Pt's is concerned he is becoming a bigger task than she is able to care for. He also has a history of getting in a bad mood and refusing to do much for himself- he does lack effort at times- and can get verbal with staff and . Right knee pain- no reported injury or fall. Right knee aspiration had 11K WBC, cloudy. Dr. Carvajal, orthopedics was consulted. Date of Admission July 06, 2018 at 22:00 Date Seen by a Provider: July 07, 2018 Time Seen by a Provider: 08:00 I consulted on this patient on 07/07/18 09:24 Attending Physician Oliver Wagner MD Admitting Physician Oliver Wagner MD Consult Orthopedics Allergies and Home Medications Allergies Coded Allergies: No Known Drug Allergies (Unverified , 09/01/16) Home Medications Acetaminophen 500 Mg Tablet, 500 MG PO Q6HR PRN for PAIN-MILD Prescribed by: OLIVER WAGNER on 07/09/18 0919 Diphenhydramine HCl 25 Mg Tablet, 25 MG PO BID, (Reported) Levetiracetam 750 Mg Tablet, 750 MG PO BID, (Reported) Losartan Potassium 100 Mg Tablet, 100 MG PO DAILY, (Reported) Phenytoin Sodium Extended 100 Mg Capsule, 200 MG PO BID, (Reported) TAKES 2 (100 MG) CAPSULES Potassium Chloride 20 Meq Tablet.er, 20 MEQ PO DAILY, (Reported) Propranolol HCl 40 Mg Tablet, 40 MG PO BID, (Reported) Quetiapine Fumarate 100 Mg Tablet, 100 MG PO HS, (Reported) Sertraline HCl 100 Mg Tablet, 100 MG PO DAILY, (Reported) Patient Home Medication List Home Medication List Reviewed: Yes Past Itbixoc-Mrsxpg-Uteida Hx Patient Social History Alcohol Use: Denies Use Recreational Drug Use: No Smoking Status: Former Smoker Former Smoker, Quit: Feb 14, 2011 Type Used: Cigarettes, Pipe 2nd Hand Smoke Exposure: No Recent Foreign Travel: No Contact w/other who traveled: No Recent Hopitalizations: No Recent Infectious Disease Expo: No Immunizations Up To Date Tetanus Booster (TDap): Less than 5yrs Pediatric: No Date of Pneumonia Vaccine: June 10, 2012 Date of Influenza Vaccine: Nov 09, 2016 Seasonal Allergies Seasonal Allergies: No Surgeries Yes (BOOP-LUNG SURGERY, CATARACTS, DETACHED RETINA; HERNIA REPAIR ) Abdominal, Cardiac, Coronary Stent, Eye Surgery, Tonsillectomy Respiratory Yes Pneumonia Currently Using CPAP: No Currently Using BIPAP: No Cardiovascular Yes Coronary Artery Disease, Hypertension Neurological Yes (DEMENTIA WITH BEHAVIOR DISTURBANCE) Dementia, Parkinson's Disease, Seizure Disorder, Stroke Reproductive System Hx Reproductive Disorders: No Sexually Transmitted Disease: No HIV/AIDS: No Genitourinary Yes (urinary retention) Prostate Problems Gastrointestinal Yes Abdominal Hernia, Diverticulosis, C-Diff, Hiatal Hernia Musculoskeletal Yes (GENERALIZED WEAKNESS AND FALLS) Arthritis Endocrine History of Endocrine Disorders: No HEENT History of HEENT Disorders: Yes (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) HEENT Disorders: Cataract, Eye Injury Loss of Vision: Bilateral Hearing Impairment: Hard of Hearing Cancer No Did You Recieve Any Treatments: No Psychosocial History of Psychiatric Problem: Yes Behavioral Health Disorders: Depression Integumentary History of Skin or Integumenta: Yes Skin/Integumentary Disorders: Psoriasis Blood Transfusions History of Blood Disorders: No Adverse Reaction to a Blood Tr: No Family Medical History Significant Family History: CAD Over 55 Years Old Family Hx: Cardiovascular disease 19 FATHER, Onset:Unknown Cataracts 19 MOTHER, Onset:Unknown FH: stomach cancer 19 MOTHER, Onset:Unknown Glaucoma 19 MOTHER, Onset:Unknown Review of Systems Review of Systems General: No Chills, No Night Sweats HEENT: No Head Aches, No Visual Changes Pulmonary: No Dyspnea, No Cough Cardiovascular: No: Chest Pain, Palpitations Gastrointestinal: No: Nausea, Vomiting Genitourinary: No Dysuria Musculoskeletal: leg pain (right knee); No: neck pain, shoulder pain Neurological: Weakness All Other Systems Reviewed All Other Systems Reviewed: Yes Physical Exam Vital Signs Vital Signs - First Documented 07/06/18 07/06/18 17:09 17:39 Temp 98.7 Pulse 70 Resp 18 B/P (MAP) 167/92 (117) Pulse Ox 100 O2 Delivery Room Air Capillary Refill : Less Than 3 Seconds Height, Weight, BMI Height: 5'11.00" Weight: 221lbs. 6.0oz. 100.564995br; 30.9 BMI Method:Stated General Appearance: No Apparent Distress, WD/WN HEENT: PERRL/EOMI Neck: Non Tender, Supple Respiratory: Chest Non Tender, Lungs Clear, Normal Breath Sounds, No Accessory Muscle Use Cardiovascular: Regular Rate, Rhythm, No Edema Gastrointestinal: Non Tender, Soft Rectal: Deferred Extremity: Non Tender, No Calf Tenderness, Other (right knee painful to range of motion- slightly warmer than left knee.) Neurologic/Psychiatric: Alert, Oriented x3, Normal Mood/Affect Skin: Normal Color, Warm/Dry Assessment/Plan Assessment/Plan Admission Dx progressing weakness right knee pain- possible joint infection. seizure disorder leukocytosis Admission Status: Inpatient Order (span 2 midnights) Reason for Inpatient Admission: Since there is concern for possible right knee septic joint he will require a stay of over 2 midnights to further evaluate- Also patient is unsafe at home at this time due to high fall risk and unable to care for himself. Assessment and Plan - resuming home medicines for htn, seizure prevention -started on rocephin -wbc improved today -electrolytes in range. Dr. Carvajal to see patient today. -Continue PT to help with his weakness -goal to get him back home but may require placement. Case Management will be utilized. Problems: (1) Right knee pain Qualifiers: Qualified Codes: M25.561 - Pain in right knee (2) Malaise and fatigue (3) Generalized weakness (4) Seizure disorder (5) Altered mental status Qualifiers: Qualified Codes: R41.82 - Altered mental status, unspecified (6) Leukocytosis Qualifiers: Qualified Codes: D72.829 - Elevated white blood cell count, unspecified Clinical Quality Measures DVT/VTE Risk/Contraindication: Risk Factor Score Per Nursin RFS Level Per Nursing on Admit: 4+=Very High OLIVER WAGNER MD July 07, 2018 09:31
--- NOTE | 2018-07-07 10:48 | Consultation - Ortho ---
Consult - Ortho Chief complaintright knee pain History of present illnessthe patient is a 78-year-old white male who was admitted last evening for weakness and possible septic right knee joint. Denies any injury to his right knee. He stated it started hurting yesterday. Prior to that he denied any fall, twisting injury or change in activity. He denies any previous aches or pains. Knee was aspirated in the ER and his white count from the aspirate was approximately 12,000. His CRP was elevated at 9 and again at 12. His white count was 14,000 and this morning it was approximately 12,000. He states he has pain with any motion. He denies any other joint pain. Review of systems was reviewed and no additions or changes Exam of the right knee reveals minimal swelling. Mild joint line pain both medial and lateral. Pain with any motion of the knee. There is minimal warmth. Minimal redness. Mild fullness posterior. Negative Homans. No instability in the knee. Again I can only move him from about 5 to 40. He has no pain with motion of the hip. No pain with motion of the ankle. He is neurovascularly i ntact to the right lower extremity. X-rays were reviewed from last evening which shows spurring off the articular surface of patella spurring inferior as well as anterior superior aspect. He has rounded bony ossicle just proximal to the tibial tubercle. He has calcification of his meniscus both medial and lateral Again his lab was reviewed and is as above. Impressionprobable osteoarthritic flareup. Planthe above was discussed with the patient. His findings on the aspirate are not consistent with a septic knee with a white count of approximately 12,000. He easily a septic knee has white count of at least 50,000. There is a remote possibility that this could be an early infection. The appearance of his knee does not suggest an infection as well. This could be an arthritic flareup. With the meniscal calcification he could have pseudogout although there were no crystals in the aspirate. He is presently on Rocephin. At this time I would recommend continued observation. If the appearance and symptoms in the knee worsen may consider re-aspiration or possible arthroscopic irrigation. If his symptoms and lab work improve may consider injection of the knee with cortisone. JOHNY MARTIN MD July 07, 2018 10:48
[2018-07-07 16:15] VITALS: BP 149/73
[2018-07-07 19:02] VITALS: BP 151/69
[2018-07-07] MEDS: QUEtiapine 100 MG (SEROquel) TAB IMMEDIATE RELEASE PO SCH (20:53)
[2018-07-07] MEDS: cefTRIAXone FOR IV USE 1,000 MG in WATER (STERILE) FOR INJECTION 10 ML IV SCH (20:54)
[2018-07-07] MEDS ORDERED: NON-FORMULARY MEDICATION 1 EA EA (Quetiapine Fumarate 100 MG) PO SCH (21:00)
[2018-07-07] MEDS ORDERED: NON-FORMULARY MEDICATION 1 EA EA (Propranolol HCl 40 MG) PO SCH (21:00)
[2018-07-08] VITALS (7 sets, daily range): BP systolic 125–158; BP diastolic 65–82
[2018-07-08] MEDS: KCL 20 MEQ TAB (K-DUR) PO SCH (06:06)
--- NOTE | 2018-07-08 08:42 | Progress Note (SOAP) ---
Subjective Subjective Date Seen by Provider: July 08, 2018 Time Seen by Provider: 08:39 Denies any overnight events. Pt reports his knee still hurts to try and bend it. He is not participating in therapy much. No issues with eating drinking or going to the bathroom. He does have a little urinary retention- We are holding his home dose of benadryl as this could be contributing. Review of Systems General: No Chills, No Night Sweats HEENT: No Head Aches Pulmonary: No Dyspnea, No Cough Cardiovascular: No: Chest Pain Gastrointestinal: No: Nausea, Vomiting Genitourinary: No Dysuria Musculoskeletal: leg pain (right knee) Neurological: Weakness All Other Systems Reviewed All Other Systems Reviewed: Yes Objective Exam Vital Signs Vital Signs Date Time Temp Pulse Resp B/P (MAP) Pulse Ox O2 Delivery O2 Flow Rate FiO2 07/09/18 09:17 Room Air 07/08/18 23:05 97.6 80 18 138/80 (99) 93 Room Air 07/08/18 20:00 96.3 65 16 146/82 (103) 94 Room Air 07/08/18 20:00 Room Air 07/08/18 16:00 96.8 61 18 142/75 (97) 94 Room Air 07/08/18 12:00 98.8 80 18 145/70 (95) 94 Room Air I & O 07/09/18 07:00 Intake Total 1150 ml Output Total 400 ml Balance 750 ml General Appearance: WD/WN, Mild Distress HEENT: PERRL/EOMI, Pharynx Normal Neck: Non Tender, Supple Respiratory: Lungs Clear, Normal Breath Sounds Cardiovascular: Regular Rate, Rhythm, No Murmur Gastrointestinal: Non Tender, Soft Back: Normal Inspection, No CVA Tenderness, No Vertebral Tenderness Extremity: No Normal Range of Motion; Non Tender, Other (right knee- painful to range of motion) Neurologic/Psychiatric: Alert, Oriented x3 Results Lab Microbiology 07/06/18 Blood Culture - Preliminary, Resulted No growth 07/06/18 Gram Stain - Final, Resulted 07/06/18 Body Fluid Culture - Preliminary, Resulted No growth 07/06/18 Urine Culture - Final, Complete NO GROWTH Assessment/Plan Assessment/Plan Admission Dx progressing weakness right knee pain- possible joint infection. seizure disorder leukocytosis Assessment and Plan 07/08/18 resumed home medicines for htn, seizure prevention -Dr. Carvajal considering a steroid injection in his right knee. -Continue PT to help with his weakness -goal to get him back home but may require placement. Case Management will be utilized. Dispo: close to discharge- plan for 07/09/18- blood cultures, right knee aspiration cultures pending. Problems: (1) Right knee pain Qualifiers: Qualified Codes: M25.561 - Pain in right knee (2) Malaise and fatigue (3) Generalized weakness (4) Seizure disorder (5) Altered mental status Qualifiers: Qualified Codes: R41.82 - Altered mental status, unspecified Assessment & Plan: resolved (6) Leukocytosis Qualifiers: Qualified Codes: D72.829 - Elevated white blood cell count, unspecified Assessment & Plan: improved Admission Dx progressing weakness right knee pain- possible joint infection. seizure disorder leukocytosis Clinical Quality Measures Admission Status Admission Dx progressing weakness right knee pain- possible joint infection. seizure disorder leukocytosis DVT/VTE Risk/Contraindication: Risk Factor Score Per Nursin RFS Level Per Nursing on Admit: 4+=Very High BRYANT WAGNER MD July 08, 2018 08:42
[2018-07-08] MEDS ORDERED: ACETAMINOPHEN 500 MG TAB (TYLENOL) ONE (08:44)
[2018-07-08] MEDS: SERTRALINE 100 MG (ZOLOFT) TAB PO SCH (08:45)
[2018-07-08] MEDS: PROPRANOLOL 20 MG (INDERAL) TABLET PO SCH ×2 (08:45→22:58)
[2018-07-08] MEDS: PHENYTOIN 100 MG (DILANTIN) CAP PO SCH ×2 (08:46→22:58)
[2018-07-08] MEDS: LEVETIRACETAM 500 MG (KEPPRA) TAB PO SCH ×2 (08:46→22:58)
[2018-07-08] MEDS: LOSARTAN 100 MG (COZAAR) TABLET PO SCH (08:46)
[2018-07-08] MEDS ORDERED: ACETAMINOPHEN 500 MG TAB (TYLENOL) PO PRN (09:00)
[2018-07-08] MEDS ORDERED: NON-FORMULARY MEDICATION 1 EA EA (Potassium Chloride 20 MEQ) PO SCH (09:00)
--- NOTE | 2018-07-08 09:51 | NUR ---
CM/SS, respond to consult and visited with spouse Mariam Lockhart about post hospital care. She has requested a referral be made to [facility] for a short term rehab stay and she has already begun to make plans for patient to then admit to assisted living, [facility]. Referral sent to [facility], await confirmation of acceptance. Physician indicates discharge tomorrow if patient continues medically stable. Will explore whether CARE Assessment remains current.
[2018-07-08] MEDS ORDERED: BETAMETHASONE ACE/NA PHOS 6 MG/ML (CELESTONE SOLUSPAN) IM ONE ×2 (10:00→10:45)
[2018-07-08] MEDS ORDERED: BUPIVACAINE 0.25% 30 ML (SENSORCAINE) VIAL INJ ONE (10:00)
--- NOTE | 2018-07-08 10:11 | NUR ---
CM/SS. MLP has confirmed acceptance for skilled care, PT/OT and RN. CARE Assessment pending. Updated physician.
[2018-07-08] MEDS ORDERED: BETAMETHASONE ACE/NA PHOS 6 MG/ML (CELESTONE SOLUSPAN) IM NR (10:45)
--- NOTE | 2018-07-08 11:03 | NUR ---
RIGHT KNEE INJECTION DONE AT BEDSIDE BY DR MARTIN. PT TOLERATED WELL.
--- NOTE | 2018-07-08 11:24 | Progress Note - Ortho ---
Progress Note Mr. Coronel continues with right knee pain. He states he has not been up ambulating but there is a walker in his room. His tap is 99.1 this morning. Exam of the knee shows a minimal effusion. No redness. Minimal warmth. Minimal posterior knee fullness. No calf tenderness and negative Homans. I was able to get him to full extension today and flexed him up to 90 with some mild pain. His Gram stain showed no bacteria in his preliminary culture of the synovial fluid is no growth. Spoke with Dr. Mckeon this morning about injecting his knee and he saw no problem with proceeding. Considering his findings and exam most likely this is an arthritic flareup of the right knee. Patient states he's had multiple injections in the past to both of his knees as well as other joints. He states he hasn't had an injection to the knee and over 6 years. He said no problems in the past with cortisone injections. We will proceed with injection of the right knee. Procedurethe right knee lateral joint space was prepped with Betadine and alcohol and then injected with 12 mg of Celestone and 4 mL's of 0.5 percent Marcaine plain. The knee was then cleansed with alcohol and Band-Aid was applied. Prior to injection I discussed the procedure and identified the right knee is the joint we were injecting. The patient agreed to proceed. Microbiology 07/06/18 Blood Culture - Preliminary, Resulted No growth 07/06/18 Gram Stain - Final, Resulted 07/06/18 Body Fluid Culture - Preliminary, Resulted No growth 07/06/18 Urine Culture - Final, Complete NO GROWTH Vital Signs Date Time Temp Pulse Resp B/P (MAP) Pulse Ox O2 Delivery O2 Flow Rate FiO2 07/08/18 08:00 Room Air 07/08/18 03:53 99.1 72 18 129/70 (89) 92 Room Air 07/08/18 01:00 98.9 65 18 125/69 (87) 92 Room Air 07/07/18 20:00 Room Air 07/07/18 19:02 98.3 67 18 151/69 (96) 94 Room Air 07/07/18 16:15 98.8 64 18 149/73 (98) 93 Room Air I & O 07/08/18 07:00 Intake Total 1320 ml Output Total 500 ml Balance 820 ml Focused Exam Lactate Level 07/06/18 18:01: Lactic Acid Level 1.40 Clinical Quality Measures DVT/VTE Risk/Contraindication: Risk Factor Score Per Nursin RFS Level Per Nursing on Admit: 4+=Very High JOHNY MARTIN MD July 08, 2018 11:24
--- NOTE | 2018-07-08 15:51 | Physical Therapy Progress Note ---
Therapy Progress Note Pt is asleep upon arrival. JOINT SETTER tries to awaken pt a couple times and advises pt that his gown is pulled up and JOINT SETTER tries to pull it back down to cover him. Pt awakens and gets mad. When JOINT SETTER asks if pt will participate in PT, pt adamantly states NO. PT will attempt tomorrow. 1, no tx rendered JESS RUIZ JOINT SETTER July 08, 2018 15:51
[2018-07-08] MEDS: cefTRIAXone FOR IV USE 1,000 MG in WATER (STERILE) FOR INJECTION 10 ML IV SCH (22:58)
[2018-07-08] MEDS: QUEtiapine 100 MG (SEROquel) TAB IMMEDIATE RELEASE PO SCH (22:58)
--- NOTE | 2018-07-09 06:21 | NUR ---
PT HAS YET TO URINATE SINCE 2300 LAST NIGHT. WHEN EDUCATING PT ON THE NEED TO URINATE HE BECAME VERY LOUD AND IRRITATED. HAD PCT GO IN AND TRY TO BLADDER SCAN PT AT 0545 AND PT STATED "I'LL PEE WHEN I NEED TO PEE DAMNIT" AND TRIED TO PUNCH THE PCT. OTHER RN WAS ABLE TO CONVINCE PT TO LET US BLADDER SCAN HIM. BLADDER SCAN SHOWED 681ML. LET PT KNOW WE WOULD TALK TO THE DOCTOR BUT WOULD MORE THAN LIKELY HAVE TO STRAIGHT HIM HIM. PT STATED "YOU DONT HAVE TO DO NOTHING, I'LL PEE WHEN I PEE DAMNIT, LEAVE ME ALONE". TRIED TO CALL BRYANT WAGNER AT 0619 AND 0620. UNABLE TO GET AHOLD OF DOCTOR AT THIS TIME. WILL CONTINUE TO MONITOR PT.
[2018-07-09] MEDS: KCL 20 MEQ TAB (K-DUR) PO SCH (06:36)
[2018-07-09 08:00] VITALS: BP 153/91
--- NOTE | 2018-07-09 09:17 | Discharge Inst-Skilled Nursing ---
Discharge Inst-Skilled NF Patient Instructions Patient Problems: -right knee pain- osteoarthritis- he received a steroid injection 07/09/18 -generalized weakness -history of seizures -depression with behavioral disturbance- verbal and refuses to participate in therapies Goal: work with physical therapy and OT to return home- -- notes that since his right knee started hurting he has been unable to wipe his butt - so this would be a goal for him. Consult/Follow Up/Orders Follow Up Appt.: 2 weeks at [facility] Skilled NF Admit to: [facility] Certification ([facility]) I certify that SNF services are required to be given on an inpatient basis because of the above named patient's need for halfway care on a continuing basis for the conditions(s) for which he/she was receiving inpatient hospital services prior to his/her transfer to the SNF. Correction Facility Order: Nursing Services, Math Specialist-Evaluate & Treat (self care and hygiene), Physical Therapy-Evaluate & Treat Oxygen Delivery Method: Room Air Discharge Diet: Regular Diet Daily Activity as Tolerated: Yes New & Resume Previous Orders New & Resume Previous Orders hold blood pressure medications (propranolol and losartan) for systolic <100 or diastolic <60 and heart rate less than 55 Oliver Wagner July 09, 2018 09:12 OLIVER WAGNER MD July 09, 2018 09:17
[2018-07-09] MEDS ORDERED: ACET-77 PO (09:19)
--- NOTE | 2018-07-09 09:25 | Progress Note - Ortho ---
Progress Note Mr. Coronel is still complaining of pain right knee. He had an injection yesterday of Celestone 12 mg and 4 mL's of 0.25 percent Marcaine. He is afebrile. Exam of the knee reveals minimal effusion. No redness. No warmth. I ask him to move the knee any went from full extension to 100 of flexion with minimal pain. He stated it hurt but he moved it very freely and did not show any signs of pain. He has no calf tenderness and negative Homans. At this point, I feel that Mr. Coronel is noted improvement since his admission and needs me better after the injection although it's been less than 24 hours. I explained to them that some people noted immediate improvement after day or 2 but it could take 2-3 weeks to see the maximum benefit. From an orthopedic point of view he can continue with activities as tolerated and could be discharged with follow-up in the office as an outpatient. Microbiology 07/06/18 Blood Culture - Preliminary, Resulted No growth 07/06/18 Gram Stain - Final, Resulted 07/06/18 Body Fluid Culture - Preliminary, Resulted No growth 07/06/18 Urine Culture - Final, Complete NO GROWTH Vital Signs Date Time Temp Pulse Resp B/P (MAP) Pulse Ox O2 Delivery O2 Flow Rate FiO2 07/09/18 09:17 Room Air 07/08/18 23:05 97.6 80 18 138/80 (99) 93 Room Air 07/08/18 20:00 96.3 65 16 146/82 (103) 94 Room Air 07/08/18 20:00 Room Air 07/08/18 16:00 96.8 61 18 142/75 (97) 94 Room Air 07/08/18 12:00 98.8 80 18 145/70 (95) 94 Room Air I & O 07/09/18 07:00 Intake Total 1150 ml Output Total 400 ml Balance 750 ml Focused Exam Lactate Level 07/06/18 18:01: Lactic Acid Level 1.40 Clinical Quality Measures DVT/VTE Risk/Contraindication: Risk Factor Score Per Nursin RFS Level Per Nursing on Admit: 4+=Very High JOHNY MARTIN MD July 09, 2018 09:25
--- NOTE | 2018-07-09 09:29 | Discharge Summary ---
Diagnosis/Chief Complaint Date of Admission July 06, 2018 at 22:00 Date of Discharge 07/09/18 Admission Diagnosis Admission Diagnosis (1) Right knee pain Qualifiers: Qualified Codes: M25.561 - Pain in right knee (2) Malaise and fatigue (3) Generalized weakness (4) Seizure disorder (5) Altered mental status Qualifiers: Qualified Codes: R41.82 - Altered mental status, unspecified (6) Leukocytosis Discharge Diagnosis (1) Right knee pain Qualifiers: Qualified Codes: M25.561 - Pain in right knee Osteoarthritis (2) Malaise and fatigue (3) Generalized weakness (4) Seizure disorder- stable (5) Altered mental status - resolved (6) Leukocytosis 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 Reason Hospital Visit 78 yo M admitted last night for progressing weakness and worsening knee pain. He does have a history of seizures and has been compliant with his medicine; (he did have a seizure in March due to not taking his medicine). No recent seizures. Pt's is concerned he is becoming a bigger task than she is able to care for. He also has a history of getting in a bad mood and refusing to do much for himself- he does lack effort at times- and can get verbal with staff and . Right knee pain- no reported injury or fall. Right knee aspiration had 11K WBC, cloudy. Dr. Carvajal, orthopedics was consulted. Discharge Summary Hospital Course Hospital Course 78 yo M admitted for progressing weakness attributed to right knee pain- He was also admitted for further evaluation in regards to the right knee being infected. He was started on rocephin but this was discontinued when it was determined his knee was likely not septic. Since is knee pain persisted - orthopedics did a steroid injection with resulting improvement in range of motion. Patient was discharged to [facility] as he was unsafe to care for himself at home and is high fall risk. Goal would be for him to work with PT/OT and get his strength back to return home. Labs Procedures None. Consultations Orthopedics Dr. Carvajal Discharge Physical Examination Allergies: Coded Allergies: No Known Drug Allergies (Unverified , 09/01/16) Vitals & I&Os Vital Signs Date Time Temp Pulse Resp B/P (MAP) Pulse Ox O2 Delivery O2 Flow Rate FiO2 07/09/18 13:25 07/09/18 10:32 Room Air 07/09/18 08:00 96.6 55 16 97 General Appearance: Alert, Oriented X3 HEENT: Atraumatic Cardiovascular: Regular Rate Abdominal: Normal Bowel Sounds, Soft Extremities: Other (ROM improved in right knee after injection (steroid)) Neuro: Normal Speech Discharge Home Medications Reviewed and agree with Discharge Medication list on patient's Discharge Instruction sheet Instructions to Patient/Family Please see electronic discharge instructions given to patient. Clinical Quality Measures DVT/VTE Risk/Contraindication: Risk Factor Score Per Nursin RFS Level Per Nursing on Admit: 4+=Very High BRYANT WAGNER MD July 09, 2018 09:29
[2018-07-09] MEDS: PHENYTOIN 100 MG (DILANTIN) CAP PO SCH (10:03)
[2018-07-09] MEDS: LEVETIRACETAM 500 MG (KEPPRA) TAB PO SCH (10:03)
[2018-07-09] MEDS: SERTRALINE 100 MG (ZOLOFT) TAB PO SCH (10:04)
[2018-07-09] MEDS: LOSARTAN 100 MG (COZAAR) TABLET PO SCH (10:04)
[2018-07-09] MEDS: PROPRANOLOL 20 MG (INDERAL) TABLET PO SCH (10:04)
--- NOTE | 2018-07-09 10:46 | NUR ---
CM/SS. Patient discharged today to new Medicare skilled placement with [facility] via their transport scheduled for 1300. CARE Assessment completed with patient and with spouse by phone, processed with [facility]. Orders and CARE faxed to [facility], packet prepared to accompany patient. Spouse updated about arrangements, she will meet patient later at SNF, she has already been here this a.m. Unit RN aware.
== END 2018-07-09 13:25 | DRG 554 ==
LOC: EDUNIT# 17:03 → ER 17:04 → 4TH 22:00 → UNDOADMIN 22:00
PROVIDERS: ADMIT Family Medicine; ATTEND Family Medicine
PROC: 0S9C3ZX Drainage of Right Knee Joint, Percutaneous Approach, Diagnostic (ICD-10-PCS; principal; 2018-07-06)
PROC: 3E0U33Z Introduction of Anti-inflammatory into Joints, Percutaneous Approach (ICD-10-PCS; 2018-07-08)
DX: M17.11 Unilateral primary osteoarthritis, right knee (principal); M25.861 Other specified joint disorders, right knee; D72.829 Elevated white blood cell count, unspecified; R53.1 Weakness; F03.91 Unspecified dementia, unspecified severity, with behavioral disturbance; R41.82 Altered mental status, unspecified; G40.909 Epilepsy, unspecified, not intractable, without status epilepticus; Z66 Do not resuscitate; J44.9 Chronic obstructive pulmonary disease, unspecified; I25.10 Atherosclerotic heart disease of native coronary artery without angina pectoris; I10 Essential (primary) hypertension; G20 Parkinson's disease; I69.998 Other sequelae following unspecified cerebrovascular disease; H54.60 Unqualified visual loss, one eye, unspecified; N42.9 Disorder of prostate, unspecified; R33.9 Retention of urine, unspecified; F32.9 Major depressive disorder, single episode, unspecified; Z95.5 Presence of coronary angioplasty implant and graft; Z87.891 Personal history of nicotine dependence; Z91.81 History of falling
CPT/HCPCS: 36415; 51702; 71045; 73560; 80053; 80185; 81000; 83605; 84484; 84550; 85025; 85610; 85730; 86141; 87040; 87070; 87088; 87205; 89051; 89060; 93005; 96361; 96374

== ENCOUNTER 2018-10-10 18:05 | Inpatient (IN) | payer MEDICARE ==
[~2018-10-10] VITALS: Ht 180.3 cm; Wt 94.3 kg
[~2018-10-10 18:05] MED LIST changes: +ACET-77 PO; +LEVE750T5 PO
[2018-10-10 18:49] LABS: CLARITY,URINE CLEAR; COLOR,URINE YELLOW; GLUCOSE, URINE (UA) NEGATIVE (NEGATIVE); KETONES,URINE NEGATIVE (NEGATIVE); LEUKOCYTE ESTERASE ,URINE 3+ (NEGATIVE); NITRITE,URINE POSITIVE (NEGATIVE); PH,URINE 5 (5-9); PROTEIN,URINE 2+ (NEGATIVE); UROBILINOGEN,URINE 4 MG/DL (NORMAL)
[2018-10-10 18:52] LABS: BILIRUBIN,URINE 1+ (NEGATIVE)
--- NOTE | 2018-10-10 18:58 | Diagnostic Imaging Report ---
INDICATION: Chest and back pain. FINDINGS: Upright chest shows heart size to be upper normal. Vascularity is normal. The lungs are clear. There is no effusion or pneumothorax. IMPRESSION: No acute abnormality is seen with no change from 07/06/2018. Dictated by: Dictated on workstation # [id number]
[2018-10-10 19:07] LABS: BACTERIA,URINE MODERATE /HPF; WBC,URINE 25-50 /HPF
[2018-10-10 19:23] LABS: BASOPHILS % (AUTO) 0 % (0-10); EOSINOPHILS # (AUTO) 0.5 10^3/uL (0.0-0.3); EOSINOPHILS % (AUTO) 5 % (0-10); HEMATOCRIT 42 % (40-54); HEMOGLOBIN 13.3 G/DL (13.3-17.7); LYMPHOCYTES # (AUTO) 2.3 X 10^3 (1.0-4.0); LYMPHOCYTES % (AUTO) 22 % (12-44); MEAN CORPUSCULAR HEMOGLOBIN 31 PG (25-34); MEAN CORPUSCULAR HGB CONC 32 G/DL (32-36); MEAN CORPUSCULAR VOLUME 97 FL (80-99); MEAN PLATELET VOLUME 9.4 FL (7.4-10.4); MONOCYTES # (AUTO) 1.4 X 10^3 (0.0-1.0); MONOCYTES % (AUTO) 13 % (0-12); NEUTROPHILS # (AUTO) 6.3 X 10^3 (1.8-7.8); NEUTROPHILS % (AUTO) 60 % (42-75); PLATELET COUNT 266 10^3/uL (130-400); RED CELL DISTRIBUTION WIDTH 14.8 % (10.0-14.5); WHITE BLOOD COUNT 10.5 10^3/uL (4.3-11.0)
[2018-10-10] MEDS ORDERED: cefTRIAXone FOR IV USE 1,000 MG in WATER (STERILE) FOR INJECTION 10 ML IV ONE (19:30)
[2018-10-10] MEDS ORDERED: CIPROFLOXACIN 500 MG (CIPRO) TABLET PO ONE (19:30)
[2018-10-10] MEDS ORDERED: cefTRIAXone 1,000 MG/2.86 ml vial (IM ONLY) IM ONE (19:30)
[2018-10-10] MEDS ORDERED: LIDOCAINE 1% INJ 20 ML 20 ML VIAL INJ ONE (19:30)
[2018-10-10 19:37] LABS: ALANINE AMINOTRANSFERASE 13 U/L (0-55); ALBUMIN 3.8 GM/DL (3.2-4.5); ALKALINE PHOSPHATASE 85 U/L (40-136); BILIRUBIN,TOTAL 0.3 MG/DL (0.1-1.0); CALCIUM 8.9 MG/DL (8.5-10.1); CARBON DIOXIDE 21 MMOL/L (21-32); CREATINE KINASE 48 U/L (30-200); GLUCOSE 79 MG/DL (70-105)
[2018-10-10 20:17] LABS: BUN/CREATININE RATIO 19; CHLORIDE 109 MMOL/L (98-107); CREATININE SERUM 0.67 MG/DL (0.60-1.30); GFR ESTIMATED > 60; MAGNESIUM 1.9 MG/DL (1.6-2.4); POTASSIUM 4.6 MMOL/L (3.6-5.0); SODIUM 140 MMOL/L (135-145)
[2018-10-10] MEDS ORDERED: ASPIRIN 81 MG CHEW (CHILDREN'S ASA) PO ONE (21:15)
[2018-10-10] MEDS ORDERED: fentaNYL INJECTION 100 MCG/2 ML AMP IVP ONE ×2 (21:30→22:00)
[2018-10-10] MEDS ORDERED: meTOprolol TARTRATE 25 MG (LOPRESSOR) TABLET PO ONE (21:45)
[2018-10-10] MEDS ORDERED: ENOXAPARIN 100 MG/1 ML (LOVENOX) SYR SC ONE (22:00)
--- NOTE | 2018-10-10 22:08 | ED Chest Pain ---
General Chief Complaint: General Problems/Pain Stated Complaint: CP Nursing Triage Note: PT PRESENTS TO THE ED VIA EMS, STAFF ONSITE STATE THAT THE PT HASNT SLEPT IN TWO DAYS AND HAS BEEN SHOWING ALTERED MENTATION FROM HIS BASELINE. Nursing Sepsis Screen: No Definite Risk Source: patient Exam Limitations: no limitations History of Present Illness Date Seen by Provider: Oct 10, 2018 Time Seen by Provider: 18:04 Initial Comments This 78-year-old gentleman presents to the emergency room via EMS from the [facility] where he was noted to have agitation and complained of chest pain. He denies chest pain on arrival and states he had right shoulder pain and generalized soreness with moving. He has no other complaints at this time. Review of chart notes he does have a history of coronary artery disease and stenting. His last heart catheter was in 2015. He was recently admitted in [place] in the [facility] unit. Allergies and Home Medications Allergies Coded Allergies: No Known Drug Allergies (Unverified , 09/01/16) Home Medications Acetaminophen 500 Mg Tablet, 500 MG PO Q6HR PRN for PAIN-MILD Prescribed by: BRYANT WAGNER on 07/09/18 0919 Levetiracetam 750 Mg Tablet, 750 MG PO BID, (Reported) Losartan Potassium 100 Mg Tablet, 100 MG PO DAILY, (Reported) Phenytoin Sodium Extended 100 Mg Capsule, 200 MG PO BID, (Reported) TAKES 2 (100 MG) CAPSULES Potassium Chloride 20 Meq Tablet.er, 20 MEQ PO DAILY, (Reported) Propranolol HCl 40 Mg Tablet, 40 MG PO BID, (Reported) Quetiapine Fumarate 100 Mg Tablet, 100 MG PO HS, (Reported) Sertraline HCl 100 Mg Tablet, 100 MG PO DAILY, (Reported) Patient Home Medication List Home Medication List Reviewed: Yes Review of Systems Review of Systems Constitutional: no symptoms reported EENTM: No Symptoms Reported Respiratory: No Symptoms Reported Cardiovascular: See HPI Gastrointestinal: No Symptoms Reported Genitourinary: No Symptoms Reported Musculoskeletal: see HPI Skin: no symptoms reported Psychiatric/Neurological: See HPI Endocrine: No Symptoms Reported Hematologic/Lymphatic: No Symptoms Reported Past Dekfbzd-[id number]-[id number] Hx Patient Social History Alcohol Use: Denies Use Recreational Drug Use: No Smoking Status: Former Smoker Type Used: Cigarettes, Pipe Former Smoker, Quit: Feb 14, 2011 2nd Hand Smoke Exposure: No Recent Foreign Travel: No Contact w/Someone Who Travel: No Recent Infectious Disease Expo: No Recent Hopitalizations: No Immunizations Up To Date Tetanus Booster (TDap): Less than 5yrs PED Vaccines UTD: No Date of Pneumonia Vaccine: June 10, 2012 Date of Influenza Vaccine: Nov 09, 2016 Seasonal Allergies Seasonal Allergies: No Past Medical History Surgeries: Yes (BOOP-LUNG SURGERY, CATARACTS, DETACHED RETINA; HERNIA REPAIR ) Abdominal, Cardiac, Coronary Stent, Eye Surgery, Tonsillectomy Respiratory: Yes COPD Currently Using CPAP: No Currently Using BIPAP: No Cardiac: Yes Coronary Artery Disease, Hypertension Neurological: Yes (DEMENTIA WITH BEHAVIOR DISTURBANCE) Dementia, Parkinson's Disease, Seizure Disorder, Stroke Reproductive Disorders: No Sexually Transmitted Disease: No HIV/AIDS: No Genitourinary: Yes (urinary retention) Prostate Problems Gastrointestinal: Yes Abdominal Hernia, Diverticulosis, C-Diff, Hiatal Hernia Musculoskeletal: Yes (GENERALIZED WEAKNESS AND FALLS) Arthritis Endocrine: No HEENT: Yes (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) Cataract, Eye Injury Loss of Vision: Bilateral Hearing Impairment: Hard of Hearing Cancer: No Did You Recieve Any Treatments: No Psychosocial: Yes Depression Integumentary: Yes Psoriasis Blood Disorders: No Adverse Reaction/Blood Tranf: No Family Medical History Reviewed Nursing Family Hx Cardiovascular disease 19 FATHER, Onset:Unknown Cataracts 19 MOTHER, Onset:Unknown FH: stomach cancer 19 MOTHER, Onset:Unknown Glaucoma 19 MOTHER, Onset:Unknown CAD Over 55 Years Old Physical Exam Vital Signs Vital Signs - First Documented 10/10/18 18:07 Temp 97.1 Pulse 67 Resp 20 B/P (MAP) 143/86 (105) Pulse Ox 97 O2 Delivery Room Air Capillary Refill : Less Than 3 Seconds Height, Weight, BMI Height: 5'11.00" Weight: 221lbs. 6.0oz. 100.325940yk; 30.9 BMI Method:Stated General Appearance: No Apparent Distress, WD/WN HEENT: PERRL/EOMI, Normal ENT Inspection Neck: Normal Inspection Respiratory: Lungs Clear, Normal Breath Sounds, No Accessory Muscle Use, No Respiratory Distress Cardiovascular: Regular Rate, Rhythm, No Edema, No Murmur Gastrointestinal: Normal Bowel Sounds, Non Tender, Soft Extremity: Normal Inspection, Non Tender, No Pedal Edema Neurologic/Psychiatric: Alert, Oriented x3, No Motor/Sensory Deficits, Normal Mood/Affect, general teller II-XII Norm as Tested Skin: Normal Color, Warm/Dry Progress/Results/Core Measures Results/Orders Lab Results Laboratory Tests Test 10/10/18 18:40 10/10/18 19:00 Range/Units Urine Color YELLOW Urine Clarity CLEAR Urine pH 5 5-9 Urine Specific [place] 1.020 1.016-1.022 Urine Protein 2+ H NEGATIVE Urine Glucose (UA) NEGATIVE NEGATIVE Urine Ketones NEGATIVE NEGATIVE Urine Nitrite POSITIVE H NEGATIVE Urine Bilirubin 1+ H NEGATIVE Urine Urobilinogen 4 H NORMAL MG/DL Urine Leukocyte Esterase 3+ H NEGATIVE Urine RBC (Auto) 4+ H NEGATIVE Urine RBC 5-10 H /HPF Urine WBC 25-50 H /HPF Urine Squamous Epithelial Cells NONE /HPF Urine Crystals NONE /LPF Urine Bacteria MODERATE H /HPF Urine Casts NONE /LPF Urine Mucus NEGATIVE /LPF Urine Culture Indicated YES White Blood Count 10.5 4.3-11.0 10^3/uL Red Blood Count 4.32 L 4.35-5.85 10^6/uL Hemoglobin 13.3 13.3-17.7 G/DL Hematocrit 42 40-54 % Mean Corpuscular Volume 97 80-99 FL Mean Corpuscular Hemoglobin 31 25-34 PG Mean Corpuscular Hemoglobin Concent 32 32-36 G/DL Red Cell Distribution Width 14.8 H 10.0-14.5 % Platelet Count 266 130-400 10^3/uL Mean Platelet Volume 9.4 7.4-10.4 FL Neutrophils (%) (Auto) 60 42-75 % Lymphocytes (%) (Auto) 22 12-44 % Monocytes (%) (Auto) 13 H 0-12 % Eosinophils (%) (Auto) 5 0-10 % Basophils (%) (Auto) 0 0-10 % Neutrophils # (Auto) 6.3 1.8-7.8 X 10^3 Lymphocytes # (Auto) 2.3 1.0-4.0 X 10^3 Monocytes # (Auto) 1.4 H 0.0-1.0 X 10^3 Eosinophils # (Auto) 0.5 H 0.0-0.3 10^3/uL Basophils # (Auto) 0.0 0.0-0.1 10^3/uL Sodium Level 140 135-145 MMOL/L Potassium Level 4.6 3.6-5.0 MMOL/L Chloride Level 109 H 98-107 MMOL/L Carbon Dioxide Level 21 21-32 MMOL/L Anion Gap 10 5-14 MMOL/L Blood Urea Nitrogen 13 7-18 MG/DL Creatinine 0.67 0.60-1.30 MG/DL Estimat Glomerular Filtration Rate > 60 BUN/Creatinine Ratio 19 Glucose Level 79 70-105 MG/DL Calcium Level 8.9 8.5-10.1 MG/DL Corrected Calcium 9.1 8.5-10.1 MG/DL Magnesium Level 1.9 1.6-2.4 MG/DL Total Bilirubin 0.3 0.1-1.0 MG/DL Aspartate Amino Transf (AST/SGOT) 13 5-34 U/L Alanine Aminotransferase (ALT/SGPT) 13 0-55 U/L Alkaline Phosphatase 85 40-136 U/L Total Creatine Kinase 48 30-200 U/L Troponin I 0.076 H <0.028 NG/ML Total Protein 7.0 6.4-8.2 GM/DL Albumin 3.8 3.2-4.5 GM/DL Valproic Acid (Depakene) Level 48.9 L 50.0-100.0 UG/ML My Orders Orders - JOEL DU MD Cbc With Automated Diff (10/10/18 18:12) Comprehensive Metabolic Panel (10/10/18 18:12) Creatine Kinase (10/10/18 18:12) Magnesium (10/10/18 18:12) Ua Culture If Indicated (10/10/18 18:12) Troponin I (10/10/18 18:12) Ed Iv/Invasive Line Start (10/10/18 18:12) Chest 1 View, Ap/Pa Only (10/10/18 18:12) Ekg Tracing (10/10/18 18:12) Bladder Scan (10/10/18 18:12) Monitor-Rhythm Ecg Trace Only (10/10/18 18:12) Urine Culture (10/10/18 18:40) Ceftriaxone For Iv Use (Rocephin For I (10/10/18 19:30) Ciprofloxacin Tablet (Cipro Tablet) (10/10/18 19:30) Valproic Acid (10/10/18 19:22) Dilantin (Phenytoin) (10/10/18 19:22) Ceftriaxone For Im Use (Rocephin For Im (10/10/18 19:30) Lidocaine 1% Inj 20 Ml (Xylocaine 1% Inj (10/10/18 19:30) Troponin I (10/10/18 21:10) Ekg Tracing (10/10/18 21:10) Aspirin Chewable Tablet (Baby Aspirin Ch (10/10/18 21:15) Fentanyl Injection (Sublimaze Injection (10/10/18 21:30) Medications Given in ED Current Medications Medications Dose Ordered Sig/Destiny Route Start Time Stop Time Status Last Admin Dose Admin Aspirin 324 mg ONCE ONCE PO 10/10/18 21:15 10/10/18 21:16 DC 10/10/18 21:58 324 MG Ceftriaxone Sodium 1,000 mg ONCE ONCE IM 10/10/18 19:30 10/10/18 19:31 DC 10/10/18 20:20 1,000 MG Ciprofloxacin 500 mg ONCE ONCE PO 10/10/18 19:30 10/10/18 19:31 DC 10/10/18 20:17 500 MG Fentanyl Citrate 25 mcg ONCE ONCE IVP 10/10/18 21:30 10/10/18 21:31 DC 10/10/18 22:00 25 MCG Lidocaine HCl 2.1 ml ONCE ONCE INJ 10/10/18 19:30 10/10/18 19:31 DC 10/10/18 20:20 2.1 ML Vital Signs/I&O 10/10/18 18:07 Temp 97.1 Pulse 67 Resp 20 B/P (MAP) 143/86 (105) Pulse Ox 97 O2 Delivery Room Air Blood Pressure Mean: 105 Progress Progress Note : Progress Note Patient had no further chest pain. He was overall feeling improved. Urinary tract infection was identified. He was given Rocephin and an oral dose of Cipro in anticipation of discharging him on Cipro. Cipro was selected after reviewing prior cultures. After admission for elevated troponin was determined, I elected to change him to cefepime. Troponin was elevated but not critical. In the context of his brief episode of chest pain and history of coronary artery disease, admission is warranted. Case was discussed with Dr. Moya who requested Lovenox and Lopressor. Patient was also given aspirin. Case was also discussed with Dr. Sandra who is agreeable to admission. She requested ample medication coverage for his agitation, pain and anxiety. Patient's back pain was treated with fentanyl while in the ER. Patient was screened for urinary retention with a bladder scan while in the ER. His post void residual was minimal. Initial ECG Impression Date: Oct 10, 2018 Initial ECG Impression Time: 18:15 Initial ECG Rate: 65 Initial ECG Rhythm: Normal Sinus Comment Normal sinus rhythm with no ST elevation or depression. No significant changes in intervals or axis deviation. EKG : EKG Time: 22:09 Rate: 74 Rhythm: Normal Sinus ECG Impression: Normal Comment Normal sinus rhythm with no ST elevation or depression. No significant abnormal intervals or axis deviation. No significant change from prior. Diagnostic Imaging Diagonstic Imaging: Xray Plain Films/CT/US/NM/MRI: chest Comments Chest x-ray viewed by me and report reviewed. See report below: NAME: MIKEL SELF MED REC#: [id number] PT STATUS: REG ER : 1940 PHYSICIAN: JOEL DU MD ADMIT DATE: 10/10/18/ER Signed Date of Exam: 10/10/18 CHEST 1 VIEW, AP/PA ONLY INDICATION: Chest and back pain. FINDINGS: Upright chest shows heart size to be upper normal. Vascularity is normal. The lungs are clear. There is no effusion or pneumothorax. IMPRESSION: No acute abnormality is seen with no change from 07/06/2018. Dictated by: Dictated on workstation # [id number] Dict: 10/10/181854 Trans: 10/10/181907 Interpreted by: JAIRON RUSSELL MD Electronically signed by: JAIRON RUSSELL MD 10/10/181907 Departure Communication (Admissions) Time/Spoke to Admitting Phy: 21:30 Dr. Sandra Time/Spoke to Consulting Phy: 21:25 Dr. Moya Impression Primary Impression: Elevated troponin Additional Impressions: Chest pain Qualified Codes: R07.9 - Chest pain, unspecified Urinary tract infection Qualified Codes: N39.0 - Urinary tract infection, site not specified Agitation Lower back pain Qualified Codes: M54.5 - Low back pain Disposition: ADMITTED INPATIENT Condition: Improved Admissions Decision to Admit Reason: Admit from ER (General) Decision to Admit/Date: Oct 10, 2018 Time/Decision to Admit Time: 21:25 Departure-Patient Inst. Referrals: BRYANT WAGNER MD (PCP/Family) Primary Care Physician Copy Copies To 1: BRYANT WAGNER MD, JOSHUA T MD Oct 10, 2018 22:08
[2018-10-10 23:00] VITALS: BP 109/87
[2018-10-10] MEDS ORDERED: NITROGLYCERIN 0.4 MG SL TABS BTL 25'S SL PRN (23:15)
[2018-10-10 23:34] VITALS: BP 107/78
[2018-10-11] VITALS: BP 120/76
[2018-10-11] MEDS: fentaNYL INJECTION 100 MCG/2 ML AMP IV PRN ×6 (00:05→23:37)
[2018-10-11] MEDS: LORazepam INJ 2 MG/ML (ATIVAN) VIAL IV PRN ×2 (02:55→23:37)
[2018-10-11 04:00] VITALS: BP 116/95
[2018-10-11 04:01] LABS: BASOPHILS % (AUTO) 0 % (0-10); EOSINOPHILS # (AUTO) 0.4 10^3/uL (0.0-0.3); EOSINOPHILS % (AUTO) 4 % (0-10); HEMATOCRIT 40 % (40-54); HEMOGLOBIN 12.5 G/DL (13.3-17.7); LYMPHOCYTES # (AUTO) 2.4 X 10^3 (1.0-4.0); LYMPHOCYTES % (AUTO) 26 % (12-44); MEAN CORPUSCULAR HEMOGLOBIN 30 PG (25-34); MEAN CORPUSCULAR HGB CONC 31 G/DL (32-36); MEAN CORPUSCULAR VOLUME 96 FL (80-99); MEAN PLATELET VOLUME 9.4 FL (7.4-10.4); MONOCYTES # (AUTO) 1.3 X 10^3 (0.0-1.0); MONOCYTES % (AUTO) 13 % (0-12); NEUTROPHILS # (AUTO) 5.4 X 10^3 (1.8-7.8); NEUTROPHILS % (AUTO) 57 % (42-75); PLATELET COUNT 311 10^3/uL (130-400); RED CELL DISTRIBUTION WIDTH 14.9 % (10.0-14.5); WHITE BLOOD COUNT 9.5 10^3/uL (4.3-11.0)
[2018-10-11 04:26] LABS: BUN/CREATININE RATIO 16; CALCIUM 8.6 MG/DL (8.5-10.1); CARBON DIOXIDE 24 MMOL/L (21-32); CHLORIDE 107 MMOL/L (98-107); CHOLESTEROL 161 MG/DL (< 200); CREATININE SERUM 0.67 MG/DL (0.60-1.30); GFR ESTIMATED > 60; GLUCOSE 77 MG/DL (70-105); HDL CHOLESTEROL 25 MG/DL (40-60); POTASSIUM 4.4 MMOL/L (3.6-5.0); SODIUM 140 MMOL/L (135-145); TRIGLYCERIDES 109 MG/DL (<150); VLDL CHOLESTEROL 22 MG/DL (5-40)
[2018-10-11 08:00] VITALS: BP 128/90
[2018-10-11] MEDS: CEFEPIME 2,000 MG/SWFI 20 ML IV PUSH IV SCH ×4 (08:25→20:05)
[2018-10-11] MEDS: meTOprolol TARTRATE 25 MG (LOPRESSOR) TABLET PO SCH ×2 (08:25→20:05)
[2018-10-11] MEDS: ASPIRIN E.C. 81 MG (ECOTRIN) TAB PO SCH (08:25)
[2018-10-11] MEDS ORDERED: ENOXAPARIN 100 MG/1 ML (LOVENOX) SYR SC SCH (09:00)
--- NOTE | 2018-10-11 09:01 | Consultation-Cardiology ---
HPI-Cardiology Cardiology Consultation Date of Consultation 10/11/18 Date of Admission Time Seen by Provider: 08:59 Indication: Chest pain HPI 78 years old gentleman with history of coronary artery disease, hypertension and hyperlipidemia brought to the emergency room for agitation and chest pain. Had slight elevation in troponin. Currently denied any active chest pain. No pal pitation. No syncope or near syncopal episodes. No claudications. Patient is unable to provide full history. No fever or chills. Currently asking to get out of bed. Having generalized body ache, knee pain and back pain. Home Medications & Allergies Allergies: Coded Allergies: No Known Drug Allergies (Unverified , 09/01/16) Home Medication List Reviewed: Yes RDR-Crznjn-Vcryhu Hx Patient Social History Alcohol Use: Denies Use Recreational Drug Use: No Smoking Status: Former Smoker Former smoker/When Quit: Feb 14, 2011 Type Used: Cigarettes, Pipe 2nd Hand Smoke Exposure: No Recent Foreign Travel: No Recent Infectious Disease Expo: No Recent Hopitalizations: No Physical Abuse Screen: No Sexual Abuse: No Immunizations Up To Date Tetanus Booster (TDap): Less than 5yrs Date of Pneumonia Vaccine: Oct 10, 2014 Date of Influenza Vaccine: Nov 09, 2016 Past Medical History Discussed below Family Medical History Significant Family History: CAD Over 55 Years Old Family History: Cardiovascular disease 19 FATHER, Onset:Unknown Cataracts 19 MOTHER, Onset:Unknown FH: stomach cancer 19 MOTHER, Onset:Unknown Glaucoma 19 MOTHER, Onset:Unknown Review of Systems-General Review of Systems Constitutional: see HPI, malaise, weakness EENTM: see HPI Respiratory: see HPI; No cough; dyspnea on exertion; No hemoptysis, No orthopnea, No phlegm, No short of breath, No stridor, No wheezing, No other Cardiovascular: see HPI, chest pain, edema; No Hx of Intervention, No palpitations, No syncope, No vascular heart diseas, No other Gastrointestinal: see HPI Musculoskeletal: see HPI, back pain, joint pain, muscle stiffness, muscle weakness Skin: see HPI Psychiatric/Neurological: See HPI, Seizure Reviewed Test Results Reviewed Test Results Lab Laboratory Tests Test 10/10/18 18:40 10/10/18 19:00 10/11/18 03:25 Range/Units Urine Color YELLOW Urine Clarity CLEAR Urine pH 5 5-9 Urine Specific [place] 1.020 1.016-1.022 Urine Protein 2+ H NEGATIVE Urine Glucose (UA) NEGATIVE NEGATIVE Urine Ketones NEGATIVE NEGATIVE Urine Nitrite POSITIVE H NEGATIVE Urine Bilirubin 1+ H NEGATIVE Urine Urobilinogen 4 H NORMAL MG/DL Urine Leukocyte Esterase 3+ H NEGATIVE Urine RBC (Auto) 4+ H NEGATIVE Urine RBC 5-10 H /HPF Urine WBC 25-50 H /HPF Urine Squamous Epithelial Cells NONE /HPF Urine Crystals NONE /LPF Urine Bacteria MODERATE H /HPF Urine Casts NONE /LPF Urine Mucus NEGATIVE /LPF Urine Culture Indicated YES White Blood Count 10.5 9.5 4.3-11.0 10^3/uL Red Blood Count 4.32 L 4.14 L 4.35-5.85 10^6/uL Hemoglobin 13.3 12.5 L 13.3-17.7 G/DL Hematocrit 42 40 40-54 % Mean Corpuscular Volume 97 96 80-99 FL Mean Corpuscular Hemoglobin 31 30 25-34 PG Mean Corpuscular Hemoglobin Concent 32 31 L 32-36 G/DL Red Cell Distribution Width 14.8 H 14.9 H 10.0-14.5 % Platelet Count 266 311 130-400 10^3/uL Mean Platelet Volume 9.4 9.4 7.4-10.4 FL Neutrophils (%) (Auto) 60 57 42-75 % Lymphocytes (%) (Auto) 22 26 12-44 % Monocytes (%) (Auto) 13 H 13 H 0-12 % Eosinophils (%) (Auto) 5 4 0-10 % Basophils (%) (Auto) 0 0 0-10 % Neutrophils # (Auto) 6.3 5.4 1.8-7.8 X 10^3 Lymphocytes # (Auto) 2.3 2.4 1.0-4.0 X 10^3 Monocytes # (Auto) 1.4 H 1.3 H 0.0-1.0 X 10^3 Eosinophils # (Auto) 0.5 H 0.4 H 0.0-0.3 10^3/uL Basophils # (Auto) 0.0 0.0 0.0-0.1 10^3/uL Sodium Level 140 140 135-145 MMOL/L Potassium Level 4.6 4.4 3.6-5.0 MMOL/L Chloride Level 109 H 107 98-107 MMOL/L Carbon Dioxide Level 21 24 21-32 MMOL/L Anion Gap 10 9 5-14 MMOL/L Blood Urea Nitrogen 13 11 7-18 MG/DL Creatinine 0.67 0.67 0.60-1.30 MG/DL Estimat Glomerular Filtration Rate > 60 > 60 BUN/Creatinine Ratio 19 16 Glucose Level 79 77 70-105 MG/DL Calcium Level 8.9 8.6 8.5-10.1 MG/DL Corrected Calcium 9.1 8.5-10.1 MG/DL Magnesium Level 1.9 1.6-2.4 MG/DL Total Bilirubin 0.3 0.1-1.0 MG/DL Aspartate Amino Transf (AST/SGOT) 13 5-34 U/L Alanine Aminotransferase (ALT/SGPT) 13 0-55 U/L Alkaline Phosphatase 85 40-136 U/L Total Creatine Kinase 48 30-200 U/L Troponin I 0.076 H 0.046 H <0.028 NG/ML Total Protein 7.0 6.4-8.2 GM/DL Albumin 3.8 3.2-4.5 GM/DL Valproic Acid (Depakene) Level 48.9 L 50.0-100.0 UG/ML Triglycerides Level 109 <150 MG/DL Cholesterol Level 161 < 200 MG/DL LDL Cholesterol Direct 122 1-129 MG/DL VLDL Cholesterol 22 5-40 MG/DL HDL Cholesterol 25 L 40-60 MG/DL Physical Exam Physical Exam Vital Signs Vital Signs - First Documented 10/10/18 10/10/18 18:07 23:34 Temp 97.1 Pulse 67 Resp 20 B/P (MAP) 143/86 (105) Pulse Ox 97 O2 Delivery Room Air O2 Flow Rate 0.00 Capillary Refill : Less Than 3 Seconds Height, Weight, BMI Height: 5'11.00" Weight: 206lbs. 5.0oz. 93.687628sw; 28.9 BMI Method:Stated General Appearance: No Apparent Distress, WD/WN HEENT: PERRL/EOMI, Normal ENT Inspection Neck: Normal Inspection Respiratory: Lungs Clear, Normal Breath Sounds, No Accessory Muscle Use, No Re spiratory Distress Cardiovascular: Regular Rate, Rhythm, No Edema, Systolic Murmur Gastrointestinal: Normal Bowel Sounds, Non Tender, Soft Extremity: Normal Inspection, Non Tender, No Pedal Edema Neurologic/Psychiatric: Alert, Oriented x3, Normal Mood/Affect, Abnormal Gait Skin: Normal Color, Warm/Dry A/P-Cardiology Admission Diagnosis Acute non-ST elevation myocardial infarction Coronary artery disease Urinary tract infection Hypertension Assessment/Plan Acute non-ST elevation myocardial infarction, known to have extensive coronary artery disease treated conservatively. Continue with medical therapy. Start aspirin and Plavix and monitor tolerance and response. Urinary tract infection, receiving antibiotics, managed by primary care physician Coronary artery disease, history of stent done in December [address] Camarillo, cardiac catheterization was done in February 2015 showed total occlusion of the dominant right coronary artery proximally getting collaterals from the left system, severe disease at the mid second diagonal artery, very small artery not amendable to intervention, patent stent in the proximal LAD with moderate disease in the mid LAD, moderate disease in the mid circumflex artery, prominent aorta, treated conservatively, I still recommend conservative management at this time, his elevation in troponin could be due to the occluded right coronary artery. No acute EKG changes were noted. CVA, patient lost vision in 2010 after a trauma, regained most of his vision but lost depth perception, using a cane. Carotid stenosis, ultrasound was done in 2015 showing moderate bilateral disease nonobstructive disease, continue to monitor Peripheral arterial disease, history of 70 percent stenosis of the right common iliac artery. His exercise ability is limited does not have claudication. 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 Abnormal chest x-ray, patient is scheduled to see Dr. Ac Cornejo cholesterol is really Hypertension, restart home medication monitor blood pressure Hyperlipidemia, monitor lipids History of seizure, epilepsy, seen by a neurologist in the past. History of tobaccoism, patient stopped smoking in 2010 Dementia. Clinical Quality Measures DVT/VTE Risk/Contraindication: Risk Factor Score Per Nursin RFS Level Per Nursing on Admit: 4+=Very High KESHAV DERAS MD Oct 11, 2018 09:01
--- NOTE | 2018-10-11 09:46 | History & Physical-Hospitalist ---
History of Present Illness Date Seen 10/11/18 Time Seen by a Provider: 10:00 Attending Physician Lindsay Sandra Chad C MD Referring Physician Date of Admission Oct 10, 2018 at 21:30 Home Medications & Allergies Home Medications Reviewed patient Home Medication Reconciliation performed by pharmacy medication reconciliations sewer and drain technician and/or nursing. Patients Allergies have been reviewed. Allergies Allergies Coded Allergies No Known Drug Allergies (Unverified09/01/16) Past Nuaqrea-Heulfm-Altehd Hx Patient Social History Alcohol Use: Denies Use Number of Drinks Today: 0 Recreational Drug Use: No Smoking Status: Former Smoker Former Smoker, Quit: Feb 14, 2011 Type Used: Cigarettes, Pipe 2nd Hand Smoke Exposure: No Physical Abuse Screen: No Sexual Abuse: No Recent Foreign Travel: No Contact w/other who traveled: No Recent Hopitalizations: No Recent Infectious Disease Expo: No Immunizations Up To Date Tetanus Booster (TDap): Less than 5yrs Pediatric: No Date of Pneumonia Vaccine: Oct 10, 2014 Date of Influenza Vaccine: Nov 09, 2016 Seasonal Allergies Seasonal Allergies: No Past Medical History Surgeries: Abdominal, Cardiac, Coronary Stent, Eye Surgery, Tonsillectomy Respiratory: Pneumonia Currently Using CPAP: No Currently Using BIPAP: No Cardiac: Coronary Artery Disease, Hypertension Neurological: Dementia, Parkinson's Disease, Seizure Disorder, Stroke Reproductive: No Sexually Transmitted Disease: No HIV/AIDS: No Genitourinary: Prostate Problems Gastrointestinal: Abdominal Hernia, Diverticulosis, C-Diff, Hiatal Hernia Musculoskeletal: Osteoporosis HEENT: Cataract, Eye Injury Loss of Vision: Bilateral Hearing Impairment: Hard of Hearing Did You Recieve Any Treatments: No Psychosocial: Depression Skin/Integumentary: Psoriasis History of Blood Disorders: No Adverse Reaction to Blood Santana: No Family History Reviewed Nursing Family Hx Cardiovascular disease 19 FATHER, Onset:Unknown Cataracts 19 MOTHER, Onset:Unknown FH: stomach cancer 19 MOTHER, Onset:Unknown Glaucoma 19 MOTHER, Onset:Unknown CAD Over 55 Years Old Physical Exam Physical Exam Vital Signs Vital Signs - First Documented 10/10/18 10/10/18 18:07 23:34 Temp 97.1 Pulse 67 Resp 20 B/P (MAP) 143/86 (105) Pulse Ox 97 O2 Delivery Room Air O2 Flow Rate 0.00 Capillary Refill : Less Than 3 Seconds Height, Weight, BMI Height: 5'11.00" Weight: 206lbs. 5.0oz. 93.182953hh; 28.9 BMI Method:Stated Results Results/Procedures Labs Laboratory Tests 10/10/18 19:00 10/11/18 03:25 Patient resulted labs reviewed. Clinical Quality Measures DVT/VTE Risk/Contraindication: Risk Factor Score Per Nursin RFS Level Per Nursing on Admit: 4+=Very High LINDSAY SANDRA DO Oct 11, 2018 09:46
[2018-10-11] MEDS: PANTOPRAZOLE 40 MG (PROTONIX) TAB PO SCH (09:49)
[2018-10-11] MEDS: CLOPIDOGREL 75 MG (PLAVIX) TABLET PO SCH (09:49)
[2018-10-11] MEDS: LOSARTAN 100 MG (COZAAR) TABLET PO SCH (09:49)
[2018-10-11] MEDS: morphine INJ 4 MG/ML 1 ML (VIAL/SYRINGE) IV PRN ×2 (09:49→20:09)
--- NOTE | 2018-10-11 11:42 | Short Stay Summary-Hospitalist ---
History of Present Illness HPI/Chief Complaint Chief complaint: Vague chest pain complaints History of present illness: This is a 78-year-old white male with a past medical history of severe dementia requiring jail placement and recent discharge from the [facility] psych unit at [facility] with me of Dr. Mckeon who presents to the ER with vague chest pain and was found to have slightly elevated troponin but cardiology evaluated him today after closely monitoring him through the night did not have any evidence of acute coronary syndrome but he has end- stage coronary arteries and unable to have any type of intervention especially given the fact of his end-stage dementia. Patient is calling out for help like he does most of the time and denies any significant pain. Source: patient Exam Limitations: other (dementia) Date Seen 10/11/18 Time Seen by a Provider: 11:30 Attending Physician Lindsay Sandra DO PCP Oliver Mckeon MD Referring Physician Date of Admission Oct 10, 2018 at 21:30 Home Medications & Allergies Home Medications Reviewed patient Home Medication Reconciliation performed by pharmacy medication reconciliations emergency medical technician/driver and/or nursing. Patients Allergies have been reviewed. Allergies Allergies Coded Allergies No Known Drug Allergies (Unverified09/01/16) Past Hiyvvzu-Xnrywy-Miizcg Hx Past Med/Social Hx: Reviewed Nursing Past Med/Soc Hx, Reviewed and Corrections made Patient Social History Marrital Status: Employed/Student: retired Alcohol Use: Denies Use Number of Drinks Today: 0 Recreational Drug Use: No Smoking Status: Former Smoker Former Smoker, Quit: Feb 14, 2011 Type Used: Cigarettes, Pipe 2nd Hand Smoke Exposure: No Physical Abuse Screen: No Sexual Abuse: No Recent Foreign Travel: No Contact w/other who traveled: No Recent Hopitalizations: No Recent Infectious Disease Expo: No Immunizations Up To Date Tetanus Booster (TDap): Less than 5yrs Pediatric: No Date of Pneumonia Vaccine: Oct 10, 2014 Date of Influenza Vaccine: Nov 09, 2016 Seasonal Allergies Seasonal Allergies: No Past Medical History Surgeries: Abdominal, Cardiac, Coronary Stent, Eye Surgery, Tonsillectomy Respiratory: Pneumonia Currently Using CPAP: No Currently Using BIPAP: No Cardiac: Coronary Artery Disease, Hypertension Neurological: Dementia, Parkinson's Disease, Seizure Disorder, Stroke Reproductive: No Sexually Transmitted Disease: No HIV/AIDS: No Genitourinary: Prostate Problems Gastrointestinal: Abdominal Hernia, Diverticulosis, C-Diff, Hiatal Hernia Musculoskeletal: Osteoporosis HEENT: Cataract, Eye Injury Loss of Vision: Bilateral Hearing Impairment: Hard of Hearing Did You Recieve Any Treatments: No Psychosocial: Depression Skin/Integumentary: Psoriasis History of Blood Disorders: No Adverse Reaction to Blood Santana: No Family History Reviewed Nursing Family Hx Cardiovascular disease 19 FATHER, Onset:Unknown Cataracts 19 MOTHER, Onset:Unknown FH: stomach cancer 19 MOTHER, Onset:Unknown Glaucoma 19 MOTHER, Onset:Unknown CAD Over 55 Years Old Review of Systems Constitutional: see HPI Physical Exam Physical Exam Vital Signs Vital Signs - First Documented 10/10/18 10/10/18 18:07 23:34 Temp 97.1 Pulse 67 Resp 20 B/P (MAP) 143/86 (105) Pulse Ox 97 O2 Delivery Room Air O2 Flow Rate 0.00 Capillary Refill : Less Than 3 Seconds Height, Weight, BMI Height: 5'11.00" Weight: 206lbs. 5.0oz. 93.290454tz; 28.9 BMI Method:Stated General Appearance: No Apparent Distress, WD/WN, Chronically ill HEENT: PERRL/EOMI, Normal ENT Inspection Neck: Normal Inspection Respiratory: Lungs Clear, Normal Breath Sounds, No Accessory Muscle Use, No Respiratory Distress Cardiovascular: Regular Rate, Rhythm, No Edema, Systolic Murmur Gastrointestinal: Normal Bowel Sounds, Non Tender, Soft Extremity: Normal Inspection, Non Tender, No Pedal Edema Neurologic/Psychiatric: Alert, Oriented x3, Normal Mood/Affect, Abnormal Gait Skin: Normal Color, Warm/Dry Results Results/Procedures Labs Laboratory Tests 10/10/18 19:00 10/11/18 03:25 Patient resulted labs reviewed. Short Stay Diagnosis Discharge Diagnosis-Short Stay Admission Diagnosis Assessment: Vague chest pain End-stage dementia End-stage coronary artery disease unable to modify or undergo any interventions Acute on chronic UTI Urinary retention managed by urology Final Discharge Diagnosis Assessment: Vague chest pain End-stage dementia End-stage coronary artery disease unable to modify or undergo any interventions Acute on chronic UTI Urinary retention managed by urology Conclusion Plan Plan: Discharge to the jail Empiric antibiotics for UTI acute on chronic Resume all meds Diagnosis/Problems Diagnosis/Problems (1) Chest wall pain Status: Acute (2) Elevated troponin Status: Acute (3) Agitation Status: Acute (4) Urinary tract infection Status: Acute Qualifiers: Qualified Codes: N39.0 - Urinary tract infection, site not specified (5) Parkinson disease Status: Acute (6) History of CVA (cerebrovascular accident) Status: Acute (7) Dementia Status: Acute (8) Carotid artery disease Status: Acute Clinical Quality Measures DVT/VTE Risk/Contraindication: Risk Factor Score Per Nursin RFS Level Per Nursing on Admit: 4+=Very High LINDSAY SANDRA DO Oct 11, 2018 11:42
[2018-10-11] MEDS ORDERED: PANT40TA3 PO (11:44)
[2018-10-11] MEDS ORDERED: METO-333 PO (11:44)
[2018-10-11] MEDS ORDERED: CLOP75TA28 PO (11:44)
[2018-10-11] MEDS ORDERED: ASPI-983 PO (11:44)
[2018-10-11] MEDS ORDERED: CEFD300C3 PO (11:46)
[2018-10-11 12:00] VITALS: BP 116/68
[2018-10-11] MEDS: HALOPERIDOL 5 MG/ML (HALDOL) AMP IM PRN ×2 (14:41→21:39)
[2018-10-11 16:00] VITALS: BP 110/75
[2018-10-11 20:00] VITALS: BP 150/96
--- NOTE | 2018-10-11 23:30 | NUR ---
Patient attempt to use urinal several times beginning of shift with no results. Sat on side of the bed and was very weak. Bladder scan performed and Dr. Chinchilla called. Straight cath ordered. Patient tolerated well with 475 output. Will continue to monitor.
[2018-10-12] VITALS: BP 117/93
[2018-10-12] MEDS: HALOPERIDOL 5 MG/ML (HALDOL) AMP IM PRN ×3 (02:27→20:13)
[2018-10-12] MEDS: fentaNYL INJECTION 100 MCG/2 ML AMP IV PRN ×3 (02:53→20:14)
[2018-10-12 04:00] VITALS: BP 137/98
[2018-10-12] MEDS: LORazepam INJ 2 MG/ML (ATIVAN) VIAL IV PRN (04:00)
--- NOTE | 2018-10-12 07:49 | Cardiology Progress Note ---
Subjective Date Seen by Provider: Oct 12, 2018 Time Seen by Provider: 07:47 Subjective/Events-last exam Patient is confused and agitated, asking to go back to the senior living Review of Systems General: No Chills, No Night Sweats, No Fatigue, No Malaise, No Appetite, No Other HEENT: No Head Aches, No Visual Changes, No Eye Pain, No Ear Pain, No Dysphasia, No Sinus Congestion, No Post Nasal Drip, No Sore Throat, No Other Pulmonary: No Dyspnea, No Cough, No Pleuritic Chest Pain, No Other Cardiovascular: No: Chest Pain, Palpitations, Orthopnea, Paroxysmal Noc. Dyspnea, Edema, Lt Headedness, Other Objective-Cardiology Exam Last Set of Vital Signs Vital Signs 10/10/18 10/11/18 10/12/18 23:34 19:45 04:00 Temp 99.5 Pulse 75 Resp 18 B/P (MAP) 137/98 (111) Pulse Ox 92 O2 Delivery Room Air O2 Flow Rate 0.00 Capillary Refill : Less Than 3 Seconds I&O Intake and Output 10/12/18 00:00 Intake Total 345 ml Output Total 500 ml Balance -155 ml Intake Oral 345 ml Output Urine Total 500 ml General: Alert, Mild Distress HEENT: Atraumatic, PERRLA Neck: Supple, No JVD Lungs: Clear to Auscultation, Normal Air Movement Heart: Regular Rate, Normal S1, Normal S2 Abdomen: Normal Bowel Sounds Extremities: No Clubbing, No Cyanosis Skin: No Rashes Neuro: Normal Speech A/P-Cardiology Admission Diagnosis Acute non-ST elevation myocardial infarction Coronary artery disease Urinary tract infection Hypertension Assessment/Plan Acute non-ST elevation myocardial infarction, known to have extensive coronary artery disease treated conservatively. Continue with medical therapy. Continue on aspirin and Plavix Urinary tract infection, receiving antibiotics, managed by primary care physician Coronary artery disease, history of stent done in December [address] Camarillo, cardiac catheterization was done in February 2015 showed total occlusion of the dominant right coronary artery proximally getting collaterals from the left system, severe disease at the mid second diagonal artery, very small artery not amendable to intervention, patent stent in the proximal LAD with moderate diseas e in the mid LAD, moderate disease in the mid circumflex artery, prominent aorta, treated conservatively, I still recommend conservative management at this time, his elevation in troponin could be due to the occluded right coronary artery. No acute EKG changes were noted. CVA, patient lost vision in 2010 after a trauma, regained most of his vision but lost depth perception, using a cane. Carotid stenosis, ultrasound was done in 2015 showing moderate bilateral disease nonobstructive disease, continue to monitor Peripheral arterial disease, history of 70 percent stenosis of the right common iliac artery. His exercise ability is limited does not have claudication. 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 Abnormal chest x-ray, patient is scheduled to see Dr. Ac Cornejo cholesterol is really Hypertension, restart home medication monitor blood pressure Hyperlipidemia, monitor lipids History of seizure, epilepsy, seen by a neurologist in the past. History of tobaccoism, patient stopped smoking in 2010 Dementia, confusion, agitation. Okay for discharge and follow-up as an outpatient from cardiology standpoint Clinical Quality Measures DVT/VTE Risk/Contraindication: Risk Factor Score Per Nursin RFS Level Per Nursing on Admit: 4+=Very High KESHAV DERAS MD Oct 12, 2018 07:49
[2018-10-12 08:00] VITALS: BP 142/93
[2018-10-12] MEDS: CEFEPIME 2,000 MG/SWFI 20 ML IV PUSH IV SCH ×2 (08:22)
[2018-10-12] MEDS: ASPIRIN E.C. 81 MG (ECOTRIN) TAB PO SCH (08:24)
[2018-10-12] MEDS: PANTOPRAZOLE 40 MG (PROTONIX) TAB PO SCH (08:24)
[2018-10-12] MEDS: meTOprolol TARTRATE 25 MG (LOPRESSOR) TABLET PO SCH ×2 (08:24→20:12)
[2018-10-12] MEDS: ENOXAPARIN 40 MG/0.4 ML (LOVENOX) SYR SQ SCH (08:24)
[2018-10-12] MEDS: CLOPIDOGREL 75 MG (PLAVIX) TABLET PO SCH (08:24)
[2018-10-12] MEDS: LOSARTAN 100 MG (COZAAR) TABLET PO SCH (08:24)
--- NOTE | 2018-10-12 11:18 | NUR ---
CONTACTED DR. WAGNER DUE TO HAVING TO STRAIGHT CATH PATIENT MULTIPLE TIMES THIS AM, PT IS HAVING RETENTION, URGENCY AND FREQUENCY. DR. WAGNER GAVE ORDER FOR INDWELLING MORA CATHETER.
[2018-10-12 12:00] VITALS: BP 123/79
[2018-10-12] MEDS ORDERED: CHOLESTYRAMINE 4 GM (QUESTRAN LITE, PREVALITE) PKT PO PRN (12:30)
--- NOTE | 2018-10-12 12:31 | Progress Note ---
Subjective Subjective Date Seen by Provider: Oct 12, 2018 Time Seen by Provider: 12:28 78 yo M who is grumpy and upset with staff. Staff has been attending to his needs but he continues to be upset which is what [facility] reports. A owens catheter was placed and 400cc was obtained; indication pt was requesting straight cath every 45min to 1 hour- due to urinary retention. Review of Systems General: No Chills, No Night Sweats, No Fatigue, No Malaise, No Appetite, No Other HEENT: No Head Aches, No Visual Changes, No Eye Pain, No Ear Pain, No Dysphasia, No Sinus Congestion, No Post Nasal Drip, No Sore Throat, No Other Pulmonary: No Dyspnea, No Cough, No Pleuritic Chest Pain, No Other Cardiovascular: No: Chest Pain, Palpitations, Orthopnea, Paroxysmal Noc. Dyspnea, Edema, Lt Headedness, Other Objective Exam Vital Signs Vital Signs Date Time Temp Pulse Resp B/P (MAP) Pulse Ox O2 Delivery O2 Flow Rate FiO2 10/12/18 08:00 98.8 89 20 142/93 (109) 96 Room Air 10/12/18 07:00 94 10/12/18 04:00 92 Room Air 10/12/18 04:00 75 18 137/98 (111) Room Air 10/12/18 01:00 69 10/12/18 00:00 69 18 117/93 (101) 91 Room Air 10/12/18 00:00 92 Room Air 10/11/18 21:00 93 Room Air 10/11/18 20:00 85 14 150/96 (114) 91 Room Air 10/11/18 20:00 92 Room Air 10/11/18 19:45 99.5 10/11/18 19:00 84 10/11/18 16:00 99 Room Air 10/11/18 16:00 62 10 110/75 (87) 97 Room Air 10/11/18 15:45 98.2 10/11/18 13:00 60 I & O 10/12/18 07:00 Intake Total 150 ml Output Total 875 ml Balance -725 ml General Appearance: No Apparent Distress, WD/WN, Chronically ill HEENT: PERRL/EOMI, Normal ENT Inspection Neck: Normal Inspection Respiratory: Lungs Clear, Normal Breath Sounds, No Accessory Muscle Use, No Respiratory Distress Cardiovascular: Regular Rate, Rhythm, No Edema, Systolic Murmur Gastrointestinal: Normal Bowel Sounds, Non Tender, Soft Extremity: Normal Inspection, Non Tender, No Pedal Edema Neurologic/Psychiatric: Alert, Oriented x3, Normal Mood/Affect, Abnormal Gait Skin: Normal Color, Warm/Dry Results Lab Microbiology 10/10/18 Urine Culture - Final, Complete Staphylococcus aureus Assessment/Plan Assessment/Plan Assessment and Plan 10/12/18- Urine culture + MRSA- stopped cefepime; starting doxycycline Also starting po metronidazole as he has history of C.diff and usually develops C.diff when he is put on broad spectrum antibiotics. Also will start cholestyramine prn loose stools. Dispo: case management is working on placement. Problems: (1) Chest wall pain (2) Elevated troponin (3) Agitation (4) Urinary tract infection Qualifiers: Qualified Codes: N39.0 - Urinary tract infection, site not specified (5) Parkinson disease (6) History of CVA (cerebrovascular accident) (7) Dementia (8) Carotid artery disease (9) Urinary retention Clinical Quality Measures DVT/VTE Risk/Contraindication: Risk Factor Score Per Nursin RFS Level Per Nursing on Admit: 4+=Very High BRYANT WAGNER MD Oct 12, 2018 12:31
[2018-10-12] MEDS: metroNIDAZOLE 500 MG (FLAGYL) TAB PO SCH ×2 (13:37→20:12)
[2018-10-12 16:04] VITALS: BP 146/82
--- NOTE | 2018-10-12 17:20 | NUR ---
CM/SS, respond to consult. Patient was admitted from [facility]. He was reportedly discharged yesterday but [facility] would not accept back stating they could not meet his needs. This was a holiday and typewriters functional tester pursued alternate options starting today. PLAN: Patient has been accepted to [facility] tomorrow. He can enter skilled status based upon his recent inpatient stay at [facility] from 09/21/18 to 10/06/18. Patient historically presents as disgruntled on a fluctuating scale. His diagnoses include severe dementia, Parkinson's disease, and, per [facility], bipolar disorder and personality disorder as well as others. Difficult to consistently manage over any period of time, with physical sensations/issues compounding behavioral/mental health perceptions and reactions. Appreciate [facility] Director/Caridad working in great partnership seeking SNF and/or new behavioral health acceptance in conjunction with typewriters functional tester. Updated Unit RN and PCP of plan for tomorrow. Mel has updated spouse. CARE Assessment is current, copy requested from [facility].
[2018-10-12] MEDS: DOXYCYCLINE 100 MG (VIBRAMYCIN) TABLET PO SCH (18:54)
[2018-10-12 20:46] VITALS: BP 150/99
[2018-10-13] VITALS: BP 133/80
[2018-10-13] MEDS: LORazepam INJ 2 MG/ML (ATIVAN) VIAL IV PRN (00:01)
[2018-10-13] MEDS: HALOPERIDOL 5 MG/ML (HALDOL) AMP IM PRN (03:16)
[2018-10-13] MEDS: fentaNYL INJECTION 100 MCG/2 ML AMP IV PRN (03:17)
[2018-10-13 04:00] VITALS: BP 136/82
[2018-10-13] MEDS: DOXYCYCLINE 100 MG (VIBRAMYCIN) TABLET PO SCH (06:33)
[2018-10-13 08:00] VITALS: BP 148/62
[2018-10-13] MEDS: ASPIRIN E.C. 81 MG (ECOTRIN) TAB PO SCH (08:36)
[2018-10-13] MEDS: PANTOPRAZOLE 40 MG (PROTONIX) TAB PO SCH (08:36)
[2018-10-13] MEDS: CLOPIDOGREL 75 MG (PLAVIX) TABLET PO SCH (08:37)
[2018-10-13] MEDS: LOSARTAN 100 MG (COZAAR) TABLET PO SCH (08:37)
[2018-10-13] MEDS: metroNIDAZOLE 500 MG (FLAGYL) TAB PO SCH (08:37)
[2018-10-13] MEDS: ENOXAPARIN 40 MG/0.4 ML (LOVENOX) SYR SQ SCH (08:37)
[2018-10-13] MEDS: meTOprolol TARTRATE 25 MG (LOPRESSOR) TABLET PO SCH (08:37)
[2018-10-13] MEDS ORDERED: DOXY100T2 PO (09:04)
[2018-10-13] MEDS ORDERED: CHOL4PAC3 PO (09:04)
[2018-10-13] MEDS ORDERED: METR-145 PO (09:04)
--- NOTE | 2018-10-13 09:09 | Discharge Inst-Skilled Nursing ---
Discharge Inst-Skilled NF Reconcile Patient Problems Problems Reviewed?: Yes Chief Complaint Chief complaint: Vague chest pain complaints History of present illness: This is a 78-year-old white male with a past medical history of severe dementia requiring prison placement and recent discharge from the Viktoriya psych unit at [facility] with me of Dr. Wagner who presents to the ER with vague chest pain and was found to have slightly elevated troponin but cardiology evaluated him today after closely monitoring him through the night did not have any evidence of acute coronary syndrome but he has end- stage coronary arteries and unable to have any type of intervention especially given the fact of his end-stage dementia. Patient is calling out for help like he does most of the time and denies any significant pain. Patient Instructions Patient Problems: MRSA urinary tract infection dementia with behavioral/verbal disturbance Consult/Follow Up/Orders Follow Up Appt.: 1-2 weeks at [facility] Skilled NF Admit to: [facility] Certification (SNF) I certify that SNF services are required to be given on an inpatient basis because of the above named patient's need for assisted care on a continuing basis for the conditions(s) for which he/she was receiving inpatient hospital services prior to his/her transfer to the SNF. [facility] Facility Order: Nursing Services, Purchase Request Editor-Evaluate & Treat, Physical Therapy-Evaluate & Treat Oxygen Delivery Method: Nasal Cannula (nocturnal oxygen as needed to keep oxygen saturation >90) Oxygen Flow Rate L/min (Range): 2L Discharge Diet: Regular Diet New & Resume Previous Orders New & Resume Previous Orders Bladder retraining- Remove urinary catheter 10/14/18 13 more days of doxycycline- stop date 10/26/18 14 days of metronidazole to prevent C.diff stop date 10/27/18 cholestyramine as needed for loose stools. Oliver Wagner Oct 13, 2018 09:05 OLIVER WAGNER MD Oct 13, 2018 09:09
--- NOTE | 2018-10-13 09:13 | Discharge Summary ---
Diagnosis/Chief Complaint Date of Admission Oct 10, 2018 at 21:30 Date of Discharge Discharge Date: Oct 13, 2018 Admission Diagnosis Admission Diagnosis (1) Chest wall pain Status: Acute (2) Elevated troponin Status: Acute (3) Agitation Status: Acute (4) Urinary tract infection Status: Acute Qualifiers: Qualified Codes: N39.0 - Urinary tract infection, site not specified (5) Parkinson disease Status: Acute (6) History of CVA (cerebrovascular accident) Status: Acute (7) Dementia Status: Acute (8) Carotid artery disease Status: Acute Discharge Diagnosis MRSA urinary tract infection chest pain- resolved urinary retention dementia with behavioral/verbal disturbance Reason Hospital Visit Chief complaint: Vague chest pain complaints History of present illness: This is a 78-year-old white male with a past medical history of severe dementia requiring long term placement and recent discharge from the Vikt[facility] psych unit at [facility] with me of Dr. Wagner who presents to the ER with vague chest pain and was found to have slightly elevated troponin but cardiology evaluated him today after closely monitoring him through the night did not have any evidence of acute coronary syndrome but he has end- stage coronary arteries and unable to have any type of intervention especially given the fact of his end-stage dementia. Patient is calling out for help like he does most of the time and denies any significant pain. Discharge Summary Hospital Course Hospital Course 78 yo M admitted for chest pain- found to have MRSA UTI- He was stable for discharge 10/11/18 but difficulty was found in trying to find placement due to his dementia with behavioral/verbal rudeness. He will finish a course of doxycycline for his MRSA UTI and metronidazole to prevent C.diff infection. He will be admitted to [facility]. Continuing his home medications. Follow up with [facility] in 1 week. Labs Procedures None. Discharge Physical Examination Allergies: Coded Allergies: No Known Drug Allergies (Unverified , 09/01/16) Vitals & I&Os Vital Signs Date Time Temp Pulse Resp B/P (MAP) Pulse Ox O2 Delivery O2 Flow Rate FiO2 10/13/18 11:26 84 20 148/62 94 Room Air 10/13/18 08:00 97.0 General Appearance: Alert, Cooperative HEENT: Atraumatic Respiratory: Clear to Auscultation Cardiovascular: Regular Rate Abdominal: Soft Neuro: Strength at 5/5 X4 Ext Psych/Mental Status: Mental Status NL Discharge Home Medications Reviewed and agree with Discharge Medication list on patient's Discharge Instruction sheet Condition at Discharge stable, improved Instructions to Patient/Family Please see electronic discharge instructions given to patient. Clinical Quality Measures DVT/VTE Risk/Contraindication: Risk Factor Score Per Nursin RFS Level Per Nursing on Admit: 4+=Very High BRYANT WAGNER MD Oct 13, 2018 09:13
--- NOTE | 2018-10-13 10:05 | Cardiology Progress Note ---
Subjective Date Seen by Provider: Oct 13, 2018 Time Seen by Provider: 10:04 Subjective/Events-last exam patient is laying down in bed, feeling better today. No new complaint Review of Systems General: No Chills, No Night Sweats, No Fatigue, No Malaise, No Appetite, No Other HEENT: No Head Aches, No Visual Changes, No Eye Pain, No Ear Pain, No Dysphasia, No Sinus Congestion, No Post Nasal Drip, No Sore Throat, No Other Pulmonary: No Dyspnea, No Cough, No Pleuritic Chest Pain, No Other Cardiovascular: No: Chest Pain, Palpitations, Orthopnea, Paroxysmal Noc. Dyspnea, Edema, Lt Headedness, Other Objective-Cardiology Exam Last Set of Vital Signs Vital Signs 10/10/18 10/13/18 10/13/18 10/13/18 23:34 07:00 09:00 09:09 Pulse 77 Pulse Ox 94 O2 Delivery Nasal Cannula O2 Flow Rate 0.00 Capillary Refill : Less Than 3 Seconds I&O Intake and Output 10/13/18 00:00 Intake Total 765 ml Output Total 1675 ml Balance -910 ml Intake Oral 745 ml IV Total 20 ml Output Urine Total 1675 ml General: Alert, Cooperative HEENT: Atraumatic Neck: Supple, No JVD Lungs: Clear to Auscultation Heart: Regular Rate, Normal S1, Normal S2 Abdomen: Soft Extremities: No Clubbing, No Cyanosis Skin: No Rashes Neuro: Strength at 5/5 X4 Ext Psych/Mental Status: Mental Status NL A/P-Cardiology Admission Diagnosis Acute non-ST elevation myocardial infarction Coronary artery disease Urinary tract infection Hypertension Assessment/Plan Acute non-ST elevation myocardial infarction, known to have extensive coronary artery disease treated conservatively. Continue with medical therapy. Continue on aspirin and Plavix Urinary tract infection, receiving antibiotics, managed by primary care physician Coronary artery disease, history of stent done in December [address] Camarillo, cardiac catheterization was done in February 2015 showed total occlusion of the dominant right coronary artery proximally getting collaterals from the left s ystem, severe disease at the mid second diagonal artery, very small artery not amendable to intervention, patent stent in the proximal LAD with moderate disease in the mid LAD, moderate disease in the mid circumflex artery, prominent aorta, treated conservatively, I still recommend conservative management at this time, his elevation in troponin could be due to the occluded right coronary artery. No acute EKG changes were noted. CVA, patient lost vision in 2010 after a trauma, regained most of his vision but lost depth perception, using a cane. Carotid stenosis, ultrasound was done in 2015 showing moderate bilateral disease nonobstructive disease, continue to monitor Peripheral arterial disease, history of 70 percent stenosis of the right common iliac artery. His exercise ability is limited does not have claudication. 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 Abnormal chest x-ray, patient is scheduled to see Dr. Ac Cornejo cholesterol is really Hypertension, restart home medication monitor blood pressure Hyperlipidemia, monitor lipids History of seizure, epilepsy, seen by a neurologist in the past. History of tobaccoism, patient stopped smoking in 2010 Dementia, confusion, agitation. Okay for discharge and follow-up as an outpatient from cardiology standpoint Clinical Quality Measures DVT/VTE Risk/Contraindication: Risk Factor Score Per Nursin RFS Level Per Nursing on Admit: 4+=Very High KESHAV DERAS MD Oct 13, 2018 10:05
--- NOTE | 2018-10-13 10:41 | NUR ---
CM/SS. Patient discharged today to new Medicare skilled placement with [facility] [place] [facility], anticipated to be permanent. Patient has not been successful overall at home or in assisted living environment. Diagnosis-based behavior and personality traits are prohibitive for long range care planning and overall maintenance. When physically improved and moved to least restrictive environment, any decline seems to cause increase in negative behaviors. Confirmed with [facility] that patient's CARE Assessment remains current, provided certification to [facility] re same. Spouse aware of all arrangements and her obligation for paperwork with accepting facility. Return call this a.m. from [facility], their team does agree to accept patient back for assessment and treatment if screening indicates patient meets criteria for psychiatric care. Updated [facility] staff. Unit RN updated re forklift picker time scheduled for first available this a.m.
--- NOTE | 2018-10-13 11:23 | NUR ---
CALLED REPORT TO ILIANA AT [facility].
[2018-10-13 11:26] VITALS: BP 148/62
== END 2018-10-13 11:26 | DRG 281 ==
LOC: EDUNIT# 18:05 → ER 18:07 → EDBD 18:07 → ICU 21:30 → 4TH 10-13 05:45
PROVIDERS: ADMIT Internal Medicine; ATTEND Internal Medicine
DX: I21.4 Non-ST elevation (NSTEMI) myocardial infarction (principal); I25.10 Atherosclerotic heart disease of native coronary artery without angina pectoris; N39.0 Urinary tract infection, site not specified; F03.91 Unspecified dementia, unspecified severity, with behavioral disturbance; R33.9 Retention of urine, unspecified; I10 Essential (primary) hypertension; J44.9 Chronic obstructive pulmonary disease, unspecified; E78.5 Hyperlipidemia, unspecified; G20 Parkinson's disease; G40.909 Epilepsy, unspecified, not intractable, without status epilepticus; I69.398 Other sequelae of cerebral infarction; H54.60 Unqualified visual loss, one eye, unspecified; M19.91 Primary osteoarthritis, unspecified site; F32.9 Major depressive disorder, single episode, unspecified; F41.9 Anxiety disorder, unspecified; M54.5 Low back pain; I70.8 Atherosclerosis of other arteries; I65.23 Occlusion and stenosis of bilateral carotid arteries; Z95.5 Presence of coronary angioplasty implant and graft; Z87.891 Personal history of nicotine dependence; Z91.81 History of falling; B95.62 Methicillin resistant Staphylococcus aureus infection as the cause of diseases classified elsewhere
CPT/HCPCS: 36415; 71045; 80048; 80053; 80061; 80164; 80185; 81000; 82550; 83735; 84484; 85025; 87077; 87088; 87186; 93005; 93041; 93306; 96372; 96374